=== PATIENT | female | born 1985 | race Two or more races ===

== ENCOUNTER 2020-07-10 12:18 | Outpatient (REF) | payer OTHER, SELFPAY | END 2020-07-10 12:19 | disposition home or self-care (01) | LOC: HO.LAB 12:18 | PROVIDERS: Visit Provider Internal Medicine | DX: Z20.828 Contact with and (suspected) exposure to other viral communicable diseases (principal) | CPT/HCPCS: C9803; U0003 ==

== ENCOUNTER 2023-03-02 13:07 | Outpatient (AMB) | payer OTHER, SELFPAY ==
--- NOTE | 2023-03-02 13:14 | MHC.PC.OV ---
Vital Signs 03/02/23 13:15 Height 5 ft 2 in Weight 200 lb BMI 36.6 BP 130/80 Blood Pressure Location Lt brachial Position Sitting Pulse 71 Pulse Source Pulse Oximeter Temp 98.2 F Temp Source Oral Pulse Oximetry (%) 98 Oxygen Delivery Method Room Air Oxygen Flow Rate 98.2 Intake Visit Reasons: pain on belly button hurt to touch Intake Note: Patient is here with 0pain inside belly button area, no0 known injury, states it started yeaterday, states it travles to her right side. Allergies morphine [MORPHINE] Allergy (Severe, Verified 03/02/23 13:47) CHEST PRESSURE AND TIGHTNESS aspirin [ASPIRIN] Allergy (Intermediate, Verified 03/02/23 13:47) RASH, redness and itching codeine [CODEINE] Allergy (Intermediate, Verified 03/02/23 13:47) RASH, redness and itching ibuprofen [From Motrin] Allergy (Intermediate, Verified 03/02/23 13:47) Hives shellfish derived [SHELLFISH DERIVED] Allergy (Intermediate, Verified 03/02/23 13:47) RED/ITCH STERI-STRIP ADHESIVE Allergy (Intermediate, Uncoded 03/02/23 13:47) RASH Medication List - Last Reconciled 03/02/23 by Vibha Esparza CNP [id number] 50-325-40 mg 1 cap PO Q4-6H PRN cyclobenzaprine 10 mg PO TID PRN erenumab-aooe (Aimovig Autoinjector) 70 mg subcut ONCE 1 month levothyroxine (Synthroid) 175 mcg PO DAILY naproxen 500 mg PO BID 7 days omeprazole 20 mg PO DAILY topiramate 100 mg PO BEDTIME 3 months trazodone 50 mg PO BEDTIME PRN triamcinolone acetonide 0.1% 1 appl topical BID 14 days zolmitriptan (Zomig) 5 mg PO PRN; not to exceed 2 tablets in 24 hours and not to be taken sooner than 2-4 hours apart 1 month Tobacco use date assessed: 03/02/23 Dental Screening Dental Screen Date: 03/02/23 Did you have a dental visit in the last 12 months?: Yes Did you have a dental problem in the last 6 months where you did not have access to dental care?: No Was dental information given to patient?: Patient has dentist HPI HPI Comments History of Present Illness Details 38-year-old female presents with complaints of abdominal pain She notes the pain started yesterday on the umbilical area and have migrated to the right side of abdomen. She describes the pain as sharp and pulling. The pain has progressively gotten worse. No n/v/d or constipation. No fever, chills, body aches, fatigue, or weakness. No changes in bowel habits. Normal appetite. She reports history of appendectomy. Reports regular menstrual cycles and notes her LMP was a week ago. [facility] Surgical History History of appendectomy History of section History of cholecystectomy History of thyroidectomy Family History Father Diabetes Hyperlipidemia Mother Diabetes Skin cancer Hyperlipidemia Asthma Brother Brain cancer Social History Housing: House Alcohol intake: never Patient Tobacco Use Status: Never used Tobacco e-Cigarette/Vaping Use: Never Used Second Hand Smoke Exposure: No service: No Current occupational status: employed 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/hazards: No Cognitive needs: No Hearing needs: No Vision needs: No Questionnaire Thrive Questionnaire Date Thrive assessed: 07/21/21 JESUS ALBERTO-7 AMB Questionnaire JESUS ALBERTO-7 Date JESUS ALBERTO - 7 assessed: 05/20/22 Source: Developed by Drs. Ortega Alaniz, Gianna Carrion, Jeff Cardoso and colleagues, with an educational ismael from [employer]. Review of Systems Const Details: Const Denies chills, Denies fatigue, Denies fever(s), Denies headache(s) and Denies weakness ENT Denies dizziness and Denies headache(s) Card Denies chest pain, Denies lightheadedness, Denies dyspnea and Denies other (Palpitations) Resp Denies cough, Denies dyspnea, Denies wheezing and Denies other ( shortness of breath) GI Reports abdominal pain, Denies melena, Denies hematochezia, Denies change in bowel habits, Denies dyspepsia and Denies nausea Denies hematuria and Denies dysuria Musc Denies abnormal gait, Denies myalgias, Denies arthralgias, Denies numbness and Denies tingling Skin/Breast Denies rash, Denies unusual bruising and Denies wounds Neuro Denies abnormal gait, Denies dizziness, Denies headache(s), Denies memory loss, Denies numbness, Denies Sensory deficit (Neuro), Denies tingling and Denies weakness Psych Denies anxiety, Denies depression, Denies memory loss Endo Denies cold intolerance, Denies fatigue, Denies heat intolerance, Denies polydipsia and Denies polyuria Aller/Immun Denies wheezing Physical exam (Primary Care) Vital Signs: Last Vital Signs Temp 98.2 F 03/02/23 13:15 Pulse 71 03/02/23 13:15 BP 130/80 03/02/23 13:15 Pulse Ox 98 03/02/23 13:15 Oxygen Delivery Method Room Air 03/02/23 13:15 Oxygen Flow Rate 98.2 03/02/23 13:15 BMI result Body Mass Index 36.6 Tobacco/Smoking Status: Tobacco use Status Tobacco use date assessed 03/02/23 03/02/23 13:29 Patient Tobacco Use Status Never used Tobacco 03/02/23 13:29 e-Cigarette/Vaping Use Never Used 03/02/23 13:29 Thrive Assessment: Date of Thrive Assessment Date Thrive assessed 07/21/21 03/02/23 13:29 Const Other: General: no acute distress and well developed Nutritional Appearance: well nourished Orientation/consciousness: patient oriented x3 HENMT Head: Yes normocephalic and Yes atraumatic Eyes General: appearance normal, both eyes and all related structures Pupils: Equal, round and reactive pupils present EOM: EOMs intact bilaterally Resp Effort & Inspection: normal respiratory effort Auscultation: clear to auscultation bilaterally Cardio Rate: regular rate Rhythm: regular rhythm Heart sounds: S1 normal heart sound present, S2 normal heart sound present, no gallops, no murmurs and no rubs GI Palpation (GI): No Abdominal aortic bruit present, Soft to palpation, significant tenderness to palpation of the umbilical region and right lower quadrant, positive psoas sign, No hepatosplenomegaly present and No Rebound tenderness present Auscultation: normal bowel sounds General: Yes no CVA tenderness Back/Spine/Pelvis Back: no CVA tenderness Cervical Spine: cervical ROM normal and No Cervical spine tenderness Thoracic/Lumbar Spine: thoraco-lumbar ROM normal, No pain with thoraco-lumbar ROM, No thoracic spinal tenderness and No lumbar spinal tenderness Extrem General: Yes normal to inspection, No edema and No calf tenderness Skin General: warm and dry. Normal skin color. Normal skin turgor Lesions: no lesions Rashes: no rashes Trauma: no lacerations or abrasions Wounds: no wounds Nails: normal Neuro General: patient oriented x3, gait normal and no focal neuro deficit Cranial nerves: Yes Equal, round and reactive pupils present Cognition (Neuro): normal cognition Gait exam (Neuro): Normal gait present Sensory Exam: No Sensory deficit (Neuro) Psych Appearance: grossly normal Affect: normal affect Attitude: cooperative Thought process: Normal thought process present Assessment and Plan Assessment & Plan (1) Abdominal pain: Code(s): R10.9 - Unspecified abdominal pain Plan: Patient present with complaints of abdominal pain since yesterday. The pain started around the umbilicus and have radiated to her right lower quadrant. Naproxen ordered. Take as prescribed Significant tenderness to palpation of the umbilical region and right lower quadrant, positive psoas sign Stat CT scan ordered to rule out pancreatitis, SBO, diverticulitis, diverticulosis, liver disease, or gynecological issues like ovarian cyst Labs ordered Encouraged to go to the ED with worsening or new symptoms Verbalized understanding and agreed with treatment plan. Orders: Orders Comprehensive Met. Panel Today R10.9 - Unspecified abdominal pain Lipase Today R10.9 - Unspecified abdominal pain Complete Blood Count Auto Diff Today R10.9 - Unspecified abdominal pain CT abdomen w IV con Today R10.9 - Unspecified abdominal pain UA CC w/rflx Micro + Cult Today R10.9 - Unspecified abdominal pain Medications: Changed From naproxen 500 mg PO BID 7 days 14 tabs 0RF To naproxen 500 mg PO BID PRN 30 tabs 0RF pain Coding Level of Care Code Est Pt Level 4 (79071) Diagnoses Abdominal pain R10.9 Time Spent (min) 35
[2023-03-02 13:15] VITALS: BP 130/80; PULSE 71; TEMP 36.8; O2SAT 98; BMI 36.6
== END 2023-03-02 14:14 | disposition home or self-care (01) ==
PROVIDERS: PCP Hospitalist; Visit Provider Nurse Practitioner Family
DX: R10.9 Unspecified abdominal pain (principal)
CPT/HCPCS: 99214

== ENCOUNTER 2023-03-02 14:34 | Outpatient (REF) | payer OTHER, SELFPAY ==
[2023-03-02 14:53] LABS: MANUAL DIFF FLAG NO
[2023-03-02 15:30] LABS: Basophils Percent Auto 0.5 % (0-2); Eosinophils Absolute Auto 0.1 X10*3/uL (0.0-0.4); Eosinophils Percent Auto 0.9 % (0-4); Hematocrit 39.5 % (37.0-47.0); Hemoglobin 13.4 g/dl (12.0-16.0); Imm Gran Abs Auto 0.02 X10*3/uL (0.00-0.03); Imm Gran Pct Auto 0.3 % (0.0-0.4); Lymphocytes Absolute Auto 2.5 X10*3/uL (1.2-4.9); Lymphocytes Percent Auto 32.4 % (20-40); Mean Corpuscular HGB Conc 33.9 g/dl (31.0-35.0); Mean Corpuscular Hemoglobin 30.7 pg (27.0-33.0); Mean Corpuscular Volume 90.6 fL (80.0-98.0); Mean Platelet Volume 9.9 fL (9.4-12.3); Monocytes Absolute Auto 0.5 X10*3/uL (0.1-1.2); Monocytes Percent Auto 5.8 % (2-11); Neutrophils Absolute Auto 4.7 x10*3/uL (2.0-8.3); Neutrophils Percent Auto 60.1 % (45-73); Platelet Count 352 X10*3/uL (160-400); Red Blood Count 4.36 X10*6/uL (4.20-5.50); White Blood Count 7.8 X10*3/uL (4.8-10.8)
[2023-03-02 15:53] LABS: Alanine Aminotransferase 53 U/L (0-31); Albumin Level 3.9 g/dL (3.5-5.0); Alkaline Phosphatase 60 U/L (39-117); Anion Gap 11 (12-20); Aspartate Amino Transferase 36 U/L (5-31); Bilirubin Total 0.5 mg/dL (0.0-1.0); Blood Urea Nitrogen 9 mg/dL (9-16); Carbon Dioxide 26 mmol/L (22-29); Chloride 106 mmol/L (96-108); Estimated Glomerular Filt Rate > 60; Glucose Random 140 mg/dL (60-115); Lipase 18 U/L (8-78); Potassium 3.5 mmol/L (3.3-5.1); Sodium 139 mmol/L (135-145); Total Protein 7.1 g/dL (6.5-8.0)
== END 2023-03-02 14:35 | disposition home or self-care (01) ==
LOC: HO.LAB 14:34
PROVIDERS: PCP Hospitalist; Visit Provider Nurse Practitioner Family
DX: R10.9 Unspecified abdominal pain (principal)
CPT/HCPCS: 36415; 80053; 83690; 85025

== ENCOUNTER 2023-03-03 13:21 | Outpatient (REF) | payer OTHER, SELFPAY ==
--- NOTE | ~2023-03-03 | CT_ITS ---
EXAMINATION: CT ABDOMEN AND PELVIS WITH CONTRAST CLINICAL INFORMATION: Abdominal pain COMPARISON: 06/23/2016 TECHNIQUE: Multidetector volumetric images were obtained from the superior aspect of the liver through the pubic symphysis following administration 85 mL of Omnipaque 350 intravenous contrast. Sagittal and coronal reformatted images were obtained on the technologist's workstation. Oral contrast: No This CT examination was performed using dose optimization techniques as appropriate, variously including the following: *Automated exposure control *Adjustment of mA and/or kV according to patient size (this includes techniques or standardized protocols for targeted exams where dose is matched to indication/reason for exam; i.e. extremities or head) *Use of iterative reconstruction technique DLP: 619 mGy-cm FINDINGS: LUNG BASES: The visualized lung bases are unremarkable. LIVER, GALLBLADDER, AND BILIARY TREE: The liver is normal in size, shape, and attenuation. No focal hepatic lesion or biliary ductal dilatation is present. Patient is status post cholecystectomy CBD is nondilated PANCREAS: Unremarkable. SPLEEN: Unremarkable. ADRENAL GLANDS: Unremarkable. KIDNEYS AND URETERS: The kidneys are normal in size, shape, and attenuation. No hydronephrosis, hydroureter, or calculi seen. No perinephric stranding. BLADDER: Unremarkable. GASTROINTESTINAL TRACT: The small and large bowel are unremarkable. The appendix is surgically absent. ABDOMINAL WALL: No significant hernia is appreciated. LYMPH NODES: Normal. VASCULAR: Unremarkable. PELVIC VISCERA: An bilateral ovarian prominence most likely cysts on the left ovary measured 4.0 x 3.2 cm in length right ovary measured 4.1 x 2.8 cm cyst. No evidence of free fluid in the pelvis OSSEOUS STRUCTURES: Unremarkable. CT/CT abdomen pelvis w IV con IMPRESSION: Bilateral ovarian cysts. Correlate with pelvic ultrasound if clinically warranted Status post cholecystectomy and appendectomy. Fleischner guidelines were followed.
[2023-03-03 14:49] LABS: Appearance Urine Clear; Color Urine Yellow; Glucose Urine UA Negative (Negative); Leukocyte Esterase Urine Negative (Negative); Nitrite Urine Negative (Negative); Specific Gravity - Urine 1.015 (1.005-1.025); Urine Blood Negative (Negative); Urine Ketones Negative (Negative); Urine Protein Negative (Neg-Trace)
[2023-03-03] MEDS: iohexoL 350 MG/ML 100 ML INFUS..BTL IV (17:20)
[2023-03-03] MEDS: Barium Sulfate Oral (Vanilla) 450 ML ORAL.SUSP 900 ML PO (17:21)
== END 2023-03-03 13:22 | disposition home or self-care (01) ==
LOC: HO.CT 13:21
PROVIDERS: PCP Hospitalist; Visit Provider Nurse Practitioner Family
DX: R10.9 Unspecified abdominal pain (principal)
CPT/HCPCS: 74177; 81003; Q9967

== ENCOUNTER 2023-03-19 14:24 | Outpatient (REF) | payer OTHER, SELFPAY ==
--- NOTE | ~2023-03-19 | US_ITS ---
EXAMINATION: US PELVIC AND TRANSVAGINAL CLINICAL INFORMATION: Bilateral ovarian cyst. COMPARISON: None available. TECHNIQUE: Ultrasound of the pelvis is performed using both transabdominal and transvaginal transducers along with Doppler. Transvaginal imaging is performed due to inadequate visualization transabdominally. FINDINGS: Uterus: The uterus is anteverted and measures 9.4 x 5.1 x 6.8 cm. The double wall endometrial thickness is 0.80 cm. The uterus is smooth in contour and has normal myometrial echogenicity. No visible fibroid. Adnexa: Both ovaries are visualized. There is normal color flow to the adnexa. There is no ovarian torsion. There is no pelvic ascites or fluid collection. Right ovary measures 4.6 x 2.6 x 4.5 cm and volume 27.7 mL. No focal lesion is seen. Left ovary measures 3.9 x 2.6 x 4.0 cm and volume 20.9 mL. There is an echogenic solid shadowing nonvascular lesion likely dermoid versus large calcification. There is no free fluid in the cul-de-sac. US/US pelvic and transvaginal IMPRESSION: Anteverted and unremarkable uterus. Large left ovarian probable dermoid. Both ovarian volumes are slightly large. No free fluid in the cul-de-sac.
== END 2023-03-19 14:25 | disposition home or self-care (01) ==
LOC: HO.HMGCX 14:24
PROVIDERS: PCP Hospitalist; Visit Provider Nurse Practitioner Family
DX: R10.9 Unspecified abdominal pain (principal); N83.201 Unspecified ovarian cyst, right side; N83.202 Unspecified ovarian cyst, left side
CPT/HCPCS: 76830; 76856

== ENCOUNTER 2023-04-15 07:29 | Outpatient (REF) | payer OTHER, SELFPAY ==
[2023-04-15 14:15] LABS: CT PCR NOT DETECTED (Not Detect.); NG PCR NOT DETECTED (Not Detect.)
[2023-04-17 06:39] LABS: HPV mRNA E6/E7 rflx Not Detected (Not Detected)
== END 2023-04-15 07:30 | disposition home or self-care (01) ==
LOC: HO.LNP 07:29
PROVIDERS: PCP Hospitalist; Visit Provider Obstetrics & Gynecology
DX: Z12.4 Encounter for screening for malignant neoplasm of cervix (principal); Z11.51 Encounter for screening for human papillomavirus (HPV); N83.299 Other ovarian cyst, unspecified side; N93.9 Abnormal uterine and vaginal bleeding, unspecified
CPT/HCPCS: 0353U; 81025; 87624; 88142

== ENCOUNTER 2023-04-15 07:29 | Outpatient (AMB) | payer OTHER, SELFPAY ==
[2023-04-15 07:34] VITALS: BP 124/76; BMI 36.3
--- NOTE | 2023-04-15 07:34 | A.OFFVIS_ITS ---
Intake Vital Signs 04/15/23 07:34 Height 5 ft 2 in Weight 198 lb 6.656 oz BMI 36.3 BP 124/76 Intake Visit Reasons: Ovarian Cyst/PCP referral Administrative Support Specialist Required: No Information Interpreted: non-clinical & clinical Accompanied by: Self / Same As Patient Allergies morphine [MORPHINE] Allergy (Severe, Verified 04/15/23 07:35) CHEST PRESSURE AND TIGHTNESS aspirin [ASPIRIN] Allergy (Intermediate, Verified 04/15/23 07:35) RASH, redness and itching codeine [CODEINE] Allergy (Intermediate, Verified 04/15/23 07:35) RASH, redness and itching ibuprofen [From Motrin] Allergy (Intermediate, Verified 04/15/23 07:35) Hives shellfish derived [SHELLFISH DERIVED] Allergy (Intermediate, Verified 04/15/23 07:35) RED/ITCH STERI-STRIP ADHESIVE Allergy (Intermediate, Uncoded 04/15/23 07:35) RASH Is last menstrual period known: Yes Last menstrual period: 03/16/23 HPI HPI Comments History of Present Illness Details Presenting referred from PCP regarding heavy menstrual cycle associated with pelvic cramping and and ovarian cyst identified on a recent ultrasound. Pelvic ultrasound done on 03/19/2023 showed the following: Uterus: The uterus is anteverted and measures 9.4 x 5.1 x 6.8 cm. The double wall endometrial thickness is 0.80 cm. The uterus is smooth in contour and has normal myometrial echogenicity. No visible fibroid. Adnexa: Both ovaries are visualized. There is normal color flow to the adnexa. There is no ovarian torsion. There is no pelvic ascites or fluid collection. Right ovary measures 4.6 x 2.6 x 4.5 cm and volume 27.7 mL. No focal lesion is seen. Left ovary measures 3.9 x 2.6 x 4.0 cm and volume 20.9 mL. There is an echogenic solid shadowing nonvascular lesion likely dermoid versus large calcification. There is no free fluid in the cul-de-sac. Last mammogram was 4 years ago, last co testing was many years ago [facility] Medical History History of hypothyroidism Surgical History History of thyroidectomy History of appendectomy History of cholecystectomy History of section Family History Father Diabetes Hyperlipidemia Mother Diabetes Skin cancer Hyperlipidemia Asthma Brother Brain cancer Social History Household Members: Spouse and Children Housing: House Alcohol intake: never Patient Tobacco Use Status: Never used Tobacco e-Cigarette/Vaping Use: Never Used Second Hand Smoke Exposure: No service: No Current occupational status: employed 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 [employer] 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/hazards: No Sexual orientation: Straight/Heterosexual Gender identity: Female Cognitive needs: No Hearing needs: No Vision needs: No Female Reproductive History Menstrual Date of last menstrual period: 03/16/23 Total pregnancies: 5 Full term: 2 Number of Living Children: 2 Ab spontaneous: 3 Review of Systems Const All systems reviewed & are unremarkable except as noted in HPI and below Card Reports as per HPI Resp Reports as per HPI GI Reports as per HPI and Reports no additional complaints Reports as per HPI Physical Exam Vital Signs: BMI result Body Mass Index 36.3 Const General: cooperative, healthy appearing and comfortable Chest Chest palpation & inspection: normal inspection of the chest and normal pa lpation of entire chest wall Breast/axilla inspection: normal inspection of the breasts and normal inspection of the axillae Breast/axilla palpation: normal palpation of the breasts, normal palpation of the axillae and no axillary lymphadenopathy Resp Effort & Inspection: normal respiratory effort Auscultation: clear to auscultation bilaterally Percussion: percussion normal Cardio Palpation: normal PMI Rate: regular rate Rhythm: regular rhythm Heart sounds: no murmurs and no rubs Peripheral pulses: Peripheral pulses 2+ throughout GI Inspection: Yes normal to inspection Palpation (GI): Soft to palpation, nontender, no guarding, not rigid and No hepatosplenomegaly present Percussion: Yes normal to percussion Auscultation: normal bowel sounds Rectal Exam - Female: deferred General: Yes bladder normal to palpation External Female Exam: No lesion Speculum Exam - Vagina: normal appearance of the vagina, normal palpation, normal vaginal discharge and not erythematous Speculum Exam - Cervix: normal appearance of the cervix and normal palpation Bimanual exam- vagina & uterus: normal bimanual exam, normal palpation, uterine size normal, bladder normal to palpation, consistency normal and normal palpation Bimanual Exam- Adnexa, other: normal adnexae, no masses and no tenderness Assessment & Plan Assessment & Plan (1) Complex ovarian cyst: Comment: Possible dermoid Code(s): N83.299 - Other ovarian cyst, unspecified side Plan: UPT done in the office was negative, GC/CT collected. CA 125 ordered Discussed with the patient the complex ovarian cyst by ultrasound. Discussed with the patient the Ultrasound findings, the main limitation of transvaginal ultrasonography alone as a diagnostic tool to distinguish benign from malignant masses relates to its lack of specificity and low positive predictive value for cancer. The differential diagnosis discussed with the patient includes the following but not limited to: benign and malignant gynecological and non- gynecological causes. Explained to the patient that 1 of the possible causes could be dermoid tumor per ultrasound , these tumors have a characteristic imaging appearance, which allows reasonably accurate noninvasive diagnosis in many cases with high reported specificity is 98 to 100 percent, but definitive diagnosis is made at the time of surgical excision. Malignant transformation occurs in 0.2 to 2 percent of mature cystic teratomas The treatment is laparoscopic ovarian cystectomy /possible oophorectomy in order to make a definitive diagnosis, preserve ovarian tissue, and avoid potential problems such as torsion, rupture, or development of malignant components. For women who have completed childbearing, salpingo-oophorectomy is also acceptable treatment. Benign cystic teratomas do not recur if surgically resected. Laboratory evaluation include UPT and GC/CT , serum tumor marker CA 125 . Discussed with the patient that CA 125 is a protein associated with epithelial ovarian malignancies, but also frequently expressed at lower levels by nonmalignant tissue. Elevation of CA 125 levels may occur in nonmalignant gynecologic conditions, and in non-gynecologic cancers, It is most useful in postmenopausal women and in identifying non mucinous epithelial cancer. The CA 125 level is elevated in 80% of patients with epithelial ovarian cancer but in only 50% of patients with stage I disease. The overall sensitivity of CA 125 testing in distinguishing benign from malignant adnexal masses reportedly ranges from 61% to 90%; discussed with the patient the specificity, positive predictive value and negative predictive value. Discussed with the patient options of treatment , in case CA 125 is not elevated, including laparoscopy ovarian cystectomy/oophorectomy vs. expectant management with repeat US in repeating pelvic US in 6-12 weeks from previous US. If the ovarian complex cyst is persistent larger and / or more complex looking, or higher CA 125 will refer to gynecologic Oncology. All pros, cons, risks and benefits of each approach were discussed with the patient including but not limited to a delay in the diagnosis and treatment of ovarian cancer affecting the prognosis; The patient decided to go ahead with repeat ultrasound within 3 weeks since last ultrasound was done in 03/19. Instructions given the patient to schedule a 3 weeks follow-up ultrasound appointment. All questions were answered & the patient verbalized understanding and agreed with the plan. (2) Abnormal uterine bleeding (AUB): Comment: With dysmenorrhea Code(s): N93.9 - Abnormal uterine and vaginal bleeding, unspecified Plan: Co testing done, GC and chlamydia taken CBC, TSH, prolactin, HCG, screening mammogram and repeat pelvic ultrasound ordered. Discussed with the patient the different causes of abnormal bleeding including thyroid disorders, uterine and ovarian pathology, endometrial hyperplasia, carcinoma and other potential causes. Discussed with the patient the work up including CBC (to r/o anemia), TSH, pelvic Ultrasound, endometrial biopsy to r/o endometrial pathology. All questions answered and the patient verbalized understanding. Instructed the patient to schedule an appointment for an endometrial biopsy in 2 weeks. Orders: Orders US pelvic and transvaginal 3 Weeks N93.9 - Abnormal uterine and vaginal bleeding , unspecified Prolactin Today N93.9 - Abnormal uterine and vaginal bleeding, unspecified MM screening mammo BI Today Z12.31 - Encounter for screening mammogram for malignant neoplasm of breast CA-125 Today N83.299 - Other ovarian cyst, unspecified side HCG Quantitative Today N93.9 - Abnormal uterine and vaginal bleeding, unspecified TSH reflex Free T4 Today N93.9 - Abnormal uterine and vaginal bleeding, unspecified Complete Blood Count no Diff Today N93.9 - Abnormal uterine and vaginal bleeding, unspecified Coding Level of Care Code New Pt Level 3 (34655) Diagnoses Complex ovarian cyst N83.299 Abnormal uterine bleeding (AUB) N93.9
== END 2023-04-15 08:30 | disposition home or self-care (01) ==
PROVIDERS: PCP Hospitalist; Visit Provider Obstetrics & Gynecology
DX: N83.299 Other ovarian cyst, unspecified side (principal); N93.9 Abnormal uterine and vaginal bleeding, unspecified; Z32.02 Encounter for pregnancy test, result negative
CPT/HCPCS: 99203

== ENCOUNTER 2023-04-23 16:16 | Outpatient (REF) | payer OTHER, SELFPAY | END 2023-04-23 16:17 | disposition home or self-care (01) | LOC: HO.MAMMO 16:16 | PROVIDERS: PCP Nurse Practitioner Family; Visit Provider Obstetrics & Gynecology | DX: Z12.31 Encounter for screening mammogram for malignant neoplasm of breast (principal) | CPT/HCPCS: 77063; 77067 ==

== ENCOUNTER → 2023-04-23 16:30 | Outpatient (BNV) | payer OTHER, SELFPAY | PROVIDERS: PCP Nurse Practitioner Family; Visit Provider Radiology Diagnostic Radiology | DX: Z12.31 Encounter for screening mammogram for malignant neoplasm of breast (principal) | CPT/HCPCS: 77063; 77067 ==

== ENCOUNTER 2023-05-06 16:23 | Outpatient (REF) | payer OTHER, SELFPAY ==
--- NOTE | ~2023-05-06 | US_ITS ---
EXAMINATION: US PELVIS CLINICAL INFORMATION: Abnormal uterine and vaginal bleeding; the last menstrual period was 2 days prior. COMPARISON: Pelvic ultrasound dated 03/19/2023; CT abdomen and pelvis dated 03/03/2023. TECHNIQUE: Ultrasound of the pelvis is performed using both transabdominal and transvaginal transducers along with Doppler. Transvaginal imaging is performed due to inadequate visualization transabdominally. FINDINGS: Uterus: The uterus is anteverted and anteflexed. The uterus measures 10.4 x 4.5 x 5.5 cm. Nabothian cysts are seen within the cervix. There is trace endocervical free fluid. The double wall endometrial thickness is 7 mm. The uterus is smooth in contour and has normal myometrial echogenicity. No visible fibroid. Adnexa: Both ovaries are visualized. There is normal color flow to the adnexa. There is no ovarian torsion. There is no pelvic ascites or fluid collection. Right ovary measures 2.8 x 2.2 x 2.1 cm, volume 10.0 mL. Left ovary measures 4.3 x 2.9 x 3.2 cm, volume 21.0 mL. The left ovary contains a 1.0 x 1.1 x 0.9 cm hypoechoic collection with decreased through sound transmission and no associated color Doppler flow. On the ultrasound dated 03/19/2023, this measured 2.1 x 2.0 x 2.3 cm. Of note, no calcification is seen of the left ovary on the CT examination of 03/03/2023. US/US pelvic and transvaginal IMPRESSION: 1. A persistent 1.0 cm hypoechoic, shadowing density is seen within the left ovary. This appears diminished in size from 03/19/2023. No corresponding calcification is seen of the left ovary on the CT examination of 03/03/2023. This could represent a dermoid tumor, endometrioma or resolving hemorrhagic cyst, although the shadowing is somewhat atypical. The interim decrease in size is reassuring. Consider continued ultrasound follow-up to resolution. If clinically warranted, this could be further evaluated with pelvic MRI. 2. Nabothian cysts are seen within the cervix. 3. There is trace endocervical free fluid.
== END 2023-05-06 16:24 | disposition home or self-care (01) ==
LOC: HO.US 16:23
PROVIDERS: PCP Nurse Practitioner Family; Visit Provider Obstetrics & Gynecology
DX: N93.9 Abnormal uterine and vaginal bleeding, unspecified (principal)
CPT/HCPCS: 76830; 76856

== ENCOUNTER 2023-06-01 07:34 | Outpatient (REF) | payer OTHER, SELFPAY | END 2023-06-01 07:35 | disposition home or self-care (01) | LOC: HO.LNP 07:34 | PROVIDERS: PCP Hospitalist; Visit Provider Obstetrics & Gynecology | DX: N93.9 Abnormal uterine and vaginal bleeding, unspecified (principal); N83.299 Other ovarian cyst, unspecified side | CPT/HCPCS: 58100; 81025; 88305; 99212 ==

== ENCOUNTER 2023-06-01 07:34 | Outpatient (AMB) | payer OTHER, SELFPAY ==
[2023-06-01 07:44] VITALS: BP 110/70; BMI 36.3
--- NOTE | 2023-06-01 07:44 | A.OFFVIS_ITS ---
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 Cleaner Repair Person: Vacuum Cleaner Repair Person Present (Loretta REYNOLDS) Accompanied by: Self / Same As Patient Allergies morphine [MORPHINE] Allergy (Severe, Verified 06/01/23 07:45) CHEST PRESSURE AND TIGHTNESS aspirin [ASPIRIN] Allergy (Intermediate, Verified 06/01/23 07:45) RASH, redness and itching codeine [CODEINE] Allergy (Intermediate, Verified 06/01/23 07:45) RASH, redness and itching ibuprofen [From Motrin] Allergy (Intermediate, Verified 06/01/23 07:45) Hives shellfish derived [SHELLFISH DERIVED] Allergy (Intermediate, Verified 06/01/23 07:45) RED/ITCH STERI-STRIP ADHESIVE Allergy (Intermediate, Uncoded 06/01/23 07:45) RASH Is last menstrual period known: No HPI HPI Comments History of Present Illness Details Pen EMB. Pelvic ultrasound showed the following: Uterus: The uterus is anteverted and anteflexed. The uterus measures 10.4 x 4.5 x 5.5 cm. Nabothian cysts are seen within the cervix. There is trace endocervical free fluid. The double wall endometrial thickness is 7 mm. The uterus is smooth in contour and has normal myometrial echogenicity. No visible fibroid. Adnexa: Both ovaries are visualized. There is normal color flow to the adnexa. There is no ovarian torsion. There is no pelvic ascites or fluid collection. Right ovary measures 2.8 x 2.2 x 2.1 cm, volume 10.0 mL. Left ovary measures 4.3 x 2.9 x 3.2 cm, volume 21.0 mL. The left ovary contains a 1.0 x 1.1 x 0.9 cm hypoechoic collection with decreased through sound transmission and no associated color Doppler flow. On the ultrasound dated 03/19/2023, this measured 2.1 x 2.0 x 2.3 cm. Of note, no calcification is seen of the left ovary on the CT examination of 03/03/2023. 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 hysteroscopy D&C) & the risks were discussed with the patient including but not limited: pain, uterine perforation, bleeding, infection, possible injury to bladder, bowel, ureter, possible need for blood transfusion with all its possible risks. The patient verbalized understanding all questions answered and signed consent. Urine test done in the office was negative The patient was placed into the dorsal lithotomy position; a speculum was inserted in the vagina. Using aseptic technique for the procedure, the cervix was cleansed with Betadine. The anterior lip of the cervix was grasped with a single tooth tenaculum. The uterus was sounded to 10 cm with a 4 mm Pipelle was used. Tissues samples were obtained and placed in formalin, in a patient labeled container and sent to the pathology department. At the end of the procedure, there was minimal bleeding noted The patient tolerated the procedure well and was discharged in good condition with the following instructions: Nothing in the vagina until the bleeding stops. No sex until the bleeding stops, to call if any of the following occurs: fever (>100.4), flu-like symptoms, abdominal pain, heavy bleeding, four smelling vaginal discharge. The patient was instructed to schedule a Follow up appointment in 2 weeks to discuss pathology results of the biopsy and treatment options. This note was generated with a voice recognition program. Some errors may have been overlooked during the review of this note. Sometimes these errors may affect the content or meaning of a given sentence. [id number] Biopsy Results AMB Test Urine AMB Test Urine Negative Last Edit by Loretta Teixeira CMA on 07:46 Assessment & Plan Assessment & Plan (1) Abnormal uterine bleeding (AUB): Comment: With dysmenorrhea Code(s): N93.9 - Abnormal uterine and vaginal bleeding, unspecified Plan: EMB done, see procedure note (2) Complex ovarian cyst: Comment: Decreased in size Code(s): N83.299 - Other ovarian cyst, unspecified side Plan: Discussed with the patient the complex ovarian cyst by ultrasound. Discussed with the patient the Ultrasound findings, the main limitation of transvaginal ultrasonography alone as a diagnostic tool to distinguish benign from malignant masses relates to its lack of specificity and low positive predictive value for cancer. The differential diagnosis discussed with the patient includes the following but not limited to: benign and malignant gynecological and non-gynecological causes. Laboratory evaluation include UPT and GC/CT , post done and negative, serum tumor marker CA 125, which not been done yet . Discussed with the patient that CA 125 is a protein associated with epithelial ovarian malignancies, but also frequently expressed at lower levels by nonmalignant tissue. Elevation of CA 125 levels may occur in nonmalignant gynecologic conditions, and in non-gynecologic cancers, It is most useful in postmenopausal women and in identifying non mucinous epithelial cancer. The CA 125 level is elevated in 80% of patients with epithelial ovarian cancer but in only 50% of patients with stage I disease. The overall sensitivity of CA 125 testing in distinguishing benign from malignant adnexal masses reportedly ranges from 61% to 90%; discussed with the patient the specificity, positive predictive value and negative predictive value. Discussed with the patient options of treatment , in case CA 125 is not elevated, including laparoscopy ovarian cystectomy/oophorectomy vs. expectant management with repeat US in repeating pelvic US in 6 weeks from previous US. If the ovarian complex cyst is persistent larger and / or more complex looking, or higher CA 125 will refer to gynecologic Oncology. All pros, cons, risks and benefits of each approach were discussed with the patient including but not limited to a delay in the diagnosis and treatment of ovarian cancer affecting the prognosis; The patient decided to go ahead with expectant management. Instructions given the patient to schedule a 6 week follow-up ultrasound appointment. All questions were answered & the patient verbalized understanding and agreed with the plan. Orders: Orders US pelvic and transvaginal 6 Weeks N83.299 - Other ovarian cyst, unspecified side AMB HCG Urine Test Today Z32.02 - Encounter for test, result negative AMB Endometrial Biopsy Today N93.9 - Abnormal uterine and vaginal bleeding, unsp ecified Coding Level of Care Code Est Pt Level 3 (58369) Procedure Only Diagnoses Abnormal uterine bleeding (AUB) N93.9 Complex ovarian cyst N83.299 CPT Codes Endometrial Biopsy - CPT: 95990-Sfddurvasjp Biopsy ([id number])
== END 2023-06-01 08:05 | disposition home or self-care (01) ==
PROVIDERS: PCP Hospitalist; Visit Provider Obstetrics & Gynecology
DX: N83.292 Other ovarian cyst, left side (principal); N93.9 Abnormal uterine and vaginal bleeding, unspecified; Z32.02 Encounter for pregnancy test, result negative
CPT/HCPCS: 58100; 99213

== ENCOUNTER 2023-07-07 13:40 | Outpatient (REF) | payer OTHER, SELFPAY ==
--- NOTE | ~2023-07-07 | US_ITS ---
EXAMINATION: US PELVIS CLINICAL INFORMATION: Ovarian cysts. Last menstrual period approximately 2 months ago. COMPARISON: 05/06/2023. TECHNIQUE: Ultrasound of the pelvis is performed using both transabdominal and transvaginal transducers along with Doppler. Transvaginal imaging is performed due to inadequate visualization transabdominally. FINDINGS: The uterus is heterogeneous and measures 9.6 x 5.4 x 6.0 cm. No discrete fibroids are identified. Endometrial thickness is 0.8 cm. No significant free fluid. Right ovary measures 4.9 x 2.0 x 4.2 cm, volume 21.5 mL. Right ovary is grossly unremarkable, although visualization limited due to bowel gas. Left ovary measures 5.1 x 2.8 x 3.4 cm, volume 25.7 mL. Left ovarian 2.4 x 2.1 x 2.2 cm heterogeneous lesion of mixed echogenicity with some hyperechoic areas raising the possibility of a dermoid. Left ovarian lesion measured 1.1 x 1.1 x 0.9 cm on ultrasound of 05/06/2023, and 2.2 x 2.0 x 2.3 cm on ultrasound of 03/19/2023, although differences in measurements could partially be attributable to technical differences as well as limited visualization due to bowel gas. US/US pelvic and transvaginal IMPRESSION: Left ovarian 2.4 cm lesion of mixed echogenicity with some hyperechoic areas raising the possibility of a dermoid. Left ovarian lesion measured 1.1 x 1.1 x 0.9 cm on ultrasound of 05/06/2023 and 2.2 x 2.0 x 2.3 cm on ultrasound of 03/19/2023, although differences in measurements could partially be attributable to technical differences as well as limited visualization due to bowel gas. Gynecologic consultation and additional imaging with MRI employing intravenous contrast recommended.
[2023-07-07 16:51] LABS: Hematocrit 42.7 % (37.0-47.0); Hemoglobin 14.1 g/dl (12.0-16.0); Mean Corpuscular Hemoglobin 30.2 pg (27.0-33.0); Mean Corpuscular Volume 91.4 fL (80.0-98.0); Mean Platelet Volume 10.4 fL (9.4-12.3); Platelet Count 290 X10*3/uL (160-400); Red Blood Count 4.67 X10*6/uL (4.20-5.50); Red Cell Distribution Width 12.2 % (11.0-16.0); White Blood Count 6.6 X10*3/uL (4.8-10.8)
[2023-07-07 17:50] LABS: HCG Quantitative < 2 mIU/mL; TSH reflex Free T4 12.44 uIU/mL (0.32-4.0)
[2023-07-07 19:03] LABS: Free T4 (Free Thyroxine) 0.68 ng/dL (0.71-1.85)
[2023-07-09 05:58] LABS: Prolactin 4.9 ng/mL
[2023-07-09 13:00] LABS: CA-125 5 U/mL (<35)
== END 2023-07-07 13:41 | disposition home or self-care (01) ==
LOC: HO.HMGCX 13:40
PROVIDERS: PCP Hospitalist; Visit Provider Obstetrics & Gynecology
DX: N83.299 Other ovarian cyst, unspecified side (principal); N93.9 Abnormal uterine and vaginal bleeding, unspecified
CPT/HCPCS: 36415; 76830; 76856; 84146; 84439; 84443; 84702; 85027; 86304

== ENCOUNTER 2023-07-27 07:36 | Outpatient (AMB) | payer OTHER, SELFPAY ==
--- NOTE | 2023-07-27 07:39 | MHC.OFFVIS ---
Intake Vital Signs 07/27/23 07:41 Height 5 ft 2 in Weight 198 lb 6.656 oz BMI 36.3 BP 118/70 Intake Visit Reasons: EMB results/ultra sound follow up Allergies morphine [MORPHINE] Allergy (Severe, Verified 06/01/23 07:45) CHEST PRESSURE AND TIGHTNESS aspirin [ASPIRIN] Allergy (Intermediate, Verified 06/01/23 07:45) RASH, redness and itching codeine [CODEINE] Allergy (Intermediate, Verified 06/01/23 07:45) RASH, redness and itching ibuprofen [From Motrin] Allergy (Intermediate, Verified 06/01/23 07:45) Hives shellfish derived [SHELLFISH DERIVED] Allergy (Intermediate, Verified 06/01/23 07:45) RED/ITCH STERI-STRIP ADHESIVE Allergy (Intermediate, Uncoded 06/01/23 07:45) RASH HPI HPI Comments History of Present Illness Details The patient is presenting for follow-up to discuss the results of her abnormal uterine bleeding workup and options of treatment. The following workup was done.: H&H= 14.1/42.7 TSH elevated at 12.41 and free T4 low at 0.68 HCG, prolactin within normal GC and chlamydia were negative. Endometrial biopsy pathology showed proliferative endometrium no evidence of hyperplasia and/or malignancy. Co testing was done was negative. Mammogram was BI-RADS 1 Pelvic ultrasound showed the following: The uterus is heterogeneous and measures 9.6 x 5.4 x 6.0 cm. No discrete fibroids are identified. Endometrial thickness is 0.8 cm. No significant free fluid. Right ovary measures 4.9 x 2.0 x 4.2 cm, volume 21.5 mL. Right ovary is grossly unremarkable, although visualization limited due to bowel gas. Left ovary measures 5.1 x 2.8 x 3.4 cm, volume 25.7 mL. Left ovarian 2.4 x 2.1 x 2.2 cm heterogeneous lesion of mixed echogenicity with some hyperechoic areas raising the possibility of a dermoid. Left ovarian lesion measured 1.1 x 1.1 x 0.9 cm on ultrasound of 05/06/2023, and 2.2 x 2.0 x 2.3 cm on ultrasound of 03/19/2023, although differences in measurements could partially be attributable to technical differences as well as limited visualization due to bowel gas. 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 [employer] 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/hazards: No Sexual orientation: Straight/Heterosexual Gender identity: Female Cognitive needs: No Hearing needs: No Vision needs: No Review of Systems Const All systems reviewed & are unremarkable except as noted in HPI and below Reports as per HPI and Reports no additional complaints GI Reports no additional complaints Reports no additional complaints Physical Exam Vital Signs: Last Vital Signs BP 118/70 07/27/23 07:41 BMI result Body Mass Index 36.3 Assessment & Plan Assessment & Plan (1) Abnormal uterine bleeding (AUB): Comment: With dysmenorrhea Code(s): N93.9 - Abnormal uterine and vaginal bleeding, unspecified Plan: Discussed with the patient the results of the work up done and options of treatment including Lysteda, control pills, Mirena IUD, endometrial ablation and hysterectomy. All pros, cons, risks and benefits if each option was discussed with the patient and the patient decided to go ahead with Mirena IUD so a more detailed discussion about it was conducted including mechanism of action, risks (uterine perforation, infection, injury to bladder, bowel, displacement, and others) benefits (hypo menorrhea, amenorrhea, ...). GC/CT were taken recently and were negative and the patient was instructed to schedule Mirena IUD insertion on day 1-5 of next cycle . All questions answered, the patient verbalized understanding (2) Complex ovarian cyst: Code(s): N83.299 - Other ovarian cyst, unspecified side Plan: Discussed with the patient the persistent complex ovarian cyst solid component by Ultrasound. The differential diagnosis discussed with the patient includes the following but not limited to: benign and malignant gynecological and non-gynecological. Discussed with the patient that per ACOG guidelines, when a patient with a suspicious or persistent complex adnexal mass requires surgical evaluation, a physician trained to appropriately stage and debulk ovarian cancer should perform the operation. Surgical exploration should be performed in a hospital facility that has the necessary support and consultative services to optimize the patient?s outcome. When a malignant ovarian tumor is discovered incidentally, a gynecologic oncologist should be consulted intraoperatively. Recommended CA 125 and proceed with laparoscopic ovarian cystectomy/possible oophorectomy. Informed the patient that there is no gynecologic oncologist available on staff at [facility] , therefore the patient will be referred to an OBGYN practice at [facility] of her choice where during surgery there is immediate access to a gynecologic oncologist intraoperatively in case there was any suspicion or evidence of malignancy. The patient elected to be referred to an OBGYN at [facility]. Instructed the patient to call our office back in case a referral appointment is not scheduled, missed or canceled so that we will assist on rescheduling another appointment, the patient verbalized understanding agreed with the plan. (3) Hypothyroidism (acquired): Code(s): E03.9 - Hypothyroidism, unspecified Plan: Discussed with patient results of heard elevated TSH and low free T4, the patient schedule appointments PCP for further management Orders: Orders Carbohydrate Antigen 19-9 Today N83.299 - Other ovarian cyst, unspecified side Carcinoembryonic Antigen Today N83.299 - Other ovarian cyst, unspecified side CA-125 Today N83.299 - Other ovarian cyst, unspecified side Coding Level of Care Code Est Pt Level 3 (49367) Diagnoses Abnormal uterine bleeding (AUB) N93.9 Complex ovarian cyst N83.299 Hypothyroidism (acquired) E03.9
[2023-07-27 07:41] VITALS: BP 118/70; BMI 36.3
== END 2023-07-27 09:07 | disposition home or self-care (01) ==
PROVIDERS: PCP Hospitalist; Visit Provider Obstetrics & Gynecology
DX: N93.9 Abnormal uterine and vaginal bleeding, unspecified (principal); N83.299 Other ovarian cyst, unspecified side; E03.9 Hypothyroidism, unspecified
CPT/HCPCS: 99213

== ENCOUNTER → 2023-07-27 07:36 | Outpatient (BNVA) | payer OTHER, SELFPAY | PROVIDERS: PCP Hospitalist; Visit Provider Obstetrics & Gynecology | DX: N93.9 Abnormal uterine and vaginal bleeding, unspecified (principal); N83.299 Other ovarian cyst, unspecified side; E03.9 Hypothyroidism, unspecified | CPT/HCPCS: 99212 ==

== ENCOUNTER 2024-01-10 08:19 | Outpatient (AMB) | payer OTHER, SELFPAY ==
--- NOTE | 2024-01-10 08:28 | A.OFFPC_ITS ---
Vital Signs 01/10/24 08:35 Height 5 ft 0.71 in Weight 197 lb BMI 37.6 BP 116/71 Blood Pressure Location Rt brachial Position Sitting Pulse 72 Pulse Source Pulse Oximeter Temp 98.4 F Temp Source Temporal Artery Scan Pulse Oximetry (%) 97 Oxygen Delivery Method Room Air Intake Visit Reasons: Check up Intake Note: Physical. Pain left hand Database Operator Required: No Is last menstrual period known: No Allergies morphine [MORPHINE] Allergy (Severe, Verified 01/10/24 08:30) CHEST PRESSURE AND TIGHTNESS aspirin [ASPIRIN] Allergy (Intermediate, Verified 01/10/24 08:30) RASH, redness and itching codeine [CODEINE] Allergy (Intermediate, Verified 01/10/24 08:30) RASH, redness and itching ibuprofen [From Motrin] Allergy (Intermediate, Verified 01/10/24 08:30) Hives shellfish derived [SHELLFISH DERIVED] Allergy (Intermediate, Verified 01/10/24 08:30) RED/ITCH STERI-STRIP ADHESIVE Allergy (Intermediate, Uncoded 01/10/24 08:30) RASH Medication List - Last Reconciled 01/10/24 by JEOVANNY Casey levothyroxine (Synthroid) 175 mcg PO DAILY Tobacco use date assessed: 01/10/24 Dental Screening Dental Screen Date: 01/10/24 Did you have a dental visit in the last 12 months?: Yes Did you have a dental problem in the last 6 months where you did not have access to dental care?: No Was dental information given to patient?: Patient has dentist HPI HPI Comments History of Present Illness Details This is a 38-year-old female with a past medical history of bilateral ovarian cysts, anxiety, migraines, hypothyroidism and eczema presenting for her physical exam. This is my first visit with the patient. She is having surgery February 09 for ovarian cysts. This will be done with [facility] computer bookkeeper/onc. 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 She is transferring to another location in [place] out of [place]. She is excited to make this change. She is followed by [facility] endocrinology. Hypothyroidism is treated with levothyroxine 175 mcg once daily. She had a follow up appointment a month ago, and she was told thyroid function was normal. She needs a refill on the medication. They recommended she get a sleep study due to snoring and fatigue. Patient says even if she gets a full night's sleep she wakes up and does not feel well rested. She would like a referral to Dermatology for skin tags on her neck. They catch on her necklace and bother her. She noticed a bump on the back of her left wrist 2 months ago. It has not changed. No trauma. It is painful when she bumps it or wears her watch. [facility] Medical History (Updated 01/10/24 @ 09:20 by JEOVANNY Casey) Ganglion cyst of dorsum of left wrist History of hypothyroidism Surgical History History of thyroidectomy History of appendectomy History of cholecystectomy History of section Family History Father Diabetes Hyperlipidemia Mother Diabetes Skin cancer Hyperlipidemia Asthma Brother Brain cancer Social History Household Members: Spouse and Children Housing: House Alcohol intake: never Patient Tobacco Use Status: Never used Tobacco e-Cigarette/Vaping Use: Never Used Second Hand Smoke Exposure: No service: No Current occupational status: employed 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 1. Little interest or pleasure in doing things: not at all 2. Feeling down, depressed, or hopeless: not at all 3. Trouble falling or staying asleep, or sleeping too much: nearly every day 4. Feeling tired or having little energy: nearly every day 5. Poor appetite or overeating: not at all 6. Feeling bad about yourself - or that you are a failure or have let yourself or your family down: not at all 7. Trouble concentrating on things, such as reading the newspaper or watching television: not at all 8. Moving or speaking so slowly that other people could have noticed. Or the opposite - being so fidgety or restless that you have been moving around a lot more than usual: not at all 9. Thoughts that you would be better off or of hurting yourself in some way: not at all Total score: 6 Depression Screening Interpretation: Positive Depression Screening Follow-up: Other (Positive screening due to sleep-related questions and fatigue which are being evaluated. Patient denies depression.) Depression Screening Done: Yes 53034 - PHQ-9 Billing: Yes Source: Developed by Drs. Ortega Alaniz, Gianna Carrion, Jeff Cardoso and colleagues, with an educational ismael from [facility] [place]. Thrive Questionnaire Date Thrive assessed: 01/10/24 I am a: Patient What is your living situation today?: I have a steady place to live Within the past 12 months, did the food you bought not last and you didn't have the money to get more?: Never true Within the past 12 months, did you worry whether your food would run out before you got money to buy more?: Never true Do you have trouble getting transportation to medical appointments?: No Do you have trouble paying your heating and electricity bill?: No Do you have trouble taking care of your child, family member or friend?: No Do you have trouble with day-to-day activities such as bathing, preparing meals, shopping, managing finances, etc.?: No Are you currently unemployed and looking for a job?: No Are you interested in more education?: No Currently or been in a relationship where the following occur: no concerns reported THRIVE Score: 0 AUDIT C Alcohol Use Questionnaire (AUDIT-C) 1. How often do you have a drink containing alcohol?: Never 3. How often do you have six or more drinks on one occasion?: Never Total Score: 0 JESUS ALBERTO-7 AMB Questionnaire JESUS ALBERTO-7 Date JESUS ALBERTO - 7 assessed: 01/10/24 Feeling nervous, anxious, or on edge: 0 = Not at all Not being able to stop or control worryin = Not at all Worrying too much about different things: 0 = Not at all Trouble relaxin = Not at all Being so restless that it is hard to sit still: 0 = Not at all Becoming easily annoyed or irritable: 2 = More than half the days Feeling afraid as if something awful might happen: 0 = Not at all Total JESUS ALBERTO-7 score (0-4 normal; 5-9 mild; 10-14 moderate; 15-21 severe): 2 Source: Developed by Drs. Ortega Alaniz, Gianna Carrion, Jeff Cardoso and colleagues, with an educational ismael from [facility] [place]. JESUS ALBERTO-7 Assessment Billing JESUS ALBERTO-7 Assessment Tool: JESUS ALBERTO-7 Assessment 88510 Review of Systems Const Details: Constitutional: No unexplained weight loss, fever, chills or night sweats. Eyes: No vision changes, blurry vision, double vision, eye pain, eye redness, eye discharge. ENT: No hearing loss, sneezing, congestion, runny nose or sore throat. Respiratory: No shortness of breath, cough or sputum production. Cardiovascular: No chest pain, chest pressure or chest discomfort. No palpitations or pedal edema. Gastrointestinal: No anorexia, nausea, vomiting or diarrhea. No abdominal pain or blood in stool. Genitourinary: No dysuria, hematuria, urinary frequency. Neurologic: No headache, dizziness, syncope, unilateral weakness, ataxia, numbness or tingling in the extremities. Musculoskeletal: No muscle pain, back pain, joint pain or swelling. Hematologic/Lymphatics: No bleeding or bruising. No painful lymph nodes. Skin: See HPI Endocrine: No cold or heat intolerance. No polyuria or polydipsia. Psychiatric: No depression or anxiety. No SI/HI. Physical exam (Primary Care) Vital Signs: Last Vital Signs Temp 98.4 F 01/10/24 08:35 Pulse 72 01/10/24 08:35 BP 116/71 01/10/24 08:35 Pulse Ox 97 01/10/24 08:35 Oxygen Delivery Method Room Air 01/10/24 08:35 BMI result Body Mass Index 37.6 Tobacco/Smoking Status: Tobacco use Status Tobacco use date assessed 01/10/24 01/10/24 08:38 Patient Tobacco Use Status Never used Tobacco 01/10/24 08:29 e-Cigarette/Vaping Use Never Used 01/10/24 08:29 PHQ-9: PHQ-9 Score PHQ-9: Total score 6 01/10/24 09:06 Depression Screening Interpretation: Positive Depression Screening Follow-up: Other (Positive screening due to sleep-related questions and fatigue which are being evaluated. Patient denies depression.) Thrive Assessment: Date of Thrive Assessment Date Thrive assessed 01/10/24 01/10/24 08:38 Currently or been in a relationship where the following occur: no concerns reported Const Other: Constitutional: Alert, in no distress. Head: Normocephalic. Eyes: Pupils are equal, round and reactive to light. Extraocular muscles intact. Ear, Nose and Throat: Canals clear. TMs normal. Normal nasal mucosa. No nasal discharge. No oral lesions. Neck: Supple, Full range of motion. No lymphadenopathy. No palpable thyroid masses. Respiratory: Clear to auscultation. Cardiovascular: S1 S2 regular. No murmurs. No carotid bruits. Gastrointestinal: Abdomen soft, non-tender, non-distended. Normal bowel sounds. No palpable masses. Neurologic: No focal neurological deficits. Symmetric patellar reflexes. Moves all extremities spontaneously. Sensation intact bilaterally. Skin: Multiple skin tags on the neck and collarbone area. Musculoskeletal: Firm bump on the dorsum of the left wrist, nontender, no erythema or fluctuance Extremities: Warm and well perfused. No clubbing, cyanosis or edema. 3+ peripheral pulses bilaterally. Psychiatric: Normal mood and affect Assessment and Plan Assessment & Plan (1) Routine physical examination: Code(s): Z00.00 - Encounter for general adult medical examination without abnormal findings Plan: Patient is seen today for a routine physical. As part of this visit we reviewed the following issues, which are considered and essential part of preventative health in this age group: - Breast Cancer screening - Annual Logistics System Engineer exam - Blood pressure screening annually - Cholesterol screening - Nutritional and exercise counseling - Screening for depression - Education about skin cancer - Recommendations about immunizations - Recommendation of an eye exam - Screening for substance abuse (2) Ganglion cyst of dorsum of left wrist: Code(s): M67.432 - Ganglion, left wrist Plan: Referred to hand surgeon. (3) Fatigue: Code(s): R53.83 - Other fatigue Qualifiers: Fatigue type: chronic, unspecified Qualified Code(s): R53.82 - Chronic fatigue, unspecified Plan: Check labs and sleep study. (4) Hypothyroidism (acquired): Code(s): E03.9 - Hypothyroidism, unspecified Plan: Followed by endocrinology. Refilled levothyroxine. Orders: Orders Lipid Panel Today F41.9 - Anxiety disorder, unspecified, R53.83 - Other fatigue, Z13.6 - Encounter for screening for cardiovascular disorders Comprehensive Met. Panel Today F41.9 - Anxiety disorder, unspecified, R53.83 - Other fatigue, Z13.6 - Encounter for screening for cardiovascular disorders RT home sleep study Today F41.9 - Anxiety disorder, unspecified, R53.83 - Other fatigue, Z13.6 - Encounter for screening for cardiovascular disorders Complete Blood Count no Diff Today F41.9 - Anxiety disorder, unspecified, R53.83 - Other fatigue, Z13.6 - Encounter for screening for cardiovascular disorders Referrals Dermatology Referral F41.9 - Anxiety disorder, unspecified, L91.8 - Other hypertrophic disorders of the skin, R53.83 - Other fatigue, Z13.6 - Encounter for screening for cardiovascular disorders Hand Surgery Referral F41.9 - Anxiety disorder, unspecified, M67.432 - Ganglion, left wrist, R53.83 - Other fatigue, Z13.6 - Encounter for screening for cardiovascular disorders Medications: Refilled levothyroxine (Synthroid) 175 mcg PO DAILY 90 tabs 3RF Coding Level of Care Code Est Pt Prev Care 40-64y(75558) Diagnoses Routine physical examination Z00.00 Ganglion cyst of dorsum of left wrist M67.432 Chronic fatigue R53.82 Fatigue type: chronic, unspecified Hypothyroidism (acquired) E03.9 Additional Codes JESUS ALBERTO-7 Assessment Billing - JESUS ALBERTO-7 Assessment Tool: JESUS ALBERTO-7 Assessment 63885 ([id number])
[2024-01-10 08:35] VITALS: BP 116/71; PULSE 72; TEMP 36.9; O2SAT 97; BMI 37.6
== END 2024-01-10 11:18 | disposition home or self-care (01) ==
PROVIDERS: PCP Hospitalist; Visit Provider Physician Assistant Medical
DX: Z00.00 Encounter for general adult medical examination without abnormal findings (principal); M67.432 Ganglion, left wrist; R53.82 Chronic fatigue, unspecified; E03.9 Hypothyroidism, unspecified
CPT/HCPCS: 99396

== ENCOUNTER 2024-02-28 14:57 | Outpatient (AMB) | payer OTHER, SELFPAY ==
--- NOTE | 2024-02-28 15:11 | A.OFFPC_ITS ---
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 Required: No Is last menstrual period known: No Allergies morphine [MORPHINE] Allergy (Severe, Verified 01/10/24 08:30) CHEST PRESSURE AND TIGHTNESS aspirin [ASPIRIN] Allergy (Intermediate, Verified 01/10/24 08:30) RASH, redness and itching codeine [CODEINE] Allergy (Intermediate, Verified 01/10/24 08:30) RASH, redness and itching ibuprofen [From Motrin] Allergy (Intermediate, Verified 01/10/24 08:30) Hives shellfish derived [SHELLFISH DERIVED] Allergy (Intermediate, Verified 01/10/24 08:30) RED/ITCH STERI-STRIP ADHESIVE Allergy (Intermediate, Uncoded 01/10/24 08:30) RASH Tobacco use date assessed: 01/10/24 Dental Screening Dental Screen Date: 01/10/24 HPI HPI Comments History of Present Illness Details This is a 39-year-old female with a past medical history of migraines, hypothyroidism, anxiety, GERD and ovarian cyst presenting for a rash. Patient endorses a rash on both sides of the groin that is itching and burning. It started after she had her hysteroscopy surgery on 02/10/2024. She tried a topical spray for itching from the pharmacy, but it was ineffective. No fevers or chills. ROS: Constitutional: No fevers or chills. Skin: No discharge or skin breakdown. See HPI Physical exam: Skin: Patient declined cone machine feeder. Moderately erythema in the inguinal folds, very small linear shallow fissure at the top of he left inguinal fold [facility] Medical History (Updated 01/10/24 @ 09:20 by JEOVANNY Casey) Ganglion cyst of dorsum of left wrist History of hypothyroidism Surgical History History of thyroidectomy History of appendectomy History of cholecystectomy History of section Family History Father Diabetes Hyperlipidemia Mother Diabetes Skin cancer Hyperlipidemia Asthma Brother Brain cancer Social History Household Members: Spouse and Children Housing: House Alcohol intake: never Patient Tobacco Use Status: Never used Tobacco e-Cigarette/Vaping Use: Never Used Second Hand Smoke Exposure: No service: No Current occupational status: employed 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 Ortega Alaniz, Gianna Carrion, Jeff Cardoso and colleagues, with an educational ismael from [employer]. Physical exam (Primary Care) Vital Signs: Last Vital Signs Pulse 87 02/28/24 15:15 Resp 16 02/28/24 15:15 BP 100/86 02/28/24 15:15 Pulse Ox 97 02/28/24 15:15 Oxygen Delivery Method Room Air 02/28/24 15:15 BMI result Body Mass Index 36.5 Tobacco/Smoking Status: Tobacco use Status Tobacco use date assessed 01/10/24 02/28/24 15:12 Patient Tobacco Use Status Never used Tobacco 02/28/24 15:12 e-Cigarette/Vaping Use Never Used 02/28/24 15:12 Thrive Assessment: Date of Thrive Assessment Date Thrive assessed 01/10/24 02/28/24 15:12 Assessment and Plan Assessment & Plan (1) Intertrigo: Code(s): L30.4 - Erythema intertrigo Plan Wear breathable clothing. Keep the area clean and dry. Prescribed ketoconazole topical twice daily. Call if symptoms do not resolve or return after treatment. Medications: New ketoconazole 2% 1 appl topical BID 14 days 30 grams 0RF Coding Level of Care Code Est Pt Level 3 (77896) Diagnoses Intertrigo L30.4
[2024-02-28 15:15] VITALS: BP 100/86; PULSE 87; RESP 16; O2SAT 97; BMI 36.5
== END 2024-02-28 16:48 | disposition home or self-care (01) ==
PROVIDERS: PCP Physician Assistant Medical; Visit Provider Physician Assistant Medical
DX: L30.4 Erythema intertrigo (principal)
CPT/HCPCS: 99213

== ENCOUNTER 2024-04-10 10:46 | Outpatient (AMB) | payer OTHER, SELFPAY ==
--- OUTSIDE RECORDS SUMMARY | 2024-04-10 10:48 | XMS_ITS | Continuity of Care Document ---
Author Organization [facility] Address [address] [place] [address], [address] [place] [address]- Care Team Providers Care Sales And Marketing Professional Name Role Phone Kaylah SNOW, Mariposa Cassidy Primary Care Physician Encounter [facility] [id number] Date(s): 09/29/23 - 10/29/23 [facility] [address] [place], [place] [address] Attending Physician: Farzad Resendez Admitting Physician: Farzad Resendez Referring Physician: Farzad Resendez Allergies, Adverse Reactions, Alerts Substance Reaction Severity Status codeine red itchy Active aspirin red itchy Active morphine Active shellfish throat swells Active Adhesive Bandage 1 Active 1rash Immunizations Given and Recorded Vaccine Date Status Refusal Reason tetanus/diphtheria/pertussis, acel(Tdap) 12/26/21 Given tetanus/diphtheria/pertussis, acel(Tdap) 1 08/02/12 Given 1Admin Note: VIS given, 08/11/2011 Medications levothyroxine 150 mcg (0.15 mg) oral tablet 1 tablet = 150 mcg, By Mouth, Daily, # 30 tablet, 2 Refills, Maintenance, 09/17/23 15:00:00 EST, Tablet, [id number], Partial fill upon patient request if the prescription is for a schedule II opioid drug., 158, cm, 04/10/22 11:14:00 E... Start Date: 09/17/23 Status: Ordered Problem List Condition Confirmation Course Effective Dates Status H ealth Status Informant Abnormal uterine bleeding Confirmed Active Asthma Confirmed Active Left ovarian cyst Confirmed Active History of depression Confirmed Active Hypothyroidism Confirmed Active Obese class I Confirmed Active PCOS - Polycystic ovarian syndrome Confirmed Active PCOS (polycystic ovarian syndrome) Confirmed Active Last Pap smear 08/26/21 negative with negative HPV Confirmed Active Social History Social History Type Response Smoking Status Never (less than 100 in lifetime) entered on: 08/25/21 Sex Female Laboratory * Giovanny , Olga: PERFORM Event Display: Laboratory Results Scanned Authored Date: [id number] Radiology * Fide Houser: PERFORM Event Display: Radiology Results Scanned Authored Date: * Fide Houser: PERFORM Event Display: Radiology Results Scanned Authored Date: * Fide Houser: PERFORM Event Display: Radiology Results Scanned Authored Date: [id number] Note * Em Reid: PERFORM, SIGN, VERIFY Event Display: Patient Education/Instruction Authored Date: [id number] [facility] PLASTICS TECHNICIAN Clinical Summary Person Information Name JONATAN MANRIQUEZ Age 27 Years 1985 12:00 AM PCP Dong Mohan MD PCP Reason for Visit: Allergy Info: shellfish; aspirin; codeine Vital Signs Height Weight BMI Blood Pressure / Temperature Pulse Rate Respiratory Rate 02 Sat Mode of Delivery / Medication Information Docusate (Colace sodium 100 mg oral capsule) 1 capsule, Oral, twice a day, As Needed, for constipation, Refills: 2 Durable Medical Equipment (Freestyle Lite Lancets) , See Instructions, 1 box = 100 lancets to test QID, Refills: 3 Durable Medical Equipment (Freestyle Lite Test Strips) , See Instructions, 1 bottle = 100 strips To test QID, Refills: 3 Miscellaneous Rx (Advair inhaler (PRN)) , Refills: 0 Multivitamin, ( Multivitamins) , Oral, Daily, Refills: 0 Polyethylene Glycol 3350 (MiraLax oral powder for reconstitution) 17 Gm, Oral, Daily, As Needed, Constipation, Refills: 0 Problem List Date Problem 01/06/12 11/26/10 Infertility, Female, Associated with Anovulation 03/04/11 PCOS - Polycystic ovarian syndrome 03/26/12 Suprapubic abdominal pain 05/27/12 Gestational diabetes 05/27/12 Asthma 05/27/12 Hypothyroid in , antepartum If the following labs have been performed in the last year, the most recent result is displayed below. Diagnostic Results Lab Result Value Date Lead Hemoglobin A1C LDL HDL Triglycerides Total Cholesterol Disclaimer: The information provided is of a general nature and is intended to be used in conjunction with the recommendations and advice of your health care practitioner. Every effort has been made to ensure that the information provided is accurate and complete at the time it is provided to you however, as your needs change, or, as new information becomes available, different or additional instructions may be required. If you have questions, please consult with your primary care provider or pharmacist, as appropriate. This information is not intended to serve as substitution for assessment and evaluation by a qualified health care provider. If you do not have a primary care provider, you may find a [facility] provider by calling [facility] [employer] at [phone]. Patient Education Information Follow-up Details: Patient Education Material: Please follow instructions discussed with your provider during this visit as well as any education documents you were given today. Please follow instructions discussed with your provider during this visit as well as any education documents you were given today. * Nasima Bradley: PERFORM, SIGN, VERIFY Event Display: Patient Education/Instruction Authored Date: [id number] [facility] PLASTICS TECHNICIAN Clinical Summary Person Information Name JONATAN MANRIQUEZ Age 27 Years 1985 12:00 AM PCP Dong Mohan MD PCP Reason for Visit: Allergy Info: shellfish; aspirin; codeine Vital Signs Height Weight BMI Blood Pressure / Temperature Pulse Rate Respiratory Rate 02 Sat Mode of Delivery / Medication Information Durable Medical Equipment (Freestyle Lite Lancets) , See Instructions, 1 box = 100 lancets to test QID, Refills: 3 Durable Medical Equipment (Freestyle Lite Test Strips) , See Instructions, 1 bottle = 100 strips To test QID, Refills: 3 Miscellaneous Rx (Advair inhaler (PRN)) , Refills: 0 Multivitamin, ( Multivitamins) , Oral, Daily, Refills: 0 Problem List Date Problem 01/06/12 11/26/10 Infertility, Female, Associated with Anovulation 03/04/11 PCOS - Polycystic ovarian syndrome 03/26/12 Suprapubic abdominal pain 05/27/12 Gestational diabetes 05/27/12 Asthma 05/27/12 Hypothyroid in , antepartum If the following labs have been performed in the last year, the most recent result is displayed below. Diagnostic Results Lab Result Value Date Lead Hemoglobin A1C LDL HDL Triglycerides Total Cholesterol Disclaimer: The information provided is of a general nature and is intended to be used in conjunction with the recommendations and advice of your health care practitioner. Every effort has been made to ensure that the information provided is accurate and complete at the time it is provided to you however, as your needs change, or, as new information becomes available, different or additional instructions may be required. If you have questions, please consult with your primary care provider or pharmacist, as appropriate. This information is not intended to serve as substitution for assessment and evaluation by a qualified health care provider. If you do not have a primary care provider, you may find a [facility] provider by calling [facility] [employer] [facility] at [phone]. Patient Education Information Follow-up Details: Patient Education Material: Please follow instructions discussed with your provider during this visit as well as any education documents you were given today. Patient Care team information Care Team Personnel Name: Vidya Lobo RN Position: Sarita THOMAS RN Member Role: Primary Care Nurse Name: Joy Herron RN Position: LEEANNE RN Member Role: Primary Care Nurse Name: Mariposa Adrian NP Position: Reference Physician Member Role: PCP Address: Address: [address] [place] [address]- Care Team Related Persons Name: POLO MANRIQUEZ Address: home [address], [place] Name: MAGUI MANRIQUEZ Address: [address] Address: home [address] [place], [place] Name: ALCIDES WARNER Address: [address] [address]
--- OUTSIDE RECORDS SUMMARY | 2024-04-10 10:48 | XMS_ITS | Continuity of Care Document ---
Author Organization [facility] [employer] [facility] Address [address] [place] [address], [address] [place] [address]- Care Team Providers Care Voltage Regulator Assembler Name Role Phone Kaylah SNOW, Mariposa Cassidy Primary Care Phys[id number] Date(s[facility] 12/18/21 - 01/17/22 [facility] [address] [facility], [address] [place] [address]- Allergies, Adverse Reactions, Alerts Substance Reaction Severity Status codeine red itchy Active aspirin red itchy Active morphine Active shellfish throat swells Active Adhesive Bandage 1 Active 1rash Immunizations Given and Recorded Vaccine Date Status Refusal Reason tetanus/diphtheria/pertussis, acel(Tdap) 12/26/21 Given tetanus/diphtheria/pertussis, acel(Tdap) 1 08/02/12 Given 1Admin Note: VIS given, 08/11/2011 Medications aspirin 81 mg oral delayed release tablet 81 mg, 1, tablet, By Mouth, Daily, # 30 tablet, Refills 0, Maintenance, 08/25/21 14:25:00 EST, Partial fill upon patient request if the prescription is for a schedule II opioid drug. Start Date: 08/25/21 Status: Ordered aspirin 81 mg oral tablet, chewable 162 mg, 2, tablet, Chew, Daily, # 60 tablet, Refills 8, Tot. Refills 8, Maintenance, 08/26/21 11:37:00 EST, Route to Pharmacy Electronically, [id number], Partial fill upon patient request if the prescription is for a schedule II opioi... Start Date: 08/26/21 Status: Ordered bisacodyl 10 mg rectal suppository 1 supp = 10 mg, Rectally, Daily, PRN for constipation, # 10 supp, 0 Refills, Maintenance, 08/10/21 18:57:00 EST, Suppository, [facility]/pharmacy #[id number], Partial fill upon patient request if the prescriptionis for a schedule II opioid drug., 158, cm, ... Start Date: 08/10/21 Status: Ordered Docusate PRN as needed for constipation, 0 Refills, Maintenance, 08/25/21 14:26:00 EST, Partial fill upon patient request if the prescription is for a schedule II opioid drug. Start Date: 08/25/21 Status: Ordered doxylamine-pyridoxine 10 mg-10 mg oral delayed release tablet 2 tablet, By Mouth, Daily at bedtime, # 60 tablet, 1 Refills, Maintenance, 08/26/21 11:31:00 EST, CR Tablet, [facility][id number], Partial fill upon patient request if the prescription is for a schedule II opioid drug., 2 tablet By Mouth Daily... Start Date: 08/26/21 Status: Ordered folic acid 0.4 mg oral tablet 1 tablet = 0.4 mg, By Mouth, Daily, # 100 tablet, 3 Refills, Maintenance, 06/26/21 16:54:00 EST, Tablet, [facility] #[id number], Partial fill upon patient request if the prescription is for a schedule II opioid drug., 158, cm, 06/24/21 9:16:00 ES... Start Date: 06/26/21 Status: Ordered levothyroxine 175 mcg (0.175 mg) oral tablet 1 tablet = 175 mcg, By Mouth, Daily, # 30 tablet, 0 Refills, Maintenance, 10/16/21 23:50:00 EDT, Tablet, Partial fill upon patient request if the prescription is for a schedule II opioid drug. Start Date: 10/16/21 Status: Ordered MiraLax = 17 Gm, By Mouth, Daily, PRN Constipation, 0 Refills, Maintenance, 08/25/21 14:26:00 EST, Partial fill upon patient request if the prescription is for a schedule II opioid drug. Start Date: 08/25/21 Status: Ordered Multivitamins with Vitamin B Complex, Vitamin C, Minerals and L- Methylfolate oral capsule 1 capsule, By Mouth, Daily, 0 Refills, Maintenance, 11/20/21 13:05:00 EDT, Partial fill upon patient request if the prescription is for a schedule II opioid drug. Start Date: 11/20/21 Status: Ordered ProAir HFA 90 mcg/inh inhalation aerosol with adapter 2, puffs, Inhalation, 4 times a day, PRN, Refills 0, Maintenance, 08/19/17 14:09:51 Start Date: 08/19/17 Status: Ordered Reglan 5 mg oral tablet 1 tablet = 5 mg, By Mouth, Every 6 hours, PRN Nausea & Vomiting, # 90 tablet, 1 Refills, Maintenance, 08/10/21 18:58:00 EST, Tablet, [facility]/pharmacy #[id number], Partial fill upon patient request if the prescription is for a schedule II opioid drug., 158, cm,... Start Date: 08/10/21 Status: Ordered Zofran 8 mg oral tablet 1 tablet = 8 mg, By Mouth, 2 times a day, # 20 tablet, 0 Refills, Acute 08/27/22 11:32:00 EST, 08/26/21 11:31:00 EST, Tablet, [facility][id number], Partial fill upon patient request if the prescription is for a schedule II opioid drug., 158, cm... Start Date: 08/26/21 Stop Date: 08/27/22 Status: Ordered Problem List Condition Effective Dates Status Health Status Inform ant Asthma(Confirmed) Active Chronic endometritis(Confirmed) Active History of depression(Confirmed) Active Hyperthyroidism(Confirmed) Active Hypothyroidism(Confirmed) Active Infertility, Female, Associa patrice with Anovulation(Confirmed) Active Menorrhagia(Confirmed) Active Obese class II(Confirmed) Active PCOS - Polycystic ovarian syndrome(Confirmed) Active PCOS (polycystic ovarian syndrome)(Confirmed) Active Suprapubic abdominal pain(Confirmed) Active Social History Social History Type Response Smoking Status Never (less than 100 in lifetime) entered on: 08/25/21 Sex
--- OUTSIDE RECORDS SUMMARY | 2024-04-10 10:48 | XMS_ITS | Continuity of Care Document ---
Author Organization [facility] Address Unknown Care Team Providers Care Senior Executive Compensation Analyst Name Role Phone Kaylah SNOW, Mariposa Cassidy Primary Care Physician [place] [facility] Date(s): 06/11/21 - 07/11/21 [facility] Allergies, Adverse Reactions, Alerts Substance Reaction Severity Status codeine red itchy Active aspirin red itchy Active morphine Active shellfish throat swells Active Adhesive Bandage 1 Active 1rash Immunizations Given and Recorded Vaccine Date Status Refusal Reason tetanus/diphtheria/pertussis, acel(Tdap) 1 08/02/12 Given 1Admin Note: VIS given, 08/11/2011 Medications 22g 1 1/2 inch needle 22g 1 1/2 inch needle, See Instructions, # 30 each, Refills 5, Tot. Refills 5, Maintenance, use to give IM progesterone, 03/18/21 9:21:00 EDT, Compound, 158, cm, 12/06/20 8:28:00 EDT, Height, 87.5, kg, 05/27/20 2:26:00 EST, Dry Weight Start Date: 03/18/21 Status: Ordered 3 cc syringe with 18g 1 1/2 needles 3 cc syringe with 18g 1 1/2 needles, See Instructions, # 30 each, Refills 5, Tot. Refills 5, Maintenance, use to draw up IM Progesterone, 06/09/21 15:40:00 EST, Compound, 158, cm, 12/06/20 8:28:00 EDT, Height, 87.5, kg, 05/27/20 2:26:00 EST, Dry Weight Start Date: 06/09/21 Status: Ordered Endometrin 100 mg vaginal insert See Instructions, Vaginally 3 times a day, # 90 each, 5 Refills, Maintenance, 06/10/21 11:28:00 EST, [facility], Partial fill upon patient request if the prescription is for a schedule IIopioid drug., 158, cm, 12/06/20 8:28:00 EDT, Height... Start Date: 06/10/21 Status: Ordered estradiol 0.1 mg/24 hours twice weekly transdermal film, extended release See Instructions, apply 1-4 patches and change QOD. Follow calendar/protocol., # 32 each, 5 Refills, Maintenance, 06/09/21 15:36:00 EST, [facility], 158, cm, 12/06/20 8:28:00 EDT, Height, 87.5, kg, 05/27/20 2:26:00 EST, Dry Weight Start Date: 06/09/21 Status: Ordered Estradiol Patch 0.1 mg/24 hours twice weekly transdermal film, extended release See Instructions, 1 patch Topically, # 8 patch, 5 Refills, Maintenance, 06/09/21 18:36:00 EST, [facility][id number], Partial fill upon patient request if the prescription is for a schedule II opioid drug., 1 patch Topically, 158, cm, 12/06/20 8... Start Date: 06/09/21 Status: Ordered folic acid 0.4 mg oral tablet 1 tablet = 0.4 mg, By Mouth, Daily, # 100 tablet, 3 Refills, Maintenance, 06/26/21 16:54:00 EST, Tablet, [id number], Partial fill upon patient request if the prescription is for a schedule II opioid drug., 158, cm, 06/24/21 9:16:00 ES... Start Date: 06/26/21 Status: Ordered levothyroxine 150 mcg (0.15 mg) oral tablet 1 tablet = 150 mcg, By Mouth, Daily, # 60 tablet, 1 Refills, Maintenance, 02/17/21 13:28:00 EDT, Tablet, [facility][id number], Partial fill upon patient request if the prescription is for a schedule II opioid drug., 158, cm, 12/06/20 8:28:00 ED... Start Date: 02/17/21 Status: Ordered metFORMIN 500 mg oral tablet, extended release 3 tablet = 1,500 mg, By Mouth, Daily, with evening meal, # 90 tablet, 11 Refills, Maintenance, 01/31/20 11:39:00 EDT, [facility] #[id number], 158, cm, 01/29/20 13:44:00 EDT, Height, 88.2, kg, 01/09/19 16:14:00 EDT, Dry Weight Start Date: 01/31/20 Stop Date: 01/25/21 Status: Ordered methylPREDNISolone 16 mg oral tablet = 16 mg, By Mouth, Daily, Take for 4 days when instructed with the last dose being the day of frozen embryo transfer, # 4 tablet, 0 Refills, Maintenance, 06/09/21 15:38:00 EST, [facility], Partial fill upon patient request if the prescript... Start Date: 06/09/21 Status: Ordered omeprazole 20 mg oral enteric coated capsule 1 capsule = 20 mg, By Mouth, Daily, # 30 capsule, 0 Refills, Maintenance, 04/20/14 8:08:03, EC Capsule Start Date: 04/20/14 Status: Ordered ProAir HFA 90 mcg/inh inhalation aerosol with adapter 2, puffs, Inhalation, 4 times a day, PRN, Refills 0, Maintenance, 08/19/17 14:09:51 Start Date: 08/19/17 Status: Ordered progesterone 50 mg/mL intramuscular solution See Instructions, 100mg/ml 2 ml (sesame oil) Intramuscular Daily.Give in divided dose., # 6 each, 5Refills, Maintenance, 07/09/21 10:58:00 EST, [facility], Partial fill upon patient request if the prescription is for a schedule II opioid... Start Date: 07/09/21 Status: Ordered Provera 10 mg oral tablet 10 mg, 1, tablet, By Mouth, Daily, # 10 tablet, Refills 0, Tot. Refills 0, Maintenance, 05/26/21 11:44:00 EST, Route to Pharmacy Electronically, [id number], Partial fill upon patientrequest if the prescription is for a schedule II op... Start Date: 05/26/21 Stop Date: 06/05/21 Status: Ordered Provera 10 mg oral tablet 10 mg, 1, tablet, By Mouth, Daily, # 7 tablet, Refills 0, Tot. Refills 0, Maintenance, 02/17/21 13:23:00 EDT, Route to Pharmacy Electronically, [id number], Partial fill upon patient request if the prescription is for a schedule II opi... Start Date: 02/17/21 Stop Date: 02/24/21 Status: Ordered Valium 5 mg oral tablet 5 mg, 1, tablet, By Mouth, banquet server on call to Procedure, May need to repeat!, # 2 tablet, Refills 0, Tot. Refills 0, Maintenance, 06/25/21 10:29:00 EST, Route to Pharmacy Electronically, [id number], Partial fill upon patient request if the pr... Start Date: 06/25/21 Status: Ordered Vivelle-Dot 0.1 mg/24 hours twice weekly transdermal film, extended release See Instructions, Place 1 patch on day 1-4 then 2 patches on day 5-10 and then 4 patches on day 11-14 changing patches QOD., # 8 patch, 1 Refills, Maintenance, 06/10/21 14:42:00 EST, [facility] #[id number], Partial fill upon patient request if t... Start Date: 06/10/21 Status: Ordered Problem List Condition Effective Dates Status Health Status Inform ant Asthma(Confirmed) Active Chronic endometritis(Confirmed) Active Hypothyroidism(Confirmed) Active Infertility, Female, Associa patrice with Anovulation(Confirmed) Active Menorrhagia(Confirmed) Active Obese class II(Confirmed) Active PCOS - Polycystic ovarian syndrome(Confirmed) Active Suprapubic abdominal pain(Confirmed) Active Social History Social History Type Response Smoking Status Never smoker; Tobacc o user in household: No entered on: 12/24/15 Sex
--- OUTSIDE RECORDS SUMMARY | 2024-04-10 10:48 | XMS_ITS | Continuity of Care Document ---
Author Organization [facility] Address [address] [place] [address], [address] [place] [address]- Care Team Providers Care Alcohol And Drug Counselor Name Role Phone Kaylah SNOW, Mariposa Cassidy Primary Care Physician Encounter [facility] [place] Date(s): 11/18/21 - 12/18/21 [facility] [address] [place] [address], [address] [place] [address]- Allergies, Adverse Reactions, Alerts Substance Reaction Severity [...] Dry Weight Start Date: 06/09/21 Status: Ordered aspirin 81 mg oral delayed release tablet [...] 08/26/21 11:37:00 EST, Route to Pharmacy Electronically, [facility] #[id number], Partial fill upon patient request if the prescription is for a schedule II opioi... Start Date: 08/26/21 Status: Ordered bisacodyl 10 mg rectal suppository 1 supp = 10 mg, Rectally, Daily, PRN for constipation, # 10 supp, 0 Refills, Maintenance, 08/10/21 18:57:00 EST, Suppository, [facility]/pharmacy #[id number], Partial fill upon patient request if the prescriptionis for a schedule II opioid drug., 158, cm, ... Start Date: 08/10/21 Status: Ordered clotrimazole 1% topical cream 1 application, Topically, 2 times a day, # 15 Gm, 0 Refills, Maintenance, 10/03/21 9:22:00 EDT, Cream, [facility]/pharmacy #[id number], Partial fill upon patient request if the prescription is for a schedule II opioid drug., 1 application Topically 2 times a day,... Start Date: 10/03/21 Status: Ordered cyclobenzaprine 10 mg oral tablet 10 mg, 1, tablet, By Mouth, 3 times a day, PRN, # 42 tablet, Refills 0, Tot. Refills 0, Maintenance, Spasm for spasm, 10/21/21 13:22:00 EDT, Route to Pharmacy Electronically, [facility] #[id number], Partial fill upon patient request if the pres... Start Date: 10/21/21 Status: Ordered Docusate PRN as needed for constipation, 0 Refills, Maintenance, 08/25/21 14:26:00 EST, Partial fill upon patient request if the prescription is for a schedule II opioid drug. Start Date: 08/25/21 Status: Ordered doxylamine-pyridoxine 10 mg-10 mg oral delayed release tablet 2 tablet, By Mouth, Daily at bedtime, # 60 tablet, 1 Refills, Maintenance, 08/26/21 11:31:00 EST, CR Tablet, [facility] #[id number], Partial fill upon patient request if the prescription is for a schedule II opioid drug., 2 tablet By Mouth Daily... Start Date: 08/26/21 Status: Ordered estradiol 0.1 mg/24 hours twice weekly transdermal film, extended release See Instructions, apply 1-4 patches and change QOD. Follow calendar/protocol., # 32 each, 5 Refills, Maintenance, 06/09/21 15:36:00 EST, [facility], 158, cm, 12/06/20 8:28:00 EDT, Height, 87.5, kg, 05/27/20 2:26:00 EST, Dry Weight Start Date: 06/09/21 Status: Ordered Estradiol Patch 2 patches, Topically, Every other day, 0 Refills, Maintenance, 08/25/21 14:25:00 EST, Partial fill upon patient request if the prescription is for a schedule II opioid drug. Start Date: 08/25/21 Status: Ordered Estradiol Patch 0.1 mg/24 hours twice weekly transdermal film, extended release See Instructions, 1 patch Topically, # 8 patch, 5 Refills, Maintenance, 06/09/21 18:36:00 EST, [facility] #[id number], Partial fill upon patient request if the prescription is for a schedule II opioid drug., 1 patch Topically, 158, cm, 12/06/20 8... Start Date: 06/09/21 Status: Ordered folic acid 0.4 mg oral tablet 1 tablet = 0.4 mg, By Mouth, Daily, # 100 tablet, 3 Refills, Maintenance, 06/26/21 16:54:00 EST, Tablet, [facility] #[id number], Partial fill upon patient request if the [...] opioid drug. Start Date: 10/16/21 Status: Ordered methylPREDNISolone 16 mg oral tablet = 16 mg, By Mouth, Daily, Take for 4 days when instructed with the last dose being the day of frozen embryo transfer, # 4 tablet, 0 Refills, Maintenance, 06/09/21 15:38:00 EST, [facility], Partial fill upon patient request if the prescript... Start Date: 06/09/21 Status: Ordered MiraLax = 17 Gm, By [...] 5Refills, Maintenance, 07/09/21 10:58:00 EST, [facility], Partial fill upon patient request if the prescription is for a schedule II opioid... Start Date: 07/09/21 Status: Ordered Reglan 5 mg oral tablet 1 tablet = 5 mg, By Mouth, Every 6 hours, PRN Nausea & Vomiting, # 90 tablet, 1 Refills, Maintenance, 08/10/21 18:58:00 EST, Tablet, [facility]/pharmacy #[id number], Partial fill upon patient request if the prescription is for a schedule II opioid drug., 158, cm,... Start Date: 08/10/21 Status: Ordered Vivelle-Dot 0.1 mg/24 hours twice weekly transdermal film, extended release See Instructions, Place 1 patch on day 1-4 then 2 patches on day 5-10 and then 4 patches on day 11-14 changing patches QOD., # 8 patch, 1 Refills, Maintenance, 06/10/21 14:42:00 EST, [facility] #[id number], Partial fill upon patient request if t... Start Date: 06/10/21 Status: Ordered Zofran 4 mg oral tablet 1 tablet = 4 mg, By Mouth, Every 8 hours, PRN as needed for nausea/vomiting, # 20 tablet, 0 Refills, Maintenance, 08/05/21 17:23:00 EST, Tablet, [facility] #[id number], Partial fill upon patientrequest if the prescription is for a schedule II op... Start Date: 08/05/21 Status: Ordered Zofran 8 mg oral tablet 1 tablet = 8 mg, By Mouth, 2 times a day, # 20 tablet, 0 Refills, Acute 08/27/22 11:32:00 EST, 08/26/21 11:31:00 EST, Tablet, [facility] #[id number], Partial fill upon patient request if the [...]
--- OUTSIDE RECORDS SUMMARY | 2024-04-10 10:49 | XMS_ITS | Continuity of Care Document ---
Author Organization [facility] Address Unknown Care Team Providers Care Berry Grower Name Role Phone Kaylah SNOW, Mariposa Cassidy Primary Care Physician Encounter [facility] [place] [facility] R [id number] Date(s): 08/21/21 - 08/28/21 [facility] Attending Physician: Not on Staff, Attending MD Referring Physician: Lee Ann Stephens MD Allergies, Adverse Reactions, Alerts Substance Reaction Severity Status codeine red itchy Active aspirin red itchy Active Adhesive Bandage 1 Active morphine Active shellfish throat swells Active 1rash Immunizations Given and Recorded Vaccine [...] 08/26/21 11:37:00 EST, Route to Pharmacy Electronically, [facility] #[id number], Partial fill upon patient request if the prescription is for a schedule II opioi... Start Date: 08/26/21 Status: Ordered bisacodyl 10 mg rectal suppository 1 supp = 10 mg, Rectally, Daily, PRN for constipation, # 10 supp, 0 Refills, Maintenance, 08/10/21 18:57:00 EST, Suppository, [facility]/pharmacy #[id number], Partial fill upon patient request [...] Refills, Maintenance, 08/26/21 11:31:00 EST, CR Tablet, [facility] #[id number], Partial fill upon patient request if the prescription is for a schedule II opioid drug., 2 tablet By Mouth Daily... Start Date: 08/26/21 Status: Ordered Endometrin 100 mg vaginal insert [...] patch, 5 Refills, Maintenance, 06/09/21 18:36:00 EST, [facility] #[id number], Partial fill upon patient request if the prescription is for a schedule II opioid drug., 1 patch Topically, 158, cm, 12/06/20 8... Start Date: 06/09/21 Status: Ordered folic acid 0.4 mg oral tablet 1 tablet = 0.4 mg, By Mouth, Daily, # 100 tablet, 3 Refills, Maintenance, 06/26/21 16:54:00 EST, Tablet, [facility] #[id number], Partial fill upon patient request if the prescription is for a schedule II opioid drug., 158, cm, 06/24/21 9:16:00 ES... Start Date: 06/26/21 Status: Ordered levothyroxine 150 mcg (0.15 mg) oral tablet 1 tablet = 150 mcg, By Mouth, Daily, # 60 tablet, 1 Refills, Maintenance, 02/17/21 13:28:00 EDT, Tablet, [facility] #[id number], Partial fill upon patient request if the prescription is for a schedule II opioid drug., 158, cm, 12/06/20 8:28:00 ED... Start Date: 02/17/21 Status: Ordered methylPREDNISolone 16 mg oral tablet [...] opioid drug. Start Date: 08/25/21 Status: Ordered ProAir HFA 90 mcg/inh inhalation aerosol with adapter 2, puffs, Inhalation, 4 times a day, PRN, Refills 0, Maintenance, 08/19/17 14:09:51 Start Date: 08/19/17 Status: Ordered progesterone 50 mg/mL intramuscular solution See Instructions, 100mg/ml 2 ml (sesame oil) Intramuscular Daily.Give in divided dose., # 6 each, 5Refills, Maintenance, 07/09/21 10:58:00 EST, [facility], Partial fill upon patient request if the prescription is for a schedule II opioid... Start Date: 07/09/21 Status: Ordered Reglan 5 mg oral tablet 1 tablet = 5 mg, By Mouth, Every 6 hours, PRN Nausea & Vomiting, # 90 tablet, 1 Refills, Maintenance, 08/10/21 18:58:00 EST, Tablet, [facility]/pharmacy #[id number], Partial fill upon patient request if the prescription is for a schedule II opioid drug., 158, cm,... Start Date: 08/10/21 Status: Ordered triamcinolone 0.025% topical ointment 1 application, Topically, 2 times a day, for 14 days, # 15 Gm, 0 Refills, Acute 09/09/21 11:35:00 EST, 08/26/21 11:35:00 EST, Ointment, [facility] #[id number], Partial fill upon patient request if the prescription is for a schedule II opioid drug... Start Date: 08/26/21 Stop Date: 09/09/21 Status: Ordered Vivelle-Dot 0.1 mg/24 hours twice weekly transdermal film, extended release See Instructions, Place 1 patch on day 1-4 then 2 patches on day 5-10 and then 4 patches on day 11-14 changing patches QOD., # 8 patch, 1 Refills, Maintenance, 06/10/21 14:42:00 EST, [facility] #[id number], Partial fill upon patient request if t... Start Date: 06/10/21 Status: Ordered Zofran 4 mg oral tablet 1 tablet = 4 mg, By Mouth, Every 8 hours, PRN as needed for nausea/vomiting, # 20 tablet, 0 Refills, Maintenance, 08/05/21 17:23:00 EST, Tablet, [facility] #[id number], Partial fill upon patientrequest if the prescription is for a schedule II op... Start Date: 08/05/21 Status: Ordered Zofran 8 mg oral tablet 1 tablet = 8 mg, By Mouth, 2 times a day, # 20 tablet, 0 Refills, Acute 08/27/22 11:32:00 EST, 08/26/21 11:31:00 EST, Tablet, [facility] #[id number], Partial fill upon patient request if the [...]
--- OUTSIDE RECORDS SUMMARY | 2024-04-10 10:49 | XMS_ITS | Continuity of Care Document ---
Author Organization [facility] [place] [employer] Address [address] [place] [address], [address] [place] [address]- Care Team Providers Care Datapower Consultant Name Role Phone Kaylah SNOW, Mariposa Cassidy [id number] [address], [address] [place] [address]- Allergies, Adverse Reactions, Alerts Substance Reaction Severity [...] 08/26/21 11:37:00 EST, Route to Pharmacy Electronically, [facility] #[id number], Partial fill upon patient request if the prescription is for a schedule II opioi... Start Date: 08/26/21 Status: Ordered bisacodyl 10 mg rectal suppository 1 supp = 10 mg, Rectally, Daily, PRN for constipation, # 10 supp, 0 Refills, Maintenance, 08/10/21 18:57:00 EST, Suppository, [facility]/pharmacy #[id number], Partial fill upon patient request if the prescriptionis for a schedule II opioid drug., 158, cm, ... Start Date: 08/10/21 Status: Ordered clotrimazole 1% topical cream 1 application, Topically, 2 times a day, # 15 Gm, 0 Refills, Maintenance, 10/03/21 9:22:00 EDT, Cream, [facility]/pharmacy #[id number], Partial fill upon patient request [...] 10/21/21 13:22:00 EDT, Route to Pharmacy Electronically, [facility] #[id number], Partial fill upon patient request if the [...] Refills, Maintenance, 08/26/21 11:31:00 EST, CR Tablet, [facility] #[id number], Partial fill upon patient request if the [...] patch, 5 Refills, Maintenance, 06/09/21 18:36:00 EST, [facility] #[id number], Partial fill upon patient request if the prescription is for a schedule II opioid drug., 1 patch Topically, 158, cm, 12/06/20 8... Start Date: 06/09/21 Status: Ordered folic acid 0.4 mg oral tablet 1 tablet = 0.4 mg, By Mouth, Daily, # 100 tablet, 3 Refills, Maintenance, 06/26/21 16:54:00 EST, Tablet, [facility] #[id number], Partial fill upon patient request if the [...] 5Refills, Maintenance, 07/09/21 10:58:00 EST, [facility], Partial fill upon patient request if the prescription is for a schedule II opioid... Start Date: 07/09/21 Status: Ordered Reglan 5 mg oral tablet 1 tablet = 5 mg, By Mouth, Every 6 hours, PRN Nausea & Vomiting, # 90 tablet, 1 Refills, Maintenance, 08/10/21 18:58:00 EST, Tablet, [facility]/pharmacy #[id number], Partial fill upon patient request if the [...] patch, 1 Refills, Maintenance, 06/10/21 14:42:00 EST, [facility] #[id number], Partial fill upon patient request if t... Start Date: 06/10/21 Status: Ordered Zofran 4 mg oral tablet 1 tablet = 4 mg, By Mouth, Every 8 hours, PRN as needed for nausea/vomiting, # 20 tablet, 0 Refills, Maintenance, 08/05/21 17:23:00 EST, Tablet, [facility] #[id number], Partial fill upon patientrequest if the prescription is for a schedule II op... Start Date: 08/05/21 Status: Ordered Zofran 8 mg oral tablet 1 tablet = 8 mg, By Mouth, 2 times a day, # 20 tablet, 0 Refills, Acute 08/27/22 11:32:00 EST, 08/26/21 11:31:00 EST, Tablet, [facility] #[id number], Partial fill upon patient request if the [...]
--- OUTSIDE RECORDS SUMMARY | 2024-04-10 10:49 | XMS_ITS | Continuity of Care Document ---
Author Organization [facility] Address [address], 4t [address] [place] [address]- Care Team Providers Care Bay Stocker Name Role Phone Mason Rinaldi MD Primary Care Physician Encounter [facility] Date(s): 05/28/20 - 06/27/20 [facility] [address], 4[address] [place] [address]- Allergies, Adverse Reactions, Alerts Substance Reaction Severity [...] 5, Maintenance, use to give IM progesterone, 04/16/20 16:02:00 EDT, Compound, 158, cm, 03/21/20 8:43:00 EDT, Height, 88.2, kg, 01/09/19 16:14:00 EDT, Dry Weight Start Date: 04/16/20 Status: Ordered 3 cc syringe with 18g 1 1/2 needles 3 cc syringe with 18g 1 1/2 needles, See Instructions, # 30 each, Refills 5, Tot. Refills 5, Maintenance, use to draw up IM Progesterone, 04/16/20 16:03:00 EDT, Compound, 158, cm, 03/21/20 8:43:00 EDT, Height, 88.2, kg, 01/09/19 16:14:00 EDT, Dry Weight Start Date: 04/16/20 Status: Ordered estradiol 0.1 mg/24 hours twice weekly transdermal film, extended release See Instructions, apply 2 patches and change QOD, # 32 each, 0 Refills, Maintenance, 05/09/20 7:54:00 EDT, [facility], 158, cm, 05/02/20 14:32:00 EDT, Height, 88.2, kg, 01/09/19 16:14:00 EDT, Dry Weight Start Date: 05/09/20 Status: Ordered metFORMIN 500 mg oral tablet, extended release 3 tablet = 1,500 mg, By Mouth, Daily, with evening meal, # 90 tablet, 11 Refills, Maintenance, 01/31/20 11:39:00 EDT, [facility] #[id number], 158, cm, 01/29/20 13:44:00 EDT, Height, 88.2, kg, 01/09/19 16:14:00 EDT, Dry Weight Start Date: 01/31/20 Stop Date: 01/25/21 Status: Ordered omeprazole 20 mg oral enteric coated capsule 1 capsule = 20 mg, By Mouth, Daily, # 30 capsule, 0 Refills, Maintenance, 04/20/14 8:08:03, EC Capsule Start Date: 04/20/14 Status: Ordered oxyCODONE 5 mg oral tablet 5 mg, 1, tablet, By Mouth, Every 6 hours, PRN, # 6 tablet, Refills 0, Tot. Refills 0, Maintenance, Pain , Moderate, 05/31/20 15:20:00 EST, Route to Pharmacy Electronically, [facility] #[id number], Partial fill upon patient request, 158, cm, 05/02... Start Date: 05/31/20 Status: Ordered Multivitamins with Folic Acid 1 mg oral tablet 1 tablet, By Mouth, Daily, # 30 tablet, 10 Refills, Maintenance, 04/18/19 17:13:03 EDT, Tablet, 1 tablet By Mouth Daily Start Date: 04/18/19 Status: Ordered ProAir HFA 90 mcg/inh inhalation aerosol with adapter 2, puffs, Inhalation, 4 times a day, PRN, Refills 0, Maintenance, 08/19/17 14:09:51 Start Date: 08/19/17 Status: Ordered progesterone 50 mg/mL intramuscular solution See Instructions, Inject 1.5 mL Intramuscular Daily, # 5 each, 5 Refills, Maintenance, 05/27/20 8:35:00 EST, [facility], 158, cm, 05/02/20 14:32:00 EDT, Height, 87.5, kg, 05/27/20 2:26:00EST, Dry Weight Start Date: 05/27/20 Status: Ordered Synthroid 0.175 mg oral tablet 1 tablet = 175 mcg, By Mouth, Daily, must use name brand, # 30 tablet, 6 Refills, Maintenance, 02/05/20 15:13:00 EDT, Tablet, [facility] #[id number], 158, cm, 01/29/20 13:44:00 EDT, Height, 88.2, kg, 01/09/19 16:14:00 EDT, Dry Weight Start Date: 02/05/20 Status: Ordered Zofran 8 mg oral tablet 1 tablet = 8 mg, By Mouth, Every 8 hours, PRN Nausea & Vomiting, # 10 tablet, 0 Refills, Maintenance, 05/31/20 11:44:00 EST, Tablet, [facility] #[id number], Partial fill upon patient request, 158, cm, 05/02/20 14:32:00 EDT, Height, 87.5, kg, 11/0... Start Date: 05/31/20 Status: Ordered Problem List Condition Effective Dates Status Health Status Inform ant Asthma(Confirmed) Active Chronic endometritis(Confirmed) Active Hypothyroidism(Confirmed) Active Infertility, Female, Associa patrice with Anovulation(Confirmed) Active Menorrhagia(Confirmed) Active PCOS - Polycystic ovarian syndrome(Confirmed) Active Suprapubic abdominal pain(Confirmed) Active Social History Social History Type Response Smoking Status Never smoker; Tobacc o user in household: No entered on: 12/24/15 Sex
--- OUTSIDE RECORDS SUMMARY | 2024-04-10 10:49 | XMS_ITS | Continuity of Care Document ---
Author Organization [facility] Address Unknown Care Team Providers Care Ultrasound Technician Name Role Phone Mariposa Adrian NP Primary Care Physician [place] [facility] 06/24/21 - 07/01/21 [facility] Attending Physician: Christina Spence MD Referring Physician: Mariposa Adrian NP Allergies, Adverse Reactions, Alerts Substance Reaction Severity [...] patch, 5 Refills, Maintenance, 06/09/21 18:36:00 EST, [facility] #[id number], Partial fill upon patient request if the prescription is for a schedule II opioid drug., 1 patch Topically, 158, cm, 12/06/20 8... Start Date: 06/09/21 Status: Ordered folic acid 0.4 mg oral tablet 1 tablet = 0.4 mg, By Mouth, Daily, # 100 tablet, 3 Refills, Maintenance, 06/26/21 16:54:00 EST, Tablet, [facility] #[id number], Partial fill upon patient request if the prescription is for a schedule II opioid drug., 158, cm, 06/24/21 9:16:00 ES... Start Date: 06/26/21 Status: Ordered levothyroxine 150 mcg (0.15 mg) oral tablet 1 tablet = 150 mcg, By Mouth, Daily, # 60 tablet, 1 Refills, Maintenance, 02/17/21 13:28:00 EDT, Tablet, [facility] #[id number], Partial fill upon patient request if the prescription is for a schedule II opioid drug., 158, cm, 12/06/20 8:28:00 ED... Start Date: 02/17/21 Status: Ordered metFORMIN 500 mg oral tablet, extended release 3 tablet = 1,500 mg, By Mouth, Daily, with evening meal, # 90 tablet, 11 Refills, Maintenance, 01/31/20 11:39:00 EDT, [facility] #[id number], 158, cm, 01/29/20 13:44:00 EDT, Height, 88.2, [...] progesterone 50 mg/mL intramuscular solution See Instructions, 75mg/ml 1.5 ml (sesame oil) Intramuscular Daily. Start when instructed, # 5 each,5 Refills, Maintenance, 06/09/21 15:40:00 EST, [facility], Partial fill upon patient request if the prescription is for a schedule II opioi... Start Date: 06/09/21 Status: Ordered Provera 10 mg oral tablet 10 mg, 1, tablet, By Mouth, Daily, # 10 tablet, Refills 0, Tot. Refills 0, Maintenance, 05/26/21 11:44:00 EST, Route to Pharmacy Electronically, [facility] #[id number], Partial fill upon patientrequest if the prescription is for a schedule II op... Start Date: 05/26/21 Stop Date: 06/05/21 Status: Ordered Provera 10 mg oral tablet 10 mg, 1, tablet, By Mouth, Daily, # 7 tablet, Refills 0, Tot. Refills 0, Maintenance, 02/17/21 13:23:00 EDT, Route to Pharmacy Electronically, [facility] #[id number], Partial fill upon patient request if the prescription is for a schedule II opi... Start Date: 02/17/21 Stop Date: 02/24/21 Status: Ordered Valium 5 mg oral tablet 5 mg, 1, tablet, By Mouth, call center consultant to Procedure, May need to repeat!, # 2 tablet, Refills 0, Tot. Refills 0, Maintenance, 06/25/21 10:29:00 EST, Route to Pharmacy Electronically, [facility]#[id number], Partial fill upon patient request if the pr... Start Date: 06/25/21 Status: Ordered Vivelle-Dot 0.1 mg/24 hours twice weekly transdermal film, extended release See Instructions, Place 1 patch on day 1-4 then 2 patches on day 5-10 and then 4 patches on day 11-14 changing patches QOD., # 8 patch, 1 Refills, Maintenance, 06/10/21 14:42:00 EST, [facility] #[id number], Partial fill upon patient request if t... Start Date: 06/10/21 Status: Ordered Problem List Condition Effective Dates Status Health Status Inform ant Asthma(Confirmed) Active Chronic endometritis(Confirmed) Active Hypothyroidism(Confirmed) Active Infertility, Female, Associa patrice with Anovulation(Confirmed) Active Menorrhagia(Confirmed) Active Obese class II(Confirmed) Active PCOS - Polycystic ovarian syndrome(Confirmed) Active Suprapubic abdominal pain(Confirmed) Active Vital Signs Most recent to oldest [Reference Range]: 1 Height 158 cm (06/24/21 9:16 AM) Weight 91.2 kg (06/24/21 9:16 AM) Body Mass Index [18.5-24.99] 36.53 *>HHI* (06/24/21 9:16 AM) Blood Pressure [90-138/55-84 mm Hg] 137/ 81mm Hg (06/24/21 9:16 AM) Weight Obtained Via Standing scale (12/7/21 9:16 AM) Social History Social History Type Response Smoking Status Never smoker; Tobacc o user in household: No entered on: 12/24/15 Sex
--- OUTSIDE RECORDS SUMMARY | 2024-04-10 10:49 | XMS_ITS | Continuity of Care Document ---
Author Organization [facility] Address [address] [place] [address], 4t [address] [place] [address]- Care Team Providers Care Associate Store Manager Name Role Phone Mason Rinaldi MD Primary Care Physician [phone] [place] [facility] - 08/03/19 [facility] [address], 4[address] [place] [address]- [facility] Attending Physician: Deidra Luong MD Allergies, Adverse Reactions, Alerts Substance Reaction Severity Status codeine red itchy Active aspirin red itchy Active morphine Active shellfish throat swells Active Adhesive Bandage 1 Active 1rash Immunizations Given and Recorded Vaccine Date Status Refusal Reason tetanus/diphtheria/pertussis, acel(Tdap) 1 08/02/12 Given 1Admin Note: VIS given, 08/11/2011 Medications 27g 1/2 needles 27g 1/2 needles, See Instructions, # 2 each, Refills 5, Tot. Refills 5, Maintenance, use to give novarel injection, 08/02/19 16:37:00 EST, Compound, 158, cm, 07/27/19 14:37:00 EST, Height, 88.2, kg,01/09/19 16:14:00 EDT, Dry Weight Start Date: 08/02/19 Status: Ordered 3 cc syringe with 22g 1 1/2 needles 3 cc syringe with 22g 1 1/2 needles, See Instructions, # 2 each, Refills 5, Tot. Refills 5, Maintenance, use to mix novarel, 08/02/19 16:37:00 EST, Compound, 158, cm, 07/27/19 14:37:00 EST, Height, 88.2, kg, 01/09/19 16:14:00 EDT, Dry Weight Start Date: 08/02/19 Status: Ordered Apri 0.15 mg-0.03 mg oral tablet 1 tablet, By Mouth, Daily, 1 active tablet daily on day 1 of period, take 21 days of active tablets,skip placebos start the next pack, # 1 pack/packet, 3 Refills, Maintenance, 08/01/19 12:52:00 EST,[facility] - [address] [place] [address], 1 tablet By Mouth Daily,... Start Date: 08/01/19 Status: Ordered Cetrotide 0.25 mg subcutaneous injection See Instructions, use 0.25 mg daily when instructed, # 4 each, 5 Refills, Maintenance, 08/02/19 16:36:00 EST, [facility], 158, cm, 07/27/19 14:37:00 EST, Height, 88.2, kg, 01/09/19 16:14:00 EDT, Dry Weight Start Date: 08/02/19 Status: Ordered doxycycline hyclate 100 mg oral tablet 1 tablet = 100 mg, By Mouth, 2 times a day, # 28 tablet, 5 Refills, Maintenance, 08/02/19 16:36:00 EST, [facility], 158, cm, 07/27/19 14:37:00 EST, Height, 88.2, kg, 01/09/19 16:14:00 EDT, Dry Weight Start Date: 08/02/19 Status: Ordered Gonal-F 1050 units subcutaneous injection 225 IU, Subcutaneous Infusion, Daily, # 3 kit, 5 Refills, Maintenance, 08/02/19 16:36:00 EST, [facility], 225 IU Subcutaneous Infusion Daily, 158, cm, 07/27/19 14:37:00 EST, Height, 88.2,kg, 01/09/19 16:14:00 EDT, Dry Weight Start Date: 08/02/19 Status: Ordered leuprolide 5 mg/mL subcutaneous solution See Instructions, 40 units x 1 when directed, # 1 kit, 5 Refills, Maintenance, 08/02/19 16:36:00 EST, [facility], 158, cm, 07/27/19 14:37:00 EST, Height, 88.2, kg, 01/09/19 16:14:00 EDT, Dry Weight Start Date: 08/02/19 Status: Ordered Menopur 75 intl units subcutaneous injection = 75 International_Units, Subcutaneous Infusion, Daily, # 12 each, 5 Refills, Maintenance, 08/02/2016:10:00 EST, [facility], 158, cm, 07/27/19 14:37:00 EST, Height, 88.2, kg, 01/09/19 16:14:00 EDT, Dry Weight Start Date: 08/02/19 Status: Ordered Novarel 5000 units intramuscular injection = 1,000 units, Subcutaneous Injection, Once, take x 1 when directed, # 1 each, 5 Refills, Soft Stop, 08/02/19 16:37:00 EST, [facility], 158, cm, 07/27/19 14:37:00 EST, Height, 88.2, kg, 01/09/19 16:14:00 EDT, Dry Weight Start Date: 08/02/19 Status: Ordered omeprazole 20 mg oral enteric coated capsule 1 capsule = 20 mg, By Mouth, Daily, # 30 capsule, 0 Refills, Maintenance, 04/20/14 8:08:03, EC Capsule Start Date: 04/20/14 Status: Ordered Multivitamins with Folic Acid 1 mg oral tablet 1 tablet, By Mouth, Daily, # 30 tablet, 10 Refills, Maintenance, 04/18/19 17:13:03 EDT, Tablet, 1 tablet By Mouth Daily Start Date: 04/18/19 Status: Ordered ProAir HFA 90 mcg/inh inhalation aerosol with adapter 2, puffs, Inhalation, 4 times a day, PRN, Refills 0, Maintenance, 08/19/17 14:09:51 Start Date: 08/19/17 Status: Ordered Synthroid 0.175 mg oral tablet 1 tablet = 175 mcg, By Mouth, Daily, # 30 tablet, 6 Refills, Maintenance, 06/24/18 13:06:12 EST, Tablet Start Date: 06/24/18 Stop Date: 09/17/19 Status: Ordered Problem List Condition Effective Dates Status Health Status Inform ant Asthma(Confirmed) Active Chronic endometritis(Confirmed) Active Hypothyroidism(Confirmed) Active Infertility, Female, Associa patrice with Anovulation(Confirmed) Active Menorrhagia(Confirmed) Active PCOS - Polycystic ovarian syndrome(Confirmed) Active Suprapubic abdominal pain(Confirmed) Active Vital Signs Most recent to oldest [Reference Range]: 1 Height 158 cm (07/27/19 2:37 PM) Weight 90.5 kg (07/27/19 2:37 PM) Pulse Rate [55-90 bpm] 73 bpm (07/27/19 2:37 PM) Body Mass Index [18.5-24.99] 36.25 *>HHI* (07/27/19 2:37 PM) Blood Pressure [90-138/55-84 mm Hg] 137/ 75mm Hg (07/27/19 2:37 PM) Blood pressure sites Arm, right (07/27/19 2:37 PM) Social History Social History Type Response Smoking Status Never smoker; Tobacc o user in household: No entered on: 12/24/15 Sex
--- OUTSIDE RECORDS SUMMARY | 2024-04-10 10:49 | XMS_ITS | Continuity of Care Document ---
Author Organization [facility] e [facility] Address [address], 4t [address] [place] [address] [place] [address]- Care Team Providers Care Photographic Plate Maker Name Role Phone Mason Rinaldi MD Primary Care Physician [place] [facility] [place](s): 05/02/20 - 05/09/20 [facility] [address], 4[address] [place] [address]- [facility] Attending Physician: Lee Ann Stephens MD Referring Physician: Mason Rinaldi MD Allergies, Adverse Reactions, Alerts Substance Reaction [...] each, 0 Refills, Maintenance, 05/09/20 7:54:00 EDT, [facility], 158, cm, 05/02/20 14:32:00 EDT, Height, 88.2, kg, 01/09/19 16:14:00 EDT, Dry Weight Start Date: 05/09/20 Status: Ordered metFORMIN 500 mg oral tablet, extended release 3 tablet = 1,500 mg, By Mouth, Daily, with evening meal, # 90 tablet, 11 Refills, Maintenance, 01/31/20 11:39:00 EDT, [facility] #[id number], 158, cm, 01/29/20 13:44:00 EDT, Height, 88.2, [...] Status: Ordered progesterone 50 mg/mL intramuscular solution 1 mL = 50 mg, Intramuscular, Daily, in sesame oil, # 30 mL, 5 Refills, Maintenance, 04/16/20 16:04:00 EDT, [facility], 158, cm, 03/21/20 8:43:00 EDT, Height, 88.2, kg, 01/09/19 16:14:00 EDT, Dry Weight Start Date: 04/16/20 Status: Ordered Synthroid 0.175 mg oral tablet 1 tablet = 175 mcg, By Mouth, Daily, must use name brand, # 30 tablet, 6 Refills, Maintenance, 02/05/20 15:13:00 EDT, Tablet, [facility] #[id number], 158, cm, 01/29/20 13:44:00 EDT, Height, 88.2, kg, 01/09/19 16:14:00 EDT, Dry Weight Start Date: 02/05/20 Status: Ordered Problem List Condition Effective Dates [...]
--- OUTSIDE RECORDS SUMMARY | 2024-04-10 10:49 | XMS_ITS | Continuity of Care Document ---
Author Organization [facility] [employer] [facility] Address [address] [place] [address], [address] [place] [address]- Care Team Providers Care Agribusiness Internship Name Role Phone Kaylah SNOW, Mariposa Cassidy Primary Care Physician [id number] Date(s): 04/10/22 - 05/10/22 [facility] [address] [place], [place] [address] Attending Physician: Farzad Resendez Admitting Physician: Farzad Resendez Referring Physician: Farzad Resendez Allergies, Adverse Reactions, Alerts Substance Reaction Severity Status codeine red itchy Active aspirin red itchy Active morphine Active shellfish throat swells Active Adhesive Bandage 1 Active 1rash Immunizations Given and Recorded Vaccine Date Status Refusal Reason tetanus/diphtheria/pertussis, acel(Tdap) 12/26/21 Given tetanus/diphtheria/pertussis, acel(Tdap) 1 08/02/12 Given 1Admin Note: VIS given, 08/11/2011 Medications acetaminophen 325 mg oral capsule 2 capsule = 650 mg, By Mouth, Every 4 hours, PRN as needed for pain, # 50 tablet, 0 Refills, Maintenance, 03/05/22 22:26:00 EDT, Capsule, [facility] #[id number], Partial fill upon patient request if the prescription is for a schedule II opioid . Start Date: 03/05/22 Status: Ordered aspirin 81 mg oral tablet, chewable 162 mg, 2, tablet, Chew, Daily, # 60 tablet, Refills 8, Tot. Refills 8, Maintenance, 08/26/21 11:37:00 EST, Route to Pharmacy Electronically, [facility] #[id number], Partial fill upon patient request if the prescription is for a schedule II opioi... Start Date: 08/26/21 Status: Ordered Colace sodium 100 mg oral capsule 100 mg, 1, capsule, By Mouth, 2 times a day, PRN, # 20 capsule, Refills 0, Tot. Refills 0, Maintenance, for constipation, 03/05/22 22:26:00 EDT, Route to Pharmacy Electronically, [facility][id number], Partial fill upon patient request if the pr... Start Date: 03/05/22 Status: Ordered ibuprofen 600 mg oral tablet 600 mg, 1, tablet, By Mouth, Every 6 hours, # 50 tablet, Refills 0, Tot. Refills 0, Maintenance, 03/05/22 22:26:00 EDT, Route to Pharmacy Electronically, [facility] #[id number], Partial fill upon patient request if the prescription is for a sched... Start Date: 03/05/22 Status: Ordered levothyroxine 175 mcg (0.175 mg) oral tablet 1 tablet = 175 mcg, By Mouth, Daily, # 30 tablet, 0 Refills, Maintenance, 10/16/21 23:50:00 EDT, Tablet, Partial fill upon patient request if the prescription is for a schedule II opioid drug. Start Date: 10/16/21 Status: Ordered Mirena 52 mg intrauterine device 1 each = 52 mg, Intrauterine, Once, # 1 each, 0 Refills, Soft Stop, 04/09/22 10:41:00 EDT, [facility], Partial fill upon patient request if the prescription is for a schedule II opioid drug., 158, cm, 03/19/22 15:29:00 EDT, Height, 90... Start Date: 04/09/22 Status: Ordered oxyCODONE 5 mg oral tablet 10 mg, 2, tablet, By Mouth, Every 6 hours, PRN, # 12 tablet, Refills 0, Tot. Refills 0, Maintenance, for pain, 03/05/22 22:26:00 EDT, Route to Pharmacy Electronically, [facility] #[id number], Partial fill upon patient request if the prescription... Start Date: 03/05/22 Status: Ordered Multivitamins with Vitamin B Complex, [...] 08/19/17 14:09:51 Start Date: 08/19/17 Status: Ordered simethicone 125 mg oral tablet, chewable 1 tablet = 125 mg, Chew, 4 times a day, # 48 tablet, 0 Refills, Maintenance, 03/05/22 22:26:00 EDT,Chew Tablet, [facility] #[id number], Partial fill upon patient request if the prescription is for a schedule II opioid drug., 158, cm, 03/05/22 20... Start Date: 03/05/22 Status: Ordered Zoloft 25 mg oral tablet 1 tablet = 25 mg, By Mouth, Daily, 1 tablet orally daily x1 week, then increase to 2 tablets a day,# 30 tablet, 0 Refills, Maintenance, 04/10/22 11:20:00 EDT, Tablet, [facility] #[id number], Partial fill upon patient request if the prescription... Start Date: 04/10/22 Status: Ordered Problem List Condition Confirmation Course Effective Dates Status H ealth Status Informant Asthma Confirmed Active History of depression Confirmed Active Hyperthyroidism Confirmed Active Hypothyroidism Confirmed Active Obese class I Confirmed Active PCOS - Polycystic ovarian syndrome Confirmed Active PCOS (polycystic ovarian syndrome) Confirmed Active Last Pap smear 08/26/21 negative with negative HPV Confirmed Active Social History Social History Type Response Smoking Status Never (less than 100 in lifetime) entered on: 08/25/21 Sex Patient Care team information Personnel Name: Mariposa Adrian NP Address: Address: [address] [place] [id number]
--- OUTSIDE RECORDS SUMMARY | 2024-04-10 10:49 | XMS_ITS | Continuity of Care Document ---
Author Organization [facility] [place] [facility] Address [address] [place] [address], [address] [place] [address]- Care Team Providers Care Senior Product Marketing Manager Name Role Phone Kaylah SNOW, Mariposa Cassidy Primary Care Physician [phone] Encounter [facility] Date(s): 09/15/21 - 10/15/21 [facility] [employer] [facility] [address] [place] [address], [address] [place] [address]- Allergies, Adverse Reactions, Alerts Substance Reaction Severity [...] 08/26/21 11:37:00 EST, Route to Pharmacy Electronically, [facility] #[id number], Partial fill upon patient request if the prescription is for a schedule II opioi... Start Date: 08/26/21 Status: Ordered bisacodyl 10 mg rectal suppository 1 supp = 10 mg, Rectally, Daily, PRN for constipation, # 10 supp, 0 Refills, Maintenance, 08/10/21 18:57:00 EST, Suppository, [facility]/pharmacy #[id number], Partial fill upon patient request if the prescriptionis for a schedule II opioid drug., 158, cm, ... Start Date: 08/10/21 Status: Ordered clotrimazole 1% topical cream 1 application, Topically, 2 times a day, # 15 Gm, 0 Refills, Maintenance, 10/03/21 9:22:00 EDT, Cream, [facility]/pharmacy #[id number], Partial fill upon patient request if the prescription is for a schedule II opioid drug., 1 application Topically 2 times a day,... Start Date: 10/03/21 Status: Ordered Docusate PRN as needed for constipation, 0 Refills, Maintenance, 08/25/21 14:26:00 EST, Partial fill upon patient request if the prescription is for a schedule II opioid drug. Start Date: 08/25/21 Status: Ordered doxylamine-pyridoxine 10 mg-10 mg oral delayed release tablet 2 tablet, By Mouth, Daily at bedtime, # 60 tablet, 1 Refills, Maintenance, 08/26/21 11:31:00 EST, CR Tablet, [facility] #[id number], Partial fill upon patient request if the [...] patch, 5 Refills, Maintenance, 06/09/21 18:36:00 EST, [facility] #[id number], Partial fill upon patient request if the prescription is for a schedule II opioid drug., 1 patch Topically, 158, cm, 12/06/20 8... Start Date: 06/09/21 Status: Ordered folic acid 0.4 mg oral tablet 1 tablet = 0.4 mg, By Mouth, Daily, # 100 tablet, 3 Refills, Maintenance, 06/26/21 16:54:00 EST, Tablet, [facility] #[id number], Partial fill upon patient request if the prescription is for a schedule II opioid drug., 158, cm, 06/24/21 9:16:00 ES... Start Date: 06/26/21 Status: Ordered levothyroxine 150 mcg (0.15 mg) oral tablet 1 tablet = 150 mcg, By Mouth, Daily, # 60 tablet, 1 Refills, Maintenance, 02/17/21 13:28:00 EDT, Tablet, [facility] #[id number], Partial fill upon patient request if the [...] 5Refills, Maintenance, 07/09/21 10:58:00 EST, [facility], Partial fill upon patient request if the prescription is for a schedule II opioid... Start Date: 07/09/21 Status: Ordered Reglan 5 mg oral tablet 1 tablet = 5 mg, By Mouth, Every 6 hours, PRN Nausea & Vomiting, # 90 tablet, 1 Refills, Maintenance, 08/10/21 18:58:00 EST, Tablet, [facility]/pharmacy #[id number], Partial fill upon patient request if the [...] patch, 1 Refills, Maintenance, 06/10/21 14:42:00 EST, [facility] #[id number], Partial fill upon patient request if t... Start Date: 06/10/21 Status: Ordered Zofran 4 mg oral tablet 1 tablet = 4 mg, By Mouth, Every 8 hours, PRN as needed for nausea/vomiting, # 20 tablet, 0 Refills, Maintenance, 08/05/21 17:23:00 EST, Tablet, [facility] #[id number], Partial fill upon patientrequest if the prescription is for a schedule II op... Start Date: 08/05/21 Status: Ordered Zofran 8 mg oral tablet 1 tablet = 8 mg, By Mouth, 2 times a day, # 20 tablet, 0 Refills, Acute 08/27/22 11:32:00 EST, 08/26/21 11:31:00 EST, Tablet, [facility] #[id number], Partial fill upon patient request if the [...]
--- OUTSIDE RECORDS SUMMARY | 2024-04-10 10:49 | XMS_ITS | Continuity of Care Document ---
Author Organization [facility] Address [address] [place] [address]- Care Team Providers Care Supervisor Computer Operations Name Role Phone Kaylah SNOW, Mariposa Cassidy Primary Care Physician Encounter [facility] Date(s): 10/17/23 - 11/16/23 [facility] [address] [place] [address]- Allergies, Adverse Reactions, Alerts Substance Reaction Severity Status codeine red itchy Active aspirin red itchy Active morphine Active shellfish throat swells Active Adhesive Bandage 1 Active 1rash Immunizations Given and Recorded Vaccine Date Status Refusal Reason tetanus/diphtheria/pertussis, acel(Tdap) 12/26/21 Given tetanus/diphtheria/pertussis, acel(Tdap) 1 08/02/12 Given SARS-CoV-2 (COVID-19) mRNA BNT-162b2 vac 06/05/21 Recorded SARS-CoV-2 (COVID-19) mRNA BNT-162b2 vac 09/23/20 Recorded SARS-CoV-2 (COVID-19) mRNA BNT-162b2 vac 09/02/20 Recorded 1Admin Note: VIS given, 08/11/2011 Medications levothyroxine 150 mcg (0.15 mg) oral tablet 1 tablet = 150 mcg, By Mouth, Daily, # 30 tablet, 2 Refills, Maintenance, 09/17/23 15:00:00 EST, Tablet, [facility] #[id number], Partial fill upon patient request if the prescription is for a schedule II opioid drug., 158, cm, 04/10/22 11:14:00 E... Start Date: 09/17/23 Status: Ordered Problem List Condition Confirmation Course Effective Dates Status H ealth Status Informant Abnormal uterine bleeding Confirmed Active Asthma Confirmed Active Left ovarian cyst Confirmed Active History of depression Confirmed Active Hypothyroidism Confirmed Active Obese class I Confirmed Active Obese class II Confirmed Active PCOS - Polycystic ovarian syndrome Confirmed Active PCOS (polycystic ovarian syndrome) Confirmed Active Last Pap smear 08/26/21 negative with negative HPV Confirmed Active Social History Social History Type Response Smoking Status Never (less than 100 in lifetime) entered on: 08/25/21 Sex Female Patient Care team information Care Team Personnel Name: Vidya Lobo RN Position: [facility]ita THOMAS RN Member Role: Primary Care Nurse Name: Joy Herron RN Position: [facility]ita RN Member Role: Primary Care Nurse Name: Mariposa Adrian NP Position: Reference Physician Member Role: PCP Address: Address: [address] [place] [address]- [place] Care Team Related Persons Name: POLO MANRIQUEZ Address: home [address] [place] [address] Name: MAGUI MANRIQUEZ Address: [id number] Address: home [address] [place] [address] [place] Name: ALCIDES WARNER Address: home [address] [address]
--- OUTSIDE RECORDS SUMMARY | 2024-04-10 10:49 | XMS_ITS | Continuity of Care Document ---
Author Organization [facility] Address [address] [place] [address], [address] [place] [address]- Care Team Providers Care Conversion Worker Name Role Phone Kaylah SNOW, Mariposa Cassidy Primary Care Physician [id number] Date(s): 02/19/22 - 02/26/22 [facility] [address] [place] [address], [address] [place] [address]- Attending Physician: Yong REYES, Sofía Staley Allergies, Adverse Reactions, Alerts Substance Reaction Severity Status codeine red itchy Active aspirin red itchy Active shellfish throat swells Active Adhesive Bandage 1 Active morphine Active 1rash Immunizations Given and Recorded Vaccine [...] 08/26/21 11:37:00 EST, Route to Pharmacy Electronically, [facility] #[id number], Partial fill upon patient request if the prescription is for a schedule II opioi... Start Date: 08/26/21 Status: Ordered bisacodyl 10 mg rectal suppository 1 supp = 10 mg, Rectally, Daily, PRN for constipation, # 10 supp, 0 Refills, Maintenance, 08/10/21 18:57:00 EST, Suppository, [facility]/pharmacy #[id number], Partial fill upon patient request if the prescriptionis for a schedule II opioid drug., 158, cm, ... Start Date: 08/10/21 Status: Ordered Docusate PRN as needed for constipation, 0 Refills, Maintenance, 08/25/21 14:26:00 EST, Partial fill upon patient request if the prescription is for a schedule II opioid drug. Start Date: 08/25/21 Status: Ordered folic acid 0.4 mg oral tablet 1 tablet = 0.4 mg, By Mouth, Daily, # 100 tablet, 3 Refills, Maintenance, 06/26/21 16:54:00 EST, Tablet, [facility] #[id number], Partial fill upon patient request if the [...] opioid drug. Start Date: 10/16/21 Status: Ordered metFORMIN 500 mg oral tablet See Instructions, 1 tablet By Mouth Daily and increase to 2 tablets in 4-5 days if tolerating, # 60each, 3 Refills, Maintenance, 02/18/22 11:08:00 EDT, [facility] #[id number], Partial fill uponpatient request if the prescription is for a schedu... Start Date: 02/18/22 Status: Ordered MiraLax = 17 Gm, By [...] 1 Refills, Maintenance, 08/10/21 18:58:00 EST, Tablet, [facility]/pharmacy #[id number], Partial fill upon patient request if the prescription is for a schedule II opioid drug., 158, cm,... Start Date: 08/10/21 Status: Ordered Zofran 8 mg oral tablet 1 tablet = 8 mg, By Mouth, 2 times a day, # 20 tablet, 0 Refills, Acute 08/27/22 11:32:00 EST, 08/26/21 11:31:00 EST, Tablet, [facility] #[id number], Partial fill upon patient request if the prescription is for a schedule II opioid drug., 158, cm... Start Date: 08/26/21 Stop Date: 08/27/22 Status: Ordered Problem List Condition Effective Dates Status Health Status Inform ant Asthma(Confirmed) Active Breech presentation(Confirmed) Active Size > dates 39 cm at 32 weeks(Confirmed) Active History of depression(Confirmed) Active Hyperthyroidism(Confirmed) Active Hypothyroidism(Confirmed) Active Infertility, Female, Associa patrice with Anovulation(Confirmed) Active Menorrhagia(Confirmed) Active Obese class II(Confirmed) Active PCOS - Polycystic ovarian syndrome(Confirmed) Active PCOS (polycystic ovarian syndrome)(Confirmed) Active Suprapubic abdominal pain(Confirmed) Active Uterine scar from previous c esarean delivery(Confirmed) Active Social History Social History Type Response Smoking Status Never (less than 100 in lifetime) entered on: 08/25/21 Sex
--- OUTSIDE RECORDS SUMMARY | 2024-04-10 10:49 | XMS_ITS | Continuity of Care Document ---
Author Organization [facility] Address [address] [facility], [address]t [address] [place] [address]- Care Team Providers Care Middle Stitcher Name Role Phone Lesser Mason REYES Primary Care Physician Encounter [facility] ACCT R [id number] Date(s): 07/02/20 - 08/01/20 [facility] [address] [facility], [address]th [address] [place] [address] Attending Physician: Admtr, Farzad Admitting Physician: Admtr, Farzad Referring Physician: Admtr, Ar8 Allergies, Adverse Reactions, Alerts Substance Reaction Severity Status codeine red itchy Active Adhesive Bandage 1 Active aspirin red itchy Active morphine Active [...] each, 0 Refills, Maintenance, 05/09/20 7:54:00 EDT, [facility], 158, cm, 05/02/20 14:32:00 EDT, Height, 88.2, kg, 01/09/19 16:14:00 EDT, Dry Weight Start Date: 05/09/20 Status: Ordered Folbic oral tablet 1 tablet, By Mouth, Daily, # 30 tablet, 11 Refills, Maintenance, 07/05/20 10:24:00 EST, [facility] #[id number], Partial fill upon patient request if the prescription is for a schedule II opioid drug., 1 tablet By Mouth Daily, 158, cm, 05/02/20 14... Start Date: 07/05/20 Status: Ordered metFORMIN 500 mg oral tablet, extended release 3 tablet = 1,500 mg, By Mouth, Daily, with evening meal, # 90 tablet, 11 Refills, Maintenance, 01/31/20 11:39:00 EDT, [facility] #[id number], 158, cm, 01/29/20 13:44:00 EDT, Height, 88.2, [...] 05/31/20 15:20:00 EST, Route to Pharmacy Electronically, [facility] #[id number], Partial fill upon patient request, 158, cm, [...] 6 Refills, Maintenance, 02/05/20 15:13:00 EDT, Tablet, [facility] #[id number], 158, cm, 01/29/20 13:44:00 EDT, Height, 88.2, kg, 01/09/19 16:14:00 EDT, Dry Weight Start Date: 02/05/20 Status: Ordered Zofran 8 mg oral tablet 1 tablet = 8 mg, By Mouth, Every 8 hours, PRN Nausea & Vomiting, # 10 tablet, 0 Refills, Maintenance, 05/31/20 11:44:00 EST, Tablet, [facility] #[id number], Partial fill upon patient request, 158, cm, 05/02/20 14:32:00 EDT, Height, 87.5, kg, 0... Start Date: 05/31/20 Status: Ordered Problem List Condition Effective Dates Status Health Status Inform ant Asthma(Confirmed) Active Chronic endometritis(Confirmed) Active Hypothyroidism(Confirmed) Active Infertility, Female, Associa patrice with Anovulation(Confirmed) Active Menorrhagia(Confirmed) Active PCOS - Polycystic ovarian syndrome(Confirmed) Active Suprapubic abdominal pain(Confirmed) Active Vital Signs Most recent to oldest [Reference Range]: 1 Weight 85.6 kg (02/05/18 10:49 AM) Blood Pressure [90-138/55-84 mm Hg] 120/ 68mm Hg (02/05/18 10:49 AM) Social History Social History Type Response Smoking Status Never smoker; Tobacc o user in household: No entered on: 12/24/15 Sex
--- OUTSIDE RECORDS SUMMARY | 2024-04-10 10:49 | XMS_ITS | Continuity of Care Document ---
Author Organization [facility] Address [address] [place] [address]- Care Team Providers Care Supervisor Sample Preparation Name Role Phone Mason Rinaldi MD Primary Care Physician Encounter [facility] Date(s): 05/08/20 - 05/08/[address] [address]- [facility] Discharge Disposition: A-D/C Home Attending Physician: La Cary MD Admitting Physician: La Cary MD Referring Physician: La Cary MD Allergies, Adverse Reactions, Alerts Substance Reaction [...] Dry Weight Start Date: 04/16/20 Status: Ordered Cetrotide 0.25 mg subcutaneous injection See Instructions, use 0.25 mg daily when instructed, # 4 each, 5 Refills, Maintenance, 01/17/20 14:56:00 EDT, [facility], 158, cm, 09/22/19 13:02:00 EST, Height, 88.2, kg, 01/09/19 16:14:00 EDT, Dry Weight Start Date: 01/17/20 Status: Ordered estradiol 0.1 mg/24 hours twice weekly transdermal film, extended release See Instructions, apply 1 patch on day 1 of menses and follow FET protocol., # 32 each, 0 Refills, Maintenance, 04/16/20 15:59:00 EDT, [facility], olesya starkelle order, 158, cm, 03/21/20 8:43:00 EDT, Height, 88.2, kg, 01/09/19 16:14:0... Start Date: 04/16/20 Status: Ordered levothyroxine 150 mcg (0.15 mg) oral tablet 1 tablet = 150 mcg, By Mouth, Daily, take 150 mcg , 1 pill 6 days a week and 0.5 pill , once a week, # 60 tablet, 0 Refills, Maintenance, 12/27/19 10:14:00 EDT, Tablet, [facility] #[id number], labs needed prior to next refill, 158, cm, 09/22/19 1... Start Date: 12/27/19 Status: Ordered levothyroxine 175 mcg (0.175 mg) oral tablet 1 tablet = 175 mcg, By Mouth, Daily, # 30 tablet, 3 Refills, Maintenance, 02/01/20 13:20:00 EDT, Tablet, [facility] #[id number], 158, cm, 01/29/20 13:44:00 EDT, Height, 88.2, kg, 01/09/19 16:14:00 EDT, Dry Weight Start Date: 02/01/20 Status: Ordered metFORMIN 500 mg oral tablet, extended release 3 tablet = 1,500 mg, By Mouth, Daily, with evening meal, # 90 tablet, 11 Refills, Maintenance, 01/31/20 11:39:00 EDT, [facility] #[id number], 158, cm, 01/29/20 13:44:00 EDT, Height, 88.2, [...] 6 Refills, Maintenance, 02/05/20 15:13:00 EDT, Tablet, [facility] #[id number], 158, cm, 01/29/20 13:44:00 EDT, Height, 88.2, kg, 01/09/19 16:14:00 EDT, Dry Weight Start Date: 02/05/20 Status: Ordered Valium 5 mg oral tablet 5 mg, 1, tablet, By Mouth, Once, 1 tab po 1hr before procedure take the other with you to the hospital. May repeat X 1., # 2 tablet, Refills 0, Tot. Refills 0, Soft Stop, 04/09/20 8:51:00 EDT, Route to Pharmacy Electronically, [facility] #[id number]... Start Date: 04/09/20 Status: Ordered Vivelle-Dot 0.1 mg/24 hours twice weekly transdermal film, extended release See Instructions, apply 1 patch day 1 of menses and follow the FET protocol, # 32 each, 3 Refills, Maintenance, 04/16/20 14:29:00 EDT, [facility], pt needs meds for tomorrow, 158, cm, 03/21/20 8:43:00 EDT, Height, 88.2, kg, 01/09/19 1... Start Date: 04/16/20 Status: Ordered Problem List Condition Effective Dates [...]
--- OUTSIDE RECORDS SUMMARY | 2024-04-10 10:49 | XMS_ITS | Continuity of Care Document ---
Author Organization [facility] Address [address] [place] [address], [address]t [place] [address]- Care Team Providers Care Business Development Associate Name Role Phone Kaylah SNOW, Mariposa Cassidy Primary Care Physician Encounter [facility] ACCT R [id number] Date(s): 02/06/22 - 04/18/22 [facility] [address] [facility], [address] [employer], [place] [address] Attending Physician: Yong REYES, Sofía Staley Allergies, [...] 0 Refills, Maintenance, 03/05/22 22:26:00 EDT, Capsule, [facility] #[id number], Partial fill upon patient request if the prescription is for a schedule II opioid drBrenda Start Date: 03/05/22 Status: Ordered aspirin 81 mg oral tablet, chewable 162 mg, 2, tablet, Chew, Daily, # 60 tablet, Refills 8, Tot. Refills 8, Maintenance, 08/26/21 11:37:00 EST, Route to Pharmacy Electronically, [facility] #[id number], Partial fill upon patient request if the prescription is for a schedule II opioi... Start Date: 08/26/21 Status: Ordered Colace sodium 100 mg oral capsule 100 mg, 1, capsule, By Mouth, 2 times a day, PRN, # 20 capsule, Refills 0, Tot. Refills 0, Maintenance, for constipation, 03/05/22 22:26:00 EDT, Route to Pharmacy Electronically, [facility]#[id number], Partial fill upon patient request if the pr... Start Date: 03/05/22 Status: Ordered ibuprofen 600 mg oral tablet 600 mg, 1, tablet, By Mouth, Every 6 hours, # 50 tablet, Refills 0, Tot. Refills 0, Maintenance, 03/05/22 22:26:00 EDT, Route to Pharmacy Electronically, [facility] #[id number], Partial fill upon patient request if the [...] 0 Refills, Soft Stop, 04/09/22 10:41:00 EDT, [facility], Partial fill upon patient request if the prescription is for a schedule II opioid drug., 158, cm, 03/19/22 15:29:00 EDT, Height, 90... Start Date: 04/09/22 Status: Ordered oxyCODONE 5 mg oral tablet 10 mg, 2, tablet, By Mouth, Every 6 hours, PRN, # 12 tablet, Refills 0, Tot. Refills 0, Maintenance, for pain, 03/05/22 22:26:00 EDT, Route to Pharmacy Electronically, [facility] #[id number], Partial fill upon patient request if the [...] 0 Refills, Maintenance, 03/05/22 22:26:00 EDT,Chew Tablet, [facility] #[id number], Partial fill upon patient request if the prescription is for a schedule II opioid drug., 158, cm, 03/05/22 20... Start Date: 03/05/22 Status: Ordered Zoloft 25 mg oral tablet 1 tablet = 25 mg, By Mouth, Daily, 1 tablet orally daily x1 week, then increase to 2 tablets a day,# 30 tablet, 0 Refills, Maintenance, 04/10/22 11:20:00 EDT, Tablet, [facility] #[id number], Partial fill upon patient request if the [...] Personnel Name: Mariposa Adrian NP Address: Address: [address] [place], [place] [address]
--- OUTSIDE RECORDS SUMMARY | 2024-04-10 10:49 | XMS_ITS | Continuity of Care Document ---
Author Organization [facility] Address Unknown Care Team Providers Care Replanting Machine Crew Name Role Phone Kaylah SNOW, Mariposa Cassidy Primary Care Physician Encounter [facility] Date(s): 02/06/21 - 03/08/21 [facility] Allergies, Adverse Reactions, Alerts [...] 5, Maintenance, use to give IM progesterone, 12/20/20 10:39:00 EDT, Compound, 158, cm, 12/06/20 8:28:00 EDT, Height, 87.5, kg, 05/27/20 2:26:00 EST, Dry Weight Start Date: 12/20/20 Status: Ordered 3 cc syringe with 18g 1 1/2 needles 3 cc syringe with 18g 1 1/2 needles, See Instructions, # 30 each, Refills 5, Tot. Refills 5, Maintenance, use to draw up IM Progesterone, 12/20/20 10:39:00 EDT, Compound, 158, cm, 12/06/20 8:28:00 EDT, Height, 87.5, kg, 05/27/20 2:26:00 EST, Dry Weight Start Date: 12/20/20 Status: Ordered estradiol 0.1 mg/24 hours twice weekly transdermal film, extended release See Instructions, apply 1-4 patches and change QOD. Follow calendar/protocol., # 32 each, 5 Refills, Maintenance, 12/20/20 10:39:00 EDT, [facility], 158, cm, 12/06/20 8:28:00 EDT, Height, 87.5, kg, 05/27/20 2:26:00 EST, Dry Weight Start Date: 12/20/20 Status: Ordered Folbic oral tablet 1 tablet, By Mouth, Daily, # 30 tablet, 11 Refills, Maintenance, 07/05/20 10:24:00 EST, [facility] #[id number], Partial fill upon patient request if the prescription is for a schedule II opioid drug., 1 tablet By Mouth Daily, 158, cm, 05/02/20 14... Start Date: 07/05/20 Status: Ordered levothyroxine 150 mcg (0.15 mg) oral tablet 1 tablet = 150 mcg, By Mouth, Daily, # 60 tablet, 1 Refills, Maintenance, 02/17/21 13:28:00 EDT, Tablet, [facility] #[id number], Partial fill upon patient request if the prescription is for a schedule II opioid drug., 158, cm, 12/06/20 8:28:00 ED... Start Date: 02/17/21 Status: Ordered metFORMIN 500 mg oral tablet, extended release 3 tablet = 1,500 mg, By Mouth, Daily, with evening meal, # 90 tablet, 11 Refills, Maintenance, 01/31/20 11:39:00 EDT, [facility] #[id number], 158, cm, 01/29/20 13:44:00 EDT, Height, 88.2, [...] solution See Instructions, Inject 1.5 mL Intramuscular Daily with positive hCG, # 5 each, 5 Refills, Maintenance, 12/20/20 10:39:00 EDT, [facility], 158, cm, 12/06/20 8:28:00 EDT, Height, 87.5, kg, 05/27/20 2:26:00 EST, Dry Weight Start Date: 12/20/20 Status: Ordered Prometrium 200 mg oral capsule See Instructions, Begin when instructed. Insert 1 vaginally TID, # 90 capsule, 5 Refills, Maintenance, 12/20/20 10:39:00 EDT, [facility], Partial fill upon patient request if the prescription is for a schedule II opioid drug., 158, cm, .. Start Date: 12/20/20 Status: Ordered Provera 10 mg oral tablet 10 mg, 1, tablet, By Mouth, Daily, # 7 tablet, Refills 0, Tot. Refills 0, Maintenance, 02/17/21 13:23:00 EDT, Route to Pharmacy Electronically, [facility] #[id number], Partial fill upon patient request if the prescription is for a schedule II opi... Start Date: 02/17/21 Stop Date: 02/24/21 Status: Ordered Problem List Condition Effective Dates [...]
--- OUTSIDE RECORDS SUMMARY | 2024-04-10 10:50 | XMS_ITS | Continuity of Care Document ---
Author Organization [facility] ter Address [address] [place] [address]- Care Team Providers Care Key Account Coordinator Name Role Phone Kaylah SNOW, Mariposa Cassidy Primary Care Physician [phone] Encounter [facility] [place] Date(s): 06/30/21 - 06/30/[address] [address] Discharge Disposition: A-D/C Home Attending Physician: Lee Ann Stephens MD Admitting Physician: Lee Ann Stephens MD Referring Physician: Lee Ann Stephens MD [...] patch, 5 Refills, Maintenance, 06/09/21 18:36:00 EST, [facility] #[id number], Partial fill upon patient request if the prescription is for a schedule II opioid drug., 1 patch Topically, 158, cm, 12/06/20 8... Start Date: 06/09/21 Status: Ordered folic acid 0.4 mg oral tablet 1 tablet = 0.4 mg, By Mouth, Daily, # 100 tablet, 3 Refills, Maintenance, 06/26/21 16:54:00 EST, Tablet, [facility] #[id number], Partial fill upon patient request if the prescription is for a schedule II opioid drug., 158, cm, 06/24/21 9:16:00 ES... Start Date: 06/26/21 Status: Ordered levothyroxine 150 mcg (0.15 mg) oral tablet 1 tablet = 150 mcg, By Mouth, Daily, # 60 tablet, 1 Refills, Maintenance, 02/17/21 13:28:00 EDT, Tablet, [facility] #[id number], Partial fill upon patient request if the prescription is for a schedule II opioid drug., 158, cm, 12/06/20 8:28:00 ED... Start Date: 02/17/21 Status: Ordered metFORMIN 500 mg oral tablet, extended release 3 tablet = 1,500 mg, By Mouth, Daily, with evening meal, # 90 tablet, 11 Refills, Maintenance, 01/31/20 11:39:00 EDT, [facility] #[id number], 158, cm, 01/29/20 13:44:00 EDT, Height, 88.2, [...] 05/26/21 11:44:00 EST, Route to Pharmacy Electronically, [facility] #[id number], Partial fill upon patientrequest if the prescription is for a schedule II op... Start Date: 05/26/21 Stop Date: 06/05/21 Status: Ordered Provera 10 mg oral tablet 10 mg, 1, tablet, By Mouth, Daily, # 7 tablet, Refills 0, Tot. Refills 0, Maintenance, 02/17/21 13:23:00 EDT, Route to Pharmacy Electronically, [facility] #[id number], Partial fill upon patient request if the prescription is for a schedule II opi... Start Date: 02/17/21 Stop Date: 02/24/21 Status: Ordered Valium 5 mg oral tablet 5 mg, 1, tablet, By Mouth, registered diet technician to Procedure, May need to repeat!, # 2 tablet, Refills 0, Tot. Refills 0, Maintenance, 06/25/21 10:29:00 EST, Route to Pharmacy Electronically, [facility][id number], Partial fill upon patient request if the pr... Start Date: 06/25/21 Status: Ordered Vivelle-Dot 0.1 mg/24 hours twice weekly transdermal film, extended release See Instructions, Place 1 patch on day 1-4 then 2 patches on day 5-10 and then 4 patches on day 11-14 changing patches QOD., # 8 patch, 1 Refills, Maintenance, 06/10/21 14:42:00 EST, [facility] #[id number], Partial fill upon patient request if t... [...]
--- OUTSIDE RECORDS SUMMARY | 2024-04-10 10:50 | XMS_ITS | Continuity of Care Document ---
Author Organization [facility] [employer] Address [address] [place] [address], [address] [place] [address]- Care Team Providers Care Thermal Cutting Tracer Machine Operator Name Role Phone Kaylah SNOW, Mariposa Cassidy Primary Care Physician [place] [facility] [place](s): 09/14/21 - 10/14/21 [facility] [email or web address] [facility] [address] [place] [address], [address] [place] [address]- Allergies, Adverse Reactions, Alerts Substance Reaction Severity [...] 08/26/21 11:37:00 EST, Route to Pharmacy Electronically, [facility] #[id number], Partial fill upon patient request if the prescription is for a schedule II opioi... Start Date: 08/26/21 Status: Ordered bisacodyl 10 mg rectal suppository 1 supp = 10 mg, Rectally, Daily, PRN for constipation, # 10 supp, 0 Refills, Maintenance, 08/10/21 18:57:00 EST, Suppository, [facility]/pharmacy #[id number], Partial fill upon patient request if the prescriptionis for a schedule II opioid drug., 158, cm, ... Start Date: 08/10/21 Status: Ordered clotrimazole 1% topical cream 1 application, Topically, 2 times a day, # 15 Gm, 0 Refills, Maintenance, 10/03/21 9:22:00 EDT, Cream, [facility]/pharmacy #[id number], Partial fill upon patient [...] Refills, Maintenance, 08/26/21 11:31:00 EST, CR Tablet, [facility] #[id number], Partial fill upon patient request if the [...] patch, 5 Refills, Maintenance, 06/09/21 18:36:00 EST, [facility] #[id number], Partial fill upon patient request if the prescription is for a schedule II opioid drug., 1 patch Topically, 158, cm, 12/06/20 8... Start Date: 06/09/21 Status: Ordered folic acid 0.4 mg oral tablet 1 tablet = 0.4 mg, By Mouth, Daily, # 100 tablet, 3 Refills, Maintenance, 06/26/21 16:54:00 EST, Tablet, [facility] #[id number], Partial fill upon patient request if the prescription is for a schedule II opioid drug., 158, cm, 06/24/21 9:16:00 ES... Start Date: 06/26/21 Status: Ordered levothyroxine 150 mcg (0.15 mg) oral tablet 1 tablet = 150 mcg, By Mouth, Daily, # 60 tablet, 1 Refills, Maintenance, 02/17/21 13:28:00 EDT, Tablet, [facility] #[id number], Partial fill upon patient request if the [...] 5Refills, Maintenance, 07/09/21 10:58:00 EST, [facility], Partial fill upon patient request if the prescription is for a schedule II opioid... Start Date: 07/09/21 Status: Ordered Reglan 5 mg oral tablet 1 tablet = 5 mg, By Mouth, Every 6 hours, PRN Nausea & Vomiting, # 90 tablet, 1 Refills, Maintenance, 08/10/21 18:58:00 EST, Tablet, [facility]/pharmacy #[id number], Partial fill upon patient request if the [...] patch, 1 Refills, Maintenance, 06/10/21 14:42:00 EST, [facility] #[id number], Partial fill upon patient request if t... Start Date: 06/10/21 Status: Ordered Zofran 4 mg oral tablet 1 tablet = 4 mg, By Mouth, Every 8 hours, PRN as needed for nausea/vomiting, # 20 tablet, 0 Refills, Maintenance, 08/05/21 17:23:00 EST, Tablet, [facility] #[id number], Partial fill upon patientrequest if the prescription is for a schedule II op... Start Date: 08/05/21 Status: Ordered Zofran 8 mg oral tablet 1 tablet = 8 mg, By Mouth, 2 times a day, # 20 tablet, 0 Refills, Acute 08/27/22 11:32:00 EST, 08/26/21 11:31:00 EST, Tablet, [facility] #[id number], Partial fill upon patient request if the [...]
--- OUTSIDE RECORDS SUMMARY | 2024-04-10 10:50 | XMS_ITS | Continuity of Care Document ---
Author Organization [facility] Address [address], [address] [place] [address]- Care Team Providers Care Decorative Cutting Machine Tender Name Role Phone Mason Rinaldi MD Primary Care Physician [place] [facility] [place](s): 06/03/20 - 07/05/20 [facility] [address], 4[address] [place] [address]- Attending Physician: Not on Staff, Attending MD Referring Physician: Mason Rinaldi MD Allergies, [...] each, 0 Refills, Maintenance, 05/09/20 7:54:00 EDT, [facility], 158, cm, 05/02/20 14:32:00 EDT, Height, 88.2, kg, 01/09/19 16:14:00 EDT, Dry Weight Start Date: 05/09/20 Status: Ordered Folbic oral tablet 1 tablet, By Mouth, Daily, # 30 tablet, 11 Refills, Maintenance, 07/05/20 10:24:00 EST, [facility] #[id number], Partial fill upon patient request if the prescription is for a schedule II opioid drug., 1 tablet By Mouth Daily, 158, cm, 05/02/20 14... Start Date: 07/05/20 Status: Ordered metFORMIN 500 mg oral tablet, extended release 3 tablet = 1,500 mg, By Mouth, Daily, with evening meal, # 90 tablet, 11 Refills, Maintenance, 01/31/20 11:39:00 EDT, [facility] #[id number], 158, cm, 01/29/20 13:44:00 EDT, Height, 88.2, [...] 05/31/20 15:20:00 EST, Route to Pharmacy Electronically, [facility] #[id number], Partial fill upon patient request, 158, cm, [...] 6 Refills, Maintenance, 02/05/20 15:13:00 EDT, Tablet, [facility] #[id number], 158, cm, 01/29/20 13:44:00 EDT, Height, 88.2, kg, 01/09/19 16:14:00 EDT, Dry Weight Start Date: 02/05/20 Status: Ordered Zofran 8 mg oral tablet 1 tablet = 8 mg, By Mouth, Every 8 hours, PRN Nausea & Vomiting, # 10 tablet, 0 Refills, Maintenance, 05/31/20 11:44:00 EST, Tablet, [facility] #[id number], Partial fill upon patient request, 158, cm, 05/02/20 14:32:00 EDT, Height, 87.5, kg, /0... Start Date: 05/31/20 Status: Ordered Problem List [...]
--- OUTSIDE RECORDS SUMMARY | 2024-04-10 10:50 | XMS_ITS | Continuity of Care Document ---
Author Organization [facility] [employer] Address [address] [place] [address], [address] [place] [address]- Care Team Providers Care Machine Set Up Operator Name Role Phone Kaylah SNOW, Mariposa Cassidy Primary Care Physician [id number] Date(s): 11/05/21 - 12/05/21 [facility] [address], [address] [place] [address]- Allergies, Adverse Reactions, Alerts Substance Reaction Severity [...] 08/26/21 11:37:00 EST, Route to Pharmacy Electronically, [facility] #[id number], Partial fill upon patient request if the prescription is for a schedule II opioi... Start Date: 08/26/21 Status: Ordered bisacodyl 10 mg rectal suppository 1 supp = 10 mg, Rectally, Daily, PRN for constipation, # 10 supp, 0 Refills, Maintenance, 08/10/21 18:57:00 EST, Suppository, [facility]/pharmacy #[id number], Partial fill upon patient request if the prescriptionis for a schedule II opioid drug., 158, cm, ... Start Date: 08/10/21 Status: Ordered clotrimazole 1% topical cream 1 application, Topically, 2 times a day, # 15 Gm, 0 Refills, Maintenance, 10/03/21 9:22:00 EDT, Cream, [facility]/pharmacy #[id number], Partial fill upon patient request [...] 10/21/21 13:22:00 EDT, Route to Pharmacy Electronically, [facility] #[id number], Partial fill upon patient request if the [...] Refills, Maintenance, 08/26/21 11:31:00 EST, CR Tablet, [facility] #[id number], Partial fill upon patient request if the [...] patch, 5 Refills, Maintenance, 06/09/21 18:36:00 EST, [facility] #[id number], Partial fill upon patient request if the prescription is for a schedule II opioid drug., 1 patch Topically, 158, cm, 12/06/20 8... Start Date: 06/09/21 Status: Ordered folic acid 0.4 mg oral tablet 1 tablet = 0.4 mg, By Mouth, Daily, # 100 tablet, 3 Refills, Maintenance, 06/26/21 16:54:00 EST, Tablet, [facility] #[id number], Partial fill upon patient request if the [...] 1 Refills, Maintenance, 08/10/21 18:58:00 EST, Tablet, [facility]/pharmacy #[id number], Partial fill upon patient request if the [...] patch, 1 Refills, Maintenance, 06/10/21 14:42:00 EST, [facility] #[id number], Partial fill upon patient request if t... Start Date: 06/10/21 Status: Ordered Zofran 4 mg oral tablet 1 tablet = 4 mg, By Mouth, Every 8 hours, PRN as needed for nausea/vomiting, # 20 tablet, 0 Refills, Maintenance, 08/05/21 17:23:00 EST, Tablet, [facility] #[id number], Partial fill upon patientrequest if the prescription is for a schedule II op... Start Date: 08/05/21 Status: Ordered Zofran 8 mg oral tablet 1 tablet = 8 mg, By Mouth, 2 times a day, # 20 tablet, 0 Refills, Acute 08/27/22 11:32:00 EST, 08/26/21 11:31:00 EST, Tablet, [facility] #[id number], Partial fill upon patient request if the [...]
--- OUTSIDE RECORDS SUMMARY | 2024-04-10 10:50 | XMS_ITS | Continuity of Care Document ---
Author Organization [facility] Address Unknown Care Team Providers Care Dress Fitter Name Role Phone Kaylah NSOW, Mariposa Cassidy Primary Care Physician [phone] [place] [facility] [place] - 08/07/21 [facility] Attending Physician: Not on Staff, [...] patch, 5 Refills, Maintenance, 06/09/21 18:36:00 EST, [facility] #[id number], Partial fill upon patient request if the prescription is for a schedule II opioid drug., 1 patch Topically, 158, cm, 12/06/20 8... Start Date: 06/09/21 Status: Ordered folic acid 0.4 mg oral tablet 1 tablet = 0.4 mg, By Mouth, Daily, # 100 tablet, 3 Refills, Maintenance, 06/26/21 16:54:00 EST, Tablet, [facility] #[id number], Partial fill upon patient request if the prescription is for a schedule II opioid drug., 158, cm, 06/24/21 9:16:00 ES... Start Date: 06/26/21 Status: Ordered levothyroxine 150 mcg (0.15 mg) oral tablet 1 tablet = 150 mcg, By Mouth, Daily, # 60 tablet, 1 Refills, Maintenance, 02/17/21 13:28:00 EDT, Tablet, [facility] #[id number], Partial fill upon patient request if the prescription is for a schedule II opioid drug., 158, cm, 12/06/20 8:28:00 ED... Start Date: 02/17/21 Status: Ordered metFORMIN 500 mg oral tablet, extended release 3 tablet = 1,500 mg, By Mouth, Daily, with evening meal, # 90 tablet, 11 Refills, Maintenance, 01/31/20 11:39:00 EDT, [facility] #[id number], 158, cm, 01/29/20 13:44:00 EDT, Height, 88.2, [...] By Mouth, Every 6 hours, PRN, # 10 tablet, Refills 0, Tot. Refills 0, Maintenance,for pain, 07/17/21 16:04:00 EST, Route to Pharmacy Electronically, [facility] #[id number], Partial fill upon patient request, 158, cm, 06/24/21 9:... Start Date: 07/17/21 Status: Ordered ProAir HFA 90 mcg/inh inhalation [...] 05/26/21 11:44:00 EST, Route to Pharmacy Electronically, [facility] #[id number], Partial fill upon patientrequest if the prescription is for a schedule II op... Start Date: 05/26/21 Stop Date: 06/05/21 Status: Ordered Provera 10 mg oral tablet 10 mg, 1, tablet, By Mouth, Daily, # 7 tablet, Refills 0, Tot. Refills 0, Maintenance, 02/17/21 13:23:00 EDT, Route to Pharmacy Electronically, [facility] #[id number], Partial fill upon patient request if the prescription is for a schedule II opi... Start Date: 02/17/21 Stop Date: 02/24/21 Status: Ordered Valium 5 mg oral tablet 5 mg, 1, tablet, By Mouth, inbound call center representative to Procedure, May need to repeat!, # 2 tablet, Refills 0, Tot. Refills 0, Maintenance, 06/25/21 10:29:00 EST, Route to Pharmacy Electronically, [facility]#[id number], Partial fill upon patient request if the pr... Start Date: 06/25/21 Status: Ordered Vivelle-Dot 0.1 mg/24 hours twice weekly transdermal film, extended release See Instructions, Place 1 patch on day 1-4 then 2 patches on day 5-10 and then 4 patches on day 11-14 changing patches QOD., # 8 patch, 1 Refills, Maintenance, 06/10/21 14:42:00 EST, [facility] #[id number], Partial fill upon patient request if t... Start Date: 06/10/21 Status: Ordered Zofran 4 mg oral tablet 1 tablet = 4 mg, By Mouth, Every 8 hours, PRN as needed for nausea/vomiting, # 20 tablet, 0 Refills, Maintenance, 08/05/21 17:23:00 EST, Tablet, [facility] #[id number], Partial fill upon patientrequest if the prescription is for a schedule II op... Start Date: 08/05/21 Status: Ordered Problem List Condition Effective Dates Status Health Status Inform ant Asthma(Confirmed) Active Chronic endometritis(Confirmed) Active Hypothyroidism(Confirmed) Active Infertility, Female, Associa aptrice with Anovulation(Confirmed) Active Menorrhagia(Confirmed) Active Obese class II(Confirmed) Active PCOS - Polycystic ovarian syndrome(Confirmed) Active Suprapubic abdominal pain(Confirmed) Active Social History Social History Type Response Smoking Status Never smoker; Tobacc o user in household: No entered on: 12/24/15 Sex
--- OUTSIDE RECORDS SUMMARY | 2024-04-10 10:50 | XMS_ITS | Continuity of Care Document ---
Author Organization [facility] Address [address] [place] [address]- Care Team Providers Care Psych Nurse Name Role Phone Kaylah SNOW, Mariposa Cassidy Primary Care Physician Encounter [facility] [place] Date(s): 08/20/22 - 09/19/22 [facility] [address] [place] [id number] Allergies, Adverse Reactions, Alerts Substance Reaction Severity [...] 0 Refills, Maintenance, 03/05/22 22:26:00 EDT, Capsule, [facility] #[id number], Partial fill upon patient request if the prescription is for a schedule II opioid dr... Start Date: 03/05/22 Status: Ordered aspirin 81 mg oral tablet, chewable 162 mg, 2, tablet, Chew, Daily, # 60 tablet, Refills 8, Tot. Refills 8, Maintenance, 08/26/21 11:37:00 EST, Route to Pharmacy Electronically, [facility] #[id number], Partial fill upon patient request if the prescription is for a schedule II opioi... Start Date: 08/26/21 Status: Ordered Colace sodium 100 mg oral capsule 100 mg, 1, capsule, By Mouth, 2 times a day, PRN, # 20 capsule, Refills 0, Tot. Refills 0, Maintenance, for constipation, 03/05/22 22:26:00 EDT, Route to Pharmacy Electronically, [facility][id number], Partial fill upon patient request if the pr... Start Date: 03/05/22 Status: Ordered ibuprofen 600 mg oral tablet 600 mg, 1, tablet, By Mouth, Every 6 hours, # 50 tablet, Refills 0, Tot. Refills 0, Maintenance, 03/05/22 22:26:00 EDT, Route to Pharmacy Electronically, [facility] #[id number], Partial fill upon patient request if the prescription is for a sched... Start Date: 03/05/22 Status: Ordered levothyroxine 150 mcg (0.15 mg) oral tablet 1 tablet = 150 mcg, By Mouth, Daily, # 30 tablet, 11 Refills, Maintenance, 08/21/22 11:04:00 EST, Tablet, [facility] #[id number], Partial fill upon patient request if the prescription is for a schedule II opioid drug., 158, cm, 04/10/22 11:14:00... Start Date: 08/21/22 Status: Ordered Mirena 52 mg intrauterine device 1 each = 52 mg, Intrauterine, Once, # 1 each, 0 Refills, Soft Stop, 04/09/22 10:41:00 EDT, [facility], Partial fill upon patient request if the prescription is for a schedule II opioid drug., 158, cm, 03/19/22 15:29:00 EDT, Height, 90... Start Date: 04/09/22 Status: Ordered oxyCODONE 5 mg oral tablet 10 mg, 2, tablet, By Mouth, Every 6 hours, PRN, # 12 tablet, Refills 0, Tot. Refills 0, Maintenance, for pain, 03/05/22 22:26:00 EDT, Route to Pharmacy Electronically, [facility] #[id number], Partial fill upon patient request if the [...] 0 Refills, Maintenance, 03/05/22 22:26:00 EDT,Chew Tablet, [facility] #[id number], Partial fill upon patient request if the prescription is for a schedule II opioid drug., 158, cm, 03/05/22 20... Start Date: 03/05/22 Status: Ordered Zoloft 25 mg oral tablet 1 tablet = 25 mg, By Mouth, Daily, 1 tablet orally daily x1 week, then increase to 2 tablets a day,# 30 tablet, 0 Refills, Maintenance, 04/10/22 11:20:00 EDT, Tablet, [facility] #[id number], Partial fill upon patient request if the [...] on: 08/25/21 Sex Patient Care team information Care Team Personnel Name: Vidya Lobo RN Position: Sarita THOMAS RN Member Role: Primary Care Nurse Name: Joy Herron RN Position: S RN Member Role: Primary Care Nurse Name: Mariposa Adrian NP Position: Reference Physician Member Role: PCP Address: Address: [address] [place] [address]- Care Team Related Persons Name: POLO MANRIQUEZ Address: home [address] [place] [address] Name: MAGUI MANRIQUEZ Address: [id number] Address: home [address] [facility] [place] [address] [place] Name: ALCIDES WARNER Address: home [address] [place] [address] [place] [address]
--- OUTSIDE RECORDS SUMMARY | 2024-04-10 10:50 | XMS_ITS | Continuity of Care Document ---
Author Organization [facility] Address Unknown Care Team Providers Care Intellectual Property Counsel Name Role Phone Kaylah SNOW, Mariposa Cassidy Primary Care Physician Encounter [facility] [place] Date(s): 02/07/21 - 03/09/21 [facility] Allergies, Adverse Reactions, Alerts [...] tablet, 11 Refills, Maintenance, 07/05/20 10:24:00 EST, [facility] #[id number], Partial fill upon patient request if the prescription is for a schedule II opioid drug., 1 tablet By Mouth Daily, 158, cm, 05/02/20 14... Start Date: 07/05/20 Status: Ordered levothyroxine 150 mcg (0.15 mg) oral tablet 1 tablet = 150 mcg, By Mouth, Daily, # 60 tablet, 1 Refills, Maintenance, 02/17/21 13:28:00 EDT, Tablet, [facility] #[id number], Partial fill upon patient request if the prescription is for a schedule II opioid drug., 158, cm, 12/06/20 8:28:00 ED... Start Date: 02/17/21 Status: Ordered metFORMIN 500 mg oral tablet, extended release 3 tablet = 1,500 mg, By Mouth, Daily, with evening meal, # 90 tablet, 11 Refills, Maintenance, 01/31/20 11:39:00 EDT, [facility] #[id number], 158, cm, 01/29/20 13:44:00 EDT, Height, 88.2, [...] 02/17/21 13:23:00 EDT, Route to Pharmacy Electronically, [facility] #[id number], Partial fill upon patient request if the [...]
--- OUTSIDE RECORDS SUMMARY | 2024-04-10 10:50 | XMS_ITS | Continuity of Care Document ---
Author Organization [facility] Address [address], [address] [place] [address]- Care Team Providers Care Sausage Machine Operator Name Role Phone Kaylah SNOW, Mariposa Cassidy Primary Care Physician [place] [facility] [place] 01/28/21 - 02/27/21 [facility] [address], 4th [address] [place] [address]- Allergies, Adverse Reactions, Alerts Substance Reaction Severity [...] tablet, 11 Refills, Maintenance, 07/05/20 10:24:00 EST, [facility] #[id number], Partial fill upon patient request if the prescription is for a schedule II opioid drug., 1 tablet By Mouth Daily, 158, cm, 05/02/20 14... Start Date: 07/05/20 Status: Ordered levothyroxine 150 mcg (0.15 mg) oral tablet 1 tablet = 150 mcg, By Mouth, Daily, # 60 tablet, 1 Refills, Maintenance, 02/17/21 13:28:00 EDT, Tablet, [facility] #[id number], Partial fill upon patient request if the prescription is for a schedule II opioid drug., 158, cm, 12/06/20 8:28:00 ED... Start Date: 02/17/21 Status: Ordered metFORMIN 500 mg oral tablet, extended release 3 tablet = 1,500 mg, By Mouth, Daily, with evening meal, # 90 tablet, 11 Refills, Maintenance, 01/31/20 11:39:00 EDT, [facility] #[id number], 158, cm, 01/29/20 13:44:00 EDT, Height, 88.2, [...] 02/17/21 13:23:00 EDT, Route to Pharmacy Electronically, [facility] #[id number], Partial fill upon patient request if the [...]
--- OUTSIDE RECORDS SUMMARY | 2024-04-10 10:50 | XMS_ITS | Continuity of Care Document ---
Author Organization [facility] [employer] [facility] Address [address] [place] [address], [address] [place] [address]- Care Team Providers Care Taste Tester Name Role Phone Kaylah SNOW, Mariposa Cassidy Primary Care Physician [phone] Encounter [facility] ACCT R [id number] Date(s): 12/26/21 - 04/18/22 [facility] [employer] [facility] [address], 4th [place] [address]- Attending Physician: Ivonne Fields MD Referring Physician: Yong REYES, Sofía Staley Allergies, Adverse Reactions, Alerts Substance Reaction Severity Status codeine red itchy Active morphine Active Adhesive Bandage 1 Active shellfish throat swells Active aspirin red itchy Active 1rash Immunizations Given and Recorded Vaccine Date Status Refusal Reason tetanus/diphtheria/pertussis, acel(Tdap) 12/26/21 Given tetanus/diphtheria/pertussis, acel(Tdap) 1 08/02/12 Given 1Admin Note: VIS given, 08/11/2011 Medications acetaminophen 325 mg oral capsule 2 capsule = 650 mg, By Mouth, Every 4 hours, PRN as needed for pain, # 50 tablet, 0 Refills, Maintenance, 03/05/22 22:26:00 EDT, Capsule, [facility] #[id number], Partial fill upon patient request if the prescription is for a schedule II opioid . Start Date: 03/05/22 Status: Ordered aspirin 81 mg oral tablet, chewable 162 mg, 2, tablet, Chew, Daily, # 60 tablet, Refills 8, Tot. Refills 8, Maintenance, 08/26/21 11:37:00 EST, Route to Pharmacy Electronically, [facility] #[id number], Partial fill upon patient request if the prescription is for a schedule II opioi... Start Date: 08/26/21 Status: Ordered Colace sodium 100 mg oral capsule 100 mg, 1, capsule, By Mouth, 2 times a day, PRN, # 20 capsule, Refills 0, Tot. Refills 0, Maintenance, for constipation, 03/05/22 22:26:00 EDT, Route to Pharmacy Electronically, [facility][id number], Partial fill upon patient request if the pr... Start Date: 03/05/22 Status: Ordered ibuprofen 600 mg oral tablet 600 mg, 1, tablet, By Mouth, Every 6 hours, # 50 tablet, Refills 0, Tot. Refills 0, Maintenance, 03/05/22 22:26:00 EDT, Route to Pharmacy Electronically, [facility] #[id number], Partial fill upon patient request if the [...] 0 Refills, Soft Stop, 04/09/22 10:41:00 EDT, [facility], Partial fill upon patient request if the prescription is for a schedule II opioid drug., 158, cm, 03/19/22 15:29:00 EDT, Height, 90... Start Date: 04/09/22 Status: Ordered oxyCODONE 5 mg oral tablet 10 mg, 2, tablet, By Mouth, Every 6 hours, PRN, # 12 tablet, Refills 0, Tot. Refills 0, Maintenance, for pain, 03/05/22 22:26:00 EDT, Route to Pharmacy Electronically, [facility] #[id number], Partial fill upon patient request if the [...] 0 Refills, Maintenance, 03/05/22 22:26:00 EDT,Chew Tablet, [facility] #[id number], Partial fill upon patient request if the prescription is for a schedule II opioid drug., 158, cm, 03/05/22 20... Start Date: 03/05/22 Status: Ordered Zoloft 25 mg oral tablet 1 tablet = 25 mg, By Mouth, Daily, 1 tablet orally daily x1 week, then increase to 2 tablets a day,# 30 tablet, 0 Refills, Maintenance, 04/10/22 11:20:00 EDT, Tablet, [facility] #[id number], Partial fill upon patient request if the [...] Name: Mariposa Adrian NP Address: Address: [address], [place] [address]
--- OUTSIDE RECORDS SUMMARY | 2024-04-10 10:50 | XMS_ITS | Continuity of Care Document ---
Author Organization [facility] Address [address] [place] [address], [address] [place] [address]- Care Team Providers Care Construction Laborer Name Role Phone Mason Rinaldi MD Primary Care Physician [phone] Encounter [facility] Date(s): 12/18/20 - 01/17/21 [facility] [address], 4th [address] [place] [address]- Allergies, Adverse Reactions, Alerts Substance Reaction Severity [...] tablet, 11 Refills, Maintenance, 07/05/20 10:24:00 EST, [facility] #[id number], Partial fill upon patient request if the prescription is for a schedule II opioid drug., 1 tablet By Mouth Daily, 158, cm, 05/02/20 14... Start Date: 07/05/20 Status: Ordered metFORMIN 500 mg oral tablet, extended release 3 tablet = 1,500 mg, By Mouth, Daily, with evening meal, # 90 tablet, 11 Refills, Maintenance, 01/31/20 11:39:00 EDT, [facility] #[id number], 158, cm, 01/29/20 13:44:00 EDT, Height, 88.2, [...] Refills, Maintenance, 12/20/20 10:39:00 EDT, [facility], Partial fill upon patient request if the prescription is for a schedule II opioid drug., 158, cm, ... Start Date: 12/20/20 Status: Ordered Synthroid 0.175 mg oral tablet 1 tablet, By Mouth, Daily, # 90 tablet, 3 Refills, Maintenance, 11/05/20 12:07:00 EDT, [facility] #[id number], 158, cm, 05/02/20 14:32:00 EDT, Height, 87.5, kg, 05/27/20 2:26:00 EST, Dry Weight Start Date: 11/05/20 Status: Ordered Problem List Condition Effective Dates [...]
--- OUTSIDE RECORDS SUMMARY | 2024-04-10 10:50 | XMS_ITS | Continuity of Care Document ---
Author Organization [facility] Address [address] [place] [address], [address]t [address] [place] [address]- Care Team Providers Care Mill Labor Supervisor Name Role Phone Mason Rinaldi MD Primary Care Physician Encounter [facility] Date(s): 02/01/20 - 02/08/20 [facility] Reproductive Medicine [address] [facility] [facility], 4th [address] [place] [address]- [facility] Attending Physician: Not on Staff, Attending MD Referring Physician: Deidra Luong MD Allergies, Adverse Reactions, [...] 5, Maintenance, use to give novarel injection, 01/17/20 14:56:00 EDT, Compound, 158, cm, 09/22/19 13:02:00 EST, Height, 88.2, kg,01/09/19 16:14:00 EDT, Dry Weight Start Date: 01/17/20 Status: Ordered 3 cc syringe with 22g 1 1/2 needles 3 cc syringe with 22g 1 1/2 needles, See Instructions, # 2 each, Refills 5, Tot. Refills 5, Maintenance, use to mix novarel, 01/17/20 14:56:00 EDT, Compound, 158, cm, 09/22/19 13:02:00 EST, Height, 88.2, kg, 01/09/19 16:14:00 EDT, Dry Weight Start Date: 01/17/20 Status: Ordered Apri 0.15 mg-0.03 mg oral tablet 1 tablet, By Mouth, Daily, 1 active tablet daily on day 1 of period, take 21 days of active tablets,skip placebos start the next pack, # 2 pack/packet, 3 Refills, Maintenance, 01/12/20 17:03:00 EDT,[facility] #[id number], 1 tablet By Mouth Piedad... Start Date: 01/12/20 Status: Ordered Cetrotide 0.25 mg subcutaneous injection See Instructions, use 0.25 mg daily when instructed, # 4 each, 5 Refills, Maintenance, 01/17/20 14:56:00 EDT, [facility], 158, cm, 09/22/19 13:02:00 EST, Height, 88.2, kg, 01/09/19 16:14:00 EDT, Dry Weight Start Date: 01/17/20 Status: Ordered doxycycline hyclate 100 mg oral tablet 1 tablet = 100 mg, By Mouth, 2 times a day, # 28 tablet, 5 Refills, Maintenance, 01/17/20 14:57:00 EDT, [facility], 158, cm, 09/22/19 13:02:00 EST, Height, 88.2, kg, 01/09/19 16:14:00 EDT, Dry Weight Start Date: 01/17/20 Status: Ordered Gonal-F 1050 units subcutaneous injection 225 IU, Subcutaneous Infusion, Daily, # 3 kit, 5 Refills, Maintenance, 01/17/20 14:56:00 EDT, [facility], 225 IU Subcutaneous Infusion Daily, 158, cm, 09/22/19 13:02:00 EST, Height, 88.2,kg, 01/09/19 16:14:00 EDT, Dry Weight Start Date: 01/17/20 Status: Ordered leuprolide 5 mg/mL subcutaneous solution See Instructions, 40 units x 1 when directed, # 1 kit, 5 Refills, Maintenance, 01/17/20 14:56:00 EDT, [facility], 158, cm, 09/22/19 13:02:00 EST, Height, 88.2, kg, 01/09/19 16:14:00 EDT, Dry Weight Start Date: 01/17/20 Status: Ordered levothyroxine 150 mcg (0.15 mg) oral tablet 1 tablet = 150 mcg, By Mouth, Daily, take 150 mcg , 1 pill 6 days a week and 0.5 pill , once a week, # 60 tablet, 0 Refills, Maintenance, 12/27/19 10:14:00 EDT, Tablet, [facility] #[id number], labs needed prior to next refill, 158, cm, 09/22/19 1... Start Date: 12/27/19 Status: Ordered levothyroxine 175 mcg (0.175 mg) oral tablet 1 tablet = 175 mcg, By Mouth, Daily, # 30 tablet, 3 Refills, Maintenance, 02/01/20 13:20:00 EDT, Tablet, [facility] #[id number], 158, cm, 01/29/20 13:44:00 EDT, Height, 88.2, kg, 01/09/19 16:14:00 EDT, Dry Weight Start Date: 02/01/20 Status: Ordered Menopur 75 intl units subcutaneous injection = 75 International_Units, Subcutaneous Infusion, Daily, # 12 each, 5 Refills, Maintenance, 01/16/2014:57:00 EDT, [facility], 158, cm, 09/22/19 13:02:00 EST, Height, 88.2, kg, 01/09/19 16:14:00 EDT, Dry Weight Start Date: 01/17/20 Status: Ordered metFORMIN 500 mg oral tablet, extended release 3 tablet = 1,500 mg, By Mouth, Daily, with evening meal, # 90 tablet, 11 Refills, Maintenance, 01/31/20 11:39:00 EDT, [facility] #[id number], 158, cm, 01/29/20 13:44:00 EDT, Height, 88.2, kg, 01/09/19 16:14:00 EDT, Dry Weight Start Date: 01/31/20 Stop Date: 01/25/21 Status: Ordered Novarel 5000 units intramuscular injection = 1,000 units, Subcutaneous Injection, Once, take x 1 when directed, # 1 each, 5 Refills, Soft Stop, 01/17/20 14:57:00 EDT, [facility], 158, cm, 09/22/19 13:02:00 EST, Height, 88.2, kg, 01/09/19 16:14:00 EDT, Dry Weight Start Date: 01/17/20 Status: Ordered omeprazole 20 mg oral enteric [...] 6 Refills, Maintenance, 02/05/20 15:13:00 EDT, Tablet, [facility] #[id number], 158, cm, 01/29/20 13:44:00 EDT, Height, 88.2, [...]
--- OUTSIDE RECORDS SUMMARY | 2024-04-10 10:50 | XMS_ITS | Continuity of Care Document ---
Author Organization [facility] [employer] [facility] Address [address] [place] [address], [address] [place] [address]- Care Team Providers Care Convention Planner Name Role Phone Kaylah SNOW, Mariposa Cassidy Primary Care Physician [phone] [id number] - 09[facility]01/21 [facility] [employer] [address], 4th [place] [address]- Attending Physician: Sofía Beach MD Referring Physician: Lee Ann Stephens MD [...] 08/26/21 11:37:00 EST, Route to Pharmacy Electronically, [facility] #[id number], Partial fill upon patient request if the prescription is for a schedule II opioi... Start Date: 08/26/21 Status: Ordered bisacodyl 10 mg rectal suppository 1 supp = 10 mg, Rectally, Daily, PRN for constipation, # 10 supp, 0 Refills, Maintenance, 08/10/21 18:57:00 EST, Suppository, [facility]/pharmacy #[id number], Partial fill upon patient request if the [...] Refills, Maintenance, 08/26/21 11:31:00 EST, CR Tablet, [facility] #[id number], Partial fill upon patient request if the [...] patch, 5 Refills, Maintenance, 06/09/21 18:36:00 EST, [facility] #[id number], Partial fill upon patient request if the prescription is for a schedule II opioid drug., 1 patch Topically, 158, cm, 12/06/20 8... Start Date: 06/09/21 Status: Ordered folic acid 0.4 mg oral tablet 1 tablet = 0.4 mg, By Mouth, Daily, # 100 tablet, 3 Refills, Maintenance, 06/26/21 16:54:00 EST, Tablet, [facility] #[id number], Partial fill upon patient request if the prescription is for a schedule II opioid drug., 158, cm, 06/24/21 9:16:00 ES... Start Date: 06/26/21 Status: Ordered levothyroxine 150 mcg (0.15 mg) oral tablet 1 tablet = 150 mcg, By Mouth, Daily, # 60 tablet, 1 Refills, Maintenance, 02/17/21 13:28:00 EDT, Tablet, [facility] #[id number], Partial fill upon patient request if the [...] 1 Refills, Maintenance, 08/10/21 18:58:00 EST, Tablet, [facility]/pharmacy #[id number], Partial fill upon patient request if the prescription is for a schedule II opioid drug., 158, cm,... Start Date: 08/10/21 Status: Ordered triamcinolone 0.025% topical ointment 1 application, Topically, 2 times a day, for 14 days, # 15 Gm, 0 Refills, Acute 09/09/21 11:35:00 EST, 08/26/21 11:35:00 EST, Ointment, [facility] #[id number], Partial fill upon patient request if the [...] patch, 1 Refills, Maintenance, 06/10/21 14:42:00 EST, [facility] #[id number], Partial fill upon patient request if t... Start Date: 06/10/21 Status: Ordered Zofran 4 mg oral tablet 1 tablet = 4 mg, By Mouth, Every 8 hours, PRN as needed for nausea/vomiting, # 20 tablet, 0 Refills, Maintenance, 08/05/21 17:23:00 EST, Tablet, [facility] #[id number], Partial fill upon patientrequest if the prescription is for a schedule II op... Start Date: 08/05/21 Status: Ordered Zofran 8 mg oral tablet 1 tablet = 8 mg, By Mouth, 2 times a day, # 20 tablet, 0 Refills, Acute 08/27/22 11:32:00 EST, 08/26/21 11:31:00 EST, Tablet, [facility] #[id number], Partial fill upon patient request if the [...] ovarian syndrome)(Confirmed) Active Suprapubic abdominal pain(Confirmed) Active Vital Signs Most recent to oldest [Reference Range]: 1 Height 158 cm (08/25/21 2:02 PM) Social History Social History Type Response Smoking Status Never (less than 100 in lifetime) entered on: 08/25/21 Sex
--- OUTSIDE RECORDS SUMMARY | 2024-04-10 10:50 | XMS_ITS | Continuity of Care Document ---
Author Organization [facility] Address [address] [place] [address], [address] [place] [address]- Care Team Providers Care Clinical Coder Name Role Phone Mason Rinaldi MD Primary Care Physician Encounter [facility] Date(s): 11/26/20 - 12/26/20 [facility] Rep[facility] [address] [facility], 4th [address] [place] [address]- Allergies, Adverse Reactions, Alerts Substance Reaction Severity [...] tablet, 11 Refills, Maintenance, 07/05/20 10:24:00 EST, [facility] #[id number], Partial fill upon patient request if the prescription is for a schedule II opioid drug., 1 tablet By Mouth Daily, 158, cm, 05/02/20 14... Start Date: 07/05/20 Status: Ordered metFORMIN 500 mg oral tablet, extended release 3 tablet = 1,500 mg, By Mouth, Daily, with evening meal, # 90 tablet, 11 Refills, Maintenance, 01/31/20 11:39:00 EDT, [facility] #[id number], 158, cm, 01/29/20 13:44:00 EDT, Height, 88.2, [...] capsule, 5 Refills, Maintenance, 12/20/20 10:39:00 EDT, [facility], Partial fill upon patient request if the prescription is for a schedule II opioid drug., 158, cm, ... Start Date: 12/20/20 Status: Ordered Synthroid 0.175 mg oral tablet 1 tablet, By Mouth, Daily, # 90 tablet, 3 Refills, Maintenance, 11/05/20 12:07:00 EDT, [email or web address] #[id number], 158, cm, 05/02/20 14:32:00 EDT, Height, 87.5, [...]
--- OUTSIDE RECORDS SUMMARY | 2024-04-10 10:50 | XMS_ITS | Continuity of Care Document ---
Author Organization [facility] ter Address [address] [place] [address]- Care Team Providers Care Software Systems Architect Name Role Phone Kaylah SNOW, Mariposa Cassidy Primary Care Physician Encounter [facility] Date(s): 02/10/24 - 02/10/[address] [address] Discharge Disposition: A-D/C Home Attending Physician: Tyler (WAD LUBRICATOR) Grey REYES Admitting Physician: Tyler (WAD LUBRICATOR) Grey REYES Referring Physician: Tyler McgillWAD LUBRICATOR) Grey REYES Allergies, Adverse Reactions, Alerts Substance Reaction Severity Status codeine red itchy Active aspirin red itchy Active morphine rash Active shellfish throat swells Active Adhesive Bandage 1 Active 1rash Immunizations Given and Recorded Vaccine Date Status Refusal Reason tetanus/diphtheria/pertussis, acel(Tdap) 12/26/21 Given tetanus/diphtheria/pertussis, acel(Tdap) 1 08/02/12 Given SARS-CoV-2 (COVID-19) mRNA BNT-162b2 vac 06/05/21 Recorded SARS-CoV-2 (COVID-19) mRNA BNT-162b2 vac 09/23/20 Recorded SARS-CoV-2 (COVID-19) mRNA BNT-162b2 vac 09/02/20 Recorded 1Admin Note: VIS given, 08/11/2011 Medications acetaminophen 325 mg oral tablet 975 mg, 3, tablet, By Mouth, Every 6 hours, # 50 tablet, Refills 0, Tot. Refills 0, Maintenance, 02/10/24 12:08:00 EDT, Route to Pharmacy Electronically, [facility] #[id number], Partial fill upon patient request if the prescription is for a sched... Start Date: 02/10/24 Status: Ordered ibuprofen 600 mg oral tablet 600 mg, 1, tablet, By Mouth, Every 6 hours, PRN, # 30 tablet, Refills 0, Tot. Refills 0, Maintenance, Pain , Mild, 02/10/24 12:07:00 EDT, Route to Pharmacy Electronically, [facility] #[id number], Partial fill upon patient request if the prescript... Start Date: 02/10/24 Status: Ordered levothyroxine 150 mcg (0.15 mg) oral tablet 1 tablet = 150 mcg, By Mouth, Daily, # 30 tablet, 2 Refills, Maintenance, 09/17/23 15:00:00 EST, Tablet, [facility] #[id number], Partial fill upon patient request if the prescription is for a schedule II opioid drug., 158, cm, 04/10/22 11:14:00 E... Start Date: 09/17/23 Status: Ordered MiraLax oral powder for reconstitution = 17 Gm, By Mouth, Daily, dissolve in water before taking, # 255 Gm, 0 Refills, Maintenance, 02/10/24 12:07:00 EDT, REC Powder, [facility] #[id number], Partial fill upon patient request if the prescription is for a schedule II opioid drug., 17 Gm... Start Date: 02/10/24 Status: Ordered oxyCODONE 5 mg oral tablet 5 mg, 1, tablet, By Mouth, Every 6 hours, PRN, # 7 tablet, Refills 0, Tot. Refills 0, Maintenance, as needed for pain, 02/10/24 12:06:00 EDT, Route to Pharmacy Electronically, [facility] #[id number], Partial fill upon patient request if the presc... Start Date: 02/10/24 Status: Ordered Senna 8.6 mg oral tablet 8.6 mg, 1, tablet, By Mouth, Daily at bedtime, # 28 tablet, Refills 0, Tot. Refills 0, Maintenance,02/10/24 12:07:00 EDT, Route to Pharmacy Electronically, [facility] #[id number], Partial fill upon patient request if the prescription is for a sc... Start Date: 02/10/24 Status: Ordered simethicone 125 mg oral capsule 1 capsule = 125 mg, By Mouth, 4 times a day, PRN Gas, # 30 capsule, 0 Refills, Maintenance, 02/10/24 12:09:00 EDT, Capsule, [facility] #[id number], Partial fill upon patient request if the prescription is for a schedule II opioid drug., 158, cm,... Start Date: 02/10/24 Status: Ordered Problem List Condition Confirmation Course Effective Dates Status H ealth Status Informant Abnormal uterine bleeding Confirmed Active Asthma Confirmed Active Left ovarian cyst Confirmed Active History of depression Confirmed Active Hypothyroidism Confirmed Active Obese class II Confirmed Active PCOS - Polycystic ovarian syndrome Confirmed Active PCOS (polycystic ovarian syndrome) Confirmed Active Last Pap smear 08/26/21 negative with negative HPV Confirmed Active Vital Signs Most recent to oldest [Reference Range]: 1 2 3 Height 158 cm (02/10/24 8:31 AM) 158 cm (02/01/24 2:15 PM) Weight 89.8 kg (02/10/24 8:31 AM) 89.5 kg (02/01/24 2:15 PM) Oxygen Saturation [94-100 %] 96 % (02/10/24 5:00 PM) 95 % (02/10/24 4:30 PM) 95 % (02/10/24 4:00 PM) Pulse Rate [55-90 bpm] 71 bpm (02/10/24 8:31 AM) Body Mass Index [18.5-24.99 kg/m2] 35.97 kg/m2 *>HHI* (02/10/24 8:31 AM) 35.85 kg/m2 *>HHI* (02/01/24 2:15 PM) Blood Pressure [90-138/55-84 mm Hg] 114/78mm Hg (02/10/24 5:00 PM) 115/66mm Hg (02/10/24 4:30 PM) 122/90mm Hg (02/10/24 4:00 PM) Respiratory Rate [16-30 br/min] 16 br/min (02/10/24 5:00 PM) 14 br/min *L* (02/10/24 4:30 PM) 13 br/min *L* (02/10/24 4:00 PM) Temperature [96.8-100.4 DegF] 97.7 DegF (02/10/24 12:00 PM) 97.7 DegF (02/10/24 8:31 AM) Liters per Minute 2 L/min (02/10/24 12:30 PM) 6 L/min (02/10/24 12:15 PM) 6 L/min (02/10/24 12:00 PM) Mode of Delivery (Oxygen) Nasal cannula (02/10/24 12:30 PM) Simple face mask (02/10/24 12:15 PM) Simple face mask (02/10/24 12:00 PM) Blood pressure sites Arm, right (02/10/24 12:15 PM) Arm, right (02/10/24 12:00 PM) Arm, left (02/10/24 8:31 AM) Temperature Route Temporal (02/10/24 12:00 PM) Temporal (02/10/24 8:31 AM) Dry Weight 89.8 kg (02/10/24 8:31 AM) 89.5 kg (02/01/24 2:15 PM) Weight Obtained Via Standing scale (02/10/24 8:31 AM) Patient/family stated (02/01/24 2:15 PM) Dry Weight Obtained Via Standing scale (02/10/24 8:31 AM) Patient/family stated (02/01/24 2:15 PM) Social History Social History Type Response Smoking Status Never (less than 100 in lifetime) entered on: 08/25/21 Sex Female Note * Rao Bryant RN: PERFORM Event Display: Discharge/Transfer Note Hospital Authored Date: [id number] Nursing Discharge Note Entered On: 02/10/2024 17:33 EDT Performed On: 02/10/2024 17:33 EDT by Rao Bryant RN Nursing Discharge Note 2 Discharge Time : 02/10/2024 17:20 EDT Discharge Level of Care at Discharge : Home/Shelter/Foster Care Patient Left Unit Via : Wheelchair Patient Accompanied Off Unit with : Significant other DC Instructions Provided & Signed by Pt : Yes Patient Understands D/C Instructions : Yes Patient Instructions Discharge Signed : Yes Did Pt have Specialty Bed or Wound Vac : No Rao Bryant RN - 02/10/2024 17:33 EDT * Rao Bryant RN: PERFORM Event Display: Patient Education/Instruction Authored Date: [id number] Surgery Adult Discharge Instructions [address] [address] Name: JONATAN MANRQIUEZ : 1985?? Visit: 02/10/2024 07:28?? Current Date: 02/10/2024 16:47 ?? Account: [id number]?? Surgery Discharge Instructions We would like to thank you for allowing us to assist you with your healthcare needs. The following includes patient education materials and information regarding your injury/illness. Our entire staffstrives to provide an excellent experience for our patients and their families. PLEASE ENSURE YOU FOLLOW-UP PER THE INSTRUCTIONS BELOW! ?? YOUR OPINION IS IMPORTANT TO US! Please complete the survey you may receive by mail or email. Your feedback will be used to make improvements to the healthcare experiences of our patients and their families. Surveys are administered by [employer] ?? If further treatment with your primary care physician or another doctor is recommended, it is important for you to keep the appointment. Call your primary care physician or return to the Emergency Department immediately if your condition worsens, fails to improve, or new symptoms develop. If you need to find a doctor, you can call [facility] for a referral at [phone] or toll free at [phone]) or log in to [email or web address].. ?? [facility], in keeping with [facility] guidance, no longer requires face masks for staff, patientsor visitors in most situations. Similiar to time spent indoors at other locations, there is the chance that you were exposed to repiratory viruses during your time with us (such as flu or COVID-19). If you develop symptoms concerning for a viral respiratory infection, please seek testing (and treatment if indicated) from your medical provider or home test kit. ?? You can view and manage your care through the patient portal or by using a health care brisa of your choosing. [employer] is a website that allows you to securely view your medical information including your hospital discharge summary, office visit summaries, medications and follow-up visits. You can also request appointments, renew medications, and request access to your medical information using a health care brisa of your choosing, or just ask a question. You are entitled to know the individuals who participated in your treatment. This information is available within your medical record and will be provided upon your request. You can enroll at [email or web address] or register d uring your next office visit. You have been discharged from [facility], Patient Care Unit: PANU??. If you have any questions regarding these instructions after you leave, please call us and we will be happy to assist you. [facility] Your Care Team Attending Physician Tyler (WAD LUBRICATOR) Grey REYES?? Consulting Providers Tyler (WAD LUBRICATOR) Grey REYES?? Discharging Providers [place] Reason for Admission AUB PELVIC PAIN ROBOT [facility] BS CYSTECT DS [facility] Primary Care Provider Kaylah SNOW, Mariposa Cassidy? Advance Directive Health Care Proxy on File Yes - Health Care Proxy What to do next Instructions From Your Doctor Call your doctor if: you note fever of 100.4 or greater, heavy vaginal bleeding, foul-smelling vaginal discharge, difficulty or burning with urination, nausea and vomiting with inability to tolerate food, pain not controlled by your prescribed medications, redness/swelling/drainage at incision(s), shortness of breath or chest pain. ??- Do not drive while taking narcotics. Do not drive until cleared by your doctor. ??- Avoid lifting anything 15 lbs or greater until cleared by doctor. ??- Do not put anything in the vagina. No intercourse, tampons, or douching ??- Stairs are OK but avoid multiple trips and go slowly. ??- Walk as often as you are able. ??- Continue your stool softeners (examples:senna, miralax) until no longer taking narcotics and stools are regular. ??- Shower as usual 24 hours after surgery. Do not scrub the incision. Pat the skin dry. ??You may remove the bandage on the right side of your belly in the morning.?? No need to apply another bandage. ?? Orders? 02/10/24 12:06:00 EDT?? Scheduled Follow-Up Appointments Wednesday 11:40 AM EDT ?? With: Tyler (WAD LUBRICATOR) Grey REYES Where: [facility] [address] [place] [address]- Status: Pending Wednesday 11:40 AM EDT ?? With: Tyler (WAD LUBRICATOR) Grey REYES Where: [facility] [address] [place] [address]- Status: Pending You Need to Schedule the Following Appointments Follow Up with??Tyler (WAD LUBRICATOR) Grey REYES When:??Within 3-5 day: call to discuss follow up visit Where: [facility] [place] [address]- Discharge Medications JONATAN MANRIQUEZ :1985 Visit Date:02/10/2024 Medications: Please continue your medications until treatment is completed or stopped by your provider. You may resume your daily prescription medications. Discuss any questions related to medications with your provider. What How Much When Instructions Next Dose New Acetaminophen (acetaminophen 325 mg oral tablet) 3 tab(s) Oral Every 6 hours Pickup at [facility] #[id number] Anytime after 9:30pm aneudy, 02/10/24 New Ibuprofen (ibuprofen 600 mg oral tablet) 1 tab(s) Oral Every 6 hours as needed for Pain , Mild Pickup at [facility] #[id number] As needed New Oxycodone (oxyCODONE 5 mg oral tablet) 1 tab(s) Oral Every 6 hours as needed for as needed for pain Pickup at [facility] #[id number] As needed New Polyethylene Glycol 3350 (MiraLax oral powder for reconstitution) 17 gram Oral Daily dissolve in water before taking ?? Pickup at [facility] #[id number] Resume as prescribed New Senna (Senna 8.6 mg oral tablet) 1 tab(s) Oral Daily at Bedtime Pickup at [facility] #[id number] Resume as prescribed New Simethicone (simethicone 125 mg oral capsule) 1 capsule Oral 4 times a day as needed for Gas Pickup at [facility] #[id number] Resume as prescribed Unchanged Levothyroxine (levothyroxine 150 mcg (0.15 mg) oral tablet) 1 tab(s) Oral Daily Resume as prescribed Pharmacy Information [facility] #[id number]: [address], [place] [id number] [phone] Allergies (NKA means No Known Allergies) Adhesive Bandage aspirin??(red itchy) codeine??(red itchy) morphine??(rash) shellfish??(throat swells) Education Materials Below is the list of Educational Leaflet Providered with your Discharge Instructions. [employer] Patient Education - Surgery Medical Daystay Surgical Overnight Discharge Instructions?? Valuables and Belongings I fully understand and agree that [facility] accepts no responsibility for all my personal property including clothing, toilet articles, radios, jewelry, dentures, hearing aids, rings, money, or any other property that is in my possession or is brought to me after admission. I understand certain valuables may be placed in a hospital safe for a short period of time. I understand that the hospital is not liable for loss or damage due to accident, fire, or other natural occurrence while said property is in the safe. I accept full responsibility for any personal property that I keep with me, and will not hold the hospital responsible in case of loss or disappearance. I acknowledge that i have been encouraged to send valuables and belongings home. ? Other Discharge Information ? Pulmonary Rehab Status?? Pulmonary Rehab Discharge Status?? Respiratory Rate:??14 br/min??Low ? Common Emergency Awareness Tips IS IT A STROKE? Act FAST and Check for these signs: FACE Does the face look uneven? ARM Does one arm drift down? SPEECH Does their speech sound strange? TIME Call at any sign of stroke ?? Heart Attack Signs Chest discomfort: Most heart attacks involve discomfort in the center of the chest and lasts more than a few minutes, or goes away and comes back. It can feel like uncomfortable pressure, squeezing, fullness or pain. Discomfort in upper body: Symptoms can include pain or discomfort in one or both arms, back, neck, jaw or stomach. Shortness of breath: With or without discomfort. Other signs: Breaking out in a cold sweat, nausea, or lightheaded. Remember, MINUTES DO MATTER. If you experience any of these heart attack warning signs, call to get immediate medical attention! ?? Smoking can increase your chances of developing chronic health problems and can cause harmful effects to other family members in your house. If you smoke, you are strongly encouraged to quit. Please call [facility] Link at [phone] or [phone] Week [phone] ([phone]) or log in to [email or web address] for referrals to smoking cessation programs. ?? The National Suicide Prevention Hotline is available 08/02 if you or someone you know needs to find a reason to keep living. By calling 5-210-292-[employer] (6314) you'll be connected to a skilled, trained counselor at a crisis center in your area. SURGERY DISCHARGE INSTRUCTIONS SIGNATURE PAGE MANRIQUEZJONATAN Location:[facility] Registration Date and Time:02/10/2024 07:28 EDT Primary Care Physician: Mariposa Adrian NP, Attending Physician: Tyler (WAD LUBRICATOR) Grey REYES, I JONATAN MANRIQUEZ, have received the above patient education materials/instructions and have verbalizedunderstanding. If ambulance or transport services are being used I further acknowledge being given a choice of service. ?? If you need to contact me, please call me at this number: . Patient/Deckhand Name: Patient/Deckhand Signature: Relationship to Patient: Witness Name/Signature: Date: * Rao Bryant RN: PERFORM Event Display: Patient Education Leaflets Authored Date: [id number] Surgery Medical Daystay Surgical Overnight Discharge Instructions ?? 295 Medical Daystay/Surgical Overnight Discharge Instructions ? Since your coordination and judgment may be altered by medication and/or anesthesia, a responsible adult must drive you home from the hospital. ? If you have received medication for pain or sedation while under our care, you should not drive, operate machinery, drink alcohol, or sign any legal documents for 24 hours.?? You should have someone with you at home tonight. ? Remain at home the day of discharge.?? You may be up and about unless otherwise instructed by your physician. ? You may resume your daily prescription medication schedule.?? Any depressant medication should be avoided for 24 hours unless otherwise instructed by your surgeon or anesthesiologist. ? Call your physician for a follow-up appointment.? If you experience unusual or severe pain not relied by your pain medication, excessive bleedingor drainage, persistent nausea and vomiting, excessive swelling or redness, foul odor from incisionsite or fever over 100.6F, you need to call your physician. ? A follow-up phone call by a nurse will be made the day after your procedure.?? If you have stayed with us over night, you will not be receiving a follow-up phone call. ? Nausea and vomiting are a common side effect of prescription pain medication.?? We recommend that pills are not taken on an empty stomach.?? While taking any prescription pain medication you should not drive or drink alcohol. ? Patient Care team information Care Team Personnel Name: Vidya Lobo RN Position: [facility] RN Member Role: Primary Care Nurse Name: Joy Herron RN Position: [facility] Nurse Member Role: Primary Care Nurse Name: Mariposa Adrian NP Position: Reference Physician Member Role: PCP Address: Address: [address] [place] [address]- Care Team Related Persons Name: POLO MANRIQUEZ Address: home [address] [place] [address] Name: MAGUI MANRIQUEZ Address: [address] Address: home [address] [place] [address] Name: ALCIDES WARNER Address: [address] [address]
--- OUTSIDE RECORDS SUMMARY | 2024-04-10 10:50 | XMS_ITS | Continuity of Care Document ---
Author Organization [facility] Address [address] [place] [address]- Care Team Providers Care Shoe Patternmaker Name Role Phone Kaylah SNOW, Mariposa Cassidy Primary Care Physician [phone] Encounter [facility] Date(s): 09/17/23 - 10/17/23 [facility] [address] [place] [address]- Allergies, Adverse Reactions, Alerts Substance Reaction Severity [...] 2 Refills, Maintenance, 09/17/23 15:00:00 EST, Tablet, [facility] #[id number], Partial fill upon patient request if the [...] Personnel Name: Vidya Lobo RN Position: [facility] RN Member Role: Primary Care Nurse Name: Joy Herron RN Position: [facility] RN Member Role: Primary Care Nurse Name: Mariposa Adrian NP Position: Reference Physician Member Role: PCP Address: Address: [address] [place] [address]- Care Team Related Persons Name: POLO MANRIQUEZ Address: home [address] [place] [address] Name: MAGUI MANRIQUEZ Address: [address] Address: home [address] [place] [address] [place] Name: ALCIDES WARNER Address: [address] [address]
--- OUTSIDE RECORDS SUMMARY | 2024-04-10 10:50 | XMS_ITS | Continuity of Care Document ---
Author Organization [facility] Address [address] [place] [address]- Care Team Providers Care Lime Kiln Tender Name Role Phone Mason Rinaldi MD Primary Care Physician [place] [facility] [place] 08/27/20 - 09/26/20 [facility] [address] [place] [address]- Allergies, Adverse Reactions, Alerts Substance Reaction Severity [...] each, 0 Refills, Maintenance, 05/09/20 7:54:00 EDT, [facility], 158, cm, 05/02/20 14:32:00 EDT, Height, 88.2, kg, 01/09/19 16:14:00 EDT, Dry Weight Start Date: 05/09/20 Status: Ordered Folbic oral tablet 1 tablet, By Mouth, Daily, # 30 tablet, 11 Refills, Maintenance, 07/05/20 10:24:00 EST, [facility] #[id number], Partial fill upon patient request if the prescription is for a schedule II opioid drug., 1 tablet By Mouth Daily, 158, cm, 05/02/20 14... Start Date: 07/05/20 Status: Ordered metFORMIN 500 mg oral tablet, extended release 3 tablet = 1,500 mg, By Mouth, Daily, with evening meal, # 90 tablet, 11 Refills, Maintenance, 01/31/20 11:39:00 EDT, [facility] #[id number], 158, cm, 01/29/20 13:44:00 EDT, Height, 88.2, [...] 05/31/20 15:20:00 EST, Route to Pharmacy Electronically, [facility] #[id number], Partial fill upon patient request, 158, cm, [...] 6 Refills, Maintenance, 02/05/20 15:13:00 EDT, Tablet, [facility] #[id number], 158, cm, 01/29/20 13:44:00 EDT, Height, 88.2, kg, 01/09/19 16:14:00 EDT, Dry Weight Start Date: 02/05/20 Status: Ordered Zofran 8 mg oral tablet 1 tablet = 8 mg, By Mouth, Every 8 hours, PRN Nausea & Vomiting, # 10 tablet, 0 Refills, Maintenance, 05/31/20 11:44:00 EST, Tablet, [facility] #[id number], Partial fill upon patient request, 158, cm, [...]
--- OUTSIDE RECORDS SUMMARY | 2024-04-10 10:50 | XMS_ITS | Continuity of Care Document ---
Author Organization [employer] [facility] Address [address] [place] [address], [address] [place] [address]- Care Team Providers Care Cemetery Worker Name Role Phone Kaylah SNOW, Mariposa Cassidy Primary Care Physician [phone] [id number] Date(s): 12/26/21 - 03/28/22 [facility] [address] [place] [address], [address] [place] [address]- Attending Physician: Ivonne Fields MD Referring Physician: Sofía Beach MD Allergies, Adverse Reactions, Alerts Substance Reaction [...] 0 Refills, Maintenance, 03/05/22 22:26:00 EDT, Capsule, [facility] #[id number], Partial fill upon patient request if the prescription is for a schedule II opioid . Start Date: 03/05/22 Status: Ordered aspirin 81 mg oral tablet, chewable 162 mg, 2, tablet, Chew, Daily, # 60 tablet, Refills 8, Tot. Refills 8, Maintenance, 08/26/21 11:37:00 EST, Route to Pharmacy Electronically, [facility] #[id number], Partial fill upon patient request if the prescription is for a schedule II opioi... Start Date: 08/26/21 Status: Ordered Colace sodium 100 mg oral capsule 100 mg, 1, capsule, By Mouth, 2 times a day, PRN, # 20 capsule, Refills 0, Tot. Refills 0, Maintenance, for constipation, 03/05/22 22:26:00 EDT, Route to Pharmacy Electronically, [facility]#[id number], Partial fill upon patient request if the pr... Start Date: 03/05/22 Status: Ordered ibuprofen 600 mg oral tablet 600 mg, 1, tablet, By Mouth, Every 6 hours, # 50 tablet, Refills 0, Tot. Refills 0, Maintenance, 03/05/22 22:26:00 EDT, Route to Pharmacy Electronically, [facility] #[id number], Partial fill upon patient request if the prescription is for a sched... Start Date: 03/05/22 Status: Ordered levothyroxine 175 mcg (0.175 mg) oral tablet 1 tablet = 175 mcg, By Mouth, Daily, # 30 tablet, 0 Refills, Maintenance, 10/16/21 23:50:00 EDT, Tablet, Partial fill upon patient request if the prescription is for a schedule II opioid drug. Start Date: 10/16/21 Status: Ordered oxyCODONE 5 mg oral tablet 10 mg, 2, tablet, By Mouth, Every 6 hours, PRN, # 12 tablet, Refills 0, Tot. Refills 0, Maintenance, for pain, 03/05/22 22:26:00 EDT, Route to Pharmacy Electronically, [facility] #[id number], Partial fill upon patient request if the [...] 0 Refills, Maintenance, 03/05/22 22:26:00 EDT,[facility]w Tablet, [id number], Partial fill upon patient request if the prescription is for a schedule II opioid drug., 158, cm, 03/05/22 20... Start Date: 03/05/22 Status: Ordered Problem List Condition Effective Dates Status Health Status Inform ant Asthma(Confirmed) Active Breech presentation(Confirmed) Active Size > dates 39 cm at 32 weeks(Confirmed) Active History of depression(Confirmed) Active Hyperthyroidism(Confirmed) Active Hypothyroidism(Confirmed) Active Infertility, Female, Associa patrice with Anovulation(Confirmed) Active Menorrhagia(Confirmed) Active Obese class I(Confirmed) Active PCOS - Polycystic ovarian syndrome(Confirmed) Active PCOS (polycystic ovarian syndrome)(Confirmed) Active Suprapubic abdominal pain(Confirmed) Active Uterine scar from previous c esarean delivery(Confirmed) Active Social History Social History Type Response Smoking Status Never (less than 100 in lifetime) entered on: 08/25/21 Sex Care Team Personnel Name: Mariposa Adrian NP Address: [address] [place] [address]-
--- OUTSIDE RECORDS SUMMARY | 2024-04-10 10:50 | XMS_ITS | Continuity of Care Document ---
Author Organization [facility] Address [address] [place] [address], [address] [place] [address]- Care Team Providers Care Drain Cleaner Name Role Phone Kaylah SNOW, Mariposa Cassidy Primary Care Physician [id number] Date(s): 12/26/21 - 01/02/22 [facility] [address] [facility], [address] [place], [place] [address] Attending Physician: Yong REYES, Sofía Staley Allergies, Adverse Reactions, Alerts Substance Reaction Severity Status codeine red itchy Active Adhesive Bandage 1 Active shellfish throat swells Active aspirin red itchy Active morphine Active 1rash Immunizations Given and [...] 08/26/21 11:37:00 EST, Route to Pharmacy Electronically, [facility] #[id number], Partial fill upon patient request if the prescription is for a schedule II opioi... Start Date: 08/26/21 Status: Ordered bisacodyl 10 mg rectal suppository 1 supp = 10 mg, Rectally, Daily, PRN for constipation, # 10 supp, 0 Refills, Maintenance, 08/10/21 18:57:00 EST, Suppository, [facility]/pharmacy #[id number], Partial fill upon patient request if the prescriptionis for a schedule II opioid drug., 158, cm, ... Start Date: 08/10/21 Status: Ordered clotrimazole 1% topical cream 1 application, Topically, 2 times a day, # 15 Gm, 0 Refills, Maintenance, 10/03/21 9:22:00 EDT, Cream, [facility]/pharmacy #[id number], Partial fill upon patient request [...] 10/21/21 13:22:00 EDT, Route to Pharmacy Electronically, [facility] #[id number], Partial fill upon patient request if the [...] Refills, Maintenance, 08/26/21 11:31:00 EST, CR Tablet, [facility] #[id number], Partial fill upon patient request if the [...] patch, 5 Refills, Maintenance, 06/09/21 18:36:00 EST, [facility] #[id number], Partial fill upon patient request if the prescription is for a schedule II opioid drug., 1 patch Topically, 158, cm, 12/06/20 8... Start Date: 06/09/21 Status: Ordered folic acid 0.4 mg oral tablet 1 tablet = 0.4 mg, By Mouth, Daily, # 100 tablet, 3 Refills, Maintenance, 06/26/21 16:54:00 EST, Tablet, [facility] #[id number], Partial fill upon patient request if the [...] 1 Refills, Maintenance, 08/10/21 18:58:00 EST, Tablet, [facility]/pharmacy #[id number], Partial fill upon patient request [...] patch, 1 Refills, Maintenance, 06/10/21 14:42:00 EST, [facility] #[id number], Partial fill upon patient request if t... Start Date: 06/10/21 Status: Ordered Zofran 4 mg oral tablet 1 tablet = 4 mg, By Mouth, Every 8 hours, PRN as needed for nausea/vomiting, # 20 tablet, 0 Refills, Maintenance, 08/05/21 17:23:00 EST, Tablet, [facility] #[id number], Partial fill upon patientrequest if the prescription is for a schedule II op... Start Date: 08/05/21 Status: Ordered Zofran 8 mg oral tablet 1 tablet = 8 mg, By Mouth, 2 times a day, # 20 tablet, 0 Refills, Acute 08/27/22 11:32:00 EST, 08/26/21 11:31:00 EST, Tablet, [facility] #[id number], Partial fill upon patient request if the [...] oldest [Reference Range]: 1 Height 158 cm (12/26/21 1:22 PM) Weight 90 kg (12/26/21 1:22 PM) Body Mass Index [18.5-24.99] 36.05 *>HHI* (12/26/21 1:22 PM) Blood Pressure [90-138/55-84 mm Hg] 115/ 59mm Hg (12/26/21 1:22 PM) Blood pressure sites Arm, right (12/26/21 1:22 PM) Weight Obtained Via Standing scale (12/26/21 1:22 PM) Social History Social History Type Response Smoking Status Never (less than 100 in lifetime) entered on: 08/25/21 Sex
--- OUTSIDE RECORDS SUMMARY | 2024-04-10 10:50 | XMS_ITS | Continuity of Care Document ---
Author Organization [facility] Address [address] [place] [address], [address] [place] [address]- Care Team Providers Care Night Assistant Name Role Phone Kaylah SNOW, Mariposa Cassidy Primary Care Physician [id number] Date(s): 02/06/22 - 04/04/22 [facility] [address] [place] [address], [address] [place], [place] [address] Attending Physician: Yong REYES, Sofía Staley [...] 0 Refills, Maintenance, 03/05/22 22:26:00 EDT, Capsule, [facility] #[id number], Partial fill upon patient request if the prescription is for a schedule II opioid . Start Date: 03/05/22 Status: Ordered aspirin 81 mg oral tablet, chewable 162 mg, 2, tablet, Chew, Daily, # 60 tablet, Refills 8, Tot. Refills 8, Maintenance, 08/26/21 11:37:00 EST, Route to Pharmacy Electronically, [facility] #[id number], Partial fill upon patient request if the prescription is for a schedule II opioi... Start Date: 08/26/21 Status: Ordered Colace sodium 100 mg oral capsule 100 mg, 1, capsule, By Mouth, 2 times a day, PRN, # 20 capsule, Refills 0, Tot. Refills 0, Maintenance, for constipation, 03/05/22 22:26:00 EDT, Route to Pharmacy Electronically, [facility]#[id number], Partial fill upon patient request if the pr... Start Date: 03/05/22 Status: Ordered ibuprofen 600 mg oral tablet 600 mg, 1, tablet, By Mouth, Every 6 hours, # 50 tablet, Refills 0, Tot. Refills 0, Maintenance, 03/05/22 22:26:00 EDT, Route to Pharmacy Electronically, [facility] #[id number], Partial fill upon patient request if the [...] 03/05/22 22:26:00 EDT, Route to Pharmacy Electronically, [facility] #[id number], Partial fill upon patient request if the [...] 0 Refills, Maintenance, 03/05/22 22:26:00 EDT,Chew Tablet, [id number], Partial fill upon patient request if the [...] Team Personnel Name: Mariposa Adrian NP Address: [address] [place] [address]
--- OUTSIDE RECORDS SUMMARY | 2024-04-10 10:50 | XMS_ITS | Continuity of Care Document ---
Author Organization [facility] Address [address] [place] [address], 4t [place] [address]- Care Team Providers Care Garment Supervisor Name Role Phone Kaylah SNOW, Mariposa Cassidy Primary Care Physician [phone] [id number] Date(s): 12/12/21 - 04/11/22 [facility] [employer] [facility] [address] [facility], 4th [place] [address]- Attending Physician: Sharon REYES, Mary Staley Referring Physician: Yong REYES, Sofía Staley Allergies, [...] 0 Refills, Maintenance, 03/05/22 22:26:00 EDT, Capsule, [facility] #[id number], Partial fill upon patient request if the prescription is for a schedule II opioid . Start Date: 03/05/22 Status: Ordered aspirin 81 mg oral tablet, chewable 162 mg, 2, tablet, Chew, Daily, # 60 tablet, Refills 8, Tot. Refills 8, Maintenance, 08/26/21 11:37:00 EST, Route to Pharmacy Electronically, [facility] #[id number], Partial fill upon patient request if the prescription is for a schedule II opioi... Start Date: 08/26/21 Status: Ordered Colace sodium 100 mg oral capsule 100 mg, 1, capsule, By Mouth, 2 times a day, PRN, # 20 capsule, Refills 0, Tot. Refills 0, Maintenance, for constipation, 03/05/22 22:26:00 EDT, Route to Pharmacy Electronically, [facility]#[id number], Partial fill upon patient request if the pr... Start Date: 03/05/22 Status: Ordered ibuprofen 600 mg oral tablet 600 mg, 1, tablet, By Mouth, Every 6 hours, # 50 tablet, Refills 0, Tot. Refills 0, Maintenance, 03/05/22 22:26:00 EDT, Route to Pharmacy Electronically, [facility] #[id number], Partial fill upon patient request if the [...] 0 Refills, Soft Stop, 04/09/22 10:41:00 EDT, [facility], Partial fill upon patient request if the prescription is for a schedule II opioid drug., 158, cm, 03/19/22 15:29:00 EDT, Height, 90... Start Date: 04/09/22 Status: Ordered oxyCODONE 5 mg oral tablet 10 mg, 2, tablet, By Mouth, Every 6 hours, PRN, # 12 tablet, Refills 0, Tot. Refills 0, Maintenance, for pain, 03/05/22 22:26:00 EDT, Route to Pharmacy Electronically, [facility] #[id number], Partial fill upon patient request if the [...] 0 Refills, Maintenance, 03/05/22 22:26:00 EDT,Chew Tablet, [facility] #[id number], Partial fill upon patient request if the prescription is for a schedule II opioid drug., 158, cm, 03/05/22 20... Start Date: 03/05/22 Status: Ordered Zoloft 25 mg oral tablet 1 tablet = 25 mg, By Mouth, Daily, 1 tablet orally daily x1 week, then increase to 2 tablets a day,# 30 tablet, 0 Refills, Maintenance, 04/10/22 11:20:00 EDT, Tablet, [facility] #[id number], Partial fill upon patient request if the prescription... Start Date: 04/10/22 Status: Ordered Problem List Condition Effective Dates Status Health Status Inform ant Asthma(Confirmed) Active History of depression(Confirmed) Active Hyperthyroidism(Confirmed) Active Hypothyroidism(Confirmed) Active Obese class I(Confirmed) Active PCOS - Polycystic ovarian syndrome(Confirmed) Active PCOS (polycystic ovarian syndrome)(Confirmed) Active Last Pap smear 08/26/21 negati ve with negative HPV(Confirmed) Active Social History Social History Type Response Smoking Status Never (less than 100 in lifetime) entered on: 08/25/21 Sex Care Team Personnel Name: Mariposa Adrian NP Address: [address] [place] [address]-
--- OUTSIDE RECORDS SUMMARY | 2024-04-10 10:50 | XMS_ITS | Continuity of Care Document ---
Author Organization [facility] Address [address] [facility], 4t [address] [place] [address]- Care Team Providers Care Button Maker And Installer Name Role Phone Lesser Mason REYES Primary Care Physician [facility] Date(s): 08/27/20 - 09/29/20 [facility] [address], 4th [address] [place] [address]- Attending Physician: Christina Spence MD Referring Physician: Not on Staff, Referring MD Allergies, Adverse Reactions, Alerts Substance Reaction [...] each, 0 Refills, Maintenance, 05/09/20 7:54:00 EDT, [facility], 158, cm, 05/02/20 14:32:00 EDT, Height, 88.2, kg, 01/09/19 16:14:00 EDT, Dry Weight Start Date: 05/09/20 Status: Ordered Folbic oral tablet 1 tablet, By Mouth, Daily, # 30 tablet, 11 Refills, Maintenance, 07/05/20 10:24:00 EST, [facility] #[id number], Partial fill upon patient request if the prescription is for a schedule II opioid drug., 1 tablet By Mouth Daily, 158, cm, 05/02/20 14... Start Date: 07/05/20 Status: Ordered metFORMIN 500 mg oral tablet, extended release 3 tablet = 1,500 mg, By Mouth, Daily, with evening meal, # 90 tablet, 11 Refills, Maintenance, 01/31/20 11:39:00 EDT, [facility] #[id number], 158, cm, 01/29/20 13:44:00 EDT, Height, 88.2, [...] 05/31/20 15:20:00 EST, Route to Pharmacy Electronically, [facility] #[id number], Partial fill upon patient request, 158, cm, [...] 6 Refills, Maintenance, 02/05/20 15:13:00 EDT, Tablet, [facility][id number], 158, cm, 01/29/20 13:44:00 EDT, Height, 88.2, kg, 01/09/19 16:14:00 EDT, Dry Weight Start Date: 02/05/20 Status: Ordered Zofran 8 mg oral tablet 1 tablet = 8 mg, By Mouth, Every 8 hours, PRN Nausea & Vomiting, # 10 tablet, 0 Refills, Maintenance, 05/31/20 11:44:00 EST, Tablet, [facility] #[id number], Partial fill upon patient request, 158, cm, [...]
--- OUTSIDE RECORDS SUMMARY | 2024-04-10 10:50 | XMS_ITS | Continuity of Care Document ---
Author Organization [facility] Address [address] [facility], 4t [place] [address] [place] [address]- Care Team Providers Care Teaching Pastor Name Role Phone Mason Rinaldi MD Primary Care Physician [phone] Encounter [facility] Date(s): 02/19/20 - 03/20/20 [facility] [address], 4th [place] [address] [place] [address]- [facility] Allergies, Adverse Reactions, Alerts Substance Reaction Severity [...] 2 pack/packet, 3 Refills, Maintenance, 01/12/20 17:03:00 EDT,[facility] #[id number], 1 tablet By Mouth Piedad... Start Date: [...] 0 Refills, Maintenance, 12/27/19 10:14:00 EDT, Tablet, [facility] #[id number], labs needed prior to next refill, 158, cm, 09/22/19 1... Start Date: 12/27/19 Status: Ordered levothyroxine 175 mcg (0.175 mg) oral tablet 1 tablet = 175 mcg, By Mouth, Daily, # 30 tablet, 3 Refills, Maintenance, 02/01/20 13:20:00 EDT, Tablet, [facility] #[id number], 158, cm, 01/29/20 13:44:00 EDT, Height, 88.2, [...] tablet, 11 Refills, Maintenance, 01/31/20 11:39:00 EDT, [facility] #[id number], 158, cm, 01/29/20 13:44:00 EDT, Height, 88.2, [...] 6 Refills, Maintenance, 02/05/20 15:13:00 EDT, Tablet, [facility] #[id number], 158, cm, 01/29/20 13:44:00 EDT, Height, 88.2, [...]
--- OUTSIDE RECORDS SUMMARY | 2024-04-10 10:50 | XMS_ITS | Continuity of Care Document ---
Author Organization [facility] Address [address] [facility], 4t [place] [address] [place] [address]- Care Team Providers Care Management Manager Name Role Phone Mason Rinaldi MD Primary Care Physician Encounter [facility] Date(s): 06/05/20 - 07/05/20 [facility] [address], 4th [place] [address] [place] [address]- Allergies, Adverse Reactions, Alerts Substance Reaction Severity [...] each, 0 Refills, Maintenance, 05/09/20 7:54:00 EDT, [facility], 158, cm, 05/02/20 14:32:00 EDT, Height, 88.2, kg, 01/09/19 16:14:00 EDT, Dry Weight Start Date: 05/09/20 Status: Ordered Folbic oral tablet 1 tablet, By Mouth, Daily, # 30 tablet, 11 Refills, Maintenance, 07/05/20 10:24:00 EST, [facility] #[id number], Partial fill upon patient request if the prescription is for a schedule II opioid drug., 1 tablet By Mouth Daily, 158, cm, 05/02/20 14... Start Date: 07/05/20 Status: Ordered metFORMIN 500 mg oral tablet, extended release 3 tablet = 1,500 mg, By Mouth, Daily, with evening meal, # 90 tablet, 11 Refills, Maintenance, 01/31/20 11:39:00 EDT, [facility] #[id number], 158, cm, 01/29/20 13:44:00 EDT, Height, 88.2, [...] 05/31/20 15:20:00 EST, Route to Pharmacy Electronically, [facility] #[id number], Partial fill upon patient request, 158, cm, [...] 6 Refills, Maintenance, 02/05/20 15:13:00 EDT, Tablet, [facility] #[id number], 158, cm, 01/29/20 13:44:00 EDT, Height, 88.2, kg, 01/09/19 16:14:00 EDT, Dry Weight Start Date: 02/05/20 Status: Ordered Zofran 8 mg oral tablet 1 tablet = 8 mg, By Mouth, Every 8 hours, PRN Nausea & Vomiting, # 10 tablet, 0 Refills, Maintenance, 05/31/20 11:44:00 EST, Tablet, [facility] #[id number], Partial fill upon patient request, 158, cm, [...]
--- OUTSIDE RECORDS SUMMARY | 2024-04-10 10:50 | XMS_ITS | Continuity of Care Document ---
Author Organization [facility] Address [address] [facility], 4t [place] [address]- Care Team Providers Care Public Health Engineer Name Role Phone Kaylah SNOW, Mariposa Cassidy Primary Care Physician [facility] [facility] Date(s): 08/18/21 - 09/17/21 [facility] [address] [facility], 4th [place] [address]- Allergies, Adverse Reactions, Alerts Substance Reaction Severity [...] cm, 12/06/20 8:28:00 EDT, Height, 87.5, kg, 11/09/20 2:26:00 EST, Dry Weight Start Date: 06/09/21 [...] 08/26/21 11:37:00 EST, Route to Pharmacy Electronically, [facility] #[id number], Partial fill upon patient request if the prescription is for a schedule II opioi... Start Date: 08/26/21 Status: Ordered bisacodyl 10 mg rectal suppository 1 supp = 10 mg, Rectally, Daily, PRN for constipation, # 10 supp, 0 Refills, Maintenance, 08/10/21 18:57:00 EST, Suppository, [facility]/pharmacy #[id number], Partial fill upon patient [...] Refills, Maintenance, 08/26/21 11:31:00 EST, CR Tablet, [facility] #[id number], Partial fill upon patient request if the [...] patch, 5 Refills, Maintenance, 06/09/21 18:36:00 EST, [facility] #[id number], Partial fill upon patient request if the prescription is for a schedule II opioid drug., 1 patch Topically, 158, cm, 12/06/20 8... Start Date: 06/09/21 Status: Ordered folic acid 0.4 mg oral tablet 1 tablet = 0.4 mg, By Mouth, Daily, # 100 tablet, 3 Refills, Maintenance, 06/26/21 16:54:00 EST, Tablet, [facility] #[id number], Partial fill upon patient request if the prescription is for a schedule II opioid drug., 158, cm, 06/24/21 9:16:00 ES... Start Date: 06/26/21 Status: Ordered levothyroxine 150 mcg (0.15 mg) oral tablet 1 tablet = 150 mcg, By Mouth, Daily, # 60 tablet, 1 Refills, Maintenance, 02/17/21 13:28:00 EDT, Tablet, [facility] #[id number], Partial fill upon patient request if the [...] Refills, Maintenance, 06/09/21 15:38:00 EST, [facility], Partial fill upon patient request if the [...] 6 each, 5Refills, Maintenance, 07/09/21 10:58:00 EST, [facility], Partial fill upon patient request if the prescription is for a schedule II opioid... Start Date: 07/09/21 Status: Ordered Reglan 5 mg oral tablet 1 tablet = 5 mg, By Mouth, Every 6 hours, PRN Nausea & Vomiting, # 90 tablet, 1 Refills, Maintenance, 08/10/21 18:58:00 EST, Tablet, [facility]/pharmacy #[id number], Partial fill upon patient request if the [...] patch, 1 Refills, Maintenance, 06/10/21 14:42:00 EST, [facility] #[id number], Partial fill upon patient request if t... Start Date: 06/10/21 Status: Ordered Zofran 4 mg oral tablet 1 tablet = 4 mg, By Mouth, Every 8 hours, PRN as needed for nausea/vomiting, # 20 tablet, 0 Refills, Maintenance, 08/05/21 17:23:00 EST, Tablet, [facility] #[id number], Partial fill upon patientrequest if the prescription is for a schedule II op... Start Date: 08/05/21 Status: Ordered Zofran 8 mg oral tablet 1 tablet = 8 mg, By Mouth, 2 times a day, # 20 tablet, 0 Refills, Acute 08/27/22 11:32:00 EST, 08/26/21 11:31:00 EST, Tablet, [facility] #[id number], Partial fill upon patient request if the [...]
--- OUTSIDE RECORDS SUMMARY | 2024-04-10 10:50 | XMS_ITS | Continuity of Care Document ---
Author Organization [facility] ter Address [address] [place] [address]- Care Team Providers Care Director Of Corporate Real Estate Name Role Phone Kaylah SNOW, Mariposa Cassidy Primary Care Physician [phone] Encounter [facility] Date(s): 04/17/21 - 04/23/[address] [address] Discharge Disposition: A-D/C Home Attending Physician: Deidra Luong MD Admitting Physician: Deidra Luong MD Referring Physician: Deidra Luong MD Allergies, [...] 0 Refills, Maintenance, 03/05/22 22:26:00 EDT, Capsule, [facility] #[id number], Partial fill upon patient request if the prescription is for a schedule II opioid drLeslie. Start Date: 03/05/22 Status: Ordered aspirin 81 mg oral tablet, chewable 162 mg, 2, tablet, Chew, Daily, # 60 tablet, Refills 8, Tot. Refills 8, Maintenance, 08/26/21 11:37:00 EST, Route to Pharmacy Electronically, [facility] #[id number], Partial fill upon patient request if the prescription is for a schedule II opioi... Start Date: 08/26/21 Status: Ordered Colace sodium 100 mg oral capsule 100 mg, 1, capsule, By Mouth, 2 times a day, PRN, # 20 capsule, Refills 0, Tot. Refills 0, Maintenance, for constipation, 03/05/22 22:26:00 EDT, Route to Pharmacy Electronically, [facility]#[id number], Partial fill upon patient request if the pr... Start Date: 03/05/22 Status: Ordered ibuprofen 600 mg oral tablet 600 mg, 1, tablet, By Mouth, Every 6 hours, # 50 tablet, Refills 0, Tot. Refills 0, Maintenance, 03/05/22 22:26:00 EDT, Route to Pharmacy Electronically, [facility] #[id number], Partial fill upon patient request if the [...] 0 Refills, Soft Stop, 04/09/22 10:41:00 EDT, [facility], Partial fill upon patient request if the prescription is for a schedule II opioid drug., 158, cm, 03/19/22 15:29:00 EDT, Height, 90... Start Date: 04/09/22 Status: Ordered oxyCODONE 5 mg oral tablet 10 mg, 2, tablet, By Mouth, Every 6 hours, PRN, # 12 tablet, Refills 0, Tot. Refills 0, Maintenance, for pain, 03/05/22 22:26:00 EDT, Route to Pharmacy Electronically, [facility] #[id number], Partial fill upon patient request if the [...] 0 Refills, Maintenance, 03/05/22 22:26:00 EDT,Chew Tablet, [facility] #[id number], Partial fill upon patient request if the prescription is for a schedule II opioid drug., 158, cm, 03/05/22 20... Start Date: 03/05/22 Status: Ordered Zoloft 25 mg oral tablet 1 tablet = 25 mg, By Mouth, Daily, 1 tablet orally daily x1 week, then increase to 2 tablets a day,# 30 tablet, 0 Refills, Maintenance, 04/10/22 11:20:00 EDT, Tablet, [facility] #[id number], Partial fill upon patient request if the [...] Name: Mariposa Adrian NP Address: Address: [address] [place], [place] [address]
--- OUTSIDE RECORDS SUMMARY | 2024-04-10 10:51 | XMS_ITS | Continuity of Care Document ---
Author Organization [facility] [address] [employer] [facility] Address [address] [place] [address], [address] [place] [address]- Care Team Providers Care Back Wedger Name Role Phone Kaylah SNOW, Mariposa Cassidy Primary Care Physician [id number] Date(s): 01/22/22 - 01/29/22 [facility] [address] [facility], [address] [place] [address]- Attending Physician: Froy REYES, Joshua Mcgowan Referring Physician: Yong REYES, Sofía Staley Allergies, [...] 08/26/21 11:37:00 EST, Route to Pharmacy Electronically, [facility] #[id number], Partial fill upon patient request if the prescription is for a schedule II opioi... Start Date: 08/26/21 Status: Ordered bisacodyl 10 mg rectal suppository 1 supp = 10 mg, Rectally, Daily, PRN for constipation, # 10 supp, 0 Refills, Maintenance, 08/10/21 18:57:00 EST, Suppository, [facility]/pharmacy #[id number], Partial fill upon patient request if the [...] 3 Refills, Maintenance, 06/26/21 16:54:00 EST, Tablet, [facility] #[id number], Partial fill upon patient request if the [...] 1 Refills, Maintenance, 08/10/21 18:58:00 EST, Tablet, [facility]/pharmacy #[id number], Partial fill upon patient request if the prescription is for a schedule II opioid drug., 158, cm,... Start Date: 08/10/21 Status: Ordered Zofran 8 mg oral tablet 1 tablet = 8 mg, By Mouth, 2 times a day, # 20 tablet, 0 Refills, Acute 08/27/22 11:32:00 EST, 08/26/21 11:31:00 EST, Tablet, [facility] #[id number], Partial fill upon patient request if the prescription is for a schedule II opioid drug., 158, cm... Start Date: 08/26/21 Stop Date: 08/27/22 Status: Ordered Problem List Condition Effective Dates Status Health Status Inform ant Asthma(Confirmed) Active Breech presentation(Confirmed) Active Chronic endometritis(Confirmed) Active Size > dates 39 cm at 32 weeks(Confirmed) Active History of depression(Confirmed) Active Hyperthyroidism(Confirmed) Active Hypothyroidism(Confirmed) Active Infertility, Female, Associa patrice with Anovulation(Confirmed) Active Menorrhagia(Confirmed) Active Obese class II(Confirmed) Active PCOS - Polycystic ovarian syndrome(Confirmed) Active PCOS (polycystic ovarian syndrome)(Confirmed) Active Suprapubic abdominal pain(Confirmed) Active Uterine scar from previous c esarean delivery(Confirmed) Active Vital Signs Most recent to oldest [Reference Range]: 1 Height 158 cm (01/22/22 1:04 PM) Weight 89.54 kg (01/22/22 1:04 PM) Body Mass Index [18.5-24.99] 35.87 *>HHI* (01/22/22 1:04 PM) Blood Pressure [90-138/55-84 mm Hg] 100/ 58mm Hg (01/22/22 1:04 PM) Blood pressure sites Arm, left (01/22/22 1:04 PM) Weight Obtained Via Standing scale (01/22/22 1:04 PM) Social History Social History Type Response Smoking Status Never (less than 100 in lifetime) entered on: 08/25/21 Sex
--- OUTSIDE RECORDS SUMMARY | 2024-04-10 10:51 | XMS_ITS | Continuity of Care Document ---
Author Organization [facility]on [employer] Address [address] [place] [address], [address] [place] [address]- Care Team Providers Care Equipment Or Machinery Cleaner Name Role Phone Kaylah SNOW, Mariposa Cassidy Primary Care Physician [id number] Date(s): 09/17/21 - 10/17/21 [facility] [employer] [facility] [address] [facility], [address] [place] [address]- Allergies, Adverse Reactions, Alerts Substance Reaction Severity [...] Dry Weight Start Date: 06/09/21 Status: Ordered amoxicillin-clavulanate 875 mg-125 mg oral tablet 1 tablet, By Mouth, 2 times a day, for 5 days, # 10 tablet, 0 Refills, Acute 10/22/21 14:40:00 EDT,10/17/21 14:40:00 EDT, Tablet, [facility], Partial fill upon patient request if the prescription is for a schedule II opioid drug., 158,... Start Date: 10/17/21 Stop Date: 10/22/21 Status: Ordered aspirin 81 mg oral delayed [...] 08/26/21 11:37:00 EST, Route to Pharmacy Electronically, [facility] #[id number], Partial fill upon patient request if the prescription is for a schedule II opioi... Start Date: 08/26/21 Status: Ordered bisacodyl 10 mg rectal suppository 1 supp = 10 mg, Rectally, Daily, PRN for constipation, # 10 supp, 0 Refills, Maintenance, 08/10/21 18:57:00 EST, Suppository, [facility]acy #[id number], Partial fill upon patient request if the prescriptionis for a schedule II opioid drug., 158, cm, ... Start Date: 08/10/21 Status: Ordered clotrimazole 1% topical cream 1 application, Topically, 2 times a day, # 15 Gm, 0 Refills, Maintenance, 10/03/21 9:22:00 EDT, Cream, [facility]/pharmacy #[id number], Partial fill upon patient request if [...] Refills, Maintenance, 08/26/21 11:31:00 EST, CR Tablet, [facility] #[id number], Partial fill upon patient request if the [...] patch, 5 Refills, Maintenance, 06/09/21 18:36:00 EST, [facility] #[id number], Partial fill upon patient request if the prescription is for a schedule II opioid drug., 1 patch Topically, 158, cm, 12/06/20 8... Start Date: 06/09/21 Status: Ordered folic acid 0.4 mg oral tablet 1 tablet = 0.4 mg, By Mouth, Daily, # 100 tablet, 3 Refills, Maintenance, 06/26/21 16:54:00 EST, Tablet, [facility] #[id number], Partial fill upon patient request if the [...] 1 Refills, Maintenance, 08/10/21 18:58:00 EST, Tablet, [facility]/pharmacy #[id number], Partial fill upon patient request if [...] patch, 1 Refills, Maintenance, 06/10/21 14:42:00 EST, [facility] #[id number], Partial fill upon patient request if t... Start Date: 06/10/21 Status: Ordered Zofran 4 mg oral tablet 1 tablet = 4 mg, By Mouth, Every 8 hours, PRN as needed for nausea/vomiting, # 20 tablet, 0 Refills, Maintenance, 08/05/21 17:23:00 EST, Tablet, [facility] #[id number], Partial fill upon patientrequest if the prescription is for a schedule II op... Start Date: 08/05/21 Status: Ordered Zofran 8 mg oral tablet 1 tablet = 8 mg, By Mouth, 2 times a day, # 20 tablet, 0 Refills, Acute 08/27/22 11:32:00 EST, 08/26/21 11:31:00 EST, Tablet, [facility] #[id number], Partial fill upon patient request if the [...]
--- OUTSIDE RECORDS SUMMARY | 2024-04-10 10:51 | XMS_ITS | Continuity of Care Document ---
Author Organization [facility]on [employer] Address [address] [place] [address], [address] [place] [address]- Care Team Providers Care Baggage Security Checker Name Role Phone Kaylah SNOW, Mariposa Cassidy Primary Care Phys[id number] Date(s): 09/17/21 - 10/17/21 [facility] [address] [facility], [address] [place], [place] [address] Allergies, Adverse Reactions, Alerts Substance Reaction Severity [...] Acute 10/22/21 14:40:00 EDT,10/17/21 14:40:00 EDT, Tablet, [facility] 3, Partial fill upon patient request if [...] 08/26/21 11:37:00 EST, Route to Pharmacy Electronically, [facility] #[id number], Partial fill upon patient request if the prescription is for a schedule II opioi... Start Date: 08/26/21 Status: Ordered bisacodyl 10 mg rectal suppository 1 supp = 10 mg, Rectally, Daily, PRN for constipation, # 10 supp, 0 Refills, Maintenance, 08/10/21 18:57:00 EST, Suppository, [facility]/pharmacy #[id number], Partial fill upon patient request if the prescriptionis for a schedule II opioid drug., 158, cm, ... Start Date: 08/10/21 Status: Ordered clotrimazole 1% topical cream 1 application, Topically, 2 times a day, # 15 Gm, 0 Refills, Maintenance, 10/03/21 9:22:00 EDT, Cream, [facility]/pharmacy #[id number], Partial fill upon [...] Refills, Maintenance, 08/26/21 11:31:00 EST, CR Tablet, [facility] #[id number], Partial fill upon patient request if the [...] patch, 5 Refills, Maintenance, 06/09/21 18:36:00 EST, [facility] #[id number], Partial fill upon patient request if the prescription is for a schedule II opioid drug., 1 patch Topically, 158, cm, 12/06/20 8... Start Date: 06/09/21 Status: Ordered folic acid 0.4 mg oral tablet 1 tablet = 0.4 mg, By Mouth, Daily, # 100 tablet, 3 Refills, Maintenance, 06/26/21 16:54:00 EST, Tablet, [facility] #[id number], Partial fill upon patient request if the [...] 1 Refills, Maintenance, 08/10/21 18:58:00 EST, Tablet, [facility]/pharmacy #[id number], Partial fill upon [...] patch, 1 Refills, Maintenance, 06/10/21 14:42:00 EST, [facility] #[id number], Partial fill upon patient request if t... Start Date: 06/10/21 Status: Ordered Zofran 4 mg oral tablet 1 tablet = 4 mg, By Mouth, Every 8 hours, PRN as needed for nausea/vomiting, # 20 tablet, 0 Refills, Maintenance, 08/05/21 17:23:00 EST, Tablet, [facility] #[id number], Partial fill upon patientrequest if the prescription is for a schedule II op... Start Date: 08/05/21 Status: Ordered Zofran 8 mg oral tablet 1 tablet = 8 mg, By Mouth, 2 times a day, # 20 tablet, 0 Refills, Acute 08/27/22 11:32:00 EST, 08/26/21 11:31:00 EST, Tablet, [facility] #[id number], Partial fill upon patient request if the [...]
--- OUTSIDE RECORDS SUMMARY | 2024-04-10 10:51 | XMS_ITS | Continuity of Care Document ---
Author Organization [facility] Address [address] [facility], [address]t [address] [place] [address]- Care Team Providers Care Multiple Needle Stitcher Name Role Phone Mason Rinaldi MD Primary Care Physician [facility] Date(s): 04/16/20 - 05/16/20 [facility] [address], [address] [place] [address]- [facility] Allergies, Adverse Reactions, Alerts Substance Reaction Severity [...] each, 0 Refills, Maintenance, 05/09/20 7:54:00 EDT, [facility], 158, cm, 05/02/20 14:32:00 EDT, Height, 88.2, kg, 01/09/19 16:14:00 EDT, Dry Weight Start Date: 05/09/20 Status: Ordered metFORMIN 500 mg oral tablet, extended release 3 tablet = 1,500 mg, By Mouth, Daily, with evening meal, # 90 tablet, 11 Refills, Maintenance, 01/31/20 11:39:00 EDT, [facility] #[id number], 158, cm, 01/29/20 13:44:00 EDT, Height, 88.2, [...] 6 Refills, Maintenance, 02/05/20 15:13:00 EDT, Tablet, [facility] #[id number], 158, cm, 01/29/20 13:44:00 EDT, Height, 88.2, [...]
--- OUTSIDE RECORDS SUMMARY | 2024-04-10 10:51 | XMS_ITS | Continuity of Care Document ---
Author Organization [facility] Address [address] [place] [address]- Care Team Providers Care Ui Software Engineer Name Role Phone Mason Rinaldi MD Primary Care Physician [phone] Encounter [facility] Date(s): 03/23/19 - 07/21/19 [facility] [address] [place] [address] [facility] Attending Physician: Skye Mcintosh MD Admitting Physician: Skye Mcintosh MD Referring Physician: Mason Rinaldi MD Allergies, Adverse Reactions, Alerts Substance Reaction Severity Status codeine red itchy Active aspirin red itchy Active morphine Active shellfish throat swells Active Adhesive Bandage 1 Active 1rash Immunizations Given and Recorded Vaccine Date Status Refusal Reason tetanus/diphtheria/pertussis, acel(Tdap) 1 08/02/12 Given 1Admin Note: VIS given, 08/11/2011 Medications Apri 0.15 mg-0.03 mg oral tablet 1 tablet, By Mouth, Daily, 1 active tablet daily on day 1 of period, take 21 days of active tablets,skip placebos start the next pack, # 2 pack/packet, 3 Refills, Maintenance, 04/18/19 17:12:45 EDT,1 tablet By Mouth Daily,Instr:1 active tablet wilmar... Start Date: 04/18/19 Status: Ordered doxycycline hyclate 100 mg oral tablet 1 tablet = 100 mg, By Mouth, 2 times a day, # 28 tablet, 5 Refills, Maintenance, 05/19/19 14:14:28 EDT Start Date: 05/19/19 Status: Ordered omeprazole 20 mg oral enteric [...] Status Health Status Inform ant Asthma(Confirmed) Active Hypothyroidism(Confirmed) Active Infertility, Female, Associa patrice with Anovulation(Confirmed) Active Menorrhagia(Confirmed) Active PCOS - Polycystic ovarian syndrome(Confirmed) Active Suprapubic abdominal pain(Confirmed) Active Social History Social History Type Response Smoking Status Never smoker; Tobacc o user in household: No entered on: 12/24/15 Sex
--- OUTSIDE RECORDS SUMMARY | 2024-04-10 10:51 | XMS_ITS | Continuity of Care Document ---
Author Organization [facility] [employer] Address [address] [place] [address], [address] [place] [address]- Care Team Providers Care Scientific Laboratory Supervisor Name Role Phone Kaylah SNOW, Mariposa M Primary Care Physician [id number] Date[facility]s): 08/26/21 - 09/02/21 [facility] [employer] [facility] [address] [facility], [address] [place], [place] [address] Attending Physician: Randee Wong MD Referring Physician: Lee Ann Stephens MD [...] 08/26/21 11:37:00 EST, Route to Pharmacy Electronically, [facility] #[id number], Partial fill upon patient request if the prescription is for a schedule II opioi... Start Date: 08/26/21 Status: Ordered bisacodyl 10 mg rectal suppository 1 supp = 10 mg, Rectally, Daily, PRN for constipation, # 10 supp, 0 Refills, Maintenance, 08/10/21 18:57:00 EST, Suppository, [facility]/pharmacy #[id number], Partial fill upon patient [...] Refills, Maintenance, 08/26/21 11:31:00 EST, CR Tablet, [facility] #[id number], Partial fill upon patient request if the [...] patch, 5 Refills, Maintenance, 06/09/21 18:36:00 EST, [facility] #[id number], Partial fill upon patient request if the prescription is for a schedule II opioid drug., 1 patch Topically, 158, cm, 12/06/20 8... Start Date: 06/09/21 Status: Ordered folic acid 0.4 mg oral tablet 1 tablet = 0.4 mg, By Mouth, Daily, # 100 tablet, 3 Refills, Maintenance, 06/26/21 16:54:00 EST, Tablet, [facility] #[id number], Partial fill upon patient request if the prescription is for a schedule II opioid drug., 158, cm, 06/24/21 9:16:00 ES... Start Date: 06/26/21 Status: Ordered levothyroxine 150 mcg (0.15 mg) oral tablet 1 tablet = 150 mcg, By Mouth, Daily, # 60 tablet, 1 Refills, Maintenance, 02/17/21 13:28:00 EDT, Tablet, [facility] #[id number], Partial fill upon patient request if the [...] 1 Refills, Maintenance, 08/10/21 18:58:00 EST, Tablet, [facility]/pharmacy #[id number], Partial fill upon patient request if the prescription is for a schedule II opioid drug., 158, cm,... Start Date: 08/10/21 Status: Ordered triamcinolone 0.025% topical ointment 1 application, Topically, 2 times a day, for 14 days, # 15 Gm, 0 Refills, Acute 09/09/21 11:35:00 EST, 08/26/21 11:35:00 EST, Ointment, [facility] #[id number], Partial fill upon patient request if the [...] patch, 1 Refills, Maintenance, 06/10/21 14:42:00 EST, [facility] #[id number], Partial fill upon patient request if t... Start Date: 06/10/21 Status: Ordered Zofran 4 mg oral tablet 1 tablet = 4 mg, By Mouth, Every 8 hours, PRN as needed for nausea/vomiting, # 20 tablet, 0 Refills, Maintenance, 08/05/21 17:23:00 EST, Tablet, [facility] #[id number], Partial fill upon patientrequest if the prescription is for a schedule II op... Start Date: 08/05/21 Status: Ordered Zofran 8 mg oral tablet 1 tablet = 8 mg, By Mouth, 2 times a day, # 20 tablet, 0 Refills, Acute 08/27/22 11:32:00 EST, 08/26/21 11:31:00 EST, Tablet, [facility] #[id number], Partial fill upon patient request if the [...] oldest [Reference Range]: 1 Height 158 cm (08/26/21 11:19 AM) Weight 88.2 kg (08/26/21 11:19 AM) Body Mass Index [18.5-24.99] 35.33 *>HHI* (08/26/21 11:19 AM) Blood Pressure [90-138/55-84 mm Hg] 122/ 74mm Hg (08/26/21 11:19 AM) Blood pressure sites Arm, left (08/26/21 11:19 AM) Weight Obtained Via Standing scale (08/26/21 11:19 AM) Social History Social History Type Response Smoking Status Never (less than 100 in lifetime) entered on: 08/25/21 Sex
--- OUTSIDE RECORDS SUMMARY | 2024-04-10 10:51 | XMS_ITS | Continuity of Care Document ---
Author Organization [facility] Address [address] [place] [address]- Care Team Providers Care Coke Burner Name Role Phone Kaylah SNOW, Mariposa Cassidy Primary Care Physician En[facility] Date(s): 03/04/22 - 04/03/22 [facility] [address] [facility] [address] [place], [place] [address] Attending Physician: Farzad Resendez Admitting Physician: Farzad Resendez Referring Physician: AdmtrFarzad Allergies, Adverse Reactions, Alerts Substance Reaction Severity [...] 0 Refills, Maintenance, 03/05/22 22:26:00 EDT, Capsule, [facility] #[id number], Partial fill upon patient request if the prescription is for a schedule II opioid . Start Date: 03/05/22 Status: Ordered aspirin 81 mg oral tablet, chewable 162 mg, 2, tablet, Chew, Daily, # 60 tablet, Refills 8, Tot. Refills 8, Maintenance, 08/26/21 11:37:00 EST, Route to Pharmacy Electronically, [facility] #[id number], Partial fill upon patient request if the prescription is for a schedule II opioi... Start Date: 08/26/21 Status: Ordered Colace sodium 100 mg oral capsule 100 mg, 1, capsule, By Mouth, 2 times a day, PRN, # 20 capsule, Refills 0, Tot. Refills 0, Maintenance, for constipation, 03/05/22 22:26:00 EDT, Route to Pharmacy Electronically, [facility][id number], Partial fill upon patient request if the pr... Start Date: 03/05/22 Status: Ordered ibuprofen 600 mg oral tablet 600 mg, 1, tablet, By Mouth, Every 6 hours, # 50 tablet, Refills 0, Tot. Refills 0, Maintenance, 03/05/22 22:26:00 EDT, Route to Pharmacy Electronically, [facility] #[id number], Partial fill upon patient request if the [...] 03/05/22 22:26:00 EDT, Route to Pharmacy Electronically, [facility] #[id number], Partial fill upon patient request if the [...] 0 Refills, Maintenance, 03/05/22 22:26:00 EDT,[facility]w Tablet, [id number], Partial fill upon patient request if the [...] Team Personnel Name: Mariposa Adrian NP Address: [address] [place] [id number]
--- OUTSIDE RECORDS SUMMARY | 2024-04-10 10:51 | XMS_ITS | Continuity of Care Document ---
Author Organization [facility] Address Unknown Care Team Providers Care Real Estate Asset Manager Name Role Phone Kaylah SNOW, Mariposa Cassidy Primary Care Physician Encounter [facility] [place] Date(s): 05/05/21 - 06/04/21 [facility] Rep[facility] Allergies, Adverse Reactions, Alerts [...] Maintenance, use to draw up IM Progesterone, 03/18/21 9:21:00 EDT, Compound, 158, cm, 12/06/20 8:28:00 EDT, Height, 87.5, kg, 05/27/20 2:26:00 EST, Dry Weight Start Date: 03/18/21 Status: Ordered estradiol 0.1 mg/24 hours twice weekly transdermal film, extended release See Instructions, apply 1-4 patches and change QOD. Follow calendar/protocol., # 32 each, 5 Refills, Maintenance, 03/18/21 9:21:00 EDT, [facility], 158, cm, 12/06/20 8:28:00 EDT, Height, 87.5, kg, 05/27/20 2:26:00 EST, Dry Weight Start Date: 03/18/21 Status: Ordered Folbic oral tablet 1 tablet, By Mouth, Daily, # 30 tablet, 11 Refills, Maintenance, 07/05/20 10:24:00 EST, [facility] #[id number], Partial fill upon patient request if the prescription is for a schedule II opioid drug., 1 tablet By Mouth Daily, 158, cm, 05/02/20 14... Start Date: 07/05/20 Status: Ordered levothyroxine 150 mcg (0.15 mg) oral tablet 1 tablet = 150 mcg, By Mouth, Daily, # 60 tablet, 1 Refills, Maintenance, 02/17/21 13:28:00 EDT, Tablet, [facility] #[id number], Partial fill upon patient request if the prescription is for a schedule II opioid drug., 158, cm, 12/06/20 8:28:00 ED... Start Date: 02/17/21 Status: Ordered metFORMIN 500 mg oral tablet, extended release 3 tablet = 1,500 mg, By Mouth, Daily, with evening meal, # 90 tablet, 11 Refills, Maintenance, 01/31/20 11:39:00 EDT, [facility] #[id number], 158, cm, 01/29/20 13:44:00 EDT, Height, 88.2, kg, 01/09/19 16:14:00 EDT, Dry Weight Start Date: 01/31/20 Stop Date: 01/25/21 Status: Ordered methylPREDNISolone 16 mg oral tablet = 16 mg, By Mouth, Daily, Take for 4 days when instructed with the last dose being the day of frozen embryo transfer, # 4 tablet, 0 Refills, Maintenance, 05/13/21 8:56:00 EDT, [facility] #[id number], Partial fill upon patient request if the presc... Start Date: 05/13/21 Status: Ordered omeprazole 20 mg oral enteric coated capsule 1 capsule = 20 mg, By Mouth, Daily, # 30 capsule, 0 Refills, Maintenance, 04/20/14 8:08:03, EC Capsule Start Date: 04/20/14 Status: Ordered ProAir HFA 90 mcg/inh inhalation aerosol with adapter 2, puffs, Inhalation, 4 times a day, PRN, Refills 0, Maintenance, 08/19/17 14:09:51 Start Date: 08/19/17 Status: Ordered progesterone 400 mg vaginal suppository 1 supp = 400 mg, Vaginally, 2 times a day, Start when instructed, # 60 supp, 0 Refills, Maintenance, 03/18/21 9:22:00 EDT, [facility], Partial fill upon patient request if the prescription is for a schedule II opioid drug., 158, cm, 12/06/... Start Date: 03/18/21 Status: Ordered progesterone 50 mg/mL intramuscular solution See Instructions, 75mg/ml 1.5 ml (sesame oil) Intramuscular Daily. Start when instructed, # 5 each,5 Refills, Maintenance, 03/18/21 9:22:00 EDT, [facility], Partial fill upon patient request if the prescription is for a schedule II opioid... Start Date: 03/18/21 Status: Ordered Provera 10 mg oral tablet 10 mg, 1, tablet, By Mouth, Daily, # 10 tablet, Refills 0, Tot. Refills 0, Maintenance, 05/26/21 11:44:00 EST, Route to Pharmacy Electronically, [facility] #[id number], Partial fill upon patientrequest if the prescription is for a schedule II op... Start Date: 05/26/21 Stop Date: 06/05/21 Status: Ordered Provera 10 mg oral tablet 10 mg, 1, tablet, By Mouth, Daily, # 7 tablet, Refills 0, Tot. Refills 0, Maintenance, 02/17/21 13:23:00 EDT, Route to Pharmacy Electronically, [facility] #[id number], Partial fill upon patient request if the [...]
--- OUTSIDE RECORDS SUMMARY | 2024-04-10 10:51 | XMS_ITS | Continuity of Care Document ---
Author Organization [facility] [employer] Address [address] [place] [address], [address] [place] [address]- Care Team Providers Care Consulting Practice Director Name Role Phone Kaylah SNOW, Mariposa Cassidy Primary Care Physician [phone] [id number] - 03/01/22 [facility] [address], [address] [place] [address]- Allergies, Adverse Reactions, Alerts Substance Reaction Severity [...] 08/26/21 11:37:00 EST, Route to Pharmacy Electronically, [facility] #[id number], Partial fill upon patient request if the prescription is for a schedule II opioi... Start Date: 08/26/21 Status: Ordered bisacodyl 10 mg rectal suppository 1 supp = 10 mg, Rectally, Daily, PRN for constipation, # 10 supp, 0 Refills, Maintenance, 08/10/21 18:57:00 EST, Suppository, [facility]/pharmacy #[id number], Partial fill upon patient request [...] 3 Refills, Maintenance, 06/26/21 16:54:00 EST, Tablet, [facility] #[id number], Partial fill upon patient request if the [...] 60each, 3 Refills, Maintenance, 02/18/22 11:08:00 EDT, [facility] #[id number], Partial fill uponpatient request if the prescription [...] 1 Refills, Maintenance, 08/10/21 18:58:00 EST, Tablet, [facility]/pharmacy #[id number], Partial fill upon patient request if the prescription is for a schedule II opioid drug., 158, cm,... Start Date: 08/10/21 Status: Ordered Zofran 8 mg oral tablet 1 tablet = 8 mg, By Mouth, 2 times a day, # 20 tablet, 0 Refills, Acute 08/27/22 11:32:00 EST, 08/26/21 11:31:00 EST, Tablet, [facility] #[id number], Partial fill upon patient request if the [...]
--- OUTSIDE RECORDS SUMMARY | 2024-04-10 10:51 | XMS_ITS | Continuity of Care Document ---
Author Organization [facility] e Medicine Address [address], 4t [address] [place] [address]- Care Team Providers Care County Records Management Officer Name Role Phone Mason Rinaldi MD Primary Care Physician [phone] Encounter [facility] [place] Date(s): 12/06/20 - 01/05/21 [facility] Reproductive Medicine [address], 4[address] [place] [address]- Attending Physician: Farzad Resendez Admitting Physician: Farzad Resendez Referring Physician: AdmtrFarzad Allergies, Adverse Reactions, Alerts Substance Reaction Severity Status codeine red itchy Active morphine Active Adhesive Bandage 1 Active aspirin red itchy Active shellfish throat swells Active 1rash Immunizations [...] tablet, 11 Refills, Maintenance, 07/05/20 10:24:00 EST, [facility] #[id number], Partial fill upon patient request if the prescription is for a schedule II opioid drug., 1 tablet By Mouth Daily, 158, cm, 05/02/20 14... Start Date: 07/05/20 Status: Ordered metFORMIN 500 mg oral tablet, extended release 3 tablet = 1,500 mg, By Mouth, Daily, with evening meal, # 90 tablet, 11 Refills, Maintenance, 01/31/20 11:39:00 EDT, [facility] #[id number], 158, cm, 01/29/20 13:44:00 EDT, Height, 88.2, [...] each, 5 Refills, Maintenance, 12/20/20 10:39:00 EDT, [facility], 158, cm, 12/06/20 8:28:00 EDT, Height, 87.5, kg, 05/27/20 2:26:00 EST, Dry Weight Start Date: 12/20/20 Status: Ordered Prometrium 200 mg oral capsule See Instructions, Begin when instructed. Insert 1 vaginally TID, # 90 capsule, 5 Refills, Maintenance, 12/20/20 10:39:00 EDT, [facility], Partial fill upon patient request if the prescription is for a schedule II opioid drug., 158, cm, ... Start Date: 12/20/20 Status: Ordered Synthroid 0.175 mg oral tablet 1 tablet, By Mouth, Daily, # 90 tablet, 3 Refills, Maintenance, 11/05/20 12:07:00 EDT, [facility] #[id number], 158, cm, 05/02/20 14:32:00 EDT, Height, 87.5, [...]
--- OUTSIDE RECORDS SUMMARY | 2024-04-10 10:51 | XMS_ITS | Continuity of Care Document ---
Author Organization [facility] Address [address] [place] [address], [address] [place] [address]- Care Team Providers Care Pattern Carrier Name Role Phone Kaylah SNOW, Mariposa Cassidy Primary Care Physician [phone] [place] [facility] [place] Date(s): 08/29/21 - 09/28/21 [facility] [employer] [address] [place] [address], [address] [place] [address]- Allergies, Adverse Reactions, Alerts Substance Reaction Severity [...] 08/26/21 11:37:00 EST, Route to Pharmacy Electronically, [facility] #[id number], Partial fill upon patient request if the prescription is for a schedule II opioi... Start Date: 08/26/21 Status: Ordered bisacodyl 10 mg rectal suppository 1 supp = 10 mg, Rectally, Daily, PRN for constipation, # 10 supp, 0 Refills, Maintenance, 08/10/21 18:57:00 EST, Suppository, [facility]/pharmacy #[id number], Partial fill upon patient request if [...] Refills, Maintenance, 08/26/21 11:31:00 EST, CR Tablet, [facility] #[id number], Partial fill upon patient request if the [...] patch, 5 Refills, Maintenance, 06/09/21 18:36:00 EST, [facility] #[id number], Partial fill upon patient request if the prescription is for a schedule II opioid drug., 1 patch Topically, 158, cm, 12/06/20 8... Start Date: 06/09/21 Status: Ordered folic acid 0.4 mg oral tablet 1 tablet = 0.4 mg, By Mouth, Daily, # 100 tablet, 3 Refills, Maintenance, 06/26/21 16:54:00 EST, Tablet, [facility] #[id number], Partial fill upon patient request if the prescription is for a schedule II opioid drug., 158, cm, 06/24/21 9:16:00 ES... Start Date: 06/26/21 Status: Ordered levothyroxine 150 mcg (0.15 mg) oral tablet 1 tablet = 150 mcg, By Mouth, Daily, # 60 tablet, 1 Refills, Maintenance, 02/17/21 13:28:00 EDT, Tablet, [facility] #[id number], Partial fill upon patient request if the [...] 1 Refills, Maintenance, 08/10/21 18:58:00 EST, Tablet, [facility]/pharmacy #[id number], Partial fill upon patient request if [...] patch, 1 Refills, Maintenance, 06/10/21 14:42:00 EST, [facility] #[id number], Partial fill upon patient request if t... Start Date: 06/10/21 Status: Ordered Zofran 4 mg oral tablet 1 tablet = 4 mg, By Mouth, Every 8 hours, PRN as needed for nausea/vomiting, # 20 tablet, 0 Refills, Maintenance, 08/05/21 17:23:00 EST, Tablet, [facility] #[id number], Partial fill upon patientrequest if the prescription is for a schedule II op... Start Date: 08/05/21 Status: Ordered Zofran 8 mg oral tablet 1 tablet = 8 mg, By Mouth, 2 times a day, # 20 tablet, 0 Refills, Acute 08/27/22 11:32:00 EST, 08/26/21 11:31:00 EST, Tablet, [facility] #[id number], Partial fill upon patient request if the [...]
--- OUTSIDE RECORDS SUMMARY | 2024-04-10 10:51 | XMS_ITS | Continuity of Care Document ---
Author Organization [facility] Address [address] [place] [address], [address] [place] [address]- Care Team Providers Care Accounting Professional Name Role Phone Kaylah SNOW, Mariposa Cassidy Primary Care Physician [id number] Date(s[facility]19[facility]22 - [facility]26/22 [facility] [address] [place] [address], [address] [place] [address]- Attending Physician: Mary Herrera MD Referring Physician: Sofía Beach MD Allergies, [...] 0 Refills, Maintenance, 03/05/22 22:26:00 EDT, Capsule, [facility] #[id number], Partial fill upon patient request if the prescription is for a schedule II opioid . Start Date: 03/05/22 Status: Ordered aspirin 81 mg oral tablet, chewable 162 mg, 2, tablet, Chew, Daily, # 60 tablet, Refills 8, Tot. Refills 8, Maintenance, 08/26/21 11:37:00 EST, Route to Pharmacy Electronically, [facility] #[id number], Partial fill upon patient request if the prescription is for a schedule II opioi... Start Date: 08/26/21 Status: Ordered Colace sodium 100 mg oral capsule 100 mg, 1, capsule, By Mouth, 2 times a day, PRN, # 20 capsule, Refills 0, Tot. Refills 0, Maintenance, for constipation, 03/05/22 22:26:00 EDT, Route to Pharmacy Electronically, [facility]#[id number], Partial fill upon patient request if the pr... Start Date: 03/05/22 Status: Ordered ibuprofen 600 mg oral tablet 600 mg, 1, tablet, By Mouth, Every 6 hours, # 50 tablet, Refills 0, Tot. Refills 0, Maintenance, 03/05/22 22:26:00 EDT, Route to Pharmacy Electronically, [facility] #[id number], Partial fill upon patient request if the [...] 03/05/22 22:26:00 EDT, Route to Pharmacy Electronically, [facility] #[id number], Partial fill upon patient request if the [...] 0 Refills, Maintenance, 03/05/22 22:26:00 EDT,Chew Tablet, [id number], Partial fill upon patient request if the [...] oldest [Reference Range]: 1 Height 158 cm (03/19/22 3:29 PM) Weight 81.26 kg (03/19/22 3:29 PM) Body Mass Index [18.5-24.99] 32.55 *>HHI* (03/19/22 3:29 PM) Blood Pressure [90-138/55-84 mm Hg] 112/ 60mm Hg (03/19/22 3:29 PM) Blood pressure sites Arm, right (03/19/22 3:29 PM) Weight Obtained Via Standing scale (03/19/22 3:29 PM) Social History Social History Type Response Smoking Status Never (less than 100 in lifetime) entered on: 08/25/21 Sex Care Team Personnel Name: Mariposa Adrian NP Address: [address] [place] [address]-
--- OUTSIDE RECORDS SUMMARY | 2024-04-10 10:51 | XMS_ITS | Continuity of Care Document ---
Author Organization [facility] e Medicine Address [address], [address]t [address] [place] [address]- Care Team Providers Care Long Filler Cigar Roller Machine Name Role Phone Mason Rinaldi MD Primary Care Physician [phone] [place] [facility] 04/12/20 - 05/12/20 [facility] Reproductive Medicine [address], 4th [address] [place] [address]- [facility] Allergies, Adverse Reactions, Alerts Substance Reaction Severity [...] each, 0 Refills, Maintenance, 05/09/20 7:54:00 EDT, [facility], 158, cm, 05/02/20 14:32:00 EDT, Height, 88.2, kg, 01/09/19 16:14:00 EDT, Dry Weight Start Date: 05/09/20 Status: Ordered metFORMIN 500 mg oral tablet, extended release 3 tablet = 1,500 mg, By Mouth, Daily, with evening meal, # 90 tablet, 11 Refills, Maintenance, 01/31/20 11:39:00 EDT, [facility] #[id number], 158, cm, 01/29/20 13:44:00 EDT, Height, 88.2, [...] 02/05/20 15:13:00 EDT, Tablet, [facility] #[id number], 158, cm, 01/29/20 13:44:00 EDT, Height, 88.2, [...]
--- OUTSIDE RECORDS SUMMARY | 2024-04-10 10:51 | XMS_ITS | Continuity of Care Document ---
Author Organization [facility] Address [address] [place] [address], [address] [place] [address]- Care Team Providers Care Bullet Slug Casting Machine Operator Name Role Phone Kaylah SNOW, Mariposa M Primary Care Physician [id number] Date(s): 09/05/21 - 09/12/21 [facility] [address], [address] [place] [address]- Attending Physician: Ivonne Fields MD Referring Physician: Randee Wong MD Lexi Allergies, Adverse Reactions, Alerts Substance Reaction Severity [...] 08/26/21 11:37:00 EST, Route to Pharmacy Electronically, [facility] #[id number], Partial fill upon patient request if the prescription is for a schedule II opioi... Start Date: 08/26/21 Status: Ordered bisacodyl 10 mg rectal suppository 1 supp = 10 mg, Rectally, Daily, PRN for constipation, # 10 supp, 0 Refills, Maintenance, 08/10/21 18:57:00 EST, Suppository, [facility] #[id number], Partial fill upon patient request if the [...] Refills, Maintenance, 08/26/21 11:31:00 EST, CR Tablet, [facility] #[id number], Partial fill upon patient request if the [...] patch, 5 Refills, Maintenance, 06/09/21 18:36:00 EST, [facility] #[id number], Partial fill upon patient request if the prescription is for a schedule II opioid drug., 1 patch Topically, 158, cm, 12/06/20 8... Start Date: 06/09/21 Status: Ordered folic acid 0.4 mg oral tablet 1 tablet = 0.4 mg, By Mouth, Daily, # 100 tablet, 3 Refills, Maintenance, 06/26/21 16:54:00 EST, Tablet, [facility] #[id number], Partial fill upon patient request if the prescription is for a schedule II opioid drug., 158, cm, 06/24/21 9:16:00 ES... Start Date: 06/26/21 Status: Ordered levothyroxine 150 mcg (0.15 mg) oral tablet 1 tablet = 150 mcg, By Mouth, Daily, # 60 tablet, 1 Refills, Maintenance, 02/17/21 13:28:00 EDT, Tablet, [facility] #[id number], Partial fill upon patient request if the [...] 1 Refills, Maintenance, 08/10/21 18:58:00 EST, Tablet, [facility] #[id number], Partial fill upon patient request if the [...] patch, 1 Refills, Maintenance, 06/10/21 14:42:00 EST, [facility] #[id number], Partial fill upon patient request if t... Start Date: 06/10/21 Status: Ordered Zofran 4 mg oral tablet 1 tablet = 4 mg, By Mouth, Every 8 hours, PRN as needed for nausea/vomiting, # 20 tablet, 0 Refills, Maintenance, 08/05/21 17:23:00 EST, Tablet, [facility] #[id number], Partial fill upon patientrequest if the prescription is for a schedule II op... Start Date: 08/05/21 Status: Ordered Zofran 8 mg oral tablet 1 tablet = 8 mg, By Mouth, 2 times a day, # 20 tablet, 0 Refills, Acute 08/27/22 11:32:00 EST, 08/26/21 11:31:00 EST, Tablet, [facility] #[id number], Partial fill upon patient request if the [...]
--- OUTSIDE RECORDS SUMMARY | 2024-04-10 10:51 | XMS_ITS | Continuity of Care Document ---
Author Organization [facility] e Medicine Address [address], 4t [address] [place] [address]- Care Team Providers Care Coding Compliance Manager Name Role Phone Mason Rinaldi MD Primary Care Physician [phone] [place] [facility] [place]04/20 - 04/11/20 [facility] Reproductive Medicine [address], 4[address] [place] [address]- [facility] Attending Physician: Deidra Luong MD Referring Physician: Mason Rinaldi MD Allergies, [...] 2 pack/packet, 3 Refills, Maintenance, 01/12/20 17:03:00 EDT,[facility] #[id number], 1 tablet By Mouth Piedad... Start Date: 01/12/20 Status: Ordered cabergoline 0.5 mg oral tablet 1 tablet = 0.5 mg, By Mouth, Daily, Begin 2 hours before hCG injection, # 7 tablet, 0 Refills, Maintenance, 04/08/20 14:58:00 EDT, [facility] #[id number], 158, cm, 03/21/20 8:43:00 EDT, Height, 88.2, kg, 01/09/19 16:14:00 EDT, Dry Weight Start Date: 04/08/20 Stop Date: 04/15/20 Status: Ordered Cetrotide 0.25 mg subcutaneous injection [...] 0 Refills, Maintenance, 12/27/19 10:14:00 EDT, Tablet, [facility] #[id number], labs needed prior to next refill, 158, cm, 09/22/19 1... Start Date: 12/27/19 Status: Ordered levothyroxine 175 mcg (0.175 mg) oral tablet 1 tablet = 175 mcg, By Mouth, Daily, # 30 tablet, 3 Refills, Maintenance, 02/01/20 13:20:00 EDT, Tablet, [facility] #[id number], 158, cm, 01/29/20 13:44:00 EDT, Height, 88.2, [...] tablet, 11 Refills, Maintenance, 01/31/20 11:39:00 EDT, [facility] #[id number], 158, cm, 01/29/20 13:44:00 EDT, Height, 88.2, [...] By Mouth, Every 6 hours, PRN, # 5 tablet, Refills 0, Tot. Refills 0, Maintenance, Pain , Severe, 04/09/20 8:51:00 EDT, Route to Pharmacy Electronically, [facility] #[id number], Partial fill upon patient request, 158, cm, 03/21/20... Start Date: 04/09/20 Status: Ordered Multivitamins with Folic Acid 1 [...] 6 Refills, Maintenance, 02/05/20 15:13:00 EDT, Tablet, [facility] #[id number], 158, cm, 01/29/20 13:44:00 EDT, Height, 88.2, [...] 04/09/20 8:51:00 EDT, Route to Pharmacy Electronically, [facility] #[id number]... Start Date: 04/09/20 Status: Ordered Problem List Condition Effective Dates [...]
--- OUTSIDE RECORDS SUMMARY | 2024-04-10 10:52 | XMS_ITS | Continuity of Care Document ---
Author Organization [facility] e Medicine Address [address], 4t [address] [place] [address]- Care Team Providers Care Poultry Field Service Technician Name Role Phone Mason Rinaldi MD Primary Care Physician [place] [facility] [place] - 04/15/20 [facility] Rep[facility]ductive [facility] [address], 4th [address] [place] [address]- [facility] Attending Physician: Not on Staff, Attending MD [...] 2 pack/packet, 3 Refills, Maintenance, 01/12/20 17:03:00 EDT,[facility] #[id number], 1 tablet By Mouth Piedad... Start Date: 01/12/20 Status: Ordered cabergoline 0.5 mg oral tablet 1 tablet = 0.5 mg, By Mouth, Daily, Begin 2 hours before hCG injection, # 7 tablet, 0 Refills, Maintenance, 04/08/20 14:58:00 EDT, [facility] #[id number], 158, cm, 03/21/20 8:43:00 EDT, Height, 88.2, [...] 0 Refills, Maintenance, 12/27/19 10:14:00 EDT, Tablet, [facility] #[id number], labs needed prior to next refill, 158, cm, 09/22/19 1... Start Date: 12/27/19 Status: Ordered levothyroxine 175 mcg (0.175 mg) oral tablet 1 tablet = 175 mcg, By Mouth, Daily, # 30 tablet, 3 Refills, Maintenance, 02/01/20 13:20:00 EDT, Tablet, [facility] #[id number], 158, cm, 01/29/20 13:44:00 EDT, Height, 88.2, [...] tablet, 11 Refills, Maintenance, 01/31/20 11:39:00 EDT, [facility] #[id number], 158, cm, 01/29/20 13:44:00 EDT, Height, 88.2, [...] 04/09/20 8:51:00 EDT, Route to Pharmacy Electronically, [facility] #[id number], Partial fill upon patient request, 158, cm, [...] 6 Refills, Maintenance, 02/05/20 15:13:00 EDT, Tablet, [facility] #[id number], 158, cm, 01/29/20 13:44:00 EDT, Height, 88.2, [...] 04/09/20 8:51:00 EDT, Route to Pharmacy Electronically, [facility] #[id number]... Start Date: 04/09/20 Status: Ordered Problem [...]
--- OUTSIDE RECORDS SUMMARY | 2024-04-10 10:52 | XMS_ITS | Continuity of Care Document ---
Author Organization [facility] Address [address], 4t [address] [place] [address]- Care Team Providers Care Loftsman Name Role Phone Mason Rinaldi MD Primary Care Physician [phone] En[place] [facility] [place] Date(s): 01/29/20 - 03/16/20 [facility] Rep[facility] [address], 4th [address] [place] [address]- [facility] Attending Physician: Not on Staff, [...] 2 pack/packet, 3 Refills, Maintenance, 01/12/20 17:03:00 EDT,[facility] #[id number], 1 tablet By Mouth Piedad... Start Date: [...] 0 Refills, Maintenance, 12/27/19 10:14:00 EDT, Tablet, [facility] #[id number], labs needed prior to next refill, 158, cm, 09/22/19 1... Start Date: 12/27/19 Status: Ordered levothyroxine 175 mcg (0.175 mg) oral tablet 1 tablet = 175 mcg, By Mouth, Daily, # 30 tablet, 3 Refills, Maintenance, 02/01/20 13:20:00 EDT, Tablet, [facility] #[id number], 158, cm, 01/29/20 13:44:00 EDT, Height, 88.2, [...] tablet, 11 Refills, Maintenance, 01/31/20 11:39:00 EDT, [facility] #[id number], 158, cm, 01/29/20 13:44:00 EDT, Height, 88.2, [...] 6 Refills, Maintenance, 02/05/20 15:13:00 EDT, Tablet, [facility] #[id number], 158, cm, 01/29/20 13:44:00 EDT, Height, 88.2, [...]
--- OUTSIDE RECORDS SUMMARY | 2024-04-10 10:52 | XMS_ITS | Continuity of Care Document ---
Author Organization [facility] Address Unknown Care Team Providers Care Shoe Designer Name Role Phone Kaylah SNOW, Mariposa Cassidy Primary Care Physician Encounter [facility] Date(s): 07/30/21 - 08/29/21 [facility] Allergies, Adverse Reactions, Alerts [...] 08/26/21 11:37:00 EST, Route to Pharmacy Electronically, [facility] #[id number], Partial fill upon patient request if the prescription is for a schedule II opioi... Start Date: 08/26/21 Status: Ordered bisacodyl 10 mg rectal suppository 1 supp = 10 mg, Rectally, Daily, PRN for constipation, # 10 supp, 0 Refills, Maintenance, 08/10/21 18:57:00 EST, Suppository, [facility]/pharmacy #[id number], Partial fill upon patient request if the [...] Refills, Maintenance, 08/26/21 11:31:00 EST, CR Tablet, [facility] #[id number], Partial fill upon patient request if the [...] patch, 5 Refills, Maintenance, 06/09/21 18:36:00 EST, [facility] #[id number], Partial fill upon patient request if the prescription is for a schedule II opioid drug., 1 patch Topically, 158, cm, 12/06/20 8... Start Date: 06/09/21 Status: Ordered folic acid 0.4 mg oral tablet 1 tablet = 0.4 mg, By Mouth, Daily, # 100 tablet, 3 Refills, Maintenance, 06/26/21 16:54:00 EST, Tablet, [facility] #[id number], Partial fill upon patient request if the prescription is for a schedule II opioid drug., 158, cm, 06/24/21 9:16:00 ES... Start Date: 06/26/21 Status: Ordered levothyroxine 150 mcg (0.15 mg) oral tablet 1 tablet = 150 mcg, By Mouth, Daily, # 60 tablet, 1 Refills, Maintenance, 02/17/21 13:28:00 EDT, Tablet, [facility] #[id number], Partial fill upon patient request if the [...] 08/10/21 18:58:00 EST, Tablet, [facility]/pharmacy #[id number], Partial fill upon patient request if the prescription is for a schedule II opioid drug., 158, cm,... Start Date: 08/10/21 Status: Ordered triamcinolone 0.025% topical ointment 1 application, Topically, 2 times a day, for 14 days, # 15 Gm, 0 Refills, Acute 09/09/21 11:35:00 EST, 08/26/21 11:35:00 EST, Ointment, [facility] #[id number], Partial fill upon patient request if the [...] patch, 1 Refills, Maintenance, 06/10/21 14:42:00 EST, [facility] #[id number], Partial fill upon patient request if t... Start Date: 06/10/21 Status: Ordered Zofran 4 mg oral tablet 1 tablet = 4 mg, By Mouth, Every 8 hours, PRN as needed for nausea/vomiting, # 20 tablet, 0 Refills, Maintenance, 08/05/21 17:23:00 EST, Tablet, [facility] #[id number], Partial fill upon patientrequest if the prescription is for a schedule II op... Start Date: 08/05/21 Status: Ordered Zofran 8 mg oral tablet 1 tablet = 8 mg, By Mouth, 2 times a day, # 20 tablet, 0 Refills, Acute 08/27/22 11:32:00 EST, 08/26/21 11:31:00 EST, Tablet, [facility] #[id number], Partial fill upon patient request if the [...]
--- OUTSIDE RECORDS SUMMARY | 2024-04-10 10:52 | XMS_ITS | Continuity of Care Document ---
Author Organization [facility] Address [address] [place] [address], [address] [place] [address]- Care Team Providers Care Plug Making Operator Name Role Phone Kaylah SNOW, Mariposa Cassidy Primary Care Physician [id number] Date(s): 10/09/21 - 11/08/21 [facility] [address] [facility], [address] [place] [address]- Allergies, Adverse Reactions, Alerts Substance Reaction Severity Status codeine red itchy Active aspirin red itchy Active morphine Active Adhesive Bandage 1 Active shellfish throat swells Active 1rash Immunizations [...] 08/26/21 11:37:00 EST, Route to Pharmacy Electronically, [facility] #[id number], Partial fill upon patient request if the prescription is for a schedule II opioi... Start Date: 08/26/21 Status: Ordered bisacodyl 10 mg rectal suppository 1 supp = 10 mg, Rectally, Daily, PRN for constipation, # 10 supp, 0 Refills, Maintenance, 08/10/21 18:57:00 EST, Suppository, [facility]/pharmacy #[id number], Partial fill upon patient request if the prescriptionis for a schedule II opioid drug., 158, cm, ... Start Date: 08/10/21 Status: Ordered clotrimazole 1% topical cream 1 application, Topically, 2 times a day, # 15 Gm, 0 Refills, Maintenance, 10/03/21 9:22:00 EDT, Cream, [facility]/pharmacy #[id number], Partial fill upon patient request [...] 10/21/21 13:22:00 EDT, Route to Pharmacy Electronically, [facility] #[id number], Partial fill upon patient request if the [...] Refills, Maintenance, 08/26/21 11:31:00 EST, CR Tablet, [facility] #[id number], Partial fill upon patient request if the [...] patch, 5 Refills, Maintenance, 06/09/21 18:36:00 EST, [facility] #[id number], Partial fill upon patient request if the prescription is for a schedule II opioid drug., 1 patch Topically, 158, cm, 12/06/20 8... Start Date: 06/09/21 Status: Ordered folic acid 0.4 mg oral tablet 1 tablet = 0.4 mg, By Mouth, Daily, # 100 tablet, 3 Refills, Maintenance, 06/26/21 16:54:00 EST, Tablet, [email or web address] #[id number], Partial fill upon patient request if the [...] 5Refills, Maintenance, 07/09/21 10:58:00 EST, [facility], Partial fill upon patient request if the prescription is for a schedule II opioid... Start Date: 07/09/21 Status: Ordered Reglan 5 mg oral tablet 1 tablet = 5 mg, By Mouth, Every 6 hours, PRN Nausea & Vomiting, # 90 tablet, 1 Refills, Maintenance, 08/10/21 18:58:00 EST, Tablet, [facility]/pharmacy #[id number], Partial fill upon patient request if the [...] patch, 1 Refills, Maintenance, 06/10/21 14:42:00 EST, [email or web address] #[id number], Partial fill upon patient request if t... Start Date: 06/10/21 Status: Ordered Zofran 4 mg oral tablet 1 tablet = 4 mg, By Mouth, Every 8 hours, PRN as needed for nausea/vomiting, # 20 tablet, 0 Refills, Maintenance, 08/05/21 17:23:00 EST, Tablet, [email or web address] #[id number], Partial fill upon patientrequest if the prescription is for a schedule II op... Start Date: 08/05/21 Status: Ordered Zofran 8 mg oral tablet 1 tablet = 8 mg, By Mouth, 2 times a day, # 20 tablet, 0 Refills, Acute 08/27/22 11:32:00 EST, 08/26/21 11:31:00 EST, Tablet, [email or web address] #[id number], Partial fill upon patient request if the [...]
--- OUTSIDE RECORDS SUMMARY | 2024-04-10 10:52 | XMS_ITS | Continuity of Care Document ---
Author Organization [facility] ter Address [address] [place] [address]- Care Team Providers Care Flare Stitcher Name Role Phone Mason Rinaldi MD Primary Care Physician [phone] [place] [facility] [place](s): 04/08/20 - 05/10/[address] [address]- [facility] Attending Physician: La Cary MD Allergies, Adverse Reactions, [...] each, 0 Refills, Maintenance, 05/09/20 7:54:00 EDT, [facility], 158, cm, 05/02/20 14:32:00 EDT, Height, 88.2, kg, 01/09/19 16:14:00 EDT, Dry Weight Start Date: 05/09/20 Status: Ordered metFORMIN 500 mg oral tablet, extended release 3 tablet = 1,500 mg, By Mouth, Daily, with evening meal, # 90 tablet, 11 Refills, Maintenance, 01/31/20 11:39:00 EDT, [facility] #[id number], 158, cm, 01/29/20 13:44:00 EDT, Height, 88.2, [...] 6 Refills, Maintenance, 02/05/20 15:13:00 EDT, Tablet, [facility] #[id number], 158, cm, 01/29/20 13:44:00 EDT, Height, 88.2, [...]
--- OUTSIDE RECORDS SUMMARY | 2024-04-10 10:52 | XMS_ITS | Continuity of Care Document ---
Author Organization [facility] Address [address] [place] [address]- Care Team Providers Care Sofa Cover Inspector Name Role Phone Kaylah SNOW, Mariposa Cassidy Primary Care Physician [phone] [facility] Date(s): 01/17/24 - 02/16/24 [facility] [address] [place] [address]- Allergies, Adverse Reactions, Alerts Substance Reaction Severity Status codeine red itchy Active Adhesive Bandage 1 Active shellfish throat swells Active aspirin red itchy Active morphine rash Active 1rash Immunizations Given and Recorded Vaccine [...] 02/10/24 12:08:00 EDT, Route to Pharmacy Electronically, [facility] #[id number], Partial fill upon patient request if the prescription is for a sched... Start Date: 02/10/24 Status: Ordered ibuprofen 600 mg oral tablet 600 mg, 1, tablet, By Mouth, Every 6 hours, PRN, # 30 tablet, Refills 0, Tot. Refills 0, Maintenance, Pain , Mild, 02/10/24 12:07:00 EDT, Route to Pharmacy Electronically, [facility] #[id number], Partial fill upon patient request if the prescript... Start Date: 02/10/24 Status: Ordered levothyroxine 150 mcg (0.15 mg) oral tablet 1 tablet = 150 mcg, By Mouth, Daily, # 30 tablet, 2 Refills, Maintenance, 09/17/23 15:00:00 EST, Tablet, [facility] #[id number], Partial fill upon patient request if the prescription is for a schedule II opioid drug., 158, cm, 04/10/22 11:14:00 E... Start Date: 09/17/23 Status: Ordered MiraLax oral powder for reconstitution = 17 Gm, By Mouth, Daily, dissolve in water before taking, # 255 Gm, 0 Refills, Maintenance, 02/10/24 12:07:00 EDT, REC Powder, [facility] #[id number], Partial fill upon patient request if the prescription is for a schedule II opioid drug., 17 Gm... Start Date: 02/10/24 Status: Ordered oxyCODONE 5 mg oral tablet 5 mg, 1, tablet, By Mouth, Every 6 hours, PRN, # 7 tablet, Refills 0, Tot. Refills 0, Maintenance, as needed for pain, 02/10/24 12:06:00 EDT, Route to Pharmacy Electronically, [facility] #[id number], Partial fill upon patient request if the presc... Start Date: 02/10/24 Status: Ordered Senna 8.6 mg oral tablet 8.6 mg, 1, tablet, By Mouth, Daily at bedtime, # 28 tablet, Refills 0, Tot. Refills 0, Maintenance,02/10/24 12:07:00 EDT, Route to Pharmacy Electronically, [facility] #[id number], Partial fill upon patient request if the prescription is for a sc... Start Date: 02/10/24 Status: Ordered simethicone 125 mg oral capsule 1 capsule = 125 mg, By Mouth, 4 times a day, PRN Gas, # 30 capsule, 0 Refills, Maintenance, 02/10/24 12:09:00 EDT, Capsule, [facility] #[id number], Partial fill upon patient request if the [...] Reference Physician Member Role: PCP Address: Address: [address] [place] [address]- Care Team Related Persons Name: POLO MANRIQUEZ Address: home [address] [place], [place] Name: MAGUI MANRIQUEZ Address: [address] Address: home [address] [place] [address] [place] Name: ALCIDES WARNER Address: [address] [address]
--- OUTSIDE RECORDS SUMMARY | 2024-04-10 10:52 | XMS_ITS | Continuity of Care Document ---
Author Organization [facility] Address [address] [facility], [address]t [address] [place] [address]- Care Team Providers Care Rolling Mill Operator Name Role Phone Mason Rinaldi MD Primary Care Physician [place] [facility] [place]20 - 09/26/20 [facility] [address] [facility] [facility], 4th [address] [place] [address]- Allergies, Adverse Reactions, Alerts Substance Reaction Severity [...] each, 0 Refills, Maintenance, 05/09/20 7:54:00 EDT, [facility], 158, cm, 05/02/20 14:32:00 EDT, Height, 88.2, kg, 01/09/19 16:14:00 EDT, Dry Weight Start Date: 05/09/20 Status: Ordered Folbic oral tablet 1 tablet, By Mouth, Daily, # 30 tablet, 11 Refills, Maintenance, 07/05/20 10:24:00 EST, [facility] #[id number], Partial fill upon patient request if the prescription is for a schedule II opioid drug., 1 tablet By Mouth Daily, 158, cm, 05/02/20 14... Start Date: 07/05/20 Status: Ordered metFORMIN 500 mg oral tablet, extended release 3 tablet = 1,500 mg, By Mouth, Daily, with evening meal, # 90 tablet, 11 Refills, Maintenance, 01/31/20 11:39:00 EDT, [facility] #[id number], 158, cm, 01/29/20 13:44:00 EDT, Height, 88.2, [...] 05/31/20 15:20:00 EST, Route to Pharmacy Electronically, [facility] #[id number], Partial fill upon patient request, 158, cm, [...] 6 Refills, Maintenance, 02/05/20 15:13:00 EDT, Tablet, [facility] #[id number], 158, cm, 01/29/20 13:44:00 EDT, Height, 88.2, kg, 01/09/19 16:14:00 EDT, Dry Weight Start Date: 02/05/20 Status: Ordered Zofran 8 mg oral tablet 1 tablet = 8 mg, By Mouth, Every 8 hours, PRN Nausea & Vomiting, # 10 tablet, 0 Refills, Maintenance, 05/31/20 11:44:00 EST, Tablet, [facility] #[id number], Partial fill upon patient request, 158, cm, [...]
--- OUTSIDE RECORDS SUMMARY | 2024-04-10 10:52 | XMS_ITS | Continuity of Care Document ---
Author Organization [facility] Address [address] [place] [address]- Care Team Providers Care Residential Fee Appraiser Name Role Phone Kaylah SNOW, Mariposa Cassidy Primary Care Physician [place] [facility] - 01/31/22 [facility] [address] [place] [address]- Attending Physician: Farzad Resendez Admitting Physician: Farzad [...] 08/26/21 11:37:00 EST, Route to Pharmacy Electronically, [facility] #[id number], Partial fill upon patient request if the prescription is for a schedule II opioi... Start Date: 08/26/21 Status: Ordered bisacodyl 10 mg rectal suppository 1 supp = 10 mg, Rectally, Daily, PRN for constipation, # 10 supp, 0 Refills, Maintenance, 08/10/21 18:57:00 EST, Suppository, [facility]/pharmacy #[id number], Partial fill upon patient request [...] 3 Refills, Maintenance, 06/26/21 16:54:00 EST, Tablet, [facility] #[id number], Partial fill upon patient request if the [...] 1 Refills, Maintenance, 08/10/21 18:58:00 EST, Tablet, [facility]/pharmacy #[id number], Partial fill upon patient request if the prescription is for a schedule II opioid drug., 158, cm,... Start Date: 08/10/21 Status: Ordered Zofran 8 mg oral tablet 1 tablet = 8 mg, By Mouth, 2 times a day, # 20 tablet, 0 Refills, Acute 08/27/22 11:32:00 EST, 08/26/21 11:31:00 EST, Tablet, [facility] #[id number], Partial fill upon patient request if the [...]
--- OUTSIDE RECORDS SUMMARY | 2024-04-10 10:52 | XMS_ITS | Continuity of Care Document ---
Author Organization [facility] Address [address] [place] [address]- Care Team Providers Care Hog Operator Name Role Phone Kaylah SNOW, Mariposa Cassidy Primary Care Physician Encounter [facility] Date(s): 11/29/23 - 12/29/23 [facility] [address] [place] [address] Attending Physician: Farzad Resendez Admitting Physician: AdmFarzad oviedo Referring Physician: AdmtrFarzad Allergies, Adverse Reactions, Alerts [...] 2 Refills, Maintenance, 09/17/23 15:00:00 EST, Tablet, [facility] #[id number], Partial fill upon patient request if the [...] entered on: 08/25/21 Sex Female Laboratory * Event Display: Laboratory Result Scanned Authored Date: * Event Display: Non BH Lab Results Authored Date: Radiology * Event Display: Non Radiology Results Authored Date: * Hue Luna: PERFORM Event Display: Radiology Results Scanned Authored Date: Patient Care team information Care Team Personnel Name: Vidya Lobo RN Position: [facility] SN RN Member Role: Primary Care Nurse Name: Joy Herron RN Position: [facility] RN Member Role: Primary Care Nurse Name: Mariposa Adrian NP Position: Reference Physician Member Role: PCP Address: Address: [address] [place] [address]- Care Team Related Persons Name: POLO MANRIQUEZ Address: [address] [place] [address] Name: MAGUI MANRIQUEZ Address: [address] Address: [address] [place] [address] [place] Name: ALCIDES WARNER Address: [address] [address]
--- OUTSIDE RECORDS SUMMARY | 2024-04-10 10:52 | XMS_ITS | Continuity of Care Document ---
Author Organization [facility] Address [address] [place] [address]- Care Team Providers Care Cloth Printer Name Role Phone Mason Rinaldi MD Primary Care Physician [id number] Date(s): 08/14/19 - 10/25/19 [facility] [address] [place] [address]- [facility] Attending Physician: Dasha Wright MD Admitting Physician: Dasha Wright MD Referring Physician: Mason Rinaldi MD Allergies, [...] 1 pack/packet, 3 Refills, Maintenance, 08/01/19 12:52:00 EST,[facility] [address] [place] [address], 1 tablet By Mouth Daily,... Start Date: [...] Dry Weight Start Date: 08/02/19 Status: Ordered levothyroxine 150 mcg (0.15 mg) oral tablet 1 tablet = 150 mcg, By Mouth, Daily, take 150 mcg , 1 pill 6 days a week and 0.5 pill , once a week, # 60 tablet, 0 Refills, Maintenance, 09/22/19 13:27:00 EST, Tablet, [facility] #[id number], 158, cm, 09/22/19 13:02:00 EST, Height, 88.2, kg, ... Start Date: 09/22/19 Status: Ordered Menopur 75 intl units subcutaneous [...] 08/19/17 14:09:51 Start Date: 08/19/17 Status: Ordered Problem List Condition Effective Dates [...]
--- OUTSIDE RECORDS SUMMARY | 2024-04-10 10:52 | XMS_ITS | Continuity of Care Document ---
Author Organization [facility] Address [address] [facility], 4t [address] [place] [address]- Care Team Providers Care Veterinary Practitioner Name Role Phone Mason Rinaldi MD Primary Care Physician [place] [facility] 04/03/20 [facility] [address], 4[address] [place] [address]- [facility] Allergies, Adverse Reactions, Alerts Substance [...] 2 pack/packet, 3 Refills, Maintenance, 01/12/20 17:03:00 EDT,[facility] #[id number], 1 tablet By Mouth Piedad... Start Date: [...] 0 Refills, Maintenance, 12/27/19 10:14:00 EDT, Tablet, [facility] #[id number], labs needed prior to next refill, 158, cm, 09/22/19 1... Start Date: 12/27/19 Status: Ordered levothyroxine 175 mcg (0.175 mg) oral tablet 1 tablet = 175 mcg, By Mouth, Daily, # 30 tablet, 3 Refills, Maintenance, 02/01/20 13:20:00 EDT, Tablet, [facility] #[id number], 158, cm, 01/29/20 13:44:00 EDT, Height, 88.2, [...] tablet, 11 Refills, Maintenance, 01/31/20 11:39:00 EDT, [facility] #[id number], 158, cm, 01/29/20 13:44:00 EDT, Height, 88.2, [...] 6 Refills, Maintenance, 02/05/20 15:13:00 EDT, Tablet, [facility] #[id number], 158, cm, 01/29/20 13:44:00 EDT, Height, 88.2, [...]
--- OUTSIDE RECORDS SUMMARY | 2024-04-10 10:52 | XMS_ITS | Continuity of Care Document ---
Author Organization [facility] Address [address] [place] [address], [address] [place] [address]- Care Team Providers Care Tube Room Supervisor Name Role Phone Kaylah SNOW, Mariposa Cassidy Primary Care Phys[id number] 12/09[facility] - 01/08/22 [facility] [address] [facility], [address] [place] [address]- Allergies, Adverse Reactions, Alerts Substance Reaction Severity [...] 08/26/21 11:37:00 EST, Route to Pharmacy Electronically, [facility] #[id number], Partial fill upon patient request if the prescription is for a schedule II opioi... Start Date: 08/26/21 Status: Ordered bisacodyl 10 mg rectal suppository 1 supp = 10 mg, Rectally, Daily, PRN for constipation, # 10 supp, 0 Refills, Maintenance, 08/10/21 18:57:00 EST, Suppository, [facility]/pharmacy #[id number], Partial fill upon patient request if the prescriptionis for a schedule II opioid drug., 158, cm, ... Start Date: 08/10/21 Status: Ordered clotrimazole 1% topical cream 1 application, Topically, 2 times a day, # 15 Gm, 0 Refills, Maintenance, 10/03/21 9:22:00 EDT, Cream, [facility]/pharmacy #[id number], Partial fill upon patient [...] 10/21/21 13:22:00 EDT, Route to Pharmacy Electronically, [facility] #[id number], Partial fill upon patient request if the [...] Refills, Maintenance, 08/26/21 11:31:00 EST, CR Tablet, [facility] #[id number], Partial fill upon patient request if the [...] patch, 5 Refills, Maintenance, 06/09/21 18:36:00 EST, [facility] #[id number], Partial fill upon patient request if the prescription is for a schedule II opioid drug., 1 patch Topically, 158, cm, 12/06/20 8... Start Date: 06/09/21 Status: Ordered folic acid 0.4 mg oral tablet 1 tablet = 0.4 mg, By Mouth, Daily, # 100 tablet, 3 Refills, Maintenance, 06/26/21 16:54:00 EST, Tablet, [facility] #[id number], Partial fill upon patient request if the [...] 1 Refills, Maintenance, 08/10/21 18:58:00 EST, Tablet, [facility]/pharmacy #[id number], Partial fill upon patient request if the [...] patch, 1 Refills, Maintenance, 06/10/21 14:42:00 EST, [facility] #[id number], Partial fill upon patient request if t... Start Date: 06/10/21 Status: Ordered Zofran 4 mg oral tablet 1 tablet = 4 mg, By Mouth, Every 8 hours, PRN as needed for nausea/vomiting, # 20 tablet, 0 Refills, Maintenance, 08/05/21 17:23:00 EST, Tablet, [facility] #[id number], Partial fill upon patientrequest if the prescription is for a schedule II op... Start Date: 08/05/21 Status: Ordered Zofran 8 mg oral tablet 1 tablet = 8 mg, By Mouth, 2 times a day, # 20 tablet, 0 Refills, Acute 08/27/22 11:32:00 EST, 08/26/21 11:31:00 EST, Tablet, [facility] #[id number], Partial fill upon patient request if the [...]
--- OUTSIDE RECORDS SUMMARY | 2024-04-10 10:52 | XMS_ITS | Continuity of Care Document ---
Author Organization [facility] Address [address] [place] [address]- Care Team Providers Care Machinist Name Role Phone Kaylah SNOW, Mariposa Cassidy Primary Care Physician [phone] Encounter [facility] [id number] Date(s): 02/18/22 - 03/20/22 [facility] [address] [place] [address] Attending Physician: Farzad Resendez Admitting Physician: Farzad [...] 0 Refills, Maintenance, 03/05/22 22:26:00 EDT, Capsule, [facility] #[id number], Partial fill upon patient request if the prescription is for a schedule II opioid . Start Date: 03/05/22 Status: Ordered aspirin 81 mg oral tablet, chewable 162 mg, 2, tablet, Chew, Daily, # 60 tablet, Refills 8, Tot. Refills 8, Maintenance, 08/26/21 11:37:00 EST, Route to Pharmacy Electronically, [facility] #[id number], Partial fill upon patient request if the prescription is for a schedule II opioi... Start Date: 08/26/21 Status: Ordered Colace sodium 100 mg oral capsule 100 mg, 1, capsule, By Mouth, 2 times a day, PRN, # 20 capsule, Refills 0, Tot. Refills 0, Maintenance, for constipation, 03/05/22 22:26:00 EDT, Route to Pharmacy Electronically, [facility][id number], Partial fill upon patient request if the pr... Start Date: 03/05/22 Status: Ordered ibuprofen 600 mg oral tablet 600 mg, 1, tablet, By Mouth, Every 6 hours, # 50 tablet, Refills 0, Tot. Refills 0, Maintenance, 03/05/22 22:26:00 EDT, Route to Pharmacy Electronically, [facility] #[id number], Partial fill upon patient request if the [...] 03/05/22 22:26:00 EDT, Route to Pharmacy Electronically, [facility] #[id number], Partial fill upon patient request if the [...] 0 Refills, Maintenance, 03/05/22 22:26:00 EDT,Chew Tablet, [facility] #[id number], Partial fill upon patient request if the [...] Personnel Name: Mariposa Adrian NP Address: [address] [place], [place] [address]
--- OUTSIDE RECORDS SUMMARY | 2024-04-10 10:52 | XMS_ITS | Continuity of Care Document ---
Author Organization [facility] [employer] Address [address] [place] [address], [address] [place] [address]- Care Team Providers Care Chief Fundraising Officer Name Role Phone Kaylah SNOW, Mariposa Cassidy Primary Care Physician Encounter [facility] [place] Date(s): 11/18/21 - 12/18/21 [facility] [address] [place] [address], [address] [place] [address]- Allergies, Adverse Reactions, Alerts Substance Reaction Severity [...] 08/26/21 11:37:00 EST, Route to Pharmacy Electronically, [facility] #[id number], Partial fill upon patient request if the prescription is for a schedule II opioi... Start Date: 08/26/21 Status: Ordered bisacodyl 10 mg rectal suppository 1 supp = 10 mg, Rectally, Daily, PRN for constipation, # 10 supp, 0 Refills, Maintenance, 08/10/21 18:57:00 EST, Suppository, [facility]/pharmacy #[id number], Partial fill upon patient request if the prescriptionis for a schedule II opioid drug., 158, cm, ... Start Date: 08/10/21 Status: Ordered clotrimazole 1% topical cream 1 application, Topically, 2 times a day, # 15 Gm, 0 Refills, Maintenance, 10/03/21 9:22:00 EDT, Cream, [facility]/pharmacy #[id number], Partial fill upon [...] 10/21/21 13:22:00 EDT, Route to Pharmacy Electronically, [facility] #[id number], Partial fill upon patient request if the [...] Refills, Maintenance, 08/26/21 11:31:00 EST, CR Tablet, [facility] #[id number], Partial fill upon patient request if the [...] patch, 5 Refills, Maintenance, 06/09/21 18:36:00 EST, [facility] #[id number], Partial fill upon patient request if the prescription is for a schedule II opioid drug., 1 patch Topically, 158, cm, 12/06/20 8... Start Date: 06/09/21 Status: Ordered folic acid 0.4 mg oral tablet 1 tablet = 0.4 mg, By Mouth, Daily, # 100 tablet, 3 Refills, Maintenance, 06/26/21 16:54:00 EST, Tablet, [facility] #[id number], Partial fill upon patient request if the [...] 1 Refills, Maintenance, 08/10/21 18:58:00 EST, Tablet, [facility]/pharmacy #[id number], Partial fill upon patient request if the [...] patch, 1 Refills, Maintenance, 06/10/21 14:42:00 EST, [facility] #[id number], Partial fill upon patient request if t... Start Date: 06/10/21 Status: Ordered Zofran 4 mg oral tablet 1 tablet = 4 mg, By Mouth, Every 8 hours, PRN as needed for nausea/vomiting, # 20 tablet, 0 Refills, Maintenance, 08/05/21 17:23:00 EST, Tablet, [facility] #[id number], Partial fill upon patientrequest if the prescription is for a schedule II op... Start Date: 08/05/21 Status: Ordered Zofran 8 mg oral tablet 1 tablet = 8 mg, By Mouth, 2 times a day, # 20 tablet, 0 Refills, Acute 08/27/22 11:32:00 EST, 08/26/21 11:31:00 EST, Tablet, [facility] #[id number], Partial fill upon patient request if the [...]
--- OUTSIDE RECORDS SUMMARY | 2024-04-10 10:52 | XMS_ITS | Continuity of Care Document ---
Author Organization [facility] [employer] [facility] Address [address] [place] [address], [address] [place] [address]- Care Team Providers Care Manager Of Internal Name Role Phone Kaylah SNOW, Mariposa Cassidy Primary Care Physician [id number] Date[facility]s): 03/10/22 - 03/17/22 [facility] [address] [place] [address], [address] [place] [address]- Attending Physician: Froy REYES, Joshua Mcgowan Referring Physician: Mary Herrera MD Allergies, Adverse Reactions, Alerts Substance Reaction [...] 0 Refills, Maintenance, 03/05/22 22:26:00 EDT, Capsule, [facility] #[id number], Partial fill upon patient request if the prescription is for a schedule II opioid . Start Date: 03/05/22 Status: Ordered aspirin 81 mg oral tablet, chewable 162 mg, 2, tablet, Chew, Daily, # 60 tablet, Refills 8, Tot. Refills 8, Maintenance, 08/26/21 11:37:00 EST, Route to Pharmacy Electronically, [facility] #[id number], Partial fill upon patient request if the prescription is for a schedule II opioi... Start Date: 08/26/21 Status: Ordered Colace sodium 100 mg oral capsule 100 mg, 1, capsule, By Mouth, 2 times a day, PRN, # 20 capsule, Refills 0, Tot. Refills 0, Maintenance, for constipation, 03/05/22 22:26:00 EDT, Route to Pharmacy Electronically, [facility]#[id number], Partial fill upon patient request if the pr... Start Date: 03/05/22 Status: Ordered ibuprofen 600 mg oral tablet 600 mg, 1, tablet, By Mouth, Every 6 hours, # 50 tablet, Refills 0, Tot. Refills 0, Maintenance, 03/05/22 22:26:00 EDT, Route to Pharmacy Electronically, [facility] #[id number], Partial fill upon patient request if the [...] 03/05/22 22:26:00 EDT, Route to Pharmacy Electronically, [facility] #[id number], Partial fill upon patient request if the [...] 0 Refills, Maintenance, 03/05/22 22:26:00 EDT,[facility]w Table[id number], Partial fill upon patient request if the [...] oldest [Reference Range]: 1 Height 158 cm (03/10/22 11:52 AM) Weight 84.54 kg (03/10/22 11:52 AM) Body Mass Index [18.5-24.99] 33.86 *>HHI* (03/10/22 11:52 AM) Blood Pressure [90-138/55-84 mm Hg] 111/ 58mm Hg (03/10/22 11:52 AM) Blood pressure sites Arm, left (03/10/22 11:52 AM) Weight Obtained Via Standing scale (03/10/22 11:52 AM) Social History Social History Type Response Smoking Status Never (less than 100 in lifetime) entered on: 08/25/21 Sex Care Team Personnel Name: Mariposa Adrian NP Address: [address] [place] [address]-
--- OUTSIDE RECORDS SUMMARY | 2024-04-10 10:52 | XMS_ITS | Continuity of Care Document ---
Author Organization [facility] [employer] [facility] Address [address], 4[address] [place] [address]- Care Team Providers Care Meter Supervisor Name Role Phone Kaylah SNOW, Mariposa Cassidy Primary Care Physician [phone] Encounter [facility] [place] Date(s): 09/07/21 - 10/07/21 [facility] [employer] [facility] [address], 4th [place] [address]- Allergies, Adverse Reactions, Alerts Substance Reaction Severity [...] 08/26/21 11:37:00 EST, Route to Pharmacy Electronically, [facility] #[id number], Partial fill upon patient request if the prescription is for a schedule II opioi... Start Date: 08/26/21 Status: Ordered bisacodyl 10 mg rectal suppository 1 supp = 10 mg, Rectally, Daily, PRN for constipation, # 10 supp, 0 Refills, Maintenance, 08/10/21 18:57:00 EST, Suppository, [facility]/pharmacy #[id number], Partial fill upon patient request if the prescriptionis for a schedule II opioid drug., 158, cm, ... Start Date: 08/10/21 Status: Ordered clotrimazole 1% topical cream 1 application, Topically, 2 times a day, # 15 Gm, 0 Refills, Maintenance, 10/03/21 9:22:00 EDT, Cream, [facility]/pharmacy #[id number], Partial fill upon patient request if the prescription is for a schedule II opioid drug., 1 application Topically 2 times a day,... Start Date: 10/03/21 Status: Ordered clotrimazole 1% vaginal cream with applicator 1 application, Vaginally, Daily at bedtime, for 7 days, # 45 Gm, 0 Refills, Acute 10/13/21 13:30:00EDT, 10/06/21 13:30:00 EDT, Cream, [facility] #[id number], Partial fill upon patient request if the prescription is for a schedule II opioid drug.... Start Date: 10/06/21 Stop Date: 10/13/21 Status: Ordered Docusate PRN as needed for constipation, 0 Refills, Maintenance, 08/25/21 14:26:00 EST, Partial fill upon patient request if the prescription is for a schedule II opioid drug. Start Date: 08/25/21 Status: Ordered doxylamine-pyridoxine 10 mg-10 mg oral delayed release tablet 2 tablet, By Mouth, Daily at bedtime, # 60 tablet, 1 Refills, Maintenance, 08/26/21 11:31:00 EST, CR Tablet, [facility] #[id number], Partial fill upon patient request if the [...] patch, 5 Refills, Maintenance, 06/09/21 18:36:00 EST, [facility] #[id number], Partial fill upon patient request if the prescription is for a schedule II opioid drug., 1 patch Topically, 158, cm, 12/06/20 8... Start Date: 06/09/21 Status: Ordered folic acid 0.4 mg oral tablet 1 tablet = 0.4 mg, By Mouth, Daily, # 100 tablet, 3 Refills, Maintenance, 06/26/21 16:54:00 EST, Tablet, [facility] #[id number], Partial fill upon patient request if the prescription is for a schedule II opioid drug., 158, gerry, 06/24/21 9:16:00 ES... Start Date: 06/26/21 Status: Ordered levothyroxine 150 mcg (0.15 mg) oral tablet 1 tablet = 150 mcg, By Mouth, Daily, # 60 tablet, 1 Refills, Maintenance, 02/17/21 13:28:00 EDT, Tablet, [facility] #[id number], Partial fill upon patient request if the prescription is for a schedule II opioid drug., gerry Foreman, 12/06/20 8:28:00 ED... Start Date: 02/17/21 Status: [...] Refills, Maintenance, 08/10/21 18:58:00 EST, Tablet, [facility]/pharmacy #[id number], Partial fill upon patient request if the prescription is for a schedule II opioid drug., 158, cm,... Start Date: 08/10/21 Status: Ordered terconazole topical 80 mg suppository 1 supp = 80 mg, Vaginally, Daily at bedtime, for 3 days, Acute, # 3 supp, 0 Refills, Acute 229:24:00 EDT, 10/06/21 9:24:00 EDT, [facility] #[id number], Partial fill upon patient request if the prescription is for a schedule II opioid drug.... Start Date: 10/06/21 Stop Date: 10/09/21 Status: Ordered Vivelle-Dot 0.1 mg/24 hours twice weekly transdermal film, extended release See Instructions, Place 1 patch on day 1-4 then 2 patches on day 5-10 and then 4 patches on day 11-14 changing patches QOD., # 8 patch, 1 Refills, Maintenance, 06/10/21 14:42:00 EST, [facility] #[id number], Partial fill upon patient request if t... Start Date: 06/10/21 Status: Ordered Zofran 4 mg oral tablet 1 tablet = 4 mg, By Mouth, Every 8 hours, PRN as needed for nausea/vomiting, # 20 tablet, 0 Refills, Maintenance, 08/05/21 17:23:00 EST, Tablet, [facility] #[id number], Partial fill upon patientrequest if the prescription is for a schedule II op... Start Date: 08/05/21 Status: Ordered Zofran 8 mg oral tablet 1 tablet = 8 mg, By Mouth, 2 times a day, # 20 tablet, 0 Refills, Acute 08/27/22 11:32:00 EST, 08/26/21 11:31:00 EST, Tablet, [facility] #[id number], Partial fill upon patient request if the [...]
--- OUTSIDE RECORDS SUMMARY | 2024-04-10 10:52 | XMS_ITS | Continuity of Care Document ---
Author Organization [facility] [employer] [facility] Address [address] [place] [address], [address] [place] [address]- Care Team Providers Care Gear Grinder Name Role Phone Kaylah SNOW, Mariposa Cassidy Primary Care Physician [id number] Date(s): [facility]/10/22 - 02/17/22 [facility] [address] [facility], [address] [place] [address]- Attending Physician: Randee Wong MD Referring Physician: Yong REYES, Sofía Staley [...] 08/26/21 11:37:00 EST, Route to Pharmacy Electronically, [facility] #[id number], Partial fill upon patient request if the prescription is for a schedule II opioi... Start Date: 08/26/21 Status: Ordered bisacodyl 10 mg rectal suppository 1 supp = 10 mg, Rectally, Daily, PRN for constipation, # 10 supp, 0 Refills, Maintenance, 08/10/21 18:57:00 EST, Suppository, [facility]/pharmacy #[id number], Partial fill upon patient request if the [...] 3 Refills, Maintenance, 06/26/21 16:54:00 EST, Tablet, [facility] #[id number], Partial fill upon patient request if the [...] 1 Refills, Maintenance, 08/10/21 18:58:00 EST, Tablet, [facility]/pharmacy #[id number], Partial fill upon patient request if the prescription is for a schedule II opioid drug., 158, cm,... Start Date: 08/10/21 Status: Ordered Zofran 8 mg oral tablet 1 tablet = 8 mg, By Mouth, 2 times a day, # 20 tablet, 0 Refills, Acute 08/27/22 11:32:00 EST, 08/26/21 11:31:00 EST, Tablet, [facility] #[id number], Partial fill upon patient request if the [...] oldest [Reference Range]: 1 Height 158 cm (02/10/22 9:10 AM) Weight 91.72 kg (02/10/22 9:10 AM) Body Mass Index [18.5-24.99] 36.74 *>HHI* (02/10/22 9:10 AM) Blood Pressure [90-138/55-84 mm Hg] 115/ 67mm Hg (02/10/22 9:10 AM) Blood pressure sites Arm, left (02/10/22 9:10 AM) Weight Obtained Via Standing scale (02/10/22 9:10 AM) Social History Social History Type Response Smoking Status Never (less than 100 in lifetime) entered on: 08/25/21 Sex
--- OUTSIDE RECORDS SUMMARY | 2024-04-10 10:52 | XMS_ITS | Continuity of Care Document ---
Author Organization [facility] [employer] Address [address] [place] [address], [address] [place] [address]- Care Team Providers Care Clinical Services Assistant Name Role Phone Kaylah SNOW, Mariposa Cassidy Primary Care Physician [id number] Date(s): 10/31/21 - 11/07/21 [facility] [address] [facility], [address] [place], [place] [address] Attending Physician: Yong REYES, Sofía Staley [...] 08/26/21 11:37:00 EST, Route to Pharmacy Electronically, [facility] #[id number], Partial fill upon patient request if the prescription is for a schedule II opioi... Start Date: 08/26/21 Status: Ordered bisacodyl 10 mg rectal suppository 1 supp = 10 mg, Rectally, Daily, PRN for constipation, # 10 supp, 0 Refills, Maintenance, 08/10/21 18:57:00 EST, Suppository, [facility]/pharmacy #[id number], Partial fill upon patient request if the prescriptionis for a schedule II opioid drug., 158, cm, ... Start Date: 08/10/21 Status: Ordered clotrimazole 1% topical cream 1 application, Topically, 2 times a day, # 15 Gm, 0 Refills, Maintenance, 10/03/21 9:22:00 EDT, Cream, [facility]/pharmacy #[id number], Partial fill upon patient request [...] 10/21/21 13:22:00 EDT, Route to Pharmacy Electronically, [facility] #[id number], Partial fill upon patient request if the [...] Refills, Maintenance, 08/26/21 11:31:00 EST, CR Tablet, [facility] #[id number], Partial fill upon patient request if the [...] patch, 5 Refills, Maintenance, 06/09/21 18:36:00 EST, [facility] #[id number], Partial fill upon patient request if the prescription is for a schedule II opioid drug., 1 patch Topically, 158, cm, 12/06/20 8... Start Date: 06/09/21 Status: Ordered folic acid 0.4 mg oral tablet 1 tablet = 0.4 mg, By Mouth, Daily, # 100 tablet, 3 Refills, Maintenance, 06/26/21 16:54:00 EST, Tablet, [facility] #[id number], Partial fill upon patient request if the [...] 08/10/21 18:58:00 EST, Tablet, [facility]/pharmacy #[id number], Partial fill upon patient request [...] patch, 1 Refills, Maintenance, 06/10/21 14:42:00 EST, [facility] #[id number], Partial fill upon patient request if t... Start Date: 06/10/21 Status: Ordered Zofran 4 mg oral tablet 1 tablet = 4 mg, By Mouth, Every 8 hours, PRN as needed for nausea/vomiting, # 20 tablet, 0 Refills, Maintenance, 08/05/21 17:23:00 EST, Tablet, [facility] #[id number], Partial fill upon patientrequest if the prescription is for a schedule II op... Start Date: 08/05/21 Status: Ordered Zofran 8 mg oral tablet 1 tablet = 8 mg, By Mouth, 2 times a day, # 20 tablet, 0 Refills, Acute 08/27/22 11:32:00 EST, 08/26/21 11:31:00 EST, Tablet, [facility] #[id number], Partial fill upon patient request [...] oldest [Reference Range]: 1 Height 158 cm (10/31/21 2:33 PM) Weight 87.73 kg (10/31/21 2:33 PM) Body Mass Index [18.5-24.99] 35.14 *>HHI* (10/31/21 2:33 PM) Blood Pressure [90-138/55-84 mm Hg] 124/ 61mm Hg (10/31/21 2:33 PM) Blood pressure sites Arm, left (10/31/21 2:33 PM) Weight Obtained Via Standing scale (10/31/21 2:33 PM) Social History Social History Type Response Smoking Status Never (less than 100 in lifetime) entered on: 08/25/21 Sex
--- OUTSIDE RECORDS SUMMARY | 2024-04-10 10:52 | XMS_ITS | Continuity of Care Document ---
Author Organization [facility] Address [address] [place] [address], [address] [place] [address]- Care Team Providers Care Forge Hand Name Role Phone Mason Rinaldi MD Primary Care Physician [phone] Encounter [facility] [place] Date(s): 03/08/20 - 04/07/20 [facility] [address] [facility], 4th [address] [place] [address] [facility] Allergies, Adverse Reactions, Alerts Substance Reaction [...] 2 pack/packet, 3 Refills, Maintenance, 01/12/20 17:03:00 EDT,[facility] #[id number], 1 tablet By Mouth Piedad... Start Date: [...] 0 Refills, Maintenance, 12/27/19 10:14:00 EDT, Tablet, [facility] #[id number], labs needed prior to next refill, 158, cm, 09/22/19 1... Start Date: 12/27/19 Status: Ordered levothyroxine 175 mcg (0.175 mg) oral tablet 1 tablet = 175 mcg, By Mouth, Daily, # 30 tablet, 3 Refills, Maintenance, 02/01/20 13:20:00 EDT, Tablet, [facility] #[id number], 158, cm, 01/29/20 13:44:00 EDT, Height, 88.2, [...] tablet, 11 Refills, Maintenance, 01/31/20 11:39:00 EDT, [facility] #[id number], 158, cm, 01/29/20 13:44:00 EDT, Height, 88.2, [...] 6 Refills, Maintenance, 02/05/20 15:13:00 EDT, Tablet, [facility] #[id number], 158, cm, 01/29/20 13:44:00 EDT, Height, 88.2, [...]
--- OUTSIDE RECORDS SUMMARY | 2024-04-10 10:52 | XMS_ITS | Continuity of Care Document ---
Author Organization [facility] Address [address] [place] [address]- Care Team Providers Care Director Global Name Role Phone Mariposa Adrian NP Primary Care Physician [phone] Encounter [facility] [place] Date(s): 03/01/21 - 06/29/21 [facility] [address] [place] [address]- Attending Physician: Gabby Gore MD Admitting Physician: Gabby Gore MD Referring Physician: Mariposa Adrian NP Allergies, [...] patch, 5 Refills, Maintenance, 06/09/21 18:36:00 EST, [facility] #[id number], Partial fill upon patient request if the prescription is for a schedule II opioid drug., 1 patch Topically, 158, cm, 12/06/20 8... Start Date: 06/09/21 Status: Ordered folic acid 0.4 mg oral tablet 1 tablet = 0.4 mg, By Mouth, Daily, # 100 tablet, 3 Refills, Maintenance, 06/26/21 16:54:00 EST, Tablet, [facility] #[id number], Partial fill upon patient request if the prescription is for a schedule II opioid drug., 158, cm, 06/24/21 9:16:00 ES... Start Date: 06/26/21 Status: Ordered levothyroxine 150 mcg (0.15 mg) oral tablet 1 tablet = 150 mcg, By Mouth, Daily, # 60 tablet, 1 Refills, Maintenance, 02/17/21 13:28:00 EDT, Tablet, [facility] #[id number], Partial fill upon patient request if the prescription is for a schedule II opioid drug., 158, cm, 12/06/20 8:28:00 ED... Start Date: 02/17/21 Status: Ordered metFORMIN 500 mg oral tablet, extended release 3 tablet = 1,500 mg, By Mouth, Daily, with evening meal, # 90 tablet, 11 Refills, Maintenance, 01/31/20 11:39:00 EDT, [facility] #[id number], 158, cm, 01/29/20 13:44:00 EDT, Height, 88.2, kg, 01/09/19 16:14:00 EDT, Dry Weight Start Date: 01/31/20 Stop Date: 01/25/21 Status: Ordered methylPREDNISolone 16 mg oral tablet = 16 mg, By Mouth, Daily, Take for 4 days when instructed with the last dose being the day of frozen embryo transfer, # 4 tablet, 0 Refills, Maintenance, 06/09/21 15:38:00 EST, [facility], Partial fill upon patient request if [...] Refills, Maintenance, 06/09/21 15:40:00 EST, [facility], Partial fill upon patient request if the prescription is for a schedule II opioi... Start Date: 06/09/21 Status: Ordered Provera 10 mg oral tablet 10 mg, 1, tablet, By Mouth, Daily, # 10 tablet, Refills 0, Tot. Refills 0, Maintenance, 05/26/21 11:44:00 EST, Route to Pharmacy Electronically, [facility] #[id number], Partial fill upon patientrequest if the prescription is for a schedule II op... Start Date: 05/26/21 Stop Date: 06/05/21 Status: Ordered Provera 10 mg oral tablet 10 mg, 1, tablet, By Mouth, Daily, # 7 tablet, Refills 0, Tot. Refills 0, Maintenance, 02/17/21 13:23:00 EDT, Route to Pharmacy Electronically, [facility] #[id number], Partial fill upon patient request if the prescription is for a schedule II opi... Start Date: 02/17/21 Stop Date: 02/24/21 Status: Ordered Valium 5 mg oral tablet 5 mg, 1, tablet, By Mouth, call center dispatcher to Procedure, May need to repeat!, # 2 tablet, Refills 0, Tot. Refills 0, Maintenance, 06/25/21 10:29:00 EST, Route to Pharmacy Electronically, [facility]#[id number], Partial fill upon patient request if the pr... Start Date: 06/25/21 Status: Ordered Vivelle-Dot 0.1 mg/24 hours twice weekly transdermal film, extended release See Instructions, Place 1 patch on day 1-4 then 2 patches on day 5-10 and then 4 patches on day 11-14 changing patches QOD., # 8 patch, 1 Refills, Maintenance, 06/10/21 14:42:00 EST, [facility] #[id number], Partial fill upon patient request if t... [...]
--- OUTSIDE RECORDS SUMMARY | 2024-04-10 10:52 | XMS_ITS | Continuity of Care Document ---
Author Organization [facility] Address [address], 4t [address] [place] [address]- Care Team Providers Care Statistics Manager Name Role Phone Not on Staff, PCP Primary Care Physician Unavail able Encounter [facility] Date(s): 01/17/20 - 03/01/20 [facility] [address], 4th [address] [place] [address] [facility] Attending Physician: Deidra Luong MD
--- OUTSIDE RECORDS SUMMARY | 2024-04-10 10:52 | XMS_ITS | Continuity of Care Document ---
Author Organization [facility] Address [address] [facility], 4t [address] [place] [address]- Care Team Providers Care Industrial Equipment Wirer Name Role Phone Not on Staff, PCP Primary Care Physician Unavail able Encounter [facility] Date(s): 01/17/20 - 03/16/20 [facility] [address] [facility], 4th [address] [place] [address] [facility] Attending Physician: Not on Staff, Attending MD Referring Physician: Diedra Luong MD
--- OUTSIDE RECORDS SUMMARY | 2024-04-10 10:52 | XMS_ITS | Continuity of Care Document ---
Author Organization [facility] ter Address [address] [place] [address]- Care Team Providers Care Slitter And Rewinder Machine Operator Name Role Phone Kaylah SNOW, Mariposa Cassidy Primary Care Physician [phone] Encounter [facility] [facility] Date(s): 03/02/22 - 03/02/[address] [address] Discharge Disposition: A-D/C Home Attending Physician: Sofía Beach MD Admitting Physician: Sofía Beach MD Referring Physician: Sofía Beach MD Allergies, [...] 08/26/21 11:37:00 EST, Route to Pharmacy Electronically, [facility] #[id number], Partial fill upon patient request if the prescription is for a schedule II opioi... Start Date: 08/26/21 Status: Ordered bisacodyl 10 mg rectal suppository 1 supp = 10 mg, Rectally, Daily, PRN for constipation, # 10 supp, 0 Refills, Maintenance, 08/10/21 18:57:00 EST, Suppository, [facility]/pharmacy #[id number], Partial fill upon patient request if the [...] 3 Refills, Maintenance, 06/26/21 16:54:00 EST, Tablet, [facility] #[id number], Partial fill upon patient request if the [...] 60each, 3 Refills, Maintenance, 02/18/22 11:08:00 EDT, [facility] #[id number], Partial fill uponpatient request if the prescription [...] 1 Refills, Maintenance, 08/10/21 18:58:00 EST, Tablet, [facility]/pharmacy #[id number], Partial fill upon patient request if the prescription is for a schedule II opioid drug., 158, cm,... Start Date: 08/10/21 Status: Ordered Zofran 8 mg oral tablet 1 tablet = 8 mg, By Mouth, 2 times a day, # 20 tablet, 0 Refills, Acute 08/27/22 11:32:00 EST, 08/26/21 11:31:00 EST, Tablet, [facility][id number], Partial fill upon patient request if the [...]
--- OUTSIDE RECORDS SUMMARY | 2024-04-10 10:52 | XMS_ITS | Continuity of Care Document ---
Author Organization [facility] [employer] Address [address] [facility], [address] [place] [address]- Care Team Providers Care Welder Shielded Metal Arc Name Role Phone Kaylah SNOW, Mariposa Cassidy Primary Care Physician [phone] [place] [facility] [place] - 10/07/21 [facility] [address] [facility], [address] [place] [address]- Allergies, Adverse Reactions, Alerts Substance Reaction Severity [...] 08/26/21 11:37:00 EST, Route to Pharmacy Electronically, [facility] #[id number], Partial fill upon patient request if the prescription is for a schedule II opioi... Start Date: 08/26/21 Status: Ordered bisacodyl 10 mg rectal suppository 1 supp = 10 mg, Rectally, Daily, PRN for constipation, # 10 supp, 0 Refills, Maintenance, 08/10/21 18:57:00 EST, Suppository, [facility]/pharmacy #[id number], Partial fill upon patient request if the prescriptionis for a schedule II opioid drug., 158, cm, ... Start Date: 08/10/21 Status: Ordered clotrimazole 1% topical cream 1 application, Topically, 2 times a day, # 15 Gm, 0 Refills, Maintenance, 10/03/21 9:22:00 EDT, Cream, [facility]/pharmacy #[id number], Partial fill upon patient request if the prescription is for a schedule II opioid drug., 1 application Topically 2 times a day,... Start Date: 10/03/21 Status: Ordered clotrimazole 1% vaginal cream with applicator 1 application, Vaginally, Daily at bedtime, for 7 days, # 45 Gm, 0 Refills, Acute 10/13/21 13:30:00EDT, 10/06/21 13:30:00 EDT, Cream, [facility] #[id number], Partial fill upon patient request if the [...] Refills, Maintenance, 08/26/21 11:31:00 EST, CR Tablet, [facility] #[id number], Partial fill upon patient request if the [...] patch, 5 Refills, Maintenance, 06/09/21 18:36:00 EST, [facility] #[id number], Partial fill upon patient request if the prescription is for a schedule II opioid drug., 1 patch Topically, 158, cm, 12/06/20 8... Start Date: 06/09/21 Status: Ordered folic acid 0.4 mg oral tablet 1 tablet = 0.4 mg, By Mouth, Daily, # 100 tablet, 3 Refills, Maintenance, 06/26/21 16:54:00 EST, Tablet, [facility] #[id number], Partial fill upon patient request if the prescription is for a schedule II opioid drug., 158, gerry, 06/24/21 9:16:00 ES... Start Date: 06/26/21 Status: Ordered levothyroxine 150 mcg (0.15 mg) oral tablet 1 tablet = 150 mcg, By Mouth, Daily, # 60 tablet, 1 Refills, Maintenance, 02/17/21 13:28:00 EDT, Tablet, [facility] #[id number], Partial fill upon patient request if the prescription is for a schedule II opioid drug., 158gerry, 12/06/20 8:28:00 ED... Start Date: 02/17/21 Status: [...] 1 Refills, Maintenance, 08/10/21 18:58:00 EST, Tablet, [facility]/pharmacy #[id number], Partial fill upon patient request if the prescription is for a schedule II opioid drug., 158, cm,... Start Date: 08/10/21 Status: Ordered terconazole topical 80 mg suppository 1 supp = 80 mg, Vaginally, Daily at bedtime, for 3 days, Acute, # 3 supp, 0 Refills, Acute 229:24:00 EDT, 10/06/21 9:24:00 EDT, [email or web address] #[id number], Partial fill upon patient [...] patch, 1 Refills, Maintenance, 06/10/21 14:42:00 EST, [facility] #[id number], Partial fill upon patient request if t... Start Date: 06/10/21 Status: Ordered Zofran 4 mg oral tablet 1 tablet = 4 mg, By Mouth, Every 8 hours, PRN as needed for nausea/vomiting, # 20 tablet, 0 Refills, Maintenance, 08/05/21 17:23:00 EST, Tablet, [email or web address] #[id number], Partial fill upon patientrequest if the prescription is for a schedule II op... Start Date: 08/05/21 Status: Ordered Zofran 8 mg oral tablet 1 tablet = 8 mg, By Mouth, 2 times a day, # 20 tablet, 0 Refills, Acute 08/27/22 11:32:00 EST, 08/26/21 11:31:00 EST, Tablet, [email or web address] #[id number], Partial fill upon patient request if the [...]
--- OUTSIDE RECORDS SUMMARY | 2024-04-10 10:52 | XMS_ITS | Continuity of Care Document ---
Author Organization [facility] Address [address] [facility], [address]t [address] [place] [address]- Care Team Providers Care Nuclear Operations Specialist Name Role Phone Not on Staff, PCP Primary Care Physician Unavail able Encounter [facility] Date(s): 06/29/19 - 07/09/19 [facility] [address] [facility], 4th [address] [place] [address] [facility] Attending Physician: Farzad Resendez Admitting Physician: Farzad Resendez Referring Physician: Farzad Resendez
--- OUTSIDE RECORDS SUMMARY | 2024-04-10 10:52 | XMS_ITS | Continuity of Care Document ---
Author Organization [facility] Address [address] [facility], 4t [address] [place] [address]- Care Team Providers Care Unemployment Specialist Name Role Phone Mason Rinaldi MD Primary Care Physician [phone] [place] [facility] [place] 04/07/20 - 04/14/20 [facility] [address], [address] [place] [address]- [facility] Attending Physician: Lee Ann Stephens MD Referring [...] 2 pack/packet, 3 Refills, Maintenance, 01/12/20 17:03:00 EDT,[facility] #[id number], 1 tablet By Mouth Piedad... Start Date: 01/12/20 Status: Ordered cabergoline 0.5 mg oral tablet 1 tablet = 0.5 mg, By Mouth, Daily, Begin 2 hours before hCG injection, # 7 tablet, 0 Refills, Maintenance, 04/08/20 14:58:00 EDT, [facility] #[id number], 158, cm, 03/21/20 8:43:00 EDT, Height, 88.2, [...] 0 Refills, Maintenance, 12/27/19 10:14:00 EDT, Tablet, [facility] #[id number], labs needed prior to next refill, 158, cm, 09/22/19 1... Start Date: 12/27/19 Status: Ordered levothyroxine 175 mcg (0.175 mg) oral tablet 1 tablet = 175 mcg, By Mouth, Daily, # 30 tablet, 3 Refills, Maintenance, 02/01/20 13:20:00 EDT, Tablet, [facility] #[id number], 158, cm, 01/29/20 13:44:00 EDT, Height, 88.2, [...] tablet, 11 Refills, Maintenance, 01/31/20 11:39:00 EDT, [facility] #[id number], 158, cm, 01/29/20 13:44:00 EDT, Height, 88.2, [...] 04/09/20 8:51:00 EDT, Route to Pharmacy Electronically, [facility] #[id number], Partial fill upon patient request, 158, cm, [...] 6 Refills, Maintenance, 02/05/20 15:13:00 EDT, Tablet, [facility] #[id number], 158, cm, 01/29/20 13:44:00 EDT, Height, 88.2, [...] 04/09/20 8:51:00 EDT, Route to Pharmacy Electronically, [facility] #[id number]... Start Date: 04/09/20 Status: Ordered Problem [...]
--- OUTSIDE RECORDS SUMMARY | 2024-04-10 10:52 | XMS_ITS | Continuity of Care Document ---
Author Organization [facility] [employer] Address [address] [place] [address], [address] [place] [address]- Care Team Providers Care Container Packer Operator Name Role Phone Kaylah SNOW, Mariposa Cassidy Primary Care Physician [place] [facility] [place] 10[place]25/21 [facility] [address] [place] [address], [address] [place] [address]- Allergies, Adverse Reactions, Alerts Substance Reaction Severity [...] 08/26/21 11:37:00 EST, Route to Pharmacy Electronically, [facility] #[id number], Partial fill upon patient request if the prescription is for a schedule II opioi... Start Date: 08/26/21 Status: Ordered bisacodyl 10 mg rectal suppository 1 supp = 10 mg, Rectally, Daily, PRN for constipation, # 10 supp, 0 Refills, Maintenance, 08/10/21 18:57:00 EST, Suppository, [facility]/pharmacy #[id number], Partial fill upon patient request if the prescriptionis for a schedule II opioid drug., 158, cm, ... Start Date: 08/10/21 Status: Ordered clotrimazole 1% topical cream 1 application, Topically, 2 times a day, # 15 Gm, 0 Refills, Maintenance, 10/03/21 9:22:00 EDT, Cream, [facility]/pharmacy #[id number], Partial fill upon patient request if the prescription is for a schedule II opioid drug., 1 application Topically 2 times a day,... Start Date: 10/03/21 Status: Ordered cyclobenzaprine 10 mg oral tablet 10 mg, 1, tablet, By Mouth, 3 times a day, PRN, # 42 tablet, Refills 0, Tot. Refills 0, Maintenance, Spasm for spasm, 10/21/21 13:22:00 EDT, Route to Pharmacy Electronically, [facility] #[id number], Partial fill upon patient request if the [...] Refills, Maintenance, 08/26/21 11:31:00 EST, CR Tablet, [facility] #[id number], Partial fill upon patient request if the [...] patch, 5 Refills, Maintenance, 06/09/21 18:36:00 EST, [facility] #[id number], Partial fill upon patient request if the prescription is for a schedule II opioid drug., 1 patch Topically, 158, cm, 12/06/20 8... Start Date: 06/09/21 Status: Ordered folic acid 0.4 mg oral tablet 1 tablet = 0.4 mg, By Mouth, Daily, # 100 tablet, 3 Refills, Maintenance, 06/26/21 16:54:00 EST, Tablet, [facility] #[id number], Partial fill upon patient request if the [...] Refills, Maintenance, 08/10/21 18:58:00 EST, Tablet, [facility]/pharmacy #0693, Partial fill upon patient request if [...] patch, 1 Refills, Maintenance, 06/10/21 14:42:00 EST, [facility] #[id number], Partial fill upon patient request if t... Start Date: 06/10/21 Status: Ordered Zofran 4 mg oral tablet 1 tablet = 4 mg, By Mouth, Every 8 hours, PRN as needed for nausea/vomiting, # 20 tablet, 0 Refills, Maintenance, 08/05/21 17:23:00 EST, Tablet, [facility] #[id number], Partial fill upon patientrequest if the prescription is for a schedule II op... Start Date: 08/05/21 Status: Ordered Zofran 8 mg oral tablet 1 tablet = 8 mg, By Mouth, 2 times a day, # 20 tablet, 0 Refills, Acute 08/27/22 11:32:00 EST, 08/26/21 11:31:00 EST, Tablet, [facility] #[id number], Partial fill upon patient request if the [...]
--- OUTSIDE RECORDS SUMMARY | 2024-04-10 10:53 | XMS_ITS | Continuity of Care Document ---
Author Organization [facility] ter Address [address] [place] [address]- Care Team Providers Care Flat Ironer Name Role Phone Kaylah SNOW, Mariposa Cassidy Primary Care Physician [phone] [place] [facility] [place] - 01/07/[address] [address] Discharge Disposition: A-D/C Home [...] 08/26/21 11:37:00 EST, Route to Pharmacy Electronically, [facility] #[id number], Partial fill upon patient request if the prescription is for a schedule II opioi... Start Date: 08/26/21 Status: Ordered bisacodyl 10 mg rectal suppository 1 supp = 10 mg, Rectally, Daily, PRN for constipation, # 10 supp, 0 Refills, Maintenance, 08/10/21 18:57:00 EST, Suppository, [facility]/pharmacy #[id number], Partial fill upon patient request if the prescriptionis for a schedule II opioid drug., 158, cm, ... Start Date: 08/10/21 Status: Ordered clotrimazole 1% topical cream 1 application, Topically, 2 times a day, # 15 Gm, 0 Refills, Maintenance, 10/03/21 9:22:00 EDT, Cream, [facility]/pharmacy #[id number], Partial fill upon [...] 10/21/21 13:22:00 EDT, Route to Pharmacy Electronically, [facility] #[id number], Partial fill upon patient request if the [...] Refills, Maintenance, 08/26/21 11:31:00 EST, CR Tablet, [facility] #[id number], Partial fill upon patient request if the [...] patch, 5 Refills, Maintenance, 06/09/21 18:36:00 EST, [facility] #[id number], Partial fill upon patient request if the prescription is for a schedule II opioid drug., 1 patch Topically, 158, cm, 12/06/20 8... Start Date: 06/09/21 Status: Ordered folic acid 0.4 mg oral tablet 1 tablet = 0.4 mg, By Mouth, Daily, # 100 tablet, 3 Refills, Maintenance, 06/26/21 16:54:00 EST, Tablet, [facility] #[id number], Partial fill upon patient request if the [...] 1 Refills, Maintenance, 08/10/21 18:58:00 EST, Tablet, [facility]/pharmacy #[id number], Partial fill upon [...] patch, 1 Refills, Maintenance, 06/10/21 14:42:00 EST, [facility] #[id number], Partial fill upon patient request if t... Start Date: 06/10/21 Status: Ordered Zofran 4 mg oral tablet 1 tablet = 4 mg, By Mouth, Every 8 hours, PRN as needed for nausea/vomiting, # 20 tablet, 0 Refills, Maintenance, 08/05/21 17:23:00 EST, Tablet, [facility] #[id number], Partial fill upon patientrequest if the prescription is for a schedule II op... Start Date: 08/05/21 Status: Ordered Zofran 8 mg oral tablet 1 tablet = 8 mg, By Mouth, 2 times a day, # 20 tablet, 0 Refills, Acute 08/27/22 11:32:00 EST, 08/26/21 11:31:00 EST, Tablet, [facility] #[id number], Partial fill upon patient request if the [...] recent to oldest [Reference Range]: 1 Weight 90.3 kg (01/07/22 11:05 AM) Oxygen Saturation [94-100 %] 97 % (01/07/22 11:06 AM) Blood Pressure [90-138/55-84 mm Hg] 103/ 54mm Hg (01/07/22 11:06 AM) Respiratory Rate [16-30 br/min] 18 br/mi n (01/07/22 11:06 AM) Temperature [96.8-100.4 DegF] 98.5 DegF (01/07/22 11:05 AM) Blood pressure sites Arm, left (01/07/22 11:06 AM) Temperature Route Oral (01/07/22 11:05 AM) Dry Weight 90.3 kg (01/07/22 11:05 AM) Weight Obtained Via Standing scale (01/07/22 11:05 AM) Dry Weight Obtained Via Standing scale (01/07/22 11:05 AM) Social History Social History Type Response Smoking Status Never (less than 100 in lifetime) entered on: 08/25/21 Sex
--- OUTSIDE RECORDS SUMMARY | 2024-04-10 10:53 | XMS_ITS | Continuity of Care Document ---
Author Organization [facility] [facility] Address [address] [place] [address], [address] [place] [address]- Care Team Providers Care Senior Database Engineer Name Role Phone Kaylah SNOW, Mariposa Cassidy Primary Care Physician [phone] [place] [facility] [place] [facility]23[facility] [address] [facility], 4th [place] [address]- Allergies, Adverse Reactions, Alerts Substance Reaction Severity [...] 08/26/21 11:37:00 EST, Route to Pharmacy Electronically, [facility] #[id number], Partial fill upon patient request if the prescription is for a schedule II opioi... Start Date: 08/26/21 Status: Ordered bisacodyl 10 mg rectal suppository 1 supp = 10 mg, Rectally, Daily, PRN for constipation, # 10 supp, 0 Refills, Maintenance, 08/10/21 18:57:00 EST, Suppository, [facility]/pharmacy #[id number], Partial fill upon patient request [...] 3 Refills, Maintenance, 06/26/21 16:54:00 EST, Tablet, [facility] #[id number], Partial fill upon patient request if the [...] 60each, 3 Refills, Maintenance, 02/18/22 11:08:00 EDT, [facility] #[id number], Partial fill uponpatient request if the prescription [...] 1 Refills, Maintenance, 08/10/21 18:58:00 EST, Tablet, [facility]/pharmacy #[id number], Partial fill upon patient request if the prescription is for a schedule II opioid drug., 158, cm,... Start Date: 08/10/21 Status: Ordered Zofran 8 mg oral tablet 1 tablet = 8 mg, By Mouth, 2 times a day, # 20 tablet, 0 Refills, Acute 08/27/22 11:32:00 EST, 08/26/21 11:31:00 EST, Tablet, [facility] #[id number], Partial fill upon patient request if the [...]
--- OUTSIDE RECORDS SUMMARY | 2024-04-10 10:53 | XMS_ITS | Continuity of Care Document ---
Author Organization [facility] Address [address] [place] [address]- Care Team Providers Care Dumbwaiter Operator Name Role Phone Mason Rinaldi MD Primary Care Physician [phone] [place] [facility] [place] 04/10/20 [facility] [address] [place] [address]- [facility] Attending Physician: Dasha Wright MD Admitting Physician: [...] 2 pack/packet, 3 Refills, Maintenance, 01/12/20 17:03:00 EDT,[facility] #[id number], 1 tablet By Mouth Piedad... Start Date: 01/12/20 Status: Ordered cabergoline 0.5 mg oral tablet 1 tablet = 0.5 mg, By Mouth, Daily, Begin 2 hours before hCG injection, # 7 tablet, 0 Refills, Maintenance, 04/08/20 14:58:00 EDT, [facility] #[id number], 158, cm, 03/21/20 8:43:00 EDT, Height, 88.2, [...] 0 Refills, Maintenance, 12/27/19 10:14:00 EDT, Tablet, [facility] #[id number], labs needed prior to next refill, 158, cm, 09/22/19 1... Start Date: 12/27/19 Status: Ordered levothyroxine 175 mcg (0.175 mg) oral tablet 1 tablet = 175 mcg, By Mouth, Daily, # 30 tablet, 3 Refills, Maintenance, 02/01/20 13:20:00 EDT, Tablet, [facility] #[id number], 158, cm, 01/29/20 13:44:00 EDT, Height, 88.2, [...] tablet, 11 Refills, Maintenance, 01/31/20 11:39:00 EDT, [facility] #[id number], 158, cm, 01/29/20 13:44:00 EDT, Height, 88.2, [...] 04/09/20 8:51:00 EDT, Route to Pharmacy Electronically, [facility] #[id number], Partial fill upon patient request, 158, cm, [...] 6 Refills, Maintenance, 02/05/20 15:13:00 EDT, Tablet, [facility] #[id number], 158, cm, 01/29/20 13:44:00 EDT, Height, 88.2, [...] 04/09/20 8:51:00 EDT, Route to Pharmacy Electronically, [facility] #[id number]... Start Date: 04/09/20 Status: Ordered Problem [...]
--- OUTSIDE RECORDS SUMMARY | 2024-04-10 10:53 | XMS_ITS | Continuity of Care Document ---
Author Organization [facility] [employer] Address [address] [place] [address], [address] [place] [address]- Care Team Providers Care Slunk Skinner Name Role Phone Kaylah SNOW, Mariposa Cassidy Primary Care Physician [phone] [place] [facility] [place] 11/18/21 - 12/18/21 [facility] [employer] [facility] [address] [place] [address], [address] [place] [address]- Allergies, Adverse Reactions, Alerts Substance Reaction Severity [...] 08/26/21 11:37:00 EST, Route to Pharmacy Electronically, [facility] #[id number], Partial fill upon patient request if the prescription is for a schedule II opioi... Start Date: 08/26/21 Status: Ordered bisacodyl 10 mg rectal suppository 1 supp = 10 mg, Rectally, Daily, PRN for constipation, # 10 supp, 0 Refills, Maintenance, 08/10/21 18:57:00 EST, Suppository, [facility]/pharmacy #[id number], Partial fill upon patient request if the prescriptionis for a schedule II opioid drug., 158, cm, ... Start Date: 08/10/21 Status: Ordered clotrimazole 1% topical cream 1 application, Topically, 2 times a day, # 15 Gm, 0 Refills, Maintenance, 10/03/21 9:22:00 EDT, Cream, [facility]/pharmacy #[id number], Partial fill upon patient [...] 10/21/21 13:22:00 EDT, Route to Pharmacy Electronically, [facility] #[id number], Partial fill upon patient request if the [...] Refills, Maintenance, 08/26/21 11:31:00 EST, CR Tablet, [facility] #[id number], Partial fill upon patient request if the [...] patch, 5 Refills, Maintenance, 06/09/21 18:36:00 EST, [facility] #[id number], Partial fill upon patient request if the prescription is for a schedule II opioid drug., 1 patch Topically, 158, cm, 12/06/20 8... Start Date: 06/09/21 Status: Ordered folic acid 0.4 mg oral tablet 1 tablet = 0.4 mg, By Mouth, Daily, # 100 tablet, 3 Refills, Maintenance, 06/26/21 16:54:00 EST, Tablet, [facility] #[id number], Partial fill upon patient request if the [...] 1 Refills, Maintenance, 08/10/21 18:58:00 EST, Tablet, [facility]/pharmacy #[id number], Partial fill upon patient request if the [...] patch, 1 Refills, Maintenance, 06/10/21 14:42:00 EST, [facility] #[id number], Partial fill upon patient request if t... Start Date: 06/10/21 Status: Ordered Zofran 4 mg oral tablet 1 tablet = 4 mg, By Mouth, Every 8 hours, PRN as needed for nausea/vomiting, # 20 tablet, 0 Refills, Maintenance, 08/05/21 17:23:00 EST, Tablet, [facility] #[id number], Partial fill upon patientrequest if the prescription is for a schedule II op... Start Date: 08/05/21 Status: Ordered Zofran 8 mg oral tablet 1 tablet = 8 mg, By Mouth, 2 times a day, # 20 tablet, 0 Refills, Acute 08/27/22 11:32:00 EST, 08/26/21 11:31:00 EST, Tablet, [facility] #[id number], Partial fill upon patient request if the [...]
--- OUTSIDE RECORDS SUMMARY | 2024-04-10 10:53 | XMS_ITS | Continuity of Care Document ---
Author Organization [facility] [place] [employer] Address [address] [place] [address], [address]t [place] [address]- Care Team Providers Care Produce Wrapper Name Role Phone Kaylah SNOW, Mariposa Cassidy Primary Care Phys[id number] Date(s[facility] 10/01/21 - 10/31/21 [facility] [address] [facility], [address] [place] [address]- Allergies, Adverse Reactions, Alerts Substance Reaction Severity [...] 08/26/21 11:37:00 EST, Route to Pharmacy Electronically, [facility] #[id number], Partial fill upon patient request if the prescription is for a schedule II opioi... Start Date: 08/26/21 Status: Ordered bisacodyl 10 mg rectal suppository 1 supp = 10 mg, Rectally, Daily, PRN for constipation, # 10 supp, 0 Refills, Maintenance, 08/10/21 18:57:00 EST, Suppository, [facility]/pharmacy #[id number], Partial fill upon patient request if the prescriptionis for a schedule II opioid drug., 158, cm, ... Start Date: 08/10/21 Status: Ordered clotrimazole 1% topical cream 1 application, Topically, 2 times a day, # 15 Gm, 0 Refills, Maintenance, 10/03/21 9:22:00 EDT, Cream, [facility]/pharmacy #[id number], Partial fill upon patient request [...] 10/21/21 13:22:00 EDT, Route to Pharmacy Electronically, [facility] #[id number], Partial fill upon patient request if the [...] Refills, Maintenance, 08/26/21 11:31:00 EST, CR Tablet, [facility] #[id number], Partial fill upon patient request if the [...] patch, 5 Refills, Maintenance, 06/09/21 18:36:00 EST, [facility] #[id number], Partial fill upon patient request if the prescription is for a schedule II opioid drug., 1 patch Topically, 158, cm, 12/06/20 8... Start Date: 06/09/21 Status: Ordered folic acid 0.4 mg oral tablet 1 tablet = 0.4 mg, By Mouth, Daily, # 100 tablet, 3 Refills, Maintenance, 06/26/21 16:54:00 EST, Tablet, [facility] #[id number], Partial fill upon patient request if the [...] 5Refills, Maintenance, 07/09/21 10:58:00 EST, [facility], Partial fill upon patient request if the prescription is for a schedule II opioid... Start Date: 07/09/21 Status: Ordered Reglan 5 mg oral tablet 1 tablet = 5 mg, By Mouth, Every 6 hours, PRN Nausea & Vomiting, # 90 tablet, 1 Refills, Maintenance, 08/10/21 18:58:00 EST, Tablet, [facility]/pharmacy #[id number], Partial fill upon patient request if the [...] patch, 1 Refills, Maintenance, 06/10/21 14:42:00 EST, [facility] #[id number], Partial fill upon patient request if t... Start Date: 06/10/21 Status: Ordered Zofran 4 mg oral tablet 1 tablet = 4 mg, By Mouth, Every 8 hours, PRN as needed for nausea/vomiting, # 20 tablet, 0 Refills, Maintenance, 08/05/21 17:23:00 EST, Tablet, [facility] #[id number], Partial fill upon patientrequest if the prescription is for a schedule II op... Start Date: 08/05/21 Status: Ordered Zofran 8 mg oral tablet 1 tablet = 8 mg, By Mouth, 2 times a day, # 20 tablet, 0 Refills, Acute 08/27/22 11:32:00 EST, 08/26/21 11:31:00 EST, Tablet, [facility] #[id number], Partial fill upon patient request if the [...]
--- OUTSIDE RECORDS SUMMARY | 2024-04-10 10:53 | XMS_ITS | Continuity of Care Document ---
Author Organization [facility] [employer] Address [address] [place] [address], [address] [place] [address]- Care Team Providers Care Crop And Soil Technician Name Role Phone Kaylah SNOW, Mariposa Cassidy Primary Care Physician Encounter [facility] [id number] Date(s): 03/18/22 - 05/09/22 [facility] [address] [facility], [address] [place], [place] [address] Attending Physician: Mary Herrera MD Allergies, Adverse Reactions, [...] 0 Refills, Maintenance, 03/05/22 22:26:00 EDT, Capsule, [facility] #[id number], Partial fill upon patient request if the prescription is for a schedule II opioid drBrenda Start Date: 03/05/22 Status: Ordered aspirin 81 mg oral tablet, chewable 162 mg, 2, tablet, Chew, Daily, # 60 tablet, Refills 8, Tot. Refills 8, Maintenance, 08/26/21 11:37:00 EST, Route to Pharmacy Electronically, [facility] #[id number], Partial fill upon patient request if the prescription is for a schedule II opioi... Start Date: 08/26/21 Status: Ordered Colace sodium 100 mg oral capsule 100 mg, 1, capsule, By Mouth, 2 times a day, PRN, # 20 capsule, Refills 0, Tot. Refills 0, Maintenance, for constipation, 03/05/22 22:26:00 EDT, Route to Pharmacy Electronically, [facility]#[id number], Partial fill upon patient request if the pr... Start Date: 03/05/22 Status: Ordered ibuprofen 600 mg oral tablet 600 mg, 1, tablet, By Mouth, Every 6 hours, # 50 tablet, Refills 0, Tot. Refills 0, Maintenance, 03/05/22 22:26:00 EDT, Route to Pharmacy Electronically, [facility] #[id number], Partial fill upon patient request if the [...] 0 Refills, Soft Stop, 04/09/22 10:41:00 EDT, [facility], Partial fill upon patient request if the prescription is for a schedule II opioid drug., 158, cm, 03/19/22 15:29:00 EDT, Height, 90... Start Date: 04/09/22 Status: Ordered oxyCODONE 5 mg oral tablet 10 mg, 2, tablet, By Mouth, Every 6 hours, PRN, # 12 tablet, Refills 0, Tot. Refills 0, Maintenance, for pain, 03/05/22 22:26:00 EDT, Route to Pharmacy Electronically, [facility] #[id number], Partial fill upon patient request if the [...] 0 Refills, Maintenance, 03/05/22 22:26:00 EDT,Chew Tablet, [facility] #[id number], Partial fill upon patient request if the prescription is for a schedule II opioid drug., 158, cm, 03/05/22 20... Start Date: 03/05/22 Status: Ordered Zoloft 25 mg oral tablet 1 tablet = 25 mg, By Mouth, Daily, 1 tablet orally daily x1 week, then increase to 2 tablets a day,# 30 tablet, 0 Refills, Maintenance, 04/10/22 11:20:00 EDT, Tablet, [facility] #[id number], Partial fill upon patient request if the [...] Name: Mariposa Adrian NP Address: Address: [address] [place], [place] [address]
--- OUTSIDE RECORDS SUMMARY | 2024-04-10 10:53 | XMS_ITS | Continuity of Care Document ---
Author Organization [facility] [employer] [facility] Address [address] [place] [address], [address] [place] [address]- Care Team Providers Care Batch Heat Treat Operator Name Role Phone Kaylah SNOW, Mariposa Cassidy Primary Care Physician En[facility] Date(s): 03/02/22 - 04/01/22 [facility] [address] [facility], 4th [place] [address]- Allergies, Adverse Reactions, Alerts Substance Reaction Severity [...] 0 Refills, Maintenance, 03/05/22 22:26:00 EDT, Capsule, [facility] #[id number], Partial fill upon patient request if the prescription is for a schedule II opioid drBrenda Start Date: 03/05/22 Status: Ordered aspirin 81 mg oral tablet, chewable 162 mg, 2, tablet, Chew, Daily, # 60 tablet, Refills 8, Tot. Refills 8, Maintenance, 08/26/21 11:37:00 EST, Route to Pharmacy Electronically, [facility] #[id number], Partial fill upon patient request if the prescription is for a schedule II opioi... Start Date: 08/26/21 Status: Ordered Colace sodium 100 mg oral capsule 100 mg, 1, capsule, By Mouth, 2 times a day, PRN, # 20 capsule, Refills 0, Tot. Refills 0, Maintenance, for constipation, 03/05/22 22:26:00 EDT, Route to Pharmacy Electronically, [facility]#[id number], Partial fill upon patient request if the pr... Start Date: 03/05/22 Status: Ordered ibuprofen 600 mg oral tablet 600 mg, 1, tablet, By Mouth, Every 6 hours, # 50 tablet, Refills 0, Tot. Refills 0, Maintenance, 03/05/22 22:26:00 EDT, Route to Pharmacy Electronically, [facility] #[id number], Partial fill upon patient request if the [...] 03/05/22 22:26:00 EDT, Route to Pharmacy Electronically, [facility] #[id number], Partial fill upon patient request if the [...] 0 Refills, Maintenance, 03/05/22 22:26:00 EDT,Chew Tablet, [facility][id number], Partial fill upon patient request if the [...] Team Personnel Name: Mariposa Adrian NP Address: [address] [place] [id number]-
--- OUTSIDE RECORDS SUMMARY | 2024-04-10 10:53 | XMS_ITS | Continuity of Care Document ---
Author Organization [facility] Address [address] [place] [address]- Care Team Providers Care Career Technology Teacher Name Role Phone Kaylah SNOW, Mariposa Cassidy Primary Care Physician [phone] Encounter [facility] Date(s): 02/23/22 - 02/23/[address] [address] Discharge Disposition: A-D/C Home Attending Physician: Sofía [...] 08/26/21 11:37:00 EST, Route to Pharmacy Electronically, [facility] #[id number], Partial fill upon patient request if the prescription is for a schedule II opioi... Start Date: 08/26/21 Status: Ordered bisacodyl 10 mg rectal suppository 1 supp = 10 mg, Rectally, Daily, PRN for constipation, # 10 supp, 0 Refills, Maintenance, 08/10/21 18:57:00 EST, Suppository, [facility]/pharmacy #[id number], Partial fill upon patient request if the [...] 3 Refills, Maintenance, 06/26/21 16:54:00 EST, Tablet, [facility] #[id number], Partial fill upon patient request if the [...] 60each, 3 Refills, Maintenance, 02/18/22 11:08:00 EDT, [facility] #[id number], Partial fill uponpatient request if the prescription [...] 1 Refills, Maintenance, 08/10/21 18:58:00 EST, Tablet, [facility]/pharmacy #[id number], Partial fill upon patient request if the prescription is for a schedule II opioid drug., 158, cm,... Start Date: 08/10/21 Status: Ordered Zofran 8 mg oral tablet 1 tablet = 8 mg, By Mouth, 2 times a day, # 20 tablet, 0 Refills, Acute 08/27/22 11:32:00 EST, 08/26/21 11:31:00 EST, Tablet, [facility] #[id number], Partial fill upon patient request if the [...]
--- OUTSIDE RECORDS SUMMARY | 2024-04-10 10:53 | XMS_ITS | Continuity of Care Document ---
Author Organization [facility] Address [address] [facility], [address]t [address] [place] [address]- Care Team Providers Care Lamp Shades Supervisor Name Role Phone Mason Rinaldi MD Primary Care Physician En[place] [facility] Date(s): 07/02/20 - 07/09/20 [facility] [address] [facility], 4th [address] [place], [place] [address] Attending Physician: Lee Ann Stephens MD Referring [...] each, 0 Refills, Maintenance, 05/09/20 7:54:00 EDT, [facility], 158, cm, 05/02/20 14:32:00 EDT, Height, 88.2, kg, 01/09/19 16:14:00 EDT, Dry Weight Start Date: 05/09/20 Status: Ordered Folbic oral tablet 1 tablet, By Mouth, Daily, # 30 tablet, 11 Refills, Maintenance, 07/05/20 10:24:00 EST, [facility] #[id number], Partial fill upon patient request if the prescription is for a schedule II opioid drug., 1 tablet By Mouth Daily, 158, cm, 05/02/20 14... Start Date: 07/05/20 Status: Ordered metFORMIN 500 mg oral tablet, extended release 3 tablet = 1,500 mg, By Mouth, Daily, with evening meal, # 90 tablet, 11 Refills, Maintenance, 01/31/20 11:39:00 EDT, [facility] #[id number], 158, cm, 01/29/20 13:44:00 EDT, Height, 88.2, [...] 05/31/20 15:20:00 EST, Route to Pharmacy Electronically, [facility] #[id number], Partial fill upon patient request, 158, cm, [...] 6 Refills, Maintenance, 02/05/20 15:13:00 EDT, Tablet, [facility] #[id number], 158, cm, 01/29/20 13:44:00 EDT, Height, 88.2, kg, 01/09/19 16:14:00 EDT, Dry Weight Start Date: 02/05/20 Status: Ordered Zofran 8 mg oral tablet 1 tablet = 8 mg, By Mouth, Every 8 hours, PRN Nausea & Vomiting, # 10 tablet, 0 Refills, Maintenance, 05/31/20 11:44:00 EST, Tablet, [facility] #[id number], Partial fill upon patient request, 158, cm, [...] o user in household: No entered on: 6/7/16 Sex
--- OUTSIDE RECORDS SUMMARY | 2024-04-10 10:53 | XMS_ITS | Continuity of Care Document ---
Author Organization [facility] [employer] Address [address] [place] [address], [address] [place] [address]- Care Team Providers Care Office Technology Instructor Name Role Phone Kaylah SNOW, Mariposa Cassidy Primary Care Physician [id number] Date(s): 11/05/21 - 12/05/21 [facility] [address] [facility], [address] [place], [place] [address] Allergies, Adverse Reactions, Alerts Substance Reaction [...] 08/26/21 11:37:00 EST, Route to Pharmacy Electronically, [facility] #[id number], Partial fill upon patient request if the prescription is for a schedule II opioi... Start Date: 08/26/21 Status: Ordered bisacodyl 10 mg rectal suppository 1 supp = 10 mg, Rectally, Daily, PRN for constipation, # 10 supp, 0 Refills, Maintenance, 08/10/21 18:57:00 EST, Suppository, [facility]/pharmacy #[id number], Partial fill upon patient request if the prescriptionis for a schedule II opioid drug., 158, cm, ... Start Date: 08/10/21 Status: Ordered clotrimazole 1% topical cream 1 application, Topically, 2 times a day, # 15 Gm, 0 Refills, Maintenance, 10/03/21 9:22:00 EDT, Cream, [facility]/pharmacy #[id number], Partial fill upon patient request if the prescription is for a schedule II opioid drug., 1 application Topically 2 times a day,... Start Date: 10/03/21 Status: Ordered cyclobenzaprine 10 mg oral tablet 10 mg, 1, tablet, By Mouth, 3 times a day, PRN, # 42 tablet, Refills 0, Tot. Refills 0, Maintenance, Spasm for spasm, 10/21/21 13:22:00 EDT, Route to Pharmacy Electronically, [facility] #[id number], Partial fill upon patient request if the [...] Refills, Maintenance, 08/26/21 11:31:00 EST, CR Tablet, [facility] #[id number], Partial fill upon patient request if the [...] patch, 5 Refills, Maintenance, 06/09/21 18:36:00 EST, [facility] #[id number], Partial fill upon patient request if the prescription is for a schedule II opioid drug., 1 patch Topically, 158, cm, 12/06/20 8... Start Date: 06/09/21 Status: Ordered folic acid 0.4 mg oral tablet 1 tablet = 0.4 mg, By Mouth, Daily, # 100 tablet, 3 Refills, Maintenance, 06/26/21 16:54:00 EST, Tablet, [facility] #[id number], Partial fill upon patient request if the [...] 1 Refills, Maintenance, 08/10/21 18:58:00 EST, Tablet, [facility]/pharmacy #[id number], Partial fill upon patient request if [...] patch, 1 Refills, Maintenance, 06/10/21 14:42:00 EST, [facility] #[id number], Partial fill upon patient request if t... Start Date: 06/10/21 Status: Ordered Zofran 4 mg oral tablet 1 tablet = 4 mg, By Mouth, Every 8 hours, PRN as needed for nausea/vomiting, # 20 tablet, 0 Refills, Maintenance, 08/05/21 17:23:00 EST, Tablet, [facility] #[id number], Partial fill upon patientrequest if the prescription is for a schedule II op... Start Date: 08/05/21 Status: Ordered Zofran 8 mg oral tablet 1 tablet = 8 mg, By Mouth, 2 times a day, # 20 tablet, 0 Refills, Acute 08/27/22 11:32:00 EST, 08/26/21 11:31:00 EST, Tablet, [facility] #[id number], Partial fill upon patient request if the [...]
--- OUTSIDE RECORDS SUMMARY | 2024-04-10 10:53 | XMS_ITS | Continuity of Care Document ---
Author Organization [facility] Address [address] [place] [address]- Care Team Providers Care Air Bag Builder Name Role Phone Kaylah SNOW, Mariposa Cassidy Primary Care Physician [phone] [facility] [facility] [place] 02/21/24 - 03/22/24 [facility] [address] [place] [address]- Allergies, Adverse Reactions, Alerts Substance Reaction Severity Status codeine red itchy Active morphine rash Active Adhesive Bandage 1 Active aspirin red [...] 2 Refills, Maintenance, 09/17/23 15:00:00 EST, Tablet, [facility] #[id number], Partial fill upon patient request if the [...] Active PCOS (polycystic ovarian syndrome) Confirmed Active Social History Social History Type Response Smoking Status Never (less than 100 in lifetime) entered on: 08/25/21 Sex Female Patient Care team information Care Team Personnel Name: Vidya Lobo RN Position: [facility] RN Member Role: Primary Care Nurse Name: Joy Herron RN Position: [facility] PATRICE Nurse Member Role: Primary Care Nurse Name: Mariposa Adrian NP Position: Reference Physician Member Role: PCP Address: Address: [address] [place] [address]- Care Team Related Persons Name: POLO MANRIQUEZ Address: home [address] [place] [address] Name: MAGUI MANRIQUEZ Address: [address] Address: home [address] [place] [address] [place] Name: ALCIDES WARNER Address: home [address] [address]
--- OUTSIDE RECORDS SUMMARY | 2024-04-10 10:53 | XMS_ITS | Continuity of Care Document ---
Author Organization [facility] [facility] Address [address] [place] [address], [address] [place] [address]- Care Team Providers Care Thermoplastic Technician Name Role Phone Kaylah SNOW, Mariposa Cassidy Primary Care Physician [id number] Date(s): 01/09/22 - 01/16/22 [facility] [address] [place] [address], [address] [place], [place] [address] Attending Physician: Yong REYES, Sofía Staley Allergies, [...] 08/26/21 11:37:00 EST, Route to Pharmacy Electronically, [facility] #[id number], Partial fill upon patient request if the prescription is for a schedule II opioi... Start Date: 08/26/21 Status: Ordered bisacodyl 10 mg rectal suppository 1 supp = 10 mg, Rectally, Daily, PRN for constipation, # 10 supp, 0 Refills, Maintenance, 08/10/21 18:57:00 EST, Suppository, [facility]/pharmacy #[id number], Partial fill upon [...] Refills, Maintenance, 08/26/21 11:31:00 EST, CR Tablet, [facility] #[id number], Partial fill upon patient request if the prescription is for a schedule II opioid drug., 2 tablet By Mouth Daily... Start Date: 08/26/21 Status: Ordered folic acid 0.4 mg oral tablet 1 tablet = 0.4 mg, By Mouth, Daily, # 100 tablet, 3 Refills, Maintenance, 06/26/21 16:54:00 EST, Tablet, [facility] #[id number], Partial fill upon patient request if the [...] 1 Refills, Maintenance, 08/10/21 18:58:00 EST, Tablet, [facility]/pharmacy #[id number], Partial fill upon patient request if the prescription is for a schedule II opioid drug., 158, cm,... Start Date: 08/10/21 Status: Ordered Zofran 8 mg oral tablet 1 tablet = 8 mg, By Mouth, 2 times a day, # 20 tablet, 0 Refills, Acute 08/27/22 11:32:00 EST, 08/26/21 11:31:00 EST, Tablet, [facility] #[id number], Partial fill upon patient request if the [...] oldest [Reference Range]: 1 Height 158 cm (01/09/22 1:33 PM) Weight 90 kg (01/09/22 1:33 PM) Body Mass Index [18.5-24.99] 36.05 *>HHI* (01/09/22 1:33 PM) Blood Pressure [90-138/55-84 mm Hg] 109/ 59mm Hg (01/09/22 1:33 PM) Blood pressure sites Arm, left (01/09/22 1:33 PM) Weight Obtained Via Standing scale (01/09/22 1:33 PM) Social History Social History Type Response Smoking Status Never (less than 100 in lifetime) entered on: 08/25/21 Sex
--- OUTSIDE RECORDS SUMMARY | 2024-04-10 10:53 | XMS_ITS | Continuity of Care Document ---
Author Organization [facility] [facility] Address [address] [facility], 4t [place] [address]- Care Team Providers Care Prison Teacher Name Role Phone Kaylah SNOW, Mariopsa Cassidy Primary Care Physician [phone] [place] [facility] [place]/04/21 - 10/04/21 [facility] [address] [facility], [address]th [place] [address]- Allergies, Adverse Reactions, Alerts Substance Reaction Severity [...] 08/26/21 11:37:00 EST, Route to Pharmacy Electronically, [facility] #[id number], Partial fill upon patient request if the prescription is for a schedule II opioi... Start Date: 08/26/21 Status: Ordered bisacodyl 10 mg rectal suppository 1 supp = 10 mg, Rectally, Daily, PRN for constipation, # 10 supp, 0 Refills, Maintenance, 08/10/21 18:57:00 EST, Suppository, [facility]/pharmacy #[id number], Partial fill upon patient request if the prescriptionis for a schedule II opioid drug., 158, cm, ... Start Date: 08/10/21 Status: Ordered clotrimazole 1% topical cream 1 application, Topically, 2 times a day, # 15 Gm, 0 Refills, Maintenance, 10/03/21 9:22:00 EDT, Cream, [facility]/pharmacy #[id number], Partial fill upon patient request [...] Refills, Maintenance, 08/26/21 11:31:00 EST, CR Tablet, [facility] #[id number], Partial fill upon patient request if the [...] patch, 5 Refills, Maintenance, 06/09/21 18:36:00 EST, [facility][id number], Partial fill upon patient request if the prescription is for a schedule II opioid drug., 1 patch Topically, 158, cm, 12/06/20 8... Start Date: 06/09/21 Status: Ordered folic acid 0.4 mg oral tablet 1 tablet = 0.4 mg, By Mouth, Daily, # 100 tablet, 3 Refills, Maintenance, 06/26/21 16:54:00 EST, Tablet, [facility] #[id number], Partial fill upon patient request if the prescription is for a schedule II opioid drug., 158, cm, 06/24/21 9:16:00 ES... Start Date: 06/26/21 Status: Ordered levothyroxine 150 mcg (0.15 mg) oral tablet 1 tablet = 150 mcg, By Mouth, Daily, # 60 tablet, 1 Refills, Maintenance, 02/17/21 13:28:00 EDT, Tablet, [facility] #[id number], Partial fill upon patient request if the [...] 1 Refills, Maintenance, 08/10/21 18:58:00 EST, Tablet, [facility]/pharmacy #[id number], Partial fill upon patient request if the prescription is for a schedule II opioid drug., 158, cm,... Start Date: 08/10/21 Status: Ordered terconazole topical 80 mg suppository 1 supp = 80 mg, Vaginally, Daily at bedtime, for 3 days, Acute, # 3 supp, 0 Refills, Acute 03/21/229:24:00 EDT, 10/03/21 9:24:00 EDT, [facility]/pharmacy #[id number], Partial fill upon patient request if the prescription is for a schedule II opioid drug., 1 supp... Start Date: 10/03/21 Stop Date: 10/06/21 Status: Ordered terconazole topical 80 mg suppository 1 supp = 80 mg, Vaginally, Daily at bedtime, for 3 days, Acute, # 3 supp, 0 Refills, Acute 229:24:00 EDT, 10/06/21 9:24:00 EDT, [facility] #[id number], Partial fill upon patient request if the [...] patch, 1 Refills, Maintenance, 06/10/21 14:42:00 EST, [facility] #[id number], Partial fill upon patient request if t... Start Date: 06/10/21 Status: Ordered Zofran 4 mg oral tablet 1 tablet = 4 mg, By Mouth, Every 8 hours, PRN as needed for nausea/vomiting, # 20 tablet, 0 Refills, Maintenance, 08/05/21 17:23:00 EST, Tablet, [facility] #[id number], Partial fill upon patientrequest if the prescription is for a schedule II op... Start Date: 08/05/21 Status: Ordered Zofran 8 mg oral tablet 1 tablet = 8 mg, By Mouth, 2 times a day, # 20 tablet, 0 Refills, Acute 08/27/22 11:32:00 EST, 08/26/21 11:31:00 EST, Tablet, [facility] #[id number], Partial fill upon patient request if the [...]
--- OUTSIDE RECORDS SUMMARY | 2024-04-10 10:53 | XMS_ITS | Continuity of Care Document ---
Author Organization [facility] Address [address] [place] [address]- Care Team Providers Care Advertising Supervisor Name Role Phone Kaylah SNOW, Mariposa Cassidy Primary Care Physician [place] [facility] [place] - [place]22 [facility] [address] [place] [address]- Allergies, Adverse Reactions, Alerts Substance Reaction Severity [...] 08/26/21 11:37:00 EST, Route to Pharmacy Electronically, [facility] #[id number], Partial fill upon patient request if the prescription is for a schedule II opioi... Start Date: 08/26/21 Status: Ordered bisacodyl 10 mg rectal suppository 1 supp = 10 mg, Rectally, Daily, PRN for constipation, # 10 supp, 0 Refills, Maintenance, 08/10/21 18:57:00 EST, Suppository, [facility]/pharmacy #[id number], Partial fill upon patient request if [...] 3 Refills, Maintenance, 06/26/21 16:54:00 EST, Tablet, [facility] #[id number], Partial fill upon patient request if the [...] Refills, Maintenance, 08/10/21 18:58:00 EST, Tablet, [facility]/pharmacy #[id number], Partial fill upon patient request if the prescription is for a schedule II opioid drug., 158, cm,... Start Date: 08/10/21 Status: Ordered Zofran 8 mg oral tablet 1 tablet = 8 mg, By Mouth, 2 times a day, # 20 tablet, 0 Refills, Acute 08/27/22 11:32:00 EST, 08/26/21 11:31:00 EST, Tablet, [facility] #[id number], Partial fill upon patient request if the [...]
--- OUTSIDE RECORDS SUMMARY | 2024-04-10 10:53 | XMS_ITS | Continuity of Care Document ---
Author Organization [facility] Address [address], [address]t [address] [place] [address]- Care Team Providers Care Feather Curling Machine Operator Name Role Phone Mason Rinaldi MD Primary Care Physician Encounter [facility] [place] Date(s): 03/11/20 - 04/10/20 [facility] [address], 4[address] [place] [address]- [facility] Allergies, Adverse Reactions, Alerts Substance Reaction Severity [...] 2 pack/packet, 3 Refills, Maintenance, 01/12/20 17:03:00 EDT,[facility] #[id number], 1 tablet By Mouth Piedad... Start Date: 01/12/20 Status: Ordered cabergoline 0.5 mg oral tablet 1 tablet = 0.5 mg, By Mouth, Daily, Begin 2 hours before hCG injection, # 7 tablet, 0 Refills, Maintenance, 04/08/20 14:58:00 EDT, [facility] #[id number], 158, cm, 03/21/20 8:43:00 EDT, Height, 88.2, [...] 0 Refills, Maintenance, 12/27/19 10:14:00 EDT, Tablet, [facility] #[id number], labs needed prior to next refill, 158, cm, 09/22/19 1... Start Date: 12/27/19 Status: Ordered levothyroxine 175 mcg (0.175 mg) oral tablet 1 tablet = 175 mcg, By Mouth, Daily, # 30 tablet, 3 Refills, Maintenance, 02/01/20 13:20:00 EDT, Tablet, [facility] #[id number], 158, cm, 01/29/20 13:44:00 EDT, Height, 88.2, [...] tablet, 11 Refills, Maintenance, 01/31/20 11:39:00 EDT, [facility] #[id number], 158, cm, 01/29/20 13:44:00 EDT, Height, 88.2, [...] 04/09/20 8:51:00 EDT, Route to Pharmacy Electronically, [facility] #[id number], Partial fill upon patient request, 158, cm, [...] 6 Refills, Maintenance, 02/05/20 15:13:00 EDT, Tablet, [facility] #[id number], 158, cm, 01/29/20 13:44:00 EDT, Height, 88.2, [...] 04/09/20 8:51:00 EDT, Route to Pharmacy Electronically, [facility] #[id number]... Start Date: 04/09/20 Status: Ordered Problem [...]
--- OUTSIDE RECORDS SUMMARY | 2024-04-10 10:53 | XMS_ITS | Continuity of Care Document ---
Author Organization [facility] Address [address] [place] [address]- Care Team Providers Care Cardiopulmonary Technician And Eeg Tech Name Role Phone Mason Rinaldi MD Primary Care Physician [phone] [place] [facility] [place] - 04/06/20 [facility] [address] [place] [address]- [facility] Allergies, Adverse Reactions, Alerts [...] 2 pack/packet, 3 Refills, Maintenance, 01/12/20 17:03:00 EDT,[facility] #[id number], 1 tablet By Mouth Piedad... Start Date: [...] 0 Refills, Maintenance, 12/27/19 10:14:00 EDT, Tablet, [facility] #[id number], labs needed prior to next refill, 158, cm, 09/22/19 1... Start Date: 12/27/19 Status: Ordered levothyroxine 175 mcg (0.175 mg) oral tablet 1 tablet = 175 mcg, By Mouth, Daily, # 30 tablet, 3 Refills, Maintenance, 02/01/20 13:20:00 EDT, Tablet, [facility] #[id number], 158, cm, 01/29/20 13:44:00 EDT, Height, 88.2, [...] tablet, 11 Refills, Maintenance, 01/31/20 11:39:00 EDT, [facility] #[id number], 158, cm, 01/29/20 13:44:00 EDT, Height, 88.2, [...] 6 Refills, Maintenance, 02/05/20 15:13:00 EDT, Tablet, [facility] #[id number], 158, cm, 01/29/20 13:44:00 EDT, Height, 88.2, [...]
--- OUTSIDE RECORDS SUMMARY | 2024-04-10 10:53 | XMS_ITS | Continuity of Care Document ---
Author Organization [facility] ter Address [address] [place] [address]- Care Team Providers Care Janitorial Supervisor Name Role Phone Mason Rinaldi MD Primary Care Physician [id number] Date(s): 07/27/19 - 08/03/[address] [address]- [facility] Attending Physician: Deidra Luong MD Allergies, Adverse [...] Refills, Maintenance, 08/01/19 12:52:00 EST,[facility] - [address] [place] [address], 1 tablet By Mouth Daily,... Start Date: [...]
--- OUTSIDE RECORDS SUMMARY | 2024-04-10 10:53 | XMS_ITS | Continuity of Care Document ---
Author Organization [facility] ter Address [address] [place] [address]- Care Team Providers Care Clinical Services Director Name Role Phone Kaylah SNOW, Mariposa M [id number] - 03/20/[address] [address] Attending Physician: Sofía Beach MD Admitting Physician: [...] 0 Refills, Maintenance, 03/05/22 22:26:00 EDT, Capsule, [facility] #[id number], Partial fill upon patient request if the prescription is for a schedule II opioid . Start Date: 03/05/22 Status: Ordered aspirin 81 mg oral tablet, chewable 162 mg, 2, tablet, Chew, Daily, # 60 tablet, Refills 8, Tot. Refills 8, Maintenance, 08/26/21 11:37:00 EST, Route to Pharmacy Electronically, [facility] #[id number], Partial fill upon patient request if the prescription is for a schedule II opioi... Start Date: 08/26/21 Status: Ordered Colace sodium 100 mg oral capsule 100 mg, 1, capsule, By Mouth, 2 times a day, PRN, # 20 capsule, Refills 0, Tot. Refills 0, Maintenance, for constipation, 03/05/22 22:26:00 EDT, Route to Pharmacy Electronically, [facility]#[id number], Partial fill upon patient request if the pr... Start Date: 03/05/22 Status: Ordered ibuprofen 600 mg oral tablet 600 mg, 1, tablet, By Mouth, Every 6 hours, # 50 tablet, Refills 0, Tot. Refills 0, Maintenance, 03/05/22 22:26:00 EDT, Route to Pharmacy Electronically, [facility] #[id number], Partial fill upon patient request if the [...] 03/05/22 22:26:00 EDT, Route to Pharmacy Electronically, [facility] #[id number], Partial fill upon patient request if the [...] 0 Refills, Maintenance, 03/05/22 22:26:00 EDT,Chew Tablet, [facility] #[id number], Partial fill upon patient request if the [...] Personnel Name: Mariposa Adrian NP Address: [address] [place] [address]-
--- OUTSIDE RECORDS SUMMARY | 2024-04-10 10:53 | XMS_ITS | Continuity of Care Document ---
Author Organization [facility] [email or web address] Address [address] [place] [address], [address] [place] [address]- Care Team Providers Care Appliance Worker Name Role Phone Kaylah SNOW, Mariposa Cassidy Primary Care Physician [phone] Encounter [facility] [place] Date(s): 09/23/21 - 09/30/21 [facility] [employer] [facility] [address] [place] [address], [address] [place] [address]- Attending Physician: Yong REYES, Sofía Staley Referring Physician: Marvin REYES, [facility] Lexi Allergies, Adverse Reactions, Alerts Substance Reaction [...] 08/26/21 11:37:00 EST, Route to Pharmacy Electronically, [facility] #[id number], Partial fill upon patient request if the prescription is for a schedule II opioi... Start Date: 08/26/21 Status: Ordered bisacodyl 10 mg rectal suppository 1 supp = 10 mg, Rectally, Daily, PRN for constipation, # 10 supp, 0 Refills, Maintenance, 08/10/21 18:57:00 EST, Suppository, [facility]/pharmacy #[id number], Partial fill upon patient request if [...] Refills, Maintenance, 08/26/21 11:31:00 EST, CR Tablet, [facility] #[id number], Partial fill upon patient request if the [...] patch, 5 Refills, Maintenance, 06/09/21 18:36:00 EST, [facility] #[id number], Partial fill upon patient request if the prescription is for a schedule II opioid drug., 1 patch Topically, 158, cm, 12/06/20 8... Start Date: 06/09/21 Status: Ordered folic acid 0.4 mg oral tablet 1 tablet = 0.4 mg, By Mouth, Daily, # 100 tablet, 3 Refills, Maintenance, 06/26/21 16:54:00 EST, Tablet, [facility] #[id number], Partial fill upon patient request if the prescription is for a schedule II opioid drug., 158, cm, 06/24/21 9:16:00 ES... Start Date: 06/26/21 Status: Ordered levothyroxine 150 mcg (0.15 mg) oral tablet 1 tablet = 150 mcg, By Mouth, Daily, # 60 tablet, 1 Refills, Maintenance, 02/17/21 13:28:00 EDT, Tablet, [facility] #[id number], Partial fill upon patient request if the [...] Refills, Maintenance, 06/09/21 15:38:00 EST, [facility], Partial fill upon patient request [...] 5Refills, Maintenance, 07/09/21 10:58:00 EST, [facility], Partial fill upon patient request if the prescription is for a schedule II opioid... Start Date: 07/09/21 Status: Ordered Reglan 5 mg oral tablet 1 tablet = 5 mg, By Mouth, Every 6 hours, PRN Nausea & Vomiting, # 90 tablet, 1 Refills, Maintenance, 08/10/21 18:58:00 EST, Tablet, [facility]/pharmacy #[id number], Partial fill upon patient request if the [...] patch, 1 Refills, Maintenance, 06/10/21 14:42:00 EST, [facility] #[id number], Partial fill upon patient request if t... Start Date: 06/10/21 Status: Ordered Zofran 4 mg oral tablet 1 tablet = 4 mg, By Mouth, Every 8 hours, PRN as needed for nausea/vomiting, # 20 tablet, 0 Refills, Maintenance, 08/05/21 17:23:00 EST, Tablet, [facility] #[id number], Partial fill upon patientrequest if the prescription is for a schedule II op... Start Date: 08/05/21 Status: Ordered Zofran 8 mg oral tablet 1 tablet = 8 mg, By Mouth, 2 times a day, # 20 tablet, 0 Refills, Acute 08/27/22 11:32:00 EST, 08/26/21 11:31:00 EST, Tablet, [facility] #[id number], Partial fill upon patient request if the [...] oldest [Reference Range]: 1 Height 158 cm (09/23/21 1:23 PM) Weight 86.36 kg (09/23/21 1:23 PM) Body Mass Index [18.5-24.99] 34.59 *>HHI* (09/23/21 1:23 PM) Blood Pressure [90-138/55-84 mm Hg] 112/ 66mm Hg (09/23/21 1:23 PM) Blood pressure sites Arm, right (09/23/21 1:23 PM) Weight Obtained Via Standing scale (09/23/21 1:23 PM) Social History Social History Type Response Smoking Status Never (less than 100 in lifetime) entered on: 08/25/21 Sex
--- OUTSIDE RECORDS SUMMARY | 2024-04-10 10:53 | XMS_ITS | Continuity of Care Document ---
Author Organization [facility] ter Address [address] [place] [address]- Care Team Providers Care Sr. Strategic Sourcing Manager Name Role Phone Kaylah SNOW, Mariposa Cassidy Primary Care Physician [phone] [place] [facility] [place] - 02/16/[address] [address] Discharge Disposition: A-D/C Home Attending Physician: [...] 08/26/21 11:37:00 EST, Route to Pharmacy Electronically, [facility] #[id number], Partial fill upon patient request if the prescription is for a schedule II opioi... Start Date: 08/26/21 Status: Ordered bisacodyl 10 mg rectal suppository 1 supp = 10 mg, Rectally, Daily, PRN for constipation, # 10 supp, 0 Refills, Maintenance, 08/10/21 18:57:00 EST, Suppository, [facility]/pharmacy #[id number], Partial fill upon patient request if the [...] 3 Refills, Maintenance, 06/26/21 16:54:00 EST, Tablet, [facility] #[id number], Partial fill upon patient request if the [...] 1 Refills, Maintenance, 08/10/21 18:58:00 EST, Tablet, [facility]/pharmacy #[id number], Partial fill upon patient request if the prescription is for a schedule II opioid drug., 158, cm,... Start Date: 08/10/21 Status: Ordered Zofran 8 mg oral tablet 1 tablet = 8 mg, By Mouth, 2 times a day, # 20 tablet, 0 Refills, Acute 08/27/22 11:32:00 EST, 08/26/21 11:31:00 EST, Tablet, [facility] #[id number], Partial fill upon patient request if the [...]
--- OUTSIDE RECORDS SUMMARY | 2024-04-10 10:53 | XMS_ITS | Continuity of Care Document ---
Author Organization [facility] Address [address], 4t [address] [place] [address]- Care Team Providers Care Power Plant Superintendent Name Role Phone Mason Rinaldi MD Primary Care Physician Encounter [facility] [place] Date(s): 06/03/20 - 07/03/20 [facility] Reproductive Medicine [address], 4th [address] [place] [address]- Allergies, Adverse Reactions, Alerts Substance Reaction Severity [...] each, 0 Refills, Maintenance, 05/09/20 7:54:00 EDT, [facility], 158, cm, 05/02/20 14:32:00 EDT, Height, 88.2, kg, 01/09/19 16:14:00 EDT, Dry Weight Start Date: 05/09/20 Status: Ordered metFORMIN 500 mg oral tablet, extended release 3 tablet = 1,500 mg, By Mouth, Daily, with evening meal, # 90 tablet, 11 Refills, Maintenance, 01/31/20 11:39:00 EDT, [facility] #[id number], 158, cm, 01/29/20 13:44:00 EDT, Height, 88.2, [...] 05/31/20 15:20:00 EST, Route to Pharmacy Electronically, [facility] #[id number], Partial fill upon patient request, 158, cm, [...] 6 Refills, Maintenance, 02/05/20 15:13:00 EDT, Tablet, [facility] #[id number], 158, cm, 01/29/20 13:44:00 EDT, Height, 88.2, kg, 01/09/19 16:14:00 EDT, Dry Weight Start Date: 02/05/20 Status: Ordered Zofran 8 mg oral tablet 1 tablet = 8 mg, By Mouth, Every 8 hours, PRN Nausea & Vomiting, # 10 tablet, 0 Refills, Maintenance, 05/31/20 11:44:00 EST, Tablet, [facility] #[id number], Partial fill upon patient request, 158, cm, [...]
--- OUTSIDE RECORDS SUMMARY | 2024-04-10 10:53 | XMS_ITS | Continuity of Care Document ---
Author Organization [facility] [employer] Address [address] [place] [address], [address] [place] [address]- Care Team Providers Care Operations Support Representative Name Role Phone Kaylah SNOW, Mariposa Cassidy Primary Care Physician [phone] [place] [facility] [place] 12/02/21 - 01/01/22 [facility] [address] [facility], [address] [place] [address]- Allergies, Adverse Reactions, Alerts Substance Reaction Severity [...] 08/26/21 11:37:00 EST, Route to Pharmacy Electronically, [facility] #[id number], Partial fill upon patient request if the prescription is for a schedule II opioi... Start Date: 08/26/21 Status: Ordered bisacodyl 10 mg rectal suppository 1 supp = 10 mg, Rectally, Daily, PRN for constipation, # 10 supp, 0 Refills, Maintenance, 08/10/21 18:57:00 EST, Suppository, [facility]/pharmacy #[id number], Partial fill upon patient request if the prescriptionis for a schedule II opioid drug., 158, cm, ... Start Date: 08/10/21 Status: Ordered clotrimazole 1% topical cream 1 application, Topically, 2 times a day, # 15 Gm, 0 Refills, Maintenance, 10/03/21 9:22:00 EDT, Cream, [facility]/pharmacy #[id number], Partial fill upon patient request if the prescription is for a schedule II opioid drug., 1 application Topically 2 times a day,... Start Date: 10/03/21 Status: Ordered cyclobenzaprine 10 mg oral tablet 10 mg, 1, tablet, By Mouth, 3 times a day, PRN, # 42 tablet, Refills 0, Tot. Refills 0, Maintenance, Spasm for spasm, 10/21/21 13:22:00 EDT, Route to Pharmacy Electronically, [facility] #[id number], Partial fill upon patient request if the [...] Refills, Maintenance, 08/26/21 11:31:00 EST, CR Tablet, [facility] #[id number], Partial fill upon patient request if the [...] patch, 5 Refills, Maintenance, 06/09/21 18:36:00 EST, [facility] #[id number], Partial fill upon patient request if the prescription is for a schedule II opioid drug., 1 patch Topically, 158, cm, 12/06/20 8... Start Date: 06/09/21 Status: Ordered folic acid 0.4 mg oral tablet 1 tablet = 0.4 mg, By Mouth, Daily, # 100 tablet, 3 Refills, Maintenance, 06/26/21 16:54:00 EST, Tablet, [facility] #[id number], Partial fill upon patient request if the [...] 1 Refills, Maintenance, 08/10/21 18:58:00 EST, Tablet, [facility]/pharmacy #[id number], Partial fill upon patient request if [...] patch, 1 Refills, Maintenance, 06/10/21 14:42:00 EST, [facility] #[id number], Partial fill upon patient request if t... Start Date: 06/10/21 Status: Ordered Zofran 4 mg oral tablet 1 tablet = 4 mg, By Mouth, Every 8 hours, PRN as needed for nausea/vomiting, # 20 tablet, 0 Refills, Maintenance, 08/05/21 17:23:00 EST, Tablet, [facility] #[id number], Partial fill upon patientrequest if the prescription is for a schedule II op... Start Date: 08/05/21 Status: Ordered Zofran 8 mg oral tablet 1 tablet = 8 mg, By Mouth, 2 times a day, # 20 tablet, 0 Refills, Acute 08/27/22 11:32:00 EST, 08/26/21 11:31:00 EST, Tablet, [facility] #[id number], Partial fill upon patient request if the [...]
--- OUTSIDE RECORDS SUMMARY | 2024-04-10 10:53 | XMS_ITS | Continuity of Care Document ---
Author Organization [facility] [employer] Address [address] [place] [address], [address] [address]- Care Team Providers Care Loaf Counter Name Role Phone Kaylah SNOW, Mariposa Cassidy [id number] - 10[facility]17/[facility] [address] [facility], [address] [place], [place] [address] Allergies, Adverse Reactions, Alerts Substance Reaction Severity [...] Acute 10/22/21 14:40:00 EDT,10/17/21 14:40:00 EDT, Tablet, [facility], Partial fill upon patient request if [...] 08/26/21 11:37:00 EST, Route to Pharmacy Electronically, [facility] #[id number], Partial fill upon patient request if the [...] Refills, Maintenance, 08/26/21 11:31:00 EST, CR Tablet, [facility] #[id number], Partial fill upon patient request if the [...] patch, 5 Refills, Maintenance, 06/09/21 18:36:00 EST, [facility] #[id number], Partial fill upon patient request if the prescription is for a schedule II opioid drug., 1 patch Topically, 158, cm, 12/06/20 8... Start Date: 06/09/21 Status: Ordered folic acid 0.4 mg oral tablet 1 tablet = 0.4 mg, By Mouth, Daily, # 100 tablet, 3 Refills, Maintenance, 06/26/21 16:54:00 EST, Tablet, [facility] #[id number], Partial fill upon patient request if the [...] patch, 1 Refills, Maintenance, 06/10/21 14:42:00 EST, [facility] #[id number], Partial fill upon patient request if t... Start Date: 06/10/21 Status: Ordered Zofran 4 mg oral tablet 1 tablet = 4 mg, By Mouth, Every 8 hours, PRN as needed for nausea/vomiting, # 20 tablet, 0 Refills, Maintenance, 08/05/21 17:23:00 EST, Tablet, [facility] #[id number], Partial fill upon patientrequest if the prescription is for a schedule II op... Start Date: 08/05/21 Status: Ordered Zofran 8 mg oral tablet 1 tablet = 8 mg, By Mouth, 2 times a day, # 20 tablet, 0 Refills, Acute 08/27/22 11:32:00 EST, 08/26/21 11:31:00 EST, Tablet, [facility] #[id number], Partial fill upon patient request if the [...]
--- OUTSIDE RECORDS SUMMARY | 2024-04-10 10:53 | XMS_ITS | Continuity of Care Document ---
Author Organization [facility] Address [address] [place] [address]- Care Team Providers Care Ortho/Prosthetic Aide Name Role Phone Mariposa Adrian NP Primary Care Physician Encounter [facility] [place] Date(s): 10/03/21 - 01/31/22 [facility] [address] [place] [address] Attending Physician: Skye Mcintosh MD Admitting Physician: Skye Mcintosh MD Referring Physician: Mariposa Adrian NP Allergies, [...] 08/26/21 11:37:00 EST, Route to Pharmacy Electronically, [facility] #[id number], Partial fill upon patient request if the prescription is for a schedule II opioi... Start Date: 08/26/21 Status: Ordered bisacodyl 10 mg rectal suppository 1 supp = 10 mg, Rectally, Daily, PRN for constipation, # 10 supp, 0 Refills, Maintenance, 08/10/21 18:57:00 EST, Suppository, [facility]/pharmacy #[id number], Partial fill upon patient request if the [...] 3 Refills, Maintenance, 06/26/21 16:54:00 EST, Tablet, [facility] #[id number], Partial fill upon patient request if the [...] 08/27/22 11:32:00 EST, 08/26/21 11:31:00 EST, Tablet, [facility] #[id number], Partial fill upon patient request if the [...]
--- OUTSIDE RECORDS SUMMARY | 2024-04-10 10:53 | XMS_ITS | Continuity of Care Document ---
Author Organization [facility] Address Unknown Care Team Providers Care Clinical Systems Analyst Name Role Phone Kaylah SNOW, Mariposa Cassidy Primary Care Physician Encounter [facility] [place] Date(s): 06/18/21 - 07/18/21 [facility] Allergies, Adverse Reactions, Alerts [...] patch, 5 Refills, Maintenance, 06/09/21 18:36:00 EST, [facility] #[id number], Partial fill upon patient request if the prescription is for a schedule II opioid drug., 1 patch Topically, 158, cm, 12/06/20 8... Start Date: 06/09/21 Status: Ordered folic acid 0.4 mg oral tablet 1 tablet = 0.4 mg, By Mouth, Daily, # 100 tablet, 3 Refills, Maintenance, 06/26/21 16:54:00 EST, Tablet, [facility] #[id number], Partial fill upon patient request if the prescription is for a schedule II opioid drug., 158, cm, 06/24/21 9:16:00 ES... Start Date: 06/26/21 Status: Ordered levothyroxine 150 mcg (0.15 mg) oral tablet 1 tablet = 150 mcg, By Mouth, Daily, # 60 tablet, 1 Refills, Maintenance, 02/17/21 13:28:00 EDT, Tablet, [facility] #[id number], Partial fill upon patient request if the prescription is for a schedule II opioid drug., 158, cm, 12/06/20 8:28:00 ED... Start Date: 02/17/21 Status: Ordered metFORMIN 500 mg oral tablet, extended release 3 tablet = 1,500 mg, By Mouth, Daily, with evening meal, # 90 tablet, 11 Refills, Maintenance, 01/31/20 11:39:00 EDT, [facility] #[id number], 158, cm, 01/29/20 13:44:00 EDT, Height, 88.2, [...] 07/17/21 16:04:00 EST, Route to Pharmacy Electronically, [facility] #[id number], Partial fill upon patient request, 158, cm, [...] 05/26/21 11:44:00 EST, Route to Pharmacy Electronically, [facility] #[id number], Partial fill upon patientrequest if the prescription is for a schedule II op... Start Date: 05/26/21 Stop Date: 06/05/21 Status: Ordered Provera 10 mg oral tablet 10 mg, 1, tablet, By Mouth, Daily, # 7 tablet, Refills 0, Tot. Refills 0, Maintenance, 02/17/21 13:23:00 EDT, Route to Pharmacy Electronically, [facility] #[id number], Partial fill upon patient request if the prescription is for a schedule II opi... Start Date: 02/17/21 Stop Date: 02/24/21 Status: Ordered Valium 5 mg oral tablet 5 mg, 1, tablet, By Mouth, order caller to Procedure, May need to repeat!, # 2 tablet, Refills 0, Tot. Refills 0, Maintenance, 06/25/21 10:29:00 EST, Route to Pharmacy Electronically, [facility]#[id number], Partial fill upon patient request if the pr... Start Date: 06/25/21 Status: Ordered Vivelle-Dot 0.1 mg/24 hours twice weekly transdermal film, extended release See Instructions, Place 1 patch on day 1-4 then 2 patches on day 5-10 and then 4 patches on day 11-14 changing patches QOD., # 8 patch, 1 Refills, Maintenance, 06/10/21 14:42:00 EST, [facility] #[id number], Partial fill upon patient request if t... [...]
--- OUTSIDE RECORDS SUMMARY | 2024-04-10 10:53 | XMS_ITS | Continuity of Care Document ---
Author Organization [facility] [email or web address] Address [address] [place] [address], [address] [place] [address]- Care Team Providers Care Mail Handler Sorter Name Role Phone Lesser Mason REYES Primary Care Physician [place] [facility] [place] 02/24/20 [email or web address] [address], [address] [place] [address]- [facility] Allergies, Adverse Reactions, Alerts Substance Reaction [...] 2 pack/packet, 3 Refills, Maintenance, 01/12/20 17:03:00 EDT,[facility] #[id number], 1 tablet By Mouth Piedad... Start Date: [...] 0 Refills, Maintenance, 12/27/19 10:14:00 EDT, Tablet, [facility] #[id number], labs needed prior to next refill, 158, cm, 09/22/19 1... Start Date: 12/27/19 Status: Ordered levothyroxine 175 mcg (0.175 mg) oral tablet 1 tablet = 175 mcg, By Mouth, Daily, # 30 tablet, 3 Refills, Maintenance, 02/01/20 13:20:00 EDT, Tablet, [facility] #[id number], 158, cm, 01/29/20 13:44:00 EDT, Height, 88.2, [...] tablet, 11 Refills, Maintenance, 01/31/20 11:39:00 EDT, [facility] #[id number], 158, cm, 01/29/20 13:44:00 EDT, Height, 88.2, [...] 6 Refills, Maintenance, 02/05/20 15:13:00 EDT, Tablet, [facility] #[id number], 158, cm, 01/29/20 13:44:00 EDT, Height, 88.2, [...]
--- OUTSIDE RECORDS SUMMARY | 2024-04-10 10:54 | XMS_ITS | Continuity of Care Document ---
Author Organization [facility] Address Unknown Care Team Providers Care Hot Head Machine Operator Name Role Phone Kaylah SNOW, Mariposa Cassidy Primary Care Physician En[place] [facility] [place] Date(s): 06/09/21 - 07/09/21 [facility] Allergies, Adverse Reactions, Alerts [...] patch, 5 Refills, Maintenance, 06/09/21 18:36:00 EST, [facility] #[id number], Partial fill upon patient request if the prescription is for a schedule II opioid drug., 1 patch Topically, 158, cm, 12/06/20 8... Start Date: 06/09/21 Status: Ordered folic acid 0.4 mg oral tablet 1 tablet = 0.4 mg, By Mouth, Daily, # 100 tablet, 3 Refills, Maintenance, 06/26/21 16:54:00 EST, Tablet, [facility] #[id number], Partial fill upon patient request if the prescription is for a schedule II opioid drug., 158, cm, 06/24/21 9:16:00 ES... Start Date: 06/26/21 Status: Ordered levothyroxine 150 mcg (0.15 mg) oral tablet 1 tablet = 150 mcg, By Mouth, Daily, # 60 tablet, 1 Refills, Maintenance, 02/17/21 13:28:00 EDT, Tablet, [facility] #[id number], Partial fill upon patient request if the prescription is for a schedule II opioid drug., 158, cm, 12/06/20 8:28:00 ED... Start Date: 02/17/21 Status: Ordered metFORMIN 500 mg oral tablet, extended release 3 tablet = 1,500 mg, By Mouth, Daily, with evening meal, # 90 tablet, 11 Refills, Maintenance, 01/31/20 11:39:00 EDT, [facility] #[id number], 158, cm, 01/29/20 13:44:00 EDT, Height, 88.2, kg, 01/09/19 16:14:00 EDT, Dry Weight Start Date: 01/31/20 Stop Date: 01/25/21 Status: Ordered methylPREDNISolone 16 mg oral tablet = 16 mg, By Mouth, Daily, Take for 4 days when instructed with the last dose being the day of frozen embryo transfer, # 4 tablet, 0 Refills, Maintenance, 06/09/21 15:38:00 EST, [facility], Partial fill upon patient request if the [...] Maintenance, 07/09/21 10:58:00 EST, [facility], Partial fill upon patient request if the prescription is for a schedule II opioid... Start Date: 07/09/21 Status: Ordered Provera 10 mg oral tablet 10 mg, 1, tablet, By Mouth, Daily, # 10 tablet, Refills 0, Tot. Refills 0, Maintenance, 05/26/21 11:44:00 EST, Route to Pharmacy Electronically, [facility] #[id number], Partial fill upon patientrequest if the prescription is for a schedule II op... Start Date: 05/26/21 Stop Date: 06/05/21 Status: Ordered Provera 10 mg oral tablet 10 mg, 1, tablet, By Mouth, Daily, # 7 tablet, Refills 0, Tot. Refills 0, Maintenance, 02/17/21 13:23:00 EDT, Route to Pharmacy Electronically, [facility] #[id number], Partial fill upon patient request if the prescription is for a schedule II opi... Start Date: 02/17/21 Stop Date: 02/24/21 Status: Ordered Valium 5 mg oral tablet 5 mg, 1, tablet, By Mouth, call center team leader to Procedure, May need to repeat!, # 2 tablet, Refills 0, Tot. Refills 0, Maintenance, 06/25/21 10:29:00 EST, Route to Pharmacy Electronically, [facility]#[id number], Partial fill upon patient request if the pr... Start Date: 06/25/21 Status: Ordered Vivelle-Dot 0.1 mg/24 hours twice weekly transdermal film, extended release See Instructions, Place 1 patch on day 1-4 then 2 patches on day 5-10 and then 4 patches on day 11-14 changing patches QOD., # 8 patch, 1 Refills, Maintenance, 06/10/21 14:42:00 EST, [facility] #[id number], Partial fill upon patient request if t... [...]
--- OUTSIDE RECORDS SUMMARY | 2024-04-10 10:54 | XMS_ITS | Continuity of Care Document ---
Author Organization [facility] [employer] [facility] Address [address], [address]t [place] [address]- Care Team Providers Care First Line Production Supervisor Name Role Phone Kaylah SNOW, Mariposa Cassidy Primary Care Physician [phone] Encounter [facility] [place] Date(s): 09/08/21 - 10/08/21 [facility] [employer] [address], [address] [place] [address]- Allergies, Adverse Reactions, Alerts Substance Reaction Severity [...] 08/26/21 11:37:00 EST, Route to Pharmacy Electronically, [facility] #[id number], Partial fill upon patient request if the prescription is for a schedule II opioi... Start Date: 08/26/21 Status: Ordered bisacodyl 10 mg rectal suppository 1 supp = 10 mg, Rectally, Daily, PRN for constipation, # 10 supp, 0 Refills, Maintenance, 08/10/21 18:57:00 EST, Suppository, [facility]/pharmacy #[id number], Partial fill upon patient request if the prescriptionis for a schedule II opioid drug., 158, cm, ... Start Date: 08/10/21 Status: Ordered clotrimazole 1% topical cream 1 application, Topically, 2 times a day, # 15 Gm, 0 Refills, Maintenance, 10/03/21 9:22:00 EDT, Cream, [facility]/pharmacy #[id number], Partial fill upon patient request if the prescription is for a schedule II opioid drug., 1 application Topically 2 times a day,... Start Date: 10/03/21 Status: Ordered clotrimazole 1% vaginal cream with applicator 1 application, Vaginally, Daily at bedtime, for 7 days, # 45 Gm, 0 Refills, Acute 10/13/21 13:30:00EDT, 10/06/21 13:30:00 EDT, Cream, [facility] #[id number], Partial fill upon patient request if the [...] Refills, Maintenance, 08/26/21 11:31:00 EST, CR Tablet, [facility] #[id number], Partial fill upon patient request if the [...] patch, 5 Refills, Maintenance, 06/09/21 18:36:00 EST, [facility] #[id number], Partial fill upon patient request if the prescription is for a schedule II opioid drug., 1 patch Topically, 158, cm, 12/06/20 8... Start Date: 06/09/21 Status: Ordered folic acid 0.4 mg oral tablet 1 tablet = 0.4 mg, By Mouth, Daily, # 100 tablet, 3 Refills, Maintenance, 06/26/21 16:54:00 EST, Tablet, [facility] #[id number], Partial fill upon patient request if the prescription is for a schedule II opioid drug., 158, gerry, 06/24/21 9:16:00 ES... Start Date: 06/26/21 Status: Ordered levothyroxine 150 mcg (0.15 mg) oral tablet 1 tablet = 150 mcg, By Mouth, Daily, # 60 tablet, 1 Refills, Maintenance, 02/17/21 13:28:00 EDT, Tablet, [facility] #[id number], Partial fill upon patient request if the [...] 1 Refills, Maintenance, 08/10/21 18:58:00 EST, Tablet, [facility]/pharmacy #[id number], Partial fill upon patient request if the prescription is for a schedule II opioid drug., 158, cm,... Start Date: 08/10/21 Status: Ordered terconazole topical 80 mg suppository 1 supp = 80 mg, Vaginally, Daily at bedtime, for 3 days, Acute, # 3 supp, 0 Refills, Acute 229:24:00 EDT, 10/06/21 9:24:00 EDT, [facility] #[id number], Partial fill upon patient request if the [...] patch, 1 Refills, Maintenance, 06/10/21 14:42:00 EST, [facility] #[id number], Partial fill upon patient request if t... Start Date: 06/10/21 Status: Ordered Zofran 4 mg oral tablet 1 tablet = 4 mg, By Mouth, Every 8 hours, PRN as needed for nausea/vomiting, # 20 tablet, 0 Refills, Maintenance, 08/05/21 17:23:00 EST, Tablet, [facility] #[id number], Partial fill upon patientrequest if the prescription is for a schedule II op... Start Date: 08/05/21 Status: Ordered Zofran 8 mg oral tablet 1 tablet = 8 mg, By Mouth, 2 times a day, # 20 tablet, 0 Refills, Acute 08/27/22 11:32:00 EST, 08/26/21 11:31:00 EST, Tablet, [facility] #[id number], Partial fill upon patient request if the [...]
--- OUTSIDE RECORDS SUMMARY | 2024-04-10 10:54 | XMS_ITS | Continuity of Care Document ---
Author Organization [facility] Address [address], [address] [place] [address]- Care Team Providers Care Gas Desulfurizer Name Role Phone Mason Rinaldi MD Primary Care Physician Encounter [facility] [place] Date(s): 01/31/20 - 02/07/20 [facility] [address], [address] [place] [address]- [facility] Attending Physician: Deidra Luong MD Referring Physician: [...] 2 pack/packet, 3 Refills, Maintenance, 01/12/20 17:03:00 EDT,[facility] #[id number], 1 tablet By Mouth Piedad... Start Date: [...] 0 Refills, Maintenance, 12/27/19 10:14:00 EDT, Tablet, [facility] #[id number], labs needed prior to next refill, 158, cm, 09/22/19 1... Start Date: 12/27/19 Status: Ordered levothyroxine 175 mcg (0.175 mg) oral tablet 1 tablet = 175 mcg, By Mouth, Daily, # 30 tablet, 3 Refills, Maintenance, 02/01/20 13:20:00 EDT, Tablet, [facility] #[id number], 158, cm, 01/29/20 13:44:00 EDT, Height, 88.2, [...] tablet, 11 Refills, Maintenance, 01/31/20 11:39:00 EDT, [facility] #[id number], 158, cm, 01/29/20 13:44:00 EDT, Height, 88.2, [...] 6 Refills, Maintenance, 02/05/20 15:13:00 EDT, Tablet, [facility] #[id number], 158, cm, 01/29/20 13:44:00 EDT, Height, 88.2, [...] oldest [Reference Range]: 1 Height 158 cm (01/29/20 1:44 PM) Social History Social History Type Response Smoking Status Never smoker; Tobacc o user in household: No entered on: 12/24/15 Sex
--- OUTSIDE RECORDS SUMMARY | 2024-04-10 10:54 | XMS_ITS | Continuity of Care Document ---
Author Organization [facility] Address [address] [place] [address]- Care Team Providers Care Memory Care Director Name Role Phone Kaylah SNOW, Mariposa Cassidy Primary Care Physician Encounter [facility] [place] Date(s): 09/16/23 - 10/16/23 [facility] [address] [place] [address]- Allergies, Adverse Reactions, Alerts Substance Reaction Severity [...] 2 Refills, Maintenance, 09/17/23 15:00:00 EST, Tablet, [facility] #[id number], Partial fill upon patient request if the [...] in lifetime) entered on: 08/25/21 Sex Female Hospital Progress note * Shaikh ERIC, Arturo: PERFORM Event Display: Progress Note Hospital Authored Date: [id number] Patient: ??JONATAN MANRIQUEZ ? Age:??38 Years?Sex:??Female?:??1985?? Received a message from the patient asking for refill on??levothyroxine. ??I spoke with the patienton the phone today. ??She ran out of the levothyroxine prescription more than 2 weeks ago and has not taken any levothyroxine since then.?? Patient has history of total thyroidectomy??many years ago??for multinodular goiter. 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 ??Patient reported she is feeling fatigued??and constipated.?? A prescription of levothyroxine 150 mcg??was sent to the patient's pharmacy and patient was encouraged to have a??thyroid function tests??before her next clinic appointment. ? Arturo Louie MD Endocrinology Fellow PGY-4 Patient Care team information Care Team Personnel Name: Vidya Lobo RN Position: Sarita THOMAS RN Member Role: Primary Care Nurse Name: Joy Herron RN Position: Sarita RN Member Role: Primary Care Nurse Name: Mariposa Adrian NP Position: Reference Physician Member Role: PCP Address: Address: [address] [place] [address]- Care Team Related Persons Name: POLO MANRIQUEZ Address: [address] [place] [address] Name: MAGUI MANRIQUEZ Address: [id number] Address: [address] [place] [address] [place] Name: ALCIDES WARNER Address: home [address] [address]
--- OUTSIDE RECORDS SUMMARY | 2024-04-10 10:54 | XMS_ITS | Continuity of Care Document ---
Author Organization [facility] Address [address], 4[address] [place] [address]- Care Team Providers Care Email Campaign Manager Name Role Phone Mason Rinaldi MD Primary Care Physician En[place] [facility] [place] Date(s): 08/23/20 - 09/26/20 [facility] [address], 4[address] [place], [place] [address] Attending Physician: Lee Ann Stephens MD Referring [...] each, 0 Refills, Maintenance, 05/09/20 7:54:00 EDT, [facility], 158, cm, 05/02/20 14:32:00 EDT, Height, 88.2, kg, 01/09/19 16:14:00 EDT, Dry Weight Start Date: 05/09/20 Status: Ordered Folbic oral tablet 1 tablet, By Mouth, Daily, # 30 tablet, 11 Refills, Maintenance, 07/05/20 10:24:00 EST, [facility] #[id number], Partial fill upon patient request if the prescription is for a schedule II opioid drug., 1 tablet By Mouth Daily, 158, cm, 05/02/20 14... Start Date: 07/05/20 Status: Ordered metFORMIN 500 mg oral tablet, extended release 3 tablet = 1,500 mg, By Mouth, Daily, with evening meal, # 90 tablet, 11 Refills, Maintenance, 01/31/20 11:39:00 EDT, [facility] #[id number], 158, cm, 01/29/20 13:44:00 EDT, Height, 88.2, [...] 05/31/20 15:20:00 EST, Route to Pharmacy Electronically, [facility] #[id number], Partial fill upon patient request, 158, cm, [...] 6 Refills, Maintenance, 02/05/20 15:13:00 EDT, Tablet, [facility] #[id number], 158, cm, 01/29/20 13:44:00 EDT, Height, 88.2, kg, 01/09/19 16:14:00 EDT, Dry Weight Start Date: 02/05/20 Status: Ordered Zofran 8 mg oral tablet 1 tablet = 8 mg, By Mouth, Every 8 hours, PRN Nausea & Vomiting, # 10 tablet, 0 Refills, Maintenance, 05/31/20 11:44:00 EST, Tablet, [facility] #[id number], Partial fill upon patient request, 158, cm, [...]
--- OUTSIDE RECORDS SUMMARY | 2024-04-10 10:54 | XMS_ITS | Continuity of Care Document ---
Author Organization [facility] [employer] Address [address] [place] [address], [address] [place] [address]- Care Team Providers Care Funeral Prearrangement Counselor Name Role Phone Lesser Mason REYES Primary Care Physician [phone] [place] [facility] [place]/17/20 - 02/16/20 [facility] [employer] [address] [place] [address]- [facility] Allergies, Adverse Reactions, Alerts Substance Reaction Severity [...] 2 pack/packet, 3 Refills, Maintenance, 01/12/20 17:03:00 EDT,[facility] #[id number], 1 tablet By Mouth Piedad... Start Date: [...] 0 Refills, Maintenance, 12/27/19 10:14:00 EDT, Tablet, [facility] #[id number], labs needed prior to next refill, 158, cm, 09/22/19 1... Start Date: 12/27/19 Status: Ordered levothyroxine 175 mcg (0.175 mg) oral tablet 1 tablet = 175 mcg, By Mouth, Daily, # 30 tablet, 3 Refills, Maintenance, 02/01/20 13:20:00 EDT, Tablet, [facility] #[id number], 158, cm, 01/29/20 13:44:00 EDT, Height, 88.2, [...] tablet, 11 Refills, Maintenance, 01/31/20 11:39:00 EDT, [facility] #[id number], 158, cm, 01/29/20 13:44:00 EDT, Height, 88.2, [...] 6 Refills, Maintenance, 02/05/20 15:13:00 EDT, Tablet, [facility] #[id number], 158, cm, 01/29/20 13:44:00 EDT, Height, 88.2, [...]
--- OUTSIDE RECORDS SUMMARY | 2024-04-10 10:54 | XMS_ITS | Continuity of Care Document ---
Author Organization [facility] Address Unknown Care Team Providers Care Denture Model Maker Name Role Phone Kaylah SNOW, Mariposa Cassidy Primary Care Physician [place] [facility] [place]s): 05/26/21 - 06/25/21 [facility] Allergies, Adverse Reactions, Alerts [...] patch, 5 Refills, Maintenance, 06/09/21 18:36:00 EST, [facility] #[id number], Partial fill upon patient request if the prescription is for a schedule II opioid drug., 1 patch Topically, 158, cm, 12/06/20 8... Start Date: 06/09/21 Status: Ordered Folbic oral tablet 1 tablet, By Mouth, Daily, # 30 tablet, 11 Refills, Maintenance, 06/09/21 15:40:00 EST, [facility], Partial fill upon patient request if the prescription is for a schedule II opioid drug., 1 tablet By Mouth Daily, 158, cm, 12/06/20 8:28:00... Start Date: 06/09/21 Status: Ordered levothyroxine 150 mcg (0.15 mg) oral tablet 1 tablet = 150 mcg, By Mouth, Daily, # 60 tablet, 1 Refills, Maintenance, 02/17/21 13:28:00 EDT, Tablet, [facility] #[id number], Partial fill upon patient request if the prescription is for a schedule II opioid drug., 158, cm, 12/06/20 8:28:00 ED... Start Date: 02/17/21 Status: Ordered metFORMIN 500 mg oral tablet, extended release 3 tablet = 1,500 mg, By Mouth, Daily, with evening meal, # 90 tablet, 11 Refills, Maintenance, 01/31/20 11:39:00 EDT, [facility] #[id number], 158, cm, 01/29/20 13:44:00 EDT, Height, 88.2, kg, 01/09/19 16:14:00 EDT, Dry Weight Start Date: 01/31/20 Stop Date: 01/25/21 Status: Ordered methylPREDNISolone 16 mg oral tablet = 16 mg, By Mouth, Daily, Take for 4 days when instructed with the last dose being the day of frozen embryo transfer, # 4 tablet, 0 Refills, Maintenance, 06/09/21 15:38:00 EST, [facility], Partial fill upon patient request if [...] 05/26/21 11:44:00 EST, Route to Pharmacy Electronically, [facility] #[id number], Partial fill upon patientrequest if the prescription is for a schedule II op... Start Date: 05/26/21 Stop Date: 06/05/21 Status: Ordered Provera 10 mg oral tablet 10 mg, 1, tablet, By Mouth, Daily, # 7 tablet, Refills 0, Tot. Refills 0, Maintenance, 02/17/21 13:23:00 EDT, Route to Pharmacy Electronically, [facility] #[id number], Partial fill upon patient request if the prescription is for a schedule II opi... Start Date: 02/17/21 Stop Date: 02/24/21 Status: Ordered Valium 5 mg oral tablet 5 mg, 1, tablet, By Mouth, hotel baggage handler to Procedure, May need to repeat!, # 2 tablet, Refills 0, Tot. Refills 0, Maintenance, 06/25/21 10:29:00 EST, Route to Pharmacy Electronically, [facility]#[id number], Partial fill upon patient request if the pr... Start Date: 06/25/21 Status: Ordered Vivelle-Dot 0.1 mg/24 hours twice weekly transdermal film, extended release See Instructions, Place 1 patch on day 1-4 then 2 patches on day 5-10 and then 4 patches on day 11-14 changing patches QOD., # 8 patch, 1 Refills, Maintenance, 06/10/21 14:42:00 EST, [facility] #[id number], Partial fill upon patient request if t... [...]
--- OUTSIDE RECORDS SUMMARY | 2024-04-10 10:54 | XMS_ITS | Continuity of Care Document ---
Author Organization [facility] Address [address] [place] [address]- Care Team Providers Care Wallpaper Embosser Helper Name Role Phone Kaylah SNOW, Mariposa Cassidy Primary Care Physician [phone] Encounter [facility] [place] Date(s): 01/14/22 - 02/13/22 [facility] [address] [place] [address] Allergies, Adverse Reactions, Alerts Substance Reaction Severity [...] 08/26/21 11:37:00 EST, Route to Pharmacy Electronically, [facility] #[id number], Partial fill upon patient request if the prescription is for a schedule II opioi... Start Date: 08/26/21 Status: Ordered bisacodyl 10 mg rectal suppository 1 supp = 10 mg, Rectally, Daily, PRN for constipation, # 10 supp, 0 Refills, Maintenance, 08/10/21 18:57:00 EST, Suppository, [facility]/pharmacy #[id number], Partial fill upon patient request [...] 3 Refills, Maintenance, 06/26/21 16:54:00 EST, Tablet, [facility] #[id number], Partial fill upon patient request if the [...] Refills, Maintenance, 08/10/21 18:58:00 EST, Tablet, [facility]/pharmacy #[id number], Partial fill upon patient request if the prescription is for a schedule II opioid drug., 158, cm,... Start Date: 08/10/21 Status: Ordered Zofran 8 mg oral tablet 1 tablet = 8 mg, By Mouth, 2 times a day, # 20 tablet, 0 Refills, Acute 08/27/22 11:32:00 EST, 08/26/21 11:31:00 EST, Tablet, [facility] #[id number], Partial fill upon patient request if the [...]
--- OUTSIDE RECORDS SUMMARY | 2024-04-10 10:54 | XMS_ITS | Continuity of Care Document ---
Author Organization [facility] Address [address] [place] [address]- Care Team Providers Care Central Office Frame Wirer Name Role Phone Mason Rinaldi MD Primary Care Physician Encounter [facility] [place] Date(s): 02/03/20 - 03/04/20 [facility] [address] [place] [address]- [facility] Allergies, Adverse Reactions, Alerts Substance Reaction Severity [...] 2 pack/packet, 3 Refills, Maintenance, 01/12/20 17:03:00 EDT,[facility] #[id number], 1 tablet By Mouth Piedad... Start Date: [...] 0 Refills, Maintenance, 12/27/19 10:14:00 EDT, Tablet, [facility] #[id number], labs needed prior to next refill, 158, cm, 09/22/19 1... Start Date: 12/27/19 Status: Ordered levothyroxine 175 mcg (0.175 mg) oral tablet 1 tablet = 175 mcg, By Mouth, Daily, # 30 tablet, 3 Refills, Maintenance, 02/01/20 13:20:00 EDT, Tablet, [facility] #[id number], 158, cm, 01/29/20 13:44:00 EDT, Height, 88.2, [...] tablet, 11 Refills, Maintenance, 01/31/20 11:39:00 EDT, [facility] #[id number], 158, cm, 01/29/20 13:44:00 EDT, Height, 88.2, [...] 6 Refills, Maintenance, 02/05/20 15:13:00 EDT, Tablet, [facility] #[id number], 158, cm, 01/29/20 13:44:00 EDT, Height, 88.2, [...]
--- OUTSIDE RECORDS SUMMARY | 2024-04-10 10:54 | XMS_ITS | Continuity of Care Document ---
Author Organization [facility] Address [address], [address]t [address] [place] [address]- Care Team Providers Care Counsellors Name Role Phone Mason Rinaldi MD Primary Care Physician Encounter [facility] [place] Date(s): 12/06/20 - 12/13/20 [facility] [address], 4[address] [place] [address]- Attending Physician: Lee Ann Stephens MD Referring Physician: Deidra Luong MD Allergies, [...] tablet, 11 Refills, Maintenance, 07/05/20 10:24:00 EST, [facility] #[id number], Partial fill upon patient request if the prescription is for a schedule II opioid drug., 1 tablet By Mouth Daily, 158, cm, 05/02/20 14... Start Date: 07/05/20 Status: Ordered metFORMIN 500 mg oral tablet, extended release 3 tablet = 1,500 mg, By Mouth, Daily, with evening meal, # 90 tablet, 11 Refills, Maintenance, 01/31/20 11:39:00 EDT, [facility] #[id number], 158, cm, 01/29/20 13:44:00 EDT, Height, 88.2, [...] tablet, 3 Refills, Maintenance, 11/05/20 12:07:00 EDT, [facility] #[id number], 158, cm, 05/02/20 14:32:00 EDT, Height, 87.5, [...] oldest [Reference Range]: 1 Height 158 cm (12/06/20 8:28 AM) Weight 89.3 kg (12/06/20 8:28 AM) Pulse Rate [55-90 bpm] 72 bpm (12/06/20 8:28 AM) Body Mass Index [18.5-24.99] 35.77 *>HHI* (12/06/20 8:28 AM) Blood Pressure [90-138/55-84 mm Hg] 142/ 76mm Hg *H* (12/06/20 8:28 AM) Blood pressure sites Arm, right (12/06/20 8:28 AM) Weight Obtained Via Standing scale (12/06/20 8:28 AM) Social History Social History Type Response Smoking Status Never smoker; Tobacc o user in household: No entered on: 12/24/15 Sex
--- OUTSIDE RECORDS SUMMARY | 2024-04-10 10:54 | XMS_ITS | Continuity of Care Document ---
Author Organization [facility] Address [address] [place] [address]- Care Team Providers Care Clinic Office Coordinator Name Role Phone Kaylah SNOW, Mariposa M Primary Care Physician En[facility] [facility] [id number] Date(s): 11/09/23 - 11/16/23 [facility] [address] [place] [address]- Attending Physician: Grey Scott MD Referring Physician: Shmuel REYES [OB], Evangelina Miguel Allergies, Adverse Reactions, Alerts Substance Reaction Severity [...] 2 Refills, Maintenance, 09/17/23 15:00:00 EST, Tablet, [facility] #[id number], Partial fill upon patient request if the prescription is for a schedule II opioid drug., 158, cm, 04/10/22 11:14:00 E... Start Date: 3/1/24 Status: Ordered Problem List Condition Confirmation Course [...] oldest [Reference Range]: 1 Height 158 cm (11/09/23 9:56 AM) Weight 88.0 kg (11/09/23 9:56 AM) Body Mass Index [18.5-24.99 kg/m2] 35.25 kg/m2 *>HHI* (11/09/23 9:56 AM) Blood Pressure [90-138/55-84 mm Hg] 118/ 76mm Hg (11/09/23 9:56 AM) Blood pressure sites Arm, left (11/09/23 9:56 AM) Weight Obtained Via Standing scale (11/09/23 9:56 AM) Social History Social History Type Response [...] Reference Physician Member Role: PCP Address: Address: [address] [place] [address]- Care Team Related Persons Name: POLO MANRIQUEZ Address: home [address] [place], [place] Name: MAGUI MANRIQUEZ Address: [address] Address: home [address] [place] [address] [place] Name: ALCIDES WARNER Address: [address] [address]
--- OUTSIDE RECORDS SUMMARY | 2024-04-10 10:54 | XMS_ITS | Continuity of Care Document ---
Author Organization [facility] Address [address] [place] [address], [address] [place] [address]- Care Team Providers Care Government Operations Consultant Name Role Phone Kaylah SNOW, Mariposa Cassidy Primary Care Physician [id number] Date(s): 10/21/21 - 10/28/21 [facility] [address] [place] [address], [address] [place] [address]- Attending Physician: Sofía Beach MD Referring Physician: Mariposa Adrian NP Allergies, [...] 08/26/21 11:37:00 EST, Route to Pharmacy Electronically, [facility] #[id number], Partial fill upon patient request if the prescription is for a schedule II opioi... Start Date: 08/26/21 Status: Ordered bisacodyl 10 mg rectal suppository 1 supp = 10 mg, Rectally, Daily, PRN for constipation, # 10 supp, 0 Refills, Maintenance, 08/10/21 18:57:00 EST, Suppository, [facility]/pharmacy #[id number], Partial fill upon patient request if the prescriptionis for a schedule II opioid drug., 158, cm, ... Start Date: 08/10/21 Status: Ordered clotrimazole 1% topical cream 1 application, Topically, 2 times a day, # 15 Gm, 0 Refills, Maintenance, 10/03/21 9:22:00 EDT, Cream, [facility]/pharmacy #[id number], Partial fill upon patient request [...] 10/21/21 13:22:00 EDT, Route to Pharmacy Electronically, [facility] #[id number], Partial fill upon patient request if the [...] Refills, Maintenance, 08/26/21 11:31:00 EST, CR Tablet, [facility] #[id number], Partial fill upon patient request if the [...] patch, 5 Refills, Maintenance, 06/09/21 18:36:00 EST, [facility] #[id number], Partial fill upon patient request if the prescription is for a schedule II opioid drug., 1 patch Topically, 158, cm, 12/06/20 8... Start Date: 06/09/21 Status: Ordered folic acid 0.4 mg oral tablet 1 tablet = 0.4 mg, By Mouth, Daily, # 100 tablet, 3 Refills, Maintenance, 06/26/21 16:54:00 EST, Tablet, [facility] #[id number], Partial fill upon patient request if the [...] Refills, Maintenance, 08/10/21 18:58:00 EST, Tablet, [facility]/pharmacy #[id number], Partial fill upon patient request [...] patch, 1 Refills, Maintenance, 06/10/21 14:42:00 EST, [facility] #[id number], Partial fill upon patient request if t... Start Date: 06/10/21 Status: Ordered Zofran 4 mg oral tablet 1 tablet = 4 mg, By Mouth, Every 8 hours, PRN as needed for nausea/vomiting, # 20 tablet, 0 Refills, Maintenance, 08/05/21 17:23:00 EST, Tablet, [facility] #[id number], Partial fill upon patientrequest if the prescription is for a schedule II op... Start Date: 08/05/21 Status: Ordered Zofran 8 mg oral tablet 1 tablet = 8 mg, By Mouth, 2 times a day, # 20 tablet, 0 Refills, Acute 08/27/22 11:32:00 EST, 08/26/21 11:31:00 EST, Tablet, [facility] #[id number], Partial fill upon patient request if the [...] oldest [Reference Range]: 1 Height 158 cm (10/21/21 1:08 PM) Weight 86.36 kg (10/21/21 1:08 PM) Body Mass Index [18.5-24.99] 34.59 *>HHI* (10/21/21 1:08 PM) Blood Pressure [90-138/55-84 mm Hg] 100/ 52mm Hg (10/21/21 1:08 PM) Blood pressure sites Arm, right (10/21/21 1:08 PM) Weight Obtained Via Standing scale (10/21/21 1:08 PM) Social History Social History Type Response Smoking Status Never (less than 100 in lifetime) entered on: 08/25/21 Sex
--- OUTSIDE RECORDS SUMMARY | 2024-04-10 10:54 | XMS_ITS | Continuity of Care Document ---
Author Organization [facility] Address [address] [place] [address]- Care Team Providers Care Answering Service Agent Name Role Phone Mariposa Adrian NP Primary Care Physician [phone] [id number] Date(s[facility] 03/21/24 - 03/28/24 [facility] [address] [place] [address]- Attending Physician: Tyler (DIETITIAN TEACHER) Grey REYES Referring Physician: Mariposa Adrian NP Allergies, Adverse [...] 2 Refills, Maintenance, 09/17/23 15:00:00 EST, Tablet, [facility] #[id number], Partial fill upon patient request if the [...] Active PCOS (polycystic ovarian syndrome) Confirmed Active Vital Signs Most recent to oldest [Reference Range]: 1 Height 158 cm (03/21/24 11:40 AM) Weight 88.0 kg (03/21/24 11:40 AM) Body Mass Index [18.5-24.99 kg/m2] 35.25 kg/m2 *>HHI* (03/21/24 11:40 AM) Blood Pressure [90-138/55-84 mm Hg] 118/ 76mm Hg (03/21/24 11:40 AM) Blood pressure sites Arm, right (03/21/24 11:40 AM) Weight Obtained Via Standing scale (03/21/24 11:40 AM) Social History Social History Type Response Smoking Status Never (less than 100 in lifetime) entered on: 08/25/21 Sex Female Patient Care team information Care Team Personnel Name: Vidya Lobo RN Position: [facility] SN RN Member Role: Primary Care Nurse Name: Joy Herron RN Position: [facility] PATRICE Nurse Member Role: Primary Care Nurse Name: Mariposa Adrian NP Position: Reference Physician Member Role: PCP Address: Address: [address] [place] [address]- Care Team Related Persons Name: POLO MANRIQUEZ Address: [address] [place] [address] Name: MAGUI MANRIQUEZ Address: [address] Address: home [address] [place] [address] [place] Name: ALCIDES WARNER Address: [address] [address]
--- OUTSIDE RECORDS SUMMARY | 2024-04-10 10:55 | XMS_ITS | Continuity of Care Document ---
Author Organization [facility] Address [address] [place] [address]- Care Team Providers Care Biostatistician Name Role Phone Kaylah SNOW, Mariposa Cassidy Primary Care Physician [id number] Date[facility]s): 09/02/21 - 09/09/[address] [address] Encounter Diagnosis Other specified related conditions, first trimester(Final) - Discharge Disposition: A-D/C Home Attending Physician: Shmuel REYES [OB], Evangelina Miguel Admitting Physician: Shmuel REYES [OB], Evangelina Miguel Allergies, [...] 08/26/21 11:37:00 EST, Route to Pharmacy Electronically, [facility] #[id number], Partial fill upon patient request if the prescription is for a schedule II opioi... Start Date: 08/26/21 Status: Ordered bisacodyl 10 mg rectal suppository 1 supp = 10 mg, Rectally, Daily, PRN for constipation, # 10 supp, 0 Refills, Maintenance, 08/10/21 18:57:00 EST, Suppository, [facility]/pharmacy #[id number], Partial fill upon patient [...] Refills, Maintenance, 08/26/21 11:31:00 EST, CR Tablet, [facility] #[id number], Partial fill upon patient request if the [...] patch, 5 Refills, Maintenance, 06/09/21 18:36:00 EST, [facility] #[id number], Partial fill upon patient request if the prescription is for a schedule II opioid drug., 1 patch Topically, 158, cm, 12/06/20 8... Start Date: 06/09/21 Status: Ordered folic acid 0.4 mg oral tablet 1 tablet = 0.4 mg, By Mouth, Daily, # 100 tablet, 3 Refills, Maintenance, 06/26/21 16:54:00 EST, Tablet, [facility] #[id number], Partial fill upon patient request if the prescription is for a schedule II opioid drug., 158, cm, 06/24/21 9:16:00 ES... Start Date: 06/26/21 Status: Ordered levothyroxine 150 mcg (0.15 mg) oral tablet 1 tablet = 150 mcg, By Mouth, Daily, # 60 tablet, 1 Refills, Maintenance, 02/17/21 13:28:00 EDT, Tablet, [facility] #[id number], Partial fill upon patient request if the [...] 5Refills, Maintenance, 07/09/21 10:58:00 EST, [facility], Partial fill upon patient request if the prescription is for a schedule II opioid... Start Date: 07/09/21 Status: Ordered Reglan 5 mg oral tablet 1 tablet = 5 mg, By Mouth, Every 6 hours, PRN Nausea & Vomiting, # 90 tablet, 1 Refills, Maintenance, 08/10/21 18:58:00 EST, Tablet, [facility]/pharmacy #[id number], Partial fill upon patient request if the prescription is for a schedule II opioid drug., 158, cm,... Start Date: 08/10/21 Status: Ordered Tylenol 325 mg oral tablet 975 mg, Tablet, By Mouth, STAT, 09/02/21 15:14:00 EST Start Date: 09/02/21 Stop Date: 09/02/21 Status: Completed Vivelle-Dot 0.1 mg/24 hours twice weekly transdermal film, extended release See Instructions, Place 1 patch on day 1-4 then 2 patches on day 5-10 and then 4 patches on day 11-14 changing patches QOD., # 8 patch, 1 Refills, Maintenance, 06/10/21 14:42:00 EST, [facility] #[id number], Partial fill upon patient request if t... Start Date: 06/10/21 Status: Ordered Zofran 4 mg oral tablet 1 tablet = 4 mg, By Mouth, Every 8 hours, PRN as needed for nausea/vomiting, # 20 tablet, 0 Refills, Maintenance, 08/05/21 17:23:00 EST, Tablet, [facility] #[id number], Partial fill upon patientrequest if the prescription is for a schedule II op... Start Date: 08/05/21 Status: Ordered Zofran 8 mg oral tablet 1 tablet = 8 mg, By Mouth, 2 times a day, # 20 tablet, 0 Refills, Acute 08/27/22 11:32:00 EST, 08/26/21 11:31:00 EST, Tablet, [facility] #[id number], Partial fill upon patient request if the [...] ovarian syndrome)(Confirmed) Active Suprapubic abdominal pain(Confirmed) Active Results Orders for Microbiology Reports Name Date Urine Culture 09/02/21 Microbiology Reports TEST:Urine Culture STATUS:Auth (Verified) BODY SITE: SOURCE:URINE COLLECTED DATE/TIME:09/02/21 5:01 PM Urine Culture SPECIMEN DESCRIPTION : URINE CLEAN CATCH/MIDSTREAM SPECIAL REQUESTS : NONE CULTURE : NO GROWTH REPORT STATUS : FINAL 09/03/2021 Vital Signs Most recent to oldest [Reference Range]: 1 2 Height 158 cm (09/02/21 11:45 AM) Weight 87.0 kg (09/02/21 11:25 AM) Pulse Rate [55-90 bpm] 78 bpm (09/02/21 11:45 AM) Blood Pressure [90-138/55-84 mm Hg] 100/ 52mm Hg (09/02/21 11:45 AM) Respiratory Rate [16-30 br/min] 18 br/mi n (09/02/21 4:16 PM) 18 br/min (09/02/21 11:45 AM) Temperature [96.8-100.4 DegF] 98.7 DegF (09/02/21 11:25 AM) Blood pressure sites Arm, left (09/02/21 11:45 AM) Temperature Route Oral (09/02/21 11:25 AM) Dry Weight 87.0 kg (09/02/21 11:25 AM) Weight Obtained Via Standing scale (09/02/21 11:25 AM) Dry Weight Obtained Via Standing scale (09/02/21 11:25 AM) Social History Social History Type Response Smoking Status Never (less than 100 in lifetime) entered on: 08/25/21 Sex
--- OUTSIDE RECORDS SUMMARY | 2024-04-10 10:55 | XMS_ITS | Continuity of Care Document ---
Author Organization [facility] Address [address] [place] [address]- Care Team Providers Care Rate Clerk Passenger Name Role Phone Mariposa Adrian NP Primary Care Physician [phone] [id number] Date(s[facility] 02/22/24 - 02/29/24 [facility] [address] [place] [address]- Attending Physician: Tyler (SENIOR COURT OFFICE ASSISTANT) Grey REYES Referring Physician: Mariposa Adrian NP [...] 02/10/24 12:08:00 EDT, Route to Pharmacy Electronically, [facility] #[id number], Partial fill upon patient request if the prescription is for a sched... Start Date: 02/10/24 Status: Ordered ibuprofen 600 mg oral tablet 600 mg, 1, tablet, By Mouth, Every 6 hours, PRN, # 30 tablet, Refills 0, Tot. Refills 0, Maintenance, Pain , Mild, 02/10/24 12:07:00 EDT, Route to Pharmacy Electronically, [facility] #[id number], Partial fill upon patient request if the prescript... Start Date: 02/10/24 Status: Ordered levothyroxine 150 mcg (0.15 mg) oral tablet 1 tablet = 150 mcg, By Mouth, Daily, # 30 tablet, 2 Refills, Maintenance, 09/17/23 15:00:00 EST, Tablet, [facility] #[id number], Partial fill upon patient request if the prescription is for a schedule II opioid drug., 158, cm, 04/10/22 11:14:00 E... Start Date: 09/17/23 Status: Ordered MiraLax oral powder for reconstitution = 17 Gm, By Mouth, Daily, dissolve in water before taking, # 255 Gm, 0 Refills, Maintenance, 02/10/24 12:07:00 EDT, REC Powder, [facility] #[id number], Partial fill upon patient request if the prescription is for a schedule II opioid drug., 17 Gm... Start Date: 02/10/24 Status: Ordered oxyCODONE 5 mg oral tablet 5 mg, 1, tablet, By Mouth, Every 6 hours, PRN, # 7 tablet, Refills 0, Tot. Refills 0, Maintenance, as needed for pain, 02/10/24 12:06:00 EDT, Route to Pharmacy Electronically, [facility] #[id number], Partial fill upon patient request if the presc... Start Date: 02/10/24 Status: Ordered Senna 8.6 mg oral tablet 8.6 mg, 1, tablet, By Mouth, Daily at bedtime, # 28 tablet, Refills 0, Tot. Refills 0, Maintenance,02/10/24 12:07:00 EDT, Route to Pharmacy Electronically, [facility] #[id number], Partial fill upon patient request if the prescription is for a sc... Start Date: 02/10/24 Status: Ordered simethicone 125 mg oral capsule 1 capsule = 125 mg, By Mouth, 4 times a day, PRN Gas, # 30 capsule, 0 Refills, Maintenance, 02/10/24 12:09:00 EDT, Capsule, [facility] #[id number], Partial fill upon patient request if the [...] oldest [Reference Range]: 1 Height 158 cm (02/22/24 11:46 AM) Weight 88.0 kg (02/22/24 11:46 AM) Body Mass Index [18.5-24.99 kg/m2] 35.25 kg/m2 *>HHI* (02/22/24 11:46 AM) Blood Pressure [90-138/55-84 mm Hg] 100/ 68mm Hg (02/22/24 11:46 AM) Blood pressure sites Arm, left (02/22/24 11:46 AM) Weight Obtained Via Standing scale (02/22/24 11:46 AM) Social History Social History Type Response Smoking Status Never (less than 100 in lifetime) entered on: 08/25/21 Sex Female Note * Chuck Otero: PERFORM Event Display: Patient Education/Instruction Authored Date: Ambulatory Adult Visit Summary [facility] [address] [place] [address] Name: JONATAN HENDERSONZ : 1985?? Visit: 02/22/2024 11:21?? Ambulatory Visit Instructions ?? Your Care Team Primary Care Provider Kaylah SNOW, Mariposa Cassidy? This Visit Provider Tyler REYES, Grey Duarte Vitals Signs Systolic Blood Pressure: 100 mm Hg Height: 158 cm Diastolic Blood Pressure: 68 mm Hg Weight: 88 kg ?? Body Mass Index:??35.25 kg/m2??Critical ?? Body surface area: 1.97 What to do next Scheduled Follow-Up Appointments Wednesday 11:40 AM EDT ?? With: Tyler (SENIOR COURT OFFICE ASSISTANT) Grey REYES Where: [facility] [address] [place] [address]- Status: Pending Future Orders TSH - Once, *Est. 09/17/23, Single or Recurring Future Order?? Free T4 - Once, *Est. 09/17/23, Single or Recurring Future Order?? TSH - Routine, Once, 11/29/23 14:03:00 EDT, Future Order, [facility], Blood?? Free T4 - Routine, Once, 11/29/23 14:03:00 EDT, Future Order, [facility], Blood?? Medications The list below reflects the information in our records and provided by you today along with any changes made during this visit. Please continue your medications until treatment is completed or stopped by your provider. If this is different from the information you have or there are other questions,please contact the prescribing provider. What How Much When Instructions Unchanged Acetaminophen (acetaminophen 325 mg oral tablet) 3 tab(s) Oral Every 6 hours Unchanged Ibuprofen (ibuprofen 600 mg oral tablet) 1 tab(s) Oral Every 6 hours as needed for Pain , Mild Unchanged Levothyroxine (levothyroxine 150 mcg (0.15 mg) oral tablet) 1 tab(s) Oral Daily Unchanged Oxycodone (oxyCODONE 5 mg oral tablet) 1 tab(s) Oral Every 6 hours as needed for as needed for pain Unchanged Polyethylene Glycol 3350 (MiraLax oral powder for reconstitution) 17 gram Oral Daily dissolve in water before taking ?? Unchanged Senna (Senna 8.6 mg oral tablet) 1 tab(s) Oral Daily at Bedtime Unchanged Simethicone (simethicone 125 mg oral capsule) 1 capsule Oral 4 times a day as needed for Gas Medications and Immunizations Administered Medications Given During Visit No medications given during this visit.?? Allergies (NKA means No Known Allergies) Adhesive Bandage aspirin??(red itchy) codeine??(red itchy) morphine??(rash) shellfish??(throat swells) Common Emergency Awareness Tips IS IT A [...] are strongly encouraged to quit. Please call [facility] [facility] at [phone] or [phone] ([phone]) or log in to [email or web address] for referrals to smoking cessation programs. ?? The National Suicide Prevention Hotline is available 08/02 if you or someone you know needs to find a reason to keep living. By calling 3-901-682-[employer] (3133) you'll be connected to a skilled, trained counselor at a crisis center in your area. [facility] [employer] Portal You can view and manage your care through the patient portal or by using a health care brisa of your choosing. [employer] is a website that allows you to securely view your medical information including your hospital discharge summary, office visit summaries, medications and follow-up visits. You can also request appointments, renew medications, and request access to your medical information using a health care brisa of your choosing, or just ask a question. You can enroll at [email or web address] or register during your next office visit. [facility], in keeping with [facility] guidance, no longer requires face masks for [...] medical provider or home test kit. ?? Disclaimer: The information provided is of a [...] different or additional instructions may be required. ?? If you have questions, please consult with your primary care provider or pharmacist, as appropriate. This information is not intended to serve as substitution for assessment and evaluation by a qualified health care provider. If you do not have a primary care provider, you may find a [facility] provider by calling [facility] [employer] [facility] at [phone]. Patient Care team information Care Team Personnel Name: Vidya Lobo RN Position: Sarita THOMAS RN Member Role: Primary Care Nurse Name: Joy Herron RN Position: Sarita IBRAHIM Nurse Member Role: Primary Care Nurse Name: Mariposa Adrian NP Position: Reference Physician Member Role: PCP Address: Address: [address] [place] [address]- Care Team Related Persons Name: POLO MANRIQUEZ Address: home [address] [place], [place] Name: MAGUI MANRIQUEZ Address: [address] Address: home [address] [place], [place] Name: ALCIDES WARNER Address: [address] [address]
--- OUTSIDE RECORDS SUMMARY | 2024-04-10 10:55 | XMS_ITS | Continuity of Care Document ---
Author Organization [facility] [employer] Address [address] [place] [address], [address] [place] [address]- Care Team Providers Care Eyewear Manufacturing Supervisor Name Role Phone Kaylah SNOW, Mariposa Cassidy Primary Care Physician [phone] [id number] Date(s): [facility]21 - 10/31/[facility] [address], [address] [place] [address]- Allergies, Adverse Reactions, Alerts Substance Reaction Severity [...] 08/26/21 11:37:00 EST, Route to Pharmacy Electronically, [facility] #[id number], Partial fill upon patient request if the prescription is for a schedule II opioi... Start Date: 08/26/21 Status: Ordered bisacodyl 10 mg rectal suppository 1 supp = 10 mg, Rectally, Daily, PRN for constipation, # 10 supp, 0 Refills, Maintenance, 08/10/21 18:57:00 EST, Suppository, [facility]/pharmacy #[id number], Partial fill upon patient request if the prescriptionis for a schedule II opioid drug., 158, cm, ... Start Date: 08/10/21 Status: Ordered clotrimazole 1% topical cream 1 application, Topically, 2 times a day, # 15 Gm, 0 Refills, Maintenance, 10/03/21 9:22:00 EDT, Cream, [facility]/pharmacy #[id number], Partial fill upon [...] 10/21/21 13:22:00 EDT, Route to Pharmacy Electronically, [facility] #[id number], Partial fill upon patient request if the [...] Refills, Maintenance, 08/26/21 11:31:00 EST, CR Tablet, [facility] #[id number], Partial fill upon patient request if the [...] patch, 5 Refills, Maintenance, 06/09/21 18:36:00 EST, [facility] #[id number], Partial fill upon patient request if the prescription is for a schedule II opioid drug., 1 patch Topically, 158, cm, 12/06/20 8... Start Date: 06/09/21 Status: Ordered folic acid 0.4 mg oral tablet 1 tablet = 0.4 mg, By Mouth, Daily, # 100 tablet, 3 Refills, Maintenance, 06/26/21 16:54:00 EST, Tablet, [facility] #[id number], Partial fill upon patient request if the [...] 5Refills, Maintenance, 07/09/21 10:58:00 EST, [facility], Partial fill upon patient request if the prescription is for a schedule II opioid... Start Date: 07/09/21 Status: Ordered Reglan 5 mg oral tablet 1 tablet = 5 mg, By Mouth, Every 6 hours, PRN Nausea & Vomiting, # 90 tablet, 1 Refills, Maintenance, 08/10/21 18:58:00 EST, Tablet, [facility]/pharmacy #[id number], Partial fill upon patient request if the [...] patch, 1 Refills, Maintenance, 06/10/21 14:42:00 EST, [facility] #[id number], Partial fill upon patient request if t... Start Date: 06/10/21 Status: Ordered Zofran 4 mg oral tablet 1 tablet = 4 mg, By Mouth, Every 8 hours, PRN as needed for nausea/vomiting, # 20 tablet, 0 Refills, Maintenance, 08/05/21 17:23:00 EST, Tablet, [facility] #[id number], Partial fill upon patientrequest if the prescription is for a schedule II op... Start Date: 08/05/21 Status: Ordered Zofran 8 mg oral tablet 1 tablet = 8 mg, By Mouth, 2 times a day, # 20 tablet, 0 Refills, Acute 08/27/22 11:32:00 EST, 08/26/21 11:31:00 EST, Tablet, [facility] #[id number], Partial fill upon patient request if the [...]
--- OUTSIDE RECORDS SUMMARY | 2024-04-10 10:55 | XMS_ITS | Continuity of Care Document ---
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 Start Date: 03/05/22 Status: Ordered aspirin 81 mg oral tablet, chewable 162 mg, 2, tablet, Chew, Daily, # 60 tablet, Refills 8, Tot. Refills 8, Maintenance, 08/26/21 11:37:00 EST, Route to Pharmacy Electronically, [facility] #[id number], Partial fill upon patient request if the prescription is for a schedule II opioi... Start Date: 08/26/21 Status: Ordered Colace sodium 100 mg oral capsule 100 mg, 1, capsule, By Mouth, 2 times a day, PRN, # 20 capsule, Refills 0, Tot. Refills 0, Maintenance, for constipation, 03/05/22 22:26:00 EDT, Route to Pharmacy Electronically, [facility]#[id number], Partial fill upon patient request if the pr... Start Date: 03/05/22 Status: Ordered ibuprofen 600 mg oral tablet 600 mg, 1, tablet, By Mouth, Every 6 hours, # 50 tablet, Refills 0, Tot. Refills 0, Maintenance, 03/05/22 22:26:00 EDT, Route to Pharmacy Electronically, [facility] #[id number], Partial fill upon patient request if the [...] 0 Refills, Soft Stop, 04/09/22 10:41:00 EDT, [facility], Partial fill upon patient request if the prescription is for a schedule II opioid drug., 158, cm, 03/19/22 15:29:00 EDT, Height, 90... Start Date: 04/09/22 Status: Ordered oxyCODONE 5 mg oral tablet 10 mg, 2, tablet, By Mouth, Every 6 hours, PRN, # 12 tablet, Refills 0, Tot. Refills 0, Maintenance, for pain, 03/05/22 22:26:00 EDT, Route to Pharmacy Electronically, [facility] #[id number], Partial fill upon patient request if the [...] 0 Refills, Maintenance, 03/05/22 22:26:00 EDT,Chew Tablet, [facility] #[id number], Partial fill upon patient request if the prescription is for a schedule II opioid drug., 158, cm, 03/05/22 20... Start Date: 03/05/22 Status: Ordered Zoloft 25 mg oral tablet 1 tablet = 25 mg, By Mouth, Daily, 1 tablet orally daily x1 week, then increase to 2 tablets a day,# 30 tablet, 0 Refills, Maintenance, 04/10/22 11:20:00 EDT, Tablet, [facility] #[id number], Partial fill upon patient request if the [...] Personnel Name: Mariposa Adrian NP Address: Address: [address] [place] [id number]
--- OUTSIDE RECORDS SUMMARY | 2024-04-10 10:55 | XMS_ITS | Continuity of Care Document ---
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 Start Date: 03/05/22 Status: Ordered aspirin 81 mg oral tablet, chewable 162 mg, 2, tablet, Chew, Daily, # 60 tablet, Refills 8, Tot. Refills 8, Maintenance, 08/26/21 11:37:00 EST, Route to Pharmacy Electronically, [facility] #[id number], Partial fill upon patient request if the prescription is for a schedule II opioi... Start Date: 08/26/21 Status: Ordered Colace sodium 100 mg oral capsule 100 mg, 1, capsule, By Mouth, 2 times a day, PRN, # 20 capsule, Refills 0, Tot. Refills 0, Maintenance, for constipation, 03/05/22 22:26:00 EDT, Route to Pharmacy Electronically, [facility]#[id number], Partial fill upon patient request if the pr... Start Date: 03/05/22 Status: Ordered ibuprofen 600 mg oral tablet 600 mg, 1, tablet, By Mouth, Every 6 hours, # 50 tablet, Refills 0, Tot. Refills 0, Maintenance, 03/05/22 22:26:00 EDT, Route to Pharmacy Electronically, [facility] #[id number], Partial fill upon patient request if the [...] 0 Refills, Soft Stop, 04/09/22 10:41:00 EDT, [facility], Partial fill upon patient request if the prescription is for a schedule II opioid drug., 158, cm, 03/19/22 15:29:00 EDT, Height, 90... Start Date: 04/09/22 Status: Ordered oxyCODONE 5 mg oral tablet 10 mg, 2, tablet, By Mouth, Every 6 hours, PRN, # 12 tablet, Refills 0, Tot. Refills 0, Maintenance, for pain, 03/05/22 22:26:00 EDT, Route to Pharmacy Electronically, [facility] #[id number], Partial fill upon patient request if the [...] 0 Refills, Maintenance, 03/05/22 22:26:00 EDT,Chew Tablet, [facility] #[id number], Partial fill upon patient request if the prescription is for a schedule II opioid drug., 158, cm, 03/05/22 20... Start Date: 03/05/22 Status: Ordered Zoloft 25 mg oral tablet 1 tablet = 25 mg, By Mouth, Daily, 1 tablet orally daily x1 week, then increase to 2 tablets a day,# 30 tablet, 0 Refills, Maintenance, 04/10/22 11:20:00 EDT, Tablet, [facility] #[id number], Partial fill upon patient request if the [...] Personnel Name: Mariposa Adrian NP Address: Address: [address] [place] [id number]
--- OUTSIDE RECORDS SUMMARY | 2024-04-10 10:55 | XMS_ITS | Continuity of Care Document ---
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 Start Date: 08/26/21 Status: Ordered bisacodyl 10 mg rectal suppository 1 supp = 10 mg, Rectally, Daily, PRN for constipation, # 10 supp, 0 Refills, Maintenance, 08/10/21 18:57:00 EST, Suppository, [facility]/pharmacy #[id number], Partial fill upon patient request if the prescriptionis for a schedule II opioid drug., 158, cm, ... Start Date: 08/10/21 Status: Ordered clotrimazole 1% topical cream 1 application, Topically, 2 times a day, # 15 Gm, 0 Refills, Maintenance, 10/03/21 9:22:00 EDT, Cream, [facility]/pharmacy #[id number], Partial fill upon [...] 10/21/21 13:22:00 EDT, Route to Pharmacy Electronically, [facility] #[id number], Partial fill upon patient request if the [...] Refills, Maintenance, 08/26/21 11:31:00 EST, CR Tablet, [facility] #[id number], Partial fill upon patient request if the [...] patch, 5 Refills, Maintenance, 06/09/21 18:36:00 EST, [facility] #[id number], Partial fill upon patient request if the prescription is for a schedule II opioid drug., 1 patch Topically, 158, cm, 12/06/20 8... Start Date: 06/09/21 Status: Ordered folic acid 0.4 mg oral tablet 1 tablet = 0.4 mg, By Mouth, Daily, # 100 tablet, 3 Refills, Maintenance, 06/26/21 16:54:00 EST, Tablet, [facility] #[id number], Partial fill upon patient request if the [...] Refills, Maintenance, 08/10/21 18:58:00 EST, Tablet, [facility]/pharmacy #[id number], Partial fill upon [...] patch, 1 Refills, Maintenance, 06/10/21 14:42:00 EST, [facility] #[id number], Partial fill upon patient request if t... Start Date: 06/10/21 Status: Ordered Zofran 4 mg oral tablet 1 tablet = 4 mg, By Mouth, Every 8 hours, PRN as needed for nausea/vomiting, # 20 tablet, 0 Refills, Maintenance, 08/05/21 17:23:00 EST, Tablet, [facility] #[id number], Partial fill upon patientrequest if the prescription is for a schedule II op... Start Date: 08/05/21 Status: Ordered Zofran 8 mg oral tablet 1 tablet = 8 mg, By Mouth, 2 times a day, # 20 tablet, 0 Refills, Acute 08/27/22 11:32:00 EST, 08/26/21 11:31:00 EST, Tablet, [facility] #[id number], Partial fill upon patient request if the [...]
--- OUTSIDE RECORDS SUMMARY | 2024-04-10 10:55 | XMS_ITS | Continuity of Care Document ---
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 System Support Administrator Name Role Phone Mason Rinaldi MD Primary Care Physician [facility] Date(s): 08/30/20 - 09/29/20 [facility] [address] [place] [address]- Attending Physician: Farzad Resendez Admitting Physician: Farzad Resendez Referring Physician: trFarzad Allergies, Adverse Reactions, Alerts Substance Reaction Severity [...] each, 0 Refills, Maintenance, 05/09/20 7:54:00 EDT, [facility], 158, cm, 05/02/20 14:32:00 EDT, Height, 88.2, kg, 01/09/19 16:14:00 EDT, Dry Weight Start Date: 05/09/20 Status: Ordered Folbic oral tablet 1 tablet, By Mouth, Daily, # 30 tablet, 11 Refills, Maintenance, 07/05/20 10:24:00 EST, [facility] #[id number], Partial fill upon patient request if the prescription is for a schedule II opioid drug., 1 tablet By Mouth Daily, 158, cm, 05/02/20 14... Start Date: 07/05/20 Status: Ordered metFORMIN 500 mg oral tablet, extended release 3 tablet = 1,500 mg, By Mouth, Daily, with evening meal, # 90 tablet, 11 Refills, Maintenance, 01/31/20 11:39:00 EDT, [facility] #[id number], 158, cm, 01/29/20 13:44:00 EDT, Height, 88.2, [...] 05/31/20 15:20:00 EST, Route to Pharmacy Electronically, [facility] #[id number], Partial fill upon patient request, 158, cm, [...] 6 Refills, Maintenance, 02/05/20 15:13:00 EDT, Tablet, [facility] #[id number], 158, cm, 01/29/20 13:44:00 EDT, Height, 88.2, kg, 01/09/19 16:14:00 EDT, Dry Weight Start Date: 02/05/20 Status: Ordered Zofran 8 mg oral tablet 1 tablet = 8 mg, By Mouth, Every 8 hours, PRN Nausea & Vomiting, # 10 tablet, 0 Refills, Maintenance, 05/31/20 11:44:00 EST, Tablet, [facility] #[id number], Partial fill upon patient request, 158, cm, 05/02/20 14:32:00 EDT, Height, 87.5, kg, ... Start Date: 05/31/20 Status: Ordered Problem List [...]
--- OUTSIDE RECORDS SUMMARY | 2024-04-10 10:55 | XMS_ITS | Continuity of Care Document ---
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 Phone Kaylah SNOW, Mariposa Cassidy Primary Care Physician Encounter [facility] [place] Date(s): 08/12/21 - 08/19/21 [facility] Attending Physician: Lee Ann Stephens MD Allergies, Adverse [...] Dry Weight Start Date: 06/09/21 Status: Ordered bisacodyl 10 mg rectal suppository 1 supp = 10 mg, Rectally, Daily, PRN for constipation, # 10 supp, 0 Refills, Maintenance, 08/10/21 18:57:00 EST, Suppository, [facility]/pharmacy #[id number], Partial fill upon patient request if the prescriptionis for a schedule II opioid drug., 158, cm, 2... Start Date: 08/10/21 Status: Ordered Endometrin 100 mg vaginal insert [...] patch, 5 Refills, Maintenance, 06/09/21 18:36:00 EST, [facility] #[id number], Partial fill upon patient request if the prescription is for a schedule II opioid drug., 1 patch Topically, 158, cm, 12/06/20 8... Start Date: 06/09/21 Status: Ordered folic acid 0.4 mg oral tablet 1 tablet = 0.4 mg, By Mouth, Daily, # 100 tablet, 3 Refills, Maintenance, 06/26/21 16:54:00 EST, Tablet, [facility] #[id number], Partial fill upon patient request if the prescription is for a schedule II opioid drug., 158, cm, 06/24/21 9:16:00 ES... Start Date: 06/26/21 Status: Ordered levothyroxine 150 mcg (0.15 mg) oral tablet 1 tablet = 150 mcg, By Mouth, Daily, # 60 tablet, 1 Refills, Maintenance, 02/17/21 13:28:00 EDT, Tablet, [facility] #[id number], Partial fill upon patient request if the prescription is for a schedule II opioid drug., 158, cm, 12/06/20 8:28:00 ED... Start Date: 02/17/21 Status: Ordered metFORMIN 500 mg oral tablet, extended release 3 tablet = 1,500 mg, By Mouth, Daily, with evening meal, # 90 tablet, 11 Refills, Maintenance, 01/31/20 11:39:00 EDT, [facility] #[id number], 158, cm, 01/29/20 13:44:00 EDT, Height, 88.2, [...] 07/17/21 16:04:00 EST, Route to Pharmacy Electronically, [facility] #[id number], Partial fill upon patient request, 158, cm, [...] 05/26/21 11:44:00 EST, Route to Pharmacy Electronically, [facility] #[id number], Partial fill upon patientrequest if the prescription is for a schedule II op... Start Date: 05/26/21 Stop Date: 06/05/21 Status: Ordered Provera 10 mg oral tablet 10 mg, 1, tablet, By Mouth, Daily, # 7 tablet, Refills 0, Tot. Refills 0, Maintenance, 02/17/21 13:23:00 EDT, Route to Pharmacy Electronically, [facility] #[id number], Partial fill upon patient request if the prescription is for a schedule II opi... Start Date: 02/17/21 Stop Date: 02/24/21 Status: Ordered Reglan 5 mg oral tablet 1 tablet = 5 mg, By Mouth, Every 6 hours, PRN Nausea & Vomiting, # 90 tablet, 1 Refills, Maintenance, 08/10/21 18:58:00 EST, Tablet, [facility]/pharmacy #[id number], Partial fill upon patient request if the prescription is for a schedule II opioid drug., 158, cm,... Start Date: 08/10/21 Status: Ordered simethicone 80 mg oral tablet, chewable 80 mg, 1, tablet, Chew, 4 times a day, PRN, # 90 tablet, Refills 1, Tot. Refills 1, Maintenance, asneeded for gas, 08/10/21 18:57:00 EST, Route to Pharmacy Electronically, [facility]/pharmacy #[id number], Partial fill upon patient request if the prescription is f... Start Date: 08/10/21 Status: Ordered Valium 5 mg oral tablet 5 mg, 1, tablet, By Mouth, driller portable to Procedure, May need to repeat!, # 2 tablet, Refills 0, Tot. Refills 0, Maintenance, 06/25/21 10:29:00 EST, Route to Pharmacy Electronically, [facility][id number], Partial fill upon patient request if the pr... Start Date: 06/25/21 Status: Ordered Vivelle-Dot 0.1 mg/24 hours twice weekly transdermal film, extended release See Instructions, Place 1 patch on day 1-4 then 2 patches on day 5-10 and then 4 patches on day 11-14 changing patches QOD., # 8 patch, 1 Refills, Maintenance, 06/10/21 14:42:00 EST, [facility] #[id number], Partial fill upon patient request if t... Start Date: 06/10/21 Status: Ordered Zofran 4 mg oral tablet 1 tablet = 4 mg, By Mouth, Every 8 hours, PRN as needed for nausea/vomiting, # 20 tablet, 0 Refills, Maintenance, 08/05/21 17:23:00 EST, Tablet, [facility] #[id number], Partial fill upon patientrequest if the prescription [...]
--- OUTSIDE RECORDS SUMMARY | 2024-04-10 10:55 | XMS_ITS | Continuity of Care Document ---
Author Organization [facility] e Medicine Address [address], [address]t [address] [place] [address]- Care Team Providers Care Third Hand Name Role Phone Mason Rinaldi MD Primary Care Physician Encounter [facility] [place] Date(s): 05/27/20 - 06/26/20 [facility] Rep[facility]ductive [facility] [address], 4[address] [place] [address]- Allergies, Adverse Reactions, Alerts Substance Reaction Severity [...] each, 0 Refills, Maintenance, 05/09/20 7:54:00 EDT, [facility], 158, cm, 05/02/20 14:32:00 EDT, Height, 88.2, kg, 01/09/19 16:14:00 EDT, Dry Weight Start Date: 05/09/20 Status: Ordered metFORMIN 500 mg oral tablet, extended release 3 tablet = 1,500 mg, By Mouth, Daily, with evening meal, # 90 tablet, 11 Refills, Maintenance, 01/31/20 11:39:00 EDT, [facility] #[id number], 158, cm, 01/29/20 13:44:00 EDT, Height, 88.2, [...] 05/31/20 15:20:00 EST, Route to Pharmacy Electronically, [facility] #[id number], Partial fill upon patient request, 158, cm, [...] 6 Refills, Maintenance, 02/05/20 15:13:00 EDT, Tablet, [facility] #[id number], 158, cm, 01/29/20 13:44:00 EDT, Height, 88.2, kg, 01/09/19 16:14:00 EDT, Dry Weight Start Date: 02/05/20 Status: Ordered Zofran 8 mg oral tablet 1 tablet = 8 mg, By Mouth, Every 8 hours, PRN Nausea & Vomiting, # 10 tablet, 0 Refills, Maintenance, 05/31/20 11:44:00 EST, Tablet, [facility] #[id number], Partial fill upon patient request, 158, cm, [...]
--- OUTSIDE RECORDS SUMMARY | 2024-04-10 10:55 | XMS_ITS | Continuity of Care Document ---
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 Start Date: 08/26/21 Status: Ordered bisacodyl 10 mg rectal suppository 1 supp = 10 mg, Rectally, Daily, PRN for constipation, # 10 supp, 0 Refills, Maintenance, 08/10/21 18:57:00 EST, Suppository, [facility]/pharmacy #[id number], Partial fill upon patient request if the prescriptionis for a schedule II opioid drug., 158, cm, ... Start Date: 08/10/21 Status: Ordered clotrimazole 1% topical cream 1 application, Topically, 2 times a day, # 15 Gm, 0 Refills, Maintenance, 10/03/21 9:22:00 EDT, Cream, [facility]/pharmacy #[id number], Partial fill upon patient [...] 10/21/21 13:22:00 EDT, Route to Pharmacy Electronically, [facility] #[id number], Partial fill upon patient request if the [...] Refills, Maintenance, 08/26/21 11:31:00 EST, CR Tablet, [facility] #[id number], Partial fill upon patient request if the [...] patch, 5 Refills, Maintenance, 06/09/21 18:36:00 EST, [facility] #[id number], Partial fill upon patient request if the prescription is for a schedule II opioid drug., 1 patch Topically, 158, cm, 12/06/20 8... Start Date: 06/09/21 Status: Ordered folic acid 0.4 mg oral tablet 1 tablet = 0.4 mg, By Mouth, Daily, # 100 tablet, 3 Refills, Maintenance, 06/26/21 16:54:00 EST, Tablet, [facility] #[id number], Partial fill upon patient request if the [...] 1 Refills, Maintenance, 08/10/21 18:58:00 EST, Tablet, [facility]/pharmacy #[id number], Partial fill upon patient [...] patch, 1 Refills, Maintenance, 06/10/21 14:42:00 EST, [facility] #[id number], Partial fill upon patient request if t... Start Date: 06/10/21 Status: Ordered Zofran 4 mg oral tablet 1 tablet = 4 mg, By Mouth, Every 8 hours, PRN as needed for nausea/vomiting, # 20 tablet, 0 Refills, Maintenance, 08/05/21 17:23:00 EST, Tablet, [facility] #[id number], Partial fill upon patientrequest if the prescription is for a schedule II op... Start Date: 08/05/21 Status: Ordered Zofran 8 mg oral tablet 1 tablet = 8 mg, By Mouth, 2 times a day, # 20 tablet, 0 Refills, Acute 08/27/22 11:32:00 EST, 08/26/21 11:31:00 EST, Tablet, [facility] #[id number], Partial fill upon patient request if the [...]
--- OUTSIDE RECORDS SUMMARY | 2024-04-10 10:55 | XMS_ITS | Continuity of Care Document ---
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 Start Date: 08/26/21 Status: Ordered bisacodyl 10 mg rectal suppository 1 supp = 10 mg, Rectally, Daily, PRN for constipation, # 10 supp, 0 Refills, Maintenance, 08/10/21 18:57:00 EST, Suppository, [facility]/pharmacy #[id number], Partial fill upon patient [...] 3 Refills, Maintenance, 06/26/21 16:54:00 EST, Tablet, [facility] #[id number], Partial fill upon patient request if the [...] Refills, Maintenance, 08/10/21 18:58:00 EST, Tablet, [facility]/pharmacy #[id number], Partial fill upon patient request if the prescription is for a schedule II opioid drug., 158, cm,... Start Date: 08/10/21 Status: Ordered Zofran 8 mg oral tablet 1 tablet = 8 mg, By Mouth, 2 times a day, # 20 tablet, 0 Refills, Acute 08/27/22 11:32:00 EST, 08/26/21 11:31:00 EST, Tablet, [facility] #[id number], Partial fill upon patient request if the [...]
--- OUTSIDE RECORDS SUMMARY | 2024-04-10 10:55 | XMS_ITS | Continuity of Care Document ---
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 Start Date: 08/26/21 Status: Ordered bisacodyl 10 mg rectal suppository 1 supp = 10 mg, Rectally, Daily, PRN for constipation, # 10 supp, 0 Refills, Maintenance, 08/10/21 18:57:00 EST, Suppository, [facility]/pharmacy #[id number], Partial fill upon patient request if the prescriptionis for a schedule II opioid drug., 158, cm, ... Start Date: 08/10/21 Status: Ordered clotrimazole 1% topical cream 1 application, Topically, 2 times a day, # 15 Gm, 0 Refills, Maintenance, 10/03/21 9:22:00 EDT, Cream, [facility]/pharmacy #[id number], Partial fill upon [...] Refills, Maintenance, 08/26/21 11:31:00 EST, CR Tablet, [facility] #[id number], Partial fill upon patient request if the [...] patch, 5 Refills, Maintenance, 06/09/21 18:36:00 EST, [facility] #[id number], Partial fill upon patient request if the prescription is for a schedule II opioid drug., 1 patch Topically, 158, cm, 12/06/20 8... Start Date: 06/09/21 Status: Ordered folic acid 0.4 mg oral tablet 1 tablet = 0.4 mg, By Mouth, Daily, # 100 tablet, 3 Refills, Maintenance, 06/26/21 16:54:00 EST, Tablet, [facility] #[id number], Partial fill upon patient request if the prescription is for a schedule II opioid drug., 158, cm, 06/24/21 9:16:00 ES... Start Date: 06/26/21 Status: Ordered levothyroxine 150 mcg (0.15 mg) oral tablet 1 tablet = 150 mcg, By Mouth, Daily, # 60 tablet, 1 Refills, Maintenance, 02/17/21 13:28:00 EDT, Tablet, [facility] #[id number], Partial fill upon patient request if the [...] 07/09/21 10:58:00 EST, [facility], Partial fill upon patient request if the prescription is for a schedule II opioid... Start Date: 07/09/21 Status: Ordered Reglan 5 mg oral tablet 1 tablet = 5 mg, By Mouth, Every 6 hours, PRN Nausea & Vomiting, # 90 tablet, 1 Refills, Maintenance, 08/10/21 18:58:00 EST, Tablet, [facility]/pharmacy #[id number], Partial fill upon patient request if the [...] patch, 1 Refills, Maintenance, 06/10/21 14:42:00 EST, [facility] #[id number], Partial fill upon patient request if t... Start Date: 06/10/21 Status: Ordered Zofran 4 mg oral tablet 1 tablet = 4 mg, By Mouth, Every 8 hours, PRN as needed for nausea/vomiting, # 20 tablet, 0 Refills, Maintenance, 08/05/21 17:23:00 EST, Tablet, [facility] #[id number], Partial fill upon patientrequest if the prescription is for a schedule II op... Start Date: 08/05/21 Status: Ordered Zofran 8 mg oral tablet 1 tablet = 8 mg, By Mouth, 2 times a day, # 20 tablet, 0 Refills, Acute 08/27/22 11:32:00 EST, 08/26/21 11:31:00 EST, Tablet, [facility] #[id number], Partial fill upon patient request if the [...]
--- OUTSIDE RECORDS SUMMARY | 2024-04-10 10:55 | XMS_ITS | Continuity of Care Document ---
Author Organization [facility] e Medicine Address [address], 4t [address] [place] [address]- Care Team Providers Care Accountant Assistant Name Role Phone Mason Rinaldi MD Primary Care Physician [phone] [place] [facility] [place](s): 08/22/20 - 09/21/20 [facility] Reproductive Medicine [address], 4th [address] [place], [place] [address] Allergies, Adverse Reactions, Alerts Substance Reaction [...] each, 0 Refills, Maintenance, 05/09/20 7:54:00 EDT, [facility], 158, cm, 05/02/20 14:32:00 EDT, Height, 88.2, kg, 01/09/19 16:14:00 EDT, Dry Weight Start Date: 05/09/20 Status: Ordered Folbic oral tablet 1 tablet, By Mouth, Daily, # 30 tablet, 11 Refills, Maintenance, 07/05/20 10:24:00 EST, [facility] #[id number], Partial fill upon patient request if the prescription is for a schedule II opioid drug., 1 tablet By Mouth Daily, 158, cm, 05/02/20 14... Start Date: 07/05/20 Status: Ordered metFORMIN 500 mg oral tablet, extended release 3 tablet = 1,500 mg, By Mouth, Daily, with evening meal, # 90 tablet, 11 Refills, Maintenance, 01/31/20 11:39:00 EDT, [facility] #[id number], 158, cm, 01/29/20 13:44:00 EDT, Height, 88.2, [...] 05/31/20 15:20:00 EST, Route to Pharmacy Electronically, [facility] #[id number], Partial fill upon patient request, 158, cm, [...] 6 Refills, Maintenance, 02/05/20 15:13:00 EDT, Tablet, [facility] #[id number], 158, cm, 01/29/20 13:44:00 EDT, Height, 88.2, kg, 01/09/19 16:14:00 EDT, Dry Weight Start Date: 02/05/20 Status: Ordered Zofran 8 mg oral tablet 1 tablet = 8 mg, By Mouth, Every 8 hours, PRN Nausea & Vomiting, # 10 tablet, 0 Refills, Maintenance, 05/31/20 11:44:00 EST, Tablet, [facility] #[id number], Partial fill upon patient request, 158, cm, [...]
--- OUTSIDE RECORDS SUMMARY | 2024-04-10 10:55 | XMS_ITS | Continuity of Care Document ---
Author Organization [facility]on [employer] [facility] Address [address] [place] [address], [address] [place] [address]- Care Team Providers Care Uplands Division Director Name Role Phone Kaylah SNOW, Mariposa M Primary Care Physician [id number] - 10[facility]06/23 [facility] [employer] [facility] [address], [address] [place] [address]- Attending Physician: Abdiel Edwards MD Admitting Physician: Shmuel REYES [OB], Evangelina Miguel Referring Physician: Anival Porter MD Allergies, Adverse Reactions, Alerts Substance Reaction [...] 2 Refills, Maintenance, 09/17/23 15:00:00 EST, Tablet, [facility] #[id number], Partial fill upon patient request if the [...] recent to oldest [Reference Range]: 1 Weight 89.45 kg (09/29/23 11:10 AM) Blood Pressure [90-138/55-84 mm Hg] 128/ 80mm Hg (09/29/23 11:10 AM) Blood pressure sites Arm, right (09/29/23 11:10 AM) Weight Obtained Via Standing scale (09/29/23 11:10 AM) Social History Social History Type Response [...] Physician Member Role: PCP Address: Address: [address] [place] [address]- Care Team Related Persons Name: POLO MANRIQUEZ Address: home [address] [place] [address] Name: MAGUI MANRIQUEZ Address: [address] Address: home [address] [place] [address] Name: ALCIDES WARNER Address: home [address] [address]
--- OUTSIDE RECORDS SUMMARY | 2024-04-10 10:55 | XMS_ITS | Continuity of Care Document ---
Author Organization [facility] [employer] [facility] Address [address] [place] [address], [address] [place] [address]- Care Team Providers Care Eyeletter Name Role Phone Kaylah SNOW, Mariposa Cassidy Primary Care Physician [id number] Date[facility] 02/19/22 - 02/26/[facility] [address] [place] [address], [address] [place] [address]- Attending Physician: Mary Herrera MD Referring Physician: [...] 08/26/21 11:37:00 EST, Route to Pharmacy Electronically, [facility] #[id number], Partial fill upon patient request if the [...] 3 Refills, Maintenance, 06/26/21 16:54:00 EST, Tablet, [facility] #[id number], Partial fill upon patient request if the [...] 60each, 3 Refills, Maintenance, 02/18/22 11:08:00 EDT, [facility] #[id number], Partial fill uponpatient request if the prescription [...] 08/10/21 18:58:00 EST, Tablet, [facility]/pharmacy #[id number], Partial fill upon patient request if the prescription is for a schedule II opioid drug., 158, cm,... Start Date: 08/10/21 Status: Ordered Zofran 8 mg oral tablet 1 tablet = 8 mg, By Mouth, 2 times a day, # 20 tablet, 0 Refills, Acute 08/27/22 11:32:00 EST, 08/26/21 11:31:00 EST, Tablet, [facility] #[id number], Partial fill upon patient request if the [...] oldest [Reference Range]: 1 Height 158 cm (02/19/22 11:56 AM) Weight 91.33 kg (02/19/22 11:56 AM) Body Mass Index [18.5-24.99] 36.58 *>HHI* (02/19/22 11:56 AM) Blood Pressure [90-138/55-84 mm Hg] 125/ 68mm Hg (02/19/22 11:56 AM) Blood pressure sites Arm, right (02/19/22 11:56 AM) Weight Obtained Via Standing scale (02/19/22 11:56 AM) Social History Social History Type Response Smoking Status Never (less than 100 in lifetime) entered on: 08/25/21 Sex
--- OUTSIDE RECORDS SUMMARY | 2024-04-10 10:55 | XMS_ITS | Continuity of Care Document ---
Author Organization [facility] Address [address] [place] [address]- Care Team Providers Care Electric Range Servicer Name Role Phone Kaylah SNOW, Mariposa Cassidy Primary Care Physician [place] [facility] [place] Date(s): 02/12/22 - 03/14/22 [facility] [address] [place] [address] Allergies, Adverse Reactions, Alerts Substance Reaction [...] 0 Refills, Maintenance, 03/05/22 22:26:00 EDT, Capsule, [facility] #[id number], Partial fill upon patient request if the prescription is for a schedule II opioid dr... Start Date: 03/05/22 Status: Ordered aspirin 81 mg oral tablet, chewable 162 mg, 2, tablet, Chew, Daily, # 60 tablet, Refills 8, Tot. Refills 8, Maintenance, 08/26/21 11:37:00 EST, Route to Pharmacy Electronically, [facility] #[id number], Partial fill upon patient request if the prescription is for a schedule II opioi... Start Date: 08/26/21 Status: Ordered Colace sodium 100 mg oral capsule 100 mg, 1, capsule, By Mouth, 2 times a day, PRN, # 20 capsule, Refills 0, Tot. Refills 0, Maintenance, for constipation, 03/05/22 22:26:00 EDT, Route to Pharmacy Electronically, [facility][id number], Partial fill upon patient request if the pr... Start Date: 03/05/22 Status: Ordered ibuprofen 600 mg oral tablet 600 mg, 1, tablet, By Mouth, Every 6 hours, # 50 tablet, Refills 0, Tot. Refills 0, Maintenance, 03/05/22 22:26:00 EDT, Route to Pharmacy Electronically, [facility] #[id number], Partial fill upon patient request if the [...] 03/05/22 22:26:00 EDT, Route to Pharmacy Electronically, [facility] #[id number], Partial fill upon patient request if the [...] 0 Refills, Maintenance, 03/05/22 22:26:00 EDT,Chew Tablet, [facility] #[id number], Partial fill upon patient request if the [...] Personnel Name: Mariposa Adrian NP Address: [address] [place], [place] [address]
--- OUTSIDE RECORDS SUMMARY | 2024-04-10 10:55 | XMS_ITS | Continuity of Care Document ---
Author Organization [facility] e Medicine Address Unknown Care Team Providers Care Marketing Research Intern Name Role Phone Kaylah SNOW, Mariposa Cassidy Primary Care Physician [place] [facility] [place](s): 05/20/21 - 05/27/21 [facility] Repro[facility] Attending Physician: Christina Spence [...] tablet, 11 Refills, Maintenance, 07/05/20 10:24:00 EST, [facility] #[id number], Partial fill upon patient request if the prescription is for a schedule II opioid drug., 1 tablet By Mouth Daily, 158, cm, 05/02/20 14... Start Date: 07/05/20 Status: Ordered levothyroxine 150 mcg (0.15 mg) oral tablet 1 tablet = 150 mcg, By Mouth, Daily, # 60 tablet, 1 Refills, Maintenance, 02/17/21 13:28:00 EDT, Tablet, [facility] #[id number], Partial fill upon patient request if the prescription is for a schedule II opioid drug., 158, cm, 12/06/20 8:28:00 ED... Start Date: 02/17/21 Status: Ordered metFORMIN 500 mg oral tablet, extended release 3 tablet = 1,500 mg, By Mouth, Daily, with evening meal, # 90 tablet, 11 Refills, Maintenance, 01/31/20 11:39:00 EDT, [facility] #[id number], 158, cm, 01/29/20 13:44:00 EDT, Height, 88.2, kg, 01/09/19 16:14:00 EDT, Dry Weight Start Date: 01/31/20 Stop Date: 01/25/21 Status: Ordered methylPREDNISolone 16 mg oral tablet = 16 mg, By Mouth, Daily, Take for 4 days when instructed with the last dose being the day of frozen embryo transfer, # 4 tablet, 0 Refills, Maintenance, 05/13/21 8:56:00 EDT, [facility] #[id number], Partial fill upon patient request if the [...] 05/26/21 11:44:00 EST, Route to Pharmacy Electronically, [facility] #[id number], Partial fill upon patientrequest if the prescription is for a schedule II op... Start Date: 05/26/21 Stop Date: 06/05/21 Status: Ordered Provera 10 mg oral tablet 10 mg, 1, tablet, By Mouth, Daily, # 7 tablet, Refills 0, Tot. Refills 0, Maintenance, 02/17/21 13:23:00 EDT, Route to Pharmacy Electronically, [facility] #[id number], Partial fill upon patient request if the [...]
--- OUTSIDE RECORDS SUMMARY | 2024-04-10 10:55 | XMS_ITS | Continuity of Care Document ---
Author Organization [facility] ter Address [address] [place] [address]- Care Team Providers Care Supervisor Belt And Link Assembly Name Role Phone Kaylah SNOW, Mariposa Cassidy Primary Care Physician [phone] Encounter [facility] Date(s): 10/09/21 - 10/09/[address] [address] Discharge Disposition: A-D/C Home Attending Physician: Sofía [...] 08/26/21 11:37:00 EST, Route to Pharmacy Electronically, [facility] #[id number], Partial fill upon patient request if the prescription is for a schedule II opioi... Start Date: 08/26/21 Status: Ordered bisacodyl 10 mg rectal suppository 1 supp = 10 mg, Rectally, Daily, PRN for constipation, # 10 supp, 0 Refills, Maintenance, 08/10/21 18:57:00 EST, Suppository, [facility]/pharmacy #[id number], Partial fill upon patient request if the prescriptionis for a schedule II opioid drug., 158, cm, ... Start Date: 08/10/21 Status: Ordered clotrimazole 1% topical cream 1 application, Topically, 2 times a day, # 15 Gm, 0 Refills, Maintenance, 10/03/21 9:22:00 EDT, Cream, [facility]/pharmacy #[id number], Partial fill upon patient request if the prescription is for a schedule II opioid drug., 1 application Topically 2 times a day,... Start Date: 10/03/21 Status: Ordered clotrimazole 1% vaginal cream with applicator 1 application, Vaginally, Daily at bedtime, for 7 days, # 45 Gm, 0 Refills, Acute 10/13/21 13:30:00EDT, 10/06/21 13:30:00 EDT, Cream, [facility] #[id number], Partial fill upon patient request if the [...] Refills, Maintenance, 08/26/21 11:31:00 EST, CR Tablet, [facility] #[id number], Partial fill upon patient request if the [...] patch, 5 Refills, Maintenance, 06/09/21 18:36:00 EST, [facility] #[id number], Partial fill upon patient request if the prescription is for a schedule II opioid drug., 1 patch Topically, 158gerry, 12/06/20 8... Start Date: 06/09/21 Status: Ordered folic acid 0.4 mg oral tablet 1 tablet = 0.4 mg, By Mouth, Daily, # 100 tablet, 3 Refills, Maintenance, 06/26/21 16:54:00 EST, Tablet, [facility] #[id number], Partial fill upon patient request if the prescription is for a schedule II opioid drug., 158, gerry, 06/24/21 9:16:00 ES... Start Date: 06/26/21 Status: Ordered levothyroxine 150 mcg (0.15 mg) oral tablet 1 tablet = 150 mcg, By Mouth, Daily, # 60 tablet, 1 Refills, Maintenance, 02/17/21 13:28:00 EDT, Tablet, [facility] #[id number], Partial fill upon patient request if the [...] Refills, Maintenance, 08/10/21 18:58:00 EST, Tablet, [facility]/pharmacy #[id number], Partial fill upon patient [...] patch, 1 Refills, Maintenance, 06/10/21 14:42:00 EST, [facility] #[id number], Partial fill upon patient request if t... Start Date: 06/10/21 Status: Ordered Zofran 4 mg oral tablet 1 tablet = 4 mg, By Mouth, Every 8 hours, PRN as needed for nausea/vomiting, # 20 tablet, 0 Refills, Maintenance, 08/05/21 17:23:00 EST, Tablet, [facility] #[id number], Partial fill upon patientrequest if the prescription is for a schedule II op... Start Date: 08/05/21 Status: Ordered Zofran 8 mg oral tablet 1 tablet = 8 mg, By Mouth, 2 times a day, # 20 tablet, 0 Refills, Acute 08/27/22 11:32:00 EST, 08/26/21 11:31:00 EST, Tablet, [facility] #[id number], Partial fill upon patient request if the [...] recent to oldest [Reference Range]: 1 Weight 87.5 kg (10/09/21 12:50 PM) Oxygen Saturation [94-100 %] 100 % (10/09/21 12:50 PM) Pulse Rate [55-90 bpm] 81 bpm (10/09/21 12:50 PM) Blood Pressure [90-138/55-84 mm Hg] 116/ 71mm Hg (10/09/21 12:50 PM) Respiratory Rate [16-30 br/min] 18 br/mi n (10/09/21 12:50 PM) Temperature [96.8-100.4 DegF] 97.7 DegF (10/09/21 12:50 PM) Mode of Delivery (Oxygen) Room air (10/09/21 12:50 PM) Blood pressure sites Arm, right 1 (10/09/21 12:50 PM) Temperature Route Oral (10/09/21 12:50 PM) Dry Weight 87.5 kg (10/09/21 12:50 PM) 1Result Comment: right upper arm measured 36cm Social History Social History Type Response Smoking Status Never (less than 100 in lifetime) entered on: 08/25/21 Sex
--- OUTSIDE RECORDS SUMMARY | 2024-04-10 10:55 | XMS_ITS | Continuity of Care Document ---
Author Organization [facility] Address [address], [address]t [address] [place] [address] [place] [address]- Care Team Providers Care Coal Wheeler Name Role Phone Mason Rinaldi MD Primary Care Physician [phone] Encounter [facility] Date(s): 08/28/20 - 09/27/20 [facility] [address], 4th [address] [place] [address]- Allergies, Adverse Reactions, Alerts Substance Reaction Severity [...] each, 0 Refills, Maintenance, 05/09/20 7:54:00 EDT, [facility], 158, cm, 05/02/20 14:32:00 EDT, Height, 88.2, kg, 01/09/19 16:14:00 EDT, Dry Weight Start Date: 05/09/20 Status: Ordered Folbic oral tablet 1 tablet, By Mouth, Daily, # 30 tablet, 11 Refills, Maintenance, 07/05/20 10:24:00 EST, [facility] #[id number], Partial fill upon patient request if the prescription is for a schedule II opioid drug., 1 tablet By Mouth Daily, 158, cm, 05/02/20 14... Start Date: 07/05/20 Status: Ordered metFORMIN 500 mg oral tablet, extended release 3 tablet = 1,500 mg, By Mouth, Daily, with evening meal, # 90 tablet, 11 Refills, Maintenance, 01/31/20 11:39:00 EDT, [facility] #[id number], 158, cm, 01/29/20 13:44:00 EDT, Height, 88.2, [...] 05/31/20 15:20:00 EST, Route to Pharmacy Electronically, [facility] #[id number], Partial fill upon patient request, 158, cm, [...] 6 Refills, Maintenance, 02/05/20 15:13:00 EDT, Tablet, [facility] #[id number], 158, cm, 01/29/20 13:44:00 EDT, Height, 88.2, kg, 01/09/19 16:14:00 EDT, Dry Weight Start Date: 02/05/20 Status: Ordered Zofran 8 mg oral tablet 1 tablet = 8 mg, By Mouth, Every 8 hours, PRN Nausea & Vomiting, # 10 tablet, 0 Refills, Maintenance, 05/31/20 11:44:00 EST, Tablet, [facility] #[id number], Partial fill upon patient request, 158, cm, [...]
--- OUTSIDE RECORDS SUMMARY | 2024-04-10 10:55 | XMS_ITS | Continuity of Care Document ---
Author Organization [facility] [employer] [facility] Address [address] [place] [address], [address]t [place] [address]- Care Team Providers Care Solar Energy Specialist Name Role Phone Kaylah SNOW, Mariposa Cassidy Primary Care Physician [id number] Date(s): 12/18/21 - 01/17/22 [facility] [address] [facility], [address] [place] [address]- Allergies, Adverse Reactions, Alerts Substance Reaction Severity [...] 08/26/21 11:37:00 EST, Route to Pharmacy Electronically, [facility] #[id number], Partial fill upon patient request if the [...] Refills, Maintenance, 08/26/21 11:31:00 EST, CR Tablet, [facility] #[id number], Partial fill upon patient request if the prescription is for a schedule II opioid drug., 2 tablet By Mouth Daily... Start Date: 08/26/21 Status: Ordered folic acid 0.4 mg oral tablet 1 tablet = 0.4 mg, By Mouth, Daily, # 100 tablet, 3 Refills, Maintenance, 06/26/21 16:54:00 EST, Tablet, [facility] #[id number], Partial fill upon patient request if the [...] 08/27/22 11:32:00 EST, 08/26/21 11:31:00 EST, Tablet, [facility] #[id number], Partial fill upon patient request if the [...]
--- OUTSIDE RECORDS SUMMARY | 2024-04-10 10:55 | XMS_ITS | Continuity of Care Document ---
Author Organization [facility] Address Unknown Care Team Providers Care Plycor Operator Name Role Phone Kaylah SNOW, Mariposa Cassidy Primary Care Physician Encounter [facility] [id number] Date(s): 07/25/21 - 08/31/21 [facility] Attending Physician: Not on [...] 08/26/21 11:37:00 EST, Route to Pharmacy Electronically, [facility] #[id number], Partial fill upon patient request if the prescription is for a schedule II opioi... Start Date: 08/26/21 Status: Ordered bisacodyl 10 mg rectal suppository 1 supp = 10 mg, Rectally, Daily, PRN for constipation, # 10 supp, 0 Refills, Maintenance, 08/10/21 18:57:00 EST, Suppository, [facility]/pharmacy #[id number], Partial fill upon [...] Refills, Maintenance, 08/26/21 11:31:00 EST, CR Tablet, [facility] #[id number], Partial fill upon patient request if the [...] patch, 5 Refills, Maintenance, 06/09/21 18:36:00 EST, [facility] #[id number], Partial fill upon patient request if the prescription is for a schedule II opioid drug., 1 patch Topically, 158, cm, 12/06/20 8... Start Date: 06/09/21 Status: Ordered folic acid 0.4 mg oral tablet 1 tablet = 0.4 mg, By Mouth, Daily, # 100 tablet, 3 Refills, Maintenance, 06/26/21 16:54:00 EST, Tablet, [facility] #[id number], Partial fill upon patient request if the prescription is for a schedule II opioid drug., 158, cm, 06/24/21 9:16:00 ES... Start Date: 06/26/21 Status: Ordered levothyroxine 150 mcg (0.15 mg) oral tablet 1 tablet = 150 mcg, By Mouth, Daily, # 60 tablet, 1 Refills, Maintenance, 02/17/21 13:28:00 EDT, Tablet, [facility] #[id number], Partial fill upon patient request if the [...] 5Refills, Maintenance, 07/09/21 10:58:00 EST, [facility], Partial fill upon patient request if the prescription is for a schedule II opioid... Start Date: 07/09/21 Status: Ordered Reglan 5 mg oral tablet 1 tablet = 5 mg, By Mouth, Every 6 hours, PRN Nausea & Vomiting, # 90 tablet, 1 Refills, Maintenance, 08/10/21 18:58:00 EST, Tablet, [facility]/pharmacy #[id number], Partial fill upon patient request if the prescription is for a schedule II opioid drug., 158, cm,... Start Date: 08/10/21 Status: Ordered triamcinolone 0.025% topical ointment 1 application, Topically, 2 times a day, for 14 days, # 15 Gm, 0 Refills, Acute 09/09/21 11:35:00 EST, 08/26/21 11:35:00 EST, Ointment, [facility] #[id number], Partial fill upon patient request if the [...] patch, 1 Refills, Maintenance, 06/10/21 14:42:00 EST, [facility] #[id number], Partial fill upon patient request if t... Start Date: 06/10/21 Status: Ordered Zofran 4 mg oral tablet 1 tablet = 4 mg, By Mouth, Every 8 hours, PRN as needed for nausea/vomiting, # 20 tablet, 0 Refills, Maintenance, 08/05/21 17:23:00 EST, Tablet, [facility] #[id number], Partial fill upon patientrequest if the prescription is for a schedule II op... Start Date: 08/05/21 Status: Ordered Zofran 8 mg oral tablet 1 tablet = 8 mg, By Mouth, 2 times a day, # 20 tablet, 0 Refills, Acute 08/27/22 11:32:00 EST, 08/26/21 11:31:00 EST, Tablet, [facility] #[id number], Partial fill upon patient request if the [...]
--- OUTSIDE RECORDS SUMMARY | 2024-04-10 10:55 | XMS_ITS | Continuity of Care Document ---
Author Organization [facility] ter Address [address] [place] [address]- Care Team Providers Care Reconciliation Manager Name Role Phone Kaylah SNOW, Mariposa Cassidy Primary Care Physician [place] [facility] - 02/11/[address] [address] Discharge Disposition: A-D/C Home Attending [...] 08/26/21 11:37:00 EST, Route to Pharmacy Electronically, [facility] #[id number], Partial fill upon patient request if the prescription is for a schedule II opioi... Start Date: 08/26/21 Status: Ordered bisacodyl 10 mg rectal suppository 1 supp = 10 mg, Rectally, Daily, PRN for constipation, # 10 supp, 0 Refills, Maintenance, 08/10/21 18:57:00 EST, Suppository, [facility]/pharmacy #[id number], Partial fill upon patient request if the [...] 3 Refills, Maintenance, 06/26/21 16:54:00 EST, Tablet, [facility] #[id number], Partial fill upon patient request if the [...] 08/10/21 18:58:00 EST, Tablet, [facility]/pharmacy #[id number], Partial fill upon patient request if the prescription is for a schedule II opioid drug., 158, cm,... Start Date: 08/10/21 Status: Ordered Zofran 8 mg oral tablet 1 tablet = 8 mg, By Mouth, 2 times a day, # 20 tablet, 0 Refills, Acute 08/27/22 11:32:00 EST, 08/26/21 11:31:00 EST, Tablet, [facility] #[id number], Partial fill upon patient request if the [...]
--- OUTSIDE RECORDS SUMMARY | 2024-04-10 10:56 | XMS_ITS | Continuity of Care Document ---
Author Organization [facility] Address Unknown Care Team Providers Care Aviation Engineer Name Role Phone Kaylah SNOW, Marpiosa Cassidy Primary Care Physician Encounter [facility] Date(s): 05/09/21 - 06/08/21 [facility] Allergies, Adverse Reactions, Alerts Substance [...] tablet, 11 Refills, Maintenance, 07/05/20 10:24:00 EST, [facility] #[id number], Partial fill upon patient request if the prescription is for a schedule II opioid drug., 1 tablet By Mouth Daily, 158, cm, 05/02/20 14... Start Date: 07/05/20 Status: Ordered levothyroxine 150 mcg (0.15 mg) oral tablet 1 tablet = 150 mcg, By Mouth, Daily, # 60 tablet, 1 Refills, Maintenance, 02/17/21 13:28:00 EDT, Tablet, [facility] #[id number], Partial fill upon patient request if the prescription is for a schedule II opioid drug., 158, cm, 12/06/20 8:28:00 ED... Start Date: 02/17/21 Status: Ordered metFORMIN 500 mg oral tablet, extended release 3 tablet = 1,500 mg, By Mouth, Daily, with evening meal, # 90 tablet, 11 Refills, Maintenance, 01/31/20 11:39:00 EDT, [facility] #[id number], 158, cm, 01/29/20 13:44:00 EDT, Height, 88.2, kg, 01/09/19 16:14:00 EDT, Dry Weight Start Date: 01/31/20 Stop Date: 01/25/21 Status: Ordered methylPREDNISolone 16 mg oral tablet = 16 mg, By Mouth, Daily, Take for 4 days when instructed with the last dose being the day of frozen embryo transfer, # 4 tablet, 0 Refills, Maintenance, 05/13/21 8:56:00 EDT, [facility] #[id number], Partial fill upon patient request if the [...] Refills, Maintenance, 03/18/21 9:22:00 EDT, [facility], Partial fill upon patient request if the prescription is for a schedule II opioid... Start Date: 03/18/21 Status: Ordered Provera 10 mg oral tablet 10 mg, 1, tablet, By Mouth, Daily, # 10 tablet, Refills 0, Tot. Refills 0, Maintenance, 05/26/21 11:44:00 EST, Route to Pharmacy Electronically, [facility] #[id number], Partial fill upon patientrequest if the prescription is for a schedule II op... Start Date: 05/26/21 Stop Date: 06/05/21 Status: Ordered Provera 10 mg oral tablet 10 mg, 1, tablet, By Mouth, Daily, # 7 tablet, Refills 0, Tot. Refills 0, Maintenance, 02/17/21 13:23:00 EDT, Route to Pharmacy Electronically, [facility] #[id number], Partial fill upon patient request if the [...]
--- OUTSIDE RECORDS SUMMARY | 2024-04-10 10:56 | XMS_ITS | Continuity of Care Document ---
Author Organization [facility] Address [address], [address]t [address] [place] [address]- Care Team Providers Care Dials Inspector Name Role Phone Not on Staff, PCP Primary Care Physician Unavail able Encounter [facility] Date(s): 06/09/19 - 07/29/19 [facility] [address], 4th [address] [place] [address]- [facility] Attending Physician: Deidra Luong MD
--- OUTSIDE RECORDS SUMMARY | 2024-04-10 10:56 | XMS_ITS | Continuity of Care Document ---
Author Organization [facility] [employer] [facility] Address [address] [place] [address], [address] [place] [address]- Care Team Providers Care Property Management Bookkeeper Name Role Phone Kaylah SNOW, Mariposa Cassidy Primary Care Physician Encounter [facility] Date(s): 02/09/22 - 03/11/22 [facility] [address] [place] [address], 4th [place] [address]- Allergies, Adverse Reactions, Alerts Substance Reaction Severity [...] 0 Refills, Maintenance, 03/05/22 22:26:00 EDT, Capsule, [facility] #[id number], Partial fill upon patient request if the prescription is for a schedule II opioid drBrenda Start Date: 03/05/22 Status: Ordered aspirin 81 mg oral tablet, chewable 162 mg, 2, tablet, Chew, Daily, # 60 tablet, Refills 8, Tot. Refills 8, Maintenance, 08/26/21 11:37:00 EST, Route to Pharmacy Electronically, [facility] #[id number], Partial fill upon patient request if the prescription is for a schedule II opioi... Start Date: 08/26/21 Status: Ordered Colace sodium 100 mg oral capsule 100 mg, 1, capsule, By Mouth, 2 times a day, PRN, # 20 capsule, Refills 0, Tot. Refills 0, Maintenance, for constipation, 03/05/22 22:26:00 EDT, Route to Pharmacy Electronically, [facility]#[id number], Partial fill upon patient request if the pr... Start Date: 03/05/22 Status: Ordered ibuprofen 600 mg oral tablet 600 mg, 1, tablet, By Mouth, Every 6 hours, # 50 tablet, Refills 0, Tot. Refills 0, Maintenance, 03/05/22 22:26:00 EDT, Route to Pharmacy Electronically, [facility] #[id number], Partial fill upon patient request if the [...] 03/05/22 22:26:00 EDT, Route to Pharmacy Electronically, [facility] #[id number], Partial fill upon patient request if the [...] 0 Refills, Maintenance, 03/05/22 22:26:00 EDT,Chew Tablet, [facility] #[id number], Partial fill upon patient request if the [...]
--- OUTSIDE RECORDS SUMMARY | 2024-04-10 10:56 | XMS_ITS | Continuity of Care Document ---
Author Organization [facility] Address [address] [place] [address]- Care Team Providers Care Salon Stylist Name Role Phone Mason Rinaldi MD Primary Care Physician [place] [facility] Date(s): 12/13/19 - 12/20/19 [facility] [address] [place] [address] [facility] Attending Physician: Kyle REYES, Dasha Referring Physician: Mason Rinaldi MD Allergies, Adverse [...] Refills, Maintenance, 08/01/19 12:52:00 EST,[facility] - [address] [place] [address], 1 tablet By Mouth Daily,... Start Date: [...] 0 Refills, Maintenance, 09/22/19 13:27:00 EST, Tablet, [facility] #[id number], 158, cm, 09/22/19 13:02:00 EST, Height, 88.2, [...] Refills 0, Maintenance, 08/19/17 14:09:51 Start Date: 2/1/18 Status: Ordered Problem List Condition Effective Dates [...]
--- OUTSIDE RECORDS SUMMARY | 2024-04-10 10:56 | XMS_ITS | Continuity of Care Document ---
Author Organization [facility] [employer] [facility] Address [address] [place] [address], [address] [address]- Care Team Providers Care Mold Maintenance Technician Name Role Phone Kaylah SNOW, Mariposa Cassidy Primary Care Physician [id number] Date(s): 02/06/22 - 02/13/22 [facility] [address], [address] [place], [place] [address] Attending Physician: Yong REYES, Sofía [...] 08/26/21 11:37:00 EST, Route to Pharmacy Electronically, [facility] #[id number], Partial fill upon patient request if the [...] 3 Refills, Maintenance, 06/26/21 16:54:00 EST, Tablet, [facility] #[id number], Partial fill upon patient request if the [...] 08/27/22 11:32:00 EST, 08/26/21 11:31:00 EST, Tablet, [facility] #[id number], Partial fill upon patient request if the [...] oldest [Reference Range]: 1 Height 158 cm (02/06/22 2:45 PM) Weight 90.45 kg (02/06/22 2:45 PM) Body Mass Index [18.5-24.99] 36.23 *>HHI* (02/06/22 2:45 PM) Blood Pressure [90-138/55-84 mm Hg] 112/ 60mm Hg (02/06/22 2:45 PM) Blood pressure sites Arm, left (02/06/22 2:45 PM) Weight Obtained Via Standing scale (02/06/22 2:45 PM) Social History Social History Type Response Smoking Status Never (less than 100 in lifetime) entered on: 08/25/21 Sex
--- OUTSIDE RECORDS SUMMARY | 2024-04-10 10:56 | XMS_ITS | Continuity of Care Document ---
Author Organization [facility] [employer] Address [address] [place] [address], [address] [place] [address]- Care Team Providers Care Mushroom Laborer Name Role Phone Kaylah SNOW, Mariposa Cassidy Primary Care Physician [id number] Date(s): 10/03/21 - 11/02/21 [facility] [employer] [facility] [address], [address] [place] [address]- Allergies, Adverse Reactions, Alerts Substance Reaction Severity [...] 08/26/21 11:37:00 EST, Route to Pharmacy Electronically, [facility] #[id number], Partial fill upon patient request if the prescription is for a schedule II opioi... Start Date: 08/26/21 Status: Ordered bisacodyl 10 mg rectal suppository 1 supp = 10 mg, Rectally, Daily, PRN for constipation, # 10 supp, 0 Refills, Maintenance, 08/10/21 18:57:00 EST, Suppository, [facility]/pharmacy #[id number], Partial fill upon patient request if the prescriptionis for a schedule II opioid drug., 158, cm, ... Start Date: 08/10/21 Status: Ordered clotrimazole 1% topical cream 1 application, Topically, 2 times a day, # 15 Gm, 0 Refills, Maintenance, 10/03/21 9:22:00 EDT, Cream, [facility]/pharmacy #[id number], Partial fill upon patient [...] 10/21/21 13:22:00 EDT, Route to Pharmacy Electronically, [facility] #[id number], Partial fill upon patient request if the [...] Refills, Maintenance, 08/26/21 11:31:00 EST, CR Tablet, [facility] #[id number], Partial fill upon patient request if the [...] patch, 5 Refills, Maintenance, 06/09/21 18:36:00 EST, [facility] #[id number], Partial fill upon patient request if the prescription is for a schedule II opioid drug., 1 patch Topically, 158, cm, 12/06/20 8... Start Date: 06/09/21 Status: Ordered folic acid 0.4 mg oral tablet 1 tablet = 0.4 mg, By Mouth, Daily, # 100 tablet, 3 Refills, Maintenance, 06/26/21 16:54:00 EST, Tablet, [facility] #[id number], Partial fill upon patient request if the [...] Refills, Maintenance, 08/10/21 18:58:00 EST, Tablet, [facility]/pharmacy #[id number], Partial fill upon patient request if the [...] patch, 1 Refills, Maintenance, 06/10/21 14:42:00 EST, [facility] #[id number], Partial fill upon patient request if t... Start Date: 06/10/21 Status: Ordered Zofran 4 mg oral tablet 1 tablet = 4 mg, By Mouth, Every 8 hours, PRN as needed for nausea/vomiting, # 20 tablet, 0 Refills, Maintenance, 08/05/21 17:23:00 EST, Tablet, [facility] #[id number], Partial fill upon patientrequest if the prescription is for a schedule II op... Start Date: 08/05/21 Status: Ordered Zofran 8 mg oral tablet 1 tablet = 8 mg, By Mouth, 2 times a day, # 20 tablet, 0 Refills, Acute 08/27/22 11:32:00 EST, 08/26/21 11:31:00 EST, Tablet, [facility] #[id number], Partial fill upon patient request if the [...]
--- OUTSIDE RECORDS SUMMARY | 2024-04-10 10:56 | XMS_ITS | Continuity of Care Document ---
Author Organization [facility] [email or web address] [facility] Address [address] [place] [address], [address] [place] [address]- Care Team Providers Care Health Care Technician Name Role Phone Kaylah SNOW, Mariposa Cassidy Primary Care Physician [place] [facility] [place] 10[place]11/21 [facility] [employer] [facility] [address] [place] [address], [address] [place] [address]- Allergies, Adverse Reactions, Alerts Substance Reaction Severity [...] 08/26/21 11:37:00 EST, Route to Pharmacy Electronically, [facility] #[id number], Partial fill upon patient request if the [...] 0 Refills, Maintenance, 10/03/21 9:22:00 EDT, Cream, [facility]/pharmacy #[id number], Partial fill upon patient request if the prescription is for a schedule II opioid drug., 1 application Topically 2 times a day,... Start Date: 10/03/21 Status: Ordered clotrimazole 1% vaginal cream with applicator 1 application, Vaginally, Daily at bedtime, for 7 days, # 45 Gm, 0 Refills, Acute 10/13/21 13:30:00EDT, 10/06/21 13:30:00 EDT, Cream, [facility] #[id number], Partial fill upon patient request if the [...] Refills, Maintenance, 08/26/21 11:31:00 EST, CR Tablet, [facility] #[id number], Partial fill upon patient request if the [...] patch, 5 Refills, Maintenance, 06/09/21 18:36:00 EST, [facility] #[id number], Partial fill upon patient request if the prescription is for a schedule II opioid drug., 1 patch Topically, 158, cm, 12/06/20 8... Start Date: 06/09/21 Status: Ordered folic acid 0.4 mg oral tablet 1 tablet = 0.4 mg, By Mouth, Daily, # 100 tablet, 3 Refills, Maintenance, 06/26/21 16:54:00 EST, Tablet, [facility] #[id number], Partial fill upon patient request if the prescription is for a schedule II opioid drug., 158, cm, 06/24/21 9:16:00 ES... Start Date: 06/26/21 Status: Ordered levothyroxine 150 mcg (0.15 mg) oral tablet 1 tablet = 150 mcg, By Mouth, Daily, # 60 tablet, 1 Refills, Maintenance, 02/17/21 13:28:00 EDT, Tablet, [facility] #[id number], Partial fill upon patient request if the [...] patch, 1 Refills, Maintenance, 06/10/21 14:42:00 EST, [facility] #[id number], Partial fill upon patient request if t... Start Date: 06/10/21 Status: Ordered Zofran 4 mg oral tablet 1 tablet = 4 mg, By Mouth, Every 8 hours, PRN as needed for nausea/vomiting, # 20 tablet, 0 Refills, Maintenance, 08/05/21 17:23:00 EST, Tablet, [facility] #[id number], Partial fill upon patientrequest if the prescription is for a schedule II op... Start Date: 08/05/21 Status: Ordered Zofran 8 mg oral tablet 1 tablet = 8 mg, By Mouth, 2 times a day, # 20 tablet, 0 Refills, Acute 08/27/22 11:32:00 EST, 08/26/21 11:31:00 EST, Tablet, [facility] #[id number], Partial fill upon patient request if the [...]
--- OUTSIDE RECORDS SUMMARY | 2024-04-10 10:56 | XMS_ITS | Continuity of Care Document ---
Author Organization [facility] Address Unknown Care Team Providers Care Laundry Housekeeping Aide Name Role Phone Kaylah SNOW, Mariposa Cassidy Primary Care Physician [place] [facility] [place] 03/10/21 - 04/09/21 [facility] Allergies, Adverse Reactions, Alerts [...] tablet, 11 Refills, Maintenance, 07/05/20 10:24:00 EST, [facility] #[id number], Partial fill upon patient request if the prescription is for a schedule II opioid drug., 1 tablet By Mouth Daily, 158, cm, 05/02/20 14... Start Date: 07/05/20 Status: Ordered levothyroxine 150 mcg (0.15 mg) oral tablet 1 tablet = 150 mcg, By Mouth, Daily, # 60 tablet, 1 Refills, Maintenance, 02/17/21 13:28:00 EDT, Tablet, [facility] #[id number], Partial fill upon patient request if the prescription is for a schedule II opioid drug., 158, cm, 12/06/20 8:28:00 ED... Start Date: 02/17/21 Status: Ordered metFORMIN 500 mg oral tablet, extended release 3 tablet = 1,500 mg, By Mouth, Daily, with evening meal, # 90 tablet, 11 Refills, Maintenance, 01/31/20 11:39:00 EDT, [facility] #[id number], 158, cm, 01/29/20 13:44:00 EDT, Height, 88.2, kg, 01/09/19 16:14:00 EDT, Dry Weight Start Date: 01/31/20 Stop Date: 01/25/21 Status: Ordered methylPREDNISolone 16 mg oral tablet = 16 mg, By Mouth, Daily, Take for 4 days when instructed with the last dose being the day of frozen embryo transfer, # 4 tablet, 0 Refills, Maintenance, 03/18/21 9:26:00 EDT, [facility],Partial fill upon patient request if the prescripti... Start Date: 03/18/21 Status: Ordered omeprazole 20 mg oral enteric [...] Refills, Maintenance, 03/18/21 9:22:00 EDT, [facility], Partial fill upon patient request if the prescription is for a schedule II opioid drug., 158, cm, 12/06/... Start Date: 03/18/21 Status: Ordered progesterone 50 mg/mL intramuscular solution See Instructions, 75mg/ml 1.5 ml (sesame oil) Intramuscular Daily. Start when instructed, # 5 each,5 Refills, Maintenance, 03/18/21 9:22:00 EDT, [facility], Partial fill upon patient request if the prescription is for a schedule II opioid... Start Date: 03/18/21 Status: Ordered Provera 10 mg oral tablet 10 mg, 1, tablet, By Mouth, Daily, # 7 tablet, Refills 0, Tot. Refills 0, Maintenance, 02/17/21 13:23:00 EDT, Route to Pharmacy Electronically, [facility] #[id number], Partial fill upon patient request if the [...]
--- OUTSIDE RECORDS SUMMARY | 2024-04-10 10:56 | XMS_ITS | Continuity of Care Document ---
Author Organization [facility] [employer] [facility] Address [address] [place] [address], [address] [place] [address]- Care Team Providers Care Hiv Prevention Specialist Name Role Phone Kaylah SNOW, Mariposa Cassidy Primary Care Physician [id number] Date(s): 12/18/21 - 01/17/22 [facility] [employer] [facility] [address] [facility], [address] [place] [address]- Allergies, Adverse Reactions, Alerts Substance Reaction Severity [...] 08/26/21 11:37:00 EST, Route to Pharmacy Electronically, [facility] #[id number], Partial fill upon patient request if the prescription is for a schedule II opioi... Start Date: 08/26/21 Status: Ordered bisacodyl 10 mg rectal suppository 1 supp = 10 mg, Rectally, Daily, PRN for constipation, # 10 supp, 0 Refills, Maintenance, 08/10/21 18:57:00 EST, Suppository, [facility]/pharmacy #[id number], Partial fill upon patient request [...] Refills, Maintenance, 08/26/21 11:31:00 EST, CR Tablet, [facility] #[id number], Partial fill upon patient request if the prescription is for a schedule II opioid drug., 2 tablet By Mouth Daily... Start Date: 08/26/21 Status: Ordered folic acid 0.4 mg oral tablet 1 tablet = 0.4 mg, By Mouth, Daily, # 100 tablet, 3 Refills, Maintenance, 06/26/21 16:54:00 EST, Tablet, [facility] #[id number], Partial fill upon patient request if the [...] 1 Refills, Maintenance, 08/10/21 18:58:00 EST, Tablet, [facility]/pharmacy #[id number], Partial fill upon patient request if the prescription is for a schedule II opioid drug., 158, cm,... Start Date: 08/10/21 Status: Ordered Zofran 8 mg oral tablet 1 tablet = 8 mg, By Mouth, 2 times a day, # 20 tablet, 0 Refills, Acute 08/27/22 11:32:00 EST, 08/26/21 11:31:00 EST, Tablet, [facility] #[id number], Partial fill upon patient request if the [...]
--- OUTSIDE RECORDS SUMMARY | 2024-04-10 10:56 | XMS_ITS | Continuity of Care Document ---
Author Organization [facility] Address [address] [place] [address]- Care Team Providers Care Nps Name Role Phone Kaylah SNOW, Mariposa Cassidy Primary Care Physician [place] [facility] [place] 06[place]29[place]21 [facility] [address] [place] [address]- Attending Physician: Farzad Resendez Admitting Physician: AdmFarzad [...] patch, 5 Refills, Maintenance, 06/09/21 18:36:00 EST, [facility] #[id number], Partial fill upon patient request if the prescription is for a schedule II opioid drug., 1 patch Topically, 158, cm, 12/06/20 8... Start Date: 06/09/21 Status: Ordered folic acid 0.4 mg oral tablet 1 tablet = 0.4 mg, By Mouth, Daily, # 100 tablet, 3 Refills, Maintenance, 06/26/21 16:54:00 EST, Tablet, [facility] #[id number], Partial fill upon patient request if the prescription is for a schedule II opioid drug., 158, cm, 06/24/21 9:16:00 ES... Start Date: 06/26/21 Status: Ordered levothyroxine 150 mcg (0.15 mg) oral tablet 1 tablet = 150 mcg, By Mouth, Daily, # 60 tablet, 1 Refills, Maintenance, 02/17/21 13:28:00 EDT, Tablet, [facility] #[id number], Partial fill upon patient request if the prescription is for a schedule II opioid drug., 158, cm, 12/06/20 8:28:00 ED... Start Date: 02/17/21 Status: Ordered metFORMIN 500 mg oral tablet, extended release 3 tablet = 1,500 mg, By Mouth, Daily, with evening meal, # 90 tablet, 11 Refills, Maintenance, 01/31/20 11:39:00 EDT, [facility] #[id number], 158, cm, 01/29/20 13:44:00 EDT, Height, 88.2, kg, 01/09/19 16:14:00 EDT, Dry Weight Start Date: 01/31/20 Stop Date: 01/25/21 Status: Ordered methylPREDNISolone 16 mg oral tablet = 16 mg, By Mouth, Daily, Take for 4 days when instructed with the last dose being the day of frozen embryo transfer, # 4 tablet, 0 Refills, Maintenance, 06/09/21 15:38:00 EST, [facility], Partial fill upon patient request [...] Refills, Maintenance, 06/09/21 15:40:00 EST, [facility], Partial fill upon patient request if the prescription is for a schedule II opioi... Start Date: 06/09/21 Status: Ordered Provera 10 mg oral tablet 10 mg, 1, tablet, By Mouth, Daily, # 10 tablet, Refills 0, Tot. Refills 0, Maintenance, 05/26/21 11:44:00 EST, Route to Pharmacy Electronically, [facility] #[id number], Partial fill upon patientrequest if the prescription is for a schedule II op... Start Date: 05/26/21 Stop Date: 06/05/21 Status: Ordered Provera 10 mg oral tablet 10 mg, 1, tablet, By Mouth, Daily, # 7 tablet, Refills 0, Tot. Refills 0, Maintenance, 02/17/21 13:23:00 EDT, Route to Pharmacy Electronically, [facility] #[id number], Partial fill upon patient request if the prescription is for a schedule II opi... Start Date: 02/17/21 Stop Date: 02/24/21 Status: Ordered Valium 5 mg oral tablet 5 mg, 1, tablet, By Mouth, fisher scallop to Procedure, May need to repeat!, # 2 tablet, Refills 0, Tot. Refills 0, Maintenance, 06/25/21 10:29:00 EST, Route to Pharmacy Electronically, [facility]#[id number], Partial fill upon patient request if the pr... Start Date: 06/25/21 Status: Ordered Vivelle-Dot 0.1 mg/24 hours twice weekly transdermal film, extended release See Instructions, Place 1 patch on day 1-4 then 2 patches on day 5-10 and then 4 patches on day 11-14 changing patches QOD., # 8 patch, 1 Refills, Maintenance, 06/10/21 14:42:00 EST, [facility] #[id number], Partial fill upon patient request if t... [...]
--- OUTSIDE RECORDS SUMMARY | 2024-04-10 10:56 | XMS_ITS | Continuity of Care Document ---
Author Organization [facility] Address Unknown Care Team Providers Care Physical Education Professor Name Role Phone Kaylah SNOW, Mariposa Cassidy Primary Care Physician [phone] [place] [facility] [id number] Date(s): 07/17/21 - 07/24/21 [facility] Attending Physician: Not on [...] patch, 5 Refills, Maintenance, 06/09/21 18:36:00 EST, [facility] #[id number], Partial fill upon patient request if the prescription is for a schedule II opioid drug., 1 patch Topically, 158, cm, 12/06/20 8... Start Date: 06/09/21 Status: Ordered folic acid 0.4 mg oral tablet 1 tablet = 0.4 mg, By Mouth, Daily, # 100 tablet, 3 Refills, Maintenance, 06/26/21 16:54:00 EST, Tablet, [facility] #[id number], Partial fill upon patient request if the prescription is for a schedule II opioid drug., 158, cm, 06/24/21 9:16:00 ES... Start Date: 06/26/21 Status: Ordered levothyroxine 150 mcg (0.15 mg) oral tablet 1 tablet = 150 mcg, By Mouth, Daily, # 60 tablet, 1 Refills, Maintenance, 02/17/21 13:28:00 EDT, Tablet, [facility] #[id number], Partial fill upon patient request if the prescription is for a schedule II opioid drug., 158, cm, 12/06/20 8:28:00 ED... Start Date: 02/17/21 Status: Ordered metFORMIN 500 mg oral tablet, extended release 3 tablet = 1,500 mg, By Mouth, Daily, with evening meal, # 90 tablet, 11 Refills, Maintenance, 01/31/20 11:39:00 EDT, [facility] #[id number], 158, cm, 01/29/20 13:44:00 EDT, Height, 88.2, [...] 07/17/21 16:04:00 EST, Route to Pharmacy Electronically, [facility] #[id number], Partial fill upon patient request, 158, cm, [...] 05/26/21 11:44:00 EST, Route to Pharmacy Electronically, [facility] #[id number], Partial fill upon patientrequest if the prescription is for a schedule II op... Start Date: 05/26/21 Stop Date: 06/05/21 Status: Ordered Provera 10 mg oral tablet 10 mg, 1, tablet, By Mouth, Daily, # 7 tablet, Refills 0, Tot. Refills 0, Maintenance, 02/17/21 13:23:00 EDT, Route to Pharmacy Electronically, [facility] #[id number], Partial fill upon patient request if the prescription is for a schedule II opi... Start Date: 02/17/21 Stop Date: 02/24/21 Status: Ordered Valium 5 mg oral tablet 5 mg, 1, tablet, By Mouth, family educator to Procedure, May need to repeat!, # 2 tablet, Refills 0, Tot. Refills 0, Maintenance, 06/25/21 10:29:00 EST, Route to Pharmacy Electronically, [facility]#[id number], Partial fill upon patient request if the pr... Start Date: 06/25/21 Status: Ordered Vivelle-Dot 0.1 mg/24 hours twice weekly transdermal film, extended release See Instructions, Place 1 patch on day 1-4 then 2 patches on day 5-10 and then 4 patches on day 11-14 changing patches QOD., # 8 patch, 1 Refills, Maintenance, 06/10/21 14:42:00 EST, [facility] #[id number], Partial fill upon patient request if t... [...]
--- OUTSIDE RECORDS SUMMARY | 2024-04-10 10:56 | XMS_ITS | Continuity of Care Document ---
Author Organization [facility] Address [address] [place] [address], [address] [place] [address]- Care Team Providers Care Customer Strategy Manager Name Role Phone Kaylah SNOW, Mariposa Cassidy Primary Care Physician [place] [facility] [place](s): 11/20/21 - 12/20/21 [facility] [employer] [facility] [address] [place] [address], [address] [place] [address]- Allergies, Adverse Reactions, Alerts Substance Reaction Severity [...] 08/26/21 11:37:00 EST, Route to Pharmacy Electronically, [facility] #[id number], Partial fill upon patient request if the [...] 10/21/21 13:22:00 EDT, Route to Pharmacy Electronically, [facility] #[id number], Partial fill upon patient request if the [...] Refills, Maintenance, 08/26/21 11:31:00 EST, CR Tablet, [facility] #[id number], Partial fill upon patient request if the [...] patch, 5 Refills, Maintenance, 06/09/21 18:36:00 EST, [facility] #[id number], Partial fill upon patient request if the prescription is for a schedule II opioid drug., 1 patch Topically, 158, cm, 12/06/20 8... Start Date: 06/09/21 Status: Ordered folic acid 0.4 mg oral tablet 1 tablet = 0.4 mg, By Mouth, Daily, # 100 tablet, 3 Refills, Maintenance, 06/26/21 16:54:00 EST, Tablet, [facility] #[id number], Partial fill upon patient request if the [...] 08/10/21 18:58:00 EST, Tablet, [facility]acy #[id number], Partial fill upon patient request if the [...] patch, 1 Refills, Maintenance, 06/10/21 14:42:00 EST, [facility] #[id number], Partial fill upon patient request if t... Start Date: 06/10/21 Status: Ordered Zofran 4 mg oral tablet 1 tablet = 4 mg, By Mouth, Every 8 hours, PRN as needed for nausea/vomiting, # 20 tablet, 0 Refills, Maintenance, 08/05/21 17:23:00 EST, Tablet, [facility] #[id number], Partial fill upon patientrequest if the prescription is for a schedule II op... Start Date: 08/05/21 Status: Ordered Zofran 8 mg oral tablet 1 tablet = 8 mg, By Mouth, 2 times a day, # 20 tablet, 0 Refills, Acute 08/27/22 11:32:00 EST, 08/26/21 11:31:00 EST, Tablet, [facility] #[id number], Partial fill upon patient request if the [...]
--- OUTSIDE RECORDS SUMMARY | 2024-04-10 10:56 | XMS_ITS | Continuity of Care Document ---
Author Organization [facility] Address [address], [address] [place] [address]- Care Team Providers Care Stripper Cutter Machine Name Role Phone Mason Rinaldi MD Primary Care Physician [place] [facility] [place]/21[place]20 - 03/28/20 [facility] [address] [place] [address]- [facility] Attending Physician: Deidra Luong MD [...] 2 pack/packet, 3 Refills, Maintenance, 01/12/20 17:03:00 EDT,[facility] #[id number], 1 tablet By Mouth Piedad... Start Date: [...] 0 Refills, Maintenance, 12/27/19 10:14:00 EDT, Tablet, [facility] #[id number], labs needed prior to next refill, 158, cm, 09/22/19 1... Start Date: 12/27/19 Status: Ordered levothyroxine 175 mcg (0.175 mg) oral tablet 1 tablet = 175 mcg, By Mouth, Daily, # 30 tablet, 3 Refills, Maintenance, 02/01/20 13:20:00 EDT, Tablet, [facility] #[id number], 158, cm, 01/29/20 13:44:00 EDT, Height, 88.2, [...] tablet, 11 Refills, Maintenance, 01/31/20 11:39:00 EDT, [facility] #[id number], 158, cm, 01/29/20 13:44:00 EDT, Height, 88.2, [...] 6 Refills, Maintenance, 02/05/20 15:13:00 EDT, Tablet, [facility] #[id number], 158, cm, 01/29/20 13:44:00 EDT, Height, 88.2, [...] oldest [Reference Range]: 1 Height 158 cm (03/21/20 8:43 AM) Weight 88.2 kg (03/21/20 8:43 AM) Body Mass Index [18.5-24.99] 35.33 *>HHI* (03/21/20 8:43 AM) Blood Pressure [90-138/55-84 mm Hg] 117/ 65mm Hg (03/21/20 8:43 AM) Social History Social History Type Response Smoking Status Never smoker; Tobacc o user in household: No entered on: 12/24/15 Sex
--- OUTSIDE RECORDS SUMMARY | 2024-04-10 10:56 | XMS_ITS | Continuity of Care Document ---
Author Organization [facility] [facility] Address [address] [place] [address], [address] [place] [address]- Care Team Providers Care Erisa Attorney Name Role Phone Kaylah SNOW, Mariposa Cassidy Primary [id number] - [facility]17[facility] [address] [facility], 4th [place] [address]- Attending Physician: Sofía Beach MD Referring Physician: Mary Herrera MD Allergies, Adverse [...] 0 Refills, Maintenance, 03/05/22 22:26:00 EDT, Capsule, [facility] #[id number], Partial fill upon patient request if the prescription is for a schedule II opioid . Start Date: 03/05/22 Status: Ordered aspirin 81 mg oral tablet, chewable 162 mg, 2, tablet, Chew, Daily, # 60 tablet, Refills 8, Tot. Refills 8, Maintenance, 08/26/21 11:37:00 EST, Route to Pharmacy Electronically, [facility] #[id number], Partial fill upon patient request if the prescription is for a schedule II opioi... Start Date: 08/26/21 Status: Ordered Colace sodium 100 mg oral capsule 100 mg, 1, capsule, By Mouth, 2 times a day, PRN, # 20 capsule, Refills 0, Tot. Refills 0, Maintenance, for constipation, 03/05/22 22:26:00 EDT, Route to Pharmacy Electronically, [facility][id number], Partial fill upon patient request if the pr... Start Date: 03/05/22 Status: Ordered ibuprofen 600 mg oral tablet 600 mg, 1, tablet, By Mouth, Every 6 hours, # 50 tablet, Refills 0, Tot. Refills 0, Maintenance, 03/05/22 22:26:00 EDT, Route to Pharmacy Electronically, [facility] #[id number], Partial fill upon patient request if the [...] 0 Refills, Soft Stop, 04/09/22 10:41:00 EDT, [facility], Partial fill upon patient request if the prescription is for a schedule II opioid drug., 158, cm, 03/19/22 15:29:00 EDT, Height, 90... Start Date: 04/09/22 Status: Ordered oxyCODONE 5 mg oral tablet 10 mg, 2, tablet, By Mouth, Every 6 hours, PRN, # 12 tablet, Refills 0, Tot. Refills 0, Maintenance, for pain, 03/05/22 22:26:00 EDT, Route to Pharmacy Electronically, [facility] #[id number], Partial fill upon patient request if the [...] 0 Refills, Maintenance, 03/05/22 22:26:00 EDT,Chew Tablet, [facility] #[id number], Partial fill upon patient request if the prescription is for a schedule II opioid drug., 158, cm, 03/05/22 20... Start Date: 03/05/22 Status: Ordered Zoloft 25 mg oral tablet 1 tablet = 25 mg, By Mouth, Daily, 1 tablet orally daily x1 week, then increase to 2 tablets a day,# 30 tablet, 0 Refills, Maintenance, 04/10/22 11:20:00 EDT, Tablet, [facility] #[id number], Partial fill upon patient request if the [...] oldest [Reference Range]: 1 Height 158 cm (04/10/22 11:14 AM) Weight 81.36 kg (04/10/22 11:14 AM) Body Mass Index [18.5-24.99 kg/m2] 32.59 kg/m2 *>HHI* (04/10/22 11:14 AM) Blood Pressure [90-138/55-84 mm Hg] 103/ 72mm Hg (04/10/22 11:14 AM) Blood pressure sites Arm, left (04/10/22 11:14 AM) Weight Obtained Via Standing scale (9/23/22 11:14 AM) Social History Social History Type Response Smoking Status Never (less than 100 in lifetime) entered on: 08/25/21 Sex Patient Care team information Personnel Name: Mariposa Adrian NP Address: Address: [address] [place] [id number]
--- OUTSIDE RECORDS SUMMARY | 2024-04-10 10:56 | XMS_ITS | Continuity of Care Document ---
Author Organization [facility] ter Address [address] [place] [address]- Care Team Providers Care Sap Basis Name Role Phone Kaylah SNOW, Mariposa Cassidy Primary Care Physician Encounter [facility] [place] [place] Date(s): 11/20/21 - 11/20/[address] [address] Discharge Disposition: A-D/C Home Attending Physician: [...] 08/26/21 11:37:00 EST, Route to Pharmacy Electronically, [facility] #[id number], Partial fill upon patient request if the prescription is for a schedule II opioi... Start Date: 08/26/21 Status: Ordered bisacodyl 10 mg rectal suppository 1 supp = 10 mg, Rectally, Daily, PRN for constipation, # 10 supp, 0 Refills, Maintenance, 08/10/21 18:57:00 EST, Suppository, [facility]/pharmacy #[id number], Partial fill upon patient request if the prescriptionis for a schedule II opioid drug., 158, cm, ... Start Date: 08/10/21 Status: Ordered clotrimazole 1% topical cream 1 application, Topically, 2 times a day, # 15 Gm, 0 Refills, Maintenance, 10/03/21 9:22:00 EDT, Cream, [facility]/pharmacy #[id number], Partial fill upon patient [...] 10/21/21 13:22:00 EDT, Route to Pharmacy Electronically, [facility] #[id number], Partial fill upon patient request if the [...] Refills, Maintenance, 08/26/21 11:31:00 EST, CR Tablet, [facility] #[id number], Partial fill upon patient request if the [...] patch, 5 Refills, Maintenance, 06/09/21 18:36:00 EST, [facility] #[id number], Partial fill upon patient request if the prescription is for a schedule II opioid drug., 1 patch Topically, 158, cm, 12/06/20 8... Start Date: 06/09/21 Status: Ordered folic acid 0.4 mg oral tablet 1 tablet = 0.4 mg, By Mouth, Daily, # 100 tablet, 3 Refills, Maintenance, 06/26/21 16:54:00 EST, Tablet, [facility] #[id number], Partial fill upon patient request if the [...] 1 Refills, Maintenance, 08/10/21 18:58:00 EST, Tablet, [facility]/pharmacy #[id number], Partial fill upon patient [...] patch, 1 Refills, Maintenance, 06/10/21 14:42:00 EST, [facility] #[id number], Partial fill upon patient request if t... Start Date: 06/10/21 Status: Ordered Zofran 4 mg oral tablet 1 tablet = 4 mg, By Mouth, Every 8 hours, PRN as needed for nausea/vomiting, # 20 tablet, 0 Refills, Maintenance, 08/05/21 17:23:00 EST, Tablet, [facility] #[id number], Partial fill upon patientrequest if the prescription is for a schedule II op... Start Date: 08/05/21 Status: Ordered Zofran 8 mg oral tablet 1 tablet = 8 mg, By Mouth, 2 times a day, # 20 tablet, 0 Refills, Acute 08/27/22 11:32:00 EST, 08/26/21 11:31:00 EST, Tablet, [facility] #[id number], Partial fill upon patient request if the [...] recent to oldest [Reference Range]: 1 Weight 88.1 kg (11/20/21 1:10 PM) Oxygen Saturation [94-100 %] 97 % (11/20/21 1:10 PM) Blood Pressure [90-138/55-84 mm Hg] 111/ 67mm Hg (11/20/21 1:10 PM) Respiratory Rate [16-30 br/min] 16 br/mi n (11/20/21 1:10 PM) Temperature [96.8-100.4 DegF] 98 DegF (11/20/21 1:10 PM) Mode of Delivery (Oxygen) Room air (11/20/21 1:10 PM) Blood pressure sites Arm, right (11/20/21 1:10 PM) Temperature Route Oral (11/20/21 1:10 PM) Weight Obtained Via Standing scale (11/20/21 1:10 PM) Social History Social History Type Response Smoking Status Never (less than 100 in lifetime) entered on: 08/25/21 Sex
--- OUTSIDE RECORDS SUMMARY | 2024-04-10 10:56 | XMS_ITS | Continuity of Care Document ---
Author Organization [facility] Address Unknown Care Team Providers Care Belly Roller Name Role Phone Kaylah SNOW, Mariposa Cassidy Primary Care Physician [phone] Encounter [facility] [place] Date(s): 08/01/21 - 08/31/21 [facility] Allergies, Adverse Reactions, Alerts Substance [...] 08/26/21 11:37:00 EST, Route to Pharmacy Electronically, [facility] #[id number], Partial fill upon patient request if the prescription is for a schedule II opioi... Start Date: 08/26/21 Status: Ordered bisacodyl 10 mg rectal suppository 1 supp = 10 mg, Rectally, Daily, PRN for constipation, # 10 supp, 0 Refills, Maintenance, 08/10/21 18:57:00 EST, Suppository, [facility]/pharmacy #[id number], Partial fill upon patient request if the [...] Refills, Maintenance, 08/26/21 11:31:00 EST, CR Tablet, [facility] #[id number], Partial fill upon patient request if the [...] patch, 5 Refills, Maintenance, 06/09/21 18:36:00 EST, [facility] #[id number], Partial fill upon patient request if the prescription is for a schedule II opioid drug., 1 patch Topically, 158, cm, 12/06/20 8... Start Date: 06/09/21 Status: Ordered folic acid 0.4 mg oral tablet 1 tablet = 0.4 mg, By Mouth, Daily, # 100 tablet, 3 Refills, Maintenance, 06/26/21 16:54:00 EST, Tablet, [facility] #[id number], Partial fill upon patient request if the prescription is for a schedule II opioid drug., 158, cm, 06/24/21 9:16:00 ES... Start Date: 06/26/21 Status: Ordered levothyroxine 150 mcg (0.15 mg) oral tablet 1 tablet = 150 mcg, By Mouth, Daily, # 60 tablet, 1 Refills, Maintenance, 02/17/21 13:28:00 EDT, Tablet, [facility] #[id number], Partial fill upon patient request if the [...] 1 Refills, Maintenance, 08/10/21 18:58:00 EST, Tablet, [facility]/pharmacy #[id number], Partial fill upon patient request if the prescription is for a schedule II opioid drug., 158, cm,... Start Date: 08/10/21 Status: Ordered triamcinolone 0.025% topical ointment 1 application, Topically, 2 times a day, for 14 days, # 15 Gm, 0 Refills, Acute 09/09/21 11:35:00 EST, 08/26/21 11:35:00 EST, Ointment, [facility] #[id number], Partial fill upon patient request if the [...] patch, 1 Refills, Maintenance, 06/10/21 14:42:00 EST, [facility] #[id number], Partial fill upon patient request if t... Start Date: 06/10/21 Status: Ordered Zofran 4 mg oral tablet 1 tablet = 4 mg, By Mouth, Every 8 hours, PRN as needed for nausea/vomiting, # 20 tablet, 0 Refills, Maintenance, 08/05/21 17:23:00 EST, Tablet, [facility] #[id number], Partial fill upon patientrequest if the prescription is for a schedule II op... Start Date: 08/05/21 Status: Ordered Zofran 8 mg oral tablet 1 tablet = 8 mg, By Mouth, 2 times a day, # 20 tablet, 0 Refills, Acute 08/27/22 11:32:00 EST, 08/26/21 11:31:00 EST, Tablet, [facility] #[id number], Partial fill upon patient request if the [...]
--- OUTSIDE RECORDS SUMMARY | 2024-04-10 10:57 | XMS_ITS | Continuity of Care Document ---
Author Organization [facility] ter Address [address] [place] [address]- Care Team Providers Care Pipe Racker Name Role Phone Mason Rinaldi MD Primary Care Physician Encounter [facility] [place] Date(s): 05/27/20 - 05/27/[address] [address] Discharge Disposition: A-D/C Home Attending Physician: Deidra Luong MD Admitting Physician: eDidra Luong MD Referring Physician: Deidra Luong MD Allergies, Adverse Reactions, Alerts Substance Reaction Severity Status codeine red itchy Active shellfish throat swells Active Adhesive Bandage 1 Active aspirin red [...] 0 Refills, Maintenance, 05/09/20 7:54:00 EDT, [facility], 158, cm, 05/02/20 14:32:00 EDT, Height, 88.2, kg, 01/09/19 16:14:00 EDT, Dry Weight Start Date: 05/09/20 Status: Ordered metFORMIN 500 mg oral tablet, extended release 3 tablet = 1,500 mg, By Mouth, Daily, with evening meal, # 90 tablet, 11 Refills, Maintenance, 01/31/20 11:39:00 EDT, [facility] #[id number], 158, cm, 01/29/20 13:44:00 EDT, Height, 88.2, [...] 6 Refills, Maintenance, 02/05/20 15:13:00 EDT, Tablet, [facility] #[id number], 158, cm, 01/29/20 13:44:00 EDT, Height, 88.2, [...] oldest [Reference Range]: 1 Weight 87.5 kg (05/27/20 2:26 AM) Oxygen Saturation [94-100 %] 98 % (05/27/20 2:28 AM) Pulse Rate [55-90 bpm] 89 bpm (05/27/20 2:28 AM) Blood Pressure [90-138/55-84 mm Hg] 132/ 81mm Hg (05/27/20 2:28 AM) Respiratory Rate [16-30 br/min] 18 br/mi n (05/27/20 2:28 AM) Temperature [96.8-100.4 DegF] 98.9 DegF (05/27/20 2:28 AM) Blood pressure sites Arm, right (05/27/20 2:28 AM) Temperature Route Oral (05/27/20 2:28 AM) Dry Weight 87.5 kg (05/27/20 2:26 AM) Weight Obtained Via Standing scale (05/27/20 2:26 AM) Social History Social History Type Response Smoking Status Never smoker; Tobacc o user in household: No entered on: 12/24/15 Sex
--- OUTSIDE RECORDS SUMMARY | 2024-04-10 10:57 | XMS_ITS | Continuity of Care Document ---
Author Organization [facility] Address [address] [place] [address]- Care Team Providers Care Motor Checker Name Role Phone Mason Rinaldi MD Primary Care Physician Encounter [facility] [place] Date(s): 09/22/19 - 01/12/20 [facility] [address] [place] [address]- [facility] Attending Physician: Dasha Wright MD Admitting Physician: [...] 2 pack/packet, 3 Refills, Maintenance, 01/12/20 17:03:00 EDT,[facility] #[id number], 1 tablet By Mouth Piedad... Start Date: 01/12/20 Status: Ordered Apri 0.15 mg-0.03 mg oral tablet 1 tablet, By Mouth, Daily, 1 active tablet daily on day 1 of period, take 21 days of active tablets,skip placebos start the next pack, # 1 pack/packet, 3 Refills, Maintenance, 08/01/19 12:52:00 EST,[facility] [address] [place] [address], 1 tablet By Mouth Daily,... Start Date: [...] 0 Refills, Maintenance, 12/27/19 10:14:00 EDT, Tablet, [email or web address] #[id number], labs needed prior to next refill, 158, cm, 09/22/19 1... Start Date: 12/27/19 Status: Ordered Menopur 75 intl units subcutaneous [...]
--- OUTSIDE RECORDS SUMMARY | 2024-04-10 10:57 | XMS_ITS | Continuity of Care Document ---
Author Organization [facility] ter Address [address] [place] [address]- Care Team Providers Care Metal Off Bearer Name Role Phone Mason Rinaldi MD Primary Care Physician [phone] [place] [facility] [place] 04/10/20 - 04/10/[address] [address]- [facility] Discharge Disposition: A-D/C Home Attending Physician: La [...] 2 pack/packet, 3 Refills, Maintenance, 01/12/20 17:03:00 EDT,[facility] #[id number], 1 tablet By Mouth Piedad... Start Date: 01/12/20 Status: Ordered cabergoline 0.5 mg oral tablet 1 tablet = 0.5 mg, By Mouth, Daily, Begin 2 hours before hCG injection, # 7 tablet, 0 Refills, Maintenance, 04/08/20 14:58:00 EDT, [facility] #[id number], 158, cm, 03/21/20 8:43:00 EDT, Height, 88.2, [...] 0 Refills, Maintenance, 12/27/19 10:14:00 EDT, Tablet, [facility] #[id number], labs needed prior to next refill, 158, cm, 09/22/19 1... Start Date: 12/27/19 Status: Ordered levothyroxine 175 mcg (0.175 mg) oral tablet 1 tablet = 175 mcg, By Mouth, Daily, # 30 tablet, 3 Refills, Maintenance, 02/01/20 13:20:00 EDT, Tablet, [facility] #[id number], 158, cm, 01/29/20 13:44:00 EDT, Height, 88.2, [...] tablet, 11 Refills, Maintenance, 01/31/20 11:39:00 EDT, [facility] #[id number], 158, cm, 01/29/20 13:44:00 EDT, Height, 88.2, [...] 04/09/20 8:51:00 EDT, Route to Pharmacy Electronically, [facility] #[id number], Partial fill upon patient request, 158, cm, [...] 6 Refills, Maintenance, 02/05/20 15:13:00 EDT, Tablet, [facility] #[id number], 158, cm, 01/29/20 13:44:00 EDT, Height, 88.2, [...] 04/09/20 8:51:00 EDT, Route to Pharmacy Electronically, [facility] #[id number]... Start Date: 04/09/20 Status: Ordered Problem [...]
--- OUTSIDE RECORDS SUMMARY | 2024-04-10 10:57 | XMS_ITS | Continuity of Care Document ---
Author Organization [facility] Address [address] [place] [address], [address] [place] [address]- Care Team Providers Care Hay Stacker Name Role Phone Kaylah SNOW, Mariposa Cassidy Primary Care Physician [phone] En[place] [facility] [place] Date(s): 09/22/21 - 10/22/21 [facility] [address] [place] [address], [address] [place] [address]- Allergies, Adverse Reactions, Alerts Substance Reaction Severity [...] 08/26/21 11:37:00 EST, Route to Pharmacy Electronically, [facility] #[id number], Partial fill upon patient request if the prescription is for a schedule II opioi... Start Date: 08/26/21 Status: Ordered bisacodyl 10 mg rectal suppository 1 supp = 10 mg, Rectally, Daily, PRN for constipation, # 10 supp, 0 Refills, Maintenance, 08/10/21 18:57:00 EST, Suppository, [facility]/pharmacy #[id number], Partial fill upon patient request if the prescriptionis for a schedule II opioid drug., 158, cm, ... Start Date: 08/10/21 Status: Ordered clotrimazole 1% topical cream 1 application, Topically, 2 times a day, # 15 Gm, 0 Refills, Maintenance, 10/03/21 9:22:00 EDT, Cream, [facility]/pharmacy #[id number], Partial fill upon patient request [...] 10/21/21 13:22:00 EDT, Route to Pharmacy Electronically, [facility] #[id number], Partial fill upon patient request if the [...] Refills, Maintenance, 08/26/21 11:31:00 EST, CR Tablet, [facility] #[id number], Partial fill upon patient request if the [...] patch, 5 Refills, Maintenance, 06/09/21 18:36:00 EST, [facility] #[id number], Partial fill upon patient request if the prescription is for a schedule II opioid drug., 1 patch Topically, 158, cm, 12/06/20 8... Start Date: 06/09/21 Status: Ordered folic acid 0.4 mg oral tablet 1 tablet = 0.4 mg, By Mouth, Daily, # 100 tablet, 3 Refills, Maintenance, 06/26/21 16:54:00 EST, Tablet, [facility] #[id number], Partial fill upon patient request if the [...] 1 Refills, Maintenance, 08/10/21 18:58:00 EST, Tablet, [facility]/pharmacy #[id number], Partial fill upon patient request [...] patch, 1 Refills, Maintenance, 06/10/21 14:42:00 EST, [facility] #[id number], Partial fill upon patient request if t... Start Date: 06/10/21 Status: Ordered Zofran 4 mg oral tablet 1 tablet = 4 mg, By Mouth, Every 8 hours, PRN as needed for nausea/vomiting, # 20 tablet, 0 Refills, Maintenance, 08/05/21 17:23:00 EST, Tablet, [facility] #[id number], Partial fill upon patientrequest if the prescription is for a schedule II op... Start Date: 08/05/21 Status: Ordered Zofran 8 mg oral tablet 1 tablet = 8 mg, By Mouth, 2 times a day, # 20 tablet, 0 Refills, Acute 08/27/22 11:32:00 EST, 08/26/21 11:31:00 EST, Tablet, [facility] #[id number], Partial fill upon patient request if the [...]
--- OUTSIDE RECORDS SUMMARY | 2024-04-10 10:57 | XMS_ITS | Continuity of Care Document ---
Author Organization [facility] [employer] [employer] [facility] Address [address] [place] [address], [address] [place] [address]- Care Team Providers Care County Library Director Name Role Phone Kaylah SNOW, Mariposa Cassidy Primary Care Physician [phone] [id number] 10[facility]31[facility] [address] [facility], [address] [place] [address]- Allergies, Adverse Reactions, Alerts Substance Reaction Severity [...] 08/26/21 11:37:00 EST, Route to Pharmacy Electronically, [facility] #[id number], Partial fill upon patient request if the [...] 10/21/21 13:22:00 EDT, Route to Pharmacy Electronically, [facility] #[id number], Partial fill upon patient request if the [...] Refills, Maintenance, 08/26/21 11:31:00 EST, CR Tablet, [facility] #[id number], Partial fill upon patient request if the [...] patch, 5 Refills, Maintenance, 06/09/21 18:36:00 EST, [facility] #[id number], Partial fill upon patient request if the prescription is for a schedule II opioid drug., 1 patch Topically, 158, cm, 12/06/20 8... Start Date: 06/09/21 Status: Ordered folic acid 0.4 mg oral tablet 1 tablet = 0.4 mg, By Mouth, Daily, # 100 tablet, 3 Refills, Maintenance, 06/26/21 16:54:00 EST, Tablet, [facility] #[id number], Partial fill upon patient request if the [...] 5Refills, Maintenance, 07/09/21 10:58:00 EST, [facility], Partial fill upon patient request if the prescription is for a schedule II opioid... Start Date: 07/09/21 Status: Ordered Reglan 5 mg oral tablet 1 tablet = 5 mg, By Mouth, Every 6 hours, PRN Nausea & Vomiting, # 90 tablet, 1 Refills, Maintenance, 08/10/21 18:58:00 EST, Tablet, [facility]/pharmacy #[id number], Partial fill upon patient request if the [...] patch, 1 Refills, Maintenance, 06/10/21 14:42:00 EST, [facility] #[id number], Partial fill upon patient request if t... Start Date: 06/10/21 Status: Ordered Zofran 4 mg oral tablet 1 tablet = 4 mg, By Mouth, Every 8 hours, PRN as needed for nausea/vomiting, # 20 tablet, 0 Refills, Maintenance, 08/05/21 17:23:00 EST, Tablet, [facility] #[id number], Partial fill upon patientrequest if the prescription is for a schedule II op... Start Date: 08/05/21 Status: Ordered Zofran 8 mg oral tablet 1 tablet = 8 mg, By Mouth, 2 times a day, # 20 tablet, 0 Refills, Acute 08/27/22 11:32:00 EST, 08/26/21 11:31:00 EST, Tablet, [facility] #[id number], Partial fill upon patient request if the [...]
--- OUTSIDE RECORDS SUMMARY | 2024-04-10 10:57 | XMS_ITS | Continuity of Care Document ---
Author Organization [facility] [employer] [facility] [employer] Address [address] [place] [address], [address] [place] [address]- Care Team Providers Care Journeyman Level Acoustic Analyst Name Role Phone Kaylah SNOW, Mariposa Cassidy Primary Care Physician [phone] [id number] 08/16/23 - 09/15/23 [facility] [address] [facility], [address] [place] [address]- Allergies, Adverse Reactions, Alerts Substance Reaction Severity [...] 0 Refills, Maintenance, 03/05/22 22:26:00 EDT, Capsule, [facility] #[id number], Partial fill upon patient request if the prescription is for a schedule II opioid dr... Start Date: 03/05/22 Status: Ordered aspirin 81 mg oral tablet, chewable 162 mg, 2, tablet, Chew, Daily, # 60 tablet, Refills 8, Tot. Refills 8, Maintenance, 08/26/21 11:37:00 EST, Route to Pharmacy Electronically, [facility] #[id number], Partial fill upon patient request if the prescription is for a schedule II opioi... Start Date: 08/26/21 Status: Ordered Colace sodium 100 mg oral capsule 100 mg, 1, capsule, By Mouth, 2 times a day, PRN, # 20 capsule, Refills 0, Tot. Refills 0, Maintenance, for constipation, 03/05/22 22:26:00 EDT, Route to Pharmacy Electronically, [facility][id number], Partial fill upon patient request if the pr... Start Date: 03/05/22 Status: Ordered ibuprofen 600 mg oral tablet 600 mg, 1, tablet, By Mouth, Every 6 hours, # 50 tablet, Refills 0, Tot. Refills 0, Maintenance, 03/05/22 22:26:00 EDT, Route to Pharmacy Electronically, [facility] #[id number], Partial fill upon patient request if the prescription is for a sched... Start Date: 03/05/22 Status: Ordered levothyroxine 150 mcg (0.15 mg) oral tablet 1 tablet = 150 mcg, By Mouth, Daily, # 30 tablet, 11 Refills, Maintenance, 08/21/22 11:04:00 EST, Tablet, [facility] #[id number], Partial fill upon patient request if the prescription is for a schedule II opioid drug., 158, cm, 04/10/22 11:14:00... Start Date: 08/21/22 Status: Ordered Mirena 52 mg intrauterine device 1 each = 52 mg, Intrauterine, Once, # 1 each, 0 Refills, Soft Stop, 04/09/22 10:41:00 EDT, [facility], Partial fill upon patient request if the prescription is for a schedule II opioid drug., 158, cm, 03/19/22 15:29:00 EDT, Height, 90... Start Date: 04/09/22 Status: Ordered oxyCODONE 5 mg oral tablet 10 mg, 2, tablet, By Mouth, Every 6 hours, PRN, # 12 tablet, Refills 0, Tot. Refills 0, Maintenance, for pain, 03/05/22 22:26:00 EDT, Route to Pharmacy Electronically, [facility] #[id number], Partial fill upon patient request if the [...] 0 Refills, Maintenance, 03/05/22 22:26:00 EDT,Chew Tablet, [facility] #[id number], Partial fill upon patient request if the prescription is for a schedule II opioid drug., 158, cm, 03/05/22 20... Start Date: 03/05/22 Status: Ordered Zoloft 25 mg oral tablet 1 tablet = 25 mg, By Mouth, Daily, 1 tablet orally daily x1 week, then increase to 2 tablets a day,# 30 tablet, 0 Refills, Maintenance, 04/10/22 11:20:00 EDT, Tablet, [facility] #[id number], Partial fill upon patient request if the [...] Team Personnel Name: Vidya Lobo RN Position: LEEANNE THOMAS RN Member Role: Primary Care Nurse Name: Joy Herron RN Position: LEEANNE RN Member Role: Primary Care Nurse Name: Mariposa Adrian NP Position: Reference Physician Member Role: PCP Address: Address: [address] [place] [address]- Care Team Related Persons Name: POLO MANRIQUEZ Address: [address] [place] [address] Name: MANRIQUEZ MAGUI Address: [address] Address: [address] [place] [address] Name: ALCIDES WARNER Address: home [address] [place] [address]
--- OUTSIDE RECORDS SUMMARY | 2024-04-10 10:57 | XMS_ITS | Continuity of Care Document ---
Author Organization [facility] [place] [employer] [employer] Address [address] [place] [address], [address] [place] [address]- Care Team Providers Care Hanger Name Role Phone Kaylah SNOW, Mariposa Cassidy Primary Care Physician [place] [facility] [place] Date(s[place] 10/03/21 - 10/10/21 [facility] [employer] [facility] [address], [address] Floor [place], [place] [address] Attending Physician: Not on Staff, Attending MD Referring Physician: Not on Staff, Referring [...] 08/26/21 11:37:00 EST, Route to Pharmacy Electronically, [facility] #[id number], Partial fill upon patient request if the prescription is for a schedule II opioi... Start Date: 08/26/21 Status: Ordered bisacodyl 10 mg rectal suppository 1 supp = 10 mg, Rectally, Daily, PRN for constipation, # 10 supp, 0 Refills, Maintenance, 08/10/21 18:57:00 EST, Suppository, [facility]/pharmacy #[id number], Partial fill upon patient request if the prescriptionis for a schedule II opioid drug., 158, cm, ... Start Date: 08/10/21 Status: Ordered clotrimazole 1% topical cream 1 application, Topically, 2 times a day, # 15 Gm, 0 Refills, Maintenance, 10/03/21 9:22:00 EDT, Cream, [facility]/pharmacy #[id number], Partial fill upon patient request if the prescription is for a schedule II opioid drug., 1 application Topically 2 times a day,... Start Date: 10/03/21 Status: Ordered clotrimazole 1% vaginal cream with applicator 1 application, Vaginally, Daily at bedtime, for 7 days, # 45 Gm, 0 Refills, Acute 10/13/21 13:30:00EDT, 10/06/21 13:30:00 EDT, Cream, [facility] #[id number], Partial fill upon patient request if the [...] Refills, Maintenance, 08/26/21 11:31:00 EST, CR Tablet, [facility] #[id number], Partial fill upon patient request if the [...] patch, 5 Refills, Maintenance, 06/09/21 18:36:00 EST, [facility] #[id number], Partial fill upon patient request if the prescription is for a schedule II opioid drug., 1 patch Topically, 158gerry, 12/06/20 8... Start Date: 06/09/21 Status: Ordered folic acid 0.4 mg oral tablet 1 tablet = 0.4 mg, By Mouth, Daily, # 100 tablet, 3 Refills, Maintenance, 06/26/21 16:54:00 EST, Tablet, [facility] #[id number], Partial fill upon patient request if the prescription is for a schedule II opioid drug., 158, gerry, 06/24/21 9:16:00 ES... Start Date: 06/26/21 Status: Ordered levothyroxine 150 mcg (0.15 mg) oral tablet 1 tablet = 150 mcg, By Mouth, Daily, # 60 tablet, 1 Refills, Maintenance, 02/17/21 13:28:00 EDT, Tablet, [facility] #[id number], Partial fill upon patient request if the [...] Refills, Maintenance, 08/10/21 18:58:00 EST, Tablet, [facility]/pharmacy #[id number], Partial fill upon patient request if [...] patch, 1 Refills, Maintenance, 06/10/21 14:42:00 EST, [facility] #[id number], Partial fill upon patient request if t... Start Date: 06/10/21 Status: Ordered Zofran 4 mg oral tablet 1 tablet = 4 mg, By Mouth, Every 8 hours, PRN as needed for nausea/vomiting, # 20 tablet, 0 Refills, Maintenance, 08/05/21 17:23:00 EST, Tablet, [facility] #[id number], Partial fill upon patientrequest if the prescription is for a schedule II op... Start Date: 08/05/21 Status: Ordered Zofran 8 mg oral tablet 1 tablet = 8 mg, By Mouth, 2 times a day, # 20 tablet, 0 Refills, Acute 08/27/22 11:32:00 EST, 08/26/21 11:31:00 EST, Tablet, [facility] #[id number], Partial fill upon patient request if the [...] oldest [Reference Range]: 1 Height 158 cm (10/03/21 9:05 AM) Weight 88.8 kg (10/03/21 9:05 AM) Body Mass Index [18.5-24.99] 35.57 *>HHI* (10/03/21 9:05 AM) Blood Pressure [90-138/55-84 mm Hg] 123/ 54mm Hg (10/03/21 9:05 AM) Blood pressure sites Arm, right (10/03/21 9:05 AM) Dry Weight 88.8 kg (10/03/21 9:05 AM) Weight Obtained Via Standing scale (10/03/21 9:05 AM) Dry Weight Obtained Via Standing scale (10/03/21 9:05 AM) Social History Social History Type Response Smoking Status Never (less than 100 in lifetime) entered on: 08/25/21 Sex
--- OUTSIDE RECORDS SUMMARY | 2024-04-10 10:57 | XMS_ITS | Continuity of Care Document ---
Author Organization [facility] Address Unknown Care Team Providers Care Compactor Driver Name Role Phone Mariposa Adrian NP Primary Care Physician [phone] [place] [facility] [place] 07[place] [facility] Attending Physician: Lee Ann Stephens MD Referring Physician: Mariposa Adrian NP Allergies, [...] patch, 5 Refills, Maintenance, 06/09/21 18:36:00 EST, [facility] #[id number], Partial fill upon patient request if the prescription is for a schedule II opioid drug., 1 patch Topically, 158, cm, 12/06/20 8... Start Date: 06/09/21 Status: Ordered folic acid 0.4 mg oral tablet 1 tablet = 0.4 mg, By Mouth, Daily, # 100 tablet, 3 Refills, Maintenance, 06/26/21 16:54:00 EST, Tablet, [facility] #[id number], Partial fill upon patient request if the prescription is for a schedule II opioid drug., 158, cm, 06/24/21 9:16:00 ES... Start Date: 06/26/21 Status: Ordered levothyroxine 150 mcg (0.15 mg) oral tablet 1 tablet = 150 mcg, By Mouth, Daily, # 60 tablet, 1 Refills, Maintenance, 02/17/21 13:28:00 EDT, Tablet, [facility] #[id number], Partial fill upon patient request if the prescription is for a schedule II opioid drug., 158, cm, 12/06/20 8:28:00 ED... Start Date: 02/17/21 Status: Ordered metFORMIN 500 mg oral tablet, extended release 3 tablet = 1,500 mg, By Mouth, Daily, with evening meal, # 90 tablet, 11 Refills, Maintenance, 01/31/20 11:39:00 EDT, [facility] #[id number], 158, cm, 01/29/20 13:44:00 EDT, Height, 88.2, [...] 07/17/21 16:04:00 EST, Route to Pharmacy Electronically, [facility] #[id number], Partial fill upon patient request, 158, cm, [...] 05/26/21 11:44:00 EST, Route to Pharmacy Electronically, [facility] #[id number], Partial fill upon patientrequest if the prescription is for a schedule II op... Start Date: 05/26/21 Stop Date: 06/05/21 Status: Ordered Provera 10 mg oral tablet 10 mg, 1, tablet, By Mouth, Daily, # 7 tablet, Refills 0, Tot. Refills 0, Maintenance, 02/17/21 13:23:00 EDT, Route to Pharmacy Electronically, [facility] #[id number], Partial fill upon patient request if the prescription is for a schedule II opi... Start Date: 02/17/21 Stop Date: 02/24/21 Status: Ordered Valium 5 mg oral tablet 5 mg, 1, tablet, By Mouth, inbound call center representative to Procedure, May need to repeat!, # 2 tablet, Refills 0, Tot. Refills 0, Maintenance, 06/25/21 10:29:00 EST, Route to Pharmacy Electronically, [facility]#[id number], Partial fill upon patient request if the pr... Start Date: 06/25/21 Status: Ordered Vivelle-Dot 0.1 mg/24 hours twice weekly transdermal film, extended release See Instructions, Place 1 patch on day 1-4 then 2 patches on day 5-10 and then 4 patches on day 11-14 changing patches QOD., # 8 patch, 1 Refills, Maintenance, 06/10/21 14:42:00 EST, [facility] #[id number], Partial fill upon patient request if t... [...]
--- OUTSIDE RECORDS SUMMARY | 2024-04-10 10:57 | XMS_ITS | Continuity of Care Document ---
Author Organization [facility] Address Unknown Care Team Providers Care Nuclear Plant Equipment Operator Name Role Phone Kaylah SNOW, Mariposa Cassidy Primary Care Physician [phone] [place] [facility] [place] 09[place]26[place] [facility] Allergies, Adverse Reactions, Alerts [...] 08/26/21 11:37:00 EST, Route to Pharmacy Electronically, [facility] #[id number], Partial fill upon patient request if the prescription is for a schedule II opioi... Start Date: 08/26/21 Status: Ordered bisacodyl 10 mg rectal suppository 1 supp = 10 mg, Rectally, Daily, PRN for constipation, # 10 supp, 0 Refills, Maintenance, 08/10/21 18:57:00 EST, Suppository, [facility]/pharmacy #[id number], Partial fill upon patient request if [...] Refills, Maintenance, 08/26/21 11:31:00 EST, CR Tablet, [facility] #[id number], Partial fill upon patient request if the [...] patch, 5 Refills, Maintenance, 06/09/21 18:36:00 EST, [facility] #[id number], Partial fill upon patient request if the prescription is for a schedule II opioid drug., 1 patch Topically, 158, cm, 12/06/20 8... Start Date: 06/09/21 Status: Ordered folic acid 0.4 mg oral tablet 1 tablet = 0.4 mg, By Mouth, Daily, # 100 tablet, 3 Refills, Maintenance, 06/26/21 16:54:00 EST, Tablet, [facility] #[id number], Partial fill upon patient request if the prescription is for a schedule II opioid drug., 158, cm, 06/24/21 9:16:00 ES... Start Date: 06/26/21 Status: Ordered levothyroxine 150 mcg (0.15 mg) oral tablet 1 tablet = 150 mcg, By Mouth, Daily, # 60 tablet, 1 Refills, Maintenance, 02/17/21 13:28:00 EDT, Tablet, [facility] #[id number], Partial fill upon patient request if the prescription is for a schedule II opioid drug., 158, cm, 12/06/20 8:28:00 ED... Start Date: 02/17/21 Status: Ordered methylPREDNISolone 16 mg oral tablet = 16 mg, By Mouth, Daily, Take for 4 days when instructed with the last dose being the day of frozen embryo transfer, # 4 tablet, 0 Refills, Maintenance, 06/09/21 15:38:00 EST, [facility], Partial fill upon patient request if [...] 6 each, 5Refills, Maintenance, 07/09/21 10:58:00 EST, [facility], Partial fill upon patient request if the prescription is for a schedule II opioid... Start Date: 07/09/21 Status: Ordered Reglan 5 mg oral tablet 1 tablet = 5 mg, By Mouth, Every 6 hours, PRN Nausea & Vomiting, # 90 tablet, 1 Refills, Maintenance, 08/10/21 18:58:00 EST, Tablet, [facility]/pharmacy #[id number], Partial fill upon patient request if the [...] patch, 1 Refills, Maintenance, 06/10/21 14:42:00 EST, [facility] #[id number], Partial fill upon patient request if t... Start Date: 06/10/21 Status: Ordered Zofran 4 mg oral tablet 1 tablet = 4 mg, By Mouth, Every 8 hours, PRN as needed for nausea/vomiting, # 20 tablet, 0 Refills, Maintenance, 08/05/21 17:23:00 EST, Tablet, [facility] #[id number], Partial fill upon patientrequest if the prescription is for a schedule II op... Start Date: 08/05/21 Status: Ordered Zofran 8 mg oral tablet 1 tablet = 8 mg, By Mouth, 2 times a day, # 20 tablet, 0 Refills, Acute 08/27/22 11:32:00 EST, 08/26/21 11:31:00 EST, Tablet, [facility] #[id number], Partial fill upon patient request if the [...]
--- OUTSIDE RECORDS SUMMARY | 2024-04-10 10:57 | XMS_ITS | Continuity of Care Document ---
Author Organization [facility] [employer] Address [address] [place] [address], [address] [place] [address]- Care Team Providers Care Organizational Development Specialist Name Role Phone Kaylah SNOW, Mariposa Cassidy Primary Care Physician [id number] Date[facility]21 - 11/05/21 [facility] [address] [facility], [address] [place] [address]- Allergies, Adverse Reactions, Alerts Substance Reaction Severity [...] 08/26/21 11:37:00 EST, Route to Pharmacy Electronically, [facility] #[id number], Partial fill upon patient request if the prescription is for a schedule II opioi... Start Date: 08/26/21 Status: Ordered bisacodyl 10 mg rectal suppository 1 supp = 10 mg, Rectally, Daily, PRN for constipation, # 10 supp, 0 Refills, Maintenance, 08/10/21 18:57:00 EST, Suppository, [facility]/pharmacy #[id number], Partial fill upon patient request if the prescriptionis for a schedule II opioid drug., 158, cm, ... Start Date: 08/10/21 Status: Ordered clotrimazole 1% topical cream 1 application, Topically, 2 times a day, # 15 Gm, 0 Refills, Maintenance, 10/03/21 9:22:00 EDT, Cream, [facility]/pharmacy #[id number], Partial fill upon patient request [...] 10/21/21 13:22:00 EDT, Route to Pharmacy Electronically, [facility] #[id number], Partial fill upon patient request if the [...] Refills, Maintenance, 08/26/21 11:31:00 EST, CR Tablet, [facility] #[id number], Partial fill upon patient request if the [...] patch, 5 Refills, Maintenance, 06/09/21 18:36:00 EST, [facility] #[id number], Partial fill upon patient request if the prescription is for a schedule II opioid drug., 1 patch Topically, 158, cm, 12/06/20 8... Start Date: 06/09/21 Status: Ordered folic acid 0.4 mg oral tablet 1 tablet = 0.4 mg, By Mouth, Daily, # 100 tablet, 3 Refills, Maintenance, 06/26/21 16:54:00 EST, Tablet, [facility] #[id number], Partial fill upon patient request if the [...] Refills, Maintenance, 08/10/21 18:58:00 EST, Tablet, [facility]/pharmacy #[id number], Partial fill upon patient request if the [...] patch, 1 Refills, Maintenance, 06/10/21 14:42:00 EST, [facility] #[id number], Partial fill upon patient request if t... Start Date: 06/10/21 Status: Ordered Zofran 4 mg oral tablet 1 tablet = 4 mg, By Mouth, Every 8 hours, PRN as needed for nausea/vomiting, # 20 tablet, 0 Refills, Maintenance, 08/05/21 17:23:00 EST, Tablet, [facility] #[id number], Partial fill upon patientrequest if the prescription is for a schedule II op... Start Date: 08/05/21 Status: Ordered Zofran 8 mg oral tablet 1 tablet = 8 mg, By Mouth, 2 times a day, # 20 tablet, 0 Refills, Acute 08/27/22 11:32:00 EST, 08/26/21 11:31:00 EST, Tablet, [facility] #[id number], Partial fill upon patient request if the [...]
--- OUTSIDE RECORDS SUMMARY | 2024-04-10 10:57 | XMS_ITS | Continuity of Care Document ---
Author Organization [facility] ter Address [address] [place] [address]- Care Team Providers Care Refinery Operator Vapor Recovery Unit Name Role Phone Kaylah SNOW, Mariposa Cassidy Primary Care Physician [place] [facility] [place] - 05/26/[address] [address] Discharge Disposition: A-D/C Home Attending Physician: Lee [...] tablet, 11 Refills, Maintenance, 07/05/20 10:24:00 EST, [facility] #[id number], Partial fill upon patient request if the prescription is for a schedule II opioid drug., 1 tablet By Mouth Daily, 158, cm, 05/02/20 14... Start Date: 07/05/20 Status: Ordered levothyroxine 150 mcg (0.15 mg) oral tablet 1 tablet = 150 mcg, By Mouth, Daily, # 60 tablet, 1 Refills, Maintenance, 02/17/21 13:28:00 EDT, Tablet, [facility] #[id number], Partial fill upon patient request if the prescription is for a schedule II opioid drug., 158, cm, 12/06/20 8:28:00 ED... Start Date: 02/17/21 Status: Ordered metFORMIN 500 mg oral tablet, extended release 3 tablet = 1,500 mg, By Mouth, Daily, with evening meal, # 90 tablet, 11 Refills, Maintenance, 01/31/20 11:39:00 EDT, [facility] #[id number], 158, cm, 01/29/20 13:44:00 EDT, Height, 88.2, kg, 01/09/19 16:14:00 EDT, Dry Weight Start Date: 01/31/20 Stop Date: 01/25/21 Status: Ordered methylPREDNISolone 16 mg oral tablet = 16 mg, By Mouth, Daily, Take for 4 days when instructed with the last dose being the day of frozen embryo transfer, # 4 tablet, 0 Refills, Maintenance, 05/13/21 8:56:00 EDT, [facility] #[id number], Partial fill upon patient request if the [...] Refills, Maintenance, 03/18/21 9:22:00 EDT, [facility], Partial fill upon patient request if the prescription is for a schedule II opioid drug., 158, cm, 12/06/... Start Date: 03/18/21 Status: Ordered progesterone 50 mg/mL intramuscular solution See Instructions, 75mg/ml 1.5 ml (sesame oil) Intramuscular Daily. Start when instructed, # 5 each,5 Refills, Maintenance, 03/18/21 9:22:00 EDT, [facility], Partial fill upon patient request if the prescription is for a schedule II opioid... Start Date: 03/18/21 Status: Ordered Provera 10 mg oral tablet 10 mg, 1, tablet, By Mouth, Daily, # 10 tablet, Refills 0, Tot. Refills 0, Maintenance, 05/26/21 11:44:00 EST, Route to Pharmacy Electronically, [facility] #[id number], Partial fill upon patientrequest if the prescription is for a schedule II op... Start Date: 05/26/21 Stop Date: 06/05/21 Status: Ordered Provera 10 mg oral tablet 10 mg, 1, tablet, By Mouth, Daily, # 7 tablet, Refills 0, Tot. Refills 0, Maintenance, 02/17/21 13:23:00 EDT, Route to Pharmacy Electronically, [facility] #[id number], Partial fill upon patient request if the [...]
--- OUTSIDE RECORDS SUMMARY | 2024-04-10 10:57 | XMS_ITS | Continuity of Care Document ---
Author Organization [facility] ter Address [address] [place] [address]- Care Team Providers Care Environmental Assistant Name Role Phone Kaylah SNOW, Mariposa Cassidy Primary Care Physician [place] [facility] [place] 09/30/23 - 11/12/[address] [address] Attending Physician: Shmuel REYES [OB], Evangelina Miguel Admitting Physician: Shmuel REYES [OB]Evangelina Referring Physician: Shmuel REYES [OB], Evangelina Miguel [...] 2 Refills, Maintenance, 09/17/23 15:00:00 EST, Tablet, [facility] #[id number], Partial fill upon patient request if the [...] Vidya Lobo RN Position: [facility] RN Member Role: Primary Care Nurse Name: Joy Herron RN Position: [facility] RN Member Role: Primary Care Nurse Name: Mariposa Adrian NP Position: Reference Physician Member Role: PCP Address: Address: [address] [place] [address]- Care Team Related Persons Name: POLO MANRQIUEZ Address: home [address] [place] [address] Name: MAGUI MANRIQUEZ Address: [address] Address: home [address] [place] [address] [place] Name: ALCIDES WARNER Address: home [address] [address]
--- OUTSIDE RECORDS SUMMARY | 2024-04-10 10:57 | XMS_ITS | Continuity of Care Document ---
Author Organization [facility] Address Unknown Care Team Providers Care Rail Signal Mechanic Name Role Phone Kaylah SNOW, Mariposa Cassidy Primary Care Physician [place] [facility] [place](s): 03/07/21 - 04/06/21 [facility] Repro[facility] Allergies, Adverse Reactions, [...] tablet, 11 Refills, Maintenance, 07/05/20 10:24:00 EST, [facility] #[id number], Partial fill upon patient request if the prescription is for a schedule II opioid drug., 1 tablet By Mouth Daily, 158, cm, 05/02/20 14... Start Date: 07/05/20 Status: Ordered levothyroxine 150 mcg (0.15 mg) oral tablet 1 tablet = 150 mcg, By Mouth, Daily, # 60 tablet, 1 Refills, Maintenance, 02/17/21 13:28:00 EDT, Tablet, [facility] #[id number], Partial fill upon patient request if the prescription is for a schedule II opioid drug., 158, cm, 12/06/20 8:28:00 ED... Start Date: 02/17/21 Status: Ordered metFORMIN 500 mg oral tablet, extended release 3 tablet = 1,500 mg, By Mouth, Daily, with evening meal, # 90 tablet, 11 Refills, Maintenance, 01/31/20 11:39:00 EDT, [facility] #[id number], 158, cm, 01/29/20 13:44:00 EDT, Height, 88.2, [...] Refills, Maintenance, 03/18/21 9:22:00 EDT, [facility], Partial fill upon patient request if the prescription is for a schedule II opioid drug., 158, cm, 12/06/... Start Date: 03/18/21 Status: Ordered progesterone 50 mg/mL intramuscular solution See Instructions, 75mg/ml 1.5 ml (sesame oil) Intramuscular Daily. Start when instructed, # 5 each,5 Refills, Maintenance, 03/18/21 9:22:00 EDT, [facility], Partial fill upon patient request if the prescription is for a schedule II opioid... Start Date: 03/18/21 Status: Ordered Provera 10 mg oral tablet 10 mg, 1, tablet, By Mouth, Daily, # 7 tablet, Refills 0, Tot. Refills 0, Maintenance, 02/17/21 13:23:00 EDT, Route to Pharmacy Electronically, [facility] #[id number], Partial fill upon patient request if the [...]
--- OUTSIDE RECORDS SUMMARY | 2024-04-10 10:57 | XMS_ITS | Continuity of Care Document ---
Author Organization [facility] [employer] [facility] Address [address] [place] [address], [address] [place] [address]- Care Team Providers Care Product Picker Name Role Phone Kaylha SNOW, Mariposa Cassidy Primary Care Physician [place] [facility] [place] Date(s): 09/22/21 - 10/22/21 [facility] [address] [place] [address], [address] [place] [address]- Allergies, Adverse Reactions, Alerts Substance Reaction Severity [...] 08/26/21 11:37:00 EST, Route to Pharmacy Electronically, [facility] #[id number], Partial fill upon patient request if the [...] 0 Refills, Maintenance, 10/03/21 9:22:00 EDT, Cream, [facility]/pharmacy #[id number], Partial fill [...] 10/21/21 13:22:00 EDT, Route to Pharmacy Electronically, [facility] #[id number], Partial fill upon patient request if the [...] Refills, Maintenance, 08/26/21 11:31:00 EST, CR Tablet, [facility] #[id number], Partial fill upon patient request if the [...] patch, 5 Refills, Maintenance, 06/09/21 18:36:00 EST, [facility] #[id number], Partial fill upon patient request if the prescription is for a schedule II opioid drug., 1 patch Topically, 158, cm, 12/06/20 8... Start Date: 06/09/21 Status: Ordered folic acid 0.4 mg oral tablet 1 tablet = 0.4 mg, By Mouth, Daily, # 100 tablet, 3 Refills, Maintenance, 06/26/21 16:54:00 EST, Tablet, [facility] #[id number], Partial fill upon patient request if the [...] patch, 1 Refills, Maintenance, 06/10/21 14:42:00 EST, [facility] #[id number], Partial fill upon patient request if t... Start Date: 06/10/21 Status: Ordered Zofran 4 mg oral tablet 1 tablet = 4 mg, By Mouth, Every 8 hours, PRN as needed for nausea/vomiting, # 20 tablet, 0 Refills, Maintenance, 08/05/21 17:23:00 EST, Tablet, [facility] #[id number], Partial fill upon patientrequest if the prescription is for a schedule II op... Start Date: 08/05/21 Status: Ordered Zofran 8 mg oral tablet 1 tablet = 8 mg, By Mouth, 2 times a day, # 20 tablet, 0 Refills, Acute 08/27/22 11:32:00 EST, 08/26/21 11:31:00 EST, Tablet, [facility] #[id number], Partial fill upon patient request if the [...]
--- OUTSIDE RECORDS SUMMARY | 2024-04-10 10:58 | XMS_ITS | Continuity of Care Document ---
Author Organization [facility] Address [address] [place] [address]- Care Team Providers Care School Bus Inspector Name Role Phone Kaylah SNOW, Mariposa Cassidy Primary Care Physician Encounter [facility] [place] Date(s): 02/11/24 - 03/12/24 [facility] [address] [place] [address]- Allergies, Adverse Reactions, Alerts Substance Reaction Severity Status codeine red itchy Active Adhesive Bandage 1 Active aspirin red itchy Active morphine rash Active shellfish throat swells Active 1rash Immunizations [...] 02/10/24 12:08:00 EDT, Route to Pharmacy Electronically, [facility] #[id number], Partial fill upon patient request if the prescription is for a sched... Start Date: 02/10/24 Status: Ordered ibuprofen 600 mg oral tablet 600 mg, 1, tablet, By Mouth, Every 6 hours, PRN, # 30 tablet, Refills 0, Tot. Refills 0, Maintenance, Pain , Mild, 02/10/24 12:07:00 EDT, Route to Pharmacy Electronically, [facility] #[id number], Partial fill upon patient request if the prescript... Start Date: 02/10/24 Status: Ordered levothyroxine 150 mcg (0.15 mg) oral tablet 1 tablet = 150 mcg, By Mouth, Daily, # 30 tablet, 2 Refills, Maintenance, 09/17/23 15:00:00 EST, Tablet, [facility] #[id number], Partial fill upon patient request if the prescription is for a schedule II opioid drug., 158, cm, 04/10/22 11:14:00 E... Start Date: 09/17/23 Status: Ordered MiraLax oral powder for reconstitution = 17 Gm, By Mouth, Daily, dissolve in water before taking, # 255 Gm, 0 Refills, Maintenance, 02/10/24 12:07:00 EDT, REC Powder, [facility] #[id number], Partial fill upon patient request if the prescription is for a schedule II opioid drug., 17 Gm... Start Date: 02/10/24 Status: Ordered oxyCODONE 5 mg oral tablet 5 mg, 1, tablet, By Mouth, Every 6 hours, PRN, # 7 tablet, Refills 0, Tot. Refills 0, Maintenance, as needed for pain, 02/10/24 12:06:00 EDT, Route to Pharmacy Electronically, [facility] #[id number], Partial fill upon patient request if the presc... Start Date: 02/10/24 Status: Ordered Senna 8.6 mg oral tablet 8.6 mg, 1, tablet, By Mouth, Daily at bedtime, # 28 tablet, Refills 0, Tot. Refills 0, Maintenance,02/10/24 12:07:00 EDT, Route to Pharmacy Electronically, [facility] #[id number], Partial fill upon patient request if the prescription is for a sc... Start Date: 02/10/24 Status: Ordered simethicone 125 mg oral capsule 1 capsule = 125 mg, By Mouth, 4 times a day, PRN Gas, # 30 capsule, 0 Refills, Maintenance, 02/10/24 12:09:00 EDT, Capsule, [facility] #[id number], Partial fill upon patient request if the [...] Team Personnel Name: Vidya Lobo RN Position: [facility] SN RN Member Role: Primary Care Nurse Name: Joy Herron RN Position: [facility] PATRICE Nurse Member Role: Primary Care Nurse Name: Mariposa Adrian NP Position: Reference Physician Member Role: PCP Address: Address: [address] [place] [address]- Care Team Related Persons Name: POLO MANRIQUEZ Address: home [address] [place], [place] Name: MAGUI MANRIQUEZ Address: [address] Address: home [address] [place] [address] Name: ALCIDES WARNER Address: home [address] [address]
--- OUTSIDE RECORDS SUMMARY | 2024-04-10 10:58 | XMS_ITS | Continuity of Care Document ---
Author Organization [facility] [employer] Address [address] [place] [address], [address] [place] [address]- Care Team Providers Care Security Inspector Name Role Phone Kaylah SNOW, Mariposa Cassidy Primary Care Physician [phone] [id number] Date(s): 01/30/22 - 03/01/22 [facility] [address], [address] [place] [address]- Allergies, Adverse Reactions, Alerts Substance Reaction Severity [...] 08/26/21 11:37:00 EST, Route to Pharmacy Electronically, [facility] #[id number], Partial fill upon patient request if the prescription is for a schedule II opioi... Start Date: 08/26/21 Status: Ordered bisacodyl 10 mg rectal suppository 1 supp = 10 mg, Rectally, Daily, PRN for constipation, # 10 supp, 0 Refills, Maintenance, 08/10/21 18:57:00 EST, Suppository, [facility]/pharmacy #[id number], Partial fill upon patient request if [...] 3 Refills, Maintenance, 06/26/21 16:54:00 EST, Tablet, [facility] #[id number], Partial fill upon patient request if the [...] 60each, 3 Refills, Maintenance, 02/18/22 11:08:00 EDT, [facility] #[id number], Partial fill uponpatient request if the prescription [...] 1 Refills, Maintenance, 08/10/21 18:58:00 EST, Tablet, [facility]/pharmacy #[id number], Partial fill upon patient request if the prescription is for a schedule II opioid drug., 158, cm,... Start Date: 08/10/21 Status: Ordered Zofran 8 mg oral tablet 1 tablet = 8 mg, By Mouth, 2 times a day, # 20 tablet, 0 Refills, Acute 08/27/22 11:32:00 EST, 08/26/21 11:31:00 EST, Tablet, [facility] #[id number], Partial fill upon patient request if the [...]
--- OUTSIDE RECORDS SUMMARY | 2024-04-10 10:58 | XMS_ITS | Continuity of Care Document ---
Author Organization [facility] Address Unknown Care Team Providers Care Air Export Logistics Manager Name Role Phone Kaylah SNOW, Mariposa Cassidy Primary Care Physician En[place] [facility] [place] Date(s): 09/04/21 - 10/04/21 [facility] Allergies, Adverse Reactions, Alerts [...] 08/26/21 11:37:00 EST, Route to Pharmacy Electronically, [facility] #[id number], Partial fill upon patient request if the prescription is for a schedule II opioi... Start Date: 08/26/21 Status: Ordered bisacodyl 10 mg rectal suppository 1 supp = 10 mg, Rectally, Daily, PRN for constipation, # 10 supp, 0 Refills, Maintenance, 08/10/21 18:57:00 EST, Suppository, [facility]/pharmacy #[id number], Partial fill upon patient request if the prescriptionis for a schedule II opioid drug., 158, cm, ... Start Date: 08/10/21 Status: Ordered clotrimazole 1% topical cream 1 application, Topically, 2 times a day, # 15 Gm, 0 Refills, Maintenance, 10/03/21 9:22:00 EDT, Cream, [facility]/pharmacy #[id number], Partial fill upon patient request if [...] Refills, Maintenance, 08/26/21 11:31:00 EST, CR Tablet, [facility] #[id number], Partial fill upon patient request if the [...] patch, 5 Refills, Maintenance, 06/09/21 18:36:00 EST, [facility] #[id number], Partial fill upon patient request if the prescription is for a schedule II opioid drug., 1 patch Topically, 158, cm, 12/06/20 8... Start Date: 06/09/21 Status: Ordered folic acid 0.4 mg oral tablet 1 tablet = 0.4 mg, By Mouth, Daily, # 100 tablet, 3 Refills, Maintenance, 06/26/21 16:54:00 EST, Tablet, [facility] #[id number], Partial fill upon patient request if the prescription is for a schedule II opioid drug., 158, cm, 06/24/21 9:16:00 ES... Start Date: 06/26/21 Status: Ordered levothyroxine 150 mcg (0.15 mg) oral tablet 1 tablet = 150 mcg, By Mouth, Daily, # 60 tablet, 1 Refills, Maintenance, 02/17/21 13:28:00 EDT, Tablet, [facility] #[id number], Partial fill upon patient request if the [...] 1 Refills, Maintenance, 08/10/21 18:58:00 EST, Tablet, [id number], Partial fill upon patient request if the prescription is for a schedule II opioid drug., 158, cm,... Start Date: 08/10/21 Status: Ordered terconazole topical 80 mg suppository 1 supp = 80 mg, Vaginally, Daily at bedtime, for 3 days, Acute, # 3 supp, 0 Refills, Acute 229:24:00 EDT, 10/03/21 9:24:00 EDT, [id number], Partial fill upon patient request if the prescription is for a schedule II opioid drug., 1 supp... Start Date: 10/03/21 Stop Date: 10/06/21 Status: Ordered terconazole topical 80 mg suppository 1 supp = 80 mg, Vaginally, Daily at bedtime, for 3 days, Acute, # 3 supp, 0 Refills, Acute :24:00 EDT, 10/06/21 9:24:00 EDT, [facility] #[id number], Partial fill upon patient request if the [...] patch, 1 Refills, Maintenance, 06/10/21 14:42:00 EST, [facility] #[id number], Partial fill upon patient request if t... Start Date: 06/10/21 Status: Ordered Zofran 4 mg oral tablet 1 tablet = 4 mg, By Mouth, Every 8 hours, PRN as needed for nausea/vomiting, # 20 tablet, 0 Refills, Maintenance, 08/05/21 17:23:00 EST, Tablet, [facility] #[id number], Partial fill upon patientrequest if the prescription is for a schedule II op... Start Date: 08/05/21 Status: Ordered Zofran 8 mg oral tablet 1 tablet = 8 mg, By Mouth, 2 times a day, # 20 tablet, 0 Refills, Acute 08/27/22 11:32:00 EST, 08/26/21 11:31:00 EST, Tablet, [facility] #[id number], Partial fill upon patient request if the [...]
--- OUTSIDE RECORDS SUMMARY | 2024-04-10 10:58 | XMS_ITS | Continuity of Care Document ---
Author Organization [facility] Address [address] [place] [address]- Care Team Providers Care Scheduler Maintenance Name Role Phone Mason Rinaldi MD Primary Care Physician Encounter [facility] [place] [facility] Date(s): 03/11/20 - 04/10/20 [facility] [address] [place] [address]- [facility] Attending Physician: Admpreet, Eugene8 Admitting Physician: AdmtrFarzad Referring Physician: Admtr, Ar8 Allergies, Adverse Reactions, [...] 2 pack/packet, 3 Refills, Maintenance, 01/12/20 17:03:00 EDT,[facility] #[id number], 1 tablet By Mouth Piedad... Start Date: 01/12/20 Status: Ordered cabergoline 0.5 mg oral tablet 1 tablet = 0.5 mg, By Mouth, Daily, Begin 2 hours before hCG injection, # 7 tablet, 0 Refills, Maintenance, 04/08/20 14:58:00 EDT, [facility] #[id number], 158, cm, 03/21/20 8:43:00 EDT, Height, 88.2, [...] 0 Refills, Maintenance, 12/27/19 10:14:00 EDT, Tablet, [facility] #[id number], labs needed prior to next refill, 158, cm, 09/22/19 1... Start Date: 12/27/19 Status: Ordered levothyroxine 175 mcg (0.175 mg) oral tablet 1 tablet = 175 mcg, By Mouth, Daily, # 30 tablet, 3 Refills, Maintenance, 02/01/20 13:20:00 EDT, Tablet, [facility] #[id number], 158, cm, 01/29/20 13:44:00 EDT, Height, 88.2, [...] tablet, 11 Refills, Maintenance, 01/31/20 11:39:00 EDT, [facility] #[id number], 158, cm, 01/29/20 13:44:00 EDT, Height, 88.2, [...] 04/09/20 8:51:00 EDT, Route to Pharmacy Electronically, [facility] #[id number], Partial fill upon patient request, 158, cm, [...] 6 Refills, Maintenance, 02/05/20 15:13:00 EDT, Tablet, [facility] #[id number], 158, cm, 01/29/20 13:44:00 EDT, Height, 88.2, [...] 04/09/20 8:51:00 EDT, Route to Pharmacy Electronically, [facility] #[id number]... Start Date: 04/09/20 Status: Ordered Problem [...]
--- OUTSIDE RECORDS SUMMARY | 2024-04-10 10:58 | XMS_ITS | Continuity of Care Document ---
Author Organization [facility] Address [address] [place] [address]- Care Team Providers Care Pail Tester Name Role Phone Kaylah SNOW, Mariposa Cassidy Primary Care Physician [phone] En[place] [facility] [place] Date(s): 02/09/22 - 03/11/22 [facility] [address] [place] [address]- Allergies, Adverse Reactions, Alerts Substance Reaction Severity [...] 0 Refills, Maintenance, 03/05/22 22:26:00 EDT, Capsule, [facility] #[id number], Partial fill upon patient request if the prescription is for a schedule II opioid drLeslie. Start Date: 03/05/22 Status: Ordered aspirin 81 mg oral tablet, chewable 162 mg, 2, tablet, Chew, Daily, # 60 tablet, Refills 8, Tot. Refills 8, Maintenance, 08/26/21 11:37:00 EST, Route to Pharmacy Electronically, [facility] #[id number], Partial fill upon patient request if the prescription is for a schedule II opioi... Start Date: 08/26/21 Status: Ordered Colace sodium 100 mg oral capsule 100 mg, 1, capsule, By Mouth, 2 times a day, PRN, # 20 capsule, Refills 0, Tot. Refills 0, Maintenance, for constipation, 03/05/22 22:26:00 EDT, Route to Pharmacy Electronically, [facility][id number], Partial fill upon patient request if the pr... Start Date: 03/05/22 Status: Ordered ibuprofen 600 mg oral tablet 600 mg, 1, tablet, By Mouth, Every 6 hours, # 50 tablet, Refills 0, Tot. Refills 0, Maintenance, 03/05/22 22:26:00 EDT, Route to Pharmacy Electronically, [facility] #[id number], Partial fill upon patient request if the [...] 03/05/22 22:26:00 EDT, Route to Pharmacy Electronically, [facility] #[id number], Partial fill upon patient request if the [...] 0 Refills, Maintenance, 03/05/22 22:26:00 EDT,Chew Tablet, [facility] #[id number], Partial fill upon patient request if the [...]
--- OUTSIDE RECORDS SUMMARY | 2024-04-10 10:58 | XMS_ITS | Continuity of Care Document ---
Author Organization [facility] Address [address] [facility], [address] [place] [address]- Care Team Providers Care Liquefied Natural Gas Plant Operator Name Role Phone Mason Rinaldi MD Primary Care Physician Encounter [facility] Date(s): 06/29/19 - 07/09/19 [facility] [address] [facility] [place] [address]- [facility] Attending Physician: Farzad Resendez Admitting Physician: Farzad [...]
--- OUTSIDE RECORDS SUMMARY | 2024-04-10 10:58 | XMS_ITS | Continuity of Care Document ---
Author Organization [facility] [employer] [employer] Address [address] [place] [address], [address] [place] [address]- Care Team Providers Care Software Qa Manager Name Role Phone Kaylah SNOW, Mariposa Cassidy Primary Care Physician [id number] Date(s): 12/01/21 - 12/08/21 [facility] [employer] [facility] [address] [facility] [place], [place] [address] Attending Physician: Yong REYES, Sofía Staley Referring Physician: Mariposa Adrian NP Allergies, Adverse [...] 08/26/21 11:37:00 EST, Route to Pharmacy Electronically, [facility] #[id number], Partial fill upon patient request if the [...] 10/21/21 13:22:00 EDT, Route to Pharmacy Electronically, [facility] #[id number], Partial fill upon patient request if the [...] Refills, Maintenance, 08/26/21 11:31:00 EST, CR Tablet, [facility] #[id number], Partial fill upon patient request if the [...] patch, 5 Refills, Maintenance, 06/09/21 18:36:00 EST, [facility] #[id number], Partial fill upon patient request if the prescription is for a schedule II opioid drug., 1 patch Topically, 158, cm, 12/06/20 8... Start Date: 06/09/21 Status: Ordered folic acid 0.4 mg oral tablet 1 tablet = 0.4 mg, By Mouth, Daily, # 100 tablet, 3 Refills, Maintenance, 06/26/21 16:54:00 EST, Tablet, [facility] #[id number], Partial fill upon patient request if the [...] patch, 1 Refills, Maintenance, 06/10/21 14:42:00 EST, [facility] #[id number], Partial fill upon patient request if t... Start Date: 06/10/21 Status: Ordered Zofran 4 mg oral tablet 1 tablet = 4 mg, By Mouth, Every 8 hours, PRN as needed for nausea/vomiting, # 20 tablet, 0 Refills, Maintenance, 08/05/21 17:23:00 EST, Tablet, [facility] #[id number], Partial fill upon patientrequest if the prescription is for a schedule II op... Start Date: 08/05/21 Status: Ordered Zofran 8 mg oral tablet 1 tablet = 8 mg, By Mouth, 2 times a day, # 20 tablet, 0 Refills, Acute 08/27/22 11:32:00 EST, 08/26/21 11:31:00 EST, Tablet, [facility] #[id number], Partial fill upon patient request if the [...]
--- OUTSIDE RECORDS SUMMARY | 2024-04-10 10:58 | XMS_ITS | Continuity of Care Document ---
Author Organization [facility] [employer] [facility] Address [address] [place] [address], [address] [place] [address]- Care Team Providers Care Physician Obstetrician Name Role Phone Kaylah SNOW, Mariposa Cassidy Primary Care Physician En[facility] [place] Date(s): 09/02/21 - 10/02/21 [facility] [employer] [facility] [address] [place] [address], [address] [place] [address]- Allergies, Adverse Reactions, Alerts Substance Reaction Severity [...] 08/26/21 11:37:00 EST, Route to Pharmacy Electronically, [facility] #[id number], Partial fill upon patient request if the prescription is for a schedule II opioi... Start Date: 08/26/21 Status: Ordered bisacodyl 10 mg rectal suppository 1 supp = 10 mg, Rectally, Daily, PRN for constipation, # 10 supp, 0 Refills, Maintenance, 08/10/21 18:57:00 EST, Suppository, [facility]/pharmacy #[id number], Partial fill upon patient [...] Refills, Maintenance, 08/26/21 11:31:00 EST, CR Tablet, [facility] #[id number], Partial fill upon patient request if the [...] patch, 5 Refills, Maintenance, 06/09/21 18:36:00 EST, [facility] #[id number], Partial fill upon patient request if the prescription is for a schedule II opioid drug., 1 patch Topically, 158, cm, 12/06/20 8... Start Date: 06/09/21 Status: Ordered folic acid 0.4 mg oral tablet 1 tablet = 0.4 mg, By Mouth, Daily, # 100 tablet, 3 Refills, Maintenance, 06/26/21 16:54:00 EST, Tablet, [facility] #[id number], Partial fill upon patient request if the prescription is for a schedule II opioid drug., 158, cm, 06/24/21 9:16:00 ES... Start Date: 06/26/21 Status: Ordered levothyroxine 150 mcg (0.15 mg) oral tablet 1 tablet = 150 mcg, By Mouth, Daily, # 60 tablet, 1 Refills, Maintenance, 02/17/21 13:28:00 EDT, Tablet, [facility] #[id number], Partial fill upon patient request if the [...] 1 Refills, Maintenance, 08/10/21 18:58:00 EST, Tablet, [facility]/pharmacy #[id number], Partial fill upon patient [...] patch, 1 Refills, Maintenance, 06/10/21 14:42:00 EST, [facility] #[id number], Partial fill upon patient request if t... Start Date: 06/10/21 Status: Ordered Zofran 4 mg oral tablet 1 tablet = 4 mg, By Mouth, Every 8 hours, PRN as needed for nausea/vomiting, # 20 tablet, 0 Refills, Maintenance, 08/05/21 17:23:00 EST, Tablet, [facility] #[id number], Partial fill upon patientrequest if the prescription is for a schedule II op... Start Date: 08/05/21 Status: Ordered Zofran 8 mg oral tablet 1 tablet = 8 mg, By Mouth, 2 times a day, # 20 tablet, 0 Refills, Acute 08/27/22 11:32:00 EST, 08/26/21 11:31:00 EST, Tablet, [facility] #[id number], Partial fill upon patient request if the [...]
--- OUTSIDE RECORDS SUMMARY | 2024-04-10 10:58 | XMS_ITS | Continuity of Care Document ---
Author Organization [facility] Address [address] [place] [address]- Care Team Providers Care Strawhat Sizer Name Role Phone Kaylah SNOW, Mariposa M Primary Care Physician [phone] Encounter [facility] Date(s): 10/16/21 - 10/17/[address] [address]- Encounter Diagnosis Abdominal pain in (Final) - 10/16/21 Discharge Disposition: A-D/C Home Attending Physician: Alla Shane MD Admitting Physician: Vance Orona MD Referring Physician: Not on Staff, Referring [...] Acute 10/22/21 14:40:00 EDT,10/17/21 14:40:00 EDT, Tablet, [facility], Partial fill upon patient [...] 08/26/21 11:37:00 EST, Route to Pharmacy Electronically, [facility] #[id number], Partial fill upon patient request if the [...] Refills, Maintenance, 10/03/21 9:22:00 EDT, Cream, [facility]/pharmacy #[id number], Partial fill [...] Refills, Maintenance, 08/26/21 11:31:00 EST, CR Tablet, [facility] #[id number], Partial fill upon patient request if the [...] patch, 5 Refills, Maintenance, 06/09/21 18:36:00 EST, [facility] #[id number], Partial fill upon patient request if the prescription is for a schedule II opioid drug., 1 patch Topically, 158, cm, 12/06/20 8... Start Date: 06/09/21 Status: Ordered folic acid 0.4 mg oral tablet 1 tablet = 0.4 mg, By Mouth, Daily, # 100 tablet, 3 Refills, Maintenance, 06/26/21 16:54:00 EST, Tablet, [facility] #[id number], Partial fill upon patient request if the [...] patch, 1 Refills, Maintenance, 06/10/21 14:42:00 EST, [facility] #[id number], Partial fill upon patient request if t... Start Date: 06/10/21 Status: Ordered Zofran 4 mg oral tablet 1 tablet = 4 mg, By Mouth, Every 8 hours, PRN as needed for nausea/vomiting, # 20 tablet, 0 Refills, Maintenance, 08/05/21 17:23:00 EST, Tablet, [facility] #[id number], Partial fill upon patientrequest if the prescription is for a schedule II op... Start Date: 08/05/21 Status: Ordered Zofran 8 mg oral tablet 1 tablet = 8 mg, By Mouth, 2 times a day, # 20 tablet, 0 Refills, Acute 08/27/22 11:32:00 EST, 08/26/21 11:31:00 EST, Tablet, [facility] #[id number], Partial fill upon patient request if the [...] to oldest [Reference Range]: 1 2 3 Oxygen Saturation [94-100 %] 99 % (10/17/21 10:59 AM) 98 % (10/17/21 8:13 AM) 95 % (10/17/21 6:30 AM) Pulse Rate [55-90 bpm] 68 bpm (10/17/21 10:59 AM) 62 bpm (10/17/21 8:13 AM) 61 bpm (10/17/21 6:30 AM) Blood Pressure [90-138/55-84 mm Hg] 109/63mm Hg (10/17/21 10:59 AM) 120/67mm Hg (10/17/21 8:13 AM) 101/59mm Hg (10/17/21 6:30 AM) Respiratory Rate [16-30 br/min] 18 br/min (10/17/21 11:55 AM) 19 br/min (10/17/21 10:59 AM) 16 br/min (10/17/21 8:13 AM) Temperature [96.8-100.4 DegF] 98.6 DegF (10/17/21 10:59 AM) 98.3 DegF (10/17/21 8:13 AM) 98.8 DegF (10/17/21 6:30 AM) Mode of Delivery (Oxygen) Room air (10/17/21 10:59 AM) Room air (10/17/21 8:13 AM) Room air (10/17/21 6:30 AM) Blood pressure sites Arm, right (10/17/21 10:59 AM) Arm, right (10/17/21 8:13 AM) Arm, right (10/17/21 6:30 AM) Temperature Route Oral (10/17/21 8:13 AM) Oral (10/17/21 6:30 AM) Oral (10/16/21 10:10 PM) Social History Social History Type Response Smoking Status Never (less than 100 in lifetime) entered on: 08/25/21 Sex
--- OUTSIDE RECORDS SUMMARY | 2024-04-10 10:58 | XMS_ITS | Continuity of Care Document ---
Author Organization [facility] e Medicine Address [address] [facility], 4t h [address] [place] [address]- Care Team Providers Care Switchboard Installer Name Role Phone Mason Rinaldi MD Primary Care Physician [place] [facility] [place]20 [facility] [address] [facility], 4th [address] [place] [address]- Allergies, Adverse Reactions, Alerts Substance Reaction Severity [...] each, 0 Refills, Maintenance, 05/09/20 7:54:00 EDT, [facility], 158, cm, 05/02/20 14:32:00 EDT, Height, 88.2, kg, 01/09/19 16:14:00 EDT, Dry Weight Start Date: 05/09/20 Status: Ordered Folbic oral tablet 1 tablet, By Mouth, Daily, # 30 tablet, 11 Refills, Maintenance, 07/05/20 10:24:00 EST, [facility] #[id number], Partial fill upon patient request if the prescription is for a schedule II opioid drug., 1 tablet By Mouth Daily, 158, cm, 05/02/20 14... Start Date: 07/05/20 Status: Ordered metFORMIN 500 mg oral tablet, extended release 3 tablet = 1,500 mg, By Mouth, Daily, with evening meal, # 90 tablet, 11 Refills, Maintenance, 01/31/20 11:39:00 EDT, [facility] #[id number], 158, cm, 01/29/20 13:44:00 EDT, Height, 88.2, [...] 05/31/20 15:20:00 EST, Route to Pharmacy Electronically, [facility] #[id number], Partial fill upon patient request, 158, cm, [...] 6 Refills, Maintenance, 02/05/20 15:13:00 EDT, Tablet, [facility] #[id number], 158, cm, 01/29/20 13:44:00 EDT, Height, 88.2, kg, 01/09/19 16:14:00 EDT, Dry Weight Start Date: 02/05/20 Status: Ordered Zofran 8 mg oral tablet 1 tablet = 8 mg, By Mouth, Every 8 hours, PRN Nausea & Vomiting, # 10 tablet, 0 Refills, Maintenance, 05/31/20 11:44:00 EST, Tablet, [facility] #[id number], Partial fill upon patient request, 158, cm, [...]
--- OUTSIDE RECORDS SUMMARY | 2024-04-10 10:58 | XMS_ITS | Continuity of Care Document ---
Author Organization [facility] Medicine Address [address] [place] [address], 4t [address] [place] [address]- Care Team Providers Care Senior Laboratory Technician Name Role Phone Lesser Mason REYES Primary Care Physician [phone] Encounter [facility] [place](s): 06/20/20 - 07/20/20 [facility] [address] [place] [address], 4th [address] [place] [address] Allergies, Adverse Reactions, Alerts Substance Reaction [...] each, 0 Refills, Maintenance, 05/09/20 7:54:00 EDT, [facility], 158, cm, 05/02/20 14:32:00 EDT, Height, 88.2, kg, 01/09/19 16:14:00 EDT, Dry Weight Start Date: 05/09/20 Status: Ordered Folbic oral tablet 1 tablet, By Mouth, Daily, # 30 tablet, 11 Refills, Maintenance, 07/05/20 10:24:00 EST, [facility] #[id number], Partial fill upon patient request if the prescription is for a schedule II opioid drug., 1 tablet By Mouth Daily, 158, cm, 05/02/20 14... Start Date: 07/05/20 Status: Ordered metFORMIN 500 mg oral tablet, extended release 3 tablet = 1,500 mg, By Mouth, Daily, with evening meal, # 90 tablet, 11 Refills, Maintenance, 01/31/20 11:39:00 EDT, [facility] #[id number], 158, cm, 01/29/20 13:44:00 EDT, Height, 88.2, [...] 05/31/20 15:20:00 EST, Route to Pharmacy Electronically, [facility] #[id number], Partial fill upon patient request, 158, cm, [...] 6 Refills, Maintenance, 02/05/20 15:13:00 EDT, Tablet, [facility] #[id number], 158, cm, 01/29/20 13:44:00 EDT, Height, 88.2, kg, 01/09/19 16:14:00 EDT, Dry Weight Start Date: 02/05/20 Status: Ordered Zofran 8 mg oral tablet 1 tablet = 8 mg, By Mouth, Every 8 hours, PRN Nausea & Vomiting, # 10 tablet, 0 Refills, Maintenance, 05/31/20 11:44:00 EST, Tablet, [facility] #[id number], Partial fill upon patient request, 158, cm, [...]
--- OUTSIDE RECORDS SUMMARY | 2024-04-10 10:58 | XMS_ITS | Continuity of Care Document ---
Author Organization [facility] ter Address [address] [place] [address]- Care Team Providers Care Cattle Shipper Name Role Phone Kaylah SNOW, Mariposa M Primary Care Physician [phone] [place] [facility] [place] - 03/27/[address] [address]- Attending Physician: Mary Herrera MD Referring Physician: Mary Herrera MD Allergies, [...] 0 Refills, Maintenance, 03/05/22 22:26:00 EDT, Capsule, [facility] #[id number], Partial fill upon patient request if the prescription is for a schedule II opioid drLeslie. Start Date: 03/05/22 Status: Ordered aspirin 81 mg oral tablet, chewable 162 mg, 2, tablet, Chew, Daily, # 60 tablet, Refills 8, Tot. Refills 8, Maintenance, 08/26/21 11:37:00 EST, Route to Pharmacy Electronically, [facility] #[id number], Partial fill upon patient request if the prescription is for a schedule II opioi... Start Date: 08/26/21 Status: Ordered Colace sodium 100 mg oral capsule 100 mg, 1, capsule, By Mouth, 2 times a day, PRN, # 20 capsule, Refills 0, Tot. Refills 0, Maintenance, for constipation, 03/05/22 22:26:00 EDT, Route to Pharmacy Electronically, [facility]#[id number], Partial fill upon patient request if the pr... Start Date: 03/05/22 Status: Ordered ibuprofen 600 mg oral tablet 600 mg, 1, tablet, By Mouth, Every 6 hours, # 50 tablet, Refills 0, Tot. Refills 0, Maintenance, 03/05/22 22:26:00 EDT, Route to Pharmacy Electronically, [facility] #[id number], Partial fill upon patient request if the [...] 03/05/22 22:26:00 EDT, Route to Pharmacy Electronically, [facility] #[id number], Partial fill upon patient request if the [...] 0 Refills, Maintenance, 03/05/22 22:26:00 EDT,[id number], Partial fill upon patient request if the [...] Team Personnel Name: Mariposa Adrian NP Address: [address] [place] [address]-
--- OUTSIDE RECORDS SUMMARY | 2024-04-10 10:58 | XMS_ITS | Continuity of Care Document ---
Author Organization [facility] e Medicine Address [address] [facility], 4t [address] [place] [address]- Care Team Providers Care Support Services Specialist Name Role Phone Mason Rinaldi MD Primary Care Physician [phone] [place] [facility] [place] 03/29/20 - 04/28/[address] [facility] [address], 4th [address] [place] [address]- [facility] Allergies, Adverse Reactions, Alerts Substance Reaction [...] 0 Refills, Maintenance, 04/16/20 15:59:00 EDT, [facility], olesya mishra order, 158, cm, 03/21/20 8:43:00 EDT, Height, 88.2, kg, 01/09/19 16:14:0... Start Date: 04/16/20 Status: Ordered levothyroxine 150 mcg (0.15 mg) oral tablet 1 tablet = 150 mcg, By Mouth, Daily, take 150 mcg , 1 pill 6 days a week and 0.5 pill , once a week, # 60 tablet, 0 Refills, Maintenance, 12/27/19 10:14:00 EDT, Tablet, [facility] #[id number], labs needed prior to next refill, 158, cm, 09/22/19 1... Start Date: 12/27/19 Status: Ordered levothyroxine 175 mcg (0.175 mg) oral tablet 1 tablet = 175 mcg, By Mouth, Daily, # 30 tablet, 3 Refills, Maintenance, 02/01/20 13:20:00 EDT, Tablet, [facility] #[id number], 158, cm, 01/29/20 13:44:00 EDT, Height, 88.2, kg, 01/09/19 16:14:00 EDT, Dry Weight Start Date: 02/01/20 Status: Ordered metFORMIN 500 mg oral tablet, extended release 3 tablet = 1,500 mg, By Mouth, Daily, with evening meal, # 90 tablet, 11 Refills, Maintenance, 01/31/20 11:39:00 EDT, [facility] #[id number], 158, cm, 01/29/20 13:44:00 EDT, Height, 88.2, [...] 6 Refills, Maintenance, 02/05/20 15:13:00 EDT, Tablet, [facility] #[id number], 158, cm, 01/29/20 13:44:00 EDT, Height, 88.2, [...] 04/09/20 8:51:00 EDT, Route to Pharmacy Electronically, [facility] #[id number]... Start Date: 04/09/20 Status: Ordered Vivelle-Dot 0.1 mg/24 hours twice weekly transdermal film, extended release See Instructions, apply 1 patch day 1 of menses and follow the FET protocol, # 32 each, 3 Refills, Maintenance, 04/16/20 14:29:00 EDT, [facility], pt needs meds for tomorrow, [...]
--- OUTSIDE RECORDS SUMMARY | 2024-04-10 10:58 | XMS_ITS | Continuity of Care Document ---
Author Organization [facility] Medicine Address [address] [facility], 4t [address] [place] [address]- Care Team Providers Care Artificial Pearl Maker Name Role Phone Mason Rinaldi MD Primary Care Physician [place] [facility] [place](s): 05/20/20 - 07/04/20 [facility] [address], 4th [address] [place] [address]- Attending Physician: Lee Ann Stephens MD Referring [...] each, 0 Refills, Maintenance, 05/09/20 7:54:00 EDT, [facility], 158, cm, 05/02/20 14:32:00 EDT, Height, 88.2, kg, 01/09/19 16:14:00 EDT, Dry Weight Start Date: 05/09/20 Status: Ordered metFORMIN 500 mg oral tablet, extended release 3 tablet = 1,500 mg, By Mouth, Daily, with evening meal, # 90 tablet, 11 Refills, Maintenance, 01/31/20 11:39:00 EDT, [facility] #[id number], 158, cm, 01/29/20 13:44:00 EDT, Height, 88.2, [...] 05/31/20 15:20:00 EST, Route to Pharmacy Electronically, [facility] #[id number], Partial fill upon patient request, 158, cm, [...] 6 Refills, Maintenance, 02/05/20 15:13:00 EDT, Tablet, [facility] #[id number], 158, cm, 01/29/20 13:44:00 EDT, Height, 88.2, kg, 01/09/19 16:14:00 EDT, Dry Weight Start Date: 02/05/20 Status: Ordered Zofran 8 mg oral tablet 1 tablet = 8 mg, By Mouth, Every 8 hours, PRN Nausea & Vomiting, # 10 tablet, 0 Refills, Maintenance, 05/31/20 11:44:00 EST, Tablet, [facility] #[id number], Partial fill upon patient request, 158, cm, [...]
--- OUTSIDE RECORDS SUMMARY | 2024-04-10 10:58 | XMS_ITS | Continuity of Care Document ---
Author Organization [facility] Address [address] [place] [address]- Care Team Providers Care Linting Machine Operator Name Role Phone Lesser Mason REYES Primary Care Physician [place] [facility] [place] 06/21/19 - 07/01/19 [facility] [address] [place] [address]- [facility] Attending Physician: Farzad Resendez Admitting Physician: AdmFarzad [...]
--- OUTSIDE RECORDS SUMMARY | 2024-04-10 10:58 | XMS_ITS | Continuity of Care Document ---
Author Organization [facility] Address [address] [place] [address]- Care Team Providers Care Marine Painter Name Role Phone Kaylah SNOW, Mariposa Cassidy Primary Care Physician [phone] [facility] [place] Date(s): 09/16/23 - 12/22/23 [facility] [address] [place] [address]- Encounter Diagnosis Post-surgical hypothyroidism(Discharge Diagnosis) - 11/19/23 Attending Physician: Skye Deluca MD Admitting Physician: Skye Deluca MD Referring Physician: Mariposa Adrian NP Allergies, [...] 2 Refills, Maintenance, 09/17/23 15:00:00 EST, Tablet, [facility] #[id number], Partial fill upon patient request if the [...] 08/26/21 negative with negative HPV Confirmed Active Diagnosis Diagnosis Type Effective Dates Health Status Clinical Service Informant Post-surgical hypothyroidism Discharge Diagnosis 11/19/23 Social History Social History Type Response Smoking Status Never (less than 100 in lifetime) entered on: 08/25/21 Sex Female Patient Care team information Care Team Personnel Name: Vidya Lobo RN Position: [facility] RN Member Role: Primary Care Nurse Name: Joy Herron RN Position: [facility] RN Member Role: Primary Care Nurse Name: Mariposa Adrian NP Position: Reference Physician Member Role: PCP Address: Address: [address] [place] [address]- Care Team Related Persons Name: POLO MANRIQUEZ Address: home [address] [place], [place] Name: MAGUI MANRIQUEZ Address: [address] Address: home [address] [place] [address] Name: ALCIDES WARNER Address: home [address] [address]
--- OUTSIDE RECORDS SUMMARY | 2024-04-10 10:58 | XMS_ITS | Continuity of Care Document ---
Author Organization [facility] ter Address [address] [place] [address]- Care Team Providers Care Automotive Alignment Specialist Name Role Phone Kaylah SNOW, Mariposa Cassidy Primary Care Physician Encounter [facility] [place] Date(s): 07/17/21 - 07/17/[address] [address]- Encounter Diagnosis Pelvic pain(Discharge Diagnosis) - 07/17/21 Discharge Disposition: A-D/C Home Attending Physician: Sofía [...] patch, 5 Refills, Maintenance, 06/09/21 18:36:00 EST, [facility] #[id number], Partial fill upon patient request if the prescription is for a schedule II opioid drug., 1 patch Topically, 158, cm, 12/06/20 8... Start Date: 06/09/21 Status: Ordered folic acid 0.4 mg oral tablet 1 tablet = 0.4 mg, By Mouth, Daily, # 100 tablet, 3 Refills, Maintenance, 06/26/21 16:54:00 EST, Tablet, [facility] #[id number], Partial fill upon patient request if the prescription is for a schedule II opioid drug., 158, cm, 06/24/21 9:16:00 ES... Start Date: 06/26/21 Status: Ordered levothyroxine 150 mcg (0.15 mg) oral tablet 1 tablet = 150 mcg, By Mouth, Daily, # 60 tablet, 1 Refills, Maintenance, 02/17/21 13:28:00 EDT, Tablet, [facility] #[id number], Partial fill upon patient request if the prescription is for a schedule II opioid drug., 158, cm, 12/06/20 8:28:00 ED... Start Date: 02/17/21 Status: Ordered metFORMIN 500 mg oral tablet, extended release 3 tablet = 1,500 mg, By Mouth, Daily, with evening meal, # 90 tablet, 11 Refills, Maintenance, 01/31/20 11:39:00 EDT, [facility] #[id number], 158, cm, 01/29/20 13:44:00 EDT, Height, 88.2, [...] 07/17/21 16:04:00 EST, Route to Pharmacy Electronically, [facility] #[id number], Partial fill upon patient request, 158, cm, [...] 05/26/21 11:44:00 EST, Route to Pharmacy Electronically, [facility] #[id number], Partial fill upon patientrequest if the prescription is for a schedule II op... Start Date: 05/26/21 Stop Date: 06/05/21 Status: Ordered Provera 10 mg oral tablet 10 mg, 1, tablet, By Mouth, Daily, # 7 tablet, Refills 0, Tot. Refills 0, Maintenance, 02/17/21 13:23:00 EDT, Route to Pharmacy Electronically, [facility] #[id number], Partial fill upon patient request if the prescription is for a schedule II opi... Start Date: 02/17/21 Stop Date: 02/24/21 Status: Ordered Valium 5 mg oral tablet 5 mg, 1, tablet, By Mouth, scalloper to Procedure, May need to repeat!, # 2 tablet, Refills 0, Tot. Refills 0, Maintenance, 06/25/21 10:29:00 EST, Route to Pharmacy Electronically, [facility]#[id number], Partial fill upon patient request if the pr... Start Date: 06/25/21 Status: Ordered Vivelle-Dot 0.1 mg/24 hours twice weekly transdermal film, extended release See Instructions, Place 1 patch on day 1-4 then 2 patches on day 5-10 and then 4 patches on day 11-14 changing patches QOD., # 8 patch, 1 Refills, Maintenance, 06/10/21 14:42:00 EST, [facility] #[id number], Partial fill upon patient request if t... Start Date: 06/10/21 Status: Ordered Problem List Condition Effective Dates Status Health Status Inform ant Asthma(Confirmed) Active Chronic endometritis(Confirmed) Active Hypothyroidism(Confirmed) Active Infertility, Female, Associa patrice with Anovulation(Confirmed) Active Menorrhagia(Confirmed) Active Obese class II(Confirmed) Active PCOS - Polycystic ovarian syndrome(Confirmed) Active Suprapubic abdominal pain(Confirmed) Active Diagnosis Diagnosis Type Effective Dates Health Status Clini ismael Service Informant Pelvic pain Discharge Diagnosis 07/17/21 Procedures Procedure Date Related Diagnosis Body Site Status Appendectomy Completed Carpal tunnel Completed Vital Signs Most recent to oldest [Reference Range]: 1 Weight 87.8 kg (07/17/21 12:46 PM) Oxygen Saturation [94-100 %] 100 % (07/17/21 12:46 PM) Pulse Rate [55-90 bpm] 80 bpm (07/17/21 12:46 PM) Blood Pressure [90-138/55-84 mm Hg] 115/ 68mm Hg (07/17/21 12:46 PM) Respiratory Rate [16-30 br/min] 18 br/mi n (07/17/21 12:46 PM) Temperature [96.8-100.4 DegF] 98.2 DegF (07/17/21 12:46 PM) Mode of Delivery (Oxygen) Room air (07/17/21 12:46 PM) Blood pressure sites Arm, right 1 (07/17/21 12:46 PM) Temperature Route Oral (07/17/21 12:46 PM) Dry Weight 87.8 kg (07/17/21 12:46 PM) 1Result Comment: right upper arm measured 37.5cm Social History Social History Type Response Smoking Status Never smoker; Tobacc o user in household: No entered on: 12/24/15 Sex
--- OUTSIDE RECORDS SUMMARY | 2024-04-10 10:58 | XMS_ITS | Continuity of Care Document ---
Author Organization [facility] Address [address] [place] [address], [address] [place] [address]- Care Team Providers Care Anodizing Line Operator Name Role Phone Kaylah SNOW, Mariposa Cassidy Primary Care Physician [phone] [id number] Date[facility] - 02/14/22 [facility] [address] [facility], [address] [place] [address]- Allergies, Adverse Reactions, Alerts Substance Reaction Severity [...] 08/26/21 11:37:00 EST, Route to Pharmacy Electronically, [facility] #[id number], Partial fill upon patient request if the prescription is for a schedule II opioi... Start Date: 08/26/21 Status: Ordered bisacodyl 10 mg rectal suppository 1 supp = 10 mg, Rectally, Daily, PRN for constipation, # 10 supp, 0 Refills, Maintenance, 08/10/21 18:57:00 EST, Suppository, [facility]/pharmacy #[id number], Partial fill upon [...] 3 Refills, Maintenance, 06/26/21 16:54:00 EST, Tablet, [facility] #[id number], Partial fill upon patient request if the [...] 1 Refills, Maintenance, 08/10/21 18:58:00 EST, Tablet, [facility]/pharmacy #[id number], Partial fill upon patient request if the prescription is for a schedule II opioid drug., 158, cm,... Start Date: 08/10/21 Status: Ordered Zofran 8 mg oral tablet 1 tablet = 8 mg, By Mouth, 2 times a day, # 20 tablet, 0 Refills, Acute 08/27/22 11:32:00 EST, 08/26/21 11:31:00 EST, Tablet, [facility] #[id number], Partial fill upon patient request if the [...]
--- OUTSIDE RECORDS SUMMARY | 2024-04-10 10:58 | XMS_ITS | Continuity of Care Document ---
Author Organization [facility] Address Unknown Care Team Providers Care Suede Brusher Name Role Phone Kaylah SNOW, Mariposa Cassidy Primary Care Physician [phone] Encounter [facility] [place] Date(s): 06/16/21 - 07/16/21 [facility] Allergies, Adverse Reactions, Alerts [...] patch, 5 Refills, Maintenance, 06/09/21 18:36:00 EST, [facility] #[id number], Partial fill upon patient request if the prescription is for a schedule II opioid drug., 1 patch Topically, 158, cm, 12/06/20 8... Start Date: 06/09/21 Status: Ordered folic acid 0.4 mg oral tablet 1 tablet = 0.4 mg, By Mouth, Daily, # 100 tablet, 3 Refills, Maintenance, 06/26/21 16:54:00 EST, Tablet, [facility] #[id number], Partial fill upon patient request if the prescription is for a schedule II opioid drug., 158, cm, 06/24/21 9:16:00 ES... Start Date: 06/26/21 Status: Ordered levothyroxine 150 mcg (0.15 mg) oral tablet 1 tablet = 150 mcg, By Mouth, Daily, # 60 tablet, 1 Refills, Maintenance, 02/17/21 13:28:00 EDT, Tablet, [facility] #[id number], Partial fill upon patient request if the prescription is for a schedule II opioid drug., 158, cm, 12/06/20 8:28:00 ED... Start Date: 02/17/21 Status: Ordered metFORMIN 500 mg oral tablet, extended release 3 tablet = 1,500 mg, By Mouth, Daily, with evening meal, # 90 tablet, 11 Refills, Maintenance, 01/31/20 11:39:00 EDT, [facility] #[id number], 158, cm, 01/29/20 13:44:00 EDT, Height, 88.2, kg, 01/09/19 16:14:00 EDT, Dry Weight Start Date: 01/31/20 Stop Date: 01/25/21 Status: Ordered methylPREDNISolone 16 mg oral tablet = 16 mg, By Mouth, Daily, Take for 4 days when instructed with the last dose being the day of frozen embryo transfer, # 4 tablet, 0 Refills, Maintenance, 06/09/21 15:38:00 EST, [facility], Partial fill upon patient request if the [...] 07/09/21 10:58:00 EST, [facility], Partial fill upon patient request if the prescription is for a schedule II opioid... Start Date: 07/09/21 Status: Ordered Provera 10 mg oral tablet 10 mg, 1, tablet, By Mouth, Daily, # 10 tablet, Refills 0, Tot. Refills 0, Maintenance, 05/26/21 11:44:00 EST, Route to Pharmacy Electronically, [facility] #[id number], Partial fill upon patientrequest if the prescription is for a schedule II op... Start Date: 05/26/21 Stop Date: 06/05/21 Status: Ordered Provera 10 mg oral tablet 10 mg, 1, tablet, By Mouth, Daily, # 7 tablet, Refills 0, Tot. Refills 0, Maintenance, 02/17/21 13:23:00 EDT, Route to Pharmacy Electronically, [facility] #[id number], Partial fill upon patient request if the prescription is for a schedule II opi... Start Date: 02/17/21 Stop Date: 02/24/21 Status: Ordered Valium 5 mg oral tablet 5 mg, 1, tablet, By Mouth, faculty i on call medical assistant to Procedure, May need to repeat!, # 2 tablet, Refills 0, Tot. Refills 0, Maintenance, 06/25/21 10:29:00 EST, Route to Pharmacy Electronically, [facility]#[id number], Partial fill upon patient request if the pr... Start Date: 06/25/21 Status: Ordered Vivelle-Dot 0.1 mg/24 hours twice weekly transdermal film, extended release See Instructions, Place 1 patch on day 1-4 then 2 patches on day 5-10 and then 4 patches on day 11-14 changing patches QOD., # 8 patch, 1 Refills, Maintenance, 06/10/21 14:42:00 EST, [facility] #[id number], Partial fill upon patient request if t... [...]
--- OUTSIDE RECORDS SUMMARY | 2024-04-10 10:58 | XMS_ITS | Continuity of Care Document ---
Author Organization [facility] Medicine Address [address] [facility], 4t [address] [place] [address]- Care Team Providers Care Plant Utilities Engineer Name Role Phone Mason Rinaldi MD Primary Care Physician Encounter [facility] [place] Date(s): 06/10/20 - 07/10/20 [facility] [address] [facility], 4th [address] [place] [address]- Allergies, Adverse Reactions, Alerts Substance Reaction Severity [...] each, 0 Refills, Maintenance, 05/09/20 7:54:00 EDT, [facility], 158, cm, 05/02/20 14:32:00 EDT, Height, 88.2, kg, 01/09/19 16:14:00 EDT, Dry Weight Start Date: 05/09/20 Status: Ordered Folbic oral tablet 1 tablet, By Mouth, Daily, # 30 tablet, 11 Refills, Maintenance, 07/05/20 10:24:00 EST, [facility] #[id number], Partial fill upon patient request if the prescription is for a schedule II opioid drug., 1 tablet By Mouth Daily, 158, cm, 05/02/20 14... Start Date: 07/05/20 Status: Ordered metFORMIN 500 mg oral tablet, extended release 3 tablet = 1,500 mg, By Mouth, Daily, with evening meal, # 90 tablet, 11 Refills, Maintenance, 01/31/20 11:39:00 EDT, [facility] #[id number], 158, cm, 01/29/20 13:44:00 EDT, Height, 88.2, [...] 05/31/20 15:20:00 EST, Route to Pharmacy Electronically, [facility] #[id number], Partial fill upon patient request, 158, cm, [...] 6 Refills, Maintenance, 02/05/20 15:13:00 EDT, Tablet, [facility] #[id number], 158, cm, 01/29/20 13:44:00 EDT, Height, 88.2, kg, 01/09/19 16:14:00 EDT, Dry Weight Start Date: 02/05/20 Status: Ordered Zofran 8 mg oral tablet 1 tablet = 8 mg, By Mouth, Every 8 hours, PRN Nausea & Vomiting, # 10 tablet, 0 Refills, Maintenance, 05/31/20 11:44:00 EST, Tablet, [facility] #[id number], Partial fill upon patient request, 158, cm, [...]
--- OUTSIDE RECORDS SUMMARY | 2024-04-10 10:58 | XMS_ITS | Continuity of Care Document ---
Author Organization [facility] Ever nbackstitchs [facility] Address [address] [place] [address], 4t [place] [address]- Care Team Providers Care Manager Employment Name Role Phone Kaylah SNOW, Mariposa Cassidy Primary Care Physician [facility] [facility] [id number] Date(s): 02/06/22 - 02/22/22 [facility] [address] [facility], 4th [place] [address]- Attending Physician: Yong REYES, Sofía Staley Allergies, [...] 08/26/21 11:37:00 EST, Route to Pharmacy Electronically, [facility] #[id number], Partial fill upon patient request if the prescription is for a schedule II opioi... Start Date: 08/26/21 Status: Ordered bisacodyl 10 mg rectal suppository 1 supp = 10 mg, Rectally, Daily, PRN for constipation, # 10 supp, 0 Refills, Maintenance, 08/10/21 18:57:00 EST, Suppository, [facility]/pharmacy #[id number], Partial fill upon patient request [...] 3 Refills, Maintenance, 06/26/21 16:54:00 EST, Tablet, [facility] #[id number], Partial fill upon patient request if the [...] 60each, 3 Refills, Maintenance, 02/18/22 11:08:00 EDT, [facility] #[id number], Partial fill uponpatient request if the prescription [...] 1 Refills, Maintenance, 08/10/21 18:58:00 EST, Tablet, [facility]/pharmacy #[id number], Partial fill upon patient request if the prescription is for a schedule II opioid drug., 158, cm,... Start Date: 08/10/21 Status: Ordered Zofran 8 mg oral tablet 1 tablet = 8 mg, By Mouth, 2 times a day, # 20 tablet, 0 Refills, Acute 08/27/22 11:32:00 EST, 08/26/21 11:31:00 EST, Tablet, [facility] #[id number], Partial fill upon patient request if the [...]
--- OUTSIDE RECORDS SUMMARY | 2024-04-10 10:58 | XMS_ITS | Continuity of Care Document ---
Author Organization [facility] Leighton Datical [employer] [facility] Address [address] [place] [address], 4t [place] [address]- Care Team Providers Care Papeterie Table Assembler Name Role Phone Kaylah SNOW, Mariposa M [id number]/20[facility] - 09[facility]30/23 [facility] [address] [place] [address], [address] [place], [place] [address] Attending Physician: Not on Staff, Attending MD Referring Physician: German REYES , Anival Duarte Allergies, Adverse Reactions, Alerts Substance Reaction Severity [...] 2 Refills, Maintenance, 09/17/23 15:00:00 EST, Tablet, [facility] #[id number], Partial fill upon patient request if the [...] Team Personnel Name: Vidya Lobo RN Position: [facility] RN Member Role: Primary Care Nurse Name: Joy Herron RN Position: S RN Member Role: Primary Care Nurse Name: Mariposa Adrian NP Position: Reference Physician Member Role: PCP Address: Address: [address] [place] [address]- Care Team Related Persons Name: POLO MANRIQUEZ Address: home [address] [place] [address] Name: MAGUI MANRIQUEZ Address: [address] Address: home [address] [place] [address] Name: ALCIDES WARNER Address: [address] [address]
--- OUTSIDE RECORDS SUMMARY | 2024-04-10 10:59 | XMS_ITS | Continuity of Care Document ---
Author Organization [facility] Leighton [employer] Address [address] [place] [address], 4[address] [place] [address]- Care Team Providers Care Retail Sales Lead Name Role Phone Kaylah SNOW, Mariposa Cassidy Primary Care Physician [id number] Date[facility] 02/06/22 - 04/25/22 [facility] [address] [facility], 4th [place], [place] [address] Attending Physician: Yong REYES, Sofía Staley [...] 0 Refills, Maintenance, 03/05/22 22:26:00 EDT, Capsule, [facility][id number], Partial fill upon patient request if the prescription is for a schedule II opioid drLeslie. Start Date: 03/05/22 Status: Ordered aspirin 81 mg oral tablet, chewable 162 mg, 2, tablet, Chew, Daily, # 60 tablet, Refills 8, Tot. Refills 8, Maintenance, 08/26/21 11:37:00 EST, Route to Pharmacy Electronically, [facility][id number], Partial fill upon patient request if the prescription is for a schedule II opioi... Start Date: 08/26/21 Status: Ordered Colace sodium 100 mg oral capsule 100 mg, 1, capsule, By Mouth, 2 times a day, PRN, # 20 capsule, Refills 0, Tot. Refills 0, Maintenance, for constipation, 03/05/22 22:26:00 EDT, Route to Pharmacy Electronically, [facility][id number], Partial fill upon patient request if the pr... Start Date: 03/05/22 Status: Ordered ibuprofen 600 mg oral tablet 600 mg, 1, tablet, By Mouth, Every 6 hours, # 50 tablet, Refills 0, Tot. Refills 0, Maintenance, 03/05/22 22:26:00 EDT, Route to Pharmacy Electronically, [facility][id number], Partial fill upon patient request if the [...] 0 Refills, Soft Stop, 04/09/22 10:41:00 EDT, [facility], Partial fill upon patient request if the prescription is for a schedule II opioid drug., 158, cm, 03/19/22 15:29:00 EDT, Height, 90... Start Date: 04/09/22 Status: Ordered oxyCODONE 5 mg oral tablet 10 mg, 2, tablet, By Mouth, Every 6 hours, PRN, # 12 tablet, Refills 0, Tot. Refills 0, Maintenance, for pain, 03/05/22 22:26:00 EDT, Route to Pharmacy Electronically, [facility][id number], Partial fill upon patient request if the [...] 0 Refills, Maintenance, 03/05/22 22:26:00 EDT,Chew Tablet, [facility] #[id number], Partial fill upon patient request if the prescription is for a schedule II opioid drug., 158, cm, 03/05/22 20... Start Date: 03/05/22 Status: Ordered Zoloft 25 mg oral tablet 1 tablet = 25 mg, By Mouth, Daily, 1 tablet orally daily x1 week, then increase to 2 tablets a day,# 30 tablet, 0 Refills, Maintenance, 04/10/22 11:20:00 EDT, Tablet, [facility] #[id number], Partial fill upon patient request if the [...] Personnel Name: Mariposa Adrian NP Address: Address: [address] [place] [id number]
--- OUTSIDE RECORDS SUMMARY | 2024-04-10 10:59 | XMS_ITS | Continuity of Care Document ---
Author Organization [facility] Address [address] [facility], 4t h Floor [address] [place] [address]- Care Team Providers Care Diesel Plant Operator Name Role Phone Mason Rinaldi MD Primary Care Physician Encounter [facility] Date(s): 06/27/19 - 07/29/19 [facility] [address], 4th [address] [place] [address]- [facility] Attending Physician: Deidra Luong MD Allergies, Adverse Reactions, Alerts Substance Reaction Severity Status codeine red itchy Active aspirin red itchy Active morphine Active shellfish throat swells Active Adhesive Bandage 1 Active 1rash Immunizations Given and Recorded Vaccine Date Status Refusal Reason tetanus/diphtheria/pertussis, acel(Tdap) 1 08/02/12 Given 1Admin Note: VIS given, 08/11/2011 Medications omeprazole 20 mg oral enteric coated capsule [...]
--- OUTSIDE RECORDS SUMMARY | 2024-04-10 10:59 | XMS_ITS | Continuity of Care Document ---
Author Organization [facility] Address [address] [place] [address]- Care Team Providers Care Facilities Administrator Name Role Phone Mason Rinaldi MD Primary Care Physician En[place] [facility] Date(s): 08/10/19 - 09/10/19 [facility] [address] [place] [address] Attending Physician: New Jara MD Admitting Physician: New Jara MD Allergies, Adverse Reactions, Alerts Substance Reaction [...] Refills, Maintenance, 08/01/19 12:52:00 EST,[facility] [address] [place] [address], 1 tablet By Mouth Daily,... Start Date: [...] Weight Start Date: 08/02/19 Status: Ordered levothyroxine 125 mcg (0.125 mg) oral tablet 1 tablet = 125 mcg, By Mouth, Daily, # 60 tablet, 0 Refills, Maintenance, 08/14/19 9:34:00 EST, Tablet, [facility] - [address], 158, cm, 08/14/19 9:22:00 EST, Height, 88.2, kg, 01/09/19 16:14:00 EDT, Dry Weight Start Date: 08/14/19 Status: Ordered Menopur 75 intl units subcutaneous [...]
--- OUTSIDE RECORDS SUMMARY | 2024-04-10 10:59 | XMS_ITS | Continuity of Care Document ---
Author Organization [facility] Address [address] [place] [address]- Care Team Providers Care Mathematical Sciences Professor Name Role Phone Kaylah SNOW, Mariposa Cassidy Primary Care Physician [place] [facility] [place] [id number] Date(s): 03/04/22 - 03/06/[address] [address] Discharge Disposition: A-D/C Home Attending Physician: Mary Herrera MD Admitting Physician: Mary Herrera MD Referring Physician: Mary [...] 0 Refills, Maintenance, 03/05/22 22:26:00 EDT, Capsule, [facility] #[id number], Partial fill upon patient request if the prescription is for a schedule II opioid . Start Date: 03/05/22 Status: Ordered Acetaminophen Tablet 650 mg, Tablet, By Mouth, (1-3), may give 325mg per patient preference and re- dose with 325mg within 4 hours if needed. Patient should only receive a total of 650mg of Acetaminophen every 4 hours., 03/06/22 11:00:00 EDT Start Date: 03/06/22 Stop Date: 03/06/22 Status: Completed aspirin 81 mg oral tablet, chewable 162 mg, 2, tablet, Chew, Daily, # 60 tablet, Refills 8, Tot. Refills 8, Maintenance, 08/26/21 11:37:00 EST, Route to Pharmacy Electronically, [facility] #[id number], Partial fill upon patient request if the prescription is for a schedule II opioi... Start Date: 08/26/21 Status: Ordered Colace sodium 100 mg oral capsule 100 mg, 1, capsule, By Mouth, 2 times a day, PRN, # 20 capsule, Refills 0, Tot. Refills 0, Maintenance, for constipation, 03/05/22 22:26:00 EDT, Route to Pharmacy Electronically, [facility]#[id number], Partial fill upon patient request if the pr... Start Date: 03/05/22 Status: Ordered ibuprofen 600 mg oral tablet 600 mg, 1, tablet, By Mouth, Every 6 hours, # 50 tablet, Refills 0, Tot. Refills 0, Maintenance, 03/05/22 22:26:00 EDT, Route to Pharmacy Electronically, [facility] #[id number], Partial fill upon patient request if the prescription is for a sched... Start Date: 03/05/22 Status: Ordered Ibuprofen Tablet 800 mg, Tablet, By Mouth, (4-6), may give 400mg per patient preference and re- dose with 400mg within 8 hours if needed. Patient should only receive a total of 800mg of Ibuprofen every 8 hours., 03/05/22 15:00:00 EDT Start Date: 03/05/22 Stop Date: 03/06/22 Status: Completed levothyroxine 175 mcg (0.175 mg) oral tablet [...] 03/05/22 22:26:00 EDT, Route to Pharmacy Electronically, [facility] #[id number], Partial fill upon patient request if the [...] 0 Refills, Maintenance, 03/05/22 22:26:00 EDT,Chew Tablet, [facility] #[id number], Partial fill upon patient request if the [...] scar from previous c esarean delivery(Confirmed) Active Procedures Procedure Date Related Diagnosis Body Site Status delivery only; 03/04/22 C ompleted Vital Signs Most recent to oldest [Reference Range]: 1 2 3 Height 158 cm (03/06/22 7:45 AM) 158 cm (03/06/22 4:00 AM) 158 cm (03/06/22 12:00 AM) Weight 90 kg (03/04/22 10:44 AM) Oxygen Saturation [94-100 %] 97 % (03/06/22 7:45 AM) 98 % (03/06/22 4:00 AM) 100 % (03/06/22 12:00 AM) Pulse Rate [55-90 bpm] 74 bpm (03/06/22 7:45 AM) 68 bpm (03/06/22 4:00 AM) 80 bpm (03/06/22 12:00 AM) Body Mass Index [18.5-24.99] 36.05 *>HHI* (03/04/22 10:44 AM) Blood Pressure [90-138/55-84 mm Hg] 121/63mm Hg (03/06/22 7:45 AM) 98/70mm Hg (03/06/22 4:00 AM) 117/78mm Hg (03/06/22 12:00 AM) Respiratory Rate [16-30 br/min] 20 br/min (03/06/22 12:02 PM) 20 br/min (03/06/22 12:01 PM) 20 br/min (03/06/22 7:45 AM) Temperature [96.8-100.4 DegF] 97.5 DegF (03/06/22 7:45 AM) 97.8 DegF (03/06/22 4:00 AM) 98.9 DegF (03/06/22 12:00 AM) Mode of Delivery (Oxygen) Room air (03/06/22 4:00 AM) Room air (03/06/22 12:00 AM) Room air (03/05/22 8:00 PM) Blood pressure sites Arm, right (03/06/22 4:00 AM) Arm, right (03/06/22 12:00 AM) Arm, right (03/05/22 8:00 PM) Temperature Route Oral (03/06/22 7:45 AM) Oral (03/06/22 4:00 AM) Oral (03/06/22 12:00 AM) Dry Weight 90 kg (03/04/22 10:44 AM) Social History Social History Type Response Smoking Status Never (less than 100 in lifetime) entered on: 08/25/21 Sex
--- OUTSIDE RECORDS SUMMARY | 2024-04-10 10:59 | XMS_ITS | Continuity of Care Document ---
Author Organization [facility] Leighton [employer] Address [address] [place] [address], 4[address] [place] [address]- Care Team Providers Care Nuclear Medicine Officer Name Role Phone Kaylah SNOW, Mariposa Cassidy Primary [id number] 08/16/23 - 09/15/23 [facility] [address] [facility], 4th [place] [address]- Allergies, Adverse Reactions, Alerts Substance Reaction Severity [...] 0 Refills, Maintenance, 03/05/22 22:26:00 EDT, Capsule, [facility] #[id number], Partial fill upon patient request if the prescription is for a schedule II opioid dr... Start Date: 03/05/22 Status: Ordered aspirin 81 mg oral tablet, chewable 162 mg, 2, tablet, Chew, Daily, # 60 tablet, Refills 8, Tot. Refills 8, Maintenance, 08/26/21 11:37:00 EST, Route to Pharmacy Electronically, [facility] #[id number], Partial fill upon patient request if the prescription is for a schedule II opioi... Start Date: 08/26/21 Status: Ordered Colace sodium 100 mg oral capsule 100 mg, 1, capsule, By Mouth, 2 times a day, PRN, # 20 capsule, Refills 0, Tot. Refills 0, Maintenance, for constipation, 03/05/22 22:26:00 EDT, Route to Pharmacy Electronically, [facility]#[id number], Partial fill upon patient request if the pr... Start Date: 03/05/22 Status: Ordered ibuprofen 600 mg oral tablet 600 mg, 1, tablet, By Mouth, Every 6 hours, # 50 tablet, Refills 0, Tot. Refills 0, Maintenance, 03/05/22 22:26:00 EDT, Route to Pharmacy Electronically, [facility] #[id number], Partial fill upon patient request if the prescription is for a sched... Start Date: 03/05/22 Status: Ordered levothyroxine 150 mcg (0.15 mg) oral tablet 1 tablet = 150 mcg, By Mouth, Daily, # 30 tablet, 11 Refills, Maintenance, 08/21/22 11:04:00 EST, Tablet, [facility] #[id number], Partial fill upon patient request if the prescription is for a schedule II opioid drug., 158, cm, 04/10/22 11:14:00... Start Date: 08/21/22 Status: Ordered Mirena 52 mg intrauterine device 1 each = 52 mg, Intrauterine, Once, # 1 each, 0 Refills, Soft Stop, 04/09/22 10:41:00 EDT, [facility], Partial fill upon patient request if the prescription is for a schedule II opioid drug., 158, cm, 03/19/22 15:29:00 EDT, Height, 90... Start Date: 04/09/22 Status: Ordered oxyCODONE 5 mg oral tablet 10 mg, 2, tablet, By Mouth, Every 6 hours, PRN, # 12 tablet, Refills 0, Tot. Refills 0, Maintenance, for pain, 03/05/22 22:26:00 EDT, Route to Pharmacy Electronically, [facility] #[id number], Partial fill upon patient request if [...] 0 Refills, Maintenance, 03/05/22 22:26:00 EDT,Chew Tablet, [facility] #[id number], Partial fill upon patient request if the prescription is for a schedule II opioid drug., 158, cm, 03/05/22 20... Start Date: 03/05/22 Status: Ordered Zoloft 25 mg oral tablet 1 tablet = 25 mg, By Mouth, Daily, 1 tablet orally daily x1 week, then increase to 2 tablets a day,# 30 tablet, 0 Refills, Maintenance, 04/10/22 11:20:00 EDT, Tablet, [facility] #[id number], Partial fill upon patient request if the [...] Reference Physician Member Role: PCP Address: Address: [address] [place] [address]- Care Team Related Persons Name: POLO MANRIQUEZ Address: home [address] [place] [address] Name: MANRIQUEZ MAGUI Address: [address] Address: home [address] [place] [address] Name: ALCIDES WARNER Address: [address] [place] [address]
--- OUTSIDE RECORDS SUMMARY | 2024-04-10 10:59 | XMS_ITS | Continuity of Care Document ---
Author Organization [facility] Address [address] [facility], 4t [address] [place] [address]- Care Team Providers Care Retail Custodial Associate Name Role Phone Mason Rinaldi MD Primary Care Physician En[place] [facility] Date(s): 05/29/20 - 06/28/20 [facility] [address], 4th [address] [place] [address]- Allergies, Adverse Reactions, Alerts Substance Reaction Severity [...] each, 0 Refills, Maintenance, 05/09/20 7:54:00 EDT, [facility], 158, cm, 05/02/20 14:32:00 EDT, Height, 88.2, kg, 01/09/19 16:14:00 EDT, Dry Weight Start Date: 05/09/20 Status: Ordered metFORMIN 500 mg oral tablet, extended release 3 tablet = 1,500 mg, By Mouth, Daily, with evening meal, # 90 tablet, 11 Refills, Maintenance, 01/31/20 11:39:00 EDT, [email or web address] #[id number], 158, cm, 01/29/20 13:44:00 EDT, Height, 88.2, [...] 05/31/20 15:20:00 EST, Route to Pharmacy Electronically, [email or web address] #[id number], Partial fill upon patient request, 158, cm, [...] 6 Refills, Maintenance, 02/05/20 15:13:00 EDT, Tablet, [email or web address] #[id number], 158, cm, 01/29/20 13:44:00 EDT, Height, 88.2, kg, 01/09/19 16:14:00 EDT, Dry Weight Start Date: 02/05/20 Status: Ordered Zofran 8 mg oral tablet 1 tablet = 8 mg, By Mouth, Every 8 hours, PRN Nausea & Vomiting, # 10 tablet, 0 Refills, Maintenance, 05/31/20 11:44:00 EST, Tablet, [email or web address] #[id number], Partial fill upon patient request, 158, cm, [...]
--- OUTSIDE RECORDS SUMMARY | 2024-04-10 10:59 | XMS_ITS | Continuity of Care Document ---
Author Organization [facility] Address [address] [place] [address]- Care Team Providers Care Stock Holder Name Role Phone Kaylah SNOW, Mariposa Cassidy Primary Care Physician Encounter [facility] Date(s): 02/10/22 - 03/12/22 [facility] [address] [place] [address] Allergies, Adverse Reactions, [...] 0 Refills, Maintenance, 03/05/22 22:26:00 EDT, Capsule, [facility] #[id number], Partial fill upon patient request if the prescription is for a schedule II opioid dr... Start Date: 03/05/22 Status: Ordered aspirin 81 mg oral tablet, chewable 162 mg, 2, tablet, Chew, Daily, # 60 tablet, Refills 8, Tot. Refills 8, Maintenance, 08/26/21 11:37:00 EST, Route to Pharmacy Electronically, [facility] #[id number], Partial fill upon patient request if the prescription is for a schedule II opioi... Start Date: 08/26/21 Status: Ordered Colace sodium 100 mg oral capsule 100 mg, 1, capsule, By Mouth, 2 times a day, PRN, # 20 capsule, Refills 0, Tot. Refills 0, Maintenance, for constipation, 03/05/22 22:26:00 EDT, Route to Pharmacy Electronically, [facility][id number], Partial fill upon patient request if the pr... Start Date: 03/05/22 Status: Ordered ibuprofen 600 mg oral tablet 600 mg, 1, tablet, By Mouth, Every 6 hours, # 50 tablet, Refills 0, Tot. Refills 0, Maintenance, 03/05/22 22:26:00 EDT, Route to Pharmacy Electronically, [facility] #[id number], Partial fill upon patient request if the [...] 03/05/22 22:26:00 EDT, Route to Pharmacy Electronically, [facility] #[id number], Partial fill upon patient request if the [...] 0 Refills, Maintenance, 03/05/22 22:26:00 EDT,Chew Tablet, [facility] #[id number], Partial fill upon patient request if the [...] Personnel Name: Mariposa Adrian NP Address: [address] [place], [place] [address]
--- OUTSIDE RECORDS SUMMARY | 2024-04-10 10:59 | XMS_ITS | Continuity of Care Document ---
Author Organization [facility] [email or web address] [facility] Address [address] [place] [address], 4t [place] [address]- Care Team Providers Care Top Taper Machine Name Role Phone Kaylah SNOW, Mariposa Cassidy Primary Care Physician [phone] [id number] Date(s): 12/05/21 - 04/04/22 [facility] [address] [place] [address], [address] [place] [address]- Attending Physician: Mary Herrera MD Referring Physician: [...] 0 Refills, Maintenance, 03/05/22 22:26:00 EDT, Capsule, [facility][id number], Partial fill upon patient request if the prescription is for a schedule II opioid . Start Date: 03/05/22 Status: Ordered aspirin 81 mg oral tablet, chewable 162 mg, 2, tablet, Chew, Daily, # 60 tablet, Refills 8, Tot. Refills 8, Maintenance, 08/26/21 11:37:00 EST, Route to Pharmacy Electronically, [facility] #[id number], Partial fill upon patient request if the prescription is for a schedule II opioi... Start Date: 08/26/21 Status: Ordered Colace sodium 100 mg oral capsule 100 mg, 1, capsule, By Mouth, 2 times a day, PRN, # 20 capsule, Refills 0, Tot. Refills 0, Maintenance, for constipation, 03/05/22 22:26:00 EDT, Route to Pharmacy Electronically, [facility][id number], Partial fill upon patient request if the pr... Start Date: 03/05/22 Status: Ordered ibuprofen 600 mg oral tablet 600 mg, 1, tablet, By Mouth, Every 6 hours, # 50 tablet, Refills 0, Tot. Refills 0, Maintenance, 03/05/22 22:26:00 EDT, Route to Pharmacy Electronically, [facility] #[id number], Partial fill upon patient request if the [...] 03/05/22 22:26:00 EDT, Route to Pharmacy Electronically, [facility][id number], Partial fill upon patient request if the [...] 0 Refills, Maintenance, 03/05/22 22:26:00 EDT,[facility]w [id number], Partial fill upon patient request if the [...] Team Personnel Name: Mariposa Adrian NP Address: [address] [place] [address]
--- OUTSIDE RECORDS SUMMARY | 2024-04-10 10:59 | XMS_ITS | Continuity of Care Document ---
Author Organization [facility] [place] [email or web address] Address [address] [place] [address], [address] [place] [address]- Care Team Providers Care Plate Filler Name Role Phone Kaylah SNOW, Mariposa Cassidy Primary Care Physician [phone] [id number] Date(s): 11/28/21 - 12/05/21 [facility] [address] [facility] [place], [place] [address] Attending Physician: Yong REYES, Sofía [...] 08/26/21 11:37:00 EST, Route to Pharmacy Electronically, [facility][id number], Partial fill upon patient request if the prescription is for a schedule II opioi... Start Date: 08/26/21 Status: Ordered bisacodyl 10 mg rectal suppository 1 supp = 10 mg, Rectally, Daily, PRN for constipation, # 10 supp, 0 Refills, Maintenance, 08/10/21 18:57:00 EST, Suppository, [facility]/pharmacy #[id number], Partial fill upon patient request if the prescriptionis for a schedule II opioid drug., 158, cm, ... Start Date: 08/10/21 Status: Ordered clotrimazole 1% topical cream 1 application, Topically, 2 times a day, # 15 Gm, 0 Refills, Maintenance, 10/03/21 9:22:00 EDT, Cream, [facility]/pharmacy #[id number], Partial fill upon [...] 10/21/21 13:22:00 EDT, Route to Pharmacy Electronically, [facility] #[id number], Partial fill upon patient request if the [...] Refills, Maintenance, 08/26/21 11:31:00 EST, CR Tablet, [facility] #[id number], Partial fill upon patient request if the [...] patch, 5 Refills, Maintenance, 06/09/21 18:36:00 EST, [facility] #[id number], Partial fill upon patient request if the prescription is for a schedule II opioid drug., 1 patch Topically, 158, cm, 12/06/20 8... Start Date: 06/09/21 Status: Ordered folic acid 0.4 mg oral tablet 1 tablet = 0.4 mg, By Mouth, Daily, # 100 tablet, 3 Refills, Maintenance, 06/26/21 16:54:00 EST, Tablet, [facility] #[id number], Partial fill upon patient request if the [...] 1 Refills, Maintenance, 08/10/21 18:58:00 EST, Tablet, [facility]/pharmacy #[id number], Partial fill upon patient request if the [...] patch, 1 Refills, Maintenance, 06/10/21 14:42:00 EST, [facility] #[id number], Partial fill upon patient request if t... Start Date: 06/10/21 Status: Ordered Zofran 4 mg oral tablet 1 tablet = 4 mg, By Mouth, Every 8 hours, PRN as needed for nausea/vomiting, # 20 tablet, 0 Refills, Maintenance, 08/05/21 17:23:00 EST, Tablet, [facility] #[id number], Partial fill upon patientrequest if the prescription is for a schedule II op... Start Date: 08/05/21 Status: Ordered Zofran 8 mg oral tablet 1 tablet = 8 mg, By Mouth, 2 times a day, # 20 tablet, 0 Refills, Acute 08/27/22 11:32:00 EST, 08/26/21 11:31:00 EST, Tablet, [facility] #[id number], Partial fill upon patient request if the [...]
--- OUTSIDE RECORDS SUMMARY | 2024-04-10 10:59 | XMS_ITS | Continuity of Care Document ---
Author Organization [facility] Address [address], [address] [place] [address]- Care Team Providers Care Cake Washer Name Role Phone Mason Rinaldi MD Primary Care Physician Encounter [facility] Date(s): 05/31/20 - 06/30/20 [facility] [address], 4[address] [place] [address]- Allergies, Adverse Reactions, Alerts Substance Reaction Severity [...] each, 0 Refills, Maintenance, 05/09/20 7:54:00 EDT, [facility], 158, cm, 05/02/20 14:32:00 EDT, Height, 88.2, kg, 01/09/19 16:14:00 EDT, Dry Weight Start Date: 05/09/20 Status: Ordered metFORMIN 500 mg oral tablet, extended release 3 tablet = 1,500 mg, By Mouth, Daily, with evening meal, # 90 tablet, 11 Refills, Maintenance, 01/31/20 11:39:00 EDT, [facility] #[id number], 158, cm, 01/29/20 13:44:00 EDT, Height, 88.2, [...] 05/31/20 15:20:00 EST, Route to Pharmacy Electronically, [facility] #[id number], Partial fill upon patient request, 158, cm, [...] 6 Refills, Maintenance, 02/05/20 15:13:00 EDT, Tablet, [facility] #[id number], 158, cm, 01/29/20 13:44:00 EDT, Height, 88.2, kg, 01/09/19 16:14:00 EDT, Dry Weight Start Date: 02/05/20 Status: Ordered Zofran 8 mg oral tablet 1 tablet = 8 mg, By Mouth, Every 8 hours, PRN Nausea & Vomiting, # 10 tablet, 0 Refills, Maintenance, 05/31/20 11:44:00 EST, Tablet, [facility] #[id number], Partial fill upon patient request, 158, cm, [...]
--- OUTSIDE RECORDS SUMMARY | 2024-04-10 10:59 | XMS_ITS | Continuity of Care Document ---
Author Organization [facility] Address [address], 4[address] [place] [address]- Care Team Providers Care Life Skills Consultant Name Role Phone Not on Staff, PCP Primary Care Physician Unavail able Encounter [facility] Date(s): 01/17/20 - 03/02/20 [facility] [address] 4th [address] [place] [address] [facility] Attending Physician: Not on Staff, Attending MD Referring Physician: Deidra Luong MD
[2024-04-10 11:13] VITALS: BP 108/70; PULSE 78; O2SAT 98; BMI 37.2
--- NOTE | 2024-04-10 11:13 | AM.OFFWIN_ITS ---
Intake Vital Signs 04/10/24 11:13 Height 5 ft 0.71 in Weight 195 lb BMI 37.2 BP 108/70 Blood Pressure Location Rt brachial Position Sitting Pulse 78 Pulse Source Pulse Oximeter Pulse Oximetry (%) 98 Oxygen Delivery Method Room Air Intake Visit Reasons: EP Back pain Patient Tobacco Use Status: Never used Tobacco Allergies morphine [MORPHINE] Allergy (Severe, Verified 04/10/24 11:15) CHEST PRESSURE AND TIGHTNESS aspirin [ASPIRIN] Allergy (Intermediate, Verified 04/10/24 11:15) RASH, redness and itching codeine [CODEINE] Allergy (Intermediate, Verified 04/10/24 11:15) RASH, redness and itching ibuprofen [From Motrin] Allergy (Intermediate, Verified 04/10/24 11:15) Hives shellfish derived [SHELLFISH DERIVED] Allergy (Intermediate, Verified 04/10/24 11:15) RED/ITCH STERI-STRIP ADHESIVE Allergy (Intermediate, Uncoded 04/10/24 11:15) RASH HPI HPI Comments History of Present Illness Details Patient is a 39-year-old female complaining of low back pain and sharp shooting pain that goes down her buttocks into both of her legs. She denies any loss of control of her bladder or bowels. She denies any injury, new mattress or new pillows. She has been taking Tylenol, Aleve, ibuprofen with no improvement in her symptoms. She states it is worse when she tries to bend over or when she tries to extend her legs out when she is sitting. She also states it is painful to stand up from a seated position or get out of bed. She states she has never had pain like this before. She denies any old injuries to her low back COUNT INCLUDES THE [facility] Medical History (Updated 04/10/24 @ 11:28 by Jannie Pugh PA-C) Ganglion cyst of dorsum of left wrist History of hypothyroidism Surgical History History of thyroidectomy History of appendectomy History of cholecystectomy History of section Family History Father Diabetes Hyperlipidemia Mother Diabetes Skin cancer Hyperlipidemia Asthma Brother Brain cancer Social History Household Members: Spouse and Children Housing: House Alcohol intake: never Patient Tobacco Use Status: Never used Tobacco e-Cigarette/Vaping Use: Never Used Second Hand Smoke Exposure: No service: No Current occupational status: employed 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 [employer] 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/hazards: No Sexual orientation: Straight/Heterosexual Gender identity: Female Cognitive needs: No Hearing needs: No Vision needs: No Review of Systems Const All systems reviewed & are unremarkable except as noted in HPI and below Physical Exam Vital Signs: Last Vital Signs Pulse 78 04/10/24 11:13 BP 108/70 04/10/24 11:13 Pulse Ox 98 04/10/24 11:13 Oxygen Delivery Method Room Air 04/10/24 11:13 BMI result Body Mass Index 37.2 Const General: cooperative, healthy appearing and well developed; No comfortable (Looks uncomfortable, in mild distress) Orientation/consciousness: patient oriented x3 Limitations: no limitations HEENT Head: Yes normal to inspection Ears: hearing grossly normal bilaterally General nose exam: Normal external nose present Face and sinus: Yes normal facial exam Eyes General: appearance normal, both eyes and all related structures Neck Neck: Yes normal visual inspection and Yes full ROM Resp Effort & Inspection: normal respiratory effort and able to speak in complete sentences Back/Spine/Pelvis Cervical Spine: cervical ROM normal and No Cervical spine tenderness Thoracic/Lumbar Spine: thoracic and lumbar spine normal to inspection, pain with thoraco-lumbar ROM, paraspinal muscle tenderness (lower back) bilaterally, No thoracic spinal tenderness, No lumbar spinal tenderness and straight leg raise positive bilateral Skin General skin exam: no rashes or lesions noted Neuro General: patient oriented x3 Extrem General: Yes normal to inspection Assessment & Plan Assessment & Plan (1) Low back pain with bilateral sciatica: Code(s): M54.42 - Lumbago with sciatica, left side; M54.41 - Lumbago with sciatica, right side Qualifiers: Back pain laterality: bilateral Chronicity: acute Qualified Code(s): M54.42 - Lumbago with sciatica, left side; M54.41 - Lumbago with sciatica, right side Plan: Vital signs are stable patient obviously in a fair amount of pain, gave her red flag warning signs and when to go to the emergency department, we will prescribe a burst of prednisone, reviewed risks and benefits of prednisone. Advised she can take Aleve with it as well as a muscle relaxer. If no improvement in her pain, she should follow up with her primary care doctor Plan see above Medications: New prednisone 40 mg (2 x 20 mg) PO DAILY 10 tabs 0RF cyclobenzaprine 5 mg PO tid PRN 10 tabs 0RF Muscle Spasm Coding Level of Care Code New Pt Level 3 (96096) Diagnoses Acute bilateral low back pain with bilateral sciatica M54.42; M54.41 Back pain laterality: bilateral Chronicity: acute
--- NOTE | 2024-04-10 11:13 | AM.OFFWIN_ITS ---
Intake Vital Signs 04/10/24 11:13 Height 5 ft 0.71 in Weight 195 lb BMI 37.2 BP 108/70 Blood Pressure Location Rt brachial Position Sitting Pulse 78 Pulse Source Pulse Oximeter Pulse Oximetry (%) 98 Oxygen Delivery Method Room Air Intake Visit Reasons: EP Back pain Intake Note: Patient here for mid back pain that radiates to the sides and bilat legs. she states it has been worsening over the past week. Denies any known injuries. Patient Tobacco Use Status: Never used Tobacco Allergies morphine [MORPHINE] Allergy (Severe, Verified 04/10/24 11:15) CHEST PRESSURE AND TIGHTNESS aspirin [ASPIRIN] Allergy (Intermediate, Verified 04/10/24 11:15) RASH, redness and itching codeine [CODEINE] Allergy (Intermediate, Verified 04/10/24 11:15) RASH, redness and itching ibuprofen [From Motrin] Allergy (Intermediate, Verified 04/10/24 11:15) Hives shellfish derived [SHELLFISH DERIVED] Allergy (Intermediate, Verified 04/10/24 11:15) RED/ITCH STERI-STRIP ADHESIVE Allergy (Intermediate, Uncoded 04/10/24 11:15) RASH Do you need a note to return to daycare/school/sports/work: Yes [facility] Medical History (Updated 04/10/24 @ 11:28 by Jannie Pugh PA-C) Ganglion cyst of dorsum of left wrist History of hypothyroidism Surgical History History of thyroidectomy History of appendectomy History of cholecystectomy History of section Family History Father Diabetes Hyperlipidemia Mother Diabetes Skin cancer Hyperlipidemia Asthma Brother Brain cancer Social History Household Members: Spouse and Children Housing: House Alcohol intake: never Patient Tobacco Use Status: Never used Tobacco e-Cigarette/Vaping Use: Never Used Second Hand Smoke Exposure: No service: No Current occupational status: employed 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
== END 2024-04-10 11:28 | disposition home or self-care (01) ==
PROVIDERS: PCP Physician Assistant Medical; Visit Provider Physician Assistant
DX: M54.42 Lumbago with sciatica, left side (principal); M54.41 Lumbago with sciatica, right side

== ENCOUNTER → 2024-04-10 10:46 | Outpatient (BNVA) | payer OTHER, SELFPAY | PROVIDERS: PCP Physician Assistant Medical | DX: M54.42 Lumbago with sciatica, left side (principal); M54.41 Lumbago with sciatica, right side ==

== ENCOUNTER 2024-04-27 14:52 | Outpatient (AMB) | payer OTHER, SELFPAY ==
--- NOTE | 2024-04-27 14:57 | A.OFFPC_ITS ---
Vital Signs 04/27/24 15:00 Height 5 ft 2 in Weight 1952 lb BMI 357.0 BP 134/72 Blood Pressure Location Rt brachial Position Sitting Respiration 15 Pulse 106 H Pulse Source Pulse Oximeter Temp 98.1 F Temp Source Oral Pulse Oximetry (%) 96 Oxygen Delivery Method Room Air Intake Visit Reasons: ThroatPain Intake Note: patient complaining of pain in her throat after taking two dayquil pills two weeks ago. Allergies morphine [MORPHINE] Allergy (Severe, Verified 04/27/24 14:59) CHEST PRESSURE AND TIGHTNESS aspirin [ASPIRIN] Allergy (Intermediate, Verified 04/27/24 14:59) RASH, redness and itching codeine [CODEINE] Allergy (Intermediate, Verified 04/27/24 14:59) RASH, redness and itching ibuprofen [From Motrin] Allergy (Intermediate, Verified 04/27/24 14:59) Hives shellfish derived [SHELLFISH DERIVED] Allergy (Intermediate, Verified 04/27/24 14:59) RED/ITCH STERI-STRIP ADHESIVE Allergy (Intermediate, Uncoded 04/10/24 11:15) RASH Tobacco use date assessed: 01/10/24 Dental Screening Dental Screen Date: 01/10/24 HPI HPI Comments History of Present Illness Details 39-year-old female with a past medical h istory of complex ovarian cysts, abnormal uterine bleeding, migraines, hypothyroidism and anxiety presents for evaluation of a sore throat. The patient has been sick for the past 3 weeks. She went to [facility] ED at the start of the illness. Patient says she tested negative for flu/COVID/RSV. Patient also reports they did a chest x-ray which was negative. She was diagnosed with a viral illness and asthma exacerbation. She was prescribed prednisone for 5 days and an albuterol inhaler. She is still coughing and having shortness of breath. No fevers, chills, chest pain or syncope. She is using albuterol every 2-4 hours with short term relief. Patient states the last time her asthma bothered her was 11 years ago also after a viral illness. Patient endorses a throat pain for the past 2 weeks. Patient says it feels like something is stuck in her throat. She recalls swallowing a DayQuil gel tab and feeling pain or like it did not go down all the way. Pain is a 6/10. Patient is not regurgitating liquid or solids, but she has to swallow slower and it is painful and it is better if she extends her neck to look up. It hurts to flex her neck. She has post thyroidectomy hypothyroidism treated with levothyroxine. ROS: Constitutional: No fevers or chills ENT: No ear pain, sinus pain or congestion, see HPI Respiratory: No sputum production or hemoptysis. See HPI. Cardiovascular: No chest pain Gastrointestinal: No anorexia, nausea, vomiting or diarrhea. Neurologic: No headache, dizziness, syncope Skin: No rash Physical exam: Constitutional: Alert, in no distress. No hoarseness. Eyes: Pupils are equal, round and reactive to light. Extraocular muscles intact. Ear, Nose and Throat: Canals clear. Bilateral TMs with small serous effusions. No sinus tenderness or nasal discharge. Tonsils 2+ and mildly erythematous. No tonsillar exudates. Tongue is partially covered in a whitish coating. Neck: Supple, Full range of motion. No lymphadenopathy. Patient very tender at the base of her neck in the middle. No palpable mass. Respiratory: Clear to auscultation. No stridor Cardiovascular: S1 S2 regular. No murmurs. Neurologic: No focal neurological deficits. Extremities: Warm and well perfused. No clubbing, cyanosis or edema. [facility] Medical History (Updated 04/27/24 @ 16:59 by JEOVANNY Casey) Asthma exacerbation Ganglion cyst of dorsum of left wrist History of hypothyroidism Surgical History History of thyroidectomy History of appendectomy History of cholecystectomy History of section Family History Father Diabetes Hyperlipidemia Mother Diabetes Skin cancer Hyperlipidemia Asthma Brother Brain cancer Social History Household Members: Spouse and Children Housing: House Alcohol intake: never Patient Tobacco Use Status: Never used Tobacco e-Cigarette/Vaping Use: Never Used Second Hand Smoke Exposure: No service: No Current occupational status: employed 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 Physical exam (Primary Care) Vital Signs: Last Vital Signs Temp 98.1 F 04/27/24 15:00 Pulse 106 H 04/27/24 15:00 Resp 15 04/27/24 15:00 BP 134/72 04/27/24 15:00 Pulse Ox 96 04/27/24 15:00 Oxygen Delivery Method Room Air 04/27/24 15:00 BMI result Body Mass Index 357.0 Tobacco/Smoking Status: Tobacco use Status Tobacco use date assessed 01/10/24 04/27/24 15:02 Patient Tobacco Use Status Never used Tobacco 04/27/24 15:02 e-Cigarette/Vaping Use Never Used 04/27/24 15:02 Thrive Assessment: Date of Thrive Assessment Date Thrive assessed 01/10/24 04/27/24 15:02 Results AMB Rapid Strep AMB Rapid Strep Negative Last Edit by Gallo Linn MA on 04/27/24 15:32 Results Reviewed Results Reviewed: Laboratory Last Values Strep Scn Rapid Clinic Negative 04/27/24 15:31 Coding Level of Care Code Est Pt Level 4 (88978) Complex EM visit Add On G2211 Diagnoses Oral thrush B37.0 Asthma exacerbation J45.901 Globus sensation R09.A2 Sore throat J02.9 Assessment & Plan Assessment & Plan (1) Oral thrush: Code(s): B37.0 - Candidal stomatitis (2) Asthma exacerbation: Code(s): J45.901 - Unspecified asthma with (acute) exacerbation (3) Globus sensation: Code(s): R09.A2 - Foreign body sensation, throat (4) Sore throat: Code(s): J02.9 - Acute pharyngitis, unspecified Plan Strep test negative. Patient afebrile. No exudates on exam. Records requested from [facility]. Ordered stat soft tissue x-ray of the neck for further evaluation of globus sensation. Recommended soft foods in the meantime. Advised patient if she develops worsening symptoms like hoarseness, visible swelling, fevers or chills or she is not able to swallow she needs to go to the emergency department. She has oral thrush on exam. We will treat with nystatin oral suspension. Due to albuterol requirement we will treat for asthma exacerbation with tapering course of prednisolone. Given liquid which will be easier to swallow. Side effects and administration reviewed. Follow up in 1 week for re-evaluation or sooner as needed. Orders: Orders AMB Rapid Strep Screen Today Z13.9 - Encounter for screening, unspecified XR soft tissue neck Today R09.A2 - Foreign body sensation, throat Medications: New nystatin swish in the mouth and retain for as long as possible (several minutes) before swallowing 500,000 units (5 mL) PO QID 200 mL 0RF 10 days prednisolone orally daily qam; Take 20 mL x 3 days, then take 13 mL x 3 days, then take 7 mL x 3 days, then stop 120 mL 0RF
[2024-04-27 15:00] VITALS: BP 134/72; PULSE 106; RESP 15; TEMP 36.7; O2SAT 96; BMI 357.0
== END 2024-04-27 15:30 | disposition home or self-care (01) ==
PROVIDERS: PCP Physician Assistant Medical; Visit Provider Physician Assistant Medical
DX: B37.0 Candidal stomatitis (principal); J45.901 Unspecified asthma with (acute) exacerbation; R09.A2 Foreign body sensation, throat; J02.9 Acute pharyngitis, unspecified

== ENCOUNTER 2024-04-27 15:54 | Outpatient (REF) | payer OTHER, SELFPAY ==
--- NOTE | ~2024-04-27 | MM_ITS ---
EXAMINATION: MM SCREENING DIGITAL BREAST TOMOSYNTHESIS, BILATERAL CLINICAL INFORMATION: Screening. Asymptomatic. COMPARISON: Mammography: Comparison is made with available priors TECHNIQUE: Digital breast mammography with tomosynthesis is performed in both the craniocaudal and mediolateral oblique views along with computer-aided detection (CAD). FINDINGS: There are scattered areas of fibroglandular density (ACR BI-RADS breast composition Category b). Left: Circumscribed oval mass upper outer breast posterior depth. No suspicious calcifications or other abnormal findings. Right: There are no significant masses, abnormal calcifications, or other abnormalities. MM/MM tomosynthesis screening BI IMPRESSION: Additional imaging is recommended ASSESSMENT: BI-RADS BI-RADS 0 - Incomplete: Needs additional Imaging. RECOMMENDATION: . Ultrasound of the left breast recommended at this time. . Radiology department staff will contact the patient for additional imaging. Additional Imaging required This examination should not preclude the clinical evaluation of a suspicious palpable abnormality. This patient's information was entered into a reminder system with a target due date for their next mammogram. Electronically signed by: Carmen Munoz DO 05/09/2024 12:14 PM EDT
--- NOTE | ~2024-04-27 | XR_ITS ---
EXAMINATION: XR SOFT TISSUE NECK CLINICAL INDICATION: Foreign body sensation, throat, pt. states lump in anterior area of neck COMPARISON: CT neck 11/01/2016 TECHNIQUE: AP and lateral views of the soft tissue neck were obtained. FINDINGS: Soft tissue films of the neck demonstrate a normal larynx, pharynx and upper trachea. Multiple surgical clips in the bilateral thyroid bed status post thyroidectomy, as before. No soft tissue swelling or opaque foreign body is demonstrated. Visualized lung apices are clear. XR/XR soft tissue neck IMPRESSION: No radiopaque foreign body identified. Electronically signed by: Christina Solitario DO 04/28/2024 11:33 AM EDT
== END 2024-04-27 15:55 | disposition home or self-care (01) ==
LOC: HO.MAMMO 15:54
PROVIDERS: PCP Nurse Practitioner Family; Visit Provider Physician Assistant Medical
DX: R09.02 Hypoxemia (principal); Z12.31 Encounter for screening mammogram for malignant neoplasm of breast; N63.21 Unspecified lump in the left breast, upper outer quadrant
CPT/HCPCS: 70360; 77063; 77067

== ENCOUNTER → 2024-04-27 16:00 | Outpatient (BNV) | payer OTHER, SELFPAY | PROVIDERS: PCP Nurse Practitioner Family; Visit Provider Internal Medicine | DX: Z12.31 Encounter for screening mammogram for malignant neoplasm of breast (principal) | CPT/HCPCS: 77063; 77067 ==

== ENCOUNTER 2024-06-09 08:46 | Outpatient (REF) | payer OTHER, SELFPAY ==
--- NOTE | ~2024-06-09 | MM_ITS ---
EXAMINATION: MM DIAGNOSTIC DIGITAL BREAST TOMOSYNTHESIS, LEFT Limited left breast ultrasound. CLINICAL INFORMATION: Call back from screening for oval mass in the upper outer left breast. COMPARISON: Mammography: Comparison is made with available priors. TECHNIQUE: Digital breast tomosynthesis is performed in both the craniocaudal and mediolateral oblique views along with computer-aided detection (CAD). Synthesized 2D images are generated from the tomosynthesis. Limited left breast ultrasound. FINDINGS: There are scattered areas of fibroglandular density (ACR BI-RADS breast composition Category b). Circumscribed oval mass in the upper outer breast measuring 12 mm persist on additional imaging projections. There are no other significant masses, abnormal calcifications, or other abnormalities. Targeted left breast ultrasound demonstrates an oval hypoechoic solid mass versus complicated cyst at 2:00 8 cm from the nipple measuring 10 x 7 x 12 mm which correlates with the circumscribed oval mass on mammography. There is no internal vascular flow. MM/MM tomosynthesis added views L IMPRESSION: Solid mass versus complicated cyst at 2:00 in the left breast on ultrasound. Recommend 6 month follow-up left breast ultrasound for further evaluation of stability. ASSESSMENT: BI-RADS BI-RADS 3 - Probably benign finding(s) - 6 month follow-up suggested RECOMMENDATION: 6 Month F/U Results were provided to the patient at time of visit by the technologist. This patient's information was entered into a reminder system with a target due date for their next mammogram. Electronically signed by: Carmen Munoz DO 06/09/2024 09:45 AM [facility]
== END 2024-06-09 08:47 | disposition home or self-care (01) ==
LOC: HO.MAMMO 08:46
PROVIDERS: PCP Physician Assistant Medical; Visit Provider Physician Assistant Medical
DX: N63.21 Unspecified lump in the left breast, upper outer quadrant (principal)
CPT/HCPCS: 76642; 77061; 77065

== ENCOUNTER → 2024-06-09 09:15 | Outpatient (BNV) | payer OTHER, SELFPAY | PROVIDERS: PCP Physician Assistant Medical; Visit Provider Internal Medicine | DX: N60.02 Solitary cyst of left breast (principal); R92.322 Mammographic fibroglandular density, left breast | CPT/HCPCS: 76642; 77061; 77065 ==

== ENCOUNTER 2024-11-28 12:28 | Outpatient (AMB) | payer OTHER, SELFPAY ==
--- NOTE | 2024-11-28 12:32 | MHC.PC.OV ---
Vital Signs 11/28/24 12:37 Height 5 ft 2 in Weight 200 lb BMI 36.6 BP 128/66 Blood Pressure Location Rt brachial Position Sitting Respiration 16 Pulse 67 Pulse Source Pulse Oximeter Temp 98.0 F Temp Source Oral Pulse Oximetry (%) 98 Oxygen Delivery Method Room Air Intake Visit Reasons: not feeling well Intake Note: patient here c/o for the past 2 weeks having pain on left breast, tired, dizziness and lost of appetite. 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 Is last menstrual period known: No Post menopausal: No Patient : No Allergies morphine [MORPHINE] Allergy (Severe, Verified 11/28/24 12:43) CHEST PRESSURE AND TIGHTNESS aspirin [ASPIRIN] Allergy (Intermediate, Verified 11/28/24 12:43) RASH, redness and itching codeine [CODEINE] Allergy (Intermediate, Verified 11/28/24 12:43) RASH, redness and itching ibuprofen [From Motrin] Allergy (Intermediate, Verified 11/28/24 12:43) Hives shellfish derived [SHELLFISH DERIVED] Allergy (Intermediate, Verified 11/28/24 12:43) RED/ITCH STERI-STRIP ADHESIVE Allergy (Intermediate, Uncoded 11/28/24 12:43) RASH Medication List - Last Reconciled 11/28/24 by Vibha Esparza CNP levothyroxine (Synthroid) 175 mcg PO DAILY Tobacco use date assessed: 11/28/24 Dental Screening Dental Screen Date: 11/28/24 Did you have a dental visit in the last 12 months?: Yes Did you have a dental problem in the last 6 months where you did not have access to dental care?: No Was dental information given to patient?: Patient has dentist HPI HPI Comments History of Present Illness Details 39-year-old female presents with complaints of persistent stabbing pain to her entire left breast for the past 2 weeks. The left breast is tender to touch or if her garment is rubs against it. The breast feels full/heavy, similar sensation like but she is not lactating. She denies lumps or trauma to the breast. She denies chest pain or shortness of breast. She also reports fatigue, weakness, nausea, dizziness, and loss of appetite for the past 2 weeks. She gained 5 lb since her last visit in February 2024. She denies bowel changes. She denies anxiety or depressive symptoms. She denies neck, jaw, shoulder, or back pain. She is on Synthroid 175 mcg daily, which she admits to taking as prescribed without adverse reactions. Her last TSH was elevated, 12.4 and free T4 was low, 0.68, here in 07/07/2023. She notes that she was followed by [facility] endocrinology and discharged to her PCP after her TSH/free t4 were normal a year ago. She had screening mammogram of both breasts and ultrasound of the left breast which revealed the following: IMPRESSION: Solid mass versus complicated cyst at 2:00 in the left breast on ultrasound. Recommend 6 month follow-up left breast ultrasound for further evaluation of stability. She notes that she has a follow up ultrasound of her left breast scheduled on 12/07/2024. [facility] Medical History (Updated 11/28/24 @ 13:09 by Vibha Esparza CNP) Asthma exacerbation Ganglion cyst of dorsum of left wrist History of hypothyroidism Surgical History History of thyroidectomy History of appendectomy History of cholecystectomy History of section Family History Father Diabetes Hyperlipidemia Mother Diabetes Skin cancer Hyperlipidemia Asthma Brother Brain cancer Social History Household Members: Spouse and Children Housing: House Alcohol intake: never Patient Tobacco Use Status: Never used Tobacco e-Cigarette/Vaping Use: Never Used Second Hand Smoke Exposure: No Patient : No service: No Current occupational status: employed 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 1. Little interest or pleasure in doing things: not at all 2. Feeling down, depressed, or hopeless: not at all 3. Trouble falling or staying asleep, or sleeping too much: several days 4. Feeling tired or having little energy: several days 5. Poor appetite or overeating: several days 6. Feeling bad about yourself - or that you are a failure or have let yourself or your family down: not at all 7. Trouble concentrating on things, such as reading the newspaper or watching television: not at all 8. Moving or speaking so slowly that other people could have noticed. Or the opposite - being so fidgety or restless that you have been moving around a lot more than usual: not at all 9. Thoughts that you would be better off or of hurting yourself in some way: not at all Total score: 3 Source: Developed by Drs. Ortega Alaniz, Gianna Carrion, Jeff Cardoso and colleagues, with an educational ismael from [employer]. Thrive Questionnaire Date Thrive assessed: 11/28/24 I am a: Patient What is your living situation today?: I have a steady place to live Within the past 12 months, did the food you bought not last and you didn't have the money to get more?: Never true Within the past 12 months, did you worry whether your food would run out before you got money to buy more?: Never true Do you have trouble paying for medicines?: No Do you have trouble getting transportation to medical appointments?: No Do you have trouble paying your heating and electricity bill?: No Do you have trouble taking care of your child, family member or friend?: No Do you have trouble with day-to-day activities such as bathing, preparing meals, shopping, managing finances, etc.?: No Are you currently unemployed and looking for a job?: No Are you interested in more education?: No Please select the resources that you would like help with: None Currently or been in a relationship where the following occur: No concerns reported THRIVE Score: 0 AUDIT C Alcohol Use Questionnaire (AUDIT-C) 1. How often do you have a drink containing alcohol?: Never Total Score: 0 JESUS ALBERTO-7 AMB Questionnaire JESUS ALBERTO-7 Date JESUS ALBERTO - 7 assessed: 01/10/24 Feeling nervous, anxious, or on edge: 0 = Not at all Not being able to stop or control worryin = Not at all Worrying too much about different things: 0 = Not at all Trouble relaxin = Several days Being so restless that it is hard to sit still: 1 = Several days Becoming easily annoyed or irritable: 1 = Several days Feeling afraid as if something awful might happen: 0 = Not at all Total JESUS ALBERTO-7 score (0-4 normal; 5-9 mild; 10-14 moderate; 15-21 severe): 3 Source: Developed by Drs. Ortega Alaniz, Gianna Carrion, Jeff Cardoso and colleagues, with an educational ismael from [employer]. Review of Systems Const Details: Const Denies chills, Reports fatigue, Denies fever(s), Denies headache(s) and Denies weakness ENT Reports dizziness and Denies headache(s) Card Denies chest pain, Denies lightheadedness, Denies dyspnea and Denies other (Palpitations) Resp Denies cough, Denies dyspnea, Denies wheezing and Denies other ( shortness of breath) GI Denies abdominal pain, Denies melena, Denies hematochezia, Denies change in bowel habits, Denies dyspepsia and Denies nausea Denies hematuria and Denies dysuria Musc Denies abnormal gait, Denies myalgias, Denies arthralgias, Denies numbness and Denies tingling Skin/Breast Reports left breast pain, Denies rash, Denies unusual bruising and Denies wounds Neuro Denies abnormal gait, Reports dizziness, Denies headache(s), Denies memory loss, Denies numbness, Denies Sensory deficit (Neuro), Denies tingling and Reports weakness Psych Denies anxiety, Denies depression, Denies memory loss Endo Denies cold intolerance, Reports fatigue, Denies heat intolerance, Denies polydipsia and Denies polyuria Aller/Immun Denies wheezing Physical exam (Primary Care) Vital Signs: Last Vital Signs Temp 98.0 F 11/28/24 12:37 Pulse 67 11/28/24 12:37 Resp 16 11/28/24 12:37 BP 128/66 11/28/24 12:37 Pulse Ox 98 11/28/24 12:37 Oxygen Delivery Method Room Air 11/28/24 12:37 BMI result Body Mass Index 36.6 Tobacco/Smoking Status: Tobacco use Status Tobacco use date assessed 11/28/24 11/28/24 12:40 Patient Tobacco Use Status Never used Tobacco 11/28/24 12:34 e-Cigarette/Vaping Use Never Used 11/28/24 12:34 PHQ-9: PHQ-9 Score PHQ-9: Total score 3 05/13/25 12:44 Thrive Assessment: Date of Thrive Assessment Date Thrive assessed 11/28/24 11/28/24 12:34 Currently or been in a relationship where the following occur: No concerns reported Const Other: General: no acute distress and well developed Nutritional Appearance: well nourished Orientation/consciousness: patient oriented x3 [facility] Head: Yes normocephalic and Yes atraumatic Eyes General: appearance normal, both eyes and all related structures Pupils: Equal, round and reactive pupils present EOM: EOMs intact bilaterally Resp Effort & Inspection: normal respiratory effort Auscultation: clear to auscultation bilaterally Cardio Rate: regular rate Rhythm: regular rhythm Heart sounds: S1 normal heart sound present, S2 normal heart sound present, no gallops, no murmurs and no rubs GI Palpation (GI): No Abdominal aortic bruit present, Soft to palpation, nontender, No hepatosplenomegaly present and No Rebound tenderness present Auscultation: normal bowel sounds General: Yes no CVA tenderness Back/Spine/Pelvis Back: no CVA tenderness Cervical Spine: cervical ROM normal and No Cervical spine tenderness Thoracic/Lumbar Spine: thoraco-lumbar ROM normal, No pain with thoraco-lumbar ROM, No thoracic spinal tenderness and No lumbar spinal tenderness Extrem General: Yes normal to inspection, No edema and No calf tenderness Skin General: warm and dry. Normal skin color. Normal skin turgor Lesions: no lesions Rashes: no rashes Trauma: no lacerations or abrasions Wounds: no wounds Nails: normal Neuro General: patient oriented x3, gait normal and no focal neuro deficit Cranial nerves: Yes Equal, round and reactive pupils present Cognition (Neuro): normal cognition Gait exam (Neuro): Normal gait present Sensory Exam: No Sensory deficit (Neuro) Psych Appearance: grossly normal Affect: normal affect Attitude: cooperative Thought process: Normal thought process present Coding Level of Care Code Est Pt Level 4 (08454) Diagnoses Hypothyroidism (acquired) E03.9 Pain of left breast N64.4 Assessment & Plan Assessment & Plan (1) Hypothyroidism (acquired): Code(s): E03.9 - Hypothyroidism, unspecified Category: Medical Plan: She also reports fatigue, weakness, nausea, dizziness, and loss of appetite for the past 2 weeks. She gained 5 lb since her last visit in February 2024. She denies bowel changes. She denies anxiety or depressive symptoms. She denies neck, jaw, shoulder, or back pain. She is on Synthroid 175 mcg daily, which she admits to taking as prescribed without adverse reactions. Her last TSH was elevated, 12.4 and free T4 was low, 0.68, here in 07/07/2023. She notes that she was followed by [facility] endocrinology and discharged to her PCP after her TSH/free t4 were normal a year ago. Her symptoms her likely attributed to poorly controlled TSH/T4 levels. Anemia and vitamin-D deficiency may also contributing factors. Will check labs and make changes as needed. Continue current treatment regimen. Adequate hydration encouraged. Follow-up with PCP or go to the ED with worsening symptoms. Verbalized understanding and agreed with the plan. (2) Pain of left breast: Code(s): N64.4 - Mastodynia Category: Medical Plan: Patient present with complaints of persistent stabbing pain to her entire left breast for the past 2 weeks. The left breast is tender to touch or if her garment is rubs against it. The breast feels full/heavy, similar sensation like but she is not lactating. She denies lumps or trauma to the breast. She denies chest pain or shortness of breast. Likely not cardiac related. EKG revealed normal sinus rhythm. Tenderness to palpation of the left breast, no lumps, injury/trauma noted. May take Tylenol ibuprofen for pain or discomfort. Warm/cool compresses encouraged. Follow-up for left breast ultrasound and schedule later this month. Follow-up with PCP as planned or go to the ED with worsening or new symptoms. Verbalized understanding and agreed with the plan. Orders: Orders TSH reflex Free T4 Today E03.9 - Hypothyroidism, unspecified Complete Blood Count Auto Diff Today E03.9 - Hypothyroidism, unspecified Comprehensive [place]. Panel Fast Today E03.9 - Hypothyroidism, unspecified Vitamin D 25-OH Total Today E03.9 - Hypothyroidism, unspecified
[2024-11-28 12:37] VITALS: BP 128/66; PULSE 67; RESP 16; TEMP 36.7; O2SAT 98; BMI 36.6
== END 2024-11-28 13:42 | disposition home or self-care (01) ==
LOC: HO.HMCFM 12:28
PROVIDERS: PCP Physician Assistant Medical; Visit Provider Nurse Practitioner Family
DX: E03.9 Hypothyroidism, unspecified (principal); N64.4 Mastodynia

== ENCOUNTER → 2024-11-28 12:28 | Outpatient (BNVA) | payer OTHER, SELFPAY | PROVIDERS: PCP Physician Assistant Medical; Visit Provider Nurse Practitioner Family | DX: Z13.89 Encounter for screening for other disorder (principal) ==

== ENCOUNTER 2024-12-02 09:26 | Outpatient (REF) | payer OTHER, SELFPAY ==
--- OUTSIDE RECORDS SUMMARY | 2024-12-02 09:28 | XMS_ITS | Clinical Summary ---
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 Role Phone Unavailable Primary Care Provider Unavailabl e Social History Tobacco Use Types Packs/Day Years Used Date Smoking Tobacco: Never Assessed Comments Unknown Sex and Gender Information Value Date Recorded Sex Assigned at Not on file Legal Sex Female 1:36 PM EDT Gender Identity Not on file Sexual Orientation Not on file Plan of Treatment Health Maintenance Due Date Last Done Comments Breast Cancer Screening 1983 DTaP,Tdap,and Td Vaccines (1 - Tdap) 2002 Hepatitis B Vaccines (1 of 3 - 19+ 3-dose series) 2002 Pneumococcal Vaccine: Pediat rics (0 to 5 Years) and At-Risk Patients (6 to 64 Years) (1 of 2 - PCV) 2002 Cervical Cancer Screening: P ap Smear 01/18/2004 Depression Screening 02/09/2024 HIV Screening 02/09/2024 Hepatitis C Screening 02/09/2024 Social Influencers of Health Screening 02/09/2024 COVID-19 Vaccine ( - 2023-2 5 season) 2024 Influenza Vaccine (Season Ended) 2025 HIB Vaccines Aged Out No longer eligi ble based on patient's age to complete this topic HPV Vaccines Aged Out No longer eligi ble based on patient's age to complete this topic Hepatitis A Vaccines Aged Out No long er eligible based on patient's age to complete this topic IPV Vaccines Aged Out No longer eligi ble based on patient's age to complete this topic MMR Vaccines Aged Out No longer eligi ble based on patient's age to complete this topic Meningococcal ACWY Vaccine Aged Out N o longer eligible based on patient's age to complete this topic Meningococcal B Vaccine Aged Out No l onger eligible based on patient's age to complete this topic RSV Immunization Patients Un trevor 20 months Aged Out No longer eligible b ased on patient's age to complete this topic Varicella Vaccines Aged Out No longer eligible based on patient's age to complete this topic
[2024-12-02 09:35] LABS: MANUAL DIFF FLAG NO
[2024-12-02 10:11] LABS: Basophils Percent Auto 0.5 % (0-2); Eosinophils Absolute Auto 0.1 X10*3/uL (0.0-0.4); Eosinophils Percent Auto 0.9 % (0-4); Hemoglobin 13.8 g/dl (12.0-16.0); Imm Gran Abs Auto 0.03 X10*3/uL (0.00-0.03); Imm Gran Pct Auto 0.4 % (0.0-0.4); Lymphocytes Absolute Auto 2.8 X10*3/uL (1.2-4.9); Lymphocytes Percent Auto 38.1 % (20-40); Mean Corpuscular HGB Conc 33.7 g/dl (31.0-35.0); Mean Corpuscular Hemoglobin 30.6 pg (27.0-33.0); Mean Corpuscular Volume 90.9 fL (80.0-98.0); Mean Platelet Volume 9.6 fL (9.4-12.3); Monocytes Absolute Auto 0.5 X10*3/uL (0.1-1.2); Monocytes Percent Auto 6.7 % (2-11); Neutrophils Percent Auto 53.4 % (45-73); Platelet Count 318 X10*3/uL (160-400); Red Blood Count 4.51 X10*6/uL (4.20-5.50); White Blood Count 7.4 X10*3/uL (4.8-10.8)
[2024-12-02 10:27] LABS: Alanine Aminotransferase 45 U/L (0-31); Albumin Level 3.9 g/dL (3.5-5.0); Alkaline Phosphatase 54 U/L (39-117); Anion Gap 10 (12-20); Aspartate Amino Transferase 31 U/L (5-31); Bilirubin Total 0.5 mg/dL (0.0-1.0); Blood Urea Nitrogen 12 mg/dL (9-16); Calcium 8.9 mg/dL (8.4-10.2); Carbon Dioxide 24 mmol/L (22-29); Chloride 110 mmol/L (96-108); Estimated Glomerular Filt Rate > 60; Glucose Fasting 92 mg/dL (60-99); Potassium 4.2 mmol/L (3.3-5.1); Sodium 140 mmol/L (135-145)
[2024-12-02 10:44] LABS: TSH reflex Free T4 0.18 uIU/mL (0.32-4.0); Vitamin D 25-OH Total 23.1 ng/mL (>30)
[2024-12-02 11:20] LABS: Free T4 (Free Thyroxine) 1.15 ng/dL (0.71-1.85)
== END 2024-12-02 09:27 | disposition home or self-care (01) ==
LOC: HO.LAB 09:26
PROVIDERS: PCP Nurse Practitioner Family; Visit Provider Nurse Practitioner Family
DX: E03.9 Hypothyroidism, unspecified (principal)
CPT/HCPCS: 36415; 80053; 82306; 84439; 84443; 85025

== ENCOUNTER → 2024-12-07 11:30 | Outpatient (BNV) | payer OTHER, SELFPAY | PROVIDERS: PCP Physician Assistant Medical; Visit Provider Internal Medicine | DX: N64.89 Other specified disorders of breast (principal) | CPT/HCPCS: 76642 ==

== ENCOUNTER 2024-12-07 11:47 | Outpatient (REF) | payer OTHER, SELFPAY ==
--- NOTE | ~2024-12-07 | US_ITS ---
EXAMINATION: US DIAGNOSTIC ULTRASOUND BREAST, LEFT CLINICAL INFORMATION: 6 month follow-up for hypoechoic oval solid mass versus complicated cyst in the left breast at 2:00 8 cm from the nipple.. COMPARISON: Comparison is made with relevant prior imaging. TECHNIQUE: Ultrasound of the breast is performed with real-time adams scale imaging and color Doppler. FINDINGS: Targeted color Doppler ultrasound demonstrates a hypoechoic oval parallel circumscribed solid mass versus complicated cyst at 2:00 8 cm from the nipple today measuring 10 x 7 x 11 mm not significantly changed from prior ultrasound 6 months ago. Results are discussed with the patient at time of visit. US/US breast LT limited mamm only IMPRESSION: Hypoechoic oval solid mass versus complicated cyst at 2:00 8 cm from the nipple. Recommend 6 month follow-up ultrasound for further evaluation of stability. ASSESSMENT: BI-RADS 3: Probably Benign RECOMMENDATION: Diagnostic mammography in 6 months. This patient's information was entered into a reminder system with a target due date for their next mammogram. Electronically signed by: Carmen Munoz DO 12/07/2024 12:21 PM EDT
--- OUTSIDE RECORDS SUMMARY | 2024-12-07 12:20 | XMS_ITS | Clinical Summary ---
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
== END 2024-12-07 11:48 | disposition home or self-care (01) ==
LOC: HO.MAMMO 11:47
PROVIDERS: PCP Physician Assistant Medical; Visit Provider Physician Assistant Medical
DX: N63.21 Unspecified lump in the left breast, upper outer quadrant (principal)
CPT/HCPCS: 76642

== ENCOUNTER 2025-01-18 08:13 | Outpatient (AMB) | payer OTHER, SELFPAY ==
--- OUTSIDE RECORDS SUMMARY | 2025-01-18 08:16 | XMS_ITS | Clinical Summary ---
Author Organization [facility] Address [address] [place] [address] Phone Care Team Providers Care [place] [employer] Name Role Phone Physician, Pcp Unknown Primary Care Provider Prema vailable Allergies Active Allergy Reactions Criticality Noted Date Comments Codeine 01/06/2025 Morphine 01/06/2025 Medications penicillin v potassium (VEETID) 500 mg tablet Take 1 tablet (500 mg total) by mouth 3 (three) times a day for 10 days. 30 tablet 01/06/2025 5 predniSONE (DELTASONE) 50 mg tablet Take 1 tablet (50 mg total) by mouth 1 (one) time each day for 5 days. See instruction s. 5 each 01/06/2025 5 Encounters Date Type Department Care Team Description 01/06/2025 9:46 AM EDT - 01/06/2025 6:01 PM EDT Emergency [facility] Emergency [address] [place] [address] Anival Rai DO Acute streptococcal pharyngitis (Primary Dx) Discharge Disposition: Home or Self Care from Last 3 Months Medical History Medical History Date Comments Disease of thyroid gland Asthma Social History Tobacco Use Types Packs/Day Years Used Date Smoking Tobacco: Unknown Tobacco Cessation:Counseling Given: Not Answered Comments Unknown Sex and Gender Information Value Date Recorded Sex Assigned at Not on file Legal Sex Female 1:36 PM EDT Gender Identity Not on file Sexual Orientation Not on file Obstetrics History Last Filed Vital Signs Vital Sign Reading Time Taken Comments Blood Pressure 111/41 01/06/2025 12:50 PM EDT Pulse 108 01/06/2025 12:50 PM EDT Temperature 37.6 C (99.7 F) 01/06/2025 12:50 PM EDT Respiratory Rate 18 01/06/2025 12:50 PM EDT Oxygen Saturation 98% 01/06/2025 12:50 PM EDT Inhaled Oxygen Concentration - - Weight 89.4 kg (197 lb) 01/06/2025 10:00 AM EDT Height 160 cm (5' 3 ) 01/06/2025 10:00 AM EDT Body Mass Index 34.9 01/06/2025 10:00 AM EDT Plan of Treatment Health Maintenance Due Date Last Done Comments Breast Cancer Screening 1983 Hepatitis B Vaccines (1 of 3 - 19+ 3-dose series) 2002 Pneumococcal Vaccine: Pediatrics (0 to 5 Years) and At-Risk Patients (6 to 64 Years) (1 of 2 - PCV) 2002 Cervical Cancer Screening: P ap Smear 01/18/2004 Depression Screening 02/09/2024 HIV Screening 02/09/2024 Hepatitis C Screening 02/09/2024 Social Influencers of Health Screening 02/09/2024 COVID-19 Vaccine (4 - 2023-2 5 season) 2024 06/05/2021, 09/23/2020, 09/02/2020 Influenza Vaccine (Season Ended) 2025 DTaP,Tdap,and Td Vaccines (3 - Td or Tdap) 12/27/2031 12/26/2021, 08/02/2012 HIB Vaccines Aged Out No longer eligi [...] to complete this topic RSV Immunization Patients Under 20 months Aged Out No longer eligible b ased on patient's age to complete this topic Varicella Vaccines Aged Out No longer eligible based on patient's age to complete this topic Procedures Procedure Name Priority Date/Time Associated Diagnosis Comments CT NECK SOFT TISSUE W CONTRAST STAT 01/06/2025 12:18 PM EDT POC , URINE DIAGNOSTIC STAT 01/06/2025 12:04 PM EDT RESPIRATORY VIRUS PANEL MOLECULAR STUDY STAT 01/06/2025 11:19 AM EDT CBC WITH AUTO DIFFERENTIAL STAT 01/06/2025 10:26 AM EDT BASIC METABOLIC PANEL STAT 01/06/2025 10:26 AM EDT CBC AND DIFFERENTIAL STAT 01/06/2025 10:26 AM EDT RAPID STREP A SCREEN STAT 01/06/2025 10:26 AM EDT from Last 3 Months Results * CT Neck Soft Tissue w Contrast (01/06/2025 12:18 PM EDT) Anatomical Region Laterality Modality Head and Neck Computed Tomogra phy 01/06/2025 1:51 PM EDT Impressions 01/06/2025 1:53 PM EDT Enlarged tonsils and adenoidal soft tissues without abscess. -------- FINAL REPORT -------- Dictated By: Peace Stallings Dictated Date: 01/06/2025 13:51 ET Assigned Physician: Peace Stallings Reviewed and Electronically Signed By: Peace Stallings Signed Date: 01/06/2025 13:53 ET Workstation ID: [id number] Transcribed By: Self Edit Transcribed Date: 01/06/2025 13:51 ET Narrative 01/06/2025 1:53 PM EDT INDICATION: Neck pain, concern for abscess TECHNIQUE: CT scan of the neck obtained with 90 cc Isovue-370 administered intravenously without incident. Scanner: [employer] [place] 64 slice VCT Dose reduction technique: ASIR (Adaptive statistical iterative reconstruction) and/or AEC (automated exposure control) Dose: total exam DLP 349 mGY per cm COMPARISON: No prior studies are available for comparison. FINDINGS: No peritonsillar abscess noted. Symmetrically enlarged tonsils and adenoids. No cervical lymphadenopathy. Parotid and submandibular glands are within normal limits. Status post thyroidectomy. Vascular structures are within normal limits for the patient's age. Bony structures are unremarkable. Paranasal sinuses are clear. Procedure Note Peace Stallings MD - 01/06/2025 INDICATION: Neck pain, concern for abscess TECHNIQUE: CT scan of the neck obtained with 90 cc Isovue-370 administeredintravenously without incident. Scanner: [employer] [facility] 64 slice VCT Dose reduction technique: ASIR (Adaptive statistical iterativereconstruction) and/or AEC (automated exposure control) Dose: total exam DLP 349 mGY per cm COMPARISON: No prior studies are available for comparison. FINDINGS: No peritonsillar abscess noted. Symmetrically enlarged tonsilsand adenoids. No cervical lymphadenopathy. Parotid and submandibular glands are within normal limits. Status postthyroidectomy. Vascular structures are within normal limits for the patient's age. Bonystructures are unremarkable. Paranasal sinuses are clear. IMPRESSION: Enlarged tonsils and adenoidal soft tissues without abscess. -------- FINAL REPORT -------- Dictated By: Peace Stallings Dictated Date: 01/06/2025 13:51 ET Assigned Physician: Peace Stallings Reviewed and Electronically Signed By: Peace Stallings Signed Date: 01/06/2025 13:53 ET Workstation ID: [id number] Transcribed By: Self Edit Transcribed Date: 01/06/2025 13:51 ET us Anival Rai DO IMG CT PROCEDURES Final Result * POC , urine manually resulted (01/06/2025 12:04 PM EDT) HCG, Ur POC Negative Negative POC hCG Int QC Pass? Yes Yes Urine Urine specimen obtained by clean catch procedure / Unknown 01/06/2025 12:04 PM EDT us Anival Rai DO POINT OF CARE TEST ENTER/EDIT ORDERABLES Final Result * Respiratory virus panel molecular study (01/06/2025 11:19 AM EDT) [facility] Adenovirus Detection by PCR Not Detected Not Detected LAB MICROBIOLOGY METHOD 01/06/2025 12:55 PM EDT [facility] Influenza A PCR Not Detected Not Detected LAB MICROBIOLOGY METHOD 01/06/2025 12:55 PM EDT [facility] Influenza B PCR Not Detected Not Detected LAB MICROBIOLOGY METHOD 01/06/2025 12:55 PM EDT [facility] Coronavirus 229E Not Detected Not Detected LAB MICROBIOLOGY METHOD 01/06/2025 12:55 PM EDT [facility] Coronavirus HKU1 Not Detected Not Detected LAB MICROBIOLOGY METHOD 01/06/2025 12:55 PM EDT [facility] Coronavirus OC43 Not Detected Not Detected LAB MICROBIOLOGY METHOD 01/06/2025 12:55 PM EDT [facility] Coronavirus NL63 Not Detected Not Detected LAB MICROBIOLOGY METHOD 01/06/2025 12:55 PM EDT [facility] Parainfluenza Virus 1 Not Detected Not Detected LAB MICROBIOLOGY METHOD 01/06/2025 12:55 PM EDT [facility] Parainfluenza Virus 2 Not Detected Not Detected LAB MICROBIOLOGY METHOD 01/06/2025 12:55 PM EDT [facility] Parainfluenza Virus 3 Not Detected Not Detected LAB MICROBIOLOGY METHOD 01/06/2025 12:55 PM EDT [facility] Parainfluenza Virus 4 Not Detected Not Detected LAB MICROBIOLOGY METHOD 01/06/2025 12:55 PM EDT [facility] RSV PCR Not Detected Not Detected LAB MICROBIOLOGY METHOD 01/06/2025 12:55 PM EDT [facility] Human Metapneumovirus A and B Not Detected Not Detected LAB MICROBIOLOGY METHOD 01/06/2025 12:55 PM EDT [facility] Rhinovirus/Entero virus Not Detected Not Detected LAB MICROBIOLOGY METHOD 01/06/2025 12:55 PM EDT [facility] Bordetella pertussis Not Detected Not Detected LAB MICROBIOLOGY METHOD 01/06/2025 12:55 PM EDT [facility] Bordetella parapertussis Not Detected Not Detected LAB MICROBIOLOGY METHOD 01/06/2025 12:55 PM EDT [facility] Mycoplasma pneumo by PCR Not Detected Not Detected LAB MICROBIOLOGY METHOD 01/06/2025 12:55 PM EDT [facility] Chlamydia pneumoniae Not Detected Not Detected LAB MICROBIOLOGY METHOD 01/06/2025 12:55 PM EDT [facility] SARS COV-2 Not Detected Not Detected LAB MICROBIOLOGY METHOD 01/06/2025 12:55 PM EDT [facility] Swab Both anterior nares / Unknown Non-blood Collection / Unknown 01/06/2025 11:19 AM EDT 01/06/2025 11:32 AM EDT Narrative [facility] - 01/06/2025 12:55 PM EDT Testing was performed using the [employer] Respiratory Pathogen PCR Assay. All results must be correlated with the clinical findings. Results should not be used as the sole basis for diagnosis. False Negative results may occur from the presence of sequence variants in the region targeted by the assay or the presence of inhibitors. Results may be affected by concurrent antiviral/antimicrobial therapy or levels of organisms that are below the limit of detection. us Anival Rai DO LAB MICROBIOLOGY - GENERAL ORD ERABLES Final Result [facility] [address] [place] [address], * (ABNORMAL) Rapid strep A screen (01/06/2025 10:26 AM EDT) [facility] Signature Strep A Ag Positive(A ) Negative, Invalid 01/06/2025 10:45 AM EDT [facility] Swab Structure of anterior portion of neck / Unknown Non-blood Collection / Unknown 01/06/2025 10:26 AM EDT 01/06/2025 10:31 AM EDT us Anival Rai DO LAB MICROBIOLOGY - GENERAL ORD ERABLES Final Result [facility] [address] [place] [address], * (ABNORMAL) CBC auto differential (01/06/2025 10:26 AM EDT) WBC 17.6(H) 4.8 - 10.8 K/mcL LAB HEMETOLOGY [facility] RBC 4.50 3.80 - 4.80 M/[facility] LAB HEMETOLOGY METHOD [facility]/06[facility]2025 10[facility] Hemoglobin 14.0 11.5 - 16.0 g/dL LAB HEMETOLOGY METHOD 01/06/2025 10:37 AM [facility] Hematocrit 42.3 35.0 - 47.0 % LAB HEMETOLOGY METHOD 01/06/2025 10:37 AM [facility] MCV 93.6 79.0 - 98.0 FL LAB HEMETOLOGY METHOD [facility]/06[facility]2025 10[facility] MCH 31.0 27.0 - 32.0 pcg LAB HEMETOLOGY METHOD 01/06/2025 10:37 AM [facility] MCHC 33.1 32.0 - 37.0 g/dL LAB HEMETOLOGY METHOD 01/06/2025 10:37 AM [facility] RDW 12.0 11.0 - 15.0 % LAB HEMETOLOGY METHOD 01/06/2025 10:37 AM [facility] Platelets 271 130 - 400 K/mcL LAB HEMETOLOGY METHOD 01/06/2025 10:37 AM [facility] MPV 9.5 7.0 - 11.0 FL LAB HEMETOLOGY METHOD 01/06/2025 10:37 AM [facility] NRBC 0.0 <1.0 % LAB HEMETOLOGY METHOD 01/06/2025 10:37 AM [facility] NRBC Absolute 0.00 <0.10 K/mcL LAB HEMETOLOGY METHOD 01/06/2025 10:37 AM [facility] Neutrophils Relative 84.2 % LAB HEMETOLOGY METHOD 01/06/2025 10:37 AM [facility] Lymphocytes Relative 8.9 % LAB HEMETOLOGY METHOD 01/06/2025 10:37 AM [facility] Monocytes Relative 6.2 % LAB HEMETOLOGY METHOD 01/06/2025 10:37 AM [facility] Eosinophils Relative 0.1 % LAB HEMETOLOGY METHOD 01/06/2025 10:37 AM [facility] Basophils Relative 0.3 % LAB HEMETOLOGY METHOD 01/06/2025 10:37 AM [facility] Immature Granulocytes Relative 0.3 % LAB HEMETOLOGY METHOD 01/06/2025 10:37 AM [facility] Neutrophils Absolute 14.78(H) 1.50 - 7.00 K/mcL LAB HEMETOLOGY METHOD 01/06/2025 10:37 AM [facility] Lymphocytes Absolute 1.56 1.00 - 5.00 K/mcL LAB HEMETOLOGY METHOD 01/06/2025 10:37 AM [facility] Monocytes Absolute 1.08(H) 0.20 - 1.00 K/mcL LAB HEMETOLOGY METHOD 01/06/2025 10:37 AM EDT [facility] Eosinophils Absolute 0.02 0.00 - 0.50 K/mcL LAB HEMETOLOGY METHOD 01/06/2025 10:37 AM EDT [facility] Basophils Absolute 0.06 0.00 - 0.20 K/mcL LAB HEMETOLOGY METHOD 01/06/2025 10:37 AM T [facility] Immature Granulocytes Absolute 0.06(H) 0.00 - 0.03 K/mcL LAB HEMETOLOGY METHOD 01/06/2025 10:37 AM T [facility] Blood Venous blood specimen / Unknown Venipuncture / Unknown 01/06/2025 10:26 AM EDT 01/06/2025 10:31 AM EDT us Anival Rai DO LAB BLOOD ORDERABLES Final Res ult [facility] [address] [place] [address], [place] [phone] * (ABNORMAL) Basic metabolic panel (01/06/2025 10:26 AM EDT) Sodium 141 133 - 145 mmol/L LAB CHEMISTRY METHOD 01/06/2025 11:05 AM [facility] Potassium 3.8 3.5 - 5.5 mmol/L LAB CHEMISTRY METHOD 01/06/2025 11:05 AM [facility] Chloride 108 96 - 110 mmol/L LAB CHEMISTRY METHOD 01/06/2025 11:05 AM [facility] CO2 26 21 - 32 mmol/L LAB CHEMISTRY METHOD 01/06/2025 11:05 AM [facility] Anion Gap 7 3 - 11 LAB CHEMISTRY METHOD 01/06/2025 11:05 AM [facility] Glucose 108(H) 70 - 100 mg/dL LAB CHEMISTRY METHOD 01/06/2025 11:05 AM EDT [facility] BUN 7 5 - 25 mg/dL LAB CHEMISTRY METHOD 01/06/2025 11:05 AM EDT [facility] Creatinine 0.83 0.50 - 1.10 mg/dL LAB CHEMISTRY METHOD [facility]/06[facility]2025 [facility] eGFR 91 >=60 mL/min/1. 73m2 LAB CHEMISTRY METHOD 01/06/2025 11:05 AM EDT [facility] Comment:Calculation based on the Chronic Kidney Disease Epidemiology Collaboration (CKD-EPI) equation refit without adjustment for race. BUN/Creatinine Ratio 8.4 LAB CHEMISTRY METHOD 01/06/2025 11:05 AM [facility] Calcium 8.7 8.5 - 10.5 mg/dL LAB CHEMISTRY METHOD 01/06/2025 11:05 AM [facility] Blood Venous blood specimen / Unknown Venipuncture / Unknown 01/06/2025 10:26 AM EDT 01/06/2025 10:31 AM EDT us Anival Rai DO LAB BLOOD ORDERABLES Final Res ult [facility] [address] [place] [address], from Last 3 Months Additional Health Concerns Infection Onset Date Last Indicated Streptococcus Group A 01/06/2025 01/06/2025 Insurance [facility] Care Teams [place] [employer] Relationship Specialty Start Date End Date Physician, Pcp Unknown PCP - General 01/06/25
--- NOTE | 2025-01-18 08:23 | MHC.PC.OV ---
Vital Signs 01/18/25 08:29 Height 5 ft 2 in Weight 195 lb 4 oz BMI 35.7 BP 114/68 Blood Pressure Location Rt brachial Position Sitting Respiration 16 Pulse 78 Pulse Source Pulse Oximeter Temp 97.7 F Temp Source Temporal Artery Scan Pulse Oximetry (%) 96 Oxygen Delivery Method Room Air Intake Visit Reasons: ANNUAL PE Intake Note: Nohemi presents in the office today for her annual physical. Allergies morphine (MORPHINE) Allergy (Severe, Verified 01/18/25 08:27) CHEST PRESSURE AND TIGHTNESS aspirin (ASPIRIN) Allergy (Intermediate, Verified 01/18/25 08:27) RASH, redness and itching codeine (CODEINE) Allergy (Intermediate, Verified 01/18/25 08:27) RASH, redness and itching ibuprofen (From Motrin) Allergy (Intermediate, Verified 01/18/25 08:27) Hives shellfish derived (SHELLFISH DERIVED) Allergy (Intermediate, Verified 01/18/25 08:27) RED/ITCH STERI-STRIP ADHESIVE Allergy (Intermediate, Uncoded 01/18/25 08:27) RASH Tobacco use date assessed: 01/18/25 Dental Screening Dental Screen Date: 01/18/25 Did you have a dental visit in the last 12 months?: Yes Did you have a dental problem in the last 6 months where you did not have access to dental care?: No Was dental information given to patient?: Patient has dentist HPI HPI Comments History of Present Illness Details This is a 38-year-old female with a past medical history of vitamin-D deficiency, hypothyroidism, ovarian cysts, GERD, migraines and obesity presenting for a physical exam. She was evaluated by my colleague in November for fatigue and left breast pain. Breast pain resolved. She had a screening mammogram in April which demonstrated a circumscribed oval mass in the outer breast on the left side. She had additional mammogram views and ultrasound in May of 2024 which demonstrated a solid mass versus complicated cyst at 02:00 in the left breast. A six-month follow up left breast ultrasound was recommended. She had a breast ultrasound on 12/07/2024 which showed a hypoechoic oval solid mass versus complicated cyst at 02:00 noted to be probably a benign finding with recommendation to repeat imaging in 6 months. She continues to feel fatigued but reveals she is not sleeping well. She wakes up 4 or 5 times per night. She is unsure if she snores. Her partner is treated for sleep apnea. She does not feel well rested after sleeping. She endorses fatigue and daytime somnolence. She would fall asleep very easily if she sits down in a recliner during the day. She also has larger tonsils. She has had strep throat twice this year treated with penicillin and steroids. Denies sore throat, fevers, chills. She tried melatonin, but it made her feel dizzy in the morning. She saw weight management because she was trying to get a GLP 1, but she did not hear about whether or not insurance covered it. She is trying to modify her diet and having more grilled protein and vegetables. She endorses generalized abdominal pain that is occurring after she eats or drinks for the past 3 weeks. It does not matter what type of food she has. She stopped drinking coffee and cut back on greasy foods. The pain lasts an hour. It is moderate. She denies vomiting, diarrhea, blood in stools, weight loss. Denies NSAID use, smoking and alcohol use. She takes omeprazole as needed, but she has not used it recently. S/p cholecystectomy. Hypothyroidism previously managed by endocrinology. She was released from follow up. TSH has fluctuated this year. Medication was adjusted in November. Denies family history of colon cancer. Initial screening recommended age 45 years unless otherwise indicated. Referred to OBGYN for annual exam. Shellfish allergy since childhood. EpiPen renewed today. Reviewed proper administration and continue strict avoidance of shellfish. ROS: Constitutional: No unexplained weight loss, fever, chills or night sweats. Eyes: No vision changes, blurry vision, double vision, eye pain, eye redness, eye discharge. ENT: No hearing loss, sneezing, congestion, runny nose or sore throat. Respiratory: No shortness of breath, cough or sputum production. Cardiovascular: No chest pain, chest pressure or chest discomfort. No palpitations or pedal edema. Gastrointestinal: No anorexia, nausea, vomiting or diarrhea. No blood in stool. Genitourinary: No dysuria, hematuria, urinary frequency. Neurologic: No headache, dizziness, syncope, unilateral weakness, ataxia, numbness or tingling in the extremities. Musculoskeletal: No muscle pain, back pain, joint pain or swelling. Hematologic/Lymphatics: No bleeding or bruising. No painful lymph nodes. Skin: No rash or itching. Endocrine: No cold or heat intolerance. No polyuria or polydipsia. Psychiatric: No depression or anxiety. No SI/HI. Physical exam: Constitutional: Alert, in no distress. Head: Normocephalic. Eyes: Pupils are equal, round and reactive to light. Extraocular muscles intact. Ear, Nose and Throat: Canals clear. TMs normal. Normal nasal mucosa. No nasal discharge. No oral lesions. Neck: Supple, Full range of motion. No lymphadenopathy. No palpable thyroid masses. Respiratory: Clear to auscultation. Cardiovascular: S1 S2 regular. No murmurs. No carotid bruits. Gastrointestinal: Abdomen soft, non-tender, non-distended. Normal bowel sounds. No palpable masses. Neurologic: No focal neurological deficits. Symmetric patellar reflexes. Moves all extremities spontaneously. Sensation intact bilaterally. Skin: No rashes or lesions. Musculoskeletal: No gross deformities. Normal range of motion. Extremities: Warm and well perfused. No clubbing, cyanosis or edema. 3 Psychiatric: Normal mood and affect [facility] Medical History (Updated 01/18/25 @ 23:08 by JEOVANNY Casey) Abnormal mammogram Insomnia Fatigue Daytime somnolence Vitamin D deficiency Screening for cardiovascular condition Routine physical examination Asthma exacerbation Ganglion cyst of dorsum of left wrist History of hypothyroidism Surgical History History of thyroidectomy History of appendectomy History of cholecystectomy History of section Family History (Updated 01/18/25 @ 08:29 by Diana Rea MA) Father Diabetes Hyperlipidemia Mother Diabetes Skin cancer Hyperlipidemia Asthma Brother Brain cancer Social History Household Members: Spouse and Children Housing: House Alcohol intake: never Patient Tobacco Use Status: Never used Tobacco e-Cigarette/Vaping Use: Never Used Second Hand Smoke Exposure: No service: No Current occupational status: employed 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 1. Little interest or pleasure in doing things: not at all 2. Feeling down, depressed, or hopeless: not at all 3. Trouble falling or staying asleep, or sleeping too much: more than half the days 4. Feeling tired or having little energy: more than half the days 5. Poor appetite or overeating: more than half the days 6. Feeling bad about yourself - or that you are a failure or have let yourself or your family down: not at all 7. Trouble concentrating on things, such as reading the newspaper or watching television: not at all 8. Moving or speaking so slowly that other people could have noticed. Or the opposite - being so fidgety or restless that you have been moving around a lot more than usual: not at all 9. Thoughts that you would be better off or of hurting yourself in some way: not at all Total score: 6 Depression Screening Interpretation: Positive Depression Screening Follow-up: Other (sleep/fatigue eval ordered) Depression Screening Done: Yes 23519 - PHQ-9 Billing: Yes Source: Developed by Drs. Ortega Alaniz, Gianna Carrion, Jeff Cardoso and colleagues, with an educational ismael from [employer]. Thrive Questionnaire Date Thrive assessed: 01/18/25 I am a: Patient What is your living situation today?: I have a steady place to live Within the past 12 months, did the food you bought not last and you didn't have the money to get more?: Never true Within the past 12 months, did you worry whether your food would run out before you got money to buy more?: Never true Do you have trouble paying for medicines?: No Do you have trouble getting transportation to medical appointments?: No Do you have trouble paying your heating and electricity bill?: No Do you have trouble taking care of your child, family member or friend?: No Do you have trouble with day-to-day activities such as bathing, preparing meals, shopping, managing finances, etc.?: No Are you currently unemployed and looking for a job?: No Are you interested in more education?: No Please select the resources that you would like help with: None Currently or been in a relationship where the following occur: No concerns reported THRIVE Score: 0 AUDIT C Alcohol Use Questionnaire (AUDIT-C) 1. How often do you have a drink containing alcohol?: Monthly or less 2. How many drinks containing alcohol do you have on a typical day when you are drinking?: 1 or 2 3. How often do you have six or more drinks on one occasion?: Never Total Score: 1 JESUS ALBERTO-7 AMB Questionnaire JESUS ALBERTO-7 Date JESUS ALBERTO - 7 assessed: 01/18/25 Feeling nervous, anxious, or on edge: 0 = Not at all Not being able to stop or control worryin = Not at all Worrying too much about different things: 0 = Not at all Trouble relaxin = Not at all Being so restless that it is hard to sit still: 0 = Not at all Becoming easily annoyed or irritable: 0 = Not at all Feeling afraid as if something awful might happen: 0 = Not at all Total JESUS ALBERTO-7 score (0-4 normal; 5-9 mild; 10-14 moderate; 15-21 severe): 0 Source: Developed by Drs. Ortega Alaniz, Gianna Carrion, Jeff Cardoso and colleagues, with an educational ismael from [employer]. JESUS ALBERTO-7 Assessment Billing JESUS ALBERTO-7 Assessment Tool: JESUS ALBERTO-7 Assessment 75599 Physical exam (Primary Care) Vital Signs: Last Vital Signs Temp 97.7 F 01/18/25 08:29 Pulse 78 01/18/25 08:29 Resp 16 01/18/25 08:29 BP 114/68 01/18/25 08:29 Pulse Ox 96 01/18/25 08:29 Oxygen Delivery Method Room Air 01/18/25 08:29 BMI result Body Mass Index 35.7 Tobacco/Smoking Status: Tobacco use Status Tobacco use date assessed 01/18/25 01/18/25 08:33 Patient Tobacco Use Status Never used Tobacco 01/18/25 08:25 e-Cigarette/Vaping Use Never Used 01/18/25 08:25 PHQ-9: PHQ-9 Score PHQ-9: Total score 6 01/18/25 09:32 Depression Screening Interpretation: Positive Depression Screening Follow-up: Other (sleep/fatigue eval ordered) Thrive Assessment: Date of Thrive Assessment Date Thrive assessed 01/18/25 01/18/25 08:25 Currently or been in a relationship where the following occur: No concerns reported Coding Level of Care Code Est Pt Level 3 (35345) Est Pt Prev Care 40-64y(43854) Diagnoses Routine physical examination Z00.00 Generalized abdominal pain R10.84 Abdominal location: generalized Chronic fatigue R53.82 Fatigue type: chronic, unspecified Hypothyroidism (acquired) E03.9 Vitamin D deficiency E55.9 Abnormal mammogram R92.8 Daytime somnolence R40.0 Insomnia G47.00 Additional Codes JESUS ALBERTO-7 Assessment Billing - JESUS ALBERTO-7 Assessment Tool: JESUS ALBERTO-7 Assessment 91020 ([id number]) PHQ-9 - 47819 - PHQ-9 Billing: Yes ([id number]) Assessment & Plan Assessment & Plan (1) Routine physical examination: Code(s): Z00.00 - Encounter for general adult medical examination without abnormal findings Category: Medical Plan: Patient is seen today for a routine physical. As part of this visit we reviewed the following issues, which are considered and essential part of preventative health in this age group: - Breast Cancer screening - Annual [employer] exam - Screening for colon cancer - Blood pressure screening - Cholesterol screening - Osteoporosis prevention including calcium/vitamin D intake, weight bearing exercise & smoking cessation - Nutritional and exercise counseling - Screening for depression - Education about skin cancer - Recommendations about immunizations - Recommendation of an eye exam - Screening for substance abuse (2) Abdominal pain: Code(s): R10.9 - Unspecified abdominal pain Category: Medical Qualifiers: Abdominal location: generalized Qualified Code(s): R10.84 - Generalized abdominal pain Plan: Check labs Continue avoidance of spicy/acidic foods Once stool sample is collected start omeprazole 20 mg qam consistently Avoid NSAIDs Check u/s Warning signs warranting ER follow up reviewed (3) Fatigue: Code(s): R53.83 - Other fatigue Category: Medical Qualifiers: Fatigue type: chronic, unspecified Qualified Code(s): R53.82 - Chronic fatigue, unspecified Plan: Check labs and sleep study (4) Hypothyroidism (acquired): Code(s): E03.9 - Hypothyroidism, unspecified Category: Medical Plan: Check TSH (5) Vitamin D deficiency: Code(s): E55.9 - Vitamin D deficiency, unspecified Category: Medical Plan: Check vitamin d On supplement (6) Abnormal mammogram: Code(s): R92.8 - Other abnormal and inconclusive findings on diagnostic imaging of breast Category: Medical Plan: Repeat imaging 6 months per date of last exam per radiology (7) Daytime somnolence: Code(s): R40.0 - Somnolence Category: Medical Plan: Ordered sleep study (8) Insomnia: Code(s): G47.00 - Insomnia, unspecified Category: Medical Plan Follow up in 1 month Orders: Orders Lipase Today R10.9 - Unspecified abdominal pain, Z00.00 - Encounter for general adult medical examination without abnormal findings, Z13.6 - Encounter for screening for cardiovascular disorders Amylase Today R10.9 - Unspecified abdominal pain, Z00.00 - Encounter for general adult medical examination without abnormal findings, Z13.6 - Encounter for screening for cardiovascular disorders Complete Blood Count Auto Diff Today R10.9 - Unspecified abdominal pain, Z00.00 - Encounter for general adult medical examination without abnormal findings, Z13.6 - Encounter for screening for cardiovascular disorders Comprehensive Met. Panel Today R10.9 - Unspecified abdominal pain, Z00.00 - Encounter for general adult medical examination without abnormal findings, Z13.6 - Encounter for screening for cardiovascular disorders UA w Microscopic Today R10.9 - Unspecified abdominal pain, R39.9 - Unspecified symptoms and signs involving the genitourinary system, Z00.00 - Encounter for general adult medical examination without abnormal findings, Z13.6 - Encounter for screening for cardiovascular disorders Urine Culture Today R10.9 - Unspecified abdominal pain, R39.9 - Unspecified symptoms and signs involving the genitourinary system, Z00.00 - Encounter for general adult medical examination without abnormal findings, Z13.6 - Encounter for screening for cardiovascular disorders TSH reflex Free T4 Today R10.9 - Unspecified abdominal pain, Z00.00 - Encounter for general adult medical examination without abnormal findings, Z13.6 - Encounter for screening for cardiovascular disorders Vitamin D 25-OH (D2 and D3) Today E55.9 - Vitamin D deficiency, unspecified, R10.9 - Unspecified abdominal pain, Z00.00 - Encounter for general adult medical examination without abnormal findings, Z13.6 - Encounter for screening for cardiovascular disorders H pylori Ag Stool Today R10.9 - Unspecified abdominal pain, Z00.00 - Encounter for general adult medical examination without abnormal findings, Z13.6 - Encounter for screening for cardiovascular disorders RT home sleep study Today G47.00 - Insomnia, unspecified, R40.0 - Somnolence, R53.83 - Other fatigue Vitamin B12 and Folate Today R53.83 - Other fatigue US abdomen complete Today R10.9 - Unspecified abdominal pain Lipid Panel Today E78.5 - Hyperlipidemia, unspecified, R10.9 - Unspecified abdominal pain, Z00.00 - Encounter for general adult medical examination without abnormal findings, Z13.6 - Encounter for screening for cardiovascular disorders Lyme IgG/IgM w/reflex to WB Today R53.83 - Other fatigue 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
[2025-01-18 08:29] VITALS: BP 114/68; PULSE 78; RESP 16; TEMP 36.5; O2SAT 96; BMI 35.7
== END 2025-01-18 09:13 | disposition home or self-care (01) ==
LOC: HO.HMCFM 08:14
PROVIDERS: PCP Physician Assistant Medical; Visit Provider Physician Assistant Medical
DX: Z00.00 Encounter for general adult medical examination without abnormal findings (principal); R10.84 Generalized abdominal pain; R53.82 Chronic fatigue, unspecified; E03.9 Hypothyroidism, unspecified; E55.9 Vitamin D deficiency, unspecified; R92.8 Other abnormal and inconclusive findings on diagnostic imaging of breast; R40.0 Somnolence; G47.00 Insomnia, unspecified

== ENCOUNTER 2025-01-18 09:28 | Outpatient (REF) | payer OTHER, SELFPAY ==
[2025-01-18 11:02] LABS: MANUAL DIFF FLAG NO
[2025-01-18 11:24] LABS: Hematocrit 43.0 % (37.0-47.0); Hemoglobin 14.2 g/dl (12.0-16.0); Imm Gran Abs Auto 0.10 X10*3/uL (0.00-0.03); Imm Gran Pct Auto 0.8 % (0.0-0.4); Lymphocytes Absolute Auto 3.2 X10*3/uL (1.2-4.9); Mean Corpuscular HGB Conc 33.0 g/dl (31.0-35.0); Mean Corpuscular Hemoglobin 30.3 pg (27.0-33.0); Mean Corpuscular Volume 91.9 fL (80.0-98.0); NRBC Abs Auto 0.000 X10*3/uL (0.0-0.012); NRBC Pct Auto 0.0 /100WBC (0.0-0.2); Platelet Count 380 X10*3/uL (160-400); Red Blood Count 4.68 X10*6/uL (4.20-5.50); White Blood Count 12.1 X10*3/uL (4.8-10.8)
[2025-01-18 11:36] LABS: Alanine Aminotransferase 45 U/L (0-31); Albumin Level 4.2 g/dL (3.5-5.0); Alkaline Phosphatase 70 U/L (39-117); Amylase 78 U/L (28-100); Anion Gap 9 (12-20); Aspartate Amino Transferase 38 U/L (5-31); Blood Urea Nitrogen 9 mg/dL (9-16); Calcium 9.0 mg/dL (8.4-10.2); Carbon Dioxide 24 mmol/L (22-29); Chloride 108 mmol/L (96-108); Cholesterol 145 mg/dL (<200); Estimated Glomerular Filt Rate > 60; HDL Cholesterol 40 mg/dL (>40); Lipase 39 U/L (8-78); Potassium 4.0 mmol/L (3.3-5.1); Sodium 137 mmol/L (135-145); Total Protein 7.1 g/dL (6.5-8.0); Triglycerides 126 mg/dL (<150)
[2025-01-18 12:14] LABS: Folate 4.6 ng/mL (> or = 4.0); Vitamin B12 430 pg/mL (200-900)
[2025-01-18 12:27] LABS: Free T4 (Free Thyroxine) 0.87 ng/dL (0.71-1.85)
[2025-01-18 14:47] LABS: Appearance Urine Clear; Glucose Urine UA Negative (Negative); PH 5.0 (5.0-9.0); Specific Gravity - Urine 1.025 (1.005-1.025)
[2025-01-22 12:03] LABS: Vitamin D 25-OH, D2 <4 ng/mL; Vitamin D 25-OH, D3 24 ng/mL; Vitamin D 25-OH, Total 24 ng/mL (30-100)
[2025-01-23 09:48] LABS: Lyme Abs Screen <0.90 index
== END 2025-01-18 09:29 | disposition home or self-care (01) ==
LOC: HO.WFDLDS 09:28
PROVIDERS: Visit Provider Physician Assistant Medical
DX: Z00.00 Encounter for general adult medical examination without abnormal findings (principal); R10.84 Generalized abdominal pain; R53.82 Chronic fatigue, unspecified; E03.9 Hypothyroidism, unspecified; E55.9 Vitamin D deficiency, unspecified; R92.8 Other abnormal and inconclusive findings on diagnostic imaging of breast; R40.0 Somnolence; G47.00 Insomnia, unspecified; Z13.31 Encounter for screening for depression; Z13.39 Encounter for screening examination for other mental health and behavioral disorders; R39.9 Unspecified symptoms and signs involving the genitourinary system; E78.5 Hyperlipidemia, unspecified
CPT/HCPCS: 36415; 80053; 80061; 81001; 82150; 82306; 82607; 82746; 83690; 84439; 84443; 85025; 86617; 86618; 87086; 96127

== ENCOUNTER 2025-03-13 07:41 | Outpatient (REF) | payer OTHER, SELFPAY ==
--- NOTE | ~2025-03-13 | US_ITS ---
CLINICAL HISTORY: R10.9 - Unspecified abdominal pain US abdomen complete Comparison: CT/REG/SR - CT ABDOMEN PELVIS W IV CON - 03/03/23 16:59 EDT Findings: Liver measures 18 cm in long axis. Increased hepatic echotexture indicative of fatty infiltration seen on the patient's prior CT scan. No focal hepatic lesions or intrahepatic biliary ductal dilatation are identified. Common bile duct is within normal limits. Gallbladder is surgically absent. Pancreas and spleen are unremarkable. Kidneys are of normal echotexture without focal lesion, nephrolithiasis, or hydronephrosis. Aorta and inferior vena cava are patent. No free fluid. IMPRESSION: 1. Hepatomegaly with diffuse fatty infiltration of the liver. 2. Otherwise, unremarkable abdominal ultrasound. This document has been electronically signed by: Rao Lu MD on 03/13/2025 09:02:51
--- OUTSIDE RECORDS SUMMARY | 2025-03-13 07:50 | XMS_ITS | Clinical Summary ---
Author Organization [facility] Address [address] [place] [address] Phone Care Team Providers Care Wrapper Hand Name Role Phone Physician, Pcp Unknown Primary Care Provider Prema vailable Allergies Active Allergy Reactions Criticality Noted Date Comments Codeine 01/06/2025 Morphine 01/06/2025 Encounters Date Type Department Care Team Description 01/06/2025 9:46 AM EDT - 01/06/2025 6:01 PM EDT Emergency [facility] Emergency [address] [place] [id number] Anival Rai DO Acute streptococcal pharyngitis (Primary [...] 5 Years) and At-Risk Patients (6 to 49 Years) (1 of 2 - PCV) 2002 Cervical Cancer Screening: P ap Smear 01/18/2004 HIV Screening 02/09/2024 Hepatitis C Screening 02/09/2024 Social Influencers of Health Screening 02/09/2024 COVID-19 Vaccine (4 - 2023-2 5 season) 2024 06/05/2021, 09/23/2020, 09/02/2020 Depression Screening 07/19/2024 Influenza Vaccine (#1) 2025 DTaP,Tdap,and Td Vaccines (3 - Td [...] Signed Date: 01/06/2025 13:53 ET Workstation ID: [id number] Transcribed By: Self Edit Transcribed Date: 01/06/2025 13:51 ET Narrative 01/06/2025 1:53 PM EDT INDICATION: Neck pain, concern for abscess TECHNIQUE: CT scan of the neck obtained with 90 cc Isovue-370 administered intravenously without incident. Scanner: [employer] 64 slice VCT Dose reduction technique: ASIR [...] 90 cc Isovue-370 administeredintravenously without incident. Scanner: [employer] 64 slice VCT Dose reduction technique: ASIR [...] Signed Date: 01/06/2025 13:53 ET Workstation ID: [id number] Transcribed By: Self Edit Transcribed Date: 01/06/2025 13:51 ET Anival Rai DO IMG CT PROCEDURES Final Result * POC , urine manually resulted (01/06/2025 12:04 PM EDT) [facility] HCG, Ur POC Negative Negative POC hCG Int QC Pass? Yes Yes Urine Urine specimen obtained by clean catch procedure / Unknown 01/06/2025 12:04 PM EDT Anival Rai DO POINT OF CARE TEST ENTER/EDIT ORDERABLES Final Result * Respiratory virus panel molecular study (01/06/2025 11:19 AM EDT) [facility] Adenovirus Detection by PCR Not Detected Not Detected LAB MICROBIOLOGY METHOD 01/06/2025 12:55 PM EDT [facility] Influenza A PCR Not Detected Not Detected LAB MICROBIOLOGY METHOD 01/06/2025 12:55 PM EDT [facility] Influenza B PCR Not Detected Not Detected LAB MICROBIOLOGY METHOD 01/06/2025 12:55 PM EDT [facility] Coronavirus 229E Not Detected Not Detected LAB MICROBIOLOGY METHOD 01/06/2025 12:55 PM EDT [facility] Coronavirus HKU1 Not Detected Not Detected LAB MICROBIOLOGY METHOD 01/06/2025 12:55 PM EDT [facility] Coronavirus OC43 Not Detected Not Detected LAB MICROBIOLOGY METHOD 01/06/2025 12:55 PM EDT [facility] Coronavirus NL63 Not Detected Not Detected LAB MICROBIOLOGY METHOD 01/06/2025 12:55 PM EDT [facility] Parainfluenza Virus 1 Not Detected Not Detected LAB MICROBIOLOGY METHOD 01/06/2025 12:55 PM EDT [facility] Parainfluenza Virus 2 Not Detected Not Detected LAB MICROBIOLOGY METHOD 01/06/2025 12:55 PM EDT [facility] Parainfluenza Virus 3 Not Detected Not Detected LAB MICROBIOLOGY METHOD 01/06/2025 12:55 PM EDT [facility] Parainfluenza Virus 4 Not Detected Not Detected LAB MICROBIOLOGY METHOD 01/06/2025 12:55 PM EDT [facility] RSV PCR Not Detected Not Detected LAB MICROBIOLOGY METHOD 01/06/2025 12:55 PM EDT [facility] Human Metapneumovirus A and B Not Detected Not Detected LAB MICROBIOLOGY METHOD 01/06/2025 12:55 PM EDT [facility] Rhinovirus/Entero virus Not Detected Not Detected LAB MICROBIOLOGY METHOD 01/06/2025 12:55 PM EDT [facility] Bordetella pertussis Not Detected Not Detected LAB MICROBIOLOGY METHOD 01/06/2025 12:55 PM EDT [facility] Bordetella parapertussis Not Detected Not Detected LAB MICROBIOLOGY METHOD 01/06/2025 12:55 PM EDT [facility] Mycoplasma pneumo by PCR Not Detected Not Detected LAB MICROBIOLOGY METHOD 01/06/2025 12:55 PM EDT [facility] Chlamydia pneumoniae Not Detected Not Detected LAB MICROBIOLOGY METHOD 01/06/2025 12:55 PM EDT [facility] SARS COV-2 Not Detected Not Detected LAB MICROBIOLOGY METHOD 01/06/2025 12:55 PM EDT [facility] Swab Both anterior nares / Unknown Non-blood Collection / Unknown 01/06/2025 11:19 AM EDT 01/06/2025 11:32 AM EDT Narrative [facility] - 01/06/2025 12:55 PM EDT Testing was performed using the [employer] Respiratory Pathogen PCR Assay. All results must [...] MICROBIOLOGY - GENERAL ORD ERABLES Final Result [facility] [address] [place] [address], [place] [phone] * (ABNORMAL) Rapid strep A screen (01/06/2025 10:26 AM EDT) Strep A Ag Positive(A ) Negative, Invalid 01/06/2025 10:45 AM EDT [facility] Swab Structure of anterior portion of neck / Unknown Non-blood Collection / Unknown 01/06/2025 10:26 AM EDT 01/06/2025 10:31 AM EDT us Anival Rai DO LAB MICROBIOLOGY - GENERAL ORD ERABLES Final Result Performing Organization Address City/[facility]/ZIP Co de Phone Number [facility] [address] [place] [address], * (ABNORMAL) CBC auto differential (01/06/2025 10:26 AM EDT) [facility] WBC 17.6(H) 4.8 - 10.8 K/mcL LAB HEMETOLOGY METHOD 01/06/2025 10:37 AM [facility] RBC 4.50 3.80 - 4.80 M/mcL LAB HEMETOLOGY METHOD 01/06/2025 10:[facility] Hemoglobin 14.0 11.5 - 16.0 g/dL LAB HEMETOLOGY METHOD 01/06/2025 10:37 AM [facility] Hematocrit 42.3 35.0 - 47.0 % LAB HEMETOLOGY METHOD 01/06/2025 10:37 AM [facility] MCV 93.6 79.0 - 98.0 FL LAB HEMETOLOGY METHOD 01/06/2025 10:37 AM [facility] MCH 31.0 27.0 - 32.0 pcg LAB HEMETOLOGY METHOD 01/06/2025 10:37 AM [facility] MCHC 33.1 32.0 - 37.0 g/dL LAB HEMETOLOGY METHOD 01/06/2025 10:37 AM [facility] RDW 12.0 11.0 - 15.0 % LAB HEMETOLOGY METHOD 01/06/2025 10:37 AM [facility] Platelets 271 130 - 400 K/mcL LAB HEMETOLOGY METHOD 01/06/2025 10:37 AM [facility] MPV 9.5 7.0 - 11.0 FL LAB HEMETOLOGY METHOD 01/06/2025 10:37 AM [facility] NRBC 0.0 <1.0 % LAB HEMETOLOGY METHOD 01/06/2025 10:37 AM [facility] NRBC Absolute 0.00 <0.10 K/mcL LAB HEMETOLOGY METHOD 01/06/2025 10:37 AM EDT [facility] Neutrophils Relative 84.2 % LAB HEMETOLOGY METHOD 01/06/2025 10:37 AM [facility] Lymphocytes Relative 8.9 % LAB HEMETOLOGY METHOD 01/06/2025 10:37 AM EDT [facility] Monocytes Relative 6.2 % LAB HEMETOLOGY METHOD 01/06/2025 10:37 AM EDT [facility] Eosinophils Relative 0.1 % LAB HEMETOLOGY METHOD 01/06/2025 10:37 AM [facility] Basophils Relative 0.3 % LAB HEMETOLOGY METHOD 01/06/2025 10:37 AM [facility] Immature Granulocytes Relative 0.3 % LAB HEMETOLOGY METHOD 01/06/2025 10:37 AM [facility] Neutrophils Absolute 14.78(H) 1.50 - 7.00 K/mcL LAB HEMETOLOGY METHOD 01/06/2025 10:37 AM [facility] Lymphocytes Absolute 1.56 1.00 - 5.00 K/mcL LAB HEMETOLOGY METHOD 01/06/2025 10:37 AM [facility] Monocytes Absolute 1.08(H) 0.20 - 1.00 K/mcL LAB HEMETOLOGY METHOD 01/06/2025 10:37 [facility] Eosinophils Absolute 0.02 0.00 - 0.50 K/mcL LAB HEMETOLOGY METHOD 01/06/2025 10:37 AM [facility] Basophils Absolute 0.06 0.00 - 0.20 K/mcL LAB HEMETOLOGY METHOD 01/06/2025 10:37 AM [facility] Immature Granulocytes Absolute 0.06(H) 0.00 - 0.03 K/mcL LAB HEMETOLOGY METHOD 01/06/2025 10:37 AM [facility] Blood Venous blood specimen / Unknown Venipuncture / Unknown 01/06/2025 10:26 AM EDT 01/06/2025 10:31 AM EDT us Anival Rai DO LAB BLOOD ORDERABLES Final Res ult [facility] [address] [place] [address], [place] [phone] * (ABNORMAL) Basic metabolic panel (01/06/2025 10:26 AM EDT) Sodium 141 133 - 145 mmol/L LAB CHEMISTRY METHOD 01/06/2025 11:05 AM [facility] Potassium 3.8 3.5 - 5.5 mmol/L LAB CHEMISTRY METHOD 01/06/2025 11:05 AM [facility] Chloride 108 96 - 110 mmol/L LAB CHEMISTRY METHOD 01/06/2025 11:05 AM [facility] CO2 26 21 - 32 mmol/L LAB CHEMISTRY METHOD 01/06/2025 11:05 AM [facility] Anion Gap 7 3 - 11 LAB CHEMISTRY METHOD 01/06/2025 11:05 AM [facility] Glucose 108(H) 70 - 100 mg/dL LAB CHEMISTRY METHOD 01/06/2025 11:05 AM [facility] BUN 7 5 - 25 mg/dL LAB CHEMISTRY METHOD 01/06/2025 11:05 AM [facility] Creatinine 0.83 0.50 - 1.10 mg/dL LAB CHEMISTRY METHOD 01/06/2025 11:05 AM [facility] eGFR 91 >=60 mL/min/1. 73m2 LAB CHEMISTRY METHOD 01/06/2025 11:05 AM EDT [facility] Comment:Calculation based on the Chronic Kidney Disease Epidemiology Collaboration (CKD-EPI) equation refit without adjustment for race. BUN/Creatinine Ratio 8.4 LAB CHEMISTRY METHOD 01/06/2025 11:05 AM EDT [facility] Calcium 8.7 8.5 - 10.5 mg/dL LAB CHEMISTRY METHOD 01/06/2025 11:05 AM EDT [facility] Blood Venous blood specimen / Unknown Venipuncture / Unknown 01/06/2025 10:26 AM EDT 01/06/2025 10:31 AM EDT us Anival Rai DO LAB BLOOD ORDERABLES Final Res ult [facility] [address] [place] [address], from Last 3 Months Additional Health Concerns Infection Onset Date Last Indicated Streptococcus Group A 01/06/2025 01/06/2025 Insurance [facility] Care Teams Wrapper Hand Relationship Specialty Start Date End Date Physician, Pcp Unknown PCP - General 01/06/25
== END 2025-03-13 07:42 | disposition home or self-care (01) ==
LOC: HO.US 07:41
PROVIDERS: PCP Physician Assistant Medical; Visit Provider Physician Assistant Medical
DX: R10.9 Unspecified abdominal pain (principal)
CPT/HCPCS: 76700

== ENCOUNTER → 2025-03-13 07:44 | Outpatient (BNV) | payer OTHER, SELFPAY | PROVIDERS: PCP Physician Assistant Medical; Visit Provider Radiology Diagnostic Radiology | DX: R10.9 Unspecified abdominal pain (principal); K76.0 Fatty (change of) liver, not elsewhere classified; R16.0 Hepatomegaly, not elsewhere classified | CPT/HCPCS: 76700 ==

== ENCOUNTER 2025-03-30 08:32 | Outpatient (AMB) | payer OTHER, SELFPAY ==
--- OUTSIDE RECORDS SUMMARY | 2025-03-30 09:04 | XMS_ITS | Clinical Summary ---
Author Organization [facility] Address [address] [place] [address] Phone Care Team Providers Care Residential Case Manager Name Role Phone Physician, Pcp Unknown Primary Care Provider Prema vailable Allergies Active Allergy Reactions Criticality Noted Date Comments Codeine 01/06/2025 Morphine 01/06/2025 Encounters Date Type Department Care Team Description 01/06/2025 9:46 AM EDT - 01/06/2025 6:01 PM EDT Emergency [facility] Emergency [address] [place] [id number] Anival Rai DO Acute streptococcal pharyngitis (Primary [...] 02/09/2024 Social Influencers of Health Screening 02/09/2024 Depression Screening 07/19/2024 COVID-19 Vaccine ( - 2024-2 6 season) 2025 06/05/2021, 09/23/2020, 09/02/2020 Influenza Vaccine (#1) 2025 DTaP,Tdap,and Td Vaccines [...] Signed Date: 01/06/2025 13:53 ET Workstation ID: [id number] Transcribed By: Self Edit Transcribed Date: 01/06/2025 13:51 ET Narrative 01/06/2025 1:53 PM EDT INDICATION: Neck pain, concern for abscess TECHNIQUE: CT scan of the neck obtained with 90 cc Isovue-370 administered intravenously without incident. Scanner: [employer] 64 slice VCT Dose reduction technique: ASIR [...] 90 cc Isovue-370 administeredintravenously without incident. Scanner: [employer] 64 slice VCT Dose reduction technique: ASIR [...] Signed Date: 01/06/2025 13:53 ET Workstation ID: [id number] Transcribed By: Self Edit Transcribed Date: 01/06/2025 13:51 ET Anival Rai DO IMG CT PROCEDURES Final Result * POC , urine manually resulted (01/06/2025 12:04 PM EDT) [facility] HCG, Ur POC Negative Negative POC hCG Int QC Pass? Yes Yes Urine Urine specimen obtained by clean catch procedure / Unknown 01/06/2025 12:04 PM EDT Anival Rai DO POINT OF CARE TEST ENTER/EDIT ORDERABLES Final Result * Respiratory virus panel molecular study (01/06/2025 11:19 AM EDT) [facility] Adenovirus Detection by PCR Not Detected Not [...] PM EDT Testing was performed using the [employer] Respiratory Pathogen PCR Assay. All results must [...] Final Result [facility] [address] [place] [address], [place] [phone] * (ABNORMAL) Rapid strep A screen (01/06/2025 10:26 AM EDT) Strep A Ag Positive(A ) Negative, Invalid 01/06/2025 10:45 AM EDT [facility] Swab Structure of anterior portion of neck / Unknown Non-blood Collection / Unknown 01/06/2025 10:26 AM EDT 01/06/2025 10:31 AM EDT us Anival Rai DO LAB MICROBIOLOGY - GENERAL ORD ERABLES Final Result Performing Organization Address City/[facility]/ZIP Co de Phone Number [facility] [address] [place] [address], * (ABNORMAL) CBC auto differential (01/06/2025 10:26 AM EDT) [facility] WBC 17.6(H) 4.8 - 10.8 K/mcL LAB HEMETOLOGY METHOD 01/06/2025 10:37 AM [facility] RBC 4.50 3.80 - 4.80 M/mcL LAB HEMETOLOGY [facility] Hemoglobin 14.0 11.5 - 16.0 g/dL LAB HEMETOLOGY METHOD 01/06/2025 10:37 AM [facility] Hematocrit 42.3 35.0 - 47.0 % LAB HEMETOLOGY METHOD 01/06/2025 10:37 AM [facility] MCV 93.6 79.0 - 98.0 FL LAB HEMETOLOGY METHOD 01/06/2025 10:37 AM [facility] MCH 31.0 27.0 - 32.0 pcg LAB HEMETOLOGY METHOD 01/06/2025 10:37 AM [facility] MCHC 33.1 32.0 - 37.0 g/dL LAB HEMETOLOGY METHOD 01/06/2025 10:37 AM [facility] RDW 12.0 11.0 - 15.0 % LAB HEMETOLOGY METHOD 01/06/2025 10:37 AM [facility] Platelets 271 130 - 400 K/mcL LAB HEMETOLOGY METHOD 01/06/2025 10:37 AM [facility] MPV 9.5 7.0 - 11.0 FL LAB HEMETOLOGY METHOD 01/06/2025 10:37 AM [facility] NRBC 0.0 <1.0 % LAB HEMETOLOGY METHOD 01/06/2025 10:37 AM [facility] NRBC Absolute 0.00 <0.10 K/mcL LAB HEMETOLOGY METHOD 01/06/2025 10:37 AM EDT [facility] Neutrophils Relative 84.2 % LAB HEMETOLOGY METHOD 01/06/2025 10:37 AM [facility] Lymphocytes Relative 8.9 % LAB HEMETOLOGY METHOD 01/06/2025 10:37 AM EDT [facility] Monocytes Relative 6.2 % LAB HEMETOLOGY METHOD 01/06/2025 10:37 AM EDT [facility] Eosinophils Relative 0.1 % LAB HEMETOLOGY METHOD 01/06/2025 10:37 AM [facility] Basophils Relative 0.3 % LAB HEMETOLOGY METHOD 01/06/2025 10:37 AM [facility] Immature Granulocytes Relative 0.3 % LAB HEMETOLOGY METHOD 01/06/2025 10:37 AM [facility] Neutrophils Absolute 14.78(H) 1.50 - 7.00 K/mcL LAB HEMETOLOGY METHOD 01/06/2025 10:37 AM [facility] Lymphocytes Absolute 1.56 1.00 - 5.00 K/mcL LAB HEMETOLOGY METHOD 01/06/2025 10:37 AM [facility] Monocytes Absolute 1.08(H) 0.20 - 1.00 K/mcL LAB HEMETOLOGY METHOD [facility] Eosinophils Absolute 0.02 0.00 - 0.50 K/mcL LAB HEMETOLOGY METHOD 01/06/2025 10:37 AM [facility] Basophils Absolute 0.06 0.00 - 0.20 K/mcL LAB HEMETOLOGY METHOD 01/06/2025 10:37 AM [facility] Immature Granulocytes Absolute 0.06(H) 0.00 - 0.03 K/mcL LAB HEMETOLOGY METHOD 01/06/2025 10:37 AM [facility] Blood Venous blood specimen / Unknown Venipuncture / Unknown 01/06/2025 10:26 AM EDT 01/06/2025 10:31 AM EDT us Anival Rai DO LAB BLOOD ORDERABLES Final Res ult [facility] [address] [place] [address], [place] [phone] * (ABNORMAL) Basic metabolic panel (01/06/2025 10:26 AM EDT) Sodium 141 133 - 145 mmol/L LAB CHEMISTRY METHOD 01/06/2025 11:05 AM [facility] Potassium 3.8 3.5 - 5.5 mmol/L LAB CHEMISTRY METHOD 01/06/2025 11:05 AM [facility] Chloride 108 96 - 110 mmol/L LAB CHEMISTRY METHOD 01/06/2025 11:05 AM [facility] CO2 26 21 - 32 mmol/L LAB CHEMISTRY METHOD 01/06/2025 11:05 AM [facility] Anion Gap 7 3 - 11 LAB CHEMISTRY METHOD 01/06/2025 11:05 AM [facility] Glucose 108(H) 70 - 100 mg/dL LAB CHEMISTRY METHOD 01/06/2025 11:05 AM [facility] BUN 7 5 - 25 mg/dL LAB CHEMISTRY METHOD 01/06/2025 11:05 AM [facility] Creatinine 0.83 0.50 - 1.10 mg/dL LAB CHEMISTRY METHOD 01/06/2025 11:05 AM [facility] eGFR 91 >=60 mL/min/1. 73m2 LAB [...] ult [facility] [address] [place] [address], from Last 3 Months Additional Health Concerns Infection Onset Date Last Indicated Streptococcus Group A 01/06/2025 01/06/2025 Insurance [facility] Care Teams Residential Case Manager Relationship Specialty Start Date End Date Physician, Pcp Unknown PCP - General 01/06/25
--- NOTE | 2025-03-30 16:14 | A.OFFVIS_ITS ---
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 [facility] Allergies morphine (MORPHINE) Allergy (Severe, Verified 03/30/25 16:18) CHEST PRESSURE AND TIGHTNESS aspirin (ASPIRIN) Allergy (Intermediate, Verified 03/30/25 16:18) RASH, redness and itching codeine (CODEINE) Allergy (Intermediate, Verified 03/30/25 16:18) RASH, redness and itching ibuprofen (From Motrin) Allergy (Intermediate, Verified 03/30/25 16:18) Hives shellfish derived (SHELLFISH DERIVED) Allergy (Intermediate, Verified 03/30/25 16:18) RED/ITCH STERI-STRIP ADHESIVE Allergy (Intermediate, Uncoded 03/30/25 16:18) RASH Medication List - Last Reconciled 03/30/25 by Lee Rea MD albuterol sulfate mg inhalation Q4-6H PRN cholecalciferol (vitamin D3) 25 mcg PO DAILY 3 months epinephrine (EpiPen) 0.3 mg (0.3 mL) IM Q10M PRN levothyroxine (Synthroid) 150 mcg PO DAILY HPI HPI [employer] 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 The patient has tried to lose weight with self diets and exercise Lately the patient has been complaining of GERD and LUQ pain. She had an abdominal ultrasoubd that showed liver steatosis and hepatomegaly. She also had a CT of the abdomen and pelvis that I reviewed and is consistent with a diaphragmatic hernia. [facility] Medical History (Updated 03/30/25 @ 16:31 by Lee Rea MD) Diaphragmatic hernia BMI 35.0-35.9,adult Obesity Generalized postprandial abdominal pain Hepatic steatosis Elevated LFTs Low vitamin D level Abnormal mammogram Insomnia Fatigue Daytime somnolence Vitamin D deficiency Screening for cardiovascular condition Routine physical examination Asthma exacerbation Ganglion cyst of dorsum of left wrist History of hypothyroidism Surgical History History of thyroidectomy History of appendectomy History of cholecystectomy History of section Family History (Updated 01/18/25 @ 08:29 by Diana Rea MA) Father Diabetes Hyperlipidemia Mother Diabetes Skin cancer Hyperlipidemia Asthma Brother Brain cancer Social History Household Members: Spouse and Children Housing: House Alcohol intake: never Patient Tobacco Use Status: Never used Tobacco e-Cigarette/Vaping Use: Never Used Second Hand Smoke Exposure: No service: No Current occupational status: employed 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 [employer] 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/hazards: No Sexual orientation: Straight/Heterosexual Gender identity: Female Cognitive needs: No Hearing needs: No Vision needs: No Telehealth Telehealth Telehealth Platform: Telephone Location of provider rendering services: practice address Location of patient: address on file Patient Identification confirmed using: Name, : Yes Telehealth method: voice only Patient verbally consented to treatment: Yes Patient verbally consented to billing insurance company: Yes Patient informed of any privacy concerns related to visit: Yes Minutes spent on Phone/Video with Pt.: 30 Assessment & Plan Assessment & Plan (1) Obesity: Code(s): E66.9 - Obesity, unspecified Category: Medical Qualifiers: Obesity type: due to excess calories Obesity classification: adult class 2 (BMI 35 - 39.9) Serious obesity comorbidity presence: with serious comorbidity Body mass index: BMI 35.0-35.9 Qualified Code(s): E66.812 - Obesity, class 2; E66.01 - Morbid (severe) obesity due to excess calories; Z68.35 - Body mass index [BMI] 35.0-35.9, adult Plan: 1. The patient has a symptomatic fixed diaphragmatic hernia based on CT imaging and additionally she is severely obese. She would greatly benefit from concomitant laparosocpic diaphragmatic hernia repair and laparoscopic sleeve gastrectomy. I emphasized the importance of close follow-up, adherence to instructions and good communication. The surgery does not replace the need to change your lifestlyle which is the cause of the obesity problem. The surgery provides the motivation to try again to change your lifestyle, it reduces the appetite and make the transition to a better lifestyle easier and doubles the amount of weight you would lose compared to doing the lifestyle change without the surgery. You will need to be on a liquid diet with protein shakes for 2 weeks before surgery to maximize weight loss and boost your nutritional status to recover better from surgery and also for the first two weeks after surgery to let the stomach heal before we introduce other foods. After the first 2 weeks we will introduce protein bars and soft foods like scrambled eggs, cottage cheese and yogurt and after the 6th week will introduce meat, fish and cooked vegetables in small amounts. Over time you should be able to eat everything in small amounts. Side effects like nausea, vomiting, heartburn or abdominal pain are not common in the practice unless you are not following in the practice. This operation requires lifetime commitment to following in our practice and communication with me. You will much less weight and experience side effects if you don?t communicate or not following in the practice. Complications are rare and in our practice is about 1/10 of the national average. However, you can develop bleeding that may require transfusion (hasn?t happened for year in the practice), you may from complications (we did not have any deaths in the practice) and infections. Infections are usually a result of breakdown in communication or not understanding or following directions correctly. They are difficult to treat, they can happen during the first 6 weeks, they may require to be in the hospital for weeks or even months, not being able to eat by mouth and you may have drains and surgeries to try and correct the issue. Other risks and complications include possible conversion to an open procedure, leaks, small bowel obstruction, blood clots, cardiac, or pulmonary complications, as termite renewal inspector complications such as ulcers, insufficient weight loss and vitamin deficiencies. 2. You will receive a link of our software brisa to generate an individualized nut ritional and exercise plan specific for you. Please send me a screenshot of the plans you will generate Meal to include lean meat (beef, fish, pork, turkey, chicken), or zimbabwean yogurt, or egg whites, or beans with a salad with olive oil and fruits (berries, pears, apples, kiwi). Avoid salt, breads, potatoes, rice, pasta, desserts. ?3. If you choose shakes, each shake would be drunk slowly, like coffee in a period of 2 hours. ?4. If you choose bars, cut each bar in 4 pieces and eat each piece in 30min ?to make each bar last 2 hours. ?5. I emphasized the importance of measuring accurately the food portion and measure it when serving the food in plate ?6. The meal portions include a specific number of forks of meat and salad. You always eat the meat portion but you can replace up to half of salad/vegetables portion with rice, potatoes or pasta, or a fruit ?if you like. The less you do it the better weight loss will be. ?7. One full-size fork is what it can be scooped on the fork without falling aside and not what can be bit with the fork. Use regular forks like those you find in a typical restaurant. ?8.? Please buy the body composition scale we discussed and send me weight radha urements as soon as possible and then once a week. Always include your diet and exercise plan. 9. The best choice would be to purchase a stationary bike, elliptical or treadmill at home that can track calories. Let me know if you do so I can give you an exercise plan. ?10.?It is important of avoiding and for at least 18 months postoperatively and has been discussed at the infosession. ?11. Goal is to lose at least 1.5-2lbs per week ?12. Goal to lose 10% of your weight before surgery, which is about 20lbs. Ultimate weight goal: 174lbs before surgery 13. Please follow the diet plan exactly without any change. If you don't like something about the plan or you feel hungry you need to communicate with me so I can help you revise the plan. You should not change the plan yourself. 14. To be scheduled for EGD to assess the stomach's anatomy.The possibility of biopsies was discussed. Patient needs to avoid use of NSAIDs and aspirin for 1 week prior to EGD. You must be on liquids only the day before your endoscopy. Risks of perforation and bleeding was discussed with the patient. This will be an outpatient procedure with IV sedation. 15. I ordered a medication to help you with the weight loss which is called Zepbound. My office will try to authorize it. Please let me know when you receive it so I can give you a meal and exercise plan. Please let me know when you have one injection left so I can prescribe the next dose.Common side effects include nausea, vomiting, constipation, diarrhea, abdominal pain. Please let me know if you develop any of these symptoms. Orders: Orders Hemoglobin A1c Today E03.9 - Hypothyroidism, unspecified, E66.9 - Obesity, unspecified, K21.9 - Gastro-esophageal reflux disease without esophagitis, K44.9 - Diaphragmatic hernia without obstruction or gangrene, Z68.35 - Body mass index [BMI] 35.0-35.9, adult Complete Blood Count Auto Diff Today E03.9 - Hypothyroidism, unspecified, E66.9 - Obesity, unspecified, K21.9 - Gastro-esophageal reflux disease without esophagitis, K44.9 - Diaphragmatic hernia without obstruction or gangrene, Z68.35 - Body mass index [BMI] 35.0-35.9, adult Lipid Panel Today E03.9 - Hypothyroidism, unspecified, E66.9 - Obesity, unspecified, K21.9 - Gastro-esophageal reflux disease without esophagitis, K44.9 - Diaphragmatic hernia without obstruction or gangrene, Z68.35 - Body mass index [BMI] 35.0-35.9, adult Comprehensive Met. Panel Today E03.9 - Hypothyroidism, unspecified, E66.9 - Obesity, unspecified, K21.9 - Gastro-esophageal reflux disease without esophagitis, K44.9 - Diaphragmatic hernia without obstruction or gangrene, Z68.35 - Body mass index [BMI] 35.0-35.9, adult TSH reflex Free T4 Today E03.9 - Hypothyroidism, unspecified, E66.9 - Obesity, unspecified, K21.9 - Gastro-esophageal reflux disease without esophagitis, K44.9 - Diaphragmatic hernia without obstruction or gangrene, Z68.35 - Body mass index [BMI] 35.0-35.9, adult Vitamin D 25-OH Total Today E03.9 - Hypothyroidism, unspecified, E66.9 - Obesity, unspecified, K21.9 - Gastro-esophageal reflux disease without esophagitis, K44.9 - Diaphragmatic hernia without obstruction or gangrene, Z68.35 - Body mass index [BMI] 35.0-35.9, adult ECG 12 lead EKG Today E03.9 - Hypothyroidism, unspecified, E66.9 - Obesity, unspecified, K21.9 - Gastro-esophageal reflux disease without esophagitis, K44.9 - Diaphragmatic hernia without obstruction or gangrene, Z68.35 - Body mass index [BMI] 35.0-35.9, adult Insulin Today E03.9 - Hypothyroidism, unspecified, E66.9 - Obesity, unspecified, K21.9 - Gastro-esophageal reflux disease without esophagitis, K44.9 - Diaphragmatic hernia without obstruction or gangrene, Z68.35 - Body mass index [BMI] 35.0-35.9, adult H Pylori Breath Test Today E03.9 - Hypothyroidism, unspecified, E66.9 - Obesity, unspecified, K21.9 - Gastro-esophageal reflux disease without esophagitis, K44.9 - Diaphragmatic hernia without obstruction or gangrene, Z68.35 - Body mass index [BMI] 35.0-35.9, adult IRON PROFILE Today E03.9 - Hypothyroidism, unspecified, E66.9 - Obesity, unspecified, K21.9 - Gastro-esophageal reflux disease without esophagitis, K44.9 - Diaphragmatic hernia without obstruction or gangrene, Z68.35 - Body mass index [BMI] 35.0-35.9, adult Vitamin B12 and Folate Today E03.9 - Hypothyroidism, unspecified, E66.9 - Obesity, unspecified, K21.9 - Gastro-esophageal reflux disease without esophagitis, K44.9 - Diaphragmatic hernia without obstruction or gangrene, Z68.35 - Body mass index [BMI] 35.0-35.9, adult Zinc Today E03.9 - Hypothyroidism, unspecified, E66.9 - Obesity, unspecified, K21.9 - Gastro-esophageal reflux disease without esophagitis, K44.9 - Diaphragmatic hernia without obstruction or gangrene, Z68.35 - Body mass index [BMI] 35.0-35.9, adult C Reactive Protein Today E03.9 - Hypothyroidism, unspecified, E66.9 - Obesity, unspecified, K21.9 - Gastro-esophageal reflux disease without esophagitis, K44.9 - Diaphragmatic hernia without obstruction or gangrene, Z68.35 - Body mass index [BMI] 35.0-35.9, adult Vitamin B1 Today E03.9 - Hypothyroidism, unspecified, E66.9 - Obesity, unspecified, K21.9 - Gastro-esophageal reflux disease without esophagitis, K44.9 - Diaphragmatic hernia without obstruction or gangrene, Z68.35 - Body mass index [BMI] 35.0-35.9, adult Vitamin A Today E03.9 - Hypothyroidism, unspecified, E66.9 - Obesity, unspecified, K21.9 - Gastro-esophageal reflux disease without esophagitis, K44.9 - Diaphragmatic hernia without obstruction or gangrene, Z68.35 - Body mass index [BMI] 35.0-35.9, adult Ferritin Today E03.9 - Hypothyroidism, unspecified, E66.9 - Obesity, unspecified, K21.9 - Gastro-esophageal reflux disease without esophagitis, K44.9 - Diaphragmatic hernia without obstruction or gangrene, Z68.35 - Body mass index [BMI] 35.0-35.9, adult US abdomen comp w elastography Today E03.9 - Hypothyroidism, unspecified, E66.9 - Obesity, unspecified, K21.9 - Gastro-esophageal reflux disease without esophagitis, K44.9 - Diaphragmatic hernia without obstruction or gangrene, Z68.35 - Body mass index [BMI] 35.0-35.9, adult XR chest 2V Today E03.9 - Hypothyroidism, unspecified, E66.9 - Obesity, unspecified, K21.9 - Gastro-esophageal reflux disease without esophagitis, K44.9 - Diaphragmatic hernia without obstruction or gangrene, Z68.35 - Body mass index [BMI] 35.0-35.9, adult FL upper GI w air Today E03.9 - Hypothyroidism, unspecified, E66.9 - Obesity, unspecified, K21.9 - Gastro-esophageal reflux disease without esophagitis, K44.9 - Diaphragmatic hernia without obstruction or gangrene, Z68.35 - Body mass index [BMI] 35.0-35.9, adult Referrals Behavioral Health Referral E03.9 - Hypothyroidism, unspecified, E66.9 - Obesity, unspecified, K21.9 - Gastro-esophageal reflux disease without esophagitis, K44.9 - Diaphragmatic hernia without obstruction or gangrene, Z68.35 - Body mass index [BMI] 35.0-35.9, adult Nutrition/Dietitian Referral E03.9 - Hypothyroidism, unspecified, E66.9 - Obesity, unspecified, K21.9 - Gastro-esophageal reflux disease without esophagitis, K44.9 - Diaphragmatic hernia without obstruction or gangrene, Z68.35 - Body mass index [BMI] 35.0-35.9, adult Medications: New tirzepatide (weight loss) (Zepbound) for 4 weeks 2.5 mg (0.5 mL) subcut QWEEK 2 mL 0RF E66.9 - Obesity, unspecified, Z68.35 - Body mass index [BMI] 35.0-35.9, adult
[2025-03-30 16:15] VITALS: BMI 35.6
== END 2025-03-30 16:41 | disposition home or self-care (01) ==
LOC: HO.HBS 08:32
PROVIDERS: PCP Physician Assistant Medical; Visit Provider Surgery
DX: E66.812 Obesity, class 2 (principal); E66.01 Morbid (severe) obesity due to excess calories; Z68.35 Body mass index [BMI] 35.0-35.9, adult
CPT/HCPCS: 98011

== ENCOUNTER 2025-04-21 08:09 | Outpatient (REF) | payer OTHER, SELFPAY ==
--- NOTE | ~2025-04-21 | XR_ITS ---
CLINICAL HISTORY: K44.9 - Diaphragmatic hernia without obstruction or gangrene 2 view chest x-ray. Comparison: None Findings: Normal lung volumes. Lungs are clear. No pneumothorax or pleural effusion. Heart size normal. No passive venous congestion. No midline shift or tracheal deviation. No acute fracture. Impression: 1. No acute cardiopulmonary disease. This document has been electronically signed by: Rahat Madison MD on 04/23/2025 12:56:08
--- OUTSIDE RECORDS SUMMARY | 2025-04-21 08:14 | XMS_ITS | Clinical Summary ---
Author Organization [facility] Address [address] [place] [address] Phone Care Team Providers Care Automation Technician Name Role Phone Physician, Pcp Unknown Primary Care Provider Prema vailable Allergies Active Allergy Reactions Criticality Noted Date Comments Codeine 01/06/2025 Morphine 01/06/2025 Medical History Medical History Date Comments Disease [...] Cervical Cancer Screening: P ap Smear 01/18/2004 HPV Vaccines (1 - 3-dose SCD M series) 2010 HIV Screening 02/09/2024 Hepatitis C Screening 02/09/2024 Social Influencers of Health Screening 02/09/2024 Depression Screening 07/19/2024 COVID-19 Vaccine (4 - 2024-2 6 season) 2025 06/05/2021, 09/23/2020, 09/02/2020 Influenza Vaccine (#1) 2025 DTaP,Tdap,and Td Vaccines (3 - Td or Tdap) 12/27/2031 12/26/2021, 08/02/2012 RSV Immunization Adult Patients (1 - 1-dose 75+ series) 2058 HIB Vaccines Aged Out No longer eligi [...] on patient's age to complete this topic Additional Health Concerns Infection Onset Date Last Indicated Streptococcus Group A 01/06/2025 01/06/2025 Insurance [facility] Care Teams Automation Technician Relationship Specialty Start Date End Date Physician, Pcp Unknown PCP - General 01/06/25
[2025-04-21 08:41] LABS: MANUAL DIFF FLAG NO
[2025-04-21 09:21] LABS: Hematocrit 40.1 % (37.0-47.0); Hemoglobin 13.8 g/dl (12.0-16.0); Imm Gran Abs Auto 0.03 X10*3/uL (0.00-0.03); Imm Gran Pct Auto 0.4 % (0.0-0.4); Lymphocytes Absolute Auto 2.2 X10*3/uL (1.2-4.9); Mean Corpuscular HGB Conc 34.4 g/dl (31.0-35.0); Mean Corpuscular Hemoglobin 31.3 pg (27.0-33.0); Mean Corpuscular Volume 90.9 fL (80.0-98.0); NRBC Abs Auto 0.000 X10*3/uL (0.0-0.012); NRBC Pct Auto 0.0 /100WBC (0.0-0.2); Platelet Count 313 X10*3/uL (160-400); Red Blood Count 4.41 X10*6/uL (4.20-5.50); White Blood Count 7.6 X10*3/uL (4.8-10.8)
[2025-04-21 10:28] LABS: Hepatitis A Antibody IgM 0.12 Index (0-0.79); ~Hepatitis A Antibody IgM Nonreactive (Nonreactive)
[2025-04-21 10:29] LABS: HBc Num1 0.06 S/CO (0.00-0.79); HBsAGNum1 0.40 S/CO (0.00-0.99); Hepatitis A Antibody IgM 0.14 Index (0-0.79); Hepatitis B Surface Antigen Negative (Negative); ~HepC Num1 0.05 S/CO (0.00-0.79); ~Hepatitis A Antibody IgM Nonreactive (Nonreactive); ~Hepatitis B Surface Antibody REACTIVE (Nonreactive); ~Hepatitis C Antibody Nonreactive (Nonreactive)
[2025-04-21 10:36] LABS: Alanine Aminotransferase 46 U/L (0-31); Albumin Level 4.1 g/dL (3.5-5.0); Alkaline Phosphatase 51 U/L (39-117); Anion Gap 11 (12-20); Aspartate Amino Transferase 32 U/L (5-31); Blood Urea Nitrogen 11 mg/dL (9-16); Calcium 9.0 mg/dL (8.4-10.2); Carbon Dioxide 23 mmol/L (22-29); Chloride 109 mmol/L (96-108); Cholesterol 146 mg/dL (<200); Estimated Glomerular Filt Rate > 60; HDL Cholesterol 37 mg/dL (>40); Iron 79 mcg/dL (30-160); Percent Iron Saturation 25 % (15-50); Potassium 3.9 mmol/L (3.3-5.1); Sodium 139 mmol/L (135-145); Total Iron Binding Capacity 320 mcg/dL (228-428); Total Protein 6.9 g/dL (6.5-8.0); Triglycerides 78 mg/dL (<150); Unsaturated Iron Binding 241 ug/dL
[2025-04-21 10:38] LABS: Ferritin 88 ng/mL (10-250)
[2025-04-21 10:44] LABS: Folate 6.1 ng/mL (> or = 4.0); Vitamin B12 422 pg/mL (200-900)
== END 2025-04-21 08:10 | disposition home or self-care (01) ==
LOC: HO.XRAY 08:09
PROVIDERS: Absent Provider Surgery; PCP Physician Assistant Medical; Visit Provider Physician Assistant Medical
DX: K44.9 Diaphragmatic hernia without obstruction or gangrene (principal); K21.9 Gastro-esophageal reflux disease without esophagitis; R79.89 Other specified abnormal findings of blood chemistry; E03.9 Hypothyroidism, unspecified; E66.9 Obesity, unspecified; Z68.35 Body mass index [BMI] 35.0-35.9, adult
CPT/HCPCS: 36415; 71046; 80053; 80061; 82306; 82607; 82728; 82746; 83036; 83525; 83540; 84425; 84443; 84590; 84630; 85025; 86140; 86704; 86706; 86709; 86803; 87340

== ENCOUNTER → 2025-04-21 08:14 | Outpatient (BNV) | payer OTHER, SELFPAY | PROVIDERS: Absent Provider Surgery; PCP Physician Assistant Medical; Visit Provider Radiology Diagnostic Radiology | DX: K44.9 Diaphragmatic hernia without obstruction or gangrene (principal) | CPT/HCPCS: 71046 ==

== ENCOUNTER 2025-04-23 07:40 | Day surgery (SDC) | payer OTHER, SELFPAY ==
[2025-04-19 11:31] VITALS: BMI 35.6
--- NOTE | 2025-04-19 14:14 | HO.ANESPROP2 ---
Documented by User: Zulema Garcia NP 04/19/25 14:15 HPI - Anesthesia Eval Consult details Narrative: 40yo F for Upper Endoscopy Anesthesia Pre-Procedure Meds Is the patient on any of the following meds?: GLP1/DPP4 PMFSH Active Problems Active Problems: All Active Problems Diaphragmatic hernia (Acute) BMI 35.0-35.9,adult (Acute) Obesity (Acute) Generalized postprandial abdominal pain (Acute) Hepatic steatosis (Acute) Elevated LFTs (Acute) Low vitamin D level (Acute) Abnormal mammogram (Acute) Insomnia (Acute) Fatigue (Acute) Daytime somnolence (Acute) Vitamin D deficiency (Acute) Screening for cardiovascular condition (Acute) Routine physical examination (Acute) Pain of left breast (Acute) Asthma exacerbation (Acute) Low back pain with bilateral sciatica (Acute) Ganglion cyst of dorsum of left wrist (Acute) Abnormal uterine bleeding (AUB) (Acute) Complex ovarian cyst (Acute) Bilateral ovarian cysts (Acute) Eczema (Acute) GERD without esophagitis (Acute) Anxiety (Acute) Migraine with aura, not intractable (Acute) Hypothyroidism (acquired) (Acute) Past Medical History Medical History (Updated 03/30/25 @ 16:31 by Lee Rea MD) Diaphragmatic hernia BMI 35.0-35.9,adult Obesity Generalized postprandial abdominal pain Hepatic steatosis Elevated LFTs Low vitamin D level Abnormal mammogram Insomnia Fatigue Daytime somnolence Vitamin D deficiency Screening for cardiovascular condition Routine physical examination Asthma exacerbation Ganglion cyst of dorsum of left wrist History of hypothyroidism Family History Family History (Updated 01/18/25 @ 08:29 by Diana Rea MA) Father Diabetes Hyperlipidemia Mother Diabetes Skin cancer Hyperlipidemia Asthma Brother Brain cancer Surgical History Surgical History (Updated 04/23/25 @ 07:44 by Priti Sandoval RN) History of hysterectomy History of thyroidectomy History of appendectomy History of cholecystectomy History of section Social History Social History Household Members: Spouse and Children Housing: House Alcohol intake: never Patient Tobacco Use Status: Never used Tobacco e-Cigarette/Vaping Use: Never Used Second Hand Smoke Exposure: No Use of substances other than those prescribed or required for medical reasons: No Are you DNR?: No Advance Directives: No Advance Directives Information Provided: Yes Patient : No : No Poor oral hygiene: No service: No Current occupational status: employed 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[employer] 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/hazards: No Sexual orientation: Straight/Heterosexual Gender identity: Female Cognitive needs: No Hearing needs: No Vision needs: No Meds Allergies Allergy/AdvReac Type Severity Reaction Status Date / Time morphine (MORPHINE) Allergy Severe CHEST Verified 03/30/25 16:18 PRESSURE AND TIGHTNESS aspirin (ASPIRIN) Allergy Intermediate RASH, Verified 03/30/25 16:18 redness and itching codeine (CODEINE) Allergy Intermediate RASH, Verified 03/30/25 16:18 redness and itching ibuprofen (From Motrin) Allergy Intermediate Hives Verified 03/30/25 16:18 shellfish derived (SHELLFISH Allergy Intermediate RED/ITCH Verified 03/30/25 16:18 DERIVED) STERI-STRIP ADHESIVE Allergy Intermediate RASH Uncoded 03/30/25 16:18 Home Medications ?Medication ?Instructions ?Recorded ?Confirmed ?Last Taken ?Type albuterol sulfate 1.25 mg/3 mL 1.25 mg inhalation Q4-6H PRN 01/04/25 04/19/25 Unknown History solution for nebulization Shortness Of Breath Or Wheezing Exam Height,Weight and Vital Signs: Height 5 ft 2 in Weight 88.252 kg Assessment and Plan Assessment Anesthesia Assessment: Chart Reviewed Documented by User: Tracy Walker MD 04/23/25 08:01 [facility] Past Medical History Medical History (Updated 03/30/25 @ 16:31 by Lee Rea MD) Diaphragmatic hernia BMI 35.0-35.9,adult Obesity Generalized postprandial abdominal pain Hepatic steatosis Elevated LFTs Low vitamin D level Abnormal mammogram Insomnia Fatigue Daytime somnolence Vitamin D deficiency Screening for cardiovascular condition Routine physical examination Asthma exacerbation Ganglion cyst of dorsum of left wrist History of hypothyroidism Family History Family History (Updated 01/18/25 @ 08:29 by Diana Rea MA) Father Diabetes Hyperlipidemia Mother Diabetes Skin cancer Hyperlipidemia Asthma Brother Brain cancer Family history of problems with anesthesia: No Surgical History Surgical History (Updated 04/23/25 @ 07:44 by Priti Sandoval RN) History of hysterectomy History of thyroidectomy History of appendectomy History of cholecystectomy History of section History of Problems with Anesthesia: No Social History Social History Household Members: Spouse and Children Housing: House Alcohol intake: never Patient Tobacco Use Status: Never used Tobacco e-Cigarette/Vaping Use: Never Used Second Hand Smoke Exposure: No Use of substances other than those prescribed or required for medical reasons: No Are you DNR?: No Advance Directives: No Advance Directives Information Provided: Yes Patient : No : No Poor oral hygiene: No service: No Current occupational status: employed 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[employer] 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/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: No Sexual orientation: Straight/Heterosexual Gender identity: Female Cognitive needs: No Hearing needs: No Vision needs: No Meds Allergies Allergy/AdvReac Type Severity Reaction Status Date / Time morphine (MORPHINE) Allergy Severe CHEST Verified 03/30/25 16:18 PRESSURE AND TIGHTNESS aspirin (ASPIRIN) Allergy Intermediate RASH, Verified 03/30/25 16:18 redness and itching codeine (CODEINE) Allergy Intermediate RASH, Verified 03/30/25 16:18 redness and itching ibuprofen (From Motrin) Allergy Intermediate Hives Verified 03/30/25 16:18 shellfish derived (SHELLFISH Allergy Intermediate RED/ITCH Verified 03/30/25 16:18 DERIVED) STERI-STRIP ADHESIVE Allergy Intermediate RASH Uncoded 03/30/25 16:18 Home Medications ?Medication ?Instructions ?Recorded ?Confirmed ?Last Taken ?Type albuterol sulfate 1.25 mg/3 mL 1.25 mg inhalation Q4-6H PRN 01/04/25 04/19/25 Unknown History solution for nebulization Shortness Of Breath Or Wheezing Exam Airway Mallampati Class: II TM Dist: >3cm Neck ROM: Full Heart: rrr Lungs: cta Assessment and Plan Assessment Anesthesia Assessment: Anesthesia Plan Discussed Final Anesthetic Review Family History of Problems with Anesthesia: No History of Problems with Anesthesia: No NPO: Yes ASA Class: II Final Preanesthetic Review: No Changes in Pt Med Stat, Meds/Allgs Chart Reviewed and Consent Obtained/Reviewed Patient Risk: Intermediate Procedure Risk: Intermediate Anesthetic Plan Anesthetic Plan: MAC: Disposition: Standard PACU
[2025-04-23 07:52] VITALS: BMI 35.1
[2025-04-23 07:59] VITALS: BP 105/59; PULSE 82; RESP 16; TEMP 36.3; O2SAT 97
[2025-04-23] MEDS: Lactated Ringers 1,000 ML 100 ML IVCONT (08:07)
--- NOTE | 2025-04-23 08:46 | MHC.SHP ---
Pre-Procedural Eval Section A - 24 Hr Update-Section A only Date of Service: 04/23/25 The patient is an INPATIENT: No The patient has been examined within 24 hours of the surgical procedure. The History & Physical has been completed within 30 days and I have reviewed it.: Yes Section B - Complete if H&P > 30 days Chief Complaint: Morbid (severe) obesity due to excess calories Relevant Family History (Specify if Yes): Yes Relevant Social History: None Present Medications: None Medical History: No relevant PMH History of Previous Operations: No relevant previous surgery Allergies: Allergies Allergy/AdvReac Type Severity Reaction Status Date / Time morphine (MORPHINE) Allergy Severe CHEST Verified 03/30/25 16:18 PRESSURE AND TIGHTNESS aspirin (ASPIRIN) Allergy Intermediate RASH, Verified 03/30/25 16:18 redness and itching codeine (CODEINE) Allergy Intermediate RASH, Verified 03/30/25 16:18 redness and itching ibuprofen (From Motrin) Allergy Intermediate Hives Verified 03/30/25 16:18 shellfish derived (SHELLFISH Allergy Intermediate RED/ITCH Verified 03/30/25 16:18 DERIVED) STERI-STRIP ADHESIVE Allergy Intermediate RASH Uncoded 03/30/25 16:18 Review of Systems Sugical H&P ROS: Negative: Constitution, Cardiovascular, Respiratory, Neurological, Psychiatric, Hem-Onc, Allergic/Immunologic, Gastrointestinal, Genitourinary, Musculoskeletal, Integumentary, Endocrine and Eyes/Ears/Nose/Throat Exam Surgical H&P Exam: Normal: HEENT, Normal: Heart, Normal: Lungs, Normal: Extremities, Normal: Abdomen, Normal: Skin and Normal: Neurological Plan Diagnosis/Plan: Unchanged (EGD to assess etiology of GERD. Risks of bleeding and perforation were discussed with the patient and she is in agreement with the plan.) I have reviewed the history and physical and performed a pertinent physical examination on my patient. No changes have occurred unless specified. Time Spent With Patient Time: Total time managing care of this patient today ____ minutes.
--- NOTE | 2025-04-23 08:51 | P.BOP_ITS ---
Brief Operative Note Date of Service: 04/23/25 Pre-op diagnosis: GERD Post-op diagnosis: same Procedure: PROCEDURE DATE: 04/23/2025 PREOPERATIVE DIAGNOSIS: GERD POSTOPERATIVE DIAGNOSIS: ?Same as above. Normal endoscopy PROCEDURE: Qgrcqruc-spvype-oyemdmjqrouu with biopsies Surgeon: Jayson Rea M.D.. Ph.D. Personal Banking Representative: None ? Anesthesia: IV sedation Estimated blood loss: ?Minimal FINDINGS AND PROCEDURE: ? OPERATIVE INDICATIONS: ?The patient is a 40 year old female known to me who is interested in bariatric surgery. The patient has GERD. Based on this information I recommended an upper endoscopy to evaluate the patient's symptoms. Risks and complications of the surgery were discussed with the patient in advance particularly the possibility of perforation or bleeding that may require surgical intervention. The patient understood the risks and was in agreement with the plan. ? PROCEDURE: After informed consent was obtained by the patient, the patient was ?transferred to the Operating Room and was placed in the supine position.? After successful induction of IV sedation, a mouth block was inserted and the patient was placed in the left lateral decubitus position. An upper endoscopy was performed next, the oropharynx and esophagus appeared within the normal limits. There was no hiatal hernia. The z-line was smooth. Two biopsies were obtained from the distal esophagus 2-3 cm proximal to the GE junction and two additional biopsies from the GE junction. The stomach was entered and it appeared to be of normal size. There was no gastritis. There was no stricture or ulcer. A biopsy was obtained from the gastric fundus and the antrum. No significant bleeding was noted from any of the biopsy sites. Retroflexion of the scope confirmed the presence of a normal GE junction. The scope was then advanced into the duodenum which appeared to be normal as well. At that point the duodenum ?and the stomach were decompressed and the scope was withdrawn from the patient's mouth. The patient extubated and was transferred in stable condition to the Recovery Room for further care. I was present and performed all steps of the procedure. There were no residents to assist with this case. Wayne Rea M.D., Ph.D. Surgeon: Lee Rea MD Anesthesia: MAC Was an Personal Banking Representative used for this Procedure?: No Estimated blood loss (mL): 0 IV fluids (mL): 400 Urine output (mL): 0 (No Honeycutt to record output) Pathology: other (1) antrum x1, 2) fundus x1, 3) GE junction x2, 4) distal esophagus x2) Condition: stable Disposition: PACU
[2025-04-23 09:12] VITALS: BP 99/52; PULSE 92; RESP 16; TEMP 36.7; O2SAT 95
[2025-04-23 09:19] VITALS: BP 108/59; PULSE 92; RESP 16; TEMP 36.7; O2SAT 94
== END 2025-04-23 09:55 | disposition home or self-care (01) ==
PROVIDERS: PCP Physician Assistant Medical; Visit Provider Surgery
PROC: 0DJ08ZZ Inspection of Upper Intestinal Tract, Via Natural or Artificial Opening Endoscopic (ICD-10-PCS; CPT 43235; principal; 2025-04-23 09:00)
DX: K21.9 Gastro-esophageal reflux disease without esophagitis (principal); E66.01 Morbid (severe) obesity due to excess calories; Z68.35 Body mass index [BMI] 35.0-35.9, adult; K29.50 Unspecified chronic gastritis without bleeding; B96.81 Helicobacter pylori [H. pylori] as the cause of diseases classified elsewhere; K44.9 Diaphragmatic hernia without obstruction or gangrene; K76.0 Fatty (change of) liver, not elsewhere classified; E03.9 Hypothyroidism, unspecified; Z79.899 Other long term (current) drug therapy; Z88.5 Allergy status to narcotic agent; Z88.6 Allergy status to analgesic agent; L23.1 Allergic contact dermatitis due to adhesives
CPT/HCPCS: 43239; 88305; 88313; 88342; J2704

== ENCOUNTER → 2025-04-23 07:40 | Outpatient (BNV) | payer OTHER, SELFPAY | PROVIDERS: PCP Physician Assistant Medical; Visit Provider Surgery | DX: K21.9 Gastro-esophageal reflux disease without esophagitis (principal) | CPT/HCPCS: 43239 ==

== ENCOUNTER 2025-05-30 13:51 | Outpatient (AMB) | payer OTHER, SELFPAY ==
--- OUTSIDE RECORDS SUMMARY | 2025-05-28 18:29 | XMS_ITS | Continuity of Care Document ---
Author Organization [facility] ter Address [address] [place] [address]- Care Team Providers Care Rib Puller Name Role Phone Adriane Rojas [id number]): [facility]/28/25 - 05/28/[address] [address] Discharge Disposition: A-D/C Home Attending Physician: Tyler (UNIVERSAL BRANCH CONSULTANT) Grey REYES Admitting Physician: Tyler McgillUNIVERSAL BRANCH CONSULTANT) Grey REYES Referring Physician: Tyler McgillUNIVERSAL BRANCH CONSULTANT) Grey REYES Encounter Type: Disch Daystay Allergies, Adverse Reactions, Alerts Substance Criticality Severity Reaction Reaction Severity Status codeine red itchy Active aspirin red itchy Active morphine rash Active shellfish throat swells Active Adhesive Bandage 1 A ctive 1rash Functional Status Functional Status Assessment Assessment Assessment Component Result Effecti ve Date Unspecifed Functional Status Assessment Skin abnormality typ e (observable entity) Surgical incision 05/28/25 Immunizations Given and Recorded Vaccine Date Status Refusal Reason tetanus/diphtheria/pertussis, acel(Tdap) 12/26/21 Given tetanus/diphtheria/pertussis, acel(Tdap) 1 08/02/12 Given SARS-CoV-2 (COVID-19) mRNA BNT-162b2 vac 06/05/21 Recorded SARS-CoV-2 (COVID-19) mRNA BNT-162b2 vac 09/23/20 Recorded SARS-CoV-2 (COVID-19) mRNA BNT-162b2 vac 09/02/20 Recorded 1Admin Note: VIS given, 08/11/2011 Medications acetaminophen 325 mg oral capsule 2 capsule = 650 mg, By Mouth, Every 6 hours, PRN as needed for pain, # 30 capsule, 0 Refills, Acute06/04/25 3:26:00 PM EST, 05/15/25 3:23:00 PM EDT, Capsule, [facility] #[id number], Partial fill upon patient request if the prescription is for a schedule II opioid drug., 158, cm, 05/15/25 14:53:00 EDT, Height, 89.8, kg, 02/10/24 8:31:00 EDT, Dry Weight Start Date: 05/15/25 Stop Date: 06/04/25 Status: Ordered Medication Dispense Status: Completed Quantity: 30.0 Unit: capsule Total Allowed Fills: 1 Fills Dispensed: 0 Indications: Unspecified ovarian cyst, right side; ibuprofen 600 mg oral tablet 600 mg, 1, tablet, By Mouth, Every 6 hours, PRN, # 30 capsule, Refills 0, Tot. Refills 0, Acute 06/04/25 3:25:00 PM EST, for pain, 05/15/25 3:23:00 PM EDT, Route to Pharmacy Electronically, [facility] #[id number], Partial fill upon patient request if the prescription is for a schedule II opioid drug., 158, cm, 05/15/25 14:53:00 EDT, Height, 89.8, kg, 02/10/24 8:31:00 EDT, Dry Weight Start Date: 05/15/25 Stop Date: 06/04/25 Status: Ordered Medication Dispense Status: Completed Quantity: 30.0 Unit: capsule Total Allowed Fills: 1 Fills Dispensed: 0 Indications: Unspecified ovarian cyst, right side; levothyroxine 150 mcg (0.15 mg) oral tablet 1 tablet = 150 mcg, By Mouth, Daily, # 30 tablet, 2 Refills, Maintenance, 09/17/23 3:00:00 PM EST, Tablet, [facility] #[id number], Partial fill upon patient request if the prescription is for a schedule II opioid drug., 158, cm, 04/10/22 11:14:00 EDT, Height, 90, kg, 03/04/22 10:44:00 EDT, Dry Weight Start Date: 09/17/23 Status: Ordered Medication Dispense Status: Completed Quantity: 30.0 Unit: tablet Total Allowed Fills: 3 Fills Dispensed: 0 omeprazole 40 mg oral enteric coated capsule 1 capsule = 40 mg, By Mouth, Daily, Take on an empty stomach and wait 30 minutes before eating/drinking, # 90 capsule, 1 Refills, Maintenance, 04/19/25 2:18:00 PM EDT, EC Capsule, [facility][id number], Partial fill upon patient request if the prescription is for a schedule II opioid drug., 158, cm, 04/19/25 13:19:00 EDT, Height, 89.8, kg, 02/10/24 8:31:00 EDT, Dry Weight Start Date: 04/19/25 Stop Date: 10/16/25 Status: Ordered Medication Dispense Status: Completed Quantity: 90.0 Unit: capsule Total Allowed Fills: 2 Fills Dispensed: 0 Indications: Epigastric pain; ondansetron 4 mg oral tablet 1 tablet = 4 mg, By Mouth, Every 8 hours, PRN Nausea & Vomiting, # 6 capsule, 0 Refills, Acute 06/04/25 3:25:00 PM EST, 05/15/25 3:23:00 PM EDT, Tablet, [facility] #[id number], Partial fill upon patient request if the prescription is for a schedule II opioid drug., 158, cm, 05/15/25 14:53:00 EDT, Height, 89.8, kg, 02/10/24 8:31:00 EDT, Dry Weight Start Date: 05/15/25 Stop Date: 06/04/25 Status: Ordered Medication Dispense Status: Completed Quantity: 6.0 Unit: capsule Total Allowed Fills: 1 Fills Dispensed: 0 Indications: Unspecified ovarian cyst, right side; oxyCODONE 5 mg oral tablet 5 mg, 1, tablet, By Mouth, Every 6 hours, PRN, # 6 capsule, Refills 0, Tot. Refills 0, Acute 06/04/25 3:25:00 PM EST, as needed for pain, 05/15/25 3:23:00 PM EDT, Route to Pharmacy Electronically, [facility] #[id number], Partial fill upon patient request if the prescription is for a schedule II opioid drug., 158, cm, 05/15/25 14:53:00 EDT, Height, 89.8, kg, 02/10/24 8:31:00 EDT, Dry Weight Start Date: 05/15/25 Stop Date: 06/04/25 Status: Ordered Medication Dispense Status: Completed Quantity: 6.0 Unit: capsule Total Allowed Fills: 1 Fills Dispensed: 0 Indications: Unspecified ovarian cyst, right side; Oxycodone 5mg Oral Tablet (PACU ONLY) 5 mg, Tablet, By Mouth, Once, in PACU ONLY, PRN for Pain , Moderate, Routine, 05/28/25 4:09:00 PM EST Start Date: 05/28/25 Stop Date: 05/28/25 Status: Completed Medication Dispense Status: Completed Total Allowed Fills: 1 Fills Dispensed: 0 simethicone 80 mg oral tablet, chewable 80 mg, 1, tablet, Chew, 4 times a day, PRN, # 12 tablet, Refills 0, Tot. Refills 0, Acute 06/04/25 3:26:00 PM EST, as needed for gas, 05/15/25 3:23:00 PM EDT, Route to Pharmacy Electronically, [facility] #[id number], Partial fill upon patient request if the prescription is for a schedule II opioid drug., 158, cm, 05/15/25 14:53:00 EDT, Height, 89.8, kg, 02/10/24 8:31:00 EDT, Dry Weight Start Date: 05/15/25 Stop Date: 06/04/25 Status: Ordered Medication Dispense Status: Completed Quantity: 12.0 Unit: tablet Total Allowed Fills: 1 Fills Dispensed: 0 Indications: Unspecified ovarian cyst, right side; Zepbound 5 mg/0.5 mL subcutaneous solution = 5 mg, Subcutaneous Injection, Every week, rotate injection sites, # 4 each, 0 Refills, Maintenance, 05/15/25 2:56:00 PM EDT, Solution, Partial fill upon patient request if the prescription is for aschedule II opioid drug. Start Date: 05/15/25 Status: Ordered Medication Dispense Status: Completed Quantity: 4.0 Unit: each Total Allowed Fills: 1 Fills Dispensed: 0 Problem List Condition Confirmation Course Effective Dates Status H ealth Status Informant Asthma Confirmed Active History of depression Confirmed Active Hypothyroidism Confirmed Active Obese class I Confirmed Active PCOS - Polycystic ovarian syndrome Confirmed Active PCOS (polycystic ovarian syndrome) Confirmed Active Vital Signs Most recent to oldest [Reference Range]: 1 2 3 Height 158 cm (05/28/25 1:19 PM) 158 cm (05/21/25 10:26 AM) Weight 83 kg (05/28/25 1:19 PM) 80.5 kg (05/21/25 10:26 AM) Oxygen Saturation [94-100 %] 96 % (05/28/25 6:00 PM) 94 % (05/28/25 5:45 PM) 99 % (05/28/25 5:30 PM) Pulse Rate [55-90 bpm] 78 bpm (05/28/25 1:19 PM) Body Mass Index [18.5-24.99 kg/m2] 33.25 kg/m2 *H* (05/28/25 1:19 PM) 32.25 kg/m2 *H* (05/21/25 10:26 AM) Blood Pressure [90-138/55-84 mm Hg] 126/79mm Hg (05/28/25 6:00 PM) 108/60mm Hg (05/28/25 5:45 PM) 112/65mm Hg (05/28/25 5:30 PM) Respiratory Rate [16-30 br/min] 24 br/min (05/28/25 6:00 PM) 18 br/min (05/28/25 6:00 PM) 18 br/min (05/28/25 5:45 PM) Temperature [96.8-100.4 DegF] 97.4 DegF (05/28/25 5:45 PM) 97.3 DegF (05/28/25 5:15 PM) 98.8 DegF (05/28/25 1:19 PM) Liters per Minute 6 L/min (05/28/25 5:30 PM) 6 L/min (05/28/25 5:15 PM) Mode of Delivery (Oxygen) Room air (05/28/25 6:00 PM) Room air (05/28/25 5:45 PM) Simple face mask (05/28/25 5:30 PM) Blood pressure sites Arm, right (05/28/25 5:45 PM) Arm, right (05/28/25 5:15 PM) Arm, left (05/28/25 1:19 PM) Temperature Route Temporal (05/28/25 5:45 PM) Temporal (05/28/25 5:15 PM) Temporal (05/28/25 1:19 PM) Dry Weight 83 kg (05/28/25 1:19 PM) 80.5 kg (05/21/25 10:26 AM) Weight Obtained Via Standing scale (05/28/25 1:19 PM) Dry Weight Obtained Via Pediatric scale (05/28/25 1:19 PM) Social History Social History Type Response Smoking Status Never (less than 100 in lifetime) entered on: 08/25/21 Sexual Orientation Self described orien tation: ; Straight or heterosexual Sex Female Sex Representation Female (finding) Note * Ashlie Jacinto RN: PERFORM Event Display: Discharge/Transfer Note Hospital Authored Date: [id number] Nursing Discharge Note Entered On: 05/28/2025 18:30 EST Performed On: 05/28/2025 18:30 EST by Ashlie Jacinto RN Nursing Discharge Note 2 Discharge Time : 05/28/2025 18:29 EST Discharge Level of Care at Discharge : Home/Detention/Foster Care Patient Left Unit Via : Wheelchair Patient Accompanied Off Unit with : Significant other DC Instructions Provided & Signed by Pt : Yes Patient Understands D/C Instructions : Yes Patient Instructions Discharge Signed : Yes Did Pt have Specialty Bed or Wound Vac : No Ashlie Jacinto RN - 05/28/2025 18:30 EST Electronically Signed on 05/28/25 06:30 PM Ashlie Jacinto RN * Ashlie Jacinto RN: PERFORM Event Display: Patient Education/Instruction Authored Date: [id number] Surgery Adult Discharge Instructions [place] [id number] Name: JONATAN MANRIQUEZ : 1985?? Visit: 05/28/2025 12:56?? Current Date: 05/28/2025 17:38 ?? Account: [id number]?? Surgery Discharge Instructions We would like to [...] and their families. Surveys are administered by [employer]. ?? If further treatment with your primary care physician or another doctor is recommended, it is important for you to keep the appointment. Call your primary care physician or return to the Emergency Department immediately if your condition worsens, fails to improve, or new symptoms develop. If you need to find a doctor, you can call [facility] [employer] for a referral at [phone] or toll free at [phone] (5764) or log in to [email or web address].. ?? [facility], in keeping with [facility] guidance, no longer requires face masks for [...] a health care brisa of your choosing. [employer] is a website that allows you to [...] upon your request. You can enroll at [email or web address] or register d uring your next office visit. You have been discharged from [facility], Patient Care Unit: [facility]??. If you have any questions regarding these instructions after you leave, please call us and we will be happy to assist you. [facility] Your Care Team Attending Physician Tyler (UNIVERSAL BRANCH CONSULTANT) Grey REYES?? Discharging Providers Tyler McgillUNIVERSAL BRANCH CONSULTANT) Grey REYES Reason for Admission RECURRENT OVARIAN CYST CSC DS Your Diagnosis Right ovarian cyst Primary Care Provider Adriane Rojas? Advance Directive Health Care Proxy on File Yes - Health Care Proxy What to do next Instructions From Your Doctor ?? Orders? 05/28/25 13:16:00 EST?? Instructions from your Care Team Please follow MD discharge instruction sheet. ?? You may start Acetaminophen/Tylenol after 8:30 PM. ?? You may start Ibuprofen/Motrin after 8:30 PM. ?? Your prescriptions were sent electronically. ?? Please call MD office with any questions or concerns. Follow up in office as scheduled.?? Scheduled Follow-Up Appointments Wednesday 3:00 PM EST ?? Type: Pre-Op With: Tyler (UNIVERSAL BRANCH CONSULTANT) Grey REYES Where: [facility] [address] [place] [address]- Status: Pending Wednesday2025 9:00 AM EST ?? Type: Return With: Winter Meeks Where: [facility] [address] [place] [address]- Status: Pending You Need to Schedule the Following Appointments Follow Up with??Follow up, 2 weeks postop Discharge Medications JONATAN MANRIQUEZ :1985 Visit Date:05/28/2025 Medications: Please continue your medications until treatment is completed or stopped by your provider. You may resume your daily prescription medications. Discuss any questions related to medications with your provider. What How Much When Why Instructions Next Dose Unchanged Acetaminophen (acetaminophen 325 mg oral capsule) 2 capsule Oral Every 6 hours as needed for as needed for pain Right ovarian cyst Ordering Physician: Tyler (UNIVERSAL BRANCH CONSULTANT) Grey REYES Pickup at [facility] #[id number] Unchanged Ibuprofen (ibuprofen 600 mg oral tablet) 1 tab(s) Oral Every 6 hours as needed for for pain Right ovarian cyst Ordering Physician: Tyler (UNIVERSAL BRANCH CONSULTANT) [id number] Unchanged Levothyroxine (levothyroxine 150 mcg (0.15 mg) oral tablet) 1 tab(s) Oral Daily Ordering Physician: Arturo Louie MD Unchanged Omeprazole (omeprazole 40 mg oral enteric coated capsule) 1 capsule Oral Daily Dyspepsia Duration: 90 Days Special Instructions: Take on an empty stomach and wait 30 minutes before eating/ drinking Ordering Physician: Winter Meeks ?? Unchanged Ondansetron (ondansetron 4 mg oral tablet) 1 tab(s) Oral Every 8 hours as needed for Nausea & Vomiting Right ovarian cyst Ordering Physician: Tyler (UNIVERSAL BRANCH CONSULTANT) Grey REYES at [facility] CU[facility] and some sugar #[id number] Unchanged Oxycodone (oxyCODONE 5 mg oral tablet) 1 tab(s) Oral Every 6 hours as needed for as needed for pain Right ovarian cyst Ordering Physician: Tyler (UNIVERSAL BRANCH CONSULTANT) Grey REYES at [facility] CUPS and some sugar #[id number] Unchanged Simethicone (simethicone 80 mg oral tablet, chewable) 1 tab(s) Chew 4 times a day as needed for as needed for gas Right ovarian cyst Ordering Physician: Tyler (UNIVERSAL BRANCH CONSULTANT) Grey REYES at [facility] CUPS and some sugar #[id number] Unchanged tirzepatide (Zepbound 5 mg/ 0.5 mL subcutaneous solution) 5 Milligram Subcutaneous Injection Every week Special Instructions: rotate injection sites ?? Pharmacy Information [facility] #[id number]: [address], [place] [id number] [phone] Allergies (NKA means No Known Allergies) Adhesive Bandage aspirin??red itchy codeine??red itchy morphine??rash shellfish??throat swells Education Materials Below is the list of Educational Leaflet Providered with your Discharge Instructions. [employer] Patient Education - Surgery Medical Daystay Surgical Overnight Discharge Instructions?? [employer] Patient Education - ??NSAID Analgesic Schedule?? Valuables and Belongings I fully understand and agree that [facility] accepts no responsibility for all [...] encouraged to send valuables and belongings home. ?? Review of Valuable and Belonging List: With patient Date for Pt to Sign Valuables/Belongings: 05/28/25 13:20:00 ?? Valuables & Belongings ?? Clothes Electronic devices Jewelry Monetary Items Personal devices Miscellaneous Medications (Valuables) Valuables at Bedside Pants, Shirt, Shoes, Undergarments Cell phone, Other: apple watch Earrings Money, Purse, Wallet Glasses ? Valuables Sent Home ? Valuables Sent to Security ? Valuables Sent to Locker ? Other Discharge Information ? Pulmonary Rehab Status?? Pulmonary Rehab Discharge Status?? Respiratory Rate: 18 br/min ? Common Emergency Awareness Tips IS IT [...] are strongly encouraged to quit. Please call [facility] [employer] at [phone] or [phone] ([phone]) or log in to [email or web address] for referrals to smoking cessation programs. ?? The National Suicide Prevention Hotline is available 08/02 if you or someone you know needs to find a reason to keep living. By calling 7-308-475-[employer] (0734) you'll be connected to a skilled, trained counselor at a crisis center in your area. SURGERY DISCHARGE INSTRUCTIONS SIGNATURE PAGE MANRIQUEZJONATAN Location:[facility] Registration Date and Time:05/28/2025 12:56 EST Primary Care Physician: Adriane Rojas, Attending Physician: Tyler (UNIVERSAL BRANCH CONSULTANT) Grey REYES, I JONATAN MANRIQUEZ, have received the above patient education materials/instructions and have verbalizedunderstanding. If ambulance or transport services are being used I further acknowledge being given a choice of service. ?? If you need to contact me, please call me at this number: . 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 ? * Orville PIERSON, Ashlie: PERFORM Event Display: Patient Education Leaflets Authored Date: [id number] NSAID Analgesic Schedule ?? 604 NSAID???s Analgesic Schedule ?? Pain is the primary source of illness following your procedure and can include dehydration, difficulty and painful swallowing, and weight loss. These symptoms can lead to increased post-operative visits and hospital readmission. The best way to control pain is to take pain medications regularly. Your doctor has recommended both Ibuprofen and Acetaminophen (generic/store brands are okay, too). These can be picked up over the counter at your pharmacy of choice. Follow the instructions on the bottle to determine the proper dosage to give. The simplest way to take these medications it to rotate the two at 3-hour intervals. Here is a sample diagram. The time you take your medications may vary from this example. Do not give Ibuprofen more than every 6 hours or Acetaminophen every 4 hours. Do not give Acetaminophen if your doctor has given you a prescription that contains Acetaminophen. ? Patient Care team information Care Team Personnel Name: Vidya Lobo RN Position: [facility] RN Member Role: Primary Care Nurse Name: Joy Herron RN Position: [facility] PATRICE Nurse Member Role: Primary Care Nurse Name: Adriane Rojas Position: Reference Physician Member Role: PCP Address: [address] [place] [address] [place] [address] Telecom: Care Team Related Persons Name: POLO MANRIQUEZ Name: MAGUI MANRIQUEZ Name: ALCIDES WARNER Insurance Providers Guarantor name: JONATAN MANRIQUEZ Health Plan Information #: 1 Payer: [facility] POS Payer Identifier: NA Member Number: [id number] Group Number: [id number] Subscriber Identifier: [id number] Relationship to Subscriber: self Coverage Type: Commercial Managed Care - HMO Coverage Verification Date: NA Telecom: NA Address:
--- NOTE | 2025-05-30 14:00 | A.OFFWM_ITS ---
Intake Intake Visit Reasons: OV BH Intake Allergies morphine (MORPHINE) Allergy (Severe, Verified 03/30/25 16:18) CHEST PRESSURE AND TIGHTNESS aspirin (ASPIRIN) Allergy (Intermediate, Verified 03/30/25 16:18) RASH, redness and itching codeine (CODEINE) Allergy (Intermediate, Verified 03/30/25 16:18) RASH, redness and itching ibuprofen (From Motrin) Allergy (Intermediate, Verified 03/30/25 16:18) Hives shellfish derived (SHELLFISH DERIVED) Allergy (Intermediate, Verified 03/30/25 16:18) RED/ITCH STERI-STRIP ADHESIVE Allergy (Intermediate, Uncoded 03/30/25 16:18) RASH PFSH Medical History (Updated 06/11/25 @ 21:04 by Lee Rea MD) Vitamin B1 deficiency Diaphragmatic hernia BMI 35.0-35.9,adult Obesity Generalized postprandial abdominal pain Hepatic steatosis Elevated LFTs Low vitamin D level Abnormal mammogram Insomnia Fatigue Daytime somnolence Vitamin D deficiency Screening for cardiovascular condition Routine physical examination Asthma exacerbation Ganglion cyst of dorsum of left wrist History of hypothyroidism Surgical History (Updated 04/23/25 @ 07:44 by Priit Sandoval RN) History of hysterectomy History of thyroidectomy History of appendectomy History of cholecystectomy History of section Family History (Updated 01/18/25 @ 08:29 by Diana Rea MA) Father Diabetes Hyperlipidemia Mother Diabetes Skin cancer Hyperlipidemia Asthma Brother Brain cancer Social History Household Members: Spouse and Children Housing: House Alcohol intake: never Patient Tobacco Use Status: Never used Tobacco e-Cigarette/Vaping Use: Never Used Second Hand Smoke Exposure: No service: No Current occupational status: employed 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 She was initially referred by her PCP and is interested in medical weight loss, but remains open to surgical intervention if appropriate. Presenting Concerns Referral Source WMP-Provider Reason for referral Completion of behavioral health assessment as part of process for weight-loss surgery. Precipitating Event Obesity, other medical conditions. Living Situation Current Living Situation Own At risk of losing current housing? No Satisfied with current living situation? Yes Comments PT lives with and 2 kids. Food/Weight/Diet Expectations of change PT starred the program at 194Lbs and the Initial goal is to lose 10% of her weight before surgery, which is about 20lbs. Ultimate weight goal: 174lbs before surgery Patient goals are: 140Lbs. Recent weight 05/25/2025: 181Lbs PT is implementing the following: Current meal plan: combination of shakes and 1 meal at day. Exercise plan: treadmill - unable for the next 6 weeks as she had a surgery recently. Scale: yes Communication w/ provider: Fridays. History/Relationship with food PT reports she loves eat, but denies stress- eating. Also likes sweets. Example of meals before starting the program: Breakfast: skip - 1 cup of coffee Lunch: Fast food - Chicken/fries or a big mac Dinner: home made, Uzbek style, rice/beans/pork Snacks: multiple, chips, cookies, donuts. Always something sweet after dinner. Drinks/Liquids: cofee: 1 cup w/ cream and sugar. Soda: 3-4 cans at day. Juice: none. Water: 1 glass at day. Energy drinks: none. Tea: none. History/Relationship with weight Denies being overweight in childhood. She was abound 105Lbs in HS. PT reports thyroid issues are directly related to weight-gain. In the last 10 years, the patient's Lowest weight was 181Lbs (current) and highest 205Lbs when . History/Relationship with dieting Excercise. Binge Eating Do you frequently eat large amounts of food in short periods of time, not feeling physically hungry? No Do you feel out of control when you eat a large amount of food in a short period of time? No Do you eat large amounts of food rapidly and typically alone? No Night Eating Do you wake up at least once during the night to eat? No If you wake up in the night, do you find that it is necessary to eat something in order to fall back asleep? No Do you have little or no appetite in the morning and feel very hungry in the evening, often overeating between dinner and when you go to bed? Yes Social History Family history and relationship PT has been for about 15 years, together for 26. They have 2 kids, they are 12 and 3. Parents alive, they live in [place], she has 4 brothers and 2 sisters. PT is closer with older brother and younger sister. Parental/Familial doctor of naprapathy obligations 2 children. Developmental history and status None, currently WNL Social support , children. Sister who has weight loss surgery. Community support Co-worker who is also doing GLP-1. PCP. Sikhism/Spirituality Adventism. Go to [employer] weekly. Cultural/Ethnic information . PT was born in [place], moved to [place] at age 3. Legal Involvement and History Current or historical involvement with the legal system? None reported. Education Highest grade completed HS. Preferred learning style Learn by doing Currently enrolled in educational program? No Interested in further educational program? Yes Educational Interests/Skills Interested in become a real state agent. 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 ) Wants help to find employment? No Meaningful activities Family activities, watch tv. Financial Situation Describe current financial situation Comfortable Financial assistance? None Service Service? No Mental Health and Addiction Treatment Current/Past substance abuse? No Comments Alcohol: None Cigarettes/Tobacco: None Cannabis/Edibles: None. Current/Past addictive behavior concerns? No Psychiatric history The patient reports no history of mental health treatment, including outpatient, crisis, or inpatient care. She denies any history or current concerns regarding suicidal ideation, suicide attempts, self-harm, or harm to others. In 2020, she was evaluated by her PCP for acute anxiety related to fertility challenges and miscarriages, and was prescribed trazodone at that time. Her symptoms improved, and she has not experienced any further mental health concerns since then. Medical and Physical Health Summary Additional Medical History not covered in history None aditional Sexual History concerns None reported. Physical exam in the last year? Yes Pain Screening Current pain? No Pain in the last few months? No Medications Is the patient compliant with medications? Yes Does the patient have Pearson Guardian in place? Not applicable Does the patient use complimentary health approaches? No Trauma/Abuse History History of trauma? No Questionnaires PHQ-9 Over the last 2 weeks, how often have you been bothered by any of the following problems? 1. Little interest or pleasure in doing things: not at all 2. Feeling down, depressed, or hopeless: not at all 3. Trouble falling or staying asleep, or sleeping too much: more than half the days 4. Feeling tired or having little energy: not at all 5. Poor appetite or overeating: not at all 6. Feeling bad about yourself - or that you are a failure or have let yourself or your family down: not at all 7. Trouble concentrating on things, such as reading the newspaper or watching television: not at all 8. Moving or speaking so slowly that other people could have noticed. Or the opposite - being so fidgety or restless that you have been moving around a lot more than usual: not at all 9. Thoughts that you would be better off or of hurting yourself in some way: not at all Total score: 2 Depression Screening Interpretation: Negative Depression Screening Done: Yes 37745 - PHQ-9 Billing: Yes Source: Developed by Drs. Ortega Alaniz, Gianna Carrion, Jeff Cardoso and colleagues, with an educational ismael from [employer]. Binge Eating Scale Group 1 A. I don't feel self-conscious about my wt. or body size when I'm with others. B. I feel concerned about how I look to others, but it normally does not make me fell disappointed with myself C. I do get self-conscious about my appearance and wt. which makes me feel disappointed in myself. D. I feel very self-conscious about my wt. and frequently I feel intense shame and disgust for myself. I try to avoid social contacts because of my self- consciousness. Response Group 1: B Group 2 A. I don't have any difficulty eating slowly in the proper manner. B. Although I seem to gobble down foods, I don't end up feeling stuffed because of eating to much. C. At times, I tend to eat quickly and then, I feel uncomfortably full afterwards. D. I have the habit of bolting down my food, without really chewing it. When this happens I usually feel uncomfortably stuffed because I've eaten to much. Response Group 2: A Group 3 A. I feel capable to control my eating urges when I want to. B. I feel like I have failed to control my eating more than the average person. C. I feel utterly helpless when it comes to feeling in control of my eating urges. D. Because I feel so helpless about controlling my eating I have become very desperate about trying to get control. Response Group 3: A Group 4 A. I don't have the habit of eating when I'm bored. B. I sometimes eat when I'm bored, but often I'm able to get busy and get my mind off food. C. I have a regular habit of eating when I'm bored, but occasionally, I can use some other activity to get my mind off eating. D. I have a strong habit of eating when I'm bored. Nothing seems to help me breath the habit. Response Group 4: B Group 5 A. I'm usually physically hungry when I eat something. B. Occasionally, I eat something on impulse even though I really am not hungry. C. I have the regular habit of eating foods, that I might not really enjoy, to satisfy a hungry feeling even though physically, I don't need the food. D. Although I'm not physically hungry, I get a hungry feeling in my mouth that only seems to be satisfied when I eat a food, like sandwich, that fills my mouth. Sometimes, when I eat the food to satisfy my mouth hunger, I then spit the food out so I won't gain weight. Response Group 5: A Group 6 A. I don't feel any guilt or self-hate after I overeat. B. After I overeat, occasionally I feel guilt or self-hate. C. Almost all the time I experience strong guilt or self-hate after I overeat. Response Group 6: B Group 7 A. I don't lose total control of my eating when dieting even after periods when I overeat. B. Sometimes when I eat a forbidden food on a diet, I feel like I blew it and eat even more. C. Frequently, I have the habit of saying to myself, I've blown it now, why not go all the way, when I overeat on a diet. When that happens I eat more. D. I have a regular habit of starting a strict diets for myself but I break the diets by going on an eating binge. My life seems to be either a feast or famine. Response Group 7: B Group 8 A. I rarely eat so much food that I feel uncomfortably stuffed afterwards. B. Usually about once a month, I each such a quantity of food, I end up feeling very stuffed. C. I have regular periods during the month when I eat large amounts of food, either at mealtime or at snacks. D. I eat so much food that I regularly feel quite uncomfortable after eating and sometimes a bit nauseous. Response Group 8: A Group 9 A. My level of calorie intake does not go up very high or go down very low on a regular basis. B. Sometimes after I overeat, I will try to reduce my caloric intake to almost nothing to compensate for the excess calories I've eaten. C. I have a regular habit of overeating during the night. It seems that my routine is not to be hungry in the morning but overeat in the evening. D. In my adult years, I have had week-long periods where I practically starve myself. This follows periods when I overeat. It seems I live a life of either feast or famine. Response Group 9: B Group 10 A. I usually am able to stop eating when I want to. I know when enough is enough . B. Every so often, I experience a compulsion to eat which I can't seem to control. C. Frequently, I experience strong urges to eat which I seem unable to control, but at other times I can control my eating urges. D. I feel incapable of controlling urges to eat. I have a fear of not being able to stop eating voluntarily. Response Group 10: A Group 11 A. I don't have any problem stopping eating when I feel full. B. I usually can stop eating when I feel full but occasionally overeat leaving me feeling uncomfortably stuffed. C. I have a problem stopping eating once I start and usually I feel unco mfortably stuffed after I eat a meal. D. Because I have a problem not being able to stop eating when I want, I sometimes have to induce vomiting to relieve my stuffed feeling. Response Group 11: A Group 12 A. I seem to eat just as much when I'm with others, Family social gatherings as when I'm by myself. B. Sometimes, when I'm with other persons, I don't eat as much as I want to eat because I'm self-conscious about my eating. C. Frequently, I eat only a small amount of food when others are present, because I'm very embarrassed about my eating. D. I feel so ashamed about overeating that I pick times to overeat when I know no one will see me. I feel like a closet eater. Response Group 12: A Group 13 A. I eat three meals a day with only an occasional between meal snack. B. I eat 3 meals a day, but I also normally snack between meals. C. When I am snacking heavily, I get in the habit of skipping regular meals. D. There are regular periods when I seem to be continually eating, with no planned meals. Response Group 13: C Group 14 A. I don't think much about trying to control unwanted eating urges. B. At least some of the time, I feel my thoughts are pre-occupied with trying to control my eating urges. C. I feel that frequently I spend much time thinking about how much I ate or about trying not to eat anymore. D. It seems to me that most of my waking hours are pre-occupied by thoughts about eating or not eating. I feel like I'm constantly struggling not to eat. Response Group 14: A Group 15 A. I don't think about food a great deal. B. I have strong craving for food but they last only for brief periods of time. C. I have days when I can't seem to think about anything else but food. D. Most of my days seem to be pre-occupied with thoughts about food. I feel like I live to eat. Response Group 15: B Group 16 A. I usually know whether or not I'm physically hungry. I take the right portion of food to satisfy me. B. Occasionally, I feel uncertain about knowing whether or not I'm physically hungry. A these times it's hard to know how much food I should take to satisfy me. C. Even though I might know how many calories I should eat, I don't have any idea what is a normal amount of food for me. Response Group 16: A Binge Eating Score: 8 Score less than 17 Minimal Risk Score between 18-26 Moderate Risk Score between 27-46 High Risk Assessment & Plan Assessment & Plan (1) Adjustment disorder: Code(s): F43.20 - Adjustment disorder, unspecified (2) Pre-bariatric surgery psychological evaluation: Code(s): Z71.89 - Other specified counseling Plan Following a comprehensive behavioral health assessment?including review of the Binge Eating Scale, PHQ-9, mental status evaluation, and patient self- report?there are currently no behavioral health contraindications to proceeding with bariatric surgery. The patient demonstrates appropriate insight, motivation, and psychological readiness for the procedure. No active psychiatric symptoms or maladaptive eating behaviors were identified that would impede surgical outcomes at this time. The patient is cleared from a behavioral health perspective to proceed with bariatric surgery and documentation can be submitted for insurance approval as indicated. PT will return for a follow-up behavioral health visit 1?4 weeks postoperatively to monitor psychological adjustment, reinforce coping strategies, and screen for any emerging concerns such as mood changes, adjustment difficulties, or disordered eating patterns. Additional behavioral health support will be provided as needed based on postoperative assessment. Next brisa: 1-4 weeks PO[place] [address] Psy Diag Eval Patient Type New Diagnoses Adjustment disorder F43.20 Pre-bariatric surgery psychological evaluation Z71.89 Additional Codes PHQ-9 - 37384 - PHQ-9 Billing: Yes ([id number]) Time Spent (min) 60
--- OUTSIDE RECORDS SUMMARY | 2025-05-30 17:04 | XMS_ITS | Clinical Summary ---
Author Organization [facility] Address [address] [place] [address] Phone Care Team Providers Care Vulnerability Assessment Analyst Name Role Phone Physician, Pcp Unknown Primary [...] Indicated Streptococcus Group A 01/06/2025 01/06/2025 Insurance [facility] Care Teams Vulnerability Assessment Analyst Relationship Specialty Start Date End Date Physician, Pcp Unknown PCP - General 01/06/25
== END 2025-05-30 15:07 | disposition home or self-care (01) ==
LOC: HO.HBST 13:52
PROVIDERS: PCP Physician Assistant Medical; Visit Provider Counselor Mental Health
DX: F43.20 Adjustment disorder, unspecified (principal); Z71.89 Other specified counseling
CPT/HCPCS: 90791

== ENCOUNTER 2025-07-16 07:39 | Outpatient (REF) | payer OTHER, SELFPAY ==
--- OUTSIDE RECORDS SUMMARY | 2025-07-12 23:59 | XMS_ITS | Continuity of Care Document ---
Author Organization [facility] Address [address] [place] [address]- Care Team Providers Care Last Ironer Name Role Phone Kaylah SNOW, Mariposa Cassidy Primary Care Physician [place] [facility] [place] [id number] Date(s): 06/12/25 - 07/12/25 [facility] [address] [place], [place] [address] Attending Physician: Farzad Resendez Admitting Physician: Farzad Resendez Referring Physician: Farzad Resendez Encounter Type: Triage Allergies, Adverse Reactions, Alerts Substance Criticality Severity Reaction Reaction Severity Status codeine red itchy Active aspirin red itchy Active morphine rash Active shellfish throat swells Active Adhesive Bandage 1 A ctive 1rash Immunizations Given and Recorded Vaccine Date [...] Refills, Maintenance, 09/17/23 3:00:00 PM EST, Tablet, [id number], Partial fill upon patient request if the [...] Maintenance, 04/19/25 2:18:00 PM EDT, EC Capsule, [id number], Partial fill upon patient request if the prescription is for a schedule II opioid drug., 158, cm, 04/19/25 13:19:00 EDT, Height, 89.8, kg, 02/10/24 8:31:00 EDT, Dry Weight Start Date: 04/19/25 Stop Date: 10/16/25 Status: Ordered Medication Dispense Status: Completed Quantity: 90.0 Unit: capsule Total Allowed Fills: 2 Fills Dispensed: 0 Indications: Epigastric pain; Zepbound 5 mg/0.5 mL subcutaneous solution = [...] Active PCOS (polycystic ovarian syndrome) Confirmed Active Surgical menopause Confirmed Active Social History Social History Type Response Smoking Status Never (less than 100 in lifetime) entered on: 08/25/21 Sexual Orientation Self described orien tation: ; Straight or heterosexual Sex Female Sex Representation Female (finding) Patient Care team information Care Team Personnel Name: Vidya Lobo RN Position: S RN Member Role: Primary Care Nurse Name: Joy Herron RN Position: LEEANNE IBRAHIM Nurse Member Role: Primary Care Nurse Name: Mariposa Adrian NP Position: Reference Physician Member Role: PCP Address: [address] [place], [place] [address] Telecom: Care Team Related Persons Name: POLO MANRIQUEZ Name: MAGUI MANRIQUEZ Name: ALCIDES WARNER Insurance Providers Guarantor name: JONATAN AGUAYOTIZ Health Plan Information #: 1 Payer: [facility] Payer Identifier: NA Member Number: [id number] Group Number: [id number] Subscriber Identifier: NA Relationship to Subscriber: self Coverage Type: Commercial Managed Care - HMO Coverage Verification Date: NA Telecom: NA Address: Health Plan Information #: 2 Payer: [facility] POS Payer Identifier: NA Member Number: [id number] Group Number: [id number] Subscriber Identifier: NA Relationship to Subscriber: self Coverage Type: Coverage Verification Date: NA Telecom: NA Address:
--- NOTE | ~2025-07-16 | MM_ITS ---
EXAMINATION(S): 1. MM DIAGNOSTIC DIGITAL BREAST TOMOSYNTHESIS, BILATERAL 2. TARGETED ULTRASOUND OF THE LEFT BREAST CLINICAL INFORMATION: This is a second 6-month follow-up of left breast mass or complicated cyst at 2 o'clock position at 8 cm from the nipple COMPARISON: Comparison made to multiple prior mammograms, most recent left mammogram on June 09, 2024, and most remote April 14, 2019 . Left breast ultrasound on December 07, 2024 and June 09, 2024. TECHNIQUE: Digital breast tomosynthesis is performed in both the mediolateral oblique and craniocaudal views along with computer-aided detection (CAD). Synthesized 2D images are generated from the tomosynthesis. FINDINGS: BREAST COMPOSITION: There are scattered areas of fibroglandular density. RIGHT BREAST: No significant masses, suspicious calcifications or other abnormalities are seen. LEFT BREAST: Redemonstration of the oval mass in the upper outer quadrant at about 9 to 10 cm from the nipple, similar to when initially described in April 2024. No new masses, suspicious calcifications or other abnormalities are seen. Targeted ultrasound of the left breast was performed at the location of the previously described sonographic correlate. The survey shows a 1.3 x 0.7 x 1.2 cm oval hypoechoic solid mass or complicated cyst as previously described, at 2 o'clock position 8 cm from the nipple. Prior measurements were 1.2 x 0.7 x 1.0 cm in May 2024 and 1.1 x 0.7 x 1.0 cm in November 2024. No internal vascularity demonstrated with color Doppler evaluation. MM/MM tomosynthesis diagnostic BI IMPRESSION: RIGHT BREAST: Negative, no mammographic evidence of malignancy. Normal interval follow-up is recommended in 12 months. LEFT BREAST: 1.3 cm oval hypoechoic solid mass or complicated cyst at 2 o'clock position at 8 cm from the nipple, not significantly changed mammographically or sonographically since May 2024. Probably benign. A 6-month left breast ultrasound is recommended. ASSESSMENT: BI-RADS: Category 3: Probably benign RECOMMENDATION: 6 Month F/U Results were provided to the patient at time of visit by the technologist. This patient's information was entered into a reminder system with a target due date for their next mammogram. Electronically signed by: Emeterio Thompson MD 07/16/2025 08:47 AM LARRY RP
--- OUTSIDE RECORDS SUMMARY | 2025-07-16 07:41 | XMS_ITS | Clinical Summary ---
Author Organization [facility] Address [address] [place] [address] Phone Care Team Providers Care Diesel Trailer Mechanic Name Role Phone Physician, Pcp Unknown Primary [...] on file Sexual Orientation Not on file Last Filed Vital Signs Vital Sign Reading [...] Indicated Streptococcus Group A 01/06/2025 01/06/2025 Insurance [facility] Care Teams Diesel Trailer Mechanic Relationship Specialty Start Date End Date Physician, Pcp Unknown PCP - General 01/06/25
== END 2025-07-16 07:40 | disposition home or self-care (01) ==
LOC: HO.MAMMO 07:39
PROVIDERS: PCP Physician Assistant Medical; Visit Provider Physician Assistant Medical
DX: R92.8 Other abnormal and inconclusive findings on diagnostic imaging of breast (principal)
CPT/HCPCS: 76642; 77062; 77066

== ENCOUNTER → 2025-07-16 08:00 | Outpatient (BNV) | payer OTHER, SELFPAY | PROVIDERS: PCP Physician Assistant Medical; Visit Provider Radiology Body Imaging | DX: R92.8 Other abnormal and inconclusive findings on diagnostic imaging of breast (principal); N63.12 Unspecified lump in the right breast, upper inner quadrant | CPT/HCPCS: 76642; 77062; 77066 ==